=== PATIENT | female | born 1960 | race Caucasian/White ===

== ENCOUNTER 2023-08-30 12:44 | Outpatient (OUT) | payer OTHER, SELFPAY ==
--- NOTE | 2023-08-30 12:52 | VEIN_ITS ---
Patient Name: JONA ALLEN MR#: [id number] : 1960 Exam Date: 08/30/2023 Ordering Doctor: DR HEMANT MCHUGH M.D. RADIOLOGY REPORT PROCEDURE: VC EXT VENOUS REFLUX OSKAR LMTD COMPARISON: None. INDICATIONS: I83.813 Bilateral painful varicose veins TECHNIQUE: Duplex imaging of the lower extremity to assess the deep and superficial venous system for the presence of deep or superficial venous incompetence and to document the location and severity of disease. The study includes evaluation of the great saphenous vein (GSV), anterior accessory saphenous vein (AASV) and small saphenous vein (SSV). Patient scanned in reverse Trendelenburg and standing. FINDINGS: RIGHT LOWER EXTREMITY: Saphenofemoral Junction Reflux: Yes 7.0mm 0.9 sec GSV: Diam (mm) Reflux/ Time (sec) Proximal Thigh 5.5 Yes 1.6 Mid Thigh 4.3 Yes 1.3 Distal Thigh 5.3 Yes 1.2 Prox Calf 7.6 Yes 2.0 Mid Calf 4.2 Yes 0.5 Saphenopopliteal Junction Reflux: 1.3mm No SSV: Proximal Calf 1.5 No Mid Calf 0.8 No AASV: Proximal Thigh 3.7 Yes 1.2 Mid Thigh 2.7 No Distal Thigh Thrombi: No acute or chronic thrombus visualized Compressibility: Normal Flow: Normal Preforator: Dist/med 3.4mm with 0.8s reflux. Mid/med calf 3.1mm with 0.7s reflux. Tech Note: Incompetent GSV. Patent varicose vein mid/med calf 4.6mm with 1.2s reflux. Patent varicose vein prox/med calf 6.9mm with 1.3s reflux. Patent varicose vein medial knee 4.6mm with 1.0s reflux. LEFT LOWER EXTREMITY: Saphenofemoral Junction Reflux: Yes 8.9 mm 2.1 sec GSV: Diam (mm) Reflux/Time (sec) Proximal Thigh 6.3 Yes 2.4 Mid Thigh 4.3 Yes 0.7 Distal Thigh 5.6 Yes 1.7 Prox Calf 3.6 Yes 4.5 Mid Calf 1.7 No Saphenopopliteal Junction Relux: 3.3 mm No SSV: Proximal Calf 2.3 Yes 1.1 Mid Calf No AASV: Proximal Thigh 1.6 Mid Thigh 1.8 Distal Thigh Thrombi: No acute or chronic thrombus visualized Compressibility: Normal Flow: Normal [employer]: Dist/med calf 3.4mm with 1.2s reflux. Dist/med calf 4.6mm with 0.7s reflux. Tech Note: Incompetent GSV. Patent varicose vein mid/med calf 5.6mm with 1.7s reflux. Patent varicose vein dist/med calf 1.1s reflux. CONCLUSION: 1. 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 Dictated by: Osmany Warren M.D. on 08/30/2023 at 14:51 Approved by: Osmany Warren M.D. on 08/30/2023 at 15:44
--- NOTE | 2023-08-30 12:52 | VEIN_ITS ---
Patient Name: JONA ALLEN MR#: [id number] : 1960 Exam Date: 08/30/2023 Ordering Doctor: DR HEMANT MCHUGH M.D. RADIOLOGY REPORT PROCEDURE: VC FACILITY EST COMPREHENSIVE VEIN CENTER - OFFICE VISIT INITIAL COMPARISON: None. PROGRESS NOTES: [age] year old female who presents with a 40 year history of gradual onset dilated bulging veins, discolored veins, leg pain, muscle cramping. The patient's leg symptoms are symmetric bilaterally. There has been a progression of symptoms over time. This increases with prolonged leg dependency. The patient describes an improvement with rest, elevation, exercise, and support stockings. The patient denies any signs and symptoms to suggest arterial ischemia. The patient describes a family history varicose veins on maternal side. The patient has drinking and smoking history of : Occasional alcohol consumption; no tobacco use. Patient has a past medical history significant for hypercoagulopathy. The patient denies a history of deep venous thrombus or pulmonary embolus. See separate history and physical for medication list. No prior treatment for varicose or spider veins. Current use of compression stockings. After review of nurse notes, history and physical exam I discussed at length the pathophysiology of venous hypertension and possible treatments, therapies and strategies available. We discussed at length the importance of elevating the lower extremities above the level of the heart, increased physical activity and compression stocking use. Ultrasound venous reflux study performed today was discussed at length with the patient. The report demonstrates abnormally dilated and incompetent great saphenous veins bilaterally. Multiple dilated incompetent branch saphenous varicosities bilaterally. Segments demonstrating reflux within the right anterior accessory saphenous vein and left small saphenous vein, but vein diameter remains small. PHYSICAL EXAM: The right leg demonstrates multiple varicosities, numerous spider veins, no ulceration, no edema, no skin discoloration. The left leg demonstrates multiple varicosities, numerous spider veins, no ulceration, no edema, no skin discoloration. Both thighs, legs and feet were symmetrically warm to the touch. Good posterior tibial and dorsalis pedis pulses were present bilaterally. VEIN/VC Facility EST Comprehensive IMPRESSION: 1. Bilateral lower extremity venous insufficiency 2. Bilateral lower extremity varicose veins 3. No significant lower extremity subcutaneous edema 4. No flow significant arterial disease 5. CEAP: C2, EC, , CT PLAN: 1. Continued use of compression stockings 2. Elevated legs and increased physical activity symptomatic relief 3. Endovenous laser ablation of right and left great saphenous veins followed by microfoam chemical ablation of incompetent branch saphenous varicosities bilaterally followed by sclerotherapy bilaterally. Nurse notes, history and physical were reviewed and confirmed, see attached forms. The nurse was present throughout the physical exam and consultation Dictated by: Osmany Warren M.D. on 08/30/2023 at 15:44 Approved by: Osmany Warren M.D. on 08/30/2023 at 15:57
== END 2023-08-30 12:45 | disposition home or self-care (01) ==
LOC: VC 12:46
PROVIDERS: PCP Internal Medicine; Visit Provider Radiology Diagnostic Radiology
DX: I83.813 Varicose veins of bilateral lower extremities with pain (principal)
CPT/HCPCS: 93970; G0463

== ENCOUNTER 2023-09-17 07:33 | Outpatient (OUT) | payer OTHER, SELFPAY ==
--- NOTE | 2023-09-17 07:35 | VEIN_ITS ---
[address] [address] Patient Name: JONA ALLEN MRN: [id number] date: 1960 Sex: F Assigned Patient Location: Current Patient Location: Accession/Order Number: [id number] Exam Date: 09/17/2023 08:00 Report Date: 09/17/2023 10:03 At the request of: HEMANT MCHUGH Procedure: VC Endovenous Ablation 1VeinRT EXAMINATION: VC Endovenous Ablation 1Vein right great saphenous vein HISTORY: Pain due to varicose veins of bilateral legs I83.813 COMPARISON: No relevant comparison available. TECHNIQUE: The risks and benefits of the procedure had been previously discussed, and were rediscussed at length. Informed written consent was obtained. Jahaira Monsalve and Donald Corral assisted. Time out procedure was performed. The right lower extremity was prepared and draped in the usual sterile fashion to allow knee flexion in the sterile field. Duplex ultrasound probe was draped in a sterile cover, sterile transmission gel was used. Venous mapping was performed with the areas of dilation and large tributaries marked. The total length was 53.5 cm from the entry 8 cm above the medial malleolus to 3 cm below the saphenofemoral junction. The diameter of the greater saphenous vein ranged from 4-6 mm. A 30 gauge needle and 1% buffered lidocaine was used to anesthetize the entry site. A 4 mm incision was made with a scalpel and the saphenous vein was entered percutaneously under direct ultrasound guidance with a micropuncture set, a single stick was successful in gaining access. A micro-guide wire was inserted and the needle removed. A micro-set including a dilator was inserted over the microwire and the needle and dilator were removed. A 0.018 guide wire was inserted through the micro-set and threaded through the saphenous vein to the saphenofemoral junction. The dilator was removed and an introducer sheath was inserted over the wire until the end of the sheath entered the saphenofemoral junction. The dilator and wire were removed and the 600 micron fiber was introduced and placed and positioned so that it extended beyond the sheath and was 3 cm peripheral to the saphenofemoral femoral junction. Final position of the fiber was determined by ultrasound guidance and duplex imaging. Tumescent anesthetic was delivered by ultrasound guidance. 275 cc of fluid was delivered along the entire course of the saphenous vein. The solution consisted of 1000 cc of normal saline with 40 mL of 1% lidocaine and 20 mL of sodium bicarbonate. A final positioning check was made. The energy source was turned on by means of the foot pedal and the fiber and sheath were withdrawn. The total number of Joules delivered was 2596. The laser was active for 324 seconds under continuous pulse, average laser use of 8 J. Laser start time 8:51 AM 09/17/2023 . Laser stop time 8:57 AM 09/17/2023 . A duplex ultrasound revealed compressibility and flow at the saphenofemoral junction immediately after the procedure. Hemostasis at the access site was achieved. The skin incision of the saphenous vein was closed with a 4 x 4. A compression stocking was applied. Postop instructions were given. A follow up appointment was recommended and scheduled. The patient tolerated the procedure well and was discharged in good condition . VEIN/VC Endovenous Ablation 1VeinRT IMPRESSION: Technically successful endovenous laser ablation of the right great saphenous vein Electronically authenticated by: HEMANT MCHUGH Date: 09/17/2023 10:03
[2023-09-17] MEDS: LIDOCAINE HCL 1% 100 MG/10 ML MDV INJ (08:26)
[2023-09-17] MEDS: 0.9 % SODIUM CHLORIDE 500 ML, LIDOCAINE HCL 20 ML, SODIUM BICARBONATE 10 MEQ INJ (08:27)
== END 2023-09-17 07:34 | disposition home or self-care (01) ==
PROVIDERS: PCP Radiology Diagnostic Radiology; Visit Provider Radiology Diagnostic Radiology
DX: I83.813 Varicose veins of bilateral lower extremities with pain (principal)
CPT/HCPCS: 36478

== ENCOUNTER 2023-09-25 08:06 | Outpatient (OUT) | payer OTHER, SELFPAY ==
--- NOTE | 2023-09-25 08:07 | VEIN_ITS ---
Patient Name: JONA ALLEN MR#: [id number] : 1960 Exam Date: 09/25/2023 Ordering Doctor: DR CORBIN SHEPHERD M.D. RADIOLOGY REPORT PROCEDURE: VC EXT VENOUS RT LMTD COMPARISON: None. INDICATIONS: I80.01 Phlebitis of superficial veins of rt lower extremity TECHNIQUE: Lower extremity lopez scale and Duplex Doppler evaluation of the deep venous system from the inguinal ligament through the calf veins. FINDINGS: REGION: Right lower extremity. THROMBI: Negative for DVT. Heat induced thrombus visualized 0.3 cm from the SFJ. The heat induced thrombus extends from groin to proximal calf. COMPRESSIBILITY: Non-compressible segments corresponding to thrombus FLOW: Areas of no flow corresponding to thrombus CONCLUSION: Post ablation occlusion of the right great saphenous vein heat induced thrombus 3.5 mm from the saphenofemoral junction Dictated by: Corbin Shepherd MD on 09/25/2023 at 08:24 Approved by: Corbin Shepherd MD on 09/25/2023 at 08:25
--- NOTE | 2023-09-25 08:07 | VEIN_ITS ---
Patient Name: JONA ALLEN MR#: [id number] : 1960 Exam Date: 09/25/2023 Ordering Doctor: DR CORBIN SHEPHERD M.D. RADIOLOGY REPORT PROCEDURE: VC FACILITY EST LMTD VEIN CENTER - OFFICE VISIT FOLLOW UP COMPARISON: None. PROGRESS NOTES: The patient reports no significant problems following intravenous laser ablation of the right great saphenous vein. saphenous vein. The patient does report some mild pain along anterior lower leg. The patient has worn her compression stocking. The patient did not require oral analgesics. The patient has exercised as directed. Thrombus right great saphenous vein can be palpated. Area bruising measuring 12 x 3 cm along the anterior medial right lower leg likely related to tumescence injection. No erythema or warmth to suggest cellulitis or thrombophlebitis. No active ulceration Review of the ultrasound performed the same day demonstrates occlusive thrombus extending throughout the treated right great saphenous vein with heat induced thrombus 3.5 mm from the saphenofemoral junction. The epigastric vein is patent. The patient expressed a desire to proceed with treatment of incompetent left great saphenous vein with intravenous laser ablation. VEIN/VC Facility EST LMTD IMPRESSION: 1. Successful ablation of the right great saphenous vein(s). 2. Persistent incompetent left great saphenous vein. PLAN: Intravenous laser ablation left great saphenous vein Nurse notes, history and physical were reviewed and confirmed, see attached forms. The nurse was present throughout the physical exam and consultation Dictated by: Corbin Shepherd MD on 09/25/2023 at 08:34 Approved by: Corbin Shepherd MD on 09/25/2023 at 08:36
== END 2023-09-25 08:07 | disposition home or self-care (01) ==
LOC: VC 08:06
PROVIDERS: PCP Radiology Diagnostic Radiology; Visit Provider Radiology Diagnostic Radiology
DX: I80.01 Phlebitis and thrombophlebitis of superficial vessels of right lower extremity (principal)
CPT/HCPCS: 93971; G0463

== ENCOUNTER 2023-10-03 07:59 | Outpatient (OUT) | payer OTHER, SELFPAY ==
--- NOTE | 2023-10-03 08:00 | VEIN_ITS ---
[address] [address] Patient Name: JONA ALLEN MRN: [id number] date: 1960 Sex: F Assigned Patient Location: Current Patient Location: Accession/Order Number: [id number] Exam Date: 10/03/2023 08:06 Report Date: 10/03/2023 10:13 At the request of: HEMANT MCHUGH Procedure: VC Endovenous Ablation 1VeinLT EXAMINATION: VC Endovenous Ablation 1Vein, left great saphenous vein HISTORY: Pain due to varicose veins of bilateral legs I83.813 COMPARISON: No relevant comparison available. TECHNIQUE: The risks and benefits of the procedure had been previously discussed, and were rediscussed at length. Informed written consent was obtained. Jahaira Monsalve and Donald Corral assisted. Time out procedure was performed. The left lower extremity was prepared and draped in the usual sterile fashion to allow knee flexion in the sterile field. Duplex ultrasound probe was draped in a sterile cover, sterile transmission gel was used. Venous mapping was performed with the areas of dilation and large tributaries marked. The total length was 43 cm from the entry 8 cm below the knee to 3 cm below the saphenofemoral junction. The vein beneath this area was not amenable to ablation due to size and tortuosity. The diameter of the greater saphenous vein ranged from 4-7 mm. A 30 gauge needle and 1% buffered lidocaine was used to anesthetize the entry site. A 4 mm incision was made with a scalpel and the saphenous vein was entered percutaneously under direct ultrasound guidance with a micropuncture set, a single stick was successful in gaining access. A micro-guide wire was inserted and the needle removed. A micro-set including a dilator was inserted over the microwire and the needle and dilator were removed. A 0.018 guide wire was inserted through the micro-set and threaded through the saphenous vein to the saphenofemoral junction. The dilator was removed and an introducer sheath was inserted over the wire until the end of the sheath entered the saphenofemoral junction. The dilator and wire were removed and the 600 micron fiber was introduced and placed and positioned so that it extended beyond the sheath and was 3 cm peripheral to the saphenofemoral femoral junction. Final position of the fiber was determined by ultrasound guidance and duplex imaging. Tumescent anesthetic was delivered by ultrasound guidance. 225 cc of fluid was delivered along the entire course of the saphenous vein. The solution consisted of 1000 cc of normal saline with 40 mL of 1% lidocaine and 20 mL of sodium bicarbonate. A final positioning check was made. The energy source was turned on by means of the foot pedal and the fiber and sheath were withdrawn. The total number of Joules delivered was 2061. The laser was active for 258 seconds under continuous pulse, average laser use of 8 J. Laser start time 8:48 AM 10/03/2023 . Laser stop time 8:53 AM 10/03/2023 . A duplex ultrasound revealed compressibility and flow at the saphenofemoral junction immediately after the procedure. Hemostasis at the access site was achieved. The skin incision of the saphenous vein was closed with a 4 x 4. A compression stocking was applied. Postop instructions were given. A follow up appointment was recommended and scheduled. The patient tolerated the procedure well and was discharged in good condition . VEIN/VC Endovenous Ablation 1VeinLT IMPRESSION: Technically successful endovenous laser ablation of the left great saphenous Electronically authenticated by: HEMANT MCHUGH Date: 10/03/2023 10:13
--- OUTSIDE RECORDS SUMMARY | 2023-10-03 08:18 | XMS_ITS | CCD ---
Author Organization [facility] Care Team Providers Care Account [facility] [employer] Name Role Phone ZEUS LAMAS Unavailable Unavailable ZEUS LAMAS Unavailable Unavailable ZEUS LAMAS Unavailable Unavailable DO Zeus Lamas Primary Care Provider DO Zeus Lamas Attending Provider [phone] DO Zeus Lamas Referring Provider [phone] MD Rosa Romo Attending Provider DO Zeus Lamas Primary Care Provider DO Zeus Lamas Referring Provider MD Rosa Romo Attending Provider DO Zeus Lamas Primary Care Provider DO Mckenzie Perkins Attending Provider DO Zeus Lamas Primary Care Provider DO Zeus Lamas Attending Provider DO Zeus Lamas Referring Provider [phone] MD Rosa Romo Attending Provider DO Zeus Lamas Referring Provider MD Rosa Romo Attending Provider [phone] MCKENZIE PERKINS Attending Unavailable DO Zeus Lamas Primary Care Provider DO Mckenzie Perkins Attending Provider Zeus Lamas Admitting Unavailable Zeus Lamas Primary Care Unavailable Zeus Lamas Attending Unavailable Mckenzie Perkins Admitting Unavailable Mckenzie Perkins Attending Unavailable Zeus Lamas Primary Care Unavailable Rosa Romo Admitting Unavailable Rosa Romo Attending Unavailable Zeus Lamas Primary Care Unavailable Zeus Lamas Referring Unavailable Medications Current Medications Medication Drug Class(es) Dates Sig (Normalized) Sig (Original) acetaminophen 325 mg oral tablet (8 sources) Start: 05-31-2020 take 1 tablet by mouth every week Acetaminophen (Tylenol) 325 mg Tablet Active 325 MG PO Once May 31, 2020 1:00am ONCE A WEEK ascorbic acid 500 mg extended release oral capsule (8 sources) Vitamin C Start: 02-06-2018 take 1 capsule by mouth once daily Ascorbic Acid (Vitamin C) (Vitamin C) 500 mg Capsule, Extended Release Active 500 MG PO Daily February 06, 2018 12:00am aspirin 81 mg delayed release oral tablet (8 sources) Platelet Aggregation Inhibitor, Nonsteroidal Anti-inflammatory Drug Start: 09-13-2020 take 1 tablet by mouth once daily Aspirin (Aspir-81) 81 mg Tablet,Delayed Release (Dr/Ec) Active 81 MG PO Daily September 13, 2020 12:00am cholecalciferol 0.05 mg oral tablet (8 sources) Vitamin D Start: 02-06-2018 take 1 tablet by mouth once daily Cholecalciferol (Vitamin D3) (Vitamin D3) 2,000 unit Tablet Active 1 TAB PO Daily February 06, 2018 12:00am loratadine 10 mg oral tablet (8 sources) Start: 02-06-2018 take 1 tablet by mouth once daily Loratadine (Claritin) 10 mg Tablet Active 10 MG PO Daily February 06, 2018 12:00am Magnesium (8 sources) Start: 02-06-2018 take 250 mg by mouth once daily Magnesium Active 250 MG PO Daily February 06, 2018 12:00am Completed/Discontinued Medications Medication Drug Class(es) Dates Sig (Normalized) Sig (Original) famotidine 20 mg oral tablet (8 sources) Histamine-2 Receptor Antagonist Start: 05-31-2020 End: 05-19-2021 take 1 tablet by mouth once daily at bedtime Famotidine (Pepcid) 20 mg Tablet Discontinued 20 MG PO Daily at bedtime May 31, 2020 1:00am May 19, 2021 4:12pm Problems Active Problems Problem Classification Problem Date Documented Da te Episodic/Chronic Abdominal pain (13 sources) Epigastric pain; Translations: [Epigastric pain] 09-14-2020 Episodic Deficiency and other anemia (8 sources) Iron deficiency anemia; Translations: [Iron deficiency anemia, unspecified] 09-17-2021 Episodic Deficiency and other anemia (5 sources) Iron deficiency anemia, unspecified; Translations: [Iron deficiency anemia, unspecified] 12-23-2021 Episodic Neoplasms of unspecified nature or uncertain behavior (14 sources) Essential thrombocythemia; Translations: [Essential (hemorrhagic) thrombocythemia] Onset: 09-12-2023 09-14-2020 Chronic Neoplasms of unspecified nature or uncertain behavior (13 sources) Thrombocytosis; Translations: [Thrombocythemia] 05-31-2020 Episodic Other screening for suspected conditions (not mental disorders or infectious disease) (9 sources) Patient encounter status; Translations: [Encounter for screening for malignant neoplasm of colon] Onset: 09-11-2023 05-31-2020 Episodic Past or Other Problems Problem Classification Problem Date Documented Da te Episodic/Chronic Other upper respiratory infections (1 source) Acute maxillary sinusitis, unspecified; Translations: [Acute maxillary sinusitis, unspecified] Onset: 03-19-2023 Episodic Results Test Name Value Interpretation Reference Range Facility Complete Blood Count Auto Di ffon 09-12-2023 Basophils (Bld) [#/Vol] 0.1 10*3/uL Normal 0.0-0.2 [facility] Comment on above: Result Comment: PERF ORMED BY: [place] [address] PATHOLOGIST JINGLE WRITER MIUGEL LARSEN M.D. Performed By: #### C BC, CMP #### [address] Basophils/100 WBC (Bld) 1.0 % Normal . [facility] Comment on above: Performed By: #### C BC, CMP #### [place] [address] [place] Eosinophils (Bld) [#/Vol] 0.3 10*3/uL Normal 0.0-0.45 [facility] Comment on above: Performed By: #### C BC, CMP #### [place] [address] [place] Eosinophils/100 WBC (Bld) 4.8 % Normal . [facility] Comment on above: Performed By: #### C BC, CMP #### [address] Erythrocyte distribution width (RBC) [Ratio] 16.0 % High 11.9-15.3 [facility] Comment on above: Performed By: #### C BC, CMP #### [address] Hematocrit (Bld) [Volume fraction] 42.6 % Normal 34.0-46.4 [facility] Comment on above: Performed By: #### C BC, CMP #### [address] Hemoglobin (Bld) [Mass/Vol] 13.8 g/dL Normal 11.8-15.4 [facility] Comment on above: Performed By: #### C BC, CMP #### [address] Lymphocytes (Bld) [#/Vol] 2.3 10*3/uL Normal 1.00-4.8 [facility] Comment on above: Performed By: #### C BC, CMP #### [address] Lymphocytes/100 WBC (Bld) 32.7 % Normal . [facility] Comment on above: Performed By: #### C BC, CMP #### [address] MCH (RBC) [Entitic mass] 28.9 pg Normal 24.7-34.3 [facility] Comment on above: Performed By: #### C BC, CMP #### [address] MCV (RBC) [Entitic vol] 89.0 fL Normal 80-100 [facility] Comment on above: Performed By: #### C BC, CMP #### [address] Mean Corpuscular HGB Conc 32.5 g/dL Normal 32.0-35.0 [facility] Comment on above: Performed By: #### C BC, CMP #### [address] Monocytes (Bld) [#/Vol] 0.5 10*3/uL Normal 0.0-0.8 [facility] Comment on above: Performed By: #### C BC, CMP #### [place] [address] [place] Monocytes/100 WBC (Bld) 7.2 % Normal . [facility] Comment on above: Performed By: #### C BC, CMP #### [address] Neutrophils (Bld) [#/Vol] 3.9 10*3/uL Normal 1.8-7.7 [facility] Comment on above: Performed By: #### C BC, CMP #### [address] Neutrophils/100 WBC (Bld) 54.3 % Normal . [facility] Comment on above: Performed By: #### C BC, CMP #### [address] NRBC% 0.0 /100{WBC} Normal 0-0.5 [facility] Comment on above: Performed By: #### C BC, CMP #### [address] Platelet mean volume (Bld) [Entitic vol] 8.2 fL Normal 6.3-10.7 [facility] Comment on above: Performed By: #### C BC, CMP #### [place] [address] [place] Platelets (Bld) [#/Vol] 599 10*3/uL High 150-450 [facility] Comment on above: Performed By: #### C BC, CMP #### [place] [address] [place] RBC (Bld) [#/Vol] 4.78 10*6/uL Normal 3.60-5.00 [facility] Comment on above: Performed By: #### C BC, CMP #### [address] WBC (Bld) [#/Vol] 7.1 10*3/uL Normal 3.8-11.6 [facility] Comment on above: Performed By: #### C BC, CMP #### [address] Comprehensive Metabolic Pane douglas 09-12-2023 Albumin [Mass/Vol] 4.8 g/dL Normal 3.5-5.7 [facility] Comment on above: Performed By: #### C BC, CMP #### [address] Albumin/Globulin [Mass ratio] 2.2 {ratio} Normal [facility] Comment on above: Performed By: #### C BC, CMP #### [address] ALP [Catalytic activity/Vol] 56 U/L Normal 34-104 [facility] Comment on above: Performed By: #### C BC, CMP #### [address] ALT [Catalytic activity/Vol] 15 U/L Normal 7-52 [facility] Comment on above: Performed By: #### C BC, CMP #### [address] Anion gap [Moles/Vol] 9.3 mmol/L Normal 6.0-15.0 [facility] Comment on above: Performed By: #### C BC, CMP #### [address] AST [Catalytic activity/Vol] 21 U/L Normal 13-39 [facility] Comment on above: Performed By: #### C BC, CMP #### [address] Bilirubin [Mass/Vol] 1.2 mg/dL High 0.3-1.0 [facility] Comment on above: Performed By: #### C BC, CMP #### [address] Calcium [Mass/Vol] 10.3 mg/dL Normal 8.6-10.3 [facility] Comment on above: Performed By: #### C BC, CMP #### [address] Chloride [Moles/Vol] 103 mmol/L Normal 98-107 [facility] Comment on above: Performed By: #### C BC, CMP #### [address] CO2 [Moles/Vol] 32.3 mmol/L High 21.0-31.0 [facility] Comment on above: Performed By: #### C BC, CMP #### [address] Creatinine [Mass/Vol] 0.82 mg/dL Normal 0.60-1.20 [facility] Comment on above: Performed By: #### C BC, CMP #### [address] Creatinine Clr Calc Pharmacy 70.84 Normal [facility] Comment on above: Result Comment: PERF ORMED BY: [place] [address] PATHOLOGIST JINGLE WRITER MIGUEL LARSEN M.D. Performed By: #### C BC, CMP #### [address] GFR/1.73 sq M.predicted MDRD (S/P/Bld) [Vol rate/Area] mL/min/{1.73_m2} Normal [facility] Comment on above: Performed By: #### C BC, CMP #### [address] Globulin (S) [Mass/Vol] 2.2 g/dL Normal [facility] Comment on above: Performed By: #### C BC, CMP #### [address] Glucose [Mass/Vol] 77 mg/dL Normal 70-100 [facility] Comment on above: Result Comment: [facility] [place] Glucose Reference Range is dependent on time and content of last meal. Glucose of more than 200 mg/dL in a nonstressed, ambulatory subject supports the diagnosis of Diabetes Mellitus. ADA recommended reference range Performed By: #### C BC, CMP #### [facility] [address] Potassium [Moles/Vol] 4.6 mmol/L Normal 3.5-5.1 [facility] Comment on above: Performed By: #### C BC, CMP #### [facility] [address] Protein [Mass/Vol] 7.0 g/dL Normal 6.4-8.9 [facility] Comment on above: Performed By: #### C BC, CMP #### [facility] [address] Sodium [Moles/Vol] 140 mmol/L Normal 136-145 [facility] Comment on above: Performed By: #### C BC, CMP #### [facility] [address] [place] [id number] [place] Urea nitrogen [Mass/Vol] 18 mg/dL Normal 7-25 [facility] Comment on above: Performed By: #### C BC, CMP #### [facility] [address] MM screening mammo BI w/CADo n 09-11-2023 MM screening mammo BI w/CAD [facility] [place] [address] [place] [address] Mammography Report Signed Patient: Gloria Allen MR#: [id number] 94 : 1960 Acct:[id number] Age/Sex: 63 / F ADM Date: 09/11/23 Loc: [place] Room: Type: [facility] Attending Dr: Mckenzie Perkins DO Copies to: DO Mckenzie Stafford DO Ordering Provider: Mckenzie Perkins DO Date of Service: 09/11/23 MM/MM screening mammo BI w/CAD: SCREENING CLINICAL DATA: Screening for malignancy. BILATERAL SCREENING MAMMOGRAMS - FULL FIELD DIGITAL WITH TOMOSYNTHESIS AND CAD Tomosynthesis craniocaudal and mediolateral oblique views of both breasts were obtained using low- dose digital technique. Comparison is made to prior studies from June 09, 2020 through September 08, 2022 (left). This examination was reviewed with the aid of CAD. There are scattered fibroglandular densities. Benign and vascular calcifications are present. A right intramammary lymph node is again seen. There are no developing masses, typically malignant calcifications or architectural distortion. There has been no significant interval change. MM/MM screening mammo BI w/CAD IMPRESSION: NO MAMMOGRAPHIC EVIDENCE OF MALIGNANCY. ROUTINE FOLLOW-UP IS RECOMMENDED IN ONE YEAR. RESULT CODE: 2 Benign Findings(s) DENSITY CODE: 2 (approximately 25-50% glandular) FOLLOW UP: 1YR The false-negative rate of mammography is approximately 10-percent. Management of a palpable abnormality must be based on clinical grounds. Patient was entered into a reminder system with a target due date for the next mammogram. Impression dictated by: Diana Matos M.D.09/11/2023 1:30 PM Dictation Location: [facility] Transcribed By: CHRISTOFER 09/11/23 1330 Dictated By: Diana Matos MD 09/11/23 1327 Signed By: 09/11/23 1330 Normal [facility] Alanine aminotransferase [En zymatic activity/volume] in Serum or PlasmaOrdered By: Rosa Romo on 03-19-2023 ALT [Catalytic activity/Vol] 13 U/L 7-52 [facility] Albumin [Mass/volume] in Ser um or Plasma by Bromocresol green (BCG) dye binding methoOrdered By: Rosa Romo on 03-19-2023 Albumin BCG dye [Mass/Vol] 4.5 g/dL 3.5-5.7 [facility] Alkaline phosphatase [Enzyma tic activity/volume] in Serum or PlasmaOrdered By: Rosa Romo on 03-19-2023 ALP [Catalytic activity/Vol] 56 U/L 34-104 [facility] Aspartate aminotransferase [ Enzymatic activity/volume] in Serum or PlasmaOrdered By: Rosa Romo on 03-19-2023 AST [Catalytic activity/Vol] 19 U/L 13-39 [facility] Basophils Auto (Bld) [#/Vol] Ordered By: Rosa Romo on 03-19-2023 Basophils (Bld) [#/Vol] 0.1 10*3/uL 0.0-0.2 [facility] Basophils/100 WBC Auto (Bld) Ordered By: Rosa Romo on 03-19-2023 Basophils/100 WBC (Bld) 0.9 % . [facility] Bilirubin.total [Mass/volume ] in Serum or PlasmaOrdered By: Rosa Romo on 03-19-2023 Bilirubin [Mass/Vol] 1.4 mg/dL 0.3-1.0 [facility] Comment on above: Samples from patient s who have taken Naproxen have shown spurious elevation in Total Bilirubin levels. A metabolite of Naproxen, O-desmethylnaproxen, has been shown to interfere with the Pop-Adeel method for measuring Total Bilirubin. Calcium [Mass/volume] in Ser um or PlasmaOrdered By: Rosa Romo on 03-19-2023 Calcium [Mass/Vol] 9.7 mg/dL 8.6-10.3 [facility] Carbon dioxide, total [Moles /volume] in Serum or PlasmaOrdered By: Rosa Romo on 03-19-2023 CO2 [Moles/Vol] 31.9 mmol/L 21.0-31.0 [facility] Chloride [Moles/volume] in S anne or PlasmaOrdered By: Rosa Romo on 03-19-2023 Chloride [Moles/Vol] 104 mmol/L 98-107 [facility] Cholesterol [Mass/volume] in Serum or PlasmaOrdered By: Zeus Lamas on 03-19-2023 Cholesterol [Mass/Vol] 179 mg/dL 140-200 [facility] Comment on above: Chol less than 200 m g/dl low riskChol 201-239 mg/dl borderline riskChol 240 mg/dl and greater high risk Cholesterol in LDL Calc [Mas s/Vol]Ordered By: Zeus Lamas on 03-19-2023 Cholesterol in LDL [Mass/Vol] 123 mg/dL 0-100 [facility] Comment on above: LDL ATP III CLASSIFI CATIONLDL less than 100 mg/dL OptimalLDL 100-129 mg/dL Near or above optimalLDL 130-159 mg/dL Borderline highLDL 160-189 mg/dL HighLDL greater than 189 mg/dL Very high Cholesterol in VLDL Calc [Ma ss/Vol]Ordered By: Zeus Lamas on 03-19-2023 Cholesterol in VLDL [Mass/Vol] 12 mg/dL [facility] Comprehensive Metabolic Pane douglas 03-19-2023 Albumin [Mass/Vol] 4.5 g/dL Normal 3.5-5.7 [facility] Comment on above: Order Comment: PT FA STED 12 HOURS Performed By: #### S CAN CBC, CMP #### [facility] [address] Albumin/Globulin [Mass ratio] 2.0 {ratio} Normal [facility] Comment on above: Order Comment: PT FA STED 12 HOURS Performed By: #### S CAN CBC, CMP #### [facility] [address] [place] [address] [place] ALP [Catalytic activity/Vol] 56 U/L Normal 34-104 [facility] Comment on above: Order Comment: PT FA STED 12 HOURS Performed By: #### S CAN CBC, CMP #### [place] [address] [place] ALT [Catalytic activity/Vol] 13 U/L Normal 7-52 [facility] Comment on above: Order Comment: PT FA STED 12 HOURS Performed By: #### S CAN CBC, CMP #### [facility] [address] [place] [address] [place] Anion gap [Moles/Vol] 9.3 mmol/L Normal 6.0-15.0 [facility] Comment on above: Order Comment: PT FA STED 12 HOURS Performed By: #### S CAN CBC, CMP #### [facility] [address] [place] [id number] [place] AST [Catalytic activity/Vol] 19 U/L Normal 13-39 [facility] Comment on above: Order Comment: PT FA STED 12 HOURS Performed By: #### S CAN CBC, CMP #### [address] [address] [place] Bilirubin [Mass/Vol] 1.4 mg/dL High 0.3-1.0 [facility] Comment on above: Order Comment: PT FA STED 12 HOURS Result Comment: Samp les from patients who have taken Naproxen have shown spurious elevation in Total Bilirubin levels. A metabolite of Naproxen, O-desmethylnaproxen, has been shown to interfere with the Jendrassik-Grof method for measuring Total Bilirubin. Performed By: #### S CAN CBC, CMP #### [address] Calcium [Mass/Vol] 9.7 mg/dL Normal 8.6-10.3 [facility] Comment on above: Order Comment: PT FA STED 12 HOURS Performed By: #### S CAN CBC, CMP #### [address] Chloride [Moles/Vol] 104 mmol/L Normal 98-107 [facility] Comment on above: Order Comment: PT FA STED 12 HOURS Performed By: #### S CAN CBC, CMP #### [address] CO2 [Moles/Vol] 31.9 mmol/L High 21.0-31.0 [facility] Comment on above: Order Comment: PT FA STED 12 HOURS Performed By: #### S CAN CBC, CMP #### [place] [address] [place] Creatinine [Mass/Vol] 0.77 mg/dL Normal 0.60-1.20 [facility] Comment on above: Order Comment: PT FA STED 12 HOURS Performed By: #### S CAN CBC, CMP #### [place] [address] [place] Creatinine Clr Calc Pharmacy 76.42 Normal [facility] Comment on above: Order Comment: PT FA STED 12 HOURS Result Comment: PERF ORMED BY: [place] [address] PATHOLOGIST JINGLE WRITER MIGUEL LARSEN M.D. Performed By: #### S CAN CBC, CMP #### [facility] [address] [place] [address] [place] GFR/1.73 sq M.predicted MDRD (S/P/Bld) [Vol rate/Area] mL/min/{1.73_m2} Normal [facility] Comment on above: Order Comment: PT FA STED 12 HOURS Performed By: #### S CAN CBC, CMP #### [facility] [address] [place] [address] [place] Globulin (S) [Mass/Vol] 2.2 g/dL Normal [facility] Comment on above: Order Comment: PT FA STED 12 HOURS Performed By: #### S CAN CBC, CMP #### [address] Glucose [Mass/Vol] 79 mg/dL Normal 70-100 [facility] Comment on above: Order Comment: PT FA STED 12 HOURS Result Comment: [place] Glucose Reference Range is dependent on time and content of last meal. Glucose of more than 200 mg/dL in a nonstressed, ambulatory subject supports the diagnosis of Diabetes Mellitus. ADA recommended reference range Performed By: #### S CAN CBC, CMP #### [place] [address] [place] Potassium [Moles/Vol] 4.2 mmol/L Normal 3.5-5.1 [facility] Comment on above: Order Comment: PT FA STED 12 HOURS Performed By: #### S CAN CBC, CMP #### [place] [address] [place] Protein [Mass/Vol] 6.7 g/dL Normal 6.4-8.9 [facility] Comment on above: Order Comment: PT FA STED 12 HOURS Performed By: #### S CAN CBC, CMP #### [place] [address] [place] Sodium [Moles/Vol] 141 mmol/L Normal 136-145 [facility] Comment on above: Order Comment: PT FA STED 12 HOURS Performed By: #### S CAN CBC, CMP #### [place] [address] [place] Urea nitrogen [Mass/Vol] 13 mg/dL Normal 7-25 [facility] Comment on above: Order Comment: PT FA STED 12 HOURS Performed By: #### S CAN CBC, CMP #### [facility] [address] [place] [id number] [facility] Creatinine [Mass/volume] in Serum or PlasmaOrdered By: Rosa Romo on 03-19-2023 Creatinine [Mass/Vol] 0.77 mg/dL 0.60-1.20 [facility] Eosinophils Auto (Bld) [#/Vo l]Ordered By: Rosa Romo on 03-19-2023 Eosinophils (Bld) [#/Vol] 0.3 10*3/uL 0.0-0.45 [facility] Eosinophils/100 WBC Auto (Bl d)Ordered By: Rosa Romo on 03-19-2023 Eosinophils/100 WBC (Bld) 4.9 % . [facility] Erythrocyte distribution wid th Auto (RBC) [Ratio]Ordered By: Rosa Romo on 03-19-2023 Erythrocyte distribution width (RBC) [Ratio] 15.4 % 11.9-15.3 [facility] Globulin Calc (S) [Mass/Vol] Ordered By: Rosa Romo on 03-19-2023 Globulin (S) [Mass/Vol] 2.2 g/dL [facility] Glucose [Mass/volume] in Ser um or PlasmaOrdered By: Rosa Romo on 03-19-2023 Glucose [Mass/Vol] 79 mg/dL 70-100 [facility] Comment on above: ADA recommended refe rence rangeRandom Glucose Reference Range is dependent on time and content of last meal. Glucose of more than 200 mg/dL in a nonstressed, ambulatory subject supports the diagnosis of Diabetes Mellitus. Hematocrit Auto (Bld) [Volum e fraction]Ordered By: Rosa Romo on 03-19-2023 Hematocrit (Bld) [Volume fraction] 41.5 % 34.0-46.4 [facility] Hemoglobin [Mass/volume] in BloodOrdered By: Rosa Romo on 03-19-2023 Hemoglobin (Bld) [Mass/Vol] 13.7 g/dL 11.8-15.4 [facility] Leukocytes [#/volume] correc prema for nucleated erythrocytes in Blood by Automated counOrdered By: Rosa Romo on 03-19-2023 WBC corrected for nucl RBC Auto (Bld) [#/Vol] 6.5 10*3/uL 3.8-11.6 [facility] Lipid Panelon 03-19-2023 Cholesterol [Mass/Vol] 179 mg/dL Normal 140-200 [facility] Comment on above: Order Comment: PT FA STED 12 HOURS Result Comment: Chol less than 200 mg/dl low risk Chol 201-239 mg/dl borderline risk Chol 240 mg/dl and greater high risk Performed By: #### L IPID #### [facility] [address] [place] [address] [place] Cholesterol in HDL [Mass/Vol] 44 mg/dL Normal 23-92 [facility] Comment on above: Order Comment: PT FA STED 12 HOURS Result Comment: HDL CHOL ATP-III CLASSIFICATION Cardiovascular Risk HDL > or equal to 60 mg/dL LOW HDL < 40 mg/dL HIGH Performed By: #### L IPID #### [facility] [address] Cholesterol.total/Chol esterol in HDL [Mass ratio] 4.1 {ratio} Normal <5.0 [facility] Group Comment on above: Order Comment: PT FA STED 12 HOURS Result Comment: PERF ORMED BY: [place] [address] PATHOLOGIST JINGLE WRITER MIGUEL LARSEN M.D. Performed By: #### L IPID #### [facility] [address] LDL Cholesterol,Calculated 123 mg/dL High 0-100 [facility] Comment on above: Order Comment: PT FA STED 12 HOURS Result Comment: LDL ATP III CLASSIFICATION LDL less than 100 mg/dL Optimal LDL 100-129 mg/dL Near or above optimal LDL 130-159 mg/dL Borderline high LDL 160-189 mg/dL High LDL greater than 189 mg/dL Very high Performed By: #### L IPID #### [facility] [address] [place] [id number] [place] Triglyceride w/Reflex 62 mg/dL Normal 0-149 [facility] Comment on above: Order Comment: PT FA STED 12 HOURS Result Comment: TRIG ATP III CLASSIFICATION TRIG less than 150 mg/dL Normal TRIG 150-199 mg/dL Borderline high TRIG 200-500 mg/dL High TRIG greater than 500 mg/dL Very high Standard traceable to the Center for Disease Conrtrol and Prevention (CDC) test method. Performed By: #### L IPID #### [facility] [address] VLDL CHOLESTEROL 12 mg/dL Normal [facility] Comment on above: Order Comment: PT FA STED 12 HOURS Performed By: #### L IPID #### [facility] [address] Lymphocytes Auto (Bld) [#/Vo l]Ordered By: Rosa Romo on 03-19-2023 Lymphocytes (Bld) [#/Vol] 2.1 10*3/uL 1.00-4.8 [facility] Lymphocytes/100 WBC Auto (Bl d)Ordered By: Rosa Romo on 03-19-2023 Lymphocytes/100 WBC (Bld) 32.8 % . [facility] MCH Auto (RBC) [Entitic mass ]Ordered By: Rosa Romo on 03-19-2023 MCH (RBC) [Entitic mass] 28.8 pg 24.7-34.3 [facility] MCHC Auto (RBC) [Mass/Vol]Or dered By: Rosa Romo on 03-19-2023 MCHC (RBC) [Mass/Vol] 33.1 g/dL 32.0-35.0 [facility] MCV Auto (RBC) [Entitic vol] Ordered By: Rosa Romo on 03-19-2023 MCV (RBC) [Entitic vol] 87.1 fL 80-100 [facility] Monocytes Auto (Bld) [#/Vol] Ordered By: Rosa Romo on 03-19-2023 Monocytes (Bld) [#/Vol] 0.5 10*3/uL 0.0-0.8 [facility] Monocytes/100 WBC Auto (Bld) Ordered By: Rosa Romo on 03-19-2023 Monocytes/100 WBC (Bld) 7.3 % . [facility] Neutrophils Auto (Bld) [#/Vo l]Ordered By: Rosa Romo on 03-19-2023 Neutrophils (Bld) [#/Vol] 3.5 10*3/uL 1.8-7.7 [facility] Neutrophils/100 WBC Auto (Bl d)Ordered By: Rosa Romo on 03-19-2023 Neutrophils/100 WBC (Bld) 54.1 % . [facility] No Panel InformationOrdered By: Rosa Romo on 03-19-2023 Estimated GFR (CKD-EPI) > 60.0 mL/Min [facility] Creatinine Clearance (Chem 76.42 [facility] Nucleated erythrocytes [Pres ence] in Blood by Automated countOrdered By: Rosa Romo on 03-19-2023 Nucleated RBC Auto Ql (Bld) 0.0 /100{WBC} 0-0.5 [facility] Platelet adequacy [Presence] in Blood by Light microscopyOrdered By: Rosa Romo on 03-19-2023 Platelets LM Ql (Bld) Increased Normal [facility] Platelet mean volume Auto (B ld) [Entitic vol]Ordered By: Rosa Romo on 03-19-2023 Platelet mean volume (Bld) [Entitic vol] 8.5 fL 6.3-10.7 [facility] Platelet morphology finding [Identifier] in BloodOrdered By: Rosa Romo on 03-19-2023 Platelet morphology finding Nom (Bld) Normal Normal [facility] Platelets Auto (Bld) [#/Vol] Ordered By: Rosa Romo on 03-19-2023 Platelets (Bld) [#/Vol] 537 10*3/uL 150-450 [facility] Potassium [Moles/volume] in Serum or PlasmaOrdered By: Rosa Romo on 03-19-2023 Potassium [Moles/Vol] 4.2 mmol/L 3.5-5.1 [facility] Protein [Mass/volume] in Ser um or PlasmaOrdered By: Rosa Romo on 03-19-2023 Protein [Mass/Vol] 6.7 g/dL 6.4-8.9 [facility] RBC Auto (Bld) [#/Vol]Ordere d By: Rosa Romo on 03-19-2023 RBC (Bld) [#/Vol] 4.76 10*6/uL 3.60-5.00 [facility] RBC morphologyOrdered By: Rosie Romo on 03-19-2023 RBC morphology finding Nom (Bld) Normal Normal [facility] Scan and CBCon 03-19-2023 Basophils (Bld) [#/Vol] 0.1 10*3/uL Normal 0.0-0.2 [facility] Comment on above: Performed By: #### S CAN CBC, CMP #### [facility] [address] Basophils/100 WBC (Bld) 0.9 % Normal . [facility] Comment on above: Performed By: #### S CAN CBC, CMP #### [facility] [address] [place] [address] Eosinophils (Bld) [#/Vol] 0.3 10*3/uL Normal 0.0-0.45 [facility] Comment on above: Performed By: #### S CAN CBC, CMP #### [address] Eosinophils/100 WBC (Bld) 4.9 % Normal . [facility] Comment on above: Performed By: #### S CAN CBC, CMP #### [address] Erythrocyte distribution width (RBC) [Ratio] 15.4 % High 11.9-15.3 [facility] Comment on above: Performed By: #### S CAN CBC, CMP #### [place] [address] [place] Hematocrit (Bld) [Volume fraction] 41.5 % Normal 34.0-46.4 [facility] Comment on above: Performed By: #### S CAN CBC, CMP #### [facility] [address] [place] [address] Hemoglobin (Bld) [Mass/Vol] 13.7 g/dL Normal 11.8-15.4 [facility] Comment on above: Performed By: #### S CAN CBC, CMP #### [address] [place] [address] [place] Lymphocytes (Bld) [#/Vol] 2.1 10*3/uL Normal 1.00-4.8 [facility] Comment on above: Performed By: #### S CAN CBC, CMP #### [address] Lymphocytes/100 WBC (Bld) 32.8 % Normal . [facility] Comment on above: Performed By: #### S CAN CBC, CMP #### [address] MCH (RBC) [Entitic mass] 28.8 pg Normal 24.7-34.3 [facility] Comment on above: Performed By: #### S CAN CBC, CMP #### [address] MCV (RBC) [Entitic vol] 87.1 fL Normal 80-100 [facility] Comment on above: Performed By: #### S CAN CBC, CMP #### [address] Mean Corpuscular HGB Conc 33.1 g/dL Normal 32.0-35.0 [facility] Comment on above: Performed By: #### S CAN CBC, CMP #### [place] [address] [place] Monocytes (Bld) [#/Vol] 0.5 10*3/uL Normal 0.0-0.8 [facility] Comment on above: Performed By: #### S CAN CBC, CMP #### [place] [address] [place] Monocytes/100 WBC (Bld) 7.3 % Normal . [facility] Comment on above: Performed By: #### S CAN CBC, CMP #### [address] Neutrophils (Bld) [#/Vol] 3.5 10*3/uL Normal 1.8-7.7 [facility] Comment on above: Performed By: #### S CAN CBC, CMP #### [address] Neutrophils/100 WBC (Bld) 54.1 % Normal . [facility] Comment on above: Performed By: #### S CAN CBC, CMP #### [address] NRBC% 0.0 /100{WBC} Normal 0-0.5 [facility] Comment on above: Performed By: #### S CAN CBC, CMP #### [address] Platelet Estimate Increased Normal Normal [facility] Comment on above: Performed By: #### S CAN CBC, CMP #### [address] Platelet mean volume (Bld) [Entitic vol] 8.5 fL Normal 6.3-10.7 [facility] Comment on above: Performed By: #### S CAN CBC, CMP #### [address] Platelet Morphology Normal Normal Normal [facility] Comment on above: Result Comment: PERF ORMED BY: [place] [address] PATHOLOGIST JINGLE WRITER MIGUEL LARSEN M.D. Performed By: #### S CAN CBC, CMP #### [address] Platelets (Bld) [#/Vol] 537 10*3/uL High 150-450 [facility] Comment on above: Performed By: #### S CAN CBC, CMP #### [address] RBC (Bld) [#/Vol] 4.76 10*6/uL Normal 3.60-5.00 [facility] Comment on above: Performed By: #### S CAN CBC, CMP #### [address] RBC morphology finding Nom (Bld) Normal Normal Normal [facility] Comment on above: Performed By: #### S CAN CBC, CMP #### [facility] [address] WBC (Bld) [#/Vol] 6.5 10*3/uL Normal 3.8-11.6 [facility] Comment on above: Performed By: #### S CAN CBC, CMP #### [facility] [address] Serum or plasma albumin/glob ulin mass ratioOrdered By: Rosa Romo on 03-19-2023 Albumin/Globulin [Mass ratio] 2.0 {ratio} [facility] Serum or plasma anion gap de terminationOrdered By: Rosa Romo on 03-19-2023 Anion gap [Moles/Vol] 9.3 mmol/L 6.0-15.0 [facility] Serum or plasma high density lipoprotein (HDL) cholesterol measurementOrdered By: Zeus Lamas on 03-19-2023 Cholesterol in HDL [Mass/Vol] 44 mg/dL [facility] Comment on above: HDL CHOL ATP-III CLA SSIFICATION Cardiovascular RiskHDL > or equal to 60 mg/dL LOWHDL < 40 mg/dL HIGH Serum or plasma total choles terol/high density lipoprotein (HDL) cholesterol mass ratOrdered By: Zeus Lamas on 03-19-2023 Cholesterol.total/Chol esterol in HDL [Mass ratio] 4.1 {ratio} <5.0 [facility] Sodium [Moles/volume] in Ser um or PlasmaOrdered By: Rosa Romo on 03-19-2023 Sodium [Moles/Vol] 141 mmol/L 136-145 [facility] Triglyceride [Mass/volume] i n Serum or PlasmaOrdered By: Zeus Lamas on 03-19-2023 Triglyceride [Mass/Vol] 62 mg/dL 0-149 [facility] Comment on above: TRIG ATP III CLASSIF ICATIONTRIG less than 150 mg/dL NormalTRIG 150-199 mg/dL Borderline highTRIG 200-500 mg/dL High TRIG greater than 500 mg/dL Very highStandard traceable to the Center for Disease Conrtrol and Prevention (CDC) test method. Urea nitrogen [Mass/volume] in Serum or PlasmaOrdered By: Rosa Romo on 03-19-2023 Urea nitrogen [Mass/Vol] 13 mg/dL 12-19 [facility] WBC Auto (Bld) [#/Vol]Ordere d By: Rosa Romo on 03-19-2023 WBC (Bld) [#/Vol] 6.5 10*3/uL 3.8-11.6 [facility] Complete Blood Count Auto Di ffon 09-22-2022 Basophils (Bld) [#/Vol] 0.1 10*3/uL Normal 0.0-0.2 [facility] Comment on above: Result Comment: PERF ORMED BY: [place] [address] PATHOLOGIST JINGLE WRITER MIGUEL LARSEN M.D. Performed By: #### C BC #### [address] Basophils/100 WBC (Bld) 0.7 % Normal . [facility] Comment on above: Performed By: #### C BC #### [address] Eosinophils (Bld) [#/Vol] 0.3 10*3/uL Normal 0.0-0.45 [facility] Comment on above: Performed By: #### C BC #### [address] Eosinophils/100 WBC (Bld) 4.4 % Normal . [facility] Comment on above: Performed By: #### C BC #### [address] Erythrocyte distribution width (RBC) [Ratio] 14.7 % Normal 11.9-15.3 [facility] Comment on above: Performed By: #### C BC #### [address] Hematocrit (Bld) [Volume fraction] 42.0 % Normal 34.0-46.4 [facility] Comment on above: Performed By: #### C BC #### [address] Hemoglobin (Bld) [Mass/Vol] 13.7 g/dL Normal 11.8-15.4 [facility] Comment on above: Performed By: #### C BC #### [address] Lymphocytes (Bld) [#/Vol] 1.8 10*3/uL Normal 1.00-4.8 [facility] Comment on above: Performed By: #### C BC #### [address] Lymphocytes/100 WBC (Bld) 22.7 % Normal . [facility] Comment on above: Performed By: #### C BC #### [address] MCH (RBC) [Entitic mass] 28.8 pg Normal 24.7-34.3 [facility] Comment on above: Performed By: #### C BC #### [address] MCV (RBC) [Entitic vol] 88.4 fL Normal 80-100 [facility] Comment on above: Performed By: #### C BC #### [address] Mean Corpuscular HGB Conc 32.6 g/dL Normal 32.0-35.0 [facility] Comment on above: Performed By: #### C BC #### [address] Monocytes (Bld) [#/Vol] 0.5 10*3/uL Normal 0.0-0.8 [facility] Comment on above: Performed By: #### C BC #### [place] [address] [place] Monocytes/100 WBC (Bld) 6.5 % Normal . [facility] Comment on above: Performed By: #### C BC #### [address] Neutrophils (Bld) [#/Vol] 5.1 10*3/uL Normal 1.8-7.7 [facility] Comment on above: Performed By: #### C BC #### [facility] [address] [place] [id number] [facility] Neutrophils/100 WBC (Bld) 65.7 % Normal . [facility] Comment on above: Performed By: #### C BC #### [facility] [address] NRBC% 0.1 /100{WBC} Normal 0-0.5 [facility] Comment on above: Performed By: #### C BC #### [address] Platelet mean volume (Bld) [Entitic vol] 8.5 fL Normal 6.3-10.7 [facility] Comment on above: Performed By: #### C BC #### [address] Platelets (Bld) [#/Vol] 551 10*3/uL High 150-450 [facility] Comment on above: Performed By: #### C BC #### [address] RBC (Bld) [#/Vol] 4.75 10*6/uL Normal 3.60-5.00 [facility] Comment on above: Performed By: #### C BC #### [address] WBC (Bld) [#/Vol] 7.7 10*3/uL Normal 3.8-11.6 [facility] Comment on above: Performed By: #### C BC #### [place] [address] [place] Basophils Auto (Bld) [#/Vol] Ordered By: Rosa Romo on 03-22-2022 Basophils (Bld) [#/Vol] 0.1 10*3/uL 0.0-0.2 [facility] Basophils/100 WBC Auto (Bld) Ordered By: Rosa Romo on 03-22-2022 Basophils/100 WBC (Bld) 0.9 % . [facility] Body fluid albumin measureme nt (mass/volume)Ordered By: Rosa Romo on 03-22-2022 Albumin (Body fld) [Mass/Vol] 4.3 g/dL 3.2-5.5 [facility] Creatinine and Glomerular fi ltration rate.predicted panel (S/P/Bld)Ordered By: Rosa Romo on 03-22-2022 Creatinine [Mass/Vol] 0.79 mg/dL 0.44-1.03 [facility] Eosinophils Auto (Bld) [#/Vo l]Ordered By: Rosa Romo on 03-22-2022 Eosinophils (Bld) [#/Vol] 0.2 10*3/uL 0.0-0.45 [facility] Eosinophils/100 WBC Auto (Bl d)Ordered By: Rosa Romo on 03-22-2022 Eosinophils/100 WBC (Bld) 2.4 % . [facility] Erythrocyte distribution wid th Auto (RBC) [Ratio]Ordered By: Rosa Romo on 03-22-2022 Erythrocyte distribution width (RBC) [Ratio] 14.7 % 11.9-15.3 [facility] Estimated glomerular filtrat ion rate (GFR) non- AmericanOrdered By: Rosa Romo on 03-22-2022 GFR/1.73 sq M.predicted among non-blacks MDRD (S/P/Bld) [Vol rate/Area] > 60 mL/Min [facility] Globulin Calc (S) [Mass/Vol] Ordered By: Rosa Romo on 03-22-2022 Globulin (S) [Mass/Vol] 2.2 g/dL [facility] Hematocrit Auto (Bld) [Volum e fraction]Ordered By: Rosa Romo on 03-22-2022 Hematocrit (Bld) [Volume fraction] 41.9 % 34.0-46.4 [facility] Hemoglobin [Mass/volume] in BloodOrdered By: Rosa Romo on 03-22-2022 Hemoglobin (Bld) [Mass/Vol] 13.6 g/dL 11.8-15.4 [facility] Laboratory - Hematology and Cell countsOrdered By: Rosa Romo on 03-22-2022 Nucleated RBC/100 WBC (Bld) [Ratio] 0.0 % 0-0.5 [facility] Leukocytes [#/volume] in Blo od by Automated countOrdered By: Rosa Romo on 03-22-2022 WBC (Bld) [#/Vol] 8.0 10*3/uL 4.5-11.0 [facility] Lymphocytes Auto (Bld) [#/Vo l]Ordered By: Rosa Romo on 03-22-2022 Lymphocytes (Bld) [#/Vol] 2.0 10*3/uL 1.00-4.8 [facility] Lymphocytes/100 WBC Auto (Bl d)Ordered By: Rosa Romo on 03-22-2022 Lymphocytes/100 WBC (Bld) 24.9 % . [facility] MCH Auto (RBC) [Entitic mass ]Ordered By: Rosa Romo on 03-22-2022 MCH (RBC) [Entitic mass] 29.4 pg 24.7-34.3 [facility] MCHC Auto (RBC) [Mass/Vol]Or dered By: Rosa Romo on 03-22-2022 MCHC (RBC) [Mass/Vol] 32.5 g/dL 32.0-35.0 [facility] MCV Auto (RBC) [Entitic vol] Ordered By: Rosa Romo on 03-22-2022 MCV (RBC) [Entitic vol] 90.4 fL 80-100 [facility] Monocytes Auto (Bld) [#/Vol] Ordered By: Rosa Romo on 03-22-2022 Monocytes (Bld) [#/Vol] 0.4 10*3/uL 0.0-0.8 [facility] Monocytes/100 WBC Auto (Bld) Ordered By: Rosa Romo on 03-22-2022 Monocytes/100 WBC (Bld) 5.2 % . [facility] Neutrophils Auto (Bld) [#/Vo l]Ordered By: Rosa Romo on 03-22-2022 Neutrophils (Bld) [#/Vol] 5.3 10*3/uL 1.8-7.7 [facility] Neutrophils/100 WBC Auto (Bl d)Ordered By: Rosa Romo on 03-22-2022 Neutrophils/100 WBC (Bld) 66.6 % . [facility] No Panel InformationOrdered By: Rosa Romo on 03-22-2022 Estimated GFR () > 60 mL/Min [facility] Comment on above: GFR estimated refere nce range: According to KDOQI guidelines, <60 ml/min/1.73m2 is sufficient to diagnose a patient with chronic kidney disease. Pharmacy Creatinine Clearance (Chem 75.44 [facility] Platelet mean volume Auto (B ld) [Entitic vol]Ordered By: Rosa Romo on 03-22-2022 Platelet mean volume (Bld) [Entitic vol] 8.3 fL 6.3-10.7 [facility] Platelets Auto (Bld) [#/Vol] Ordered By: Rosa Romo on 03-22-2022 Platelets (Bld) [#/Vol] 506 10*3/uL 150-450 [facility] Protein [Mass/volume] in Ser um or PlasmaOrdered By: Rosa Romo on 03-22-2022 Protein [Mass/Vol] 6.5 g/dL 6.1-7.9 [facility] RBC Auto (Bld) [#/Vol]Ordere d By: Rosa Romo on 03-22-2022 RBC (Bld) [#/Vol] 4.63 10*6/uL 3.60-5.00 [facility] Serum or plasma alanine black otransferase measurement without P-5'-P (enzymatic activiOrdered By: Rosa Romo on 03-22-2022 ALT No additional P-5'-P [Catalytic activity/Vol] 17 U/L 10-60 [facility] Serum or plasma albumin/glob ulin mass ratioOrdered By: Rosa Romo on 03-22-2022 Albumin/Globulin [Mass ratio] 2.0 {ratio} [facility] Serum or plasma alkaline laurie sphatase measurement (enzymatic activity/volume)Ordered By: Rosa Romo on 03-22-2022 ALP [Catalytic activity/Vol] 56 U/L 32-92 [facility] Serum or plasma anion gap de terminationOrdered By: Rosa Romo on 03-22-2022 Anion gap [Moles/Vol] 11.6 mmol/L 6.0-15.0 [facility] Serum or plasma aspartate am inotransferase measurement (enzymatic activity/volume)Ordered By: Rosa Romo on 03-22-2022 AST [Catalytic activity/Vol] 22 U/L 10-42 [facility] Serum or plasma calcium los urement (mass/volume)Ordered By: Rosa Romo on 03-22-2022 Calcium [Mass/Vol] 9.7 mg/dL 8.2-10.2 [facility] Serum or plasma chloride theresa surement (moles/volume)Ordered By: Rosa Romo on 03-22-2022 Chloride [Moles/Vol] 100 mmol/L 95-114 [facility] Serum or plasma glucose los urement (mass/volume)Ordered By: Rosa Romo on 03-22-2022 Glucose [Mass/Vol] 123 mg/dL 70-100 [facility] Comment on above: ADA recommended refe rence rangeRandom Glucose Reference Range is dependent on time and content of last meal. Glucose of more than 200 mg/dL in a nonstressed, ambulatory subject supports the diagnosis of Diabetes Mellitus. Serum or plasma potassium me asurement (moles/volume)Ordered By: Rosa Romo on 03-22-2022 Potassium [Moles/Vol] 4.4 mmol/L 3.5-5.1 [facility] Serum or plasma sodium measu rement (moles/volume)Ordered By: Rosa Romo on 03-22-2022 Sodium [Moles/Vol] 137 mmol/L 136-146 [facility] Serum or plasma total biliru bin measurement (mass/volume)Ordered By: Rosa Romo on 03-22-2022 Bilirubin [Mass/Vol] 1.8 mg/dL 0.3-1.2 [facility] Comment on above: Samples from patient s who have taken Naproxen have shown spurious elevation in Total Bilirubin levels. A metabolite of Naproxen, O-desmethylnaproxen, has been shown to interfere with the Sean method for measuring Total Bilirubin. Serum or plasma total carbon dioxide measurement (moles/volume)Ordered By: Rosa Romo on 03-22-2022 CO2 [Moles/Vol] 29.8 mmol/L 22.0-30.0 [facility] Serum or plasma urea nitroge n measurement (mass/volume)Ordered By: Rosa Romo on 03-22-2022 Urea nitrogen [Mass/Vol] 12 mg/dL 9-23 [facility] Basophils Auto (Bld) [#/Vol] Ordered By: Rosa Romo on 12-20-2021 Basophils (Bld) [#/Vol] 0.0 10*3/uL 0.0-0.2 [facility] Basophils/100 WBC Auto (Bld) Ordered By: Rosa Romo on 12-20-2021 Basophils/100 WBC (Bld) 0.7 % . [facility] Blood hemoglobin measurement (mass/volume)Ordered By: Rosa Romo on 12-20-2021 Hemoglobin (Bld) [Mass/Vol] 13.6 g/dL 11.8-15.4 [facility] Blood leukocytes automated c ount (number/volume)Ordered By: Rosa Romo on 12-20-2021 WBC (Bld) [#/Vol] 6.3 10*3/uL 4.5-11.0 [facility] Body fluid albumin measureme nt (mass/volume)Ordered By: Rosa Romo on 12-20-2021 Albumin (Body fld) [Mass/Vol] 4.7 g/dL 3.2-5.5 [facility] [address] biopsyOrdered By: Rosa Galindo se on 12-20-2021 Transferrin [Mass/Vol] 258 mg/dL 180-380 [facility] Cholesterol [Mass/volume] in Serum or PlasmaOrdered By: Zeus Lamas on 12-20-2021 Cholesterol [Mass/Vol] 175 mg/dL 140-200 [facility] Comment on above: Chol less than 200 m g/dl low risk Chol 201-239 mg/dl borderline risk Chol 240 mg/dl and greater high risk Cholesterol in LDL Calc [Mas s/Vol]Ordered By: Zeus Lamas on 12-20-2021 Cholesterol in LDL [Mass/Vol] 119 mg/dL 0-100 [facility] Comment on above: LDL ATP III CLASSIFI CATION LDL less than 100 mg/dL Optimal LDL 100-129 mg/dL Near or above optimal LDL 130-159 mg/dL Borderline high LDL 160-189 mg/dL High LDL greater than 189 mg/dL Very high Cholesterol in VLDL Calc [Ma ss/Vol]Ordered By: Zeus Lamas on 12-20-2021 Cholesterol in VLDL [Mass/Vol] 11 mg/dL [facility] Creatinine and Glomerular fi ltration rate.predicted panel (S/P/Bld)Ordered By: Rosa Romo on 12-20-2021 Creatinine [Mass/Vol] 0.78 mg/dL 0.44-1.03 [facility] Eosinophils Auto (Bld) [#/Vo l]Ordered By: Rosa Romo on 12-20-2021 Eosinophils (Bld) [#/Vol] 0.2 10*3/uL 0.0-0.45 [facility] Eosinophils/100 WBC Auto (Bl d)Ordered By: Rosa Romo on 12-20-2021 Eosinophils/100 WBC (Bld) 2.9 % . [facility] Erythrocyte distribution wid th Auto (RBC) [Ratio]Ordered By: Rosa Romo on 12-20-2021 Erythrocyte distribution width (RBC) [Ratio] 15.6 % 11.9-15.3 [facility] Estimated glomerular filtrat ion rate (GFR) non- AmericanOrdered By: Rosa Romo on 12-20-2021 GFR/1.73 sq M.predicted among non-blacks MDRD (S/P/Bld) [Vol rate/Area] > 60 mL/Min [facility] Ferritin [Mass/volume] in Se rum or PlasmaOrdered By: Rosa Romo on 12-20-2021 Ferritin [Mass/Vol] 278.9 ng/mL 11-306.8 [facility] Globulin Calc (S) [Mass/Vol] Ordered By: Rosa Romo on 12-20-2021 Globulin (S) [Mass/Vol] 2.2 g/dL [facility] Hematocrit Auto (Bld) [Volum e fraction]Ordered By: Rosa Romo on 12-20-2021 Hematocrit (Bld) [Volume fraction] 41.2 % 34.0-46.4 [facility] Iron [Mass/volume] in Serum or PlasmaOrdered By: Rosa Romo on 12-20-2021 Iron [Mass/Vol] 90 ug/dL 40-150 [facility] Iron binding capacity [Mass/ volume] in Serum or PlasmaOrdered By: Rosa Romo on 12-20-2021 Iron binding capacity [Mass/Vol] 361 ug/dL 255-450 [facility] Iron saturation [Mass Fracti on] in Serum or PlasmaOrdered By: Rosa Romo on 12-20-2021 Iron saturation [Mass fraction] 24.0 % 20-50 [facility] Laboratory - Hematology and Cell countsOrdered By: Rosa Romo on 12-20-2021 Nucleated RBC/100 WBC (Bld) [Ratio] 0.0 % 0-0.5 [facility] Lymphocytes Auto (Bld) [#/Vo l]Ordered By: Rosa Romo on 12-20-2021 Lymphocytes (Bld) [#/Vol] 1.7 10*3/uL 1.00-4.8 [facility] Lymphocytes/100 WBC Auto (Bl d)Ordered By: Rosa Romo on 12-20-2021 Lymphocytes/100 WBC (Bld) 26.9 % . [facility] MCH Auto (RBC) [Entitic mass ]Ordered By: Rosa Romo on 12-20-2021 MCH (RBC) [Entitic mass] 29.8 pg 24.7-34.3 [facility] MCHC Auto (RBC) [Mass/Vol]Or dered By: Rosa Romo on 12-20-2021 MCHC (RBC) [Mass/Vol] 33.1 g/dL 32.0-35.0 [facility] MCV Auto (RBC) [Entitic vol] Ordered By: Rosa Romo on 12-20-2021 MCV (RBC) [Entitic vol] 90.0 fL 80-100 [facility] Monocytes Auto (Bld) [#/Vol] Ordered By: Rosa Romo on 12-20-2021 Monocytes (Bld) [#/Vol] 0.4 10*3/uL 0.0-0.8 [facility] Monocytes/100 WBC Auto (Bld) Ordered By: Rosa Romo on 12-20-2021 Monocytes/100 WBC (Bld) 6.3 % . [facility] Neutrophils Auto (Bld) [#/Vo l]Ordered By: Rosa Romo on 12-20-2021 Neutrophils (Bld) [#/Vol] 4.0 10*3/uL 1.8-7.7 [facility] Neutrophils/100 WBC Auto (Bl d)Ordered By: Rosa Romo on 12-20-2021 Neutrophils/100 WBC (Bld) 63.2 % . [facility] No Panel InformationOrdered By: Rosa Romo on 12-20-2021 Estimated GFR () > 60 mL/Min [facility] Comment on above: GFR estimated refere nce range: According to KDOQI guidelines, <60 ml/min/1.73m2 is sufficient to diagnose a patient with chronic kidney disease. Pharmacy Creatinine Clearance (Chem 76.40 [facility] Platelet mean volume Auto (B ld) [Entitic vol]Ordered By: Rosa Romo on 12-20-2021 Platelet mean volume (Bld) [Entitic vol] 8.5 fL 6.3-10.7 [facility] Platelets Auto (Bld) [#/Vol] Ordered By: Rosa Romo on 12-20-2021 Platelets (Bld) [#/Vol] 527 10*3/uL 150-450 [facility] Protein [Mass/volume] in Ser um or PlasmaOrdered By: Rosa Romo on 12-20-2021 Protein [Mass/Vol] 6.9 g/dL 6.1-7.9 [facility] RBC Auto (Bld) [#/Vol]Ordere d By: Rosa Romo on 12-20-2021 RBC (Bld) [#/Vol] 4.58 10*6/uL 3.60-5.00 [facility] Serum or plasma alanine black otransferase measurement without P-5'-P (enzymatic activiOrdered By: Rosa Romo on 12-20-2021 ALT No additional P-5'-P [Catalytic activity/Vol] 22 U/L 10-60 [facility] Serum or plasma albumin/glob ulin mass ratioOrdered By: Rosa Romo on 12-20-2021 Albumin/Globulin [Mass ratio] 2.1 {ratio} [facility] Serum or plasma alkaline laurie sphatase measurement (enzymatic activity/volume)Ordered By: Rosa Romo on 12-20-2021 ALP [Catalytic activity/Vol] 52 U/L 32-92 [facility] Serum or plasma aspartate am inotransferase measurement (enzymatic activity/volume)Ordered By: Rosa Romo on 12-20-2021 AST [Catalytic activity/Vol] 24 U/L 10-42 [facility] Serum or plasma calcium los urement (mass/volume)Ordered By: Rosa Romo on 12-20-2021 Calcium [Mass/Vol] 9.9 mg/dL 8.2-10.2 [facility] Serum or plasma chloride theresa surement (moles/volume)Ordered By: Rosa Romo on 12-20-2021 Chloride [Moles/Vol] 100 mmol/L 95-114 [facility] Serum or plasma glucose los urement (mass/volume)Ordered By: Rosa Romo on 12-20-2021 Glucose [Mass/Vol] 89 mg/dL 70-100 [facility] Comment on above: ADA recommended refe rence range Random Glucose Reference Range is dependent on time and content of last meal. Glucose of more than 200 mg/dL in a nonstressed, ambulatory subject supports the diagnosis of Diabetes Mellitus. Serum or plasma high density lipoprotein (HDL) cholesterol measurementOrdered By: Zeus Lamas on 12-20-2021 Cholesterol in HDL [Mass/Vol] 45 mg/dL 35-85 [facility] Comment on above: HDL CHOL ATP-III CLA SSIFICATION Cardiovascular Risk HDL > or equal to 60 mg/dL LOW HDL < 40 mg/dL HIGH Serum or plasma potassium me asurement (moles/volume)Ordered By: Rosa Romo on 12-20-2021 Potassium [Moles/Vol] 4.0 mmol/L 3.5-5.1 [facility] Serum or plasma sodium measu rement (moles/volume)Ordered By: Rosa Romo on 12-20-2021 Sodium [Moles/Vol] 138 mmol/L 136-146 [facility] Serum or plasma total biliru bin measurement (mass/volume)Ordered By: Rosa Romo on 12-20-2021 Bilirubin [Mass/Vol] 1.4 mg/dL 0.3-1.2 [facility] Comment on above: Samples from patient s who have taken Naproxen have shown spurious elevation in Total Bilirubin levels. A metabolite of Naproxen, O-desmethylnaproxen, has been shown to interfere with the Jendrassik-Grof method for measuring Total Bilirubin. Serum or plasma total carbon dioxide measurement (moles/volume)Ordered By: Rosa Romo on 12-20-2021 CO2 [Moles/Vol] 30.2 mmol/L 22.0-30.0 [facility] Serum or plasma total choles terol/high density lipoprotein (HDL) cholesterol mass ratOrdered By: Zeus Lamas on 12-20-2021 Cholesterol.total/Chol esterol in HDL [Mass ratio] 3.9 {ratio} <5.0 [facility] Serum or plasma urea nitroge n measurement (mass/volume)Ordered By: Rosa Romo on 12-20-2021 Urea nitrogen [Mass/Vol] 9 mg/dL 9-23 [facility] Triglyceride [Mass/volume] i n Serum or PlasmaOrdered By: Zeus Lamas on 12-20-2021 Triglyceride [Mass/Vol] 57 mg/dL 35-149 [facility] Comment on above: TRIG ATP III CLASSIF ICATION TRIG less than 150 mg/dL Normal TRIG 150-199 mg/dL Borderline high TRIG 200-500 mg/dL High TRIG greater than 500 mg/dL Very high Standard traceable to the Center for Disease Conrtrol and Prevention (CDC) test method. Complete Blood Counton 05-16 Erythrocyte distribution width (RBC) [Ratio] 14.4 % Normal 11.0-15.0 [facility] Outbound Sales Advisor Comment on above: Performed By: #### C BC #### [facility] [address] [place], [place] [id number] Hematocrit (Bld) [Volume fraction] 44.4 % Normal 35.0-47.0 [facility] Specialist Comment on above: Performed By: #### C BC #### [facility] [address] [place], [place] [id number] Hemoglobin (Bld) [Mass/Vol] 14.1 g/dL Normal 11.6-15.5 [facility] Outbound Sales Advisor Comment on above: Performed By: #### C BC #### [facility] [address] [place], [place] [id number] MCH (RBC) [Entitic mass] 28.3 pg Normal 27.0-33.0 [facility] Specialist Comment on above: Performed By: #### C BC #### [facility] [address] [place], [place] [id number] MCHC (RBC) [Mass/Vol] 31.8 g/dL Low 32.0-36.0 [facility] Comment on above: Performed By: #### C BC #### [facility] [address] [place], [place] [id number] MCV (RBC) [Entitic vol] 89 fL Normal 80-100 [facility] Comment on above: Performed By: #### C BC #### [facility] [address] [place], [place] [id number] Platelet mean volume (Bld) [Entitic vol] 10.40 fL Normal 7.50-12.50 [facility] Specialist Comment on above: Performed By: #### C BC #### [facility] [address] [place], [place] [id number] Platelets (Bld) [#/Vol] 555 10*3/uL High 140-400 [facility] Comment on above: Performed By: #### C BC #### [facility] [address] [place], [place] [id number] RBC (Bld) [#/Vol] 4.99 10*6/uL Normal 3.90-5.20 [facility] Comment on above: Performed By: #### C BC #### [facility] [address] [place], [place] [id number] RDW-SD 46.8 fL Normal 37.0-50.0 [facility] Comment on above: Performed By: #### C BC #### [facility] [address] [place], [place] [id number] WBC (Bld) [#/Vol] 6.7 10*3/uL Normal 3.8-11.0 [facility] Comment on above: Performed By: #### C BC #### [facility] [address] [place], [place] [id number] CNOVon 03-17-2021 CNOV Office Visit (CARDMN ) GLORIA ALLEN ([id number]) 1960 F Date Time Provider Department 03/17/21 2:45 PM NIKITA REYES During your visit today, we recorded the following information about you: Pulse Blood pressure Weight Height 61/minute 152/84 77.1 kg 1.727 m Nikita Reyes MD 03/17/2021 5:31 PM Signed REFERRING/OTHER PHYSICIANS: Zeus Lamas DO (PCP/IM) CHIEF COMPLAINT: Gloria Allen is a 60 year old female referred for palpitations. HISTORY OF PRESENT ILLNESS: Gloria Allen presents to establish care with cardiology due to complaints of palpitations. She was recently diagnosed with essential thrombocytosis. She states she was told she had a heart murmur 30 years ago when she had noted palpitations, and she was advised to have serial echoes every 5 years. She had 2 echoes several years ago and was told there was no regurgitation. She began noticing increasing palpitations over the past year. She notices them when she falls asleep, and the palpitations wake her up. She feels runs of very rapid beats which last under 10-15 seconds. She bears down or coughs and it always successfully terminates the rhythm. These episodes occur about 3 times a week, without any concurrent symptoms. She does not note any triggers or precipitating factors. She never had any sustained rhythm nor had to seek emergency care. She wore a [employer] event monitor for 12 days in January which showed average HR 66 bpm, low HR 50 bpm, high HR 120 bpm, no AF, <1% PAC burden, <1% PVC burden. Diary entries of palpitations correlated with SR, SB, and first degree block. She has had no chest pain, shortness of breath, orthopnea, PND, edema, syncope, nearsyncope, or lightheadedness. PROBLEM LIST AND PAST HISTORY: Palpitations Palpitations for 30 yrs, increased at night over 2020, notices when falling asleep and wake her up Has runs of very rapid beats which last under 10-15 secs, terminating with bearing down or coughing Occur 3x/week Wore [employer] event monitor for 12 days in 01/2021. Palpitations correlated with SR, SB, 1AVB. Epigastric pain Essential thrombocytosis Asthma (when exposed to animals/allergens) Basal cell cancer s/p excision bilateral arms S/p C sections x 3 S/p exploratory lap in her 40's, removal scar tissue ALLERGIES/SENSITIVITIES: None. FAMILY HISTORY: Father 93 aortic stenosis, CML. Mother living 93 dementia. Sister living 72 Melanoma. Sister living 69 RA. 2 brothers , HLD, A AND W. PGF 50s with a stroke. PGM 102. MGM late 80s edema. MGF 90s. No sudden deaths, atrial fibrillation. 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 , 3 children, 1 grandchild. Lives in [place], [place] Habits: Tobacco: none. Alcohol: 1 drink 4-5 days per week. Caffeine: 2-3 C coffee, occasional tea in the winter, One diet coke monthly. Herbals/Supplements: turmeric, vitamins C and D, magnesium. Exercise: [employer] 3-4 times weekly, walks, floor exercises, light weights. REVIEW OF SYSTEMS: ENDO: No hypertension, diabetes, thyroid disease, hyperlipidemia. SKIN: no rashes. HEENT: no headaches, sinusitis, changes in vision or hearing. RESP: no cough, COPD, or sleep apnea; see HPI. CVS: see HPI. No history of claudication, peripheral vascular disease, deep venous thrombosis, pulmonary embolism, cardiac arrest. GI: no nausea, vomiting, diarrhea, constipation, melena, hematochezia. : no abnormal bleeding, dysuria. MS: No arthritis. NEURO: No CVA, TIA, numbness, weakness, paresthesias. + basal cell cancer arms. General, constitutional: Weight loss or gain- No, Fever or chills-No, Weakness-No, Trouble sleeping-+. Head, Eyes, Ears, Mouth: Headache, head injury-No, Glasses or contact lenses-+, Pain-No, Impaired vision-+, Decreased hearing-No, Ringing in ears-No, Nose bleeds-No, Dental difficulties-No, Bleeding gums-No, Dentures-No. Neck: Swelling-No, Pain-No, Stiffness-No. Respiratory: Cough-No, Spitting up blood-No, Shortness of breath-No, Wheezing or asthma-No. Musculoskeletal: Muscle or joint pain or stiffness-+, Joint swelling-No. Gastrointestinal: Difficulty swallowing-No, Heartburn-+, Change in bowel habits-No, Blood in stool, Dark black stools-No. Neurological/Psychiatric: Weakness, paralysis-No, Numbness-No, Tingling-+, Tremor-No, Nervousness or anxiety-No, Depressed mood-No, Memory loss-No. Skin: Rash-No, Itching-No. Hematological: Easy bruising-No, Easy bleeding-No. Endocrine: Heat or cold intolerance-No, Excessive sweating-No, Frequent urination-No, Frequent thirst-No. MEDICATIONS: Current Outpatient Medications Medication Sig - aspirin, enteric coated (ASPIRIN, ENTERIC COATED) 81 mg EC tablet Take 81 mg by mouth once daily. - cholecalciferol, vitamin D3, (VITAMIN D3 ORAL) Take 1,000 Units by mouth once daily. - ascorbic acid (RHIANNON (more content not included)... [facility] Telephone (CARDMN) GLORIA ALLEN ([id number]) 1960 F Date Time Provider Department 03/17/21 NIKITA REYES During your visit today, we recorded the following information about you: Philly Nair 03/17/2021 4:06 PM Signed Outside medical records scanned into [employer] drive. Disk uploaded to [employer]: Echocardiogram 01/27/2021. Allergies As of Date: 03/17/2021 (Not on File) Date Reviewed: Never Reviewed Reason for Visit: Received Outside Medical Records [[id number]] Problem List As Of Date: 03/17/2021 (None) Encounter Status:Closed by PHILLY NAIR on 03/17/21 [facility] Dorys 12-31-2020 CNCO Letter Text Normal [facility] Neal 12-30-2020 CNPN Telephone (REFPHY) GLORIA ALLEN ([id number]) 1960 F Date Time Provider Department 12/30/20 NO PCP (HISTORICAL) REFPHY During your visit today, we recorded the following information about you: Kyle Crowell 12/30/2020 9:12 AM Signed Patient: Gloria Allen Date of : 1960 Patient phone number: [phone] Referring Provider for the encounter: Zeus Lamas Requesting Provider: Nikita Reyes Reason for requesting visit (RFV/signs and symptoms/diagnosis): palpitations Person calling: via RP fax Return call to: self Medical Records/Insurance Card scanned into [employer]: No Comments: helder Boles 12/31/2020 10:34 AM Signed TI RP - Message left for patient to call back to schedule an appointment in EP? for Palpitations, requesting Dr. Reyes per RP referrals. Allergies As of Date: 12/30/2020 (Not on File) Date Reviewed: Never Reviewed Reason for Visit: External Referrals/resources [909] Problem List As Of Date: 12/30/2020 (None) Encounter Status:Closed by KYLE MUNOZ on 12/30/20 [facility] Neal 12-23-2020 CNPN Telephone (REFPHY) GLORIA ALLEN ([id number]) 1960 F Date Time Provider Department 12/23/20 NO ONE (HISTORICAL) REFPHY During your visit today, we recorded the following information about you: Alexandria Hernandez 12/23/2020 7:19 AM Signed Patient: Gloria Allen Date of : 1960 Patient phone number: [phone] Referring Provider for the encounter: Dr Zeus Lamas Requesting Provider: Dr Wesley Mallory - Cardiology Reason for requesting visit (RFV/signs and symptoms/diagnosis): Tachycardia, palipatations Person calling: caregiver: ASHLEY Return call to: self Medical Records/Insurance Card scanned into [employer]: Yes Comments: Additional records saved to [employer] Cheyenne Boles 12/23/2020 9:31 AM Signed [facility] RP - Message left for patient to call back to schedule an appointment in EP for Tachycardia, palpitations, per Dr. Mallory's office, she does not see patient's for DX. Allergies As of Date: 12/23/2020 (Not on File) Date Reviewed: Never Reviewed Reason for Visit: External Referrals/resources [909] Problem List As Of Date: 12/23/2020 (None) Encounter Status:Closed by ALEXANDRIA TERRY on 12/23/20 Normal [facility] Albumin [Mass/volume] in Ser um or PlasmaOrdered By: Rosa Romo on 12-16-2020 Albumin [Mass/Vol] 3.9 g/dL 2.9-4.4 [facility] Immunoglobulin light chains. kappa.free [Mass/volume] in SerumOrdered By: Rosa Romo on 12-16-2020 Immunoglobulin light chains.kappa.free (S) [Mass/Vol] 12.3 mg/L 3.3-19.4 [facility] Immunoglobulin light chains. kappa.free/Immunoglobulin light chains.lambda.free [MassOrdered By: Rosa Romo on 12-16-2020 Immunoglobulin light chains.kappa.free/Immu noglobulin light chains.lambda.free (S) [Mass ratio] 0.83 0.26-1.65 [facility] Comment on above: Performed at: [address] [id number] Sensitized Paper Tester: Osiel Combs PhD, Phone: [phone] Performed at: [address] [id number] Director: Osiel Combs PhD, Phone: [phone] Immunoglobulin light chains. lambda.free [Mass/volume] in Serum or PlasmaOrdered By: Rosa Romo on 12-16-2020 Immunoglobulin light chains.lambda.free [Mass/Vol] 14.8 mg/L 5.7-26.3 [facility] No Panel InformationOrdered By: Rosa Romo on 12-16-2020 25-Hydroxy Vitamin D Total 51.1 ng/mL 30-100 [facility] Comment on above: VITAMIN D STATUS 25( [place])VITAMIN D RANGE (ng/mL) Deficient <20 Insufficient 20 to <30 Sufficient 30 to 100 Reference: Redd Villa, Maxi HANSEN, et al. Evaluation,treatment, and prevention of vitamin D deficiency; an Endocrine Society clinical practice guideline. JCEM. 2010; 96(7):1911-30. VITAMIN D STATUS 25( [place])VITAMIN D RANGE (ng/mL) Deficient <20 Insufficient 20 to <30Sufficient 30 to 100Reference: Redd Villa, Maxi HANSEN, et al. Evaluation,treatment, and prevention of vitamin D deficiency; an Endocrine Society clinical practice guideline. JCEM. 2010; 96(7):1911-30. Protein Electrophoresis M-Sonny Not observed g/dL Not Observed [facility] Protein Electrophoresis Note See comment . [facility] Comment on above: Protein electrophore sis scan will follow via computer, mail, or director volunteer services delivery. Performed at: [address] [id number] Sensitized Paper Tester: Osiel Combs PhD, Phone: [phone] Protein electrophore sis scan will follow via computer,mail, or director volunteer services delivery.Performed at: [address] [id number] Director: Osiel Combs PhD, Phone: [phone] Protein [Mass/volume] in Ser um or PlasmaOrdered By: Rosa Romo on 12-16-2020 Protein [Mass/Vol] 7.0 g/dL 6.0-8.5 [facility] Serum globulin measurement ( mass/volume)Ordered By: Rosa Romo on 12-16-2020 Globulin (S) [Mass/Vol] 3.1 g/dL 2.2-3.9 [facility] Serum or plasma albumin/glob ulin mass ratioOrdered By: Rosa Romo on 12-16-2020 Albumin/Globulin [Mass ratio] 1.3 {ratio} 0.7-1.7 [facility] Serum or plasma alpha 1 glob ulin measurement by electrophoresis (mass/volume)Ordered By: Rosa Romo on 12-16-2020 Alpha 1 globulin Elph [Mass/Vol] 0.2 g/dL 0.0-0.4 [facility] Serum or plasma alpha 2 glob ulin measurement by electrophoresis (mass/volume)Ordered By: Rosa Romo on 12-16-2020 Alpha 2 globulin Elph [Mass/Vol] 0.7 g/dL 0.4-1.0 [facility] Serum or plasma beta globuli n measurement by electrophoresis (mass/volume)Ordered By: Rosa Romo on 12-16-2020 Beta globulin Elph [Mass/Vol] 1.1 g/dL 0.7-1.3 [facility] Serum or plasma calcitriol m easurement (mass/volume)Ordered By: Rosa Romo on 12-16-2020 1,25-dihydroxyvitamin D3 [Mass/Vol] 60.1 pg/mL 19.9-79.3 [facility] Comment on above: Performed at: [employer] [address] [id number] Sensitized Paper Tester: Mitchell Glynn MD, Phone: [phone] Performed at: [facility] [address] [id number] Director: Mitchell Glynn MD, Phone: [phone] Serum or plasma gamma globul in measurement by electrophoresis (mass/volume)Ordered By: Rosa Romo on 12-16-2020 Gamma globulin Elph [Mass/Vol] 1.0 g/dL 0.4-1.8 [facility] Serum or plasma intact parat hyroid hormone measurement (mass/volume)Ordered By: Rosa Romo on 12-16-2020 Parathyrin.intact [Mass/Vol] 44.6 pg/mL 12-88 [facility] TSH DL <= 0.005 mIU/L QnOrde red By: Rosa Romo on 12-16-2020 TSH Qn 1.61 m[IU]/L 0.45-5.33 [facility] Thyroxine (T4) free [Mass/vo lume] in Serum or PlasmaOrdered By: Rosa Romo on 12-16-2020 Free T4 [Mass/Vol] 0.73 ng/dL 0.61-1.12 [facility] Activated partial thrombopla stin time (aPTT) in platelet poor plasma by coagulation aon 06-15-2020 aPTT Coag (PPP) [Time] 28.4 s 22.9-30.2 [facility] - Coagulationon 0 06-15-2020 PT Coag (PPP) [Time] 11.2 s 9.1-12.0 [facility] No Panel Informationon 06-15 Coagulation Factor VIII Activity 116 % 56-140 [facility] Platelet poor plasma interna tional normalized ratio (INR) by coagulation assay (relaton 06-15-2020 INR Coag (PPP) [Relative time] 1.1 {INR} 0.9-1.2 [facility] Comment on above: INR Therapeutic Rang e A) Pre- and Peroperative OAT started two weeks before surgery. NOT HIP SURGERY: 1.5 - 2.5 HIP SURGERY: 2 - 3 B) Primary and secondary prevention of venous THROMBOSIS: 2 - 3 C) Active venous thrombosis, pulmonary embolism and prevention of recurrent venous thrombosis: 2 - 3 D) Prevention of arterial thromboembolism including patients with mechanical heart valves: 3 - 4.5 Reference interval i s for non-anticoagulated patients. Suggested INR therapeutic range for Vitamin K antagonist therapy: Standard Dose (moderate intensity therapeutic range): 2.0 - 3.0 Higher intensity therapeutic range 2.5 - 3.5 INR Therapeutic Rang e A) Pre- and Peroperative OAT started two weeks before surgery. NOT HIP SURGERY: 1.5 - 2.5 HIP SURGERY: 2 - 3B) Primary and secondary prevention of venous THROMBOSIS: 2 - 3C) Active venous thrombosis, pulmonary embolismand prevention of recurrent venous thrombosis: 2 - 3D) Prevention of arterial thromboembolismincluding patients with mechanical heart valves: 3 - 4.5 Reference interval i s for non-anticoagulated patients.Suggested INR therapeutic range for Vitamin Kantagonist therapy: Standard Dose (moderate intensity therapeutic range): 2.0 - 3.0 Higher intensity therapeutic range 2.5 - 3.5 Von Willebrand factor (vWF) multimers measurement in platelet poor plasma by immunoblon 06-15-2020 vWf multimers IB Nom (PPP) See comment . [facility] Comment on above: VWF multimer analysi s demonstrates a normal pattern and distribution of bands. This is the pattern of multimers that occurs in normal individuals as well as in those with type 1 von Willebrand disease (VWD), type 2M and type 2N VWD. Some acquired von Willebrand syndrome cases may yield a normal pattern as well. No additional results available for further interpretation. This test was developed and its performance characteristics determined by [employer]. It has not been cleared or approved by the Food and Drug Administration. Performed at: [employer] [address] [id number] Sensitized Paper Tester: Sivakumar Mejia MD, Phone: [phone] VWF multimer analysi s demonstrates a normal pattern anddistribution of bands. This is the pattern of multimersthat occurs in normal individuals as well as in those withtype 1 von Willebrand disease (VWD), type 2M and type 2NVWD. Some acquired von Willebrand syndrome cases may yielda normal pattern as well.No additional results available for further interpretation.This test was developed and its performance characteristicsdetermined by [facility]. It has not been cleared or approvedby the Food and Drug Administration.Performed at: [facility] [address] [id number] Director: Sivakumar Mejia MD, Phone: [phone] Von Willebrand factor activi ty measurementon 06-15-2020 vWf ristocetin cofactor act actual/normal Platelet aggregation (PPP) [Relative time] 62 % 50-200 [facility] Comment on above: Performed at: [facility] [id number] Sensitized Paper Tester: Mitchell Glynn MD, Phone: [phone] Performed at: [facility] [address] [id number] Director: Mitchell Glynn MD, Phone: [phone] Von Willebrand factor antige n measurementon 06-15-2020 vWf Ag Qn (PPP) 86 % 50-200 [facility] Comment on above: This test was develo ped and its performance characteristics determined by [facility]. It has not been cleared or approved by the Food and Drug Administration. This test was develo ped and its performance characteristicsdetermined by [facility]. It has not been cleared orapproved by the Food and Drug Administration. No Panel Informationon 06-04 BCR/abl See comment [facility] Comment on above: See report. Scanned copy available in EMR. Calreticulin Mutation See comment [facility] Comment on above: See report. Scanned copy available in EMR.See report. Scanned copy available in EMR. --- 06/11/20799 --- Calr previously reported as: See report. Scanned copy available in EMR. See report. Scanned copy available in EMR.See report. Scanned copy available in EMR. --- 06/11/20799 ---Calr previously reported as: See report. Scanned copy available in EMR. JAK2 V617F See comment [facility] Comment on above: See report. Scanned copy available in EMR.See report. Scanned copy available in EMR. --- 06/11/20799 --- VILLA 2 previously reported as: See report. Scanned copy available in EMR. See report. Scanned copy available in EMR.See report. Scanned copy available in EMR. --- 06/11/20799 ---VILLA 2 previously reported as: See report. Scanned copy available in EMR. MPL Mutation Analysis See comment [facility] Comment on above: See report. Scanned copy available in EMR. C reactive protein [Mass/vol ume] in Serum or Plasmaon 05-31-2020 CRP [Mass/Vol] < 0.5 mg/dL 0.0-1.0 [facility] - Hematology and Cell countson 05-31-2020 WBC (Bld) [#/Vol] 8.9 10*3/uL 4.5-11.0 [facility] Serum homogeneous pattern an tinuclear antibody (STEPHANIE) titeron 05-31-2020 Homogenous nuclear Ab pattern (S) [Titer] N/A [facility] Serum nuclear antibody titer on 05-31-2020 Nuclear Ab (S) [Titer] Negative . [facility] Comment on above: Negative <1:80 Borderline 1:80 Positive >1:80 Performed at: [facility] [address] [place] [id number] Sensitized Paper Tester: Osiel Combs PhD, Phone: [phone] Negative <1:80 Borde rline 1:80 Positive >1:80Performed at: [facility] [address] [id number] Director: Osiel Combs PhD, Phone: [phone] Serum or plasma rheumatoid f actor measurement (units/volume)on 05-31-2020 Rheumatoid factor Qn [IU]/mL 0.0-13.9 [facility] Comment on above: Performed at: [facility] [address] [id number] Sensitized Paper Tester: Osiel Combs PhD, Phone: [phone] Performed at: [facility] [address] [id number] Director: Osiel Combs PhD, Phone: [phone] OVER READ - NCon 12-20-2017 OVER READ - NC DATE OF EXAM: Dec 20 2017 9:31AMCLINICAL HISTORY/ Name: TIFFANYTRENTTUDY:OVER READ - NC; 12/20/2017 9:31 amINDICATION:score.COMPARIS ON:None. G CLINICIAN:ZEUS VIERA:The following is to serve as an over-read for a coronary artery calcium score, to evaluate the extra arterial structures.Contiguous unenhanced CT sections are performed from the level of the main pulmonary artery to the upper abdomen.FINDINGS:The visualized portions of both lungs are clear.There is a too small to characterize round hypodensity at the dome of the right hepatic lobe which measures 8 mm in diameter. The appearance is suspicious for small cysts.There is no sign of pathologic lymph node enlargement. There is no pericardial or pleural effusion.Images through the upper abdomen are unremarkable.The visualized osseous and soft tissue structures of the chest wall are intact.CONCLUSION: IMPRESSION:Nonspecific 8 mm hypodensity at the dome of the right hepatic lobe is suspicious for small cysts.The extra arterial structures are otherwise unremarkable. Normal [facility] Vital Signs Date Time Vital Sign Value Performing Clinician [place] mathew 03-21-2023 11:11-0400 Body temperature 97.8 [degF] DO Zeus Vaschak Work Phone: [facility] 03-21-2023 11:[id number] Body weight 74.38 kg DO Zeus Vaschak Work Phone: [facility] 03-21-2023 11:11-0400 Diastolic blood pressure 77 mm[Hg] DO Zeus Vaschak Work Phone: [facility] 03-21-2023 11:11-0400 Heart rate 64 /min DO Zeus Vaschak Work Phone: [facility] 03-21-2023 11:11-0400 Respiratory rate 16 /min DO Zeus Vaschak Work Phone: [facility] 03-21-2023 11:11-0400 SaO2% (BldA) [Mass fraction] 98 % DO Zeus Vaschak Work Phone: [facility] 03-21-2023 11:11-0400 Systolic blood pressure 132 mm[Hg] DO Zeus Vaschak Work Phone: [facility] 03-24-2022 11:17-0400 Body temperature 97.8 [degF] DO Zeus Vaschak Work Phone: [facility] 03-24-2022 11:170400 Body weight 70.76 kg DO Zeus Vaschak Work Phone: [facility] 03-24-2022 11:17-0400 Diastolic blood pressure 81 mm[Hg] DO Zeus Vaschak Work Phone: [facility] 03-24-2022 11:17-0400 Heart rate 58 /min DO Zeus Vaschak Work Phone: [facility] 03-24-2022 11:17-0400 Respiratory rate 16 /min DO Zeus Vaschak Work Phone: [facility] 03-24-2022 11:17-0400 SaO2% (BldA) [Mass fraction] 100 % DO Zeus Vaschak Work Phone: [facility] 03-24-2022 11:17-0400 Systolic blood pressure 133 mm[Hg] DO Zeus Vaschak Work Phone: [facility] 12-23-2021 14:43-0400 Body temperature 97.8 [degF] DO Zeus Cristinachak Work Phone: [facility] 12-23-2021 14:43-0400 Body weight 69.85 kg DO Zeus Vaschak Work Phone: [facility] 12-23-2021 14:43-0400 Diastolic blood pressure 75 mm[Hg] DO Zeus Vaschak Work Phone: [facility] 12-23-2021 14:43-0400 Heart rate 62 /min DO Zeus Cristinachak Work Phone: [facility] 12-23-2021 14:43-0400 Respiratory rate 16 /min DO Zeus Vaschak Work Phone: [facility] 12-23-2021 14:43-0400 SaO2% (BldA) [Mass fraction] 99 % DO Zeus Vaschak Work Phone: [facility] 12-23-2021 14:43-0400 Systolic blood pressure 126 mm[Hg] DO Zeus Vaschak Work Phone: [facility] 05-31-2020 13:09-0500 Body height 172.72 cm DO Zeus Vaschak Work Phone: [facility] Encounters Encounter Date Encounter Type Care Provider Facility Start: 09-12-2023 ambulatory Rosa Demetrius Facility:[facility] Start: 09-11-2023 End: 09-11-2023 ambulatory Mckenzie Perkins Facility:[facility] Start: 09-11-2023 End: 09-11-2023 ambulatory DO Zeus Lamas Work Phone: [facility] Work Phone: Start: 09-11-2023 End: 09-11-2023 Patient encounter procedure DO Zeus Thornek Work Phone: [facility] Work Phone: Start: 06-05-2023 End: 06-05-2023 ambulatory MCKENZIE PERKINS Not Available Start: 03-21-2023 End: 03-21-2023 ambulatory DO Zeus Lamas Work Phone: [facility] Work Phone: Start: 03-21-2023 End: 03-21-2023 Registered Recurring DO Zeus Matik Work Phone: [facility] Work Phone: Start: 03-19-2023 End: 03-19-2023 ambulatory Zeus Cydney Facility:[facility] Start: 03-19-2023 Encounter for genera l adult medical examination without abnormal findings Zeus Lamas [facility] Start: 03-19-2023 Registered Recurring DO Zeus Matik Work Phone: [facility] Work Phone: Start: 03-19-2023 End: 03-19-2023 ambulatory DO Zeus Matik Work Phone: [facility] Work Phone: Start: 03-19-2023 End: 03-19-2023 Patient encounter procedure DO Zeus Matik Work Phone: [facility] Work Phone: Start: 09-08-2022 End: 09-08-2022 ambulatory DO Zeus Lamas Work Phone: [facility] Work Phone: Start: 09-08-2022 End: 09-08-2022 Patient encounter procedure DO Zeus Lamas Work Phone: [facility] Work Phone: Start: 08-31-2022 End: 08-31-2022 ambulatory DO Zeus Lamas Work Phone: [facility] Work Phone: Start: 08-31-2022 End: 08-31-2022 Patient encounter procedure DO Zeus Lamas Work Phone: [facility] Work Phone: Start: 03-24-2022 End: 03-24-2022 ambulatory DO Zeus Lamas Work Phone: [facility] Work Phone: Start: 03-24-2022 End: 03-24-2022 Registered Recurring DO [facility] Start: 12-23-2021 End: 12-23-2021 Registered Recurring DO Ze[facility] Lam[facility] Start: 12-20-2021 End: 12-20-2021 Patient encounter procedure DO Zeus Lamas Work Phone: [facility] Start: 12-20-2017 Patient encounter ZEUS LAMAS Fac ility:[id number] Procedures Date Procedure Procedure Detail Performing Clinician Start: 09-11-2023 Screening mammograph y of bilateral breasts DO Zeus Lamas Work Phone: Start: 09-08-2022 Mammography of left breast DO Zeus Lamas Work Phone: Start: 08-31-2022 Screening mammograph y of bilateral breasts DO Zeus Lamas Work Phone: Start: 08-18-2021 Computed tomography of abdomen and pelvis with contrast DO Zeus Lamas Work Phone: Plan of Treatment Date Care Activity Detail Author Start: 12-23-2021 Registered Recurring Thrombocytosis [facility] Start: 09-28-2021 [facility] Start: 09-21-2021 [facility] Start: 08-19-2021 [facility] Comprehensive metabo lic 1999 panel - Serum or Plasma [facility] Work Phone: Comprehensive metabo lic 1999 panel - Serum or Plasma [facility] Comprehensive metabo lic 1999 panel - Serum or Plasma [facility] Payers Date Payer Category Payer Self-pay [id number] 2020 Unknown [id number] 2020 Unknown [id number] 1960 Unknown [id number] .16.84 [id number] Unknown TIFFANY TENORIO Unknown [id number] .16.8 [id number] Unknown [id number] .16.8 [id number] Unknown [id number] .16.8 [id number] Social History Date Type Detail Facility Start: 12-23-2021 End: 03-24-2022 Tobacco smoking status NHIS Never smoked tobacco (finding) [facility] Start: 1960 Sex Assigned At Female F [facility] Clinical Notes 05-31-2020 to 03-24-2022 Note Date & Type Note Facility 03-24-2022 Progress note Note Date/Time March 24, 2022 11:23[facility] at [address] [address] Hem/Onc Follow Up Note - OP Signed Patient: Gloria Allen MR#: [id number] : 1960 Acct:[id number] Age/Sex: 61 / F Type: REG RCR Copies to: Zeus Lamas,DO~ Subjective Date/Time of Service: Date of Service: 03/24/2022 Time of Service: : Chief Complaint: Patient is here today for a 3 month followup visit and go over labs. No new concerns HPI: 03/24/2022: Gloria returns for 3-month follow-up, still denying any significantchange in energy level, headaches, dizziness, visual changes, or other concerning symptoms. She does not have any erythromelalgia. She continues to have platelet count near 500,000. She is taking 81 mg of aspirin most days and 160 mg about 2 to 3 days/week. We discussed that age greater than 60 is a risk factor although for polycythemia vera risk is higher at age greater than 67. Inabsence of any other symptoms or prior thromboses with relatively stable platelet count, it is reasonable to continue observation. Since she has not hadany significant change of her platelet count or symptoms over the last year we will defer follow-up CBC, CMP only to 6 months and follow her with symptoms and exam in 1 year. If she has new concerning symptoms we will see her sooner for discussion of cytoreductive therapy. Low complexity visit 20 minutes. 12/23/2021: Here for 3 month followup. She did not notice any change in energy level after iron infusions and platelet count is a little more elevated. We again discussed cytoreduction for elevated platelets > 500,000. She wishes to continue aspirin and we will increase dose from 81 to 160mg daily. We discussedsigns/symptoms of small vessel thrombosis (visual changes, headaches, dizziness,and dyspnea). Will continue followup every 3 months with CBC, CMP, sooner if new symptoms. 09/16/2021: Bone marrow biopsy performed 08/22/2021 due to persistent thrombocytosis with JAK2 mutation. Bone marrow biopsy does show mildly hypocellular marrow for age with megakaryocytic hyperplasia and no significant fibrosis (MF 0-1) most consistent with essential thrombocythemia. She has absent iron stores. Platelets are currently 494,000. Due to absent iron storesand prior intolerance of oral iron due to constipation, I will treat with Injectafer 750mg IV x 2 doses. 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 If platelets < 450,000 at that time, will not treat with cytoreduction and continue to follow every 4 months. 05/19/2021: Gloria is here for 4-month follow-up and had outside labs 05/16/2021 showing persistent elevation of platelet count to 555,000. She denies any constitutional symptoms such as fever, chills, sweats, or recent infections. No history of thrombosis. No erythromelalgia, headaches, visual changes, or dizziness. She had an evaluation for work-up of palpitations with echocardiogram and event monitor in January 2021 which was negative. We discussed NCCN guidelines for diagnosis and therapy recommendations for cytoreduction for essential thrombocytosis. We discussed that she is now considered high risk due to Villa 2 mutation and age over 60. The diagnostic criteria of essential thrombocytosis includes platelet count greater than 450,000, bone marrow biopsy requiring proliferation of megakaryocytic lineage with increased and large mature megakaryocytes and no increase or left shift in neutrophils or erythropoiesis with minor grade 1 increase in reticulin fibers. She also must not meet any diagnostic criteria for CML, PV, PMI, myelodysplasticsyndrome, or other myeloid disorders and have presence of JAK2 mutation (noted on prior peripheral blood studies). Minor criteria is not meeting diagnosis forreactive thrombocytosis with presence of a clonal marker. --Now that her platelet count is 555,000 we did discuss working up essential thrombocytosis with bone marrow biopsy and CT to assess for splenomegaly prior to cytoreductive therapy. She wishes to defer the studies until July 2021 unless new symptoms arise. We will arrange her follow-up at that time and plan for bone marrow biopsy and CT. She may return sooner if new issues arise. 12/27/2020: Gloria has no new symptoms--no thrombosis history. Platelet count stable at 480,000. No erythromelalgia, headaches, visual changes or dizziness. Continues aspirin 81 mg daily. She remains in low risk group--no indications for cytoreduction, still low risk. Followup in 4 months with CBC--will recheck labs and exam at that time. 09/13/2020: Gloria returns for 3 month followup of Essential Thrombocytosis. She has prior JAK2 mutation with mild thrombocytosis--I decided against rechecking JAK2 level as she will continue observation on low dose aspirin as long as platelet count is less that 550-600,000. She denies erythromelalgia, headaches, or dizziness. We will continue every 3 month labs and followup (may extend followup to 6 months if clinically stable over the next 3 visits). 06/14/2020: Noted follow-up labs from 05/31/2020 to evaluate for elevated platelet counts. Platelets returned at 166,000 with normal hemoglobin 14.2 blood cell count 8900. Serum iron profile normal iron saturation 30% and ferritin 45.4. Normal C-reactive protein less than 0.5 and negative STEPHANIE and rheumatoid factor screen. Testing for JAK2 V617F mutation returned +8.57% with other JAK2 exons 12 through 14, CALR, MPL, and translocation (9;22) negative. I reviewed NCCN criteria for myeloproliferative neoplasm diagnosis and follow-up with the patient. She currently does not have any symptoms concerning for active treatment of myeloproliferative neoplasm, no splenomegaly, and she meets 3 majorcriteria 1 minor criteria (absence of reactive causes cytosis) for myeloproliferative neoplasm essential thrombocytosis. At this time there is no indication for bone marrow aspiration biopsy. The only other work-up that she requires is testing for acquired von Willebrand's disease with PT/PTT, von Willebrand factor antigen and activity and factor VIIIa level. She still meets low risk criteria at age 60 with absence of thrombosis, however she may benefit from low-dose aspirin if von Willebrand screen is negative. I will contact her with the results of von Willebrand's testing in about 2 weeks. She will follow-up with me every 3 months for the first 2 visits and if no evidence of progression or requirements for active therapy I will follow her every 4 months thereafter. At her 6-month visit I will recheck her JAK2 V617F mutation percentage to see if this appears to be progressing over time. This is a moderate complexity visit over 30 minutes to discuss complex testing, staging, and criteria for therapy as well as written materials from NCCN regarding symptoms and follow-up. PREVIOUS HISTORY: This is a now 61 year old lady in excellent health who was found on recent labs to have mild thrombocytosis. No prior h/o abnormal blood counts--she does report prior iron deficiency anemia over 20 years ago, but no recent iron deficiency or bright red blood per rectum. She notes recent hot flashes, burning epigastric pain, and mild constipation. No weight loss. No known history of autoimmune disease or chronic infection. She is concerned that her father had CML, one sister with melanoma, and another with undifferentiated cancer. She is concerned that her epigastric pain could represent malignancy. Of note she does report that her grandfather was diagnosed with CMML at age 93 but no other family history of hematologic disorders. She agreed to labs today, still showing mild thrombocytosis. I contacted her following her appointment to notify her of results and we will coordinate workupfor essential thrombocytosis or other myeloproliferative disorders. She will return Sunday for BCR/ABL, JAK2 V617M mutation with reflex to exons 12-14, CALR,and MPL. We will review these results at 2 week followup and determine if further workup is required. She will address epigastric pain with you in followup. - Summary of Therapies Summary of Therapies: Observation only--at 05/19/2021 visit she is now greater than age 60 with platelets 506,000 but requested to defer therapy unless symptomatic Injectafer 750mg IV x 2 weekly doses order 09/16/2021. ROS Details: All systems reviewed & no additional complaints except as documented Subjective/ROS - Narrative: CONSTITUTIONAL: No significant fatigue, negative for fever or night sweats. HEAD AND NECK: Negative for changes in hearing and vision. Negative for mouth ulcers, nasal congestion and nasal drainage. PULMONARY: Negative for chest pain, cough and dyspnea. CARDIOVASCULAR: Negative for claudication and irregular heartbeat/palpitations--completed workup for dysrhythmia with unremarkable echo and event monitor in 01/2021. GASTROINTESTINAL: Denies abdominal pain, constipation, decreased appetite. No diarrhea, nausea or vomiting. GENITOURINARY: Negative for dysuria and hematuria. ENDOCRINE: Negative for cold intolerance and positive for recent heat intolerance. Post menopausal about 10 years. CENTRAL NERVOUS SYSTEM: Negative for gait disturbance and headache. No motor orsensory deficits. PSYCHIATRIC: Negative for anxiety or depression. DERMATOLOGICAL: Negative for pruritus and rash. Negative for suspicious skin lesions. MUSCULOSKELETAL: Negative for back pain and bone/joint symptoms. HEMATOLOGICAL: Negative for bleeding and easy bruising. Negative for history of transfusion or thromboembolic disease (no DVT, no PE, No stroke or TIA). ALLERGY: Negative for environmental allergies and food allergies. PMFSH - History Attestation statement: The following information was validated with the patient. Source: Old Records Reviewed - Medical History Medical History: Medical History (Last Reviewed 03/24/22 @ 16:09 by Rosa Romo MD) delivery delivered - Surgical History Surgical History: Surgical History (Last Reviewed 03/24/22 @ 16:09 by Rosa Romo MD) [place] teeth removed - Family History Family History: Family History (Last Reviewed 03/24/22 @ 16:09 by Rosa Romo MD) Mother Dementia Father Aortic valvar stenosis Father CMML (chronic myelomonocytic leukemia) Sister Melanoma - Social History Smoking Status: Never smoker Substance Use Type: None Home Medications & Allergies Allergies No Known Allergies Allergy (Verified 03/24/22 11:16) Home Medications ascorbic acid (vitamin C) 500 mg capsule,extended release (Vitamin C) 500 mg PO DAILY 02/06/18 [History Confirmed 03/24/22] cholecalciferol (vitamin D3) 50 mcg (2,000 unit) tablet (Vitamin D3) 1 tab PO DAILY 02/06/18 [History Confirmed 03/24/22] loratadine 10 mg tablet (Claritin) 10 mg PO DAILY PRN Allergy Symptoms 02/06/18 [History Confirmed 03/24/22] magnesium 250 mg tablet 250 mg PO DAILY 02/06/18 [History Confirmed 03/24/22] acetaminophen 325 mg tablet (Tylenol) 325 mg PO ONCE 05/31/20 [History Confirmed 03/24/22] aspirin 81 mg tablet,delayed release 81 mg PO DAILY 09/13/20 [History Confirmed 03/24/22] Objective - Height/Weight Height/Weight: Height 5 ft 8 in Weight 70.76 kg - Vital Signs Vital Signs: 03/24/22 11:17 Temperature 97.8 F Pulse Rate [Left Brachial] 58 L Respiratory Rate 16 Blood Pressure [Left Arm] 133/81 02 Sat by Pulse Oximetry 100 Oxygen Delivery Method Room Air Physical Exam Narrative: CONSTITUTIONAL: The patient is in no acute distress. HEAD / FACE: Normocephalic. EYES: Conjunctivae and lids are benign in appearance. Ocular movement intact. EARS: Hearing grossly intact. NOSE / MOUTH / THROAT: Nose, mouth, tongue and oropharynx are benign in appearance. No signs of inflammation. NECK / THYROID: Neck is supple. Thyroid is symmetrical, without thyromegaly, masses or palpable nodules. LYMPHATIC: No palpable cervical, supraclavicular, axillary, or inguinal adenopathy. RESPIRATORY: Normal to inspection. Lungs clear to auscultation and percussion. No wheezing, rales, rhonchi or rubs. Normal effort. CARDIOVASCULAR: Regular rate and rhythm. No murmurs, gallops, or rubs. VASCULAR: Carotid, radial, femoral and pedal pulses present bilaterally. No bruits. ABDOMEN: Bowel sounds normoactive. Soft, nontender and non-distended. No hepatosplenomegaly. No masses. GENITOURINARY: No CVA tenderness. No suprapubic fullness or tenderness. No groinadenopathy. No evidence of hernias. INTEGUMENTARY: The skin is unremarkable. No rashes. No suspicious lesions BACK / SPINE: The back is nontender. MUSCULOSKELETAL: Normal musculature, no joint deformities or abnormalities, normal range of motion for all four extremities. EXTREMITIES: No edema, cyanosis or clubbing. No Mary sign. NEUROLOGICAL: Alert and oriented. Cranial nerves intact. No gross motor or sensory deficits. PSYCHIATRIC: No anxiety or evidence of depression. - ECOG Performance Status ECOG Score: 0 Results - Labs Labs: Diagram of Most Recent CBC and CMP 03/22/22 13:46 03/22/22 13:46 Labs - Last 7 Days 03/22/22 13:46: PHA Creatinine Clear 75.44, Sodium 137, Potassium 4.4, Chloride 100, Carbon Dioxide 29.8, Anion Gap 11.6, BUN 12, Creatinine 0.79, Est GFR ( Amer) > 60, Est GFR (Non-Af Amer) > 60, Glucose 123 H, Calcium 9.7, Total Bilirubin 1.8 H, AST 22, ALT 17, Alkaline Phosphatase 56, Total Protein 6.5, Albumin 4.3, Globulin 2.2, Albumin/Globulin Ratio 2.0 03/22/22 13:46: Corrected WBC 8.0, Uncorrected WBC Count 8.0, RBC 4.63, Hgb 13.6, Hct 41.9, MCV 90.4, MCH 29.4, MCHC 32.5, RDW 14.7, Plt Count 506 H, MPV 8.3, Neut % (Auto) 66.6, Lymph % (Auto) 24.9, Pope % (Auto) 5.2, Eos % (Auto) 2.4, Baso % (Auto) 0.9, Neut # (Auto) 5.3, Lymph # (Auto) 2.0, Pope # (Auto) 0.4, Eos # (Auto) 0.2, Baso # (Auto) 0.1, Nucleated RBC % (auto) 0.0 - Impressions No new imaging for review Assessment and Plan - TNM Staging Staging: Essential thrombocytosis, high risk (age >60, JAK2 mutation) (1) Essential thrombocytosis This is a now 61 year old female referred in May 2020 for mild thrombocytosis with normal hemoglobin and white blood cells. No history of splenectomy, chronic infection, or known chronic inflammation. She hansen normal iron studies and a normal CRP (a sister has RA--STEPHANIE and RF returned negative). We reviewed results of BCR/ABL to r/o CML (-), CALR (-), and MPL (-). However, the patient has 8.57% JAK2 V617F mutation which in addition to her thrombocytosis greater than 460,000 and absence of criteria for polycythemia vera or other secondary causes of thrombosis would potentially meet the diagnostic criteria of essentialthrombocythemia. At that time we agreed that she does not require bone marrow aspiration biopsy for further evaluation nor did she meet any indications for active therapy. Low-dose aspirin for thrombosis prevention 81 mg daily due to age 60. Testing for acquired von Willebrand's disease returned negative. We discussed common features such as weight loss, night sweats, early satiety, abdominal discomfort, and other laboratory anomaly such changes leukocytosis and worseningthrombocytosis that may meet criteria for therapy with hydroxyurea in the future. She expressed understanding and will continue to follow up with me every 3-6 months. No indication for cytoreduction at that time. --At followup 05/19/2021--she is now >60 and has rising platelet count to 555,000. No thromboembolic disease, constitutional symptoms, or vasomotor phenomena such as erythromelalgia. I recommended bone marrow biopsy now that she meets high risk disease due to JAK2 with age > 60. She wishes to defer thisto July 2021 in absence of symptoms. If she meets all major criteria for ET diagnosis hat that time, we may consider cytoreduction (discussed options of hydroxyurea, peg IF ramon-2b, or anagrelide). She is given a copy of NCCN guidelines for diagnostic criteria and goals of cytoreduction. We will set up CT Abdomen/Pelvis in July 2021 as baseline for measurement of liver and spleen size and CBC with bone marrow biopsy at that time. 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 Thrombocytosis is improved from last visit--will treat withInjectafer for absent iron stores (prior intolerance oral iron). Will f/u 4-6 weeks to review iron studies with COMPUTER NETWORKING INSTRUCTOR, 4 month f/u CBC and determine cytoreduction if platelet count still > 450,000. --12/23/2021: Patient had no change of symptoms with Injectafer infusions. Platelets were 527,000 today, we again discussed cytoreductive therapy with hydroxyurea or interferon ramon. We will increase aspirin to 160mg daily. She will followup in 3 months or sooner as needed. -- 03/24/2022: Patient again has no change in symptoms. Platelets 506,000 today. No signs of hyperviscosity and patient still is reluctant to start cytoreductive therapy in absence of symptoms. She is taking aspirin 81 mg dailywith 2 tablets (160 mg) about 3 days/week. Since she has had clinical stabilityover the last year and is not interested in cytoreductive therapy, we will deferlabs with CBC and CMP to 6 months and follow-up with me with labs and exam in 12months. If she has significant thrombocytosis or concerning symptoms that wouldincrease risk of hyperviscosity, we will have her return sooner for discussion of cytoreductive therapy. Also discussed routine age-appropriate screening for malignancy. This is a low complexity visit over 20 minutes to review exam and laboratories, and indications for therapy for essential thrombocythemia, now high risk. (2) Iron deficiency anemia Iron deficiency anemia defined by absent bone marrow stores. Thrombocytosis maybe reactive and she has prior intolerance of oral iron. Normal hemoglobin and normal iron studies after Injectafer 750mg x 2 weekly doses. - Time with Patient Time Spent with Patient (Follow Up Visit): Less than 20 minutes - Low complexityfollowup review labs and continued surveillance per patient request Coordination of Care & Counseling Time: Greater than 50% of time spent with patient was for coordination of care (as documented) and [id number]-[id number] counseling of patient and/or family. Dictated By: Rosa Romo MD DD/ [id number] Signed By: <Electronically signed by MD Rosa Romo> 03/24/22 16[address] [facility] Work Phone: [phone]) 659-412807-30-2022 Progress note Author Rosa Romo [facility] December 24, 2021 4:39pm Note Date/Time December 23, 2021 2:49 pm [facility] at [address] [address] Hem/Onc Follow Up Note - OP Signed Patient: Gloria Allen MR#: [id number] : 1960 Acct:[id number] Age/Sex: 61 / F Type: REG RCR Copies to: Zeus Lamas DO~ Subjective Date/Time of Service: Date of Service: 12/23/2021 Time of Service: 14:48 Chief Complaint: Patient is here today for a follow up visit for essential thrombocytosis and go over labs HPI: 12/23/2021: Here for 3 month followup. She did not notice any change in energy level after iron infusions and platelet count is a little more elevated. We again discussed cytoreduction for elevated platelets > 500,000. She wishes to continue aspirin and we will increase dose from 81 to 160mg daily. We discussedsigns/symptoms of small vessel thrombosis (visual changes, headaches, dizziness,and dyspnea). Will continue followup every 3 months with CBC, CMP, sooner if new symptoms. 09/16/2021: Bone marrow biopsy performed 08/22/2021 due to persistent thrombocytosis with JAK2 mutation. Bone marrow biopsy does show mildly hypocellular marrow for age with megakaryocytic hyperplasia and no significant fibrosis (MF 0-1) most consistent with essential thrombocythemia. She has absent iron stores. Platelets are currently 494,000. Due to absent iron storesand prior intolerance of oral iron due to constipation, I will treat with Injectafer 750mg IV x 2 doses. 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 If platelets < 450,000 at that time, will not treat with cytoreduction and continue to follow every 4 months. 05/19/2021: Gloria is here for 4-month follow-up and had outside labs 05/16/2021 showing persistent elevation of platelet count to 555,000. She denies any constitutional symptoms such as fever, chills, sweats, or recent infections. No history of thrombosis. No erythromelalgia, headaches, visual changes, or dizziness. She had an evaluation for work-up of palpitations with echocardiogram and event monitor in January 2021 which was negative. We discussed NCCN guidelines for diagnosis and therapy recommendations for cytoreduction for essential thrombocytosis. We discussed that she is now considered high risk due to Villa 2 mutation and age over 60. The diagnostic criteria of essential thrombocytosis includes platelet count greater than 450,000, bone marrow biopsy requiring proliferation of megakaryocytic lineage with increased and large mature megakaryocytes and no increase or left shift in neutrophils or erythropoiesis with minor grade 1 increase in reticulin fibers. She also must not meet any diagnostic criteria for CML, PV, PMI, myelodysplasticsyndrome, or other myeloid disorders and have presence of JAK2 mutation (noted on prior peripheral blood studies). Minor criteria is not meeting diagnosis forreactive thrombocytosis with presence of a clonal marker. --Now that her platelet count is 555,000 we did discuss working up essential thrombocytosis with bone marrow biopsy and CT to assess for splenomegaly prior to cytoreductive therapy. She wishes to defer the studies until July 2021 unless new symptoms arise. We will arrange her follow-up at that time and plan for bone marrow biopsy and CT. She may return sooner if new issues arise. 12/27/2020: Gloria has no new symptoms--no thrombosis history. Platelet count stable at 480,000. No erythromelalgia, headaches, visual changes or dizziness. Continues aspirin 81 mg daily. She remains in low risk group--no indications for cytoreduction, still low risk. Followup in 4 months with CBC--will recheck labs and exam at that time. 09/13/2020: Gloria returns for 3 month followup of Essential Thrombocytosis. She has prior JAK2 mutation with mild thrombocytosis--I decided against rechecking JAK2 level as she will continue observation on low dose aspirin as long as platelet count is less that 550-600,000. She denies erythromelalgia, headaches, or dizziness. We will continue every 3 month labs and followup (may extend followup to 6 months if clinically stable over the next 3 visits). 06/14/2020: Noted follow-up labs from 05/31/2020 to evaluate for elevated platelet counts. Platelets returned at 166,000 with normal hemoglobin 14.2 blood cell count 8900. Serum iron profile normal iron saturation 30% and ferritin 45.4. Normal C-reactive protein less than 0.5 and negative STEPHANIE and rheumatoid factor screen. Testing for JAK2 V617F mutation returned +8.57% with other JAK2 exons 12 through 14, CALR, MPL, and translocation (9;22) negative. I reviewed NCCN criteria for myeloproliferative neoplasm diagnosis and follow-up with the patient. She currently does not have any symptoms concerning for active treatment of myeloproliferative neoplasm, no splenomegaly, and she meets 3 majorcriteria 1 minor criteria (absence of reactive causes cytosis) for myeloproliferative neoplasm essential thrombocytosis. At this time there is no indication for bone marrow aspiration biopsy. The only other work-up that she requires is testing for acquired von Willebrand's disease with PT/PTT, von Willebrand factor antigen and activity and factor VIIIa level. She still meets low risk criteria at age 60 with absence of thrombosis, however she may benefit from low-dose aspirin if von Willebrand screen is negative. I will contact her with the results of von Willebrand's testing in about 2 weeks. She will follow-up with me every 3 months for the first 2 visits and if no evidence of progression or requirements for active therapy I will follow her every 4 months thereafter. At her 6-month visit I will recheck her JAK2 V617F mutation percentage to see if this appears to be progressing over time. This is a moderate complexity visit over 30 minutes to discuss complex testing, staging, and criteria for therapy as well as written materials from NCCN regarding symptoms and follow-up. PREVIOUS HISTORY: This is a now 61 year old lady in excellent health who was found on recent labs to have mild thrombocytosis. No prior h/o abnormal blood counts--she does report prior iron deficiency anemia over 20 years ago, but no recent iron deficiency or bright red blood per rectum. She notes recent hot flashes, burning epigastric pain, and mild constipation. No weight loss. No known history of autoimmune disease or chronic infection. She is concerned that her father had CML, one sister with melanoma, and another with undifferentiated cancer. She is concerned that her epigastric pain could represent malignancy. Of note she does report that her grandfather was diagnosed with CMML at age 93 but no other family history of hematologic disorders. She agreed to labs today, still showing mild thrombocytosis. I contacted her following her appointment to notify her of results and we will coordinate workupfor essential thrombocytosis or other myeloproliferative disorders. She will return Sunday for BCR/ABL, JAK2 V617M mutation with reflex to exons 12-14, CALR,and MPL. We will review these results at 2 week followup and determine if further workup is required. She will address epigastric pain with you in followup. - Summary of Therapies Summary of Therapies: Observation only--at 05/19/2021 visit she is now greater than age 60 with platelets 555,000 but requested to defer diagnostic work-up to July. Injectafer 750mg IV x 2 weekly doses order 09/16/2021. ROS Details: All systems reviewed & no additional complaints except as documented Subjective/ROS - Narrative: CONSTITUTIONAL: Mild fatigue, negative for fever or night sweats. HEAD AND NECK: Negative for changes in hearing and vision. Negative for mouth ulcers, nasal congestion and nasal drainage. PULMONARY: Negative for chest pain, cough and dyspnea. CARDIOVASCULAR: Negative for claudication and irregular heartbeat/palpitations--completed workup for dysrhythmia with unremarkable echo and event monitor in 01/2021. GASTROINTESTINAL: Denies abdominal pain, constipation, decreased appetite. No diarrhea, nausea or vomiting. GENITOURINARY: Negative for dysuria and hematuria. ENDOCRINE: Negative for cold intolerance and positive for recent heat intolerance. Post menopausal about 10 years. CENTRAL NERVOUS SYSTEM: Negative for gait disturbance and headache. No motor orsensory deficits. PSYCHIATRIC: Negative for anxiety or depression. DERMATOLOGICAL: Negative for pruritus and rash. Negative for suspicious skin lesions. MUSCULOSKELETAL: Negative for back pain and bone/joint symptoms. HEMATOLOGICAL: Negative for bleeding and easy bruising. Negative for history of transfusion or thromboembolic disease (no DVT, no PE, No stroke or TIA). ALLERGY: Negative for environmental allergies and food allergies. [facility] - History Attestation statement: The following information was validated with the patient. Source: Old Records Reviewed - Medical History Medical History: Medical History (Last Reviewed 12/24/21 @ 16:34 by Rosa Romo MD) delivery delivered - Surgical History Surgical History: Surgical History (Last Reviewed 12/24/21 @ 16:34 by Rosa Romo MD) [place] teeth removed - Family History Family History: Family History (Last Reviewed 12/24/21 @ 16:34 by Rosa Romo MD) Mother Dementia Father Aortic valvar stenosis Father CMML (chronic myelomonocytic leukemia) Sister Melanoma - Social History Smoking Status: Never smoker Substance Use Type: None Home Medications & Allergies Allergies No Known Allergies Allergy (Verified 12/23/21 14:42) Home Medications ascorbic acid (vitamin C) 500 mg capsule,extended release (Vitamin C) 500 mg PO DAILY 02/06/18 [History Confirmed 12/23/21] cholecalciferol (vitamin D3) 50 mcg (2,000 unit) tablet (Vitamin D3) 1 tab PO DAILY 02/06/18 [History Confirmed 12/23/21] loratadine 10 mg tablet (Claritin) 10 mg PO DAILY PRN Allergy Symptoms 02/06/18 [History Confirmed 12/23/21] magnesium 250 mg tablet 250 mg PO DAILY 02/06/18 [History Confirmed 12/23/21] acetaminophen 325 mg tablet (Tylenol) 325 mg PO ONCE 05/31/20 [History Confirmed 12/23/21] aspirin 81 mg tablet,delayed release 81 mg PO DAILY 09/13/20 [History Confirmed 12/23/21] Objective - Height/Weight Height/Weight: Height 5 ft 8 in Weight 69.853 kg - Vital Signs Vital Signs: 12/23/21 14:43 Temperature 97.8 F Pulse Rate [Left Brachial] 62 Respiratory Rate 16 Blood Pressure [Left Arm] 126/75 02 Sat by Pulse Oximetry 99 Oxygen Delivery Method Room Air Physical Exam Narrative: CONSTITUTIONAL: The patient is in no acute distress. HEAD / FACE: Normocephalic. EYES: Conjunctivae and lids are benign in appearance. Ocular movement intact. EARS: Hearing grossly intact. NOSE / MOUTH / THROAT: Nose, mouth, tongue and oropharynx are benign in appearance. No signs of inflammation. NECK / THYROID: Neck is supple. Thyroid is symmetrical, without thyromegaly, masses or palpable nodules. LYMPHATIC: No palpable cervical, supraclavicular, axillary, or inguinal adenopathy. RESPIRATORY: Normal to inspection. Lungs clear to auscultation and percussion. No wheezing, rales, rhonchi or rubs. Normal effort. CARDIOVASCULAR: Regular rate and rhythm. No murmurs, gallops, or rubs. VASCULAR: Carotid, radial, femoral and pedal pulses present bilaterally. No bruits. ABDOMEN: Bowel sounds normoactive. Soft, nontender and non-distended. No hepatosplenomegaly. No masses. GENITOURINARY: No CVA tenderness. No suprapubic fullness or tenderness. No groinadenopathy. No evidence of hernias. INTEGUMENTARY: The skin is unremarkable. No rashes. No suspicious lesions BACK / SPINE: The back is nontender. MUSCULOSKELETAL: Normal musculature, no joint deformities or abnormalities, normal range of motion for all four extremities. EXTREMITIES: No edema, cyanosis or clubbing. No Mary sign. NEUROLOGICAL: Alert and oriented. Cranial nerves intact. No gross motor or sensory deficits. PSYCHIATRIC: No anxiety or evidence of depression. - ECOG Performance Status ECOG Score: 1 Results - Labs Labs: Diagram of Most Recent CBC and CMP 12/20/21 12:48 12/20/21 12:48 Labs - Last 7 Days 12/20/21 12:48: Iron 90, TIBC 361, Iron Saturation 24.0, Transferrin 258, Ferritin 278.9 12/20/21 12:48: PHA Creatinine Clear 76.40, Sodium 138, Potassium 4.0, Chloride 100, Carbon Dioxide 30.2 H, BUN 9, Creatinine 0.78, Est GFR ( Amer) > 60,Est GFR (Non-Af Amer) > 60, Glucose 89, Calcium 9.9, Total Bilirubin 1.4 H, AST 24, ALT 22, Alkaline Phosphatase 52, Total Protein 6.9, Albumin 4.7, Globulin 2.2, Albumin/Globulin Ratio 2.1 12/20/21 12:48: Corrected WBC 6.3, Uncorrected WBC Count 6.3, RBC 4.58, Hgb 13.6, Hct 41.2, MCV 90.0, MCH 29.8, MCHC 33.1, RDW 15.6 H, Plt Count 527 H, MPV 8.5, Neut % (Auto) 63.2, Lymph % (Auto) 26.9, Pope % (Auto) 6.3, Eos % (Auto) 2.9, Baso % (Auto) 0.7, Neut # (Auto) 4.0, Lymph # (Auto) 1.7, Pope # (Auto) 0.4, Eos # (Auto) 0.2, Baso # (Auto) 0.0, Nucleated RBC % (auto) 0.0 - Impressions No imaging for review. Assessment and Plan - TNM Staging Staging: Essential thrombocytosis, high risk (age >60, JAK2 mutation) (1) Essential thrombocytosis This is a now 61 year old female referred in May 2020 for mild thrombocytosis with normal hemoglobin and white blood cells. No history of splenectomy, chronic infection, or known chronic inflammation. She hansen normal iron studies and a normal CRP (a sister has RA--STEPHANIE and RF returned negative). We reviewed results of BCR/ABL to r/o CML (-), CALR (-), and MPL (-). However, the patient has 8.57% JAK2 V617F mutation which in addition to her thrombocytosis greater than 460,000 and absence of criteria for polycythemia vera or other secondary causes of thrombosis would potentially meet the diagnostic criteria of essentialthrombocythemia. At that time we agreed that she does not require bone marrow aspiration biopsy for further evaluation nor did she meet any indications for active therapy. Low-dose aspirin for thrombosis prevention 81 mg daily due to age 60. Testing for acquired von Willebrand's disease returned negative. We discussed common features such as weight loss, night sweats, early satiety, abdominal discomfort, and other laboratory anomaly such changes leukocytosis and worseningthrombocytosis that may meet criteria for therapy with hydroxyurea in the future. She expressed understanding and will continue to follow up with me every 3-6 months. No indication for cytoreduction at that time. --At followup 05/19/2021--she is now >60 and has rising platelet count to 555,000. No thromboembolic disease, constitutional symptoms, or vasomotor phenomena such as erythromelalgia. I recommended bone marrow biopsy now that she meets high risk disease due to JAK2 with age > 60. She wishes to defer thisto July 2021 in absence of symptoms. If she meets all major criteria for ET diagnosis hat that time, we may consider cytoreduction (discussed options of hydroxyurea, peg IF ramon-2b, or anagrelide). She is given a copy of NCCN guidelines for diagnostic criteria and goals of cytoreduction. We will set up CT Abdomen/Pelvis in July 2021 as baseline for measurement of liver and spleen size and CBC with bone marrow biopsy at that time. 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 Thrombocytosis is improved from last visit--will treat withInjectafer for absent iron stores (prior intolerance oral iron). Will f/u 4-6 weeks to review iron studies with COMPUTER NETWORKING INSTRUCTOR, 4 month f/u CBC and determine cytoreduction if platelet count still > 450,000. --12/23/2021: Patient had no change of symptoms with Injectafer infusions. Platelets were 527,000 today, we again discussed cytoreductive therapy with hydroxyurea or interferon ramon. We will increase iron to 160mg daily. She willfollowup in 3 months or sooner as needed. This is a low complexity visit over 25 minutes to review exam and laboratories, response to iron repletion, and indications for therapy for essential thrombocythemia, now high risk. (2) Iron deficiency anemia Iron deficiency anemia defined by absent bone marrow stores. Thrombocytosis maybe reactive and she has prior intolerance of oral iron. Normal hemoglobin and normal iron studies after Injectafer 750mg x 2 weekly doses. - Time with Patient Time Spent with Patient (Follow Up Visit): 25 minutes - Low complexity followup. Coordination of Care & Counseling Time: Greater than 50% of time spent with patient was for coordination of care (as documented) and [id number]-[id number] counseling of patient and/or family. Dictated By: Rosa Romo MD DD/ [id number] Signed By: <Electronically signed by MD Rosa Romo> 12/24/21 7743 [facility] Work Phone: [phone]) 891-948004-23-2022 Progress note Author Rosa Romo [facility] September 17, 2021 6:26pm Note Date/Time September 16, 2021 12: 45pm [facility] [place] at [address] [address] Hem/Onc Follow Up Note - OP Signed Patient: Gloria Allen MR#: [id number] : 1960 Acct:[id number] Age/Sex: 61 / F Type: REG RCR Copies to: Zeus Lamas,DO~ Subjective Date/Time of Service: Date of Service: 09/16/2021 Time of Service: 12:45 Chief Complaint: Patient is here today for a follow up visit to go over bone marrow biopsy HPI: 09/16/2021: Bone marrow biopsy performed 08/22/2021 due to persistent thrombocytosis with JAK2 mutation. Bone marrow biopsy does show mildly hypocellular marrow for age with megakaryocytic hyperplasia and no significant fibrosis (MF 0-1) most consistent with essential thrombocythemia. She has absent iron stores. Platelets are currently 494,000. Due to absent iron storesand prior intolerance of oral iron due to constipation, I will treat with Injectafer 750mg IV x 2 doses. 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 If platelets < 450,000 at that time, will not treat with cytoreduction and continue to follow every 4 months. 05/19/2021: Gloria is here for 4-month follow-up and had outside labs 05/16/2021 showing persistent elevation of platelet count to 555,000. She denies any constitutional symptoms such as fever, chills, sweats, or recent infections. Nohistory of thrombosis. No erythromelalgia, headaches, visual changes, or dizziness. She had an evaluation for work-up of palpitations with echocardiogram and event monitor in January 2021 which was negative. We discussed NCCN guidelines for diagnosis and therapy recommendations for cytoreduction for essential thrombocytosis. We discussed that she is now considered high risk due to Villa 2 mutation and age over 60. The diagnostic criteria of essential thrombocytosis includes platelet count greater than 450,000,bone marrow biopsy requiring proliferation of megakaryocytic lineage with increased and large mature megakaryocytes and no increase or left shift in neutrophils or erythropoiesis with minor grade 1 increase in reticulin fibers. She also must not meet any diagnostic criteria for CML, PV, PMI, myelodysplasticsyndrome, or other myeloid disorders and have presence of JAK2 mutation (noted on prior peripheral blood studies). Minor criteria is not meeting diagnosis forreactive thrombocytosis with presence of a clonal marker. --Now that her platelet count is 555,000 we did discuss working up essential thrombocytosis with bone marrow biopsy and CT to assess for splenomegaly prior to cytoreductive therapy. She wishes to defer the studies until July 2021 unless new symptoms arise. We will arrange her follow-up at that time and plan for bone marrow biopsy and CT. She may return sooner if new issues arise. 12/27/2020: Gloria has no new symptoms--no thrombosis history. Platelet count stable at 480,000. No erythromelalgia, headaches, visual changes or dizziness. Continues aspirin 81 mg daily. She remains in low risk group--no indications for cytoreduction, still low risk. Followup in 4 months with CBC--will recheck labs and exam at that time. 09/13/2020: Gloria returns for 3 month followup of Essential Thrombocytosis. She has prior JAK2 mutation with mild thrombocytosis--I decided against rechecking JAK2 level as she will continue observation on low dose aspirin as long asplatelet count is less that 550-600,000. She denies erythromelalgia, headaches,or dizziness. We will continue every 3 month labs and followup (may extend followup to 6 months if clinically stable over the next 3 visits). 06/14/2020: Noted follow-up labs from 05/31/2020 to evaluate for elevated platelet counts. Platelets returned at 166,000 with normal hemoglobin 14.2 blood cell count 8900. Serum iron profile normal iron saturation 30% and ferritin 45.4. Normal C-reactive protein less than 0.5 and negative STEPHANIE and rheumatoid factor screen. Testing for JAK2 V617F mutation returned +8.57% with other JAK2 exons 12 through 14, CALR, MPL, and translocation (9;22) negative. I reviewed NCCN criteria for myeloproliferative neoplasm diagnosis and follow-up with the patient. She currently does not have any symptoms concerning for active treatment of myeloproliferative neoplasm, no splenomegaly, and she meets 3 majorcriteria 1 minor criteria (absence of reactive causes cytosis) for myeloproliferative neoplasm essential thrombocytosis. At this time there is no indication for bone marrow aspiration biopsy. The only other work-up that she requires is testing for acquired von Willebrand's disease with PT/PTT, von Willebrand factor antigen and activity and factor VIIIa level. She still meets low risk criteria at age 60 with absence of thrombosis, however she may benefit from low-dose aspirin if von Willebrand screen is negative. I will contact her with the results of von Willebrand's testing in about 2 weeks. She will follow-up with me every 3 months for the first 2 visits and if no evidence of progression or requirements for active therapy I will follow her every 4 months thereafter. At her 6-month visit I will recheck her JAK2 V617F mutation percentage to see if this appears to be progressing over time. This is a moderate complexity visit over 30 minutes to discuss complex testing, staging, and criteria for therapy as well as written materials from NCCN regarding symptoms and follow-up. PREVIOUS HISTORY: This is a now 61 year old lady in excellent health who was found on recent labs to have mild thrombocytosis. No prior h/o abnormal blood counts--she does report prior iron deficiency anemia over 20 years ago, but no recent iron deficiency or bright red blood per rectum. She notes recent hot flashes, burning epigastric pain, and mild constipation. No weight loss. No known history of autoimmune disease or chronic infection. She is concerned that her father had CML, one sister with melanoma, and another with undifferentiated cancer. She is concerned that her epigastric pain could represent malignancy. Of note she does report that her grandfather was diagnosed with CMML at age 93 but no other family history of hematologic disorders. She agreed to labs today, still showing mild thrombocytosis. I contacted her following her appointment to notify her of results and we will coordinate workupfor essential thrombocytosis or other myeloproliferative disorders. She will return Sunday for BCR/ABL, JAK2 V617M mutation with reflex to exons 12-14, CALR,and MPL. We will review these results at 2 week followup and determine if further workup is required. She will address epigastric pain with you in followup. - Summary of Therapies Summary of Therapies: Observation only--at 05/19/2021 visit she is now greater than age 60 with platelets 555,000 but requested to defer diagnostic work-up to July. Injectafer 750mg IV x 2 weekly doses order 09/16/2021. ROS Details: All systems reviewed & no additional complaints except as documented Subjective/ROS - Narrative: CONSTITUTIONAL: Mild fatigue, negative for fever or night sweats. HEAD AND NECK: Negative for changes in hearing and vision. Negative for mouth ulcers, nasal congestion and nasal drainage. PULMONARY: Negative for chest pain, cough and dyspnea. CARDIOVASCULAR: Negative for claudication and irregular heartbeat/palpitations--completed workup for dysrhythmia with unremarkable echo and event monitor in 01/2021. GASTROINTESTINAL: Denies abdominal pain, constipation, decreased appetite. No diarrhea, nausea or vomiting. GENITOURINARY: Negative for dysuria and hematuria. ENDOCRINE: Negative for cold intolerance and positive for recent heat intolerance. Post menopausal about 10 years. CENTRAL NERVOUS SYSTEM: Negative for gait disturbance and headache. No motor orsensory deficits. PSYCHIATRIC: Negative for anxiety or depression. DERMATOLOGICAL: Negative for pruritus and rash. Negative for suspicious skin lesions. MUSCULOSKELETAL: Negative for back pain and bone/joint symptoms. HEMATOLOGICAL: Negative for bleeding and easy bruising. Negative for history of transfusion or thromboembolic disease (no DVT, no PE, No stroke or TIA). ALLERGY: Negative for environmental allergies and food allergies. [facility] - History Attestation statement: The following information was validated with the patient. Source: Old Records Reviewed - Medical History Medical History: Medical History (Last Reviewed 09/17/21 @ 18:19 by Rosa Romo MD) delivery delivered - Surgical History Surgical History: Surgical History (Last Reviewed 09/17/21 @ 18:19 by Rosa Romo MD) [place] teeth removed - Family History Family History: Family History (Last Reviewed 09/17/21 @ 18:19 by Rosa Romo MD) Mother Dementia Father Aortic valvar stenosis Father CMML (chronic myelomonocytic leukemia) Sister Melanoma - Social History Smoking Status: Never smoker Substance Use Type: None Home Medications & Allergies Allergies No Known Allergies Allergy (Verified 08/19/21 09:26) Home Medications ascorbic acid (vitamin C) 500 mg capsule,extended release (Vitamin C) 500 mg PO DAILY 02/06/18 [History Confirmed 08/19/21] cholecalciferol (vitamin D3) 50 mcg (2,000 unit) tablet (Vitamin D3) 1 tab PO DAILY 02/06/18 [History Confirmed 08/19/21] loratadine 10 mg tablet (Claritin) 10 mg PO DAILY PRN 02/06/18 [History Confirmed 08/19/21] magnesium 250 mg tablet 250 mg PO DAILY 02/06/18 [History Confirmed 08/19/21] acetaminophen 325 mg tablet (Tylenol) 325 mg PO ONCE 05/31/20 [History Confirmed 08/19/21] aspirin 81 mg tablet,delayed release 81 mg PO DAILY 09/13/20 [History Confirmed 08/19/21] Objective - Resuscitation Status Resuscitation Status: Full Code - Height/Weight Height/Weight: Height 5 ft 8 in Weight 73.028 kg - Vital Signs Vital Signs: 09/16/21 12:38 Temperature 97.0 F L Pulse Rate [Left Brachial] 69 Respiratory Rate 16 Blood Pressure [Left Arm] 125/81 02 Sat by Pulse Oximetry 98 Physical Exam Narrative: CONSTITUTIONAL: The patient is in no acute distress. HEAD / FACE: Normocephalic. EYES: Conjunctivae and lids are benign in appearance. Ocular movement intact. EARS: Hearing grossly intact. NOSE / MOUTH / THROAT: Nose, mouth, tongue and oropharynx are benign in appearance. No signs of inflammation. NECK / THYROID: Neck is supple. Thyroid is symmetrical, without thyromegaly, masses or palpable nodules. LYMPHATIC: No palpable cervical, supraclavicular, axillary, or inguinal adenopathy. RESPIRATORY: Normal to inspection. Lungs clear to auscultation and percussion. No wheezing, rales, rhonchi or rubs. Normal effort. CARDIOVASCULAR: Regular rate and rhythm. No murmurs, gallops, or rubs. VASCULAR: Carotid, radial, femoral and pedal pulses present bilaterally. No bruits. ABDOMEN: Bowel sounds normoactive. Soft, nontender and non-distended. No hepatosplenomegaly. No masses. GENITOURINARY: No CVA tenderness. No suprapubic fullness or tenderness. No groinadenopathy. No evidence of hernias. INTEGUMENTARY: The skin is unremarkable. No rashes. No suspicious lesions BACK / SPINE: The back is nontender. MUSCULOSKELETAL: Normal musculature, no joint deformities or abnormalities, normal range of motion for all four extremities. EXTREMITIES: No edema, cyanosis or clubbing. No Mary sign. NEUROLOGICAL: Alert and oriented. Cranial nerves intact. No gross motor or sensory deficits. PSYCHIATRIC: No anxiety or evidence of depression. - ECOG Performance Status ECOG Score: 1 Results - Labs Labs: Diagram of Most Recent CBC and CMP 08/18/21 10:53 12/16/20 08:50 - Impressions Bilateral Screening Full Field digital mammogram with 3-D imaging. Full field digital CC and MLO imaging performed. CAD utilized. COMPARISON: 06/11/20 HISTORY:Screening FINDINGS: Scattered fibroglandular densities of the breast parenchyma identified. No developing architectural distortion, developing focal breast asymmetry or developing malignant calcifications identified. Scattered benign calcifications identified MM/MM screening mammo BI w/CAD IMPRESSION:No mammographic evidence of malignancy. Routine follow-up recommended in one year. RESULT CODE: 2 Benign Findings(s) DENSITY CODE: 2 (approximately 25-50% glandular) FOLLOW UP: 1YR Assessment and Plan - TNM Staging Staging: Essential thrombocytosis, high risk (age >60, JAK2 mutation) (1) Essential thrombocytosis This is a now 61 year old female referred in May 2020 for mild thrombocytosis with normal hemoglobin and white blood cells. No history of splenectomy, chronic infection, or known chronic inflammation. She hansen normal iron studies and a normal CRP (a sister has RA--STEPHANIE and RF returned negative). We reviewed results of BCR/ABL to r/o CML (-), CALR (-), and MPL (-). However, the patient has 8.57% JAK2 V617F mutation which in addition to her thrombocytosis greater than 460,000 and absence of criteria for polycythemia vera or other secondary causes of thrombosis would potentially meet the diagnostic criteria of essentialthrombocythemia. At that time we agreed that she does not require bone marrow aspiration biopsy for further evaluation nor did she meet any indications for active therapy. Low-dose aspirin for thrombosis prevention 81 mg daily due to age 60. Testing for acquired von Willebrand's disease returned negative. We discussed common features such as weight loss, night sweats, early satiety, abdominal discomfort, and other laboratory anomaly such changes leukocytosis and worseningthrombocytosis that may meet criteria for therapy with hydroxyurea in the future. She expressed understanding and will continue to follow up with me every 3-6 months. No indication for cytoreduction at that time. --At followup 05/19/2021--she is now >60 and has rising platelet count to 555,000. No thromboembolic disease, constitutional symptoms, or vasomotor phenomena such as erythromelalgia. I recommended bone marrow biopsy now that she meets high risk disease due to JAK2 with age > 60. She wishes to defer thisto July 2021 in absence of symptoms. If she meets all major criteria for ET diagnosis hat that time, we may consider cytoreduction (discussed options of hydroxyurea, peg IF ramon-2b, or anagrelide). She is given a copy of NCCN guidelines for diagnostic criteria and goals of cytoreduction. We will set up CT Abdomen/Pelvis in July 2021 as baseline for measurement of liver and spleen size and CBC with bone marrow biopsy at that time. 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 Thrombocytosis is improved from last visit--will treat withInjectafer for absent iron stores (prior intolerance oral iron). Will f/u 4-6 weeks to review iron studies with [employer], 4 month f/u CBC and determine cytoreduction if platelet count still > 450,000. This is a moderate complexity visit over 25 minutes to review exam and laboratories, bone marrow biopsy, coordinate iron repletion, and indications fortherapy for essential thrombocythemia, now high risk. (2) Iron deficiency anemia Iron deficiency anemia defined by absent bone marrow stores. Thrombocytosis maybe reactive and she has prior intolerance of oral iron. Orders for Injectafer 750mg x 2 weekly doses with f/u CBC, iron studies in 4 weeks. - Time with Patient Time Spent with Patient (Follow Up Visit): 25 minutes Coordination of Care & Counseling Time: Greater than 50% of time spent with patient was for coordination of care (as documented) and [id number] counseling of patient and/or family. Dictated By: Rosa Romo MD DD/ [id number] Signed By: <Electronically signed by MD Rosa Romo> 09/17/21 [address] [facility] Work Phone: [phone] Procedure [facility]12-23-2021 Progress note Author Rosa Romo [facility] May 19, 2021 7:48pm Note Date/Time May 19, 2021 3:41pm [facility] at [address] [address] Hem/Onc Follow Up Note - OP Signed Patient: Gloria Allen MR#: [id number] : 1960 Acct:[id number] Age/Sex: 61 / F Type: REG RCR Copies to: Zeus Lamas DO~ Subjective Date/Time of Service: Date of Service: 05/19/2021 Time of Service: 15:10 Chief Complaint: Patient is here today for 4 month follow up visit and go over labs. HPI: 05/19/2021: Gloria is here for 4-month follow-up and had outside labs 05/16/2021 showing persistent elevation of platelet count to 555,000. She denies any constitutional symptoms such as fever, chills, sweats, or recent infections. No history of thrombosis. No erythromelalgia, headaches, visual changes, or dizziness. She had an evaluation for work-up of palpitations with echocardiogram and event monitor in January 2021 which was negative. We discussed NCCN guidelines for diagnosis and therapy recommendations for cytoreduction for essential thrombocytosis. We discussed that she is now considered high risk due to Villa 2 mutation and age over 60. The diagnostic criteria of essential thrombocytosis includes platelet count greater than 450,000, bone marrow biopsy requiring proliferation of megakaryocytic lineage with increased and large mature megakaryocytes and no increase or left shift in neutrophils or erythropoiesis with minor grade 1 increase in reticulin fibers. She also must not meet any diagnostic criteria for CML, PV, PMI, myelodysplastic syndrome, or other myeloid disorders and have presence of JAK2 mutation (noted on prior peripheral blood studies). Minor criteria is not meeting diagnosis for reactivethrombocytosis with presence of a clonal marker. --Now that her platelet count is 555,000 we did discuss working up essential thrombocytosis with bone marrow biopsy and CT to assess for splenomegaly prior to cytoreductive therapy. She wishes to defer the studies until July 2021 unless new symptoms arise. We will arrange her follow-up at that time and plan for bone marrow biopsy and CT. She may return sooner if new issues arise. 12/27/2020: Gloria has no new symptoms--no thrombosis history. Platelet count stable at 480,000. No erythromelalgia, headaches, visual changes or dizziness. Continues aspirin 81 mg daily. She remains in low risk group--no indications for cytoreduction, still low risk. Followup in 4 months with CBC--will recheck labs and exam at that time. 09/13/2020: Gloria returns for 3 month followup of Essential Thrombocytosis. She has prior JAK2 mutation with mild thrombocytosis--I decided against rechecking JAK2 level as she will continue observation on low dose aspirin as long as platelet count is less that 550-600,000. She denies erythromelalgia, headaches, or dizziness. We will continue every 3 month labs and followup (may extend followup to 6 months if clinically stable over the next 3 visits). 06/14/2020: Noted follow-up labs from 05/31/2020 to evaluate for elevated platelet counts. Platelets returned at 166,000 with normal hemoglobin 14.2 blood cell count 8900. Serum iron profile normal iron saturation 30% and ferritin 45.4. Normal C-reactive protein less than 0.5 and negative STEPHANIE and rheumatoid factor screen. Testing for JAK2 V617F mutation returned +8.57% with other JAK2 exons 12 through 14, CALR, MPL, and translocation (9;22) negative. I reviewed NCCN criteria for myeloproliferative neoplasm diagnosis and follow-up with the patient. She currently does not have any symptoms concerning for active treatmentof myeloproliferative neoplasm, no splenomegaly, and she meets 3 major criteria 1 minor criteria (absence of reactive causes cytosis) for myeloproliferative neoplasm essential thrombocytosis. At this time there is no indication for bonemarrow aspiration biopsy. The only other work-up that she requires is testing for acquired von Willebrand's disease with PT/PTT, von Willebrand factor antigenand activity and factor VIIIa level. She still meets low risk criteria at age 60 with absence of thrombosis, however she may benefit from low-dose aspirin if von Willebrand screen is negative. I will contact her with the results of von Willebrand's testing in about 2 weeks. She will follow-up with me every 3 months for the first 2 visits and if no evidence of progression or requirements for active therapy I will follow her every 4 months thereafter. At her 6-month visit I will recheck her JAK2 V617F mutation percentage to see if this appears to be progressing over time. This is a moderate complexity visit over 30 minutes to discuss complex testing, staging, and criteria for therapy as well aswritten materials from NCCN regarding symptoms and follow-up. PREVIOUS HISTORY: This is a now 61 year old lady in excellent health who was found on recent labs to have mild thrombocytosis. No prior h/o abnormal blood counts--she does report prior iron deficiency anemia over 20 years ago, but no recent iron deficiency or bright red blood per rectum. She notes recent hot flashes, burning epigastric pain, and mild constipation. No weight loss. No known history of autoimmune disease or chronic infection. She is concerned that her father had CML, one sister with melanoma, and another with undifferentiated cancer. She isconcerned that her epigastric pain could represent malignancy. Of note she doesreport that her grandfather was diagnosed with CMML at age 93 but no other family history of hematologic disorders. She agreed to labs today, still showing mild thrombocytosis. I contacted her following her appointment to notify her of results and we will coordinate workupfor essential thrombocytosis or other myeloproliferative disorders. She will return Sunday for BCR/ABL, JAK2 V617M mutation with reflex to exons 12-14, CALR,and MPL. We will review these results at 2 week followup and determine if further workup is required. She will address epigastric pain with you in followup. - Summary of Therapies Summary of Therapies: Observation only--at 05/19/2021 visit she is now greater than age 60 with platelets 555,000 but requested to defer diagnostic work-up to July. ROS Details: All systems reviewed & no additional complaints except as documented Subjective/ROS - Narrative: CONSTITUTIONAL: Negative for fatigue, negative for fever or night sweats. HEAD AND NECK: Negative for changes in hearing and vision. Negative for mouth ulcers, nasal congestion and nasal drainage. PULMONARY: Negative for chest pain, cough and dyspnea. CARDIOVASCULAR: Negative for claudication and irregular heartbeat/palpitations--completed workup for dysrhythmia with unremarkable echo and eventmonitor in 01/2021. GASTROINTESTINAL: Denies abdominal pain, constipation, decreased appetite. No diarrhea, nausea or vomiting. GENITOURINARY: Negative for dysuria and hematuria. ENDOCRINE: Negative for cold intolerance and positive for recent heat intolerance. Post menopausal about 10 years. CENTRAL NERVOUS SYSTEM: Negative for gait disturbance and headache. No motor orsensory deficits. PSYCHIATRIC: Negative for anxiety or depression. DERMATOLOGICAL: Negative for pruritus and rash. Negative for suspicious skin lesions. MUSCULOSKELETAL: Negative for back pain and bone/joint symptoms. HEMATOLOGICAL: Negative for bleeding and easy bruising. Negative for history of transfusion or thromboembolic disease (no DVT, no PE, No stroke or TIA). ALLERGY: Negative for environmental allergies and food allergies. [facility] - History Attestation statement: The following information was validated with the patient. Source: Old Records Reviewed - Medical History Medical History: Medical History (Last Reviewed 05/19/21 @ 15:43 by Rosa Romo MD) delivery delivered - Surgical History Surgical History: Surgical History (Last Reviewed 05/19/21 @ 15:43 by Rosa Romo MD) [place] teeth removed - Family History Family History: Family History (Last Reviewed 05/19/21 @ 15:43 by Rosa Romo MD) Mother Dementia Father Aortic valvar stenosis Father CMML (chronic myelomonocytic leukemia) Sister Melanoma - Social History Smoking Status: Never smoker Substance Use Type: None Home Medications & Allergies Allergies No Known Allergies Allergy (Verified 05/19/21 15:12) Home Medications ascorbic acid (vitamin C) 500 mg capsule,extended release (Vitamin C) 500 mg PO DAILY 02/06/18 [History Confirmed 05/19/21] cholecalciferol (vitamin D3) 50 mcg (2,000 unit) tablet (Vitamin D3) 1 tab PO DAILY 02/06/18 [History Confirmed 05/19/21] loratadine 10 mg tablet (Claritin) 10 mg PO DAILY PRN 02/06/18 [History Confirmed 05/19/21] magnesium 250 mg tablet 250 mg PO DAILY 02/06/18 [History Confirmed 05/19/21] acetaminophen 325 mg tablet (Tylenol) 325 mg PO ONCE 05/31/20 [History Confirmed 05/19/21] aspirin 81 mg tablet,delayed release 81 mg PO DAILY 09/13/20 [History Confirmed 05/19/21] Objective - Height/Weight Height/Weight: Height 5 ft 8 in Weight 80.286 kg - Vital Signs Vital Signs: 05/19/21 15:13 Temperature 98.0 F Pulse Rate [Left Brachial] 63 Respiratory Rate 20 Blood Pressure [Left Arm] 137/62 02 Sat by Pulse Oximetry 98 Physical Exam Narrative: CONSTITUTIONAL: The patient is in no acute distress. HEAD / FACE: Normocephalic. EYES: Conjunctivae and lids are benign in appearance. Ocular movement intact. EARS: Hearing grossly intact. NOSE / MOUTH / THROAT: Nose, mouth, tongue and oropharynx are benign in appearance. No signs of inflammation. NECK / THYROID: Neck is supple. Thyroid is symmetrical, without thyromegaly, masses or palpable nodules. LYMPHATIC: No palpable cervical, supraclavicular, axillary, or inguinal adenopathy. RESPIRATORY: Normal to inspection. Lungs clear to auscultation and percussion. No wheezing, rales, rhonchi or rubs. Normal effort. CARDIOVASCULAR: Regular rate and rhythm. No murmurs, gallops, or rubs. VASCULAR: Carotid, radial, femoral and pedal pulses present bilaterally. No bruits. ABDOMEN: Bowel sounds normoactive. Soft, nontender and non-distended. No hepatosplenomegaly. No masses. GENITOURINARY: No CVA tenderness. No suprapubic fullness or tenderness. No groinadenopathy. No evidence of hernias. INTEGUMENTARY: The skin is unremarkable. No rashes. No suspicious lesions BACK / SPINE: The back is nontender. MUSCULOSKELETAL: Normal musculature, no joint deformities or abnormalities, normal range of motion for all four extremities. EXTREMITIES: No edema, cyanosis or clubbing. No Mary sign. NEUROLOGICAL: Alert and oriented. Cranial nerves intact. No gross motor or sensory deficits. PSYCHIATRIC: No anxiety or evidence of depression. - ECOG Performance Status ECOG Score: 0 Results - Labs Labs: Diagram of Most Recent CBC and CMP 12/16/20 08:50 12/16/20 08:50 Outside Labs: Labs at [facility] laboratory: 05/16/2021: White blood cells 6700, hemoglobin 14.1, hematocrit 44.4, platelet count 555,000 04/13/2020: White blood cells 9200, hemoglobin 14.3, hematocrit 44.4, platelet count 513,000 01/07/2020: White blood cells 6100, hemoglobin 13.9, hematocrit 43.8, platelet count 465,000 - Impressions No recent imaging for review. Defer CT to assess baseline spleen size prior to therapy in July 2021. - Other Results Results/Comments: Date of Service: 01/27/21 ECH/ECH echo transthoracic: PALPITATIONS Copies to: Harmony Elaine MD, FACC Zeus Lamas DO~ BSA: 1.9 m2 HR: 72 Reason For Study: PALPITATIONS History: Murmur. Family history: . Interpretation Summary The left ventricular size, thickness and function are normal The left ventricular wall motion is normal. Ejection Fraction = 60-65%. There is no prior echocardiogram noted for this patient. Normal transthoracic echocardiogram. Procedure/Quality: A two-dimensional transthoracic echocardiogram with color flow and Doppler was performed. The study was technically good in quality. There is no prior echocardiogram noted for this patient. Left Ventricle: The left ventricular size, thickness and function are normal. Ejection Fraction = 60-65%. The left ventricular wall motion is normal. Left Atrium: The left atrium appears normal in size. The atrial septum appears normal. Right Atrium: The right atrium appears normal in size. Right Ventricle: The right ventricular size, thickness and function are normal. Aortic Valve: The aortic valve is normal in structure and function. No aortic regurgitation is present. Mitral Valve: The mitral valve is normal in structure and function. There is no mitral regurgitation noted. Tricuspid Valve: The tricuspid valve is normal in structure and function. No tricuspid regurgitation. Pulmonic Valve: The pulmonic valve is normal in structure and function. Arteries: The aortic root is normal size. Pericardium/Pleura: No pericardial effusion seen. There is no pleural effusion. IVC/Hepatic Viens: The inferior vena cava is normal in size, with a normal collapsibility index. Date of Service: 01/27/21 CA/CA cardiac event monitor: palpitations Copies to: Zeus Lamas DO~ HISTORY: A 60-year-old healthy female with longstanding history of intermittentpalpitations and faster heartbeats at night suspicious for SVT. Event monitor was performed, a total of 16 transmissions were noted. No diary was returned. The rhythm was sinus throughout with first degree AV block. No arrhythmias noted. IMPRESSION: Time monitored: 12 days 17 hours 21 minutes. Test terminated prematurely due to intolerance of patches. The prescription was for 30 days of monitoring. No arrhythmias were noted during testing period. No diary was returned. No symptoms noted on monitoring. Transcribed By: ELIZABETH 03/17/21 2844 Dictated By: Zeus Lamas DO 03/16/21 4469 Assessment and Plan - TNM Staging Staging: Essential thrombocytosis, high risk (age >60, JAK2 mutation) (1) Essential thrombocytosis This is a now 61 year old female referred in May 2020 for mild thrombocytosis with normal hemoglobin and white blood cells. No history of splenectomy, chronic infection, or known chronic inflammation. She hansen normal iron studies and a normal CRP (a sister has RA--STEPHANIE and RF returned negative). We reviewed results of BCR/ABL to r/o CML (-), CALR (-), and MPL (-). However, the patient has 8.57% JAK2 V617F mutation which in addition to her thrombocytosis greater than 460,000 and absence of criteria for polycythemia vera or other secondary causes of thrombosis would potentially meet the diagnostic criteria of essentialthrombocythemia. At that time we agreed that she does not require bone marrow aspiration biopsy for further evaluation nor did she meet any indications for active therapy. Low-dose aspirin for thrombosis prevention 81 mg daily due to age 60. Testing for acquired von Willebrand's disease returned negative. We discussed common features such as weight loss, night sweats, early satiety, abdominal discomfort, and other laboratory anomaly such changes leukocytosis and worseningthrombocytosis that may meet criteria for therapy with hydroxyurea in the future. She expressed understanding and will continue to follow up with me every 3-6 months. No indication for cytoreduction at that time. --At followup 05/19/2021--she is now >60 and has rising platelet count to 555,000. No thromboembolic disease, constitutional symptoms, or vasomotor phenomena such as erythromelalgia. I recommended bone marrow biopsy now that she meets high risk disease due to JAK2 with age > 60. She wishes to defer thisto July 2021 in absence of symptoms. If she meets all major criteria for ET diagnosis hat that time, we may consider cytoreduction (discussed options of hydroxyurea, peg IF ramon-2b, or anagrelide). She is given a copy of NCCN guidelines for diagnostic criteria and goals of cytoreduction. We will set up CT Abdomen/Pelvis in July 2021 as baseline for measurement of liver and spleen size and CBC with bone marrow biopsy at that time. This is a moderate complexity visit over 52 minutes to review exam and laboratories and review diagnostic criteria, workup , and indications for therapy for essential thrombocythemia, now high risk. - Time with Patient Time Spent with Patient (Follow Up Visit): Less than 20 minutes Coordination of Care & Counseling Time: Greater than 50% of time spent with patient was for coordination of care (as documented) and [id number] counseling of patient and/or family. Dictated By: Rosa Romo MD DD/ 33 Signed By: <Electronically signed by MD Rosa Romo> 05/19/211947 [facility] Work Phone: 1(723) 249-553010-21-2021 NoteHNO ID: [id number] Author: Nikita Reyes MD Service: ? Author Type: Physician Type: Progress Notes Filed: 03/17/2021 5:31 PM Note Text: REFERRING/OTHER PHYSICIANS: Zeus Lamas DO (PCP/IM) CHIEF COMPLAINT: Gloria Allen is a 60 year old female referred for palpitations. HISTORY OF PRESENT ILLNESS: Gloria Allen presents to establish care with cardiology due to complaints of palpitations. She was recently diagnosed with essential thrombocytosis. She states she was told she had a heart murmur 30 years ago when she had noted palpitations, and she was advised to have serial echoes every 5 years. She had 2 echoes several years ago and was told there was no regurgitation. She began noticing increasing palpitations over the past year. She notices them when she falls asleep, and the palpitations wake her up. She feels runs of very rapid beats which last under 10-15 seconds. She bears down or coughs and it always successfully terminates the rhythm. These episodes occur about 3 times a week, without any concurrent symptoms. She does not note any triggers or precipitating factors. She never had any sustained rhythm nor had to seek emergency care. She wore a [employer] event monitor for 12 days in January which showed average HR 66 bpm, low HR 50 bpm, high HR 120 bpm, no AF, <1% PAC burden, <1% PVC burden. Diary entries of palpitations correlated with SR, SB, and first degree block. She has had no chest pain, shortness of breath, orthopnea, PND, edema, syncope, nearsyncope, or lightheadedness. PROBLEM LIST AND PAST HISTORY: Palpitations Palpitations for 30 yrs, increased at night over 2020, notices when falling asleep and wake her up Has runs of very rapid beats which last under 10-15 secs, terminating with bearing down or coughing Occur 3x/week Wore [employer] event monitor for 12 days in 01/2021. Palpitations correlated with SR, SB, 1AVB. Epigastric pain Essential thrombocytosis Asthma (when exposed to animals/allergens) Basal cell cancer s/p excision bilateral arms S/p C sections x 3 S/p exploratory lap in her 40's, removal scar tissue ALLERGIES/SENSITIVITIES: None. FAMILY HISTORY: Father 93 aortic stenosis, CML. Mother living 93 dementia. Sister living 72 Melanoma. Sister living 69 RA. 2 brothers , HLD, A AND W. PGF 50s with a stroke. PGM 102. MGM late 80s edema. MGF 90s. No sudden deaths, atrial fibrillation. 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 , 3 children, 1 grandchild. Lives in [place], [place] Habits: Tobacco: none. Alcohol: 1 drink 4-5 days per week. Caffeine: 2-3 C coffee, occasional tea in the winter, One diet coke monthly. Herbals/Supplements: turmeric, vitamins C and D, magnesium. Exercise: [employer] 3-4 times weekly, walks, floor exercises, light weights. REVIEW OF SYSTEMS: ENDO: No hypertension, diabetes, thyroid disease, hyperlipidemia. SKIN: no rashes. HEENT: no headaches, sinusitis, changes in vision or hearing. RESP: no cough, COPD, or sleep apnea; see HPI. CVS: see HPI. No history of claudication, peripheral vascular disease, deep venous thrombosis, pulmonary embolism, cardiac arrest. GI: no nausea, vomiting, diarrhea, constipation, melena, hematochezia. : no abnormal bleeding, dysuria. MS: No arthritis. NEURO: No CVA, TIA, numbness, weakness, paresthesias. + basal cell cancer arms. General, constitutional: Weight loss or gain- No, Fever or chills-No, Weakness-No, Trouble sleeping-+. Head, Eyes, Ears, Mouth: Headache, head injury-No, Glasses or contact lenses-+, Pain-No, Impaired vision-+, Decreased hearing-No, Ringing in ears-No, Nose bleeds-No, Dental difficulties-No, Bleeding gums-No, Dentures-No. Neck: Swelling-No, Pain-No, Stiffness-No. Respiratory: Cough-No, Spitting up blood-No, Shortness of breath-No, Wheezing or asthma-No. Musculoskeletal: Muscle or joint pain or stiffness-+, Joint swelling-No. Gastrointestinal: Difficulty swallowing-No, Heartburn-+, Change in bowel habits-No, Blood in stool, Dark black stools-No. Neurological/Psychiatric: Weakness, paralysis-No, Numbness-No, Tingling-+, Tremor-No, Nervousness or anxiety-No, Depressed mood-No, Memory loss-No. Skin: Rash-No, Itching-No. Hematological: Easy bruising-No, Easy bleeding-No. Endocrine: Heat or cold intolerance-No, Excessive sweating-No, Frequent urination-No, Frequent thirst-No. MEDICATIONS: Current Outpatient Medications Medication Sig - aspirin, enteric coated (ASPIRIN, ENTERIC COATED) 81 mg EC tablet Take 81 mg by mouth once daily. - cholecalciferol, vitamin D3, (VITAMIN D3 ORAL) Take 1,000 Units by mouth once daily. - ascorbic acid (VITAMIN C ORAL) Take 500 mg by mouth once daily. - loratadine (CLARITIN) 10 mg tablet Take 10 mg by mouth once daily. - magnesium oxide (MAG-OX) 400 mg (241.3 mg magnesium) tablet Take 400 mg by mouth once daily. - acetaminophen (TYLENOL) 500 mg tablet T (more content not included)... [facility]08-03-2021 Progress note Author Rosa Romo [facility] December 28, 2020 7:12am Note Date/Time December 27, 2020 3:4 6pm [facility] [place] [address] Hem/Onc Follow Up Note - OP Signed Patient: Gloria Allen MR#: [id number] : 1960 Acct:[id number] Age/Sex: 60 / F Type: REG RCR Copies to: Zeus Lamas DO~ Subjective Date/Time of Service: Date of Service: 12/27/2020 Time of Service: 15:46 Chief Complaint: Patient is here today for a 3 month follow up appointment with Essential Thrombocytosis and to go over labs. No new concerns. HPI: 12/27/2020: Gloria has no new symptoms--no thrombosis history. Platelet count stable at 480,000. No erythromelalgia, headaches, visual changes or dizziness. Continues aspirin 81 mg daily. She remains in low risk group--no indications for cytoreduction, still low risk. Followup in 4 months with CBC--will recheck labs and exam at that time. 09/13/2020: Gloria returns for 3 month followup of Essential Thrombocytosis. She has prior JAK2 mutation with mild thrombocytosis--I decided against rechecking JAK2 level as she will continue observation on low dose aspirin as long as platelet count is less that 550-600,000. She denies erythromelalgia, headaches, or dizziness. We will continue every 3 month labs and followup (may extend followup to 6 months if clinically stable over the next 3 visits). 06/14/2020: Noted follow-up labs from 05/31/2020 to evaluate for elevated platelet counts. Platelets returned at 166,000 with normal hemoglobin 14.2 blood cell count 8900. Serum iron profile normal iron saturation 30% and ferritin 45.4. Normal C-reactive protein less than 0.5 and negative STEPHANIE and rheumatoid factor screen. Testing for JAK2 V617F mutation returned +8.57% with other JAK2 exons 12 through 14, CALR, MPL, and translocation (9;22) negative. I reviewed NCCN criteria for myeloproliferative neoplasm diagnosis and follow-up with the patient. She currently does not have any symptoms concerning for active treatment of myeloproliferative neoplasm, no splenomegaly, and she meets 3 majorcriteria 1 minor criteria (absence of reactive causes cytosis) for myeloproliferative neoplasm essential thrombocytosis. At this time there is no indication for bone marrow aspiration biopsy. The only other work-up that she requires is testing for acquired von Willebrand's disease with PT/PTT, von Willebrand factor antigen and activity and factor VIIIa level. She still meets low risk criteria at age 60 with absence of thrombosis, however she may benefit from low-dose aspirin if von Willebrand screen is negative. I will contact her with the results of von Willebrand's testing in about 2 weeks. She will follow-up with me every 3 months for the first 2 visits and if no evidence of progression or requirements for active therapy I will follow her every 4 months thereafter. At her 6-month visit I will recheck her JAK2 V617F mutation percentage to see if this appears to be progressing over time. This is a moderate complexity visit over 30 minutes to discuss complex testing, staging, and criteria for therapy as well as written materials from NCCN regarding symptoms and follow-up. PREVIOUS HISTORY: This is a 60 year old lady in excellent health who was found on recent labs to have mild thrombocytosis. No prior h/o abnormal blood counts--she does report prior iron deficiency anemia over 20 years ago, but no recent iron deficiency orbright red blood per rectum. She notes recent hot flashes, burning epigastric pain, and mild constipation. No weight loss. No known history of autoimmune disease or chronic infection. She is concerned that her father had CML, one sister with melanoma, and another with undifferentiated cancer. She is concerned that her epigastric pain could represent malignancy. She agreed to labs today, still showing mild thrombocytosis. I contacted her following her appointment to notify her of results and we will coordinate workupfor essential thrombocytosis or other myeloproliferative disorders. She will return Sunday for BCR/ABL, JAK2 V617M mutation with reflex to exons 12-14, CALR, and MPL. We will review these results at 2 week followup and determine if further workup is required. She will address epigastric pain with you in followup. - Summary of Therapies Summary of Therapies: Observation only. ROS Details: All systems reviewed & no additional complaints except as documented Subjective/ROS - Narrative: CONSTITUTIONAL: Negative for fatigue, negative for fever or night sweats. HEAD AND NECK: Negative for changes in hearing and vision. Negative for mouth ulcers, nasal congestion and nasal drainage. PULMONARY: Negative for chest pain, cough and dyspnea. CARDIOVASCULAR: Negative for claudication and irregular heartbeat/palpitations--currently followed by cardiology for workup of dysrhythmia. GASTROINTESTINAL: Positive for epigastric abdominal pain as per HPI, + intermittent constipation, decreased appetite. No diarrhea, nausea or vomiting. GENITOURINARY: Negative for dysuria and hematuria. ENDOCRINE: Negative for cold intolerance and positive for recent heat intolerance. Post menopausal about 10 years. CENTRAL NERVOUS SYSTEM: Negative for gait disturbance and headache. No motor orsensory deficits. PSYCHIATRIC: Negative for anxiety or depression. DERMATOLOGICAL: Negative for pruritus and rash. Negative for suspicious skin lesions. MUSCULOSKELETAL: Negative for back pain and bone/joint symptoms. HEMATOLOGICAL: Negative for bleeding and easy bruising. Negative for history of transfusion or thromboembolic disease (no DVT, no PE, No stroke or TIA). ALLERGY: Negative for environmental allergies and food allergies. PMF - History Attestation statement: The following information was validated with the patient. Source: Old Records Reviewed - Medical History Medical History: Medical History (Last Reviewed 12/28/20 @ 07:08 by Rosa Romo MD) delivery delivered - Surgical History Surgical History: Surgical History (Last Reviewed 12/28/20 @ 07:08 by Rosa Romo MD) [place] teeth removed - Family History Family History: Family History (Last Reviewed 12/28/20 @ 07:08 by Rosa Romo MD) Mother Dementia Father Aortic valvar stenosis Father CMML (chronic myelomonocytic leukemia) Sister Melanoma - Social History Smoking Status: Never smoker Substance Use Type: None Home Medications & Allergies Allergies No Known Allergies Allergy (Verified 12/27/20 15:38) Home Medications ascorbic acid (vitamin C) 500 mg capsule,extended release (Vitamin C) 500 mg PO DAILY 02/06/18 [History Confirmed 12/27/20] cholecalciferol (vitamin D3) 50 mcg (2,000 unit) tablet (Vitamin D3) 1 tab PO DAILY 02/06/18 [History Confirmed 12/27/20] loratadine 10 mg tablet (Claritin) 10 mg PO DAILY PRN 02/06/18 [History Confirmed 12/27/20] magnesium 250 mg tablet 250 mg PO DAILY 02/06/18 [History Confirmed 12/27/20] acetaminophen 325 mg tablet (Tylenol) 325 mg PO ONCE 05/31/20 [History Confirmed 12/27/20] famotidine 20 mg tablet (Pepcid) 20 mg PO QHS 05/31/20 [History Confirmed 12/27/20] aspirin 81 mg tablet,delayed release 81 mg PO DAILY 09/13/20 [History Confirmed 12/27/20] Objective - Height/Weight Height/Weight: Height 5 ft 8 in Weight 78.471 kg - Vital Signs Vital Signs: 12/27/20 15:39 Pulse Rate [Left Brachial] 60 Respiratory Rate 20 Blood Pressure [Left Arm] 136/72 02 Sat by Pulse Oximetry 96 - Emotional Needs Assessment Emotional Needs Assessment: Emotional Needs Identified? No Physical Exam Narrative: CONSTITUTIONAL: The patient is in no acute distress. HEAD / FACE: Normocephalic. EYES: Conjunctivae and lids are benign in appearance. Ocular movement intact. EARS: Hearing grossly intact. NOSE / MOUTH / THROAT: Nose, mouth, tongue and oropharynx are benign in appearance. No signs of inflammation. NECK / THYROID: Neck is supple. Thyroid is symmetrical, without thyromegaly, masses or palpable nodules. LYMPHATIC: No palpable cervical, supraclavicular, axillary, or inguinal adenopathy. RESPIRATORY: Normal to inspection. Lungs clear to auscultation and percussion. No wheezing, rales, rhonchi or rubs. Normal effort. CARDIOVASCULAR: Regular rate and rhythm. No murmurs, gallops, or rubs. VASCULAR: Carotid, radial, femoral and pedal pulses present bilaterally. No bruits. ABDOMEN: Bowel sounds normoactive. Soft, nontender and non-distended. No hepatosplenomegaly. No masses. GENITOURINARY: No CVA tenderness. No suprapubic fullness or tenderness. No groinadenopathy. No evidence of hernias. INTEGUMENTARY: The skin is unremarkable. No rashes. No suspicious lesions BACK / SPINE: The back is nontender. MUSCULOSKELETAL: Normal musculature, no joint deformities or abnormalities, normal range of motion for all four extremities. EXTREMITIES: No edema, cyanosis or clubbing. No Mary sign. NEUROLOGICAL: Alert and oriented. Cranial nerves intact. No gross motor or sensory deficits. PSYCHIATRIC: No anxiety or evidence of depression. - ECOG Performance Status ECOG Score: 0 Results - Labs Labs: Diagram of Most Recent CBC and CMP 12/16/20 08:50 12/16/20 08:50 - Impressions No new imaging for review. Assessment and Plan - TNM Staging Staging: Essential thrombocytosis, low risk (1) Essential thrombocytosis This is a 60 year old female referred in May 2020 for mild thrombocytosis with normal hemoglobin and white blood cells. No history of splenectomy, chronic infection, or known chronic inflammation. She has normal iron studies and a normal CRP (a sister has RA--STEPHANIE and RF returned negative). We reviewed resultsof BCR/ABL to r/o CML (-), CALR (-), and MPL (-). As noted in HPI however, the patient has 8.57% JAK2 V617F mutation which in addition to her thrombocytosis greater than 460,000 and absence of criteria for polycythemia vera or other secondary causes of thrombosis would meet the diagnostic criteria of essential thrombocythemia. At this time we agreed that she does not require bone marrow aspiration biopsy for further evaluation nor does she meet any indications for active therapy. Low-dose aspirin for thrombosis prevention 81 mg daily due to age >60. Testing for acquired von Willebrand's disease returned negative. We discussed common features such as weight loss, night sweats, early satiety, abdominal discomfort, and other laboratory anomaly such changes leukocytosis and worseningthrombocytosis that may meet criteria for therapy with hydroxyurea in the future. She expressed understanding and will continue to follow up with me every 3-6 months (next Apr 2021), sooner if new issues arise. No indication forcytoreduction based on current labs or exam. This is a low complexity visit over 15 minutes to review exam and laboratories and review indications for therapy for essential thrombocythemia, low risk. - Time with Patient Time Spent with Patient (Follow Up Visit): Less than 20 minutes Coordination of Care & Counseling Time: Greater than 50% of time spent with patient was for coordination of care (as documented) and [id number] counseling of patient and/or family. Dictated By: Rosa Romo MD DD/ 1545 Signed By: <Electronically signed by MD Rosa Romo> 12/28/20 0712 [facility] Work Phone: 1(345) 595-379204-20-2021 Progress note Author Rosa Romo [facility] September 14, 2020 7:40pm Note Date/Time September 13, 2020 4:0 3pm [facility] [place] [address] Hem/Onc Follow Up Note - OP Signed Patient: Gloria Allen MR#: [id number] : 1960 Acct:[id number] Age/Sex: 60 / F Type: REG RCR Copies to: Zeus LamasDO~ Subjective Date/Time of Service: Date of Service: 09/13/2020 Time of Service: 15:54 Chief Complaint: Patient is here today for 3 month follow up visit for EssentialThrombocytosis. She has labs to review. No new concerns HPI: 09/13/2020: Gloria returns for 3 month followup of Essential Thrombocytosis. She has prior JAK2 mutation with mild thrombocytosis--I decided against rechecking JAK2 level as she will continue observation on low dose aspirin as long as platelet count is less that 550-600,000. She denies erythromelalgia, headaches, or dizziness. We will continue every 3 month labs and followup (may extend followup to 6 months if clinically stable over the next 3 visits). 06/14/2020: Noted follow-up labs from 05/31/2020 to evaluate for elevated platelet counts. Platelets returned at 166,000 with normal hemoglobin 14.2 blood cell count 8900. Serum iron profile normal iron saturation 30% and ferritin 45.4. Normal C-reactive protein less than 0.5 and negative STEPHANIE and rheumatoid factor screen. Testing for JAK2 V617F mutation returned +8.57% with other JAK2 exons 12 through 14, CALR, MPL, and translocation (9;22) negative. I reviewed NCCN criteria for myeloproliferative neoplasm diagnosis and follow-up with the patient. She currently does not have any symptoms concerning for active treatment of myeloproliferative neoplasm, no splenomegaly, and she meets 3 majorcriteria 1 minor criteria (absence of reactive causes cytosis) for myeloproliferative neoplasm essential thrombocytosis. At this time there is no indication for bone marrow aspiration biopsy. The only other work-up that she requires is testing for acquired von Willebrand's disease with PT/PTT, von Willebrand factor antigen and activity and factor VIIIa level. She still meets low risk criteria at age 60 with absence of thrombosis, however she may benefit from low-dose aspirin if von Willebrand screen is negative. I will contact her with the results of von Willebrand's testing in about 2 weeks. She will follow-up with me every 3 months for the first 2 visits and if no evidence of progression or requirements for active therapy I will follow her every 4 months thereafter. At her 6-month visit I will recheck her JAK2 V617F mutation percentage to see if this appears to be progressing over time. This is a moderate complexity visit over 30 minutes to discuss complex testing, staging, and criteria for therapy as well as written materials from [facility] regarding symptoms and follow-up. PREVIOUS HISTORY: This is a 60 year old lady in excellent health who was found on recent labs to have mild thrombocytosis. No prior h/o abnormal blood counts--she does report prior iron deficiency anemia over 20 years ago, but no recent iron deficiency orbright red blood per rectum. She notes recent hot flashes, burning epigastric pain, and mild constipation. No weight loss. No known history of autoimmune disease or chronic infection. She is concerned that her father had CML, one sister with melanoma, and another with undifferentiated cancer. She is concerned that her epigastric pain could represent malignancy. She agreed to labs today, still showing mild thrombocytosis. I contacted her following her appointment to notify her of results and we will coordinate workupfor essential thrombocytosis or other myeloproliferative disorders. She will return Sunday for BCR/ABL, JAK2 V617M mutation with reflex to exons 12-14, CALR,and MPL. We will review these results at 2 week followup and determine if further workup is required. She will address epigastric pain with you in followup. - Summary of Therapies Summary of Therapies: Observation only. ROS Details: All systems reviewed & no additional complaints except as documented Subjective/ROS - Narrative: CONSTITUTIONAL: Negative for fatigue, negative for fever or night sweats. HEAD AND NECK: Negative for changes in hearing and vision. Negative for mouth ulcers, nasal congestion and nasal drainage. PULMONARY: Negative for chest pain, cough and dyspnea. CARDIOVASCULAR: Negative for claudication and irregular heartbeat/palpitations. GASTROINTESTINAL: Positive for epigastric abdominal pain as per HPI, + intermittent constipation, decreased appetite. No diarrhea, nausea or vomiting. GENITOURINARY: Negative for dysuria and hematuria. ENDOCRINE: Negative for cold intolerance and positive for recent heat intolerance. Post menopausal about 10 years. CENTRAL NERVOUS SYSTEM: Negative for gait disturbance and headache. No motor orsensory deficits. PSYCHIATRIC: Negative for anxiety or depression. DERMATOLOGICAL: Negative for pruritus and rash. Negative for suspicious skin lesions. MUSCULOSKELETAL: Negative for back pain and bone/joint symptoms. HEMATOLOGICAL: Negative for bleeding and easy bruising. Negative for history of transfusion or thromboembolic disease (no DVT, no PE, No stroke or TIA). ALLERGY: Negative for environmental allergies and food allergies. [facility] - History Attestation statement: The following information was validated with the patient. Source: Old Records Reviewed - Medical History Medical History: Medical History (Last Reviewed 09/14/20 @ 19:34 by Rosa Romo MD) delivery delivered - Surgical History Surgical History: Surgical History (Last Reviewed 09/14/20 @ 19:34 by Rosa Romo MD) [place] teeth removed - Family History Family History: Family History (Last Reviewed 09/14/20 @ 19:34 by Rosa Romo MD) Mother Dementia Father Aortic valvar stenosis Father CMML (chronic myelomonocytic leukemia) Sister Melanoma - Social History Smoking Status: Never smoker Substance Use Type: None Home Medications & Allergies Allergies No Known Allergies Allergy (Verified 09/13/20 15:41) Home Medications ascorbic acid (vitamin C) [Vitamin C] 500 mg PO DAILY 02/06/18 [History Confirmed 09/13/20] cholecalciferol (vitamin D3) [Vitamin D3] 1 tab PO DAILY 02/06/18 [History Confirmed 09/13/20] loratadine [Claritin] 10 mg PO DAILY PRN 02/06/18 [History Confirmed 09/13/20] magnesium 250 mg PO DAILY 02/06/18 [History Confirmed 09/13/20] acetaminophen [Tylenol] 325 mg PO ONCE 05/31/20 [History Confirmed 09/13/20] famotidine [Pepcid] 20 mg PO QHS 05/31/20 [History Confirmed 09/13/20] aspirin [Aspir-81] 81 mg PO DAILY 09/13/20 [History Confirmed 09/13/20] Objective - Height/Weight Height/Weight: Height 5 ft 8 in Weight 76.657 kg - Vital Signs Vital Signs: 09/13/20 15:41 Temperature 97.8 F Pulse Rate [Left Brachial] 58 L Respiratory Rate 20 Blood Pressure [Left Arm] 136/85 02 Sat by Pulse Oximetry 99 - Emotional Needs Assessment Emotional Needs Assessment: Emotional Needs Identified? No Physical Exam Narrative: CONSTITUTIONAL: The patient is in no acute distress. HEAD / FACE: Normocephalic. EYES: Conjunctivae and lids are benign in appearance. Ocular movement intact. EARS: Hearing grossly intact. NOSE / MOUTH / THROAT: Nose, mouth, tongue and oropharynx are benign in appearance. No signs of inflammation. NECK / THYROID: Neck is supple. Thyroid is symmetrical, without thyromegaly, masses or palpable nodules. LYMPHATIC: No palpable cervical, supraclavicular, axillary, or inguinal adenopathy. RESPIRATORY: Normal to inspection. Lungs clear to auscultation and percussion. No wheezing, rales, rhonchi or rubs. Normal effort. CARDIOVASCULAR: Regular rate and rhythm. No murmurs, gallops, or rubs. VASCULAR: Carotid, radial, femoral and pedal pulses present bilaterally. No bruits. ABDOMEN: Bowel sounds normoactive. Soft, nontender and non-distended. No hepatosplenomegaly. No masses. GENITOURINARY: No CVA tenderness. No suprapubic fullness or tenderness. No groinadenopathy. No evidence of hernias. INTEGUMENTARY: The skin is unremarkable. No rashes. No suspicious lesions BACK / SPINE: The back is nontender. MUSCULOSKELETAL: Normal musculature, no joint deformities or abnormalities, normal range of motion for all four extremities. EXTREMITIES: No edema, cyanosis or clubbing. No Mary sign. NEUROLOGICAL: Alert and oriented. Cranial nerves intact. No gross motor or sensory deficits. PSYCHIATRIC: No anxiety or evidence of depression. - ECOG Performance Status ECOG Score: 0 Results - Labs Labs: Diagram of Most Recent CBC and CMP 09/10/20 13:07 09/10/20 13:07 Labs - Last 7 Days 09/10/20 13:07: PHA Creatinine Clear 70.44, Sodium 140, Potassium 5.3 H, Chloride 102, Carbon Dioxide 30.5 H, BUN 14, Creatinine 0.93, Est GFR ( Amer) > 60, Est GFR (Non-Af Amer) > 60, Glucose 105 H, Calcium 10.4 H, Total Bilirubin 1.6 H, AST 24, ALT 19, Alkaline Phosphatase 55, Total Protein 7.0, Albumin 4.6, Globulin 2.4, Albumin/Globulin Ratio 1.9 09/10/20 13:07: Corrected WBC 8.6, Uncorrected WBC Count 8.6, RBC 4.92, Hgb 14.5, Hct 42.8, MCV 87.0, MCH 29.4, MCHC 33.8, RDW 14.8, Plt Count 462 H, MPV 8.6, Neut % (Auto) 70.2, Lymph % (Auto) 19.6, Pope % (Auto) 7.3, Eos % (Auto) 2.3, Baso % (Auto) 0.6, Neut # (Auto) 6.0, Lymph # (Auto) 1.7, Pope # (Auto) 0.6, Eos # (Auto) 0.2, Baso # (Auto) 0.1, Nucleated RBC % (auto) 0.0 - Impressions No imaging for review. Assessment and Plan - TNM Staging Staging: Essential thrombocytosis, low risk (1) Essential thrombocytosis This is a 60 year old female recently found to have mild thrombocytosis with normal hemoglobin and white blood cells. No history of splenectomy, chronic infection, or known chronic inflammation. She has normal iron studies and a normal CRP (a sister has RA--STEPHANIE and RF returned negative). We reviewed resultsof BCR/ABL to r/o CML (-), CALR (-), and MPL (-). As noted in HPI however, the patient has 8.57% JAK2 V617F mutation which in addition to her thrombocytosis greater than 460,000 and absence of criteria for polycythemia vera or other secondary causes of thrombosis would meet the diagnostic criteria of essential thrombocythemia. At this time we agreed that she does not require bone marrow aspiration biopsy for further evaluation nor does she meet any indications for active therapy. Low-dose aspirin for thrombosis prevention 81 mg daily due to age >60. Testing for acquired von Willebrand's disease returned negative. We discussed common features such as weight loss, night sweats, early satiety, abdominal discomfort, and other laboratory anomaly such changes leukocytosis and worseningthrombocytosis that may meet criteria for therapy with hydroxyurea in the future. She expressed understanding and will continue to follow up with me every 3-6 months, sooner if new issues arise. No indication for cytoreduction based on current labs. This is a low complexity visit over 15 minutes to review exam and laboratories and review indications for therapy for essential thrombocythemia, low risk. (2) Epigastric pain Recent epigastric pain and decreased appetite. She may have EGD and imaging (CTAbdomen/Pelvis) for symptoms with her primary physician if indicated. At this time I have deferred evaluation of spleen with imaging, but may reconsider if ongoing symptoms. - Time with Patient Time Spent with Patient (Follow Up Visit): Less than 20 minutes Coordination of Care & Counseling Time: Greater than 50% of time spent with patient was for coordination of care (as documented) and [id number] counseling of patient and/or family. Dictated By: Rosa Romo MD DD/ [id number] Signed By: <Electronically signed by MD Rosa Romo> 09/14/201939 [facility] Work Phone: 1([phone]) 706-964501-18-2021 Progress note Author Rosa Romo [facility] June 14, 2020 4:10pm Note Date/Time June 14, 2020 3 :26pm [facility] [place] [id number] Hem/Onc Follow Up Note - OP Signed Patient: Gloria Allen MR#: [id number] : 1960 Acct:[id number] Age/Sex: 60 / F Type: REG RCR Copies to: Zeus Lamas,DO~ Subjective Date/Time of Service: Date of Service: 06/14/2020 Time of Service: 15:25 Chief Complaint: Patient is here today for a referral from Dr Lamas for Thrombocytosis. HPI: 06/14/2020: Noted follow-up labs from 05/31/2020 to evaluate for elevated platelet counts. Platelets returned at 166,000 with normal hemoglobin 14.2 blood cell count 8900. Serum iron profile normal iron saturation 30% and ferritin 45.4. Normal C-reactive protein less than 0.5 and negative STEPHANIE and rheumatoid factor screen. Testing for JAK2 V617F mutation returned +8.57% with other JAK2 exons 12 through 14, CALR, MPL, and translocation (9;22) negative. I reviewed [facility] criteria for myeloproliferative neoplasm diagnosis and follow-up with the patient. She currently does not have any symptoms concerning for active treatment of myeloproliferative neoplasm, no splenomegaly, and she meets 3 major criteria 1 minor criteria (absence of reactive causes cytosis) for myeloproliferative neoplasm essential thrombocytosis. At this time there is no indication for bone marrow aspiration biopsy. The only other work-up that she requires is testing for acquired von Willebrand's disease with PT/PTT, von Willebrand factor antigen and activity and factor VIIIa level. She still meets low risk criteria at age 60 with absence of thrombosis, however she may benefit from low-dose aspirin if von Willebrand screen is negative. I will contact her with the results of von Willebrand's testing in about 2 weeks. She will follow-up with me every 3 months for the first 2 visits and if no evidence of progression or requirements for active therapy I will follow her every 4 months thereafter. At her 6-month visit I will recheck her JAK2 V617F mutation percentage to see if this appears to be progressing over time. This is a moderate complexity visit over 30 minutes to discuss complex testing, staging, and criteria for therapy as well as written materials from [facility] regarding symptoms and follow-up. PREVIOUS HISTORY: This is a 60 year old lady in excellent health who was found on recent labs to have mild thrombocytosis. No prior h/o abnormal blood counts--she does report prior iron deficiency anemia over 20 years ago, but no recent iron deficiency orbright red blood per rectum. She notes recent hot flashes, burning epigastric pain, and mild constipation. No weight loss. No known history of autoimmune disease or chronic infection. She is concerned that her father had CML, one sister with melanoma, and another with undifferentiated cancer. She is concerned that her epigastric pain could represent malignancy. She agreed to labs today, still showing mild thrombocytosis. I contacted her following her appointment to notify her of results and we will coordinate workupfor essential thrombocytosis or other myeloproliferative disorders. She will return Sunday for BCR/ABL, JAK2 V617M mutation with reflex to exons 12-14, CALR,and MPL. We will review these results at 2 week followup and determine if further workup is required. She will address epigastric pain with you in followup. ROS Details: All systems reviewed & no additional complaints except as documented Subjective/ROS - Narrative: CONSTITUTIONAL: Negative for fatigue, negative for fever or night sweats. HEAD AND NECK: Negative for changes in hearing and vision. Negative for mouth ulcers, nasal congestion and nasal drainage. PULMONARY: Negative for chest pain, cough and dyspnea. CARDIOVASCULAR: Negative for claudication and irregular heartbeat/palpitations. GASTROINTESTINAL: Positive for epigastric abdominal pain as per HPI, + intermittent constipation, decreased appetite. No diarrhea, nausea or vomiting. GENITOURINARY: Negative for dysuria and hematuria. ENDOCRINE: Negative for cold intolerance and positive for recent heat intolerance. Post menopausal about 10 years. CENTRAL NERVOUS SYSTEM: Negative for gait disturbance and headache. No motor orsensory deficits. PSYCHIATRIC: Negative for anxiety or depression. DERMATOLOGICAL: Negative for pruritus and rash. Negative for suspicious skin lesions. MUSCULOSKELETAL: Negative for back pain and bone/joint symptoms. HEMATOLOGICAL: Negative for bleeding and easy bruising. Negative for history of transfusion or thromboembolic disease (no DVT, no PE, No stroke or TIA). ALLERGY: Negative for environmental allergies and food allergies. PMF - History Attestation statement: The following information was validated with the patient. Source: Old Records Reviewed - Medical History Medical History: Medical History (Last Reviewed 06/14/20 @ 15:59 by Rosa oRmo MD) delivery delivered - Surgical History Surgical History: Surgical History (Last Reviewed 06/14/20 @ 15:59 by Rosa Romo MD) [place] teeth removed - Family History Family History: Family History (Last Reviewed 06/14/20 @ 15:59 by Rosa Romo MD) Mother Dementia Father Aortic valvar stenosis Father CMML (chronic myelomonocytic leukemia) Sister Melanoma - Social History Smoking Status: Never smoker Substance Use Type: None Home Medications & Allergies Allergies No Known Allergies Allergy (Verified 05/31/20 13:09) Home Medications ascorbic acid (vitamin C) [Vitamin C] 500 mg PO DAILY 02/06/18 [History Confirmed 05/31/20] cholecalciferol (vitamin D3) [Vitamin D3] 1 tab PO DAILY 02/06/18 [History Confirmed 05/31/20] loratadine [Claritin] 10 mg PO DAILY PRN 02/06/18 [History Confirmed 05/31/20] magnesium 250 mg PO DAILY 02/06/18 [History Confirmed 05/31/20] acetaminophen [Tylenol] 325 mg PO ONCE 05/31/20 [History Confirmed 05/31/20] famotidine [Pepcid] 20 mg PO QHS 05/31/20 [History Confirmed 05/31/20] Objective - Height/Weight Height/Weight: Height 5 ft 8 in Weight 77.564 kg - Vital Signs Vital Signs: Signs deferred, here for follow-up laboratory testing Physical Exam Narrative: CONSTITUTIONAL: The patient is in no acute distress. HEAD / FACE: Normocephalic. EYES: Conjunctivae and lids are benign in appearance. Ocular movement intact. EARS: Hearing grossly intact. PSYCHIATRIC: No anxiety or evidence of depression. Exam deferred, please see exam below from original consult 05/31/2020. NOSE / MOUTH / THROAT: Nose, mouth, tongue and oropharynx are benign in appearance. No signs of inflammation. NECK / THYROID: Neck is supple. Thyroid is symmetrical, without thyromegaly, masses or palpable nodules. LYMPHATIC: No palpable cervical, supraclavicular, axillary, or inguinal adenopathy. RESPIRATORY: Normal to inspection. Lungs clear to auscultation and percussion. No wheezing, rales, rhonchi or rubs. Normal effort. CARDIOVASCULAR: Regular rate and rhythm. No murmurs, gallops, or rubs. VASCULAR: Carotid, radial, femoral and pedal pulses present bilaterally. No bruits. ABDOMEN: Bowel sounds normoactive. Soft, nontender and non-distended. No hepatosplenomegaly. No masses. GENITOURINARY: No CVA tenderness. No suprapubic fullness or tenderness. No groinadenopathy. No evidence of hernias. INTEGUMENTARY: The skin is unremarkable. No rashes. No suspicious lesions BACK / SPINE: The back is nontender. MUSCULOSKELETAL: Normal musculature, no joint deformities or abnormalities, normal range of motion for all four extremities. EXTREMITIES: No edema, cyanosis or clubbing. No Mary sign. NEUROLOGICAL: Alert and oriented. Cranial nerves intact. No gross motor or sensory deficits. - ECOG Performance Status ECOG Score: 0 Results - Labs Labs: Diagram of Most Recent CBC and CMP 05/31/20 14:12 Labs - Last 7 Days 06/04/20 10:00: JAK2 V617F +8.5%, JAK2 exons 12 through 14 -, Calreticulin Mutation negative, MPL Mutation Analysis negative, BCR/abl negative, antinuclearantibody screen negative, rheumatoid factor negative - Impressions No imaging for review Assessment and Plan - TNM Staging Staging: Essential thrombocytosis, low risk (1) Essential thrombocytosis This is a 60 year old female recently found to have mild thrombocytosis with normal hemoglobin and white blood cells. No history of splenectomy, chronic infection, or known chronic inflammation. She has normal iron studies and a normal CRP (a sister has RA--STEPHANIE and RF returned negative). She returns today to review results of BCR/ABL to r/o CML (-), CALR (-), and MPL (-). As noted inHPI however, the patient has 8.57% JAK2 V617F mutation which in addition to her thrombocytosis greater than 460,000 and absence of criteria for polycythemia vera or other secondary causes of thrombosis would meet the diagnostic criteria of essential thrombocythemia. At this time we agreed that she does not require bone marrow aspiration biopsy for further evaluation nor does she meet any indications for active therapy. Low-dose aspirin for thrombosis prevention (81 to 100 mg daily) could be initiated but we are sending testing for acquired von Willebrand's disease first and will contact her with results. If she does not have evidence of acquired von Willebrand's disease by PT, PTT, von Willebrand's factor antigen and activity, factor VIIIa levels, then I would have her resume aspirin 81 mg daily. We discussed common features such as weight loss, night sweats, early satiety, abdominal discomfort, and other laboratory anomaly such changes leukocytosis and worsening thrombocytosis that may meet criteria for therapy with hydroxyurea in the future. She expressed understanding and will continue to follow up with me every 3 months, sooner if new issues arise. This is a moderate complexity visit over 30 minutes to review complex laboratories and review indications for therapy for new diagnosis of essential thrombocythemia, low risk. (2) Epigastric pain Recent epigastric pain and decreased appetite. She may have EGD and imaging (CTAbdomen/Pelvis) for symptoms with her primary physician if indicated. At this time I have deferred evaluation of spleen with imaging, but may reconsider if ongoing symptoms. - Time with Patient Coordination of Care & Counseling Time: Greater than 50% of time spent with patient was for coordination of care (as documented) and [id number] counseling of patient and/or family. Dictated By: Rosa Romo MD DD/ [id number] Signed By: <Electronically signed by MD Rosa Romo> 06/14/20 1610 [facility] Work Phone: 1(162) 525-103601-04-2021 Consult note Author Rosa Romo [facility] May 31, 2020 8:56pm Note Date/Time May 31, 2020 1: 29pm [facility] [place] [address] Hem/Onc Consult Note - OP Signed Patient: Gloria Allen MR#: [id number] : 1960 Acct:[id number] Age/Sex: 60 / F Type: REG RCR Copies to: Zeus Lamas DO~ HPI Date/Time of Service: Date of Service: 05/31/2020 Time of Service: 13:00 Referring Provider/PCP: Referring Provider: Zeus Lamas DO PCP: Zeus Lamas DO - History of Present Illness Reason for Consultation: Patient referred for asymptomatic thrombocytosis on 2 recent laboratory measurements. Chief Complaint: Patient is here today for a referral from Dr Lamas for Thrombocytosis. HPI: Dear Dr. Lamas, I had the great pleasure of seeing your patient in consultation. Thank you verymuch for your referral. As you know this is a 60 year old lady in excellent health who was found on recent labs to have mild thrombocytosis. No prior h/o abnormal blood counts--she does report prior iron deficiency anemia over 20 years ago, but no recent iron deficiency or bright red blood per rectum. She notes recent hot flashes, burning epigastric pain, and mild constipation. No weight loss. No known history of autoimmune disease or chronic infection. She is concerned that her father had CML, one sister with melanoma, and another withundifferentiated cancer. She is concerned that her epigastric pain could represent malignancy. She agreed to labs today, still showing mild thrombocytosis. I contacted her following her appointment to notify her of results and we will coordinate workupfor essential thrombocytosis or other myeloproliferative disorders. She will return Sunday for BCR/ABL, JAK2 V617M mutation with reflex to exons 12-14, CALR,and MPL. We will review these results at 2 week followup and determine if further workup is required. She will address epigastric pain with you in followup. [facility] - Medical History Medical History: Medical History (Last Reviewed 05/31/20 @ 20:40 by Rosa Romo MD) delivery delivered - Surgical History Surgical History: Surgical History (Last Reviewed 05/31/20 @ 20:40 by Rosa Romo MD) [place] teeth removed - Family History Family History: Family History (Last Reviewed 05/31/20 @ 20:40 by Rosa Romo MD) Mother Dementia Father Aortic valvar stenosis Father CMML (chronic myelomonocytic leukemia) Sister Melanoma - Social History Smoking Status: Never smoker Substance Use Type: None Home Medications & Allergies Allergies No Known Allergies Allergy (Verified 05/31/20 13:09) Home Medications ascorbic acid (vitamin C) [Vitamin C] 500 mg PO DAILY 02/06/18 [History Confirmed 05/31/20] cholecalciferol (vitamin D3) [Vitamin D3] 1 tab PO DAILY 02/06/18 [History Confirmed 05/31/20] loratadine [Claritin] 10 mg PO DAILY PRN 02/06/18 [History Confirmed 05/31/20] magnesium 250 mg PO DAILY 02/06/18 [History Confirmed 05/31/20] acetaminophen [Tylenol] 325 mg PO ONCE 05/31/20 [History Confirmed 05/31/20] famotidine [Pepcid] 20 mg PO QHS 05/31/20 [History Confirmed 05/31/20] Subjective Data - Diagnosis DIAGNOSIS: 1. Mild thrombocytosis 2. Epigastric pain Subjective/ROS - Narrative: CONSTITUTIONAL: Negative for fatigue, negative for fever or night sweats. HEAD AND NECK: Negative for changes in hearing and vision. Negative for mouth ulcers, nasal congestion and nasal drainage. PULMONARY: Negative for chest pain, cough and dyspnea. CARDIOVASCULAR: Negative for claudication and irregular heartbeat/palpitations. GASTROINTESTINAL: Positive for epigastric abdominal pain as per HPI, + intermittent constipation, decreased appetite. No diarrhea, nausea or vomiting. GENITOURINARY: Negative for dysuria and hematuria. ENDOCRINE: Negative for cold intolerance and positive for recent heat intolerance. Post menopausal about 10 years. CENTRAL NERVOUS SYSTEM: Negative for gait disturbance and headache. No motor orsensory deficits. PSYCHIATRIC: Negative for anxiety or depression. DERMATOLOGICAL: Negative for pruritus and rash. Negative for suspicious skin lesions. MUSCULOSKELETAL: Negative for back pain and bone/joint symptoms. HEMATOLOGICAL: Negative for bleeding and easy bruising. Negative for history of transfusion or thromboembolic disease (no DVT, no PE, No stroke or TIA). ALLERGY: Negative for environmental allergies and food allergies. ROS Details: All systems reviewed & no additional complaints except as documented Objective - Height/Weight Height/Weight: Height 5 ft 8 in Weight 77.564 kg - Vital Signs Vital Signs: 05/31/20 13:21 Temperature 97.2 F L Pulse Rate [Left Brachial] 67 Respiratory Rate 20 Blood Pressure [Left Arm] 146/86 H 02 Sat by Pulse Oximetry 99 - Emotional Needs Assessment Emotional Needs Assessment: Emotional Needs Identified? No Distress Screening Total 0 Physical Exam Narrative: CONSTITUTIONAL: The patient is in no acute distress. HEAD / FACE: Normocephalic. EYES: Pupils are equal and reactive to light. Conjunctivae and lids are benign in appearance. Ocular movement intact. EARS: Hearing grossly intact. NOSE / MOUTH / THROAT: Nose, mouth, tongue and oropharynx are benign in appearance. No signs of inflammation. NECK / THYROID: Neck is supple. Thyroid is symmetrical, without thyromegaly, masses or palpable nodules. LYMPHATIC: No palpable cervical, supraclavicular, axillary, or inguinal adenopathy. RESPIRATORY: Normal to inspection. Lungs clear to auscultation and percussion. No wheezing, rales, rhonchi or rubs. Normal effort. CARDIOVASCULAR: Regular rate and rhythm. No murmurs, gallops, or rubs. VASCULAR: Carotid, radial, femoral and pedal pulses present bilaterally. No bruits. ABDOMEN: Bowel sounds normoactive. Soft, nontender and non-distended. No hepatosplenomegaly. No masses. GENITOURINARY: No CVA tenderness. No suprapubic fullness or tenderness. No groinadenopathy. No evidence of hernias. INTEGUMENTARY: The skin is unremarkable. No rashes. No suspicious lesions BACK / SPINE: The back is nontender. MUSCULOSKELETAL: Normal musculature, no joint deformities or abnormalities, normal range of motion for all four extremities. EXTREMITIES: No edema, cyanosis or clubbing. No Mary sign. NEUROLOGICAL: Alert and oriented. Cranial nerves intact. No gross motor or sensory deficits. PSYCHIATRIC: No anxiety or evidence of depression. - ECOG Performance Status ECOG Score: 0 Results - Labs Labs: 05/31/2020: WBC 8,900; Hg 14.2, Hct 42.7; Platelets 466,000 Serum iron 125; Iron Saturation 30%, Ferritin 45.4; C-reactive protein <0.5 STEPHANIE, RF pending Outside Labs: 04/06/2020: WBC 9,200; Hg 14.3, Hct 44.4, Platelets 513,000; BUN 14, Creat 0.9;TB 1.14, AST 22, ALT 15, AP 66, Ca 10.3, Na 142, K 4.5, TP 7, Alb 4.6 12/29/2019: WBC 6,100; Hg 13.9, Hct 43.8, Platelets 465,000 11/27/2017: WBC 5,900, Hg 13.3, Hct 40.6, Platelets 377,000--ANC 3300 10/22/2015: WBC 5,600; Hg 14, Hct 43.1, Platelets 368,000 - Impressions No recent imaging for review. - Other Results Results/Comments: Colonoscopy 01/2018--No polyps, mild sigmoid diverticulosis Assessment and Plan (1) Thrombocytosis This is a 60 year old female recently found to have mild thrombocytosis with normal hemoglobin and white blood cells. No history of splenectomy, chronic infection, or known chronic inflammation. She has normal iron studies and a normal CRP (a sister has RA--STEPHANIE and RF are pending). She was contacted with results and agrees to return for BCR/ABL to r/o CML, JAK2, CALR, and MPL. Followup results in 2 weeks or sooner as needed. This is a low complexity consult over 45 minutes. I would like to thank you very much for the courtesy of this referral. I will keep you up-to-date with this patient's progress. Should you have any questionsregarding the management of this patient, please do not hesitate to contact me. Sincerely, Rosa Romo MD, FACP Medical Oncology (2) Epigastric pain Recent epigastric pain and decreased appetite. She may have EGD and imaging (CTAbdomen/Pelvis) for symptoms with her primary physician. If no evidence of myeloproliferative neoplasm on labs ordered above, I can facilitate imaging and endoscopy if needed. - Time with Patient Total Time Spent with Patient: 45 min Coordination of Care & Counseling Time: Greater than 50% of time spent with patient was for coordination of care (as documented) and [id number] counseling of patient and/or family. Dictated By: Rosa Romo MD DD/ [id number] Signed By: <Electronically signed by MD Rosa Romo> 05/31/202055 [facility] Work Phone: Evaluation note* Diagnosis Onset Date Resolution Status Thrombocytosis acute Epigastric pain chronic Essential thrombocytosis chr onic Iron deficiency anemia chron ic [facility] Work Phone: Evaluation noteNo assessment information available [facility] Work Phone: Evaluation note* Diagnosis Onset Date Resolution Status Thrombocytosis acute Epigastric pain chronic Essential thrombocytosis chr onic Iron deficiency anemia resol chelly [facility] Work Phone: Progress note Author Rosa Romo [facility] December 24, 2021 4:39pm Note Date/Time December 23, 2021 2:49 pm [facility] [place] [id number] Hem/Onc Follow Up Note - OP Signed Patient: Gloria Allen MR#: [id number] : 1960 Acct:[id number] Age/Sex: 61 / F Type: REG RCR Copies to: Zeus Lamas DO~ Subjective Date/Time of Service: Date of Service: 12/23/2021 Time of Service: 14:48 Chief Complaint: Patient is here today for a follow up visit for essential thrombocytosis and go over labs HPI: 12/23/2021: Here for 3 month followup. She did not notice any change in energy level after iron infusions and platelet count is a little more elevated. We again discussed cytoreduction for elevated platelets > 500,000. She wishes to continue aspirin and we will increase dose from 81 to 160mg daily. We discussedsigns/symptoms of small vessel thrombosis (visual changes, headaches, dizziness,and dyspnea). Will continue followup every 3 months with CBC, CMP, sooner if new symptoms. 09/16/2021: Bone marrow biopsy performed 08/22/2021 due to persistent thrombocytosis with JAK2 mutation. Bone marrow biopsy does show mildly hypocellular marrow for age with megakaryocytic hyperplasia and no significant fibrosis (MF 0-1) most consistent with essential thrombocythemia. She has absent iron stores. Platelets are currently 494,000. Due to absent iron storesand prior intolerance of oral iron due to constipation, I will treat with Injectafer 750mg IV x 2 doses. 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 If platelets < 450,000 at that time, will not treat with cytoreduction and continue to follow every 4 months. 05/19/2021: Gloria is here for 4-month follow-up and had outside labs 05/16/2021 showing persistent elevation of platelet count to 555,000. She denies any constitutional symptoms such as fever, chills, sweats, or recent infections. No history of thrombosis. No erythromelalgia, headaches, visual changes, or dizziness. She had an evaluation for work-up of palpitations with echocardiogram and event monitor in January 2021 which was negative. We discussed NCCN guidelines for diagnosis and therapy recommendations for cytoreduction for essential thrombocytosis. We discussed that she is now considered high risk due to Villa 2 mutation and age over 60. The diagnostic criteria of essential thrombocytosis includes platelet count greater than 450,000, bone marrow biopsy requiring proliferation of megakaryocytic lineage with increased and large mature megakaryocytes and no increase or left shift in neutrophils or erythropoiesis with minor grade 1 increase in reticulin fibers. She also must not meet any diagnostic criteria for CML, PV, PMI, myelodysplasticsyndrome, or other myeloid disorders and have presence of JAK2 mutation (noted on prior peripheral blood studies). Minor criteria is not meeting diagnosis forreactive thrombocytosis with presence of a clonal marker. --Now that her platelet count is 555,000 we did discuss working up essential thrombocytosis with bone marrow biopsy and CT to assess for splenomegaly prior to cytoreductive therapy. She wishes to defer the studies until July 2021 unless new symptoms arise. We will arrange her follow-up at that time and plan for bone marrow biopsy and CT. She may return sooner if new issues arise. 12/27/2020: Gloria has no new symptoms--no thrombosis history. Platelet count stable at 480,000. No erythromelalgia, headaches, visual changes or dizziness. Continues aspirin 81 mg daily. She remains in low risk group--no indications for cytoreduction, still low risk. Followup in 4 months with CBC--will recheck labs and exam at that time. 09/13/2020: Gloria returns for 3 month followup of Essential Thrombocytosis. She has prior JAK2 mutation with mild thrombocytosis--I decided against rechecking JAK2 level as she will continue observation on low dose aspirin as long as platelet count is less that 550-600,000. She denies erythromelalgia, headaches, or dizziness. We will continue every 3 month labs and followup (may extend followup to 6 months if clinically stable over the next 3 visits). 06/14/2020: Noted follow-up labs from 05/31/2020 to evaluate for elevated platelet counts. Platelets returned at 166,000 with normal hemoglobin 14.2 blood cell count 8900. Serum iron profile normal iron saturation 30% and ferritin 45.4. Normal C-reactive protein less than 0.5 and negative STEPHANIE and rheumatoid factor screen. Testing for JAK2 V617F mutation returned +8.57% with other JAK2 exons 12 through 14, CALR, MPL, and translocation (9;22) negative. I reviewed NCCN criteria for myeloproliferative neoplasm diagnosis and follow-up with the patient. She currently does not have any symptoms concerning for active treatment of myeloproliferative neoplasm, no splenomegaly, and she meets 3 majorcriteria 1 minor criteria (absence of reactive causes cytosis) for myeloproliferative neoplasm essential thrombocytosis. At this time there is no indication for bone marrow aspiration biopsy. The only other work-up that she requires is testing for acquired von Willebrand's disease with PT/PTT, von Willebrand factor antigen and activity and factor VIIIa level. She still meets low risk criteria at age 60 with absence of thrombosis, however she may benefit from low-dose aspirin if von Willebrand screen is negative. I will contact her with the results of von Willebrand's testing in about 2 weeks. She will follow-up with me every 3 months for the first 2 visits and if no evidence of progression or requirements for active therapy I will follow her every 4 months thereafter. At her 6-month visit I will recheck her JAK2 V617F mutation percentage to see if this appears to be progressing over time. This is a moderate complexity visit over 30 minutes to discuss complex testing, staging, and criteria for therapy as well as written materials from NCCN regarding symptoms and follow-up. PREVIOUS HISTORY: This is a now 61 year old lady in excellent health who was found on recent labs to have mild thrombocytosis. No prior h/o abnormal blood counts--she does report prior iron deficiency anemia over 20 years ago, but no recent iron deficiency or bright red blood per rectum. She notes recent hot flashes, burning epigastric pain, and mild constipation. No weight loss. No known history of autoimmune disease or chronic infection. She is concerned that her father had CML, one sister with melanoma, and another with undifferentiated cancer. She is concerned that her epigastric pain could represent malignancy. Of note she does report that her grandfather was diagnosed with CMML at age 93 but no other family history of hematologic disorders. She agreed to labs today, still showing mild thrombocytosis. I contacted her following her appointment to notify her of results and we will coordinate workupfor essential thrombocytosis or other myeloproliferative disorders. She will return Sunday for BCR/ABL, JAK2 V617M mutation with reflex to exons 12-14, CALR,and MPL. We will review these results at 2 week followup and determine if further workup is required. She will address epigastric pain with you in followup. - Summary of Therapies Summary of Therapies: Observation only--at 05/19/2021 visit she is now greater than age 60 with platelets 555,000 but requested to defer diagnostic work-up to July. Injectafer 750mg IV x 2 weekly doses order 09/16/2021. ROS Details: All systems reviewed & no additional complaints except as documented Subjective/ROS - Narrative: CONSTITUTIONAL: Mild fatigue, negative for fever or night sweats. HEAD AND NECK: Negative for changes in hearing and vision. Negative for mouth ulcers, nasal congestion and nasal drainage. PULMONARY: Negative for chest pain, cough and dyspnea. CARDIOVASCULAR: Negative for claudication and irregular heartbeat/palpitations--completed workup for dysrhythmia with unremarkable echo and event monitor in 01/2021. GASTROINTESTINAL: Denies abdominal pain, constipation, decreased appetite. No diarrhea, nausea or vomiting. GENITOURINARY: Negative for dysuria and hematuria. ENDOCRINE: Negative for cold intolerance and positive for recent heat intolerance. Post menopausal about 10 years. CENTRAL NERVOUS SYSTEM: Negative for gait disturbance and headache. No motor orsensory deficits. PSYCHIATRIC: Negative for anxiety or depression. DERMATOLOGICAL: Negative for pruritus and rash. Negative for suspicious skin lesions. MUSCULOSKELETAL: Negative for back pain and bone/joint symptoms. HEMATOLOGICAL: Negative for bleeding and easy bruising. Negative for history of transfusion or thromboembolic disease (no DVT, no PE, No stroke or TIA). ALLERGY: Negative for environmental allergies and food allergies. [facility] - History Attestation statement: The following information was validated with the patient. Source: Old Records Reviewed - Medical History Medical History: Medical History (Last Reviewed 12/24/21 @ 16:34 by Rosa Romo MD) delivery delivered - Surgical History Surgical History: Surgical History (Last Reviewed 12/24/21 @ 16:34 by Rosa Romo MD) [place] teeth removed - Family History Family History: Family History (Last Reviewed 12/24/21 @ 16:34 by Rosa Romo MD) Mother Dementia Father Aortic valvar stenosis Father CMML (chronic myelomonocytic leukemia) Sister Melanoma - Social History Smoking Status: Never smoker Substance Use Type: None Home Medications & Allergies Allergies No Known Allergies Allergy (Verified 12/23/21 14:42) Home Medications ascorbic acid (vitamin C) 500 mg capsule,extended release (Vitamin C) 500 mg PO DAILY 02/06/18 [History Confirmed 12/23/21] cholecalciferol (vitamin D3) 50 mcg (2,000 unit) tablet (Vitamin D3) 1 tab PO DAILY 02/06/18 [History Confirmed 12/23/21] loratadine 10 mg tablet (Claritin) 10 mg PO DAILY PRN Allergy Symptoms 02/06/18 [History Confirmed 12/23/21] magnesium 250 mg tablet 250 mg PO DAILY 02/06/18 [History Confirmed 12/23/21] acetaminophen 325 mg tablet (Tylenol) 325 mg PO ONCE 05/31/20 [History Confirmed 12/23/21] aspirin 81 mg tablet,delayed release 81 mg PO DAILY 09/13/20 [History Confirmed 12/23/21] Objective - Height/Weight Height/Weight: Height 5 ft 8 in Weight 69.853 kg - Vital Signs Vital Signs: 12/23/21 14:43 Temperature 97.8 F Pulse Rate [Left Brachial] 62 Respiratory Rate 16 Blood Pressure [Left Arm] 126/75 02 Sat by Pulse Oximetry 99 Oxygen Delivery Method Room Air Physical Exam Narrative: CONSTITUTIONAL: The patient is in no acute distress. HEAD / FACE: Normocephalic. EYES: Conjunctivae and lids are benign in appearance. Ocular movement intact. EARS: Hearing grossly intact. NOSE / MOUTH / THROAT: Nose, mouth, tongue and oropharynx are benign in appearance. No signs of inflammation. NECK / THYROID: Neck is supple. Thyroid is symmetrical, without thyromegaly, masses or palpable nodules. LYMPHATIC: No palpable cervical, supraclavicular, axillary, or inguinal adenopathy. RESPIRATORY: Normal to inspection. Lungs clear to auscultation and percussion. No wheezing, rales, rhonchi or rubs. Normal effort. CARDIOVASCULAR: Regular rate and rhythm. No murmurs, gallops, or rubs. VASCULAR: Carotid, radial, femoral and pedal pulses present bilaterally. No bruits. ABDOMEN: Bowel sounds normoactive. Soft, nontender and non-distended. No hepatosplenomegaly. No masses. GENITOURINARY: No CVA tenderness. No suprapubic fullness or tenderness. No groinadenopathy. No evidence of hernias. INTEGUMENTARY: The skin is unremarkable. No rashes. No suspicious lesions BACK / SPINE: The back is nontender. MUSCULOSKELETAL: Normal musculature, no joint deformities or abnormalities, normal range of motion for all four extremities. EXTREMITIES: No edema, cyanosis or clubbing. No Mary sign. NEUROLOGICAL: Alert and oriented. Cranial nerves intact. No gross motor or sensory deficits. PSYCHIATRIC: No anxiety or evidence of depression. - ECOG Performance Status ECOG Score: 1 Results - Labs Labs: Diagram of Most Recent CBC and CMP 12/20/21 12:48 12/20/21 12:48 Labs - Last 7 Days 12/20/21 12:48: Iron 90, TIBC 361, Iron Saturation 24.0, Transferrin 258, Ferritin 278.9 12/20/21 12:48: PHA Creatinine Clear 76.40, Sodium 138, Potassium 4.0, Chloride 100, Carbon Dioxide 30.2 H, BUN 9, Creatinine 0.78, Est GFR ( Amer) > 60,Est GFR (Non-Af Amer) > 60, Glucose 89, Calcium 9.9, Total Bilirubin 1.4 H, AST 24, ALT 22, Alkaline Phosphatase 52, Total Protein 6.9, Albumin 4.7, Globulin 2.2, Albumin/Globulin Ratio 2.1 12/20/21 12:48: Corrected WBC 6.3, Uncorrected WBC Count 6.3, RBC 4.58, Hgb 13.6, Hct 41.2, MCV 90.0, MCH 29.8, MCHC 33.1, RDW 15.6 H, Plt Count 527 H, MPV 8.5, Neut % (Auto) 63.2, Lymph % (Auto) 26.9, Pope % (Auto) 6.3, Eos % (Auto) 2.9, Baso % (Auto) 0.7, Neut # (Auto) 4.0, Lymph # (Auto) 1.7, Pope # (Auto) 0.4, Eos # (Auto) 0.2, Baso # (Auto) 0.0, Nucleated RBC % (auto) 0.0 - Impressions No imaging for review. Assessment and Plan - TNM Staging Staging: Essential thrombocytosis, high risk (age >60, JAK2 mutation) (1) Essential thrombocytosis This is a now 61 year old female referred in May 2020 for mild thrombocytosis with normal hemoglobin and white blood cells. No history of splenectomy, chronic infection, or known chronic inflammation. She hansen normal iron studies and a normal CRP (a sister has RA--STEPHANIE and RF returned negative). We reviewed results of BCR/ABL to r/o CML (-), CALR (-), and MPL (-). However, the patient has 8.57% JAK2 V617F mutation which in addition to her thrombocytosis greater than 460,000 and absence of criteria for polycythemia vera or other secondary causes of thrombosis would potentially meet the diagnostic criteria of essentialthrombocythemia. At that time we agreed that she does not require bone marrow aspiration biopsy for further evaluation nor did she meet any indications for active therapy. Low-dose aspirin for thrombosis prevention 81 mg daily due to age 60. Testing for acquired von Willebrand's disease returned negative. We discussed common features such as weight loss, night sweats, early satiety, abdominal discomfort, and other laboratory anomaly such changes leukocytosis and worseningthrombocytosis that may meet criteria for therapy with hydroxyurea in the future. She expressed understanding and will continue to follow up with me every 3-6 months. No indication for cytoreduction at that time. --At followup 05/19/2021--she is now >60 and has rising platelet count to 555,000. No thromboembolic disease, constitutional symptoms, or vasomotor phenomena such as erythromelalgia. I recommended bone marrow biopsy now that she meets high risk disease due to JAK2 with age > 60. She wishes to defer thisto July 2021 in absence of symptoms. If she meets all major criteria for ET diagnosis hat that time, we may consider cytoreduction (discussed options of hydroxyurea, peg IF ramon-2b, or anagrelide). She is given a copy of NCCN guidelines for diagnostic criteria and goals of cytoreduction. We will set up CT Abdomen/Pelvis in July 2021 as baseline for measurement of liver and spleen size and CBC with bone marrow biopsy at that time. 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 Thrombocytosis is improved from last visit--will treat withInjectafer for absent iron stores (prior intolerance oral iron). Will f/u 4-6 weeks to review iron studies with COMPUTER NETWORKING INSTRUCTOR, 4 month f/u CBC and determine cytoreduction if platelet count still > 450,000. --12/23/2021: Patient had no change of symptoms with Injectafer infusions. Platelets were 527,000 today, we again discussed cytoreductive therapy with hydroxyurea or interferon ramon. We will increase iron to 160mg daily. She willfollowup in 3 months or sooner as needed. This is a low complexity visit over 25 minutes to review exam and laboratories, response to iron repletion, and indications for therapy for essential thrombocythemia, now high risk. (2) Iron deficiency anemia Iron deficiency anemia defined by absent bone marrow stores. Thrombocytosis maybe reactive and she has prior intolerance of oral iron. Normal hemoglobin and normal iron studies after Injectafer 750mg x 2 weekly doses. - Time with Patient Time Spent with Patient (Follow Up Visit): 25 minutes - Low complexity followup. Coordination of Care & Counseling Time: Greater than 50% of time spent with patient was for coordination of care (as documented) and [id number] counseling of patient and/or family. Dictated By: Rosa Romo MD DD/ [id number] Signed By: <Electronically signed by MD Rosa Romo> 12/24/21 1633 [facility] Work Phone: Progress note Author Rosa Romo [facility] March 24, 2022 4:15pm Note Date/Time March 24, 2022 1 1:23am [facility] [place] [address] Hem/Onc Follow Up Note - OP Signed Patient: Gloria Allen MR#: [id number] : 1960 Acct:[id number] Age/Sex: 61 / F Type: REG RCR Copies to: Zeus Lamas DO~ Subjective Date/Time of Service: Date of Service: 03/24/2022 Time of Service: 11:22 Chief Complaint: Patient is here today for a 3 month followup visit and go over labs. No new concerns HPI: 03/24/2022: Gloria returns for 3-month follow-up, still denying any significantchange in energy level, headaches, dizziness, visual changes, or other concerning symptoms. She does not have any erythromelalgia. She continues to have platelet count near 500,000. She is taking 81 mg of aspirin most days and 160 mg about 2 to 3 days/week. We discussed that age greater than 60 is a risk factor although for polycythemia vera risk is higher at age greater than 67. Inabsence of any other symptoms or prior thromboses with relatively stable platelet count, it is reasonable to continue observation. Since she has not hadany significant change of her platelet count or symptoms over the last year we will defer follow-up CBC, CMP only to 6 months and follow her with symptoms and exam in 1 year. If she has new concerning symptoms we will see her sooner for discussion of cytoreductive therapy. Low complexity visit 20 minutes. 12/23/2021: Here for 3 month followup. She did not notice any change in energy level after iron infusions and platelet count is a little more elevated. We again discussed cytoreduction for elevated platelets > 500,000. She wishes to continue aspirin and we will increase dose from 81 to 160mg daily. We discussedsigns/symptoms of small vessel thrombosis (visual changes, headaches, dizziness,and dyspnea). Will continue followup every 3 months with CBC, CMP, sooner if new symptoms. 09/16/2021: Bone marrow biopsy performed 08/22/2021 due to persistent thrombocytosis with JAK2 mutation. Bone marrow biopsy does show mildly hypocellular marrow for age with megakaryocytic hyperplasia and no significant fibrosis (MF 0-1) most consistent with essential thrombocythemia. She has absent iron stores. Platelets are currently 494,000. Due to absent iron storesand prior intolerance of oral iron due to constipation, I will treat with Injectafer 750mg IV x 2 doses. 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 If platelets < 450,000 at that time, will not treat with cytoreduction and continue to follow every 4 months. 05/19/2021: Gloria is here for 4-month follow-up and had outside labs 05/16/2021 showing persistent elevation of platelet count to 555,000. She denies any constitutional symptoms such as fever, chills, sweats, or recent infections. No history of thrombosis. No erythromelalgia, headaches, visual changes, or dizziness. She had an evaluation for work-up of palpitations with echocardiogram and event monitor in January 2021 which was negative. We discussed NCCN guidelines for diagnosis and therapy recommendations for cytoreduction for essential thrombocytosis. We discussed that she is now considered high risk due to Vilal 2 mutation and age over 60. The diagnostic criteria of essential thrombocytosis includes platelet count greater than 450,000, bone marrow biopsy requiring proliferation of megakaryocytic lineage with increased and large mature megakaryocytes and no increase or left shift in neutrophils or erythropoiesis with minor grade 1 increase in reticulin fibers. She also must not meet any diagnostic criteria for CML, PV, PMI, myelodysplasticsyndrome, or other myeloid disorders and have presence of JAK2 mutation (noted on prior peripheral blood studies). Minor criteria is not meeting diagnosis forreactive thrombocytosis with presence of a clonal marker. --Now that her platelet count is 555,000 we did discuss working up essential thrombocytosis with bone marrow biopsy and CT to assess for splenomegaly prior to cytoreductive therapy. She wishes to defer the studies until July 2021 unless new symptoms arise. We will arrange her follow-up at that time and plan for bone marrow biopsy and CT. She may return sooner if new issues arise. 12/27/2020: Gloria has no new symptoms--no thrombosis history. Platelet count stable at 480,000. No erythromelalgia, headaches, visual changes or dizziness. Continues aspirin 81 mg daily. She remains in low risk group--no indications for cytoreduction, still low risk. Followup in 4 months with CBC--will recheck labs and exam at that time. 09/13/2020: Gloria returns for 3 month followup of Essential Thrombocytosis. She has prior JAK2 mutation with mild thrombocytosis--I decided against rechecking JAK2 level as she will continue observation on low dose aspirin as long as platelet count is less that 550-600,000. She denies erythromelalgia, headaches, or dizziness. We will continue every 3 month labs and followup (may extend followup to 6 months if clinically stable over the next 3 visits). 06/14/2020: Noted follow-up labs from 05/31/2020 to evaluate for elevated platelet counts. Platelets returned at 166,000 with normal hemoglobin 14.2 blood cell count 8900. Serum iron profile normal iron saturation 30% and ferritin 45.4. Normal C-reactive protein less than 0.5 and negative STEPHANIE and rheumatoid factor screen. Testing for JAK2 V617F mutation returned +8.57% with other JAK2 exons 12 through 14, CALR, MPL, and translocation (9;22) negative. I reviewed NCCN criteria for myeloproliferative neoplasm diagnosis and follow-up with the patient. She currently does not have any symptoms concerning for active treatment of myeloproliferative neoplasm, no splenomegaly, and she meets 3 majorcriteria 1 minor criteria (absence of reactive causes cytosis) for myeloproliferative neoplasm essential thrombocytosis. At this time there is no indication for bone marrow aspiration biopsy. The only other work-up that she requires is testing for acquired von Willebrand's disease with PT/PTT, von Willebrand factor antigen and activity and factor VIIIa level. She still meets low risk criteria at age 60 with absence of thrombosis, however she may benefit from low-dose aspirin if von Willebrand screen is negative. I will contact her with the results of von Willebrand's testing in about 2 weeks. She will follow-up with me every 3 months for the first 2 visits and if no evidence of progression or requirements for active therapy I will follow her every 4 months thereafter. At her 6-month visit I will recheck her JAK2 V617F mutation percentage to see if this appears to be progressing over time. This is a moderate complexity visit over 30 minutes to discuss complex testing, staging, and criteria for therapy as well as written materials from NCCN regarding symptoms and follow-up. PREVIOUS HISTORY: This is a now 61 year old lady in excellent health who was found on recent labs to have mild thrombocytosis. No prior h/o abnormal blood counts--she does report prior iron deficiency anemia over 20 years ago, but no recent iron deficiency or bright red blood per rectum. She notes recent hot flashes, burning epigastric pain, and mild constipation. No weight loss. No known history of autoimmune disease or chronic infection. She is concerned that her father had CML, one sister with melanoma, and another with undifferentiated cancer. She is concerned that her epigastric pain could represent malignancy. Of note she does report that her grandfather was diagnosed with CMML at age 93 but no other family history of hematologic disorders. She agreed to labs today, still showing mild thrombocytosis. I contacted her following her appointment to notify her of results and we will coordinate workupfor essential thrombocytosis or other myeloproliferative disorders. She will return Sunday for BCR/ABL, JAK2 V617M mutation with reflex to exons 12-14, CALR,and MPL. We will review these results at 2 week followup and determine if further workup is required. She will address epigastric pain with you in followup. - Summary of Therapies Summary of Therapies: Observation only--at 05/19/2021 visit she is now greater than age 60 with platelets 506,000 but requested to defer therapy unless symptomatic Injectafer 750mg IV x 2 weekly doses order 09/16/2021. ROS Details: All systems reviewed & no additional complaints except as documented Subjective/ROS - Narrative: CONSTITUTIONAL: No significant fatigue, negative for fever or night sweats. HEAD AND NECK: Negative for changes in hearing and vision. Negative for mouth ulcers, nasal congestion and nasal drainage. PULMONARY: Negative for chest pain, cough and dyspnea. CARDIOVASCULAR: Negative for claudication and irregular heartbeat/palpitations--completed workup for dysrhythmia with unremarkable echo and event monitor in 01/2021. GASTROINTESTINAL: Denies abdominal pain, constipation, decreased appetite. No diarrhea, nausea or vomiting. GENITOURINARY: Negative for dysuria and hematuria. ENDOCRINE: Negative for cold intolerance and positive for recent heat intolerance. Post menopausal about 10 years. CENTRAL NERVOUS SYSTEM: Negative for gait disturbance and headache. No motor orsensory deficits. PSYCHIATRIC: Negative for anxiety or depression. DERMATOLOGICAL: Negative for pruritus and rash. Negative for suspicious skin lesions. MUSCULOSKELETAL: Negative for back pain and bone/joint symptoms. HEMATOLOGICAL: Negative for bleeding and easy bruising. Negative for history of transfusion or thromboembolic disease (no DVT, no PE, No stroke or TIA). ALLERGY: Negative for environmental allergies and food allergies. [facility] - History Attestation statement: The following information was validated with the patient. Source: Old Records Reviewed - Medical History Medical History: Medical History (Last Reviewed 03/24/22 @ 16:09 by Rosa Romo MD) delivery delivered - Surgical History Surgical History: Surgical History (Last Reviewed 03/24/22 @ 16:09 by Rosa Romo MD) [place] teeth removed - Family History Family History: Family History (Last Reviewed 03/24/22 @ 16:09 by Rosa Romo MD) Mother Dementia Father Aortic valvar stenosis Father CMML (chronic myelomonocytic leukemia) Sister Melanoma - Social History Smoking Status: Never smoker Substance Use Type: None Home Medications & Allergies Allergies No Known Allergies Allergy (Verified 03/24/22 11:16) Home Medications ascorbic acid (vitamin C) 500 mg capsule,extended release (Vitamin C) 500 mg PO DAILY 02/06/18 [History Confirmed 03/24/22] cholecalciferol (vitamin D3) 50 mcg (2,000 unit) tablet (Vitamin D3) 1 tab PO DAILY 02/06/18 [History Confirmed 03/24/22] loratadine 10 mg tablet (Claritin) 10 mg PO DAILY PRN Allergy Symptoms 02/06/18 [History Confirmed 03/24/22] magnesium 250 mg tablet 250 mg PO DAILY 02/06/18 [History Confirmed 03/24/22] acetaminophen 325 mg tablet (Tylenol) 325 mg PO ONCE 05/31/20 [History Confirmed 03/24/22] aspirin 81 mg tablet,delayed release 81 mg PO DAILY 09/13/20 [History Confirmed 03/24/22] Objective - Height/Weight Height/Weight: Height 5 ft 8 in Weight 70.76 kg - Vital Signs Vital Signs: 03/24/22 11:17 Temperature 97.8 F Pulse Rate [Left Brachial] 58 L Respiratory Rate 16 Blood Pressure [Left Arm] 133/81 02 Sat by Pulse Oximetry 100 Oxygen Delivery Method Room Air Physical Exam Narrative: CONSTITUTIONAL: The patient is in no acute distress. HEAD / FACE: Normocephalic. EYES: Conjunctivae and lids are benign in appearance. Ocular movement intact. EARS: Hearing grossly intact. NOSE / MOUTH / THROAT: Nose, mouth, tongue and oropharynx are benign in appearance. No signs of inflammation. NECK / THYROID: Neck is supple. Thyroid is symmetrical, without thyromegaly, masses or palpable nodules. LYMPHATIC: No palpable cervical, supraclavicular, axillary, or inguinal adenopathy. RESPIRATORY: Normal to inspection. Lungs clear to auscultation and percussion. No wheezing, rales, rhonchi or rubs. Normal effort. CARDIOVASCULAR: Regular rate and rhythm. No murmurs, gallops, or rubs. VASCULAR: Carotid, radial, femoral and pedal pulses present bilaterally. No bruits. ABDOMEN: Bowel sounds normoactive. Soft, nontender and non-distended. No hepatosplenomegaly. No masses. GENITOURINARY: No CVA tenderness. No suprapubic fullness or tenderness. No groinadenopathy. No evidence of hernias. INTEGUMENTARY: The skin is unremarkable. No rashes. No suspicious lesions BACK / SPINE: The back is nontender. MUSCULOSKELETAL: Normal musculature, no joint deformities or abnormalities, normal range of motion for all four extremities. EXTREMITIES: No edema, cyanosis or clubbing. No Mary sign. NEUROLOGICAL: Alert and oriented. Cranial nerves intact. No gross motor or sensory deficits. PSYCHIATRIC: No anxiety or evidence of depression. - ECOG Performance Status ECOG Score: 0 Results - Labs Labs: Diagram of Most Recent CBC and CMP 03/22/22 13:46 03/22/22 13:46 Labs - Last 7 Days 03/22/22 13:46: PHA Creatinine Clear 75.44, Sodium 137, Potassium 4.4, Chloride 100, Carbon Dioxide 29.8, Anion Gap 11.6, BUN 12, Creatinine 0.79, Est GFR ( Amer) > 60, Est GFR (Non-Af Amer) > 60, Glucose 123 H, Calcium 9.7, Total Bilirubin 1.8 H, AST 22, ALT 17, Alkaline Phosphatase 56, Total Protein 6.5, Albumin 4.3, Globulin 2.2, Albumin/Globulin Ratio 2.0 03/22/22 13:46: Corrected WBC 8.0, Uncorrected WBC Count 8.0, RBC 4.63, Hgb 13.6, Hct 41.9, MCV 90.4, MCH 29.4, MCHC 32.5, RDW 14.7, Plt Count 506 H, MPV 8.3, Neut % (Auto) 66.6, Lymph % (Auto) 24.9, Pope % (Auto) 5.2, Eos % (Auto) 2.4, Baso % (Auto) 0.9, Neut # (Auto) 5.3, Lymph # (Auto) 2.0, Pope # (Auto) 0.4, Eos # (Auto) 0.2, Baso # (Auto) 0.1, Nucleated RBC % (auto) 0.0 - Impressions No new imaging for review Assessment and Plan - TNM Staging Staging: Essential thrombocytosis, high risk (age >60, JAK2 mutation) (1) Essential thrombocytosis This is a now 61 year old female referred in May 2020 for mild thrombocytosis with normal hemoglobin and white blood cells. No history of splenectomy, chronic infection, or known chronic inflammation. She hansen normal iron studies and a normal CRP (a sister has RA--STEPHANIE and RF returned negative). We reviewed results of BCR/ABL to r/o CML (-), CALR (-), and MPL (-). However, the patient has 8.57% JAK2 V617F mutation which in addition to her thrombocytosis greater than 460,000 and absence of criteria for polycythemia vera or other secondary causes of thrombosis would potentially meet the diagnostic criteria of essentialthrombocythemia. At that time we agreed that she does not require bone marrow aspiration biopsy for further evaluation nor did she meet any indications for active therapy. Low-dose aspirin for thrombosis prevention 81 mg daily due to age 60. Testing for acquired von Willebrand's disease returned negative. We discussed common features such as weight loss, night sweats, early satiety, abdominal discomfort, and other laboratory anomaly such changes leukocytosis and worseningthrombocytosis that may meet criteria for therapy with hydroxyurea in the future. She expressed understanding and will continue to follow up with me every 3-6 months. No indication for cytoreduction at that time. --At followup 05/19/2021--she is now >60 and has rising platelet count to 555,000. No thromboembolic disease, constitutional symptoms, or vasomotor phenomena such as erythromelalgia. I recommended bone marrow biopsy now that she meets high risk disease due to JAK2 with age > 60. She wishes to defer thisto July 2021 in absence of symptoms. If she meets all major criteria for ET diagnosis hat that time, we may consider cytoreduction (discussed options of hydroxyurea, peg IF ramon-2b, or anagrelide). She is given a copy of NCCN guidelines for diagnostic criteria and goals of cytoreduction. We will set up CT Abdomen/Pelvis in July 2021 as baseline for measurement of liver and spleen size and CBC with bone marrow biopsy at that time. 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 Thrombocytosis is improved from last visit--will treat withInjectafer for absent iron stores (prior intolerance oral iron). Will f/u 4-6 weeks to review iron studies with COMPUTER NETWORKING INSTRUCTOR, 4 month f/u CBC and determine cytoreduction if platelet count still > 450,000. --12/23/2021: Patient had no change of symptoms with Injectafer infusions. Platelets were 527,000 today, we again discussed cytoreductive therapy with hydroxyurea or interferon ramno. We will increase aspirin to 160mg daily. She will followup in 3 months or sooner as needed. -- 03/24/2022: Patient again has no change in symptoms. Platelets 506,000 today. No signs of hyperviscosity and patient still is reluctant to start cytoreductive therapy in absence of symptoms. She is taking aspirin 81 mg dailywith 2 tablets (160 mg) about 3 days/week. Since she has had clinical stabilityover the last year and is not interested in cytoreductive therapy, we will deferlabs with CBC and CMP to 6 months and follow-up with me with labs and exam in 12months. If she has significant thrombocytosis or concerning symptoms that wouldincrease risk of hyperviscosity, we will have her return sooner for discussion of cytoreductive therapy. Also discussed routine age-appropriate screening for malignancy. This is a low complexity visit over 20 minutes to review exam and laboratories, and indications for therapy for essential thrombocythemia, now high risk. (2) Iron deficiency anemia Iron deficiency anemia defined by absent bone marrow stores. Thrombocytosis maybe reactive and she has prior intolerance of oral iron. Normal hemoglobin and normal iron studies after Injectafer 750mg x 2 weekly doses. - Time with Patient Time Spent with Patient (Follow Up Visit): Less than 20 minutes - Low complexityfollowup review labs and continued surveillance per patient request Coordination of Care & Counseling Time: Greater than 50% of time spent with patient was for coordination of care (as documented) and [id number] counseling of patient and/or family. Dictated By: Rosa Romo MD DD/ [id number] Signed By: <Electronically signed by MD Rosa Romo> 03/24/22 1619 [facility] Work Phone: Summary Purpose Family History No Family History Records Found Relationship Condition Age at Onset Recorded Date/T kimberly Not Specified Dementia Unknown father Aortic valve stenosis Unknown father Chronic myelomonocytic leukemia Unknown sister Malignant melanoma Unknown Advance Directives No Advanced Directives Records Found Advance Directive Response Recorded Date/ Time Advance Directives No August 29 18 9:57am Chief Complaint and Reason for Visit Chief Complaint R17 D47.3 Z00.00 high platelets Reason for Visit Thrombocytosis Epigastric pain Essential thrombocytosis Iron deficiency anemia Chief Complaint high platelets Reason for Visit Thrombocytosis Epigastric pain Essential thrombocytosis Iron deficiency anemia Chief Complaint Screening Chief Complaint Screening r92.8 Chief Complaint j01.00 z00.00 high platelets Reason for Visit Thrombocytosis Epigastric pain Essential thrombocytosis Iron deficiency anemia Chief Complaint Z12.31 Additional Source Comments INFORMATION SOURCE (unrecogn ized section and content) DATE CREATED AUTHOR 12/21/2017 [facility] DATE CREATED AUTHOR AUTHOR'S ORGANIZ ATION 05/16/2021 [facility] DATE CREATED AUTHOR AUTHOR'S ORGANIZ ATION 06/30/2021 [facility] DATE CREATED AUTHOR AUTHOR'S ORGANIZ ATION 06/06/2023 [facility] DATE CREATED AUTHOR AUTHOR'S ORGANIZ ATION 09/14/2023 [facility] Care Teams (unrecognized sec tion and content) Team Status: Active Member Role Status Dates Zeus Lamas DO Primary Care Provider, Referring Mansi albright Active Rosa Romo MD Attending Provider Active Team Status: Inactive Member Role Status Dates Zeus Lamas DO Primary Care Provider, Attending Mansi albright Active Team Status: Active Member Role Status Dates Zeus Lamas DO Primary Care Provider Active Team Status: Inactive Member Role Status Dates Zeus Lamas DO Primary Care Provider Active Mckenzie Perkins DO Attending Provider Active Team Status: Inactive Member Role Status Dates Zeus Lamas DO Primary Care Provider Active Start: September 11, 2023 End: September 11, 2023 Mckenzie Perkins DO Attending Provider Active Start: September 11, 2023 End: September 11, 2023 Goals (unrecognized section and content) Goals may be documented in a n alternate sectionGoals may be documented in an alternate sectionGoals may be documented in an alternate sectionGoals may be documented in an alternate sectionGoals may be documented in an alternate sectionGoals may be documented in an alternate sectionGoals may be documented in an alternate sectionGoals may be documented in an alternate section FOR RECORDS PERTAINING TO PATIENTS WHO ARE OR HAVE BEEN ENROLLED IN A CHEMICAL DEPENDENCY/SUBSTANCEABUSE PROGRAM, SOME INFORMATION MAY BE OMITTED. This clinical summary was aggregated from multiple sources. Caution should be exercised in using it in the provision of clinical care. This summary normalizes information from multiple sources, and as a consequence, information in this document may materially change the coding, format and clinical context of patient data. In addition, data may be omitted in some cases. CLINICAL DECISIONS SHOULD BE BASED ON THE PRIMARY CLINICAL RECORDS. [facility] [employer] provides no warranty or guarantee of the accuracy or completeness of information in this document.
[2023-10-03] MEDS: LIDOCAINE HCL 1% 100 MG/10 ML MDV INJ (08:32)
[2023-10-03] MEDS: 0.9 % SODIUM CHLORIDE 500 ML, LIDOCAINE HCL 20 ML, SODIUM BICARBONATE 10 MEQ INJ (08:33)
== END 2023-10-03 08:00 | disposition home or self-care (01) ==
LOC: VC 07:59
PROVIDERS: PCP Radiology Diagnostic Radiology; Visit Provider Radiology Diagnostic Radiology
DX: I83.813 Varicose veins of bilateral lower extremities with pain (principal)
CPT/HCPCS: 36478

== ENCOUNTER 2023-10-10 14:32 | Outpatient (OUT) | payer OTHER, SELFPAY ==
--- NOTE | 2023-10-10 14:36 | VEIN_ITS ---
Patient Name: JONA ALLEN MR#: [id number] : 1960 Exam Date: 10/10/2023 Ordering Doctor: DR CORBIN SHEPHERD M.D. RADIOLOGY REPORT PROCEDURE: [facility] EST [facility] - OFFICE VISIT FOLLOW UP COMPARISON: [facility], 09/25/2023. PROGRESS NOTES: The patient reports no significant problems following intravenous laser ablation of the left great saphenous vein. The patient did not require oral analgesics for the patient's exercised and worn her compression stocking as directed. Physical exam demonstrates no bruising, erythema or warmth. No evidence of cellulitis or thrombophlebitis. No active ulceration. The left great saphenous vein can be partially palpated. Review of the ultrasound performed the same day demonstrates occlusive thrombus extending throughout the treated left great saphenous vein with heat induced thrombus 1.7 cm in the saphenofemoral junction. There has been retraction of the clot in the right great saphenous vein now 1.5 cm from the saphenofemoral junction. The patient expressed a desire to proceed with treatment of incompetent varicose veins with micro foam chemical ablation. VEIN/[facility] EST TD IMPRESSION: 1. Successful ablation of the left great saphenous vein 2. Persistent bilateral incompetent varicose veins. PLAN: Micro foam chemical ablation right leg incompetent varicose veins Nurse notes, history and physical were reviewed and confirmed, see attached forms. The nurse was present throughout the physical exam and consultation Dictated by: Corbin Shepherd MD on 10/10/2023 at 15:22 Approved by: Corbin Shepherd MD on 10/10/2023 at 15:26
--- NOTE | 2023-10-10 14:36 | VEIN_ITS ---
Patient Name: JONA ALLEN MR#: [id number] : 1960 Exam Date: 10/10/2023 Ordering Doctor: DR CORBIN SHEPHERD M.D. RADIOLOGY REPORT PROCEDURE: VC EXT VENOUS LT LIMITED COMPARISON: None. INDICATIONS: I80.02 Phlebitis of superficial veins of left lower extremity TECHNIQUE: Lower extremity lopez scale and Duplex Doppler evaluation of the deep venous system from the inguinal ligament through the calf veins. FINDINGS: REGION: Left lower extremity. THROMBI: Negative for DVT. Heat induced thrombus in left GSV 1.7 cm from SFJ and extends to proximal calf. COMPRESSIBILITY: Non-compressible segments corresponding to thrombus FLOW: Areas of no flow corresponding to thrombus Other: Retraction of the thrombus in the right great saphenous vein now measuring 1.5 cm from the saphenofemoral junction CONCLUSION: Post ablation occlusion of the treated left great saphenous vein with heat induced thrombus 1.7 cm from the saphenofemoral junction Dictated by: Corbin Shepherd MD on 10/10/2023 at 14:57 Approved by: Corbin Shepherd MD on 10/10/2023 at 15:00
--- OUTSIDE RECORDS SUMMARY | 2023-10-10 14:51 | XMS_ITS | CCD ---
Author Organization [facility] Care Team Providers Care Job Placement Counselor Name Role Phone ZEUS LAMAS Unavailable Unavailable ZEUS LAMAS Unavailable Unavailable ZEUS LAMAS Unavailable Unavailable DO Zeus Lamas Primary Care Provider DO Zeus Lamas Attending Provider DO Zeus Lamas Referring Provider MD Rosa Romo Attending Provider DO Zeus Lamas Primary Care Provider [phone] DO Zeus Lamas Referring Provider MD Rosa Romo Attending Provider DO Zeus Lamas Primary Care Provider [phone] DO Mckenzie Perkins Attending Provider DO Zeus Lamas Primary Care Provider DO Zeus Lamas Attending Provider DO Zeus Lamas Referring Provider MD Rosa Romo Attending Provider DO Zeus Lamas Referring Provider MD Rosa Romo Attending Provider [phone] MCKENZIE PERKINS Attending Unavailable DO Zeus [...] (Bld) [#/Vol] 0.1 10*3/uL Normal 0.0-0.2 [facility] Comment on above: Result Comment: PERF ORMED BY: [place] [address] PATHOLOGIST [employer] MIGUEL LARSEN M.D. Performed By: #### C BC, CMP #### [address] Basophils/100 WBC (Bld) 1.0 % Normal . [facility] Comment on above: Performed By: #### C BC, CMP #### [place] [address] [place] Eosinophils (Bld) [#/Vol] 0.3 10*3/uL Normal 0.0-0.45 [facility] Comment on above: Performed By: #### C BC, CMP #### [place] [address] [place] Eosinophils/100 WBC (Bld) 4.8 % Normal . [facility] Comment on above: Performed By: #### C BC, CMP #### [address] Erythrocyte distribution width (RBC) [Ratio] 16.0 % High 11.9-15.3 [facility] Comment on above: Performed By: #### C BC, CMP #### [address] Hematocrit (Bld) [Volume fraction] 42.6 % Normal 34.0-46.4 [facility] Comment on above: Performed By: #### C BC, CMP #### [address] Hemoglobin (Bld) [Mass/Vol] 13.8 g/dL Normal 11.8-15.4 [facility] Comment on above: Performed By: #### C BC, CMP #### [address] Lymphocytes (Bld) [#/Vol] 2.3 10*3/uL Normal 1.00-4.8 [facility] Comment on above: Performed By: #### C BC, CMP #### [address] Lymphocytes/100 WBC (Bld) 32.7 % Normal . [facility] Comment on above: Performed By: #### C BC, CMP #### [address] MCH (RBC) [Entitic mass] 28.9 pg Normal 24.7-34.3 [facility] Comment on above: Performed By: #### C BC, CMP #### [address] MCV (RBC) [Entitic vol] 89.0 fL Normal 80-100 [facility] Comment on above: Performed By: #### C BC, CMP #### [address] Mean Corpuscular HGB Conc 32.5 g/dL Normal 32.0-35.0 [facility] Comment on above: Performed By: #### C BC, CMP #### [address] Monocytes (Bld) [#/Vol] 0.5 10*3/uL Normal 0.0-0.8 [facility] Comment on above: Performed By: #### C BC, CMP #### [place] [address] [place] Monocytes/100 WBC (Bld) 7.2 % Normal . [facility] Comment on above: Performed By: #### C BC, CMP #### [address] Neutrophils (Bld) [#/Vol] 3.9 10*3/uL Normal 1.8-7.7 [facility] Comment on above: Performed By: #### C BC, CMP #### [address] Neutrophils/100 WBC (Bld) 54.3 % Normal . [facility] Comment on above: Performed By: #### C BC, CMP #### [address] NRBC% 0.0 /100{WBC} Normal 0-0.5 [facility] Comment on above: Performed By: #### C BC, CMP #### [address] Platelet mean volume (Bld) [Entitic vol] 8.2 fL Normal 6.3-10.7 [facility] Comment on above: Performed By: #### C BC, CMP #### [place] [address] [place] Platelets (Bld) [#/Vol] 599 10*3/uL High 150-450 [facility] Comment on above: Performed By: #### C BC, CMP #### [place] [address] [place] RBC (Bld) [#/Vol] 4.78 10*6/uL Normal 3.60-5.00 [facility] Comment on above: Performed By: #### C BC, CMP #### [address] WBC (Bld) [#/Vol] 7.1 10*3/uL Normal 3.8-11.6 [facility] Comment on above: Performed By: #### C BC, CMP #### [address] Comprehensive Metabolic Pane douglas 09-12-2023 Albumin [Mass/Vol] 4.8 g/dL Normal 3.5-5.7 [facility] Comment on above: Performed By: #### C BC, CMP #### [address] Albumin/Globulin [Mass ratio] 2.2 {ratio} Normal [facility] Comment on above: Performed By: #### C BC, CMP #### [address] ALP [Catalytic activity/Vol] 56 U/L Normal 34-104 [facility] Comment on above: Performed By: #### C BC, CMP #### [address] ALT [Catalytic activity/Vol] 15 U/L Normal 7-52 [facility] Comment on above: Performed By: #### C BC, CMP #### [address] Anion gap [Moles/Vol] 9.3 mmol/L Normal 6.0-15.0 [facility] Comment on above: Performed By: #### C BC, CMP #### [address] AST [Catalytic activity/Vol] 21 U/L Normal 13-39 [facility] Comment on above: Performed By: #### C BC, CMP #### [address] Bilirubin [Mass/Vol] 1.2 mg/dL High 0.3-1.0 [facility] Comment on above: Performed By: #### C BC, CMP #### [address] Calcium [Mass/Vol] 10.3 mg/dL Normal 8.6-10.3 [facility] Comment on above: Performed By: #### C BC, CMP #### [address] Chloride [Moles/Vol] 103 mmol/L Normal 98-107 [facility] Comment on above: Performed By: #### C BC, CMP #### [address] CO2 [Moles/Vol] 32.3 mmol/L High 21.0-31.0 [facility] Comment on above: Performed By: #### C BC, CMP #### [address] Creatinine [Mass/Vol] 0.82 mg/dL Normal 0.60-1.20 [facility] Comment on above: Performed By: #### C BC, CMP #### [address] Creatinine Clr Calc Pharmacy 70.84 Normal [facility] Comment on above: Result Comment: PERF ORMED BY: [place] [address] PATHOLOGIST [employer] MIGUEL LARSEN M.D. Performed By: #### C BC, CMP #### [address] GFR/1.73 sq M.predicted MDRD (S/P/Bld) [Vol rate/Area] mL/min/{1.73_m2} Normal [facility] Comment on above: Performed By: #### C BC, CMP #### [address] Globulin (S) [Mass/Vol] 2.2 g/dL Normal [facility] Comment on above: Performed By: #### C BC, CMP #### [address] Glucose [Mass/Vol] 77 mg/dL Normal 70-100 [facility] Comment on above: Result Comment: [facility] Glucose Reference Range is dependent on time and content of last meal. Glucose of more than 200 mg/dL in a nonstressed, ambulatory subject supports the diagnosis of Diabetes Mellitus. ADA recommended reference range Performed By: #### C BC, CMP #### [facility] [address] Potassium [Moles/Vol] 4.6 mmol/L Normal 3.5-5.1 [facility] Comment on above: Performed By: #### C BC, CMP #### [facility] [address] Protein [Mass/Vol] 7.0 g/dL Normal 6.4-8.9 [facility] Comment on above: Performed By: #### C BC, CMP #### [facility] [address] Sodium [Moles/Vol] 140 mmol/L Normal 136-145 [facility] Comment on above: Performed By: #### C BC, CMP #### [facility] [address] [place] [id number] [place] Urea nitrogen [Mass/Vol] 18 mg/dL Normal 7-25 [facility] Comment on above: Performed By: #### C BC, CMP #### [facility] [address] MM screening mammo BI w/CADo n 09-11-2023 MM screening mammo BI w/CAD [facility] [address] [place] [address] [place] [address] Mammography Report Signed Patient: Gloria Allen MR#: [id number] [birth year] : 1960 Acct:[id number] Age/Sex: 63 / F ADM Date: 09/11/23 Loc: [place] Room: Type: [facility] Attending Dr: Mckenzie Perkins DO Copies to: [...] the next mammogram. Impression dictated by: Diana Maots M.D.09/11/2023 1:30 PM Dictation Location: [facility] Transcribed By: CHRISTOFER 09/11/23 1330 Dictated By: Diana Matos MD 09/11/23 1327 Signed By: 09/11/23 1330 Normal [facility] Alanine aminotransferase [En zymatic activity/volume] in Serum or PlasmaOrdered By: Rosa Romo on 03-19-2023 ALT [Catalytic activity/Vol] 13 U/L 7-52 [facility] Albumin [Mass/volume] in Ser um or Plasma by Bromocresol green (BCG) dye binding methoOrdered By: Rosa Romo on 03-19-2023 Albumin BCG dye [Mass/Vol] 4.5 g/dL 3.5-5.7 [facility] Alkaline phosphatase [Enzyma tic activity/volume] in Serum or PlasmaOrdered By: Rosa Romo on 03-19-2023 ALP [Catalytic activity/Vol] 56 U/L 34-104 [facility] Aspartate aminotransferase [ Enzymatic activity/volume] in Serum or PlasmaOrdered By: Rosa Romo on 03-19-2023 AST [Catalytic activity/Vol] 19 U/L 13-39 [facility] Basophils Auto (Bld) [#/Vol] Ordered By: Rosa Romo on 03-19-2023 Basophils (Bld) [#/Vol] 0.1 10*3/uL 0.0-0.2 [facility] Basophils/100 WBC Auto (Bld) Ordered By: Rosa Romo on 03-19-2023 Basophils/100 WBC (Bld) 0.9 % . [facility] Bilirubin.total [Mass/volume ] in Serum or PlasmaOrdered By: Rosa Romo on 03-19-2023 Bilirubin [Mass/Vol] 1.4 mg/dL 0.3-1.0 [facility] Comment on above: Samples from patient s who have taken Naproxen have shown spurious elevation in Total Bilirubin levels. A metabolite of Naproxen, O-desmethylnaproxen, has been shown to interfere with the Pop-Adeel method for measuring Total Bilirubin. Calcium [Mass/volume] in Ser um or PlasmaOrdered By: Rosa Romo on 03-19-2023 Calcium [Mass/Vol] 9.7 mg/dL 8.6-10.3 [facility] Carbon dioxide, total [Moles /volume] in Serum or PlasmaOrdered By: Rosa Romo on 03-19-2023 CO2 [Moles/Vol] 31.9 mmol/L 21.0-31.0 [facility] Chloride [Moles/volume] in S anne or PlasmaOrdered By: Rosa Romo on 03-19-2023 Chloride [Moles/Vol] 104 mmol/L 98-107 [facility] Cholesterol [Mass/volume] in Serum or PlasmaOrdered By: Zeus Lamas on 03-19-2023 Cholesterol [Mass/Vol] 179 mg/dL 140-200 [facility] Comment on above: Chol less than 200 m g/dl low riskChol 201-239 mg/dl borderline riskChol 240 mg/dl and greater high risk Cholesterol in LDL Calc [Mas s/Vol]Ordered By: Zeus Lamas on 03-19-2023 Cholesterol in LDL [Mass/Vol] 123 mg/dL 0-100 [facility] Comment on above: LDL ATP III CLASSIFI CATIONLDL less than 100 mg/dL OptimalLDL 100-129 mg/dL Near or above optimalLDL 130-159 mg/dL Borderline highLDL 160-189 mg/dL HighLDL greater than 189 mg/dL Very high Cholesterol in VLDL Calc [Ma ss/Vol]Ordered By: Zeus Lamas on 03-19-2023 Cholesterol in VLDL [Mass/Vol] 12 mg/dL [facility] Comprehensive Metabolic Pane douglas 03-19-2023 Albumin [Mass/Vol] 4.5 g/dL Normal 3.5-5.7 [facility] Comment on above: Order Comment: PT FA STED 12 HOURS Performed By: #### S CAN CBC, CMP #### [facility] [address] Albumin/Globulin [Mass ratio] 2.0 {ratio} Normal [facility] Comment on above: Order Comment: PT FA STED 12 HOURS Performed By: #### S CAN CBC, CMP #### [facility] [address] [place] [address] [place] ALP [Catalytic activity/Vol] 56 U/L Normal 34-104 [facility] Comment on above: Order Comment: PT FA STED 12 HOURS Performed By: #### S CAN CBC, CMP #### [place] [address] [place] ALT [Catalytic activity/Vol] 13 U/L Normal 7-52 [facility] Comment on above: Order Comment: PT FA STED 12 HOURS Performed By: #### S CAN CBC, CMP #### [facility] [address] [place] [address] [place] Anion gap [Moles/Vol] 9.3 mmol/L Normal 6.0-15.0 [facility] Comment on above: Order Comment: PT FA STED 12 HOURS Performed By: #### S CAN CBC, CMP #### [facility] [address] [place] [id number] [place] AST [Catalytic activity/Vol] 19 U/L Normal 13-39 [facility] Comment on above: Order Comment: PT FA STED 12 HOURS Performed By: #### S CAN CBC, CMP #### [address] [address] [place] Bilirubin [Mass/Vol] 1.4 mg/dL High 0.3-1.0 [facility] Comment on above: Order Comment: PT FA STED 12 HOURS Result Comment: Samp les from patients who have taken Naproxen have shown spurious elevation in Total Bilirubin levels. A metabolite of Naproxen, O-desmethylnaproxen, has been shown to interfere with the Jendrassik-Grof method for measuring Total Bilirubin. Performed By: #### S CAN CBC, CMP #### [address] Calcium [Mass/Vol] 9.7 mg/dL Normal 8.6-10.3 [facility] Comment on above: Order Comment: PT FA STED 12 HOURS Performed By: #### S CAN CBC, CMP #### [address] Chloride [Moles/Vol] 104 mmol/L Normal 98-107 [facility] Comment on above: Order Comment: PT FA STED 12 HOURS Performed By: #### S CAN CBC, CMP #### [address] CO2 [Moles/Vol] 31.9 mmol/L High 21.0-31.0 [facility] Comment on above: Order Comment: PT FA STED 12 HOURS Performed By: #### S CAN CBC, CMP #### [place] [address] [place] Creatinine [Mass/Vol] 0.77 mg/dL Normal 0.60-1.20 [facility] Comment on above: Order Comment: PT FA STED 12 HOURS Performed By: #### S CAN CBC, CMP #### [place] [address] [place] Creatinine Clr Calc Pharmacy 76.42 Normal [facility] Comment on above: Order Comment: PT FA STED 12 HOURS Result Comment: PERF ORMED BY: [place] [address] PATHOLOGIST [employer] MIGUEL LARSEN M.D. Performed By: #### S CAN CBC, CMP #### [facility] [address] [place] [address] [place] GFR/1.73 sq M.predicted MDRD (S/P/Bld) [Vol rate/Area] mL/min/{1.73_m2} Normal [facility] Comment on above: Order Comment: PT FA STED 12 HOURS Performed By: #### S CAN CBC, CMP #### [facility] [address] [place] [address] [place] Globulin (S) [Mass/Vol] 2.2 g/dL Normal [facility] Comment on above: Order Comment: PT FA STED 12 HOURS Performed By: #### S CAN CBC, CMP #### [address] Glucose [Mass/Vol] 79 mg/dL Normal 70-100 [facility] Comment on above: Order Comment: PT FA STED 12 HOURS Result Comment: [place] Glucose Reference Range is dependent on time and content of last meal. Glucose of more than 200 mg/dL in a nonstressed, ambulatory subject supports the diagnosis of Diabetes Mellitus. ADA recommended reference range Performed By: #### S CAN CBC, CMP #### [place] [address] [place] Potassium [Moles/Vol] 4.2 mmol/L Normal 3.5-5.1 [facility] Comment on above: Order Comment: PT FA STED 12 HOURS Performed By: #### S CAN CBC, CMP #### [place] [address] [place] Protein [Mass/Vol] 6.7 g/dL Normal 6.4-8.9 [facility] Comment on above: Order Comment: PT FA STED 12 HOURS Performed By: #### S CAN CBC, CMP #### [place] [address] [place] Sodium [Moles/Vol] 141 mmol/L Normal 136-145 [facility] Comment on above: Order Comment: PT FA STED 12 HOURS Performed By: #### S CAN CBC, CMP #### [place] [address] [place] Urea nitrogen [Mass/Vol] 13 mg/dL Normal 7-25 [facility] Comment on above: Order Comment: PT FA STED 12 HOURS Performed By: #### S CAN CBC, CMP #### [facility] [address] [place] [id number] [facility] Creatinine [Mass/volume] in Serum or PlasmaOrdered By: Rosa Romo on 03-19-2023 Creatinine [Mass/Vol] 0.77 mg/dL 0.60-1.20 [facility] Eosinophils Auto (Bld) [#/Vo l]Ordered By: Rosa Rmoo on 03-19-2023 Eosinophils (Bld) [#/Vol] 0.3 10*3/uL 0.0-0.45 [facility] Eosinophils/100 WBC Auto (Bl d)Ordered By: Rosa Romo on 03-19-2023 Eosinophils/100 WBC (Bld) 4.9 % . [facility] Erythrocyte distribution wid th Auto (RBC) [Ratio]Ordered By: Rosa Romo on 03-19-2023 Erythrocyte distribution width (RBC) [Ratio] 15.4 % 11.9-15.3 [facility] Globulin Calc (S) [Mass/Vol] Ordered By: Rosa Romo on 03-19-2023 Globulin (S) [Mass/Vol] 2.2 g/dL [facility] Glucose [Mass/volume] in Ser um or PlasmaOrdered By: Rosa Romo on 03-19-2023 Glucose [Mass/Vol] 79 mg/dL 70-100 [facility] Comment on above: ADA recommended refe rence rangeRandom Glucose Reference Range is dependent on time and content of last meal. Glucose of more than 200 mg/dL in a nonstressed, ambulatory subject supports the diagnosis of Diabetes Mellitus. Hematocrit Auto (Bld) [Volum e fraction]Ordered By: Rosa Romo on 03-19-2023 Hematocrit (Bld) [Volume fraction] 41.5 % 34.0-46.4 [facility] Hemoglobin [Mass/volume] in BloodOrdered By: Rosa Romo on 03-19-2023 Hemoglobin (Bld) [Mass/Vol] 13.7 g/dL 11.8-15.4 [facility] Leukocytes [#/volume] correc prema for nucleated erythrocytes in Blood by Automated counOrdered By: Rosa Romo on 03-19-2023 WBC corrected for nucl RBC Auto (Bld) [#/Vol] 6.5 10*3/uL 3.8-11.6 [facility] Lipid Panelon 03-19-2023 Cholesterol [Mass/Vol] 179 mg/dL Normal 140-200 [facility] Comment on above: Order Comment: PT FA STED 12 HOURS Result Comment: Chol less than 200 mg/dl low risk Chol 201-239 mg/dl borderline risk Chol 240 mg/dl and greater high risk Performed By: #### L IPID #### [facility] [address] [place] [address] [place] Cholesterol in HDL [Mass/Vol] 44 mg/dL Normal 23-92 [facility] Comment on above: Order Comment: PT FA STED 12 HOURS Result Comment: HDL CHOL ATP-III CLASSIFICATION Cardiovascular Risk HDL > or equal to 60 mg/dL LOW HDL < 40 mg/dL HIGH Performed By: #### L IPID #### [facility] [address] Cholesterol.total/Chol esterol in HDL [Mass ratio] 4.1 {ratio} Normal <5.0 [facility] Comment on above: Order Comment: PT FA STED 12 HOURS Result Comment: PERF ORMED BY: [place] [address] PATHOLOGIST [employer] MIGUEL LARSEN M.D. Performed By: #### L IPID #### [facility] [address] LDL Cholesterol,Calculated 123 mg/dL High 0-100 [facility] Comment on above: Order Comment: PT FA STED 12 HOURS Result Comment: LDL ATP III CLASSIFICATION LDL less than 100 mg/dL Optimal LDL 100-129 mg/dL Near or above optimal LDL 130-159 mg/dL Borderline high LDL 160-189 mg/dL High LDL greater than 189 mg/dL Very high Performed By: #### L IPID #### [facility] [address] [place] [id number] [place] Triglyceride w/Reflex 62 mg/dL Normal 0-149 [facility] Comment on above: Order Comment: PT FA STED 12 HOURS Result Comment: TRIG ATP III CLASSIFICATION TRIG less than 150 mg/dL Normal TRIG 150-199 mg/dL Borderline high TRIG 200-500 mg/dL High TRIG greater than 500 mg/dL Very high Standard traceable to the Center for Disease Conrtrol and Prevention (CDC) test method. Performed By: #### L IPID #### [facility] [address] VLDL CHOLESTEROL 12 mg/dL Normal [facility] Comment on above: Order Comment: PT FA STED 12 HOURS Performed By: #### L IPID #### [facility] [address] Lymphocytes Auto (Bld) [#/Vo l]Ordered By: Rosa Romo on 03-19-2023 Lymphocytes (Bld) [#/Vol] 2.1 10*3/uL 1.00-4.8 [facility] Lymphocytes/100 WBC Auto (Bl d)Ordered By: Rosa Romo on 03-19-2023 Lymphocytes/100 WBC (Bld) 32.8 % . [facility] MCH Auto (RBC) [Entitic mass ]Ordered By: Rosa Romo on 03-19-2023 MCH (RBC) [Entitic mass] 28.8 pg 24.7-34.3 [facility] MCHC Auto (RBC) [Mass/Vol]Or dered By: Rosa Romo on 03-19-2023 MCHC (RBC) [Mass/Vol] 33.1 g/dL 32.0-35.0 [facility] MCV Auto (RBC) [Entitic vol] Ordered By: Rosa Romo on 03-19-2023 MCV (RBC) [Entitic vol] 87.1 fL 80-100 [facility] Monocytes Auto (Bld) [#/Vol] Ordered By: Rosa Romo on 03-19-2023 Monocytes (Bld) [#/Vol] 0.5 10*3/uL 0.0-0.8 [facility] Monocytes/100 WBC Auto (Bld) Ordered By: Rosa Romo on 03-19-2023 Monocytes/100 WBC (Bld) 7.3 % . [facility] Neutrophils Auto (Bld) [#/Vo l]Ordered By: Rosa Romo on 03-19-2023 Neutrophils (Bld) [#/Vol] 3.5 10*3/uL 1.8-7.7 [facility] Neutrophils/100 WBC Auto (Bl d)Ordered By: Rosa Romo on 03-19-2023 Neutrophils/100 WBC (Bld) 54.1 % . [facility] No Panel InformationOrdered By: Rosa Romo on 03-19-2023 Estimated GFR (CKD-EPI) > 60.0 mL/Min [facility] Creatinine Clearance (Chem 76.42 [facility] Nucleated erythrocytes [Pres ence] in Blood by Automated countOrdered By: Rosa Romo on 03-19-2023 Nucleated RBC Auto Ql (Bld) 0.0 /100{WBC} 0-0.5 [facility] Platelet adequacy [Presence] in Blood by Light microscopyOrdered By: Rosa Romo on 03-19-2023 Platelets LM Ql (Bld) Increased Normal [facility] Platelet mean volume Auto (B ld) [Entitic vol]Ordered By: Rosa Romo on 03-19-2023 Platelet mean volume (Bld) [Entitic vol] 8.5 fL 6.3-10.7 [facility] Platelet morphology finding [Identifier] in BloodOrdered By: Rosa Romo on 03-19-2023 Platelet morphology finding Nom (Bld) Normal Normal [facility] Platelets Auto (Bld) [#/Vol] Ordered By: Rosa Romo on 03-19-2023 Platelets (Bld) [#/Vol] 537 10*3/uL 150-450 [facility] Potassium [Moles/volume] in Serum or PlasmaOrdered By: Rosa Romo on 03-19-2023 Potassium [Moles/Vol] 4.2 mmol/L 3.5-5.1 [facility] Protein [Mass/volume] in Ser um or PlasmaOrdered By: Rosa Romo on 03-19-2023 Protein [Mass/Vol] 6.7 g/dL 6.4-8.9 [facility] RBC Auto (Bld) [#/Vol]Ordere d By: Rosa Romo on 03-19-2023 RBC (Bld) [#/Vol] 4.76 10*6/uL 3.60-5.00 [facility] RBC morphologyOrdered By: Rosie Romo on 03-19-2023 RBC morphology finding Nom (Bld) Normal Normal [facility] Scan and CBCon 03-19-2023 Basophils (Bld) [#/Vol] 0.1 10*3/uL Normal 0.0-0.2 [facility] Comment on above: Performed By: #### S CAN CBC, CMP #### [facility] [address] Basophils/100 WBC (Bld) 0.9 % Normal . [facility] Comment on above: Performed By: #### S CAN CBC, CMP #### [facility] [address] [place] [address] Eosinophils (Bld) [#/Vol] 0.3 10*3/uL Normal 0.0-0.45 [facility] Comment on above: Performed By: #### S CAN CBC, CMP #### [address] Eosinophils/100 WBC (Bld) 4.9 % Normal . [facility] [facility] Comment on above: Performed By: #### S CAN CBC, CMP #### [address] Erythrocyte distribution width (RBC) [Ratio] 15.4 % High 11.9-15.3 [facility] Comment on above: Performed By: #### S CAN CBC, CMP #### [place] [address] [place] Hematocrit (Bld) [Volume fraction] 41.5 % Normal 34.0-46.4 [facility] Comment on above: Performed By: #### S CAN CBC, CMP #### [facility] [address] [place] [address] Hemoglobin (Bld) [Mass/Vol] 13.7 g/dL Normal 11.8-15.4 [facility] Comment on above: Performed By: #### S CAN CBC, CMP #### [address] [place] [address] [place] Lymphocytes (Bld) [#/Vol] 2.1 10*3/uL Normal 1.00-4.8 [facility] Comment on above: Performed By: #### S CAN CBC, CMP #### [address] Lymphocytes/100 WBC (Bld) 32.8 % Normal . [facility] Comment on above: Performed By: #### S CAN CBC, CMP #### [address] MCH (RBC) [Entitic mass] 28.8 pg Normal 24.7-34.3 [facility] Comment on above: Performed By: #### S CAN CBC, CMP #### [address] MCV (RBC) [Entitic vol] 87.1 fL Normal 80-100 [facility] Comment on above: Performed By: #### S CAN CBC, CMP #### [address] Mean Corpuscular HGB Conc 33.1 g/dL Normal 32.0-35.0 [facility] Comment on above: Performed By: #### S CAN CBC, CMP #### [place] [address] [place] Monocytes (Bld) [#/Vol] 0.5 10*3/uL Normal 0.0-0.8 [facility] Comment on above: Performed By: #### S CAN CBC, CMP #### [place] [address] [place] Monocytes/100 WBC (Bld) 7.3 % Normal . [facility] Comment on above: Performed By: #### S CAN CBC, CMP #### [address] Neutrophils (Bld) [#/Vol] 3.5 10*3/uL Normal 1.8-7.7 [facility] Comment on above: Performed By: #### S CAN CBC, CMP #### [address] Neutrophils/100 WBC (Bld) 54.1 % Normal . [facility] Comment on above: Performed By: #### S CAN CBC, CMP #### [address] NRBC% 0.0 /100{WBC} Normal 0-0.5 [facility] Comment on above: Performed By: #### S CAN CBC, CMP #### [address] Platelet Estimate Increased Normal Normal [facility] Comment on above: Performed By: #### S CAN CBC, CMP #### [address] Platelet mean volume (Bld) [Entitic vol] 8.5 fL Normal 6.3-10.7 [facility] Comment on above: Performed By: #### S CAN CBC, CMP #### [address] Platelet Morphology Normal Normal Normal [facility] Comment on above: Result Comment: PERF ORMED BY: [place] [address] PATHOLOGIST [employer] MIGUEL LARSEN M.D. Performed By: #### S CAN CBC, CMP #### [address] Platelets (Bld) [#/Vol] 537 10*3/uL High 150-450 [facility] Comment on above: Performed By: #### S CAN CBC, CMP #### [address] RBC (Bld) [#/Vol] 4.76 10*6/uL Normal 3.60-5.00 [facility] Comment on above: Performed By: #### S CAN CBC, CMP #### [address] RBC morphology finding Nom (Bld) Normal Normal Normal [facility] Comment on above: Performed By: #### S CAN CBC, CMP #### [facility] [address] WBC (Bld) [#/Vol] 6.5 10*3/uL Normal 3.8-11.6 [facility] Comment on above: Performed By: #### S CAN CBC, CMP #### [facility] [address] Serum or plasma albumin/glob ulin mass ratioOrdered By: Rosa Romo on 03-19-2023 Albumin/Globulin [Mass ratio] 2.0 {ratio} [facility] Serum or plasma anion gap de terminationOrdered By: Rosa Romo on 03-19-2023 Anion gap [Moles/Vol] 9.3 mmol/L 6.0-15.0 [facility] Serum or plasma high density lipoprotein (HDL) cholesterol measurementOrdered By: Zeus Lamas on 03-19-2023 Cholesterol in HDL [Mass/Vol] 44 mg/dL [facility] Comment on above: HDL CHOL ATP-III CLA SSIFICATION Cardiovascular RiskHDL > or equal to 60 mg/dL LOWHDL < 40 mg/dL HIGH Serum or plasma total choles terol/high density lipoprotein (HDL) cholesterol mass ratOrdered By: Zeus Lamas on 03-19-2023 Cholesterol.total/Chol esterol in HDL [Mass ratio] 4.1 {ratio} <5.0 [facility] Sodium [Moles/volume] in Ser um or PlasmaOrdered By: Rosa Romo on 03-19-2023 Sodium [Moles/Vol] 141 mmol/L 136-145 [facility] Triglyceride [Mass/volume] i n Serum or PlasmaOrdered By: Zeus Lamas on 03-19-2023 Triglyceride [Mass/Vol] 62 mg/dL 0-149 [facility] Comment on above: TRIG ATP III CLASSIF ICATIONTRIG less than 150 mg/dL NormalTRIG 150-199 mg/dL Borderline highTRIG 200-500 mg/dL High TRIG greater than 500 mg/dL Very highStandard traceable to the Center for Disease Conrtrol and Prevention (CDC) test method. Urea nitrogen [Mass/volume] in Serum or PlasmaOrdered By: Rosa Romo on 03-19-2023 Urea nitrogen [Mass/Vol] 13 mg/dL 12-19 [facility] WBC Auto (Bld) [#/Vol]Ordere d By: Rosa Romo on 03-19-2023 WBC (Bld) [#/Vol] 6.5 10*3/uL 3.8-11.6 [facility] Complete Blood Count Auto Di ffon 09-22-2022 Basophils (Bld) [#/Vol] 0.1 10*3/uL Normal 0.0-0.2 [facility] Comment on above: Result Comment: PERF ORMED BY: [place] [address] PATHOLOGIST [employer] MIGUEL LARSEN M.D. Performed By: #### C BC #### [address] Basophils/100 WBC (Bld) 0.7 % Normal . [facility] Comment on above: Performed By: #### C BC #### [address] Eosinophils (Bld) [#/Vol] 0.3 10*3/uL Normal 0.0-0.45 [facility] Comment on above: Performed By: #### C BC #### [address] Eosinophils/100 WBC (Bld) 4.4 % Normal . [facility] Comment on above: Performed By: #### C BC #### [address] Erythrocyte distribution width (RBC) [Ratio] 14.7 % Normal 11.9-15.3 [facility] Comment on above: Performed By: #### C BC #### [address] Hematocrit (Bld) [Volume fraction] 42.0 % Normal 34.0-46.4 [facility] Comment on above: Performed By: #### C BC #### [address] Hemoglobin (Bld) [Mass/Vol] 13.7 g/dL Normal 11.8-15.4 [facility] Comment on above: Performed By: #### C BC #### [address] Lymphocytes (Bld) [#/Vol] 1.8 10*3/uL Normal 1.00-4.8 [facility] Comment on above: Performed By: #### C BC #### [address] Lymphocytes/100 WBC (Bld) 22.7 % Normal . [facility] Comment on above: Performed By: #### C BC #### [address] MCH (RBC) [Entitic mass] 28.8 pg Normal 24.7-34.3 [facility] Comment on above: Performed By: #### C BC #### [address] MCV (RBC) [Entitic vol] 88.4 fL Normal 80-100 [facility] Comment on above: Performed By: #### C BC #### [address] Mean Corpuscular HGB Conc 32.6 g/dL Normal 32.0-35.0 [facility] Comment on above: Performed By: #### C BC #### [address] Monocytes (Bld) [#/Vol] 0.5 10*3/uL Normal 0.0-0.8 [facility] Comment on above: Performed By: #### C BC #### [place] [address] [place] Monocytes/100 WBC (Bld) 6.5 % Normal . [facility] Comment on above: Performed By: #### C BC #### [address] Neutrophils (Bld) [#/Vol] 5.1 10*3/uL Normal 1.8-7.7 [facility] Comment on above: Performed By: #### C BC #### [facility] [address] [place] [id number] [facility] Neutrophils/100 WBC (Bld) 65.7 % Normal . [facility] Comment on above: Performed By: #### C BC #### [facility] [address] NRBC% 0.1 /100{WBC} Normal 0-0.5 [facility] Comment on above: Performed By: #### C BC #### [address] Platelet mean volume (Bld) [Entitic vol] 8.5 fL Normal 6.3-10.7 [facility] Comment on above: Performed By: #### C BC #### [address] Platelets (Bld) [#/Vol] 551 10*3/uL High 150-450 [facility] Comment on above: Performed By: #### C BC #### [address] RBC (Bld) [#/Vol] 4.75 10*6/uL Normal 3.60-5.00 [facility] Comment on above: Performed By: #### C BC #### [address] WBC (Bld) [#/Vol] 7.7 10*3/uL Normal 3.8-11.6 [facility] Comment on above: Performed By: #### C BC #### [place] [address] [place] Basophils Auto (Bld) [#/Vol] Ordered By: Rosa Romo on 03-22-2022 Basophils (Bld) [#/Vol] 0.1 10*3/uL 0.0-0.2 [facility] Basophils/100 WBC Auto (Bld) Ordered By: Rosa Romo on 03-22-2022 Basophils/100 WBC (Bld) 0.9 % . [facility] Body fluid albumin measureme nt (mass/volume)Ordered By: Rosa Romo on 03-22-2022 Albumin (Body fld) [Mass/Vol] 4.3 g/dL 3.2-5.5 [facility] Creatinine and Glomerular fi ltration rate.predicted panel (S/P/Bld)Ordered By: Rosa Romo on 03-22-2022 Creatinine [Mass/Vol] 0.79 mg/dL 0.44-1.03 [facility] Eosinophils Auto (Bld) [#/Vo l]Ordered By: Rosa Romo on 03-22-2022 Eosinophils (Bld) [#/Vol] 0.2 10*3/uL 0.0-0.45 [facility] Eosinophils/100 WBC Auto (Bl d)Ordered By: Rosa Romo on 03-22-2022 Eosinophils/100 WBC (Bld) 2.4 % . [facility] Erythrocyte distribution wid th Auto (RBC) [Ratio]Ordered By: Rosa Romo on 03-22-2022 Erythrocyte distribution width (RBC) [Ratio] 14.7 % 11.9-15.3 [facility] Estimated glomerular filtrat ion rate (GFR) non- AmericanOrdered By: Rosa Romo on 03-22-2022 GFR/1.73 sq M.predicted among non-blacks MDRD (S/P/Bld) [Vol rate/Area] > 60 mL/Min [facility] Globulin Calc (S) [Mass/Vol] Ordered By: Rosa Romo on 03-22-2022 Globulin (S) [Mass/Vol] 2.2 g/dL [facility] Hematocrit Auto (Bld) [Volum e fraction]Ordered By: Rosa Romo on 03-22-2022 Hematocrit (Bld) [Volume fraction] 41.9 % 34.0-46.4 [facility] Hemoglobin [Mass/volume] in BloodOrdered By: Rosa Romo on 03-22-2022 Hemoglobin (Bld) [Mass/Vol] 13.6 g/dL 11.8-15.4 [facility] Laboratory - Hematology and Cell countsOrdered By: Rosa Romo on 03-22-2022 Nucleated RBC/100 WBC (Bld) [Ratio] 0.0 % 0-0.5 [facility] Leukocytes [#/volume] in Blo od by Automated countOrdered By: Rosa Romo on 03-22-2022 WBC (Bld) [#/Vol] 8.0 10*3/uL 4.5-11.0 [facility] Lymphocytes Auto (Bld) [#/Vo l]Ordered By: Rosa Romo on 03-22-2022 Lymphocytes (Bld) [#/Vol] 2.0 10*3/uL 1.00-4.8 [facility] Lymphocytes/100 WBC Auto (Bl d)Ordered By: Rosa Romo on 03-22-2022 Lymphocytes/100 WBC (Bld) 24.9 % . [facility] MCH Auto (RBC) [Entitic mass ]Ordered By: Rosa Romo on 03-22-2022 MCH (RBC) [Entitic mass] 29.4 pg 24.7-34.3 [facility] MCHC Auto (RBC) [Mass/Vol]Or dered By: Rosa Romo on 03-22-2022 MCHC (RBC) [Mass/Vol] 32.5 g/dL 32.0-35.0 [facility] MCV Auto (RBC) [Entitic vol] Ordered By: Rosa Romo on 03-22-2022 MCV (RBC) [Entitic vol] 90.4 fL 80-100 [facility] Monocytes Auto (Bld) [#/Vol] Ordered By: Rosa Romo on 03-22-2022 Monocytes (Bld) [#/Vol] 0.4 10*3/uL 0.0-0.8 [facility] Monocytes/100 WBC Auto (Bld) Ordered By: Rosa Romo on 03-22-2022 Monocytes/100 WBC (Bld) 5.2 % . [facility] Neutrophils Auto (Bld) [#/Vo l]Ordered By: Rosa Romo on 03-22-2022 Neutrophils (Bld) [#/Vol] 5.3 10*3/uL 1.8-7.7 [facility] Neutrophils/100 WBC Auto (Bl d)Ordered By: Rosa Romo on 03-22-2022 Neutrophils/100 WBC (Bld) 66.6 % . [facility] No Panel InformationOrdered By: Rosa Romo on 03-22-2022 Estimated GFR () > 60 mL/Min [facility] Comment on above: GFR estimated refere nce range: According to KDOQI guidelines, <60 ml/min/1.73m2 is sufficient to diagnose a patient with chronic kidney disease. Pharmacy Creatinine Clearance (Chem 75.44 [facility] Platelet mean volume Auto (B ld) [Entitic vol]Ordered By: Rosa Romo on 03-22-2022 Platelet mean volume (Bld) [Entitic vol] 8.3 fL 6.3-10.7 [facility] Platelets Auto (Bld) [#/Vol] Ordered By: Rosa Romo on 03-22-2022 Platelets (Bld) [#/Vol] 506 10*3/uL 150-450 [facility] Protein [Mass/volume] in Ser um or PlasmaOrdered By: Rosa Romo on 03-22-2022 Protein [Mass/Vol] 6.5 g/dL 6.1-7.9 [facility] RBC Auto (Bld) [#/Vol]Ordere d By: Rosa Romo on 03-22-2022 RBC (Bld) [#/Vol] 4.63 10*6/uL 3.60-5.00 [facility] Serum or plasma alanine black otransferase measurement without P-5'-P (enzymatic activiOrdered By: Rosa Romo on 03-22-2022 ALT No additional P-5'-P [Catalytic activity/Vol] 17 U/L 10-60 [facility] Serum or plasma albumin/glob ulin mass ratioOrdered By: Rosa Romo on 03-22-2022 Albumin/Globulin [Mass ratio] 2.0 {ratio} [facility] Serum or plasma alkaline laurie sphatase measurement (enzymatic activity/volume)Ordered By: Rosa Romo on 03-22-2022 ALP [Catalytic activity/Vol] 56 U/L 32-92 [facility] Serum or plasma anion gap de terminationOrdered By: Rosa Romo on 03-22-2022 Anion gap [Moles/Vol] 11.6 mmol/L 6.0-15.0 [facility] Serum or plasma aspartate am inotransferase measurement (enzymatic activity/volume)Ordered By: Rosa Romo on 03-22-2022 AST [Catalytic activity/Vol] 22 U/L 10-42 [facility] Serum or plasma calcium los urement (mass/volume)Ordered By: Rosa Romo on 03-22-2022 Calcium [Mass/Vol] 9.7 mg/dL 8.2-10.2 [facility] Serum or plasma chloride theresa surement (moles/volume)Ordered By: Rosa Romo on 03-22-2022 Chloride [Moles/Vol] 100 mmol/L 95-114 [facility] Serum or plasma glucose los urement (mass/volume)Ordered By: Rosa Romo on 03-22-2022 Glucose [Mass/Vol] 123 mg/dL 70-100 [facility] Comment on above: ADA recommended refe rence rangeRandom Glucose Reference Range is dependent on time and content of last meal. Glucose of more than 200 mg/dL in a nonstressed, ambulatory subject supports the diagnosis of Diabetes Mellitus. Serum or plasma potassium me asurement (moles/volume)Ordered By: Rosa Romo on 03-22-2022 Potassium [Moles/Vol] 4.4 mmol/L 3.5-5.1 [facility] Serum or plasma sodium measu rement (moles/volume)Ordered By: Rosa Romo on 03-22-2022 Sodium [Moles/Vol] 137 mmol/L 136-146 [facility] Serum or plasma total biliru bin measurement (mass/volume)Ordered By: Rosa Romo on 03-22-2022 Bilirubin [Mass/Vol] 1.8 mg/dL 0.3-1.2 [facility] Comment on above: Samples from patient s who have taken Naproxen have shown spurious elevation in Total Bilirubin levels. A metabolite of Naproxen, O-desmethylnaproxen, has been shown to interfere with the Sean method for measuring Total Bilirubin. Serum or plasma total carbon dioxide measurement (moles/volume)Ordered By: Rsoa Romo on 03-22-2022 CO2 [Moles/Vol] 29.8 mmol/L 22.0-30.0 [facility] Serum or plasma urea nitroge n measurement (mass/volume)Ordered By: Rosa Romo on 03-22-2022 Urea nitrogen [Mass/Vol] 12 mg/dL 9-23 [facility] Basophils Auto (Bld) [#/Vol] Ordered By: Rosa Romo on 12-20-2021 Basophils (Bld) [#/Vol] 0.0 10*3/uL 0.0-0.2 [facility] Basophils/100 WBC Auto (Bld) Ordered By: Rosa Romo on 12-20-2021 Basophils/100 WBC (Bld) 0.7 % . [facility] Blood hemoglobin measurement (mass/volume)Ordered By: Rosa Romo on 12-20-2021 Hemoglobin (Bld) [Mass/Vol] 13.6 g/dL 11.8-15.4 [facility] Blood leukocytes automated c ount (number/volume)Ordered By: Rosa Romo on 12-20-2021 WBC (Bld) [#/Vol] 6.3 10*3/uL 4.5-11.0 [facility] Body fluid albumin measureme nt (mass/volume)Ordered By: Rosa Romo on 12-20-2021 Albumin (Body fld) [Mass/Vol] 4.7 g/dL 3.2-5.5 [facility] CT biopsyOrdered By: Rosa Galindo se on 12-20-2021 Transferrin [Mass/Vol] 258 mg/dL 180-380 [facility] Cholesterol [Mass/volume] in Serum or PlasmaOrdered By: Zeus Lamas on 12-20-2021 Cholesterol [Mass/Vol] 175 mg/dL 140-200 [facility] Comment on above: Chol less than 200 m g/dl low risk Chol 201-239 mg/dl borderline risk Chol 240 mg/dl and greater high risk Cholesterol in LDL Calc [Mas s/Vol]Ordered By: Zeus Lamas on 12-20-2021 Cholesterol in LDL [Mass/Vol] 119 mg/dL 0-100 [facility] Comment on above: LDL ATP III CLASSIFI CATION LDL less than 100 mg/dL Optimal LDL 100-129 mg/dL Near or above optimal LDL 130-159 mg/dL Borderline high LDL 160-189 mg/dL High LDL greater than 189 mg/dL Very high Cholesterol in VLDL Calc [Ma ss/Vol]Ordered By: Zeus Lamas on 12-20-2021 Cholesterol in VLDL [Mass/Vol] 11 mg/dL [facility] Creatinine and Glomerular fi ltration rate.predicted panel (S/P/Bld)Ordered By: Rosa Romo on 12-20-2021 Creatinine [Mass/Vol] 0.78 mg/dL 0.44-1.03 [facility] Eosinophils Auto (Bld) [#/Vo l]Ordered By: Rosa Romo on 12-20-2021 Eosinophils (Bld) [#/Vol] 0.2 10*3/uL 0.0-0.45 [facility] Eosinophils/100 WBC Auto (Bl d)Ordered By: Rosa Romo on 12-20-2021 Eosinophils/100 WBC (Bld) 2.9 % . [facility] Erythrocyte distribution wid th Auto (RBC) [Ratio]Ordered By: Rosa Romo on 12-20-2021 Erythrocyte distribution width (RBC) [Ratio] 15.6 % 11.9-15.3 [facility] Estimated glomerular filtrat ion rate (GFR) non- AmericanOrdered By: Rosa Romo on 12-20-2021 GFR/1.73 sq M.predicted among non-blacks MDRD (S/P/Bld) [Vol rate/Area] > 60 mL/Min [facility] Ferritin [Mass/volume] in Se rum or PlasmaOrdered By: Rosa Romo on 12-20-2021 Ferritin [Mass/Vol] 278.9 ng/mL 11-306.8 [facility] Globulin Calc (S) [Mass/Vol] Ordered By: Rosa Romo on 12-20-2021 Globulin (S) [Mass/Vol] 2.2 g/dL [facility] Hematocrit Auto (Bld) [Volum e fraction]Ordered By: Rosa Romo on 12-20-2021 Hematocrit (Bld) [Volume fraction] 41.2 % 34.0-46.4 [facility] Iron [Mass/volume] in Serum or PlasmaOrdered By: Rosa Romo on 12-20-2021 Iron [Mass/Vol] 90 ug/dL 40-150 [facility] Iron binding capacity [Mass/ volume] in Serum or PlasmaOrdered By: Rosa Romo on 12-20-2021 Iron binding capacity [Mass/Vol] 361 ug/dL 255-450 [facility] Iron saturation [Mass Fracti on] in Serum or PlasmaOrdered By: Rosa Romo on 12-20-2021 Iron saturation [Mass fraction] 24.0 % 20-50 [facility] Laboratory - Hematology and Cell countsOrdered By: Rosa Romo on 12-20-2021 Nucleated RBC/100 WBC (Bld) [Ratio] 0.0 % 0-0.5 [facility] Lymphocytes Auto (Bld) [#/Vo l]Ordered By: Rosa Romo on 12-20-2021 Lymphocytes (Bld) [#/Vol] 1.7 10*3/uL 1.00-4.8 [facility] Lymphocytes/100 WBC Auto (Bl d)Ordered By: Rosa Romo on 12-20-2021 Lymphocytes/100 WBC (Bld) 26.9 % . [facility] MCH Auto (RBC) [Entitic mass ]Ordered By: Rosa Romo on 12-20-2021 MCH (RBC) [Entitic mass] 29.8 pg 24.7-34.3 [facility] MCHC Auto (RBC) [Mass/Vol]Or dered By: Rosa Romo on 12-20-2021 MCHC (RBC) [Mass/Vol] 33.1 g/dL 32.0-35.0 [facility] MCV Auto (RBC) [Entitic vol] Ordered By: Rosa Romo on 12-20-2021 MCV (RBC) [Entitic vol] 90.0 fL 80-100 [facility] Monocytes Auto (Bld) [#/Vol] Ordered By: Rosa Romo on 12-20-2021 Monocytes (Bld) [#/Vol] 0.4 10*3/uL 0.0-0.8 [facility] Monocytes/100 WBC Auto (Bld) Ordered By: Rosa Romo on 12-20-2021 Monocytes/100 WBC (Bld) 6.3 % . [facility] Neutrophils Auto (Bld) [#/Vo l]Ordered By: Rosa Romo on 12-20-2021 Neutrophils (Bld) [#/Vol] 4.0 10*3/uL 1.8-7.7 [facility] Neutrophils/100 WBC Auto (Bl d)Ordered By: Rosa Romo on 12-20-2021 Neutrophils/100 WBC (Bld) 63.2 % . [facility] No Panel InformationOrdered By: Rosa Romo on 12-20-2021 Estimated GFR () > 60 mL/Min [facility] Comment on above: GFR estimated refere nce range: According to KDOQI guidelines, <60 ml/min/1.73m2 is sufficient to diagnose a patient with chronic kidney disease. Pharmacy Creatinine Clearance (Chem 76.40 [facility] Platelet mean volume Auto (B ld) [Entitic vol]Ordered By: Rosa Romo on 12-20-2021 Platelet mean volume (Bld) [Entitic vol] 8.5 fL 6.3-10.7 [facility] Platelets Auto (Bld) [#/Vol] Ordered By: Rosa Romo on 12-20-2021 Platelets (Bld) [#/Vol] 527 10*3/uL 150-450 [facility] Protein [Mass/volume] in Ser um or PlasmaOrdered By: Rosa Romo on 12-20-2021 Protein [Mass/Vol] 6.9 g/dL 6.1-7.9 [facility] RBC Auto (Bld) [#/Vol]Ordere d By: Rosa Romo on 12-20-2021 RBC (Bld) [#/Vol] 4.58 10*6/uL 3.60-5.00 [facility] Serum or plasma alanine black otransferase measurement without P-5'-P (enzymatic activiOrdered By: Rosa Romo on 12-20-2021 ALT No additional P-5'-P [Catalytic activity/Vol] 22 U/L 10-60 [facility] Serum or plasma albumin/glob ulin mass ratioOrdered By: Rosa Romo on 12-20-2021 Albumin/Globulin [Mass ratio] 2.1 {ratio} [facility] Serum or plasma alkaline laurie sphatase measurement (enzymatic activity/volume)Ordered By: Rosa Romo on 12-20-2021 ALP [Catalytic activity/Vol] 52 U/L 32-92 [facility] Serum or plasma aspartate am inotransferase measurement (enzymatic activity/volume)Ordered By: Rosa Romo on 12-20-2021 AST [Catalytic activity/Vol] 24 U/L 10-42 [facility] Serum or plasma calcium los urement (mass/volume)Ordered By: Rosa Romo on 12-20-2021 Calcium [Mass/Vol] 9.9 mg/dL 8.2-10.2 [facility] Serum or plasma chloride theresa surement (moles/volume)Ordered By: Rosa Romo on 12-20-2021 Chloride [Moles/Vol] 100 mmol/L 95-114 [facility] Serum or plasma glucose los urement (mass/volume)Ordered By: Rosa Romo on 12-20-2021 Glucose [Mass/Vol] 89 mg/dL 70-100 [facility] Comment on above: ADA recommended refe rence range Random Glucose Reference Range is dependent on time and content of last meal. Glucose of more than 200 mg/dL in a nonstressed, ambulatory subject supports the diagnosis of Diabetes Mellitus. Serum or plasma high density lipoprotein (HDL) cholesterol measurementOrdered By: Zeus Lamas on 12-20-2021 Cholesterol in HDL [Mass/Vol] 45 mg/dL 35-85 [facility] Comment on above: HDL CHOL ATP-III CLA SSIFICATION Cardiovascular Risk HDL > or equal to 60 mg/dL LOW HDL < 40 mg/dL HIGH Serum or plasma potassium me asurement (moles/volume)Ordered By: Rosa Romo on 12-20-2021 Potassium [Moles/Vol] 4.0 mmol/L 3.5-5.1 [facility] Serum or plasma sodium measu rement (moles/volume)Ordered By: Rosa Romo on 12-20-2021 Sodium [Moles/Vol] 138 mmol/L 136-146 [facility] Serum or plasma total biliru bin measurement (mass/volume)Ordered By: Rosa Romo on 12-20-2021 Bilirubin [Mass/Vol] 1.4 mg/dL 0.3-1.2 [facility] Comment on above: Samples from patient s who have taken Naproxen have shown spurious elevation in Total Bilirubin levels. A metabolite of Naproxen, O-desmethylnaproxen, has been shown to interfere with the Jendrassik-Grof method for measuring Total Bilirubin. Serum or plasma total carbon dioxide measurement (moles/volume)Ordered By: Rosa Romo on 12-20-2021 CO2 [Moles/Vol] 30.2 mmol/L 22.0-30.0 [facility] Serum or plasma total choles terol/high density lipoprotein (HDL) cholesterol mass ratOrdered By: Zesu Lamas on 12-20-2021 Cholesterol.total/Chol esterol in HDL [Mass ratio] 3.9 {ratio} <5.0 [facility] Serum or plasma urea nitroge n measurement (mass/volume)Ordered By: Rosa Romo on 12-20-2021 Urea nitrogen [Mass/Vol] 9 mg/dL 9-23 [facility] Triglyceride [Mass/volume] i n Serum or PlasmaOrdered By: Zeus Lamas on 12-20-2021 Triglyceride [Mass/Vol] 57 mg/dL 35-149 [facility] Comment on above: TRIG ATP III CLASSIF ICATION TRIG less than 150 mg/dL Normal TRIG 150-199 mg/dL Borderline high TRIG 200-500 mg/dL High TRIG greater than 500 mg/dL Very high Standard traceable to the Center for Disease Conrtrol and Prevention (CDC) test method. Complete Blood Counton 05-16 Erythrocyte distribution width (RBC) [Ratio] 14.4 % Normal 11.0-15.0 [facility] Comment on above: Performed By: #### C BC #### [facility] [address] [place], [place] [id number] Hematocrit (Bld) [Volume fraction] 44.4 % Normal 35.0-47.0 [facility] Specialist Comment on above: Performed By: #### C BC #### [facility] [address] [place], [place] [id number] Hemoglobin (Bld) [Mass/Vol] 14.1 g/dL Normal 11.6-15.5 [facility] Comment on above: Performed By: #### C BC #### [facility] [address] [place], [place] [id number] MCH (RBC) [Entitic mass] 28.3 pg Normal 27.0-33.0 [facility] Specialist Comment on above: Performed By: #### C BC #### [facility] [address] [place], [place] [id number] MCHC (RBC) [Mass/Vol] 31.8 g/dL Low 32.0-36.0 [facility] Comment on above: Performed By: #### C BC #### [facility] [address] [place], [place] [id number] MCV (RBC) [Entitic vol] 89 fL Normal 80-100 [facility] Comment on above: Performed By: #### C BC #### [facility] [address] [place], [place] [id number] Platelet mean volume (Bld) [Entitic vol] 10.40 fL Normal 7.50-12.50 [facility] Specialist Comment on above: Performed By: #### C BC #### [facility] [address] [place], [place] [id number] Platelets (Bld) [#/Vol] 555 10*3/uL High 140-400 [facility] Comment on above: Performed By: #### C BC #### [facility] [address] [place], [place] [id number] RBC (Bld) [#/Vol] 4.99 10*6/uL Normal 3.90-5.20 [facility] Comment on above: Performed By: #### C BC #### [facility] [address] [place], [place] [id number] RDW-SD 46.8 fL Normal 37.0-50.0 [facility] Comment on above: Performed By: #### C BC #### [facility] [address] [place], [place] [id number] WBC (Bld) [#/Vol] 6.7 10*3/uL Normal 3.8-11.0 [facility] Comment on above: Performed By: #### C BC #### [facility] [address] [place], [place] [id number] CNOVon 03-17-2021 CNOV Office Visit (CARDMN ) GLORIA ALLEN ([id number]) 1960 F Date Time Provider Department 03/17/21 [...] to seek emergency care. She wore a [facility] event monitor for 12 days in January [...] bearing down or coughing Occur 3x/week Wore [facility] event monitor for 12 days in 01/2021. [...] No sudden deaths, atrial fibrillation. 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 , 3 children, 1 grandchild. Lives in [place], [place] Habits: Tobacco: none. Alcohol: 1 drink [...] acid (RHIANNON (more content not included)... Normal [facility] Telephone (CARDMN) GLORIA ALLEN ([id number]) 1960 F Date Time Provider Department 03/17/21 NIKITA REYES During your visit today, we recorded the following information about you: Philly Nair 03/17/2021 4:06 PM Signed Outside medical records scanned into [email or web address] drive. Disk uploaded to [employer]: Echocardiogram 01/27/2021. Allergies As of Date: 03/17/2021 (Not on File) Date Reviewed: Never Reviewed Reason for Visit: Received Outside Medical Records [[id number]] Problem List As Of Date: 03/17/2021 (None) Encounter Status:Closed by PHILLY NAIR on 03/17/21 [facility] Dorys 12-31-2020 CNCO Letter Text Normal [facility] Neal 12-30-2020 CNPN Telephone (REFPHY) GLORIA ALLEN ([id number]) 1960 F Date Time Provider Department 12/30/20 NO PCP (HISTORICAL) REFPHY During your visit today, we recorded the following information about you: Kyle Crowell 12/30/2020 9:12 AM Signed Patient: Gloria Allen Date of : 1960 Patient phone number: [phone] Referring Provider for the encounter: Zeus Lamas Requesting Provider: Nikita Reyes Reason for requesting visit (RFV/signs and symptoms/diagnosis): palpitations Person calling: via RP fax Return call to: self Medical Records/Insurance Card scanned into [employer]: No Comments: helder Boles 12/31/2020 10:34 AM [...] Encounter Status:Closed by KYLE MUNOZ on 12/30/20 [facility] Neal 12-23-2020 CNPN Telephone (REFPHY) GLORIA ALLEN ([id number]) 1960 F Date Time Provider Department 12/23/20 NO ONE (HISTORICAL) REFPHY During your visit today, we recorded the following information about you: Alexandria Hernandez 12/23/2020 7:19 AM Signed Patient: Gloria Allen Date of : 1960 Patient phone number: [phone] Referring Provider for the encounter: Dr Zeus Lamas Requesting Provider: Dr Wesley Mallory - Cardiology Reason for requesting visit (RFV/signs and symptoms/diagnosis): Tachycardia, palipatations Person calling: caregiver: ASHLEY Return call to: self Medical Records/Insurance Card scanned into [employer]: Yes Comments: Additional records saved to [email or web address] Cheyenne Boles 12/23/2020 9:31 AM Signed HVTI [...] Status:Closed by ALEXANDRIA TERRY on 12/23/20 Normal [facility] Albumin [Mass/volume] in Ser um or PlasmaOrdered By: Rosa Romo on 12-16-2020 Albumin [Mass/Vol] 3.9 g/dL 2.9-4.4 [facility] Immunoglobulin light chains. kappa.free [Mass/volume] in SerumOrdered By: Rosa Romo on 12-16-2020 Immunoglobulin light chains.kappa.free (S) [Mass/Vol] 12.3 mg/L 3.3-19.4 [facility] Immunoglobulin light chains. kappa.free/Immunoglobulin light chains.lambda.free [MassOrdered By: Rosa Romo on 12-16-2020 Immunoglobulin light chains.kappa.free/Immu noglobulin light chains.lambda.free (S) [Mass ratio] 0.83 0.26-1.65 [facility] Comment on above: Performed at: [address] [id number] [employer] Sc[employer] Tech: Osiel Combs PhD, Phone: [phone] Performed at: [address] [id number] Director: Osiel Combs PhD, Phone: [phone] Immunoglobulin light chains. lambda.free [Mass/volume] in Serum or PlasmaOrdered By: Rosa Romo on 12-16-2020 Immunoglobulin light chains.lambda.free [Mass/Vol] 14.8 mg/L 5.7-26.3 [facility] No Panel InformationOrdered By: Rosa Romo on 12-16-2020 25-Hydroxy Vitamin D Total 51.1 ng/mL 30-100 [facility] Comment on above: VITAMIN D STATUS 25( [...] Electrophoresis M-Sonny Not observed g/dL Not Observed [facility] Protein Electrophoresis Note See comment . [facility] Comment on above: Protein electrophore sis scan will follow via computer, mail, or fiscal specialist delivery. Performed at: [address] [id number] [employer] Tech: Osiel Combs PhD, Phone: [phone] Protein electrophore sis scan will follow via computer,mail, or fiscal specialist delivery.Performed at: [address] [id number] Director: Osiel Combs PhD, Phone: [phone] Protein [Mass/volume] in Ser um or PlasmaOrdered By: Rosa Romo on 12-16-2020 Protein [Mass/Vol] 7.0 g/dL 6.0-8.5 [facility] Serum globulin measurement ( mass/volume)Ordered By: Rosa Romo on 12-16-2020 Globulin (S) [Mass/Vol] 3.1 g/dL 2.2-3.9 [facility] Serum or plasma albumin/glob ulin mass ratioOrdered By: Rosa Romo on 12-16-2020 Albumin/Globulin [Mass ratio] 1.3 {ratio} 0.7-1.7 [facility] Serum or plasma alpha 1 glob ulin measurement by electrophoresis (mass/volume)Ordered By: Rosa Romo on 12-16-2020 Alpha 1 globulin Elph [Mass/Vol] 0.2 g/dL 0.0-0.4 [facility] Serum or plasma alpha 2 glob ulin measurement by electrophoresis (mass/volume)Ordered By: Rosa Romo on 12-16-2020 Alpha 2 globulin Elph [Mass/Vol] 0.7 g/dL 0.4-1.0 [facility] Serum or plasma beta globuli n measurement by electrophoresis (mass/volume)Ordered By: Rosa Romo on 12-16-2020 Beta globulin Elph [Mass/Vol] 1.1 g/dL 0.7-1.3 [facility] Serum or plasma calcitriol m easurement (mass/volume)Ordered By: Rosa Romo on 12-16-2020 1,25-dihydroxyvitamin D3 [Mass/Vol] 60.1 pg/mL 19.9-79.3 [facility] Comment on above: Performed at: [facility] [address] [id number] [employer] Tech: Mitchell Glynn MD, Phone: [phone] Performed at: [facility] [address] [id number] Director: Mitchell Glynn MD, Phone: [phone] Serum or plasma gamma globul in measurement by electrophoresis (mass/volume)Ordered By: Rosa Romo on 12-16-2020 Gamma globulin Elph [Mass/Vol] 1.0 g/dL 0.4-1.8 [facility] Serum or plasma intact parat hyroid hormone measurement (mass/volume)Ordered By: Rosa Romo on 12-16-2020 Parathyrin.intact [Mass/Vol] 44.6 pg/mL 12-88 [facility] TSH DL <= 0.005 mIU/L QnOrde red By: Rosa Romo on 12-16-2020 TSH Qn 1.61 m[IU]/L 0.45-5.33 [facility] Thyroxine (T4) free [Mass/vo lume] in Serum or PlasmaOrdered By: Rosa Romo on 12-16-2020 Free T4 [Mass/Vol] 0.73 ng/dL 0.61-1.12 [facility] Activated partial thrombopla stin time (aPTT) in platelet poor plasma by coagulation aon 06-15-2020 aPTT Coag (PPP) [Time] 28.4 s 22.9-30.2 [facility] - Coagulationon 0 06-15-2020 PT Coag (PPP) [Time] 11.2 s 9.1-12.0 [facility] No Panel Informationon 06-15 Coagulation Factor VIII Activity 116 % 56-140 [facility] Platelet poor plasma interna tional normalized ratio (INR) by coagulation assay (relaton 06-15-2020 INR Coag (PPP) [Relative time] 1.1 {INR} 0.9-1.2 [facility] Comment on above: INR Therapeutic Rang e [...] multimers IB Nom (PPP) See comment . [facility] Comment on above: VWF multimer analysi s [...] developed and its performance characteristics determined by [employer]. It has not been cleared or approved by the Food and Drug Administration. Performed at: [employer] [address] [facility] [address] [id number] [employer] Tech: Sivakumar Mejia MD, Phone: [phone] VWF multimer analysi s demonstrates a normal pattern anddistribution of bands. This is the pattern of multimersthat occurs in normal individuals as well as in those withtype 1 von Willebrand disease (VWD), type 2M and type 2NVWD. Some acquired von Willebrand syndrome cases may yielda normal pattern as well.No additional results available for further interpretation.This test was developed and its performance characteristicsdetermined by [employer]. It has not been cleared or approvedby the Food and Drug Administration.Performed at: [employer] [address] [id number] Director: Sivakumar Mejia MD, Phone: [phone] Von Willebrand factor activi ty measurementon 06-15-2020 vWf ristocetin cofactor act actual/normal Platelet aggregation (PPP) [Relative time] 62 % 50-200 [facility] Comment on above: Performed at: [facility] [id number] [employer] Tech: Mitchell Glynn MD, Phone: [phone] Performed at: [facility] [address] [id number] Director: Mitchell Glynn MD, Phone: [phone] Von Willebrand factor antige n measurementon 06-15-2020 vWf Ag Qn (PPP) 86 % 50-200 [facility] Comment on above: This test was develo ped and its performance characteristics determined by [facility]. It has not been cleared or approved by the Food and Drug Administration. This test was develo ped and its performance characteristicsdetermined by [facility]. It has not been cleared orapproved by the Food and Drug Administration. No Panel Informationon 06-04 BCR/abl See comment [facility] Comment on above: See report. Scanned copy available in EMR. Calreticulin Mutation See comment [facility] Comment on above: See report. Scanned copy available in EMR.See report. Scanned copy available in EMR. --- 06/11/20799 --- Calr previously reported as: See report. Scanned copy available in EMR. See report. Scanned copy available in EMR.See report. Scanned copy available in EMR. --- 06/11/20799 ---Calr previously reported as: See report. Scanned copy available in EMR. JAK2 [id number] See comment [facility] Comment on above: See report. Scanned [...] in EMR. MPL Mutation Analysis See comment [facility] Comment on above: See report. Scanned copy available in EMR. C reactive protein [Mass/vol ume] in Serum or Plasmaon 05-31-2020 CRP [Mass/Vol] < 0.5 mg/dL 0.0-1.0 [facility] - Hematology and Cell countson 05-31-2020 WBC (Bld) [#/Vol] 8.9 10*3/uL 4.5-11.0 [facility] Serum homogeneous pattern an tinuclear antibody (STEPHANIE) titeron 05-31-2020 Homogenous nuclear Ab pattern (S) [Titer] N/A [facility] Serum nuclear antibody titer on 05-31-2020 Nuclear Ab (S) [Titer] Negative . [facility] Comment on above: Negative <1:80 Borderline 1:80 Positive >1:80 Performed at: [facility] [address] [place] [id number] [employer] Tech: Osiel Combs PhD, Phone: [phone] Negative <1:80 Borde rline 1:80 Positive >1:80Performed at: [employer] [address] [id number] Director: Osiel Combs PhD, Phone: [phone] Serum or plasma rheumatoid f actor measurement (units/volume)on 05-31-2020 Rheumatoid factor Qn [IU]/mL 0.0-13.9 [facility] Comment on above: Performed at: [employer] [address] [id number] [employer] Tech: Osiel Combs PhD, Phone: [phone] Performed at: [employer] [address] [id number] Director: Osiel Combs PhD, Phone: [phone] OVER READ - NCon 12-20-2017 OVER READ [...] extra arterial structures are otherwise unremarkable. Normal [facility] Vital Signs Date Time Vital Sign Value Performing Clinician Houston mathew 03-21-2023 11:11-0400 Body temperature 97.8 [degF] DO Zeus Vaschak Work Phone: [facility] 03-21-2023 11:110400 Body weight 74.38 kg DO Zeus Vaschak Work Phone: [facility] 03-21-2023 11:11-0400 Diastolic blood pressure 77 mm[Hg] DO Zeus Vaschak Work Phone: [facility] 03-21-2023 11:11-0400 Heart rate 64 /min DO Ezus Vaschak Work Phone: [facility] 03-21-2023 11:11-0400 Respiratory rate 16 /min DO Zeus Vaschak Work Phone: [facility] 03-21-2023 11:11-0400 SaO2% (BldA) [Mass fraction] 98 % DO Zeus Vaschak Work Phone: [facility] 03-21-2023 11:11-0400 Systolic blood pressure 132 mm[Hg] DO Zeus Vaschak Work Phone: [facility] 03-24-2022 11:17-0400 Body temperature 97.8 [degF] DO Zeus Vaschak Work Phone: [facility] 03-24-2022 11:170400 Body weight 70.76 kg DO Zeus Vaschak Work Phone: [facility] 03-24-2022 11:17-0400 Diastolic blood pressure 81 mm[Hg] DO Zeus Vaschak Work Phone: [facility] 03-24-2022 11:17-0400 Heart rate 58 /min DO Zeus Vaschak Work Phone: [facility] 03-24-2022 11:17-0400 Respiratory rate 16 /min DO Zeus Vaschak Work Phone: [facility] 03-24-2022 11:17-0400 SaO2% (BldA) [Mass fraction] 100 % DO Zeus Vaschak Work Phone: [facility] 03-24-2022 11:17-0400 Systolic blood pressure 133 mm[Hg] DO Zeus Vaschak Work Phone: [facility] 12-23-2021 14:43-0400 Body temperature 97.8 [degF] DO Zeus Cristinachak Work Phone: [facility] 12-23-2021 14:43-0400 Body weight 69.85 kg DO Zeus Vaschak Work Phone: [facility] 12-23-2021 14:43-0400 Diastolic blood pressure 75 mm[Hg] DO Zeus Vaschak Work Phone: [facility] 12-23-2021 14:43-0400 Heart rate 62 /min DO Zeus Cristinachak Work Phone: [facility] 12-23-2021 14:43-0400 Respiratory rate 16 /min DO Zeus Vaschak Work Phone: [facility] 12-23-2021 14:43-0400 SaO2% (BldA) [Mass fraction] 99 % DO Zeus Vaschak Work Phone: [facility] 12-23-2021 14:43-0400 Systolic blood pressure 126 mm[Hg] DO Zeus Vaschak Work Phone: [facility] 05-31-2020 13:09-0500 Body height 172.72 cm DO Zeus Vaschak Work Phone: [facility] Encounters Encounter Date Encounter Type Care Provider Facility Start: 09-12-2023 ambulatory Rosa Demetrius Facility:[facility] Start: 09-11-2023 End: 09-11-2023 ambulatory Mckenzie Perkins Facility:[facility] Start: 09-11-2023 End: 09-11-2023 ambulatory DO Zeus Lamas Work Phone: [facility] Work Phone: Start: 09-11-2023 End: 09-11-2023 Patient encounter procedure DO Zeus Thornek Work Phone: [facility] Work Phone: Start: 06-05-2023 End: 06-05-2023 ambulatory MCKENZIE PERKINS Not Available Start: 03-21-2023 End: 03-21-2023 ambulatory DO Zeus Lamas Work Phone: [facility] Work Phone: Start: 03-21-2023 End: 03-21-2023 Registered Recurring DO Zeus Matik Work Phone: [facility] Work Phone: Start: 03-19-2023 End: 03-19-2023 ambulatory Zeus Cydney Facility:[facility] Start: 03-19-2023 Encounter for genera l adult medical examination without abnormal findings Zeus Lamas [facility] Start: 03-19-2023 Registered Recurring DO Zeus Matik Work Phone: [facility] Work Phone: Start: 03-19-2023 End: 03-19-2023 ambulatory DO Zeus Matik Work Phone: [facility] Work Phone: Start: 03-19-2023 End: 03-19-2023 Patient encounter procedure DO Zeus Matik Work Phone: [facility] [place] Work Phone: Start: 09-08-2022 End: 09-08-2022 ambulatory DO Zeus Lamas Work Phone: [facility] Work Phone: Start: 09-08-2022 End: 09-08-2022 Patient encounter procedure DO Zeus Lamas Work Phone: [facility] Work Phone: Start: 08-31-2022 End: 08-31-2022 ambulatory DO Zeus Lamas Work Phone: [facility] Work Phone: Start: 08-31-2022 End: 08-31-2022 Patient encounter procedure DO Zeus Lamas Work Phone: [facility] Work Phone: Start: 03-24-2022 End: 03-24-2022 ambulatory DO Zeus Lamas Work Phone: [facility] Work Phone: Start: 03-24-2022 End: 03-24-2022 Registered Recurring DO [facility] Start: 12-23-2021 End: 12-23-2021 Registered Recurring DO [facility] Lam[facility] Start: 12-20-2021 End: 12-20-2021 Patient encounter procedure DO Zeus Lamas Work Phone: [facility] [place] Start: 12-20-2017 Patient encounter ZEUS LAMAS Fac [...] Detail Author Start: 12-23-2021 Registered Recurring Thrombocytosis [facility] Start: 09-28-2021 [facility] Start: 09-21-2021 [facility] Start: 08-19-2021 [facility] Comprehensive metabo lic 1999 panel - Serum or Plasma [facility] Work Phone: Comprehensive metabo lic 1999 panel - Serum or Plasma [facility] Comprehensive metabo lic 1999 panel - Serum or Plasma [facility] Payers Date Payer Category Payer Self-pay [id number] 2020 Unknown [id number] 2020 Unknown [id number] 1960 Unknown [id number] .16.84 [id number] Unknown TIFFANY TENORIO Unknown [id number] .16.8 [id number] Unknown [id number] .16.8 [id number] Unknown [id number] .16.8 [id number] Social History Date Type Detail Facility Start: 12-23-2021 End: 03-24-2022 Tobacco smoking status NHIS Never smoked tobacco (finding) [facility] Start: 1960 Sex Assigned At Female F [facility] Clinical Notes 05-31-2020 to 03-24-2022 Note Date & Type Note Facility 03-24-2022 Progress note Note Date/Time March 24, 2022 11:23[facility] at [address] [address] Hem/Onc Follow Up Note - OP Signed Patient: Gloria Allen MR#: [id number] : 1960 Acct:[id number] Age/Sex: 61 / F Type: REG RCR [...] iron stores in one month (f/u with [facility]). If platelets < 450,000 at that time, [...] 03/24/22 @ 16:09 by Rosa Romo MD) Pawling teeth removed - Family History Family History: [...] % (Auto) 66.6, Lymph % (Auto) 24.9, [place] % (Auto) 5.2, Eos % (Auto) 2.4, Baso % (Auto) 0.9, Neut # (Auto) 5.3, Lymph # (Auto) 2.0, [place] # (Auto) 0.4, Eos # (Auto) 0.2, [...] 4-6 weeks to review iron studies with [facility], 4 month f/u CBC and determine cytoreduction [...] for coordination of care (as documented) and [id number] counseling of patient and/or family. Dictated By: Rosa Romo MD DD/ 1122 Signed By: <Electronically signed by MD Rosa Romo> 03/24/22 1611 [facility] Work Phone: [phone]) 336-205107-30-2022 Progress note Author Rosa Romo [facility] [facility] December 24, 2021 4:39pm Note Date/Time December 23, 2021 2:49 pm [facility] at [address] [address] Hem/Onc Follow Up Note - OP Signed Patient: Gloria Allen MR#: [id number] : 1960 Acct:[id number] Age/Sex: 61 / F Type: REG RCR [...] iron stores in one month (f/u with [facility]). If platelets < 450,000 at that time, [...] Negative for environmental allergies and food allergies. [facility] - History Attestation statement: The following information was validated with the patient. Source: Old Records Reviewed - Medical History Medical History: Medical History (Last Reviewed 12/24/21 @ 16:34 by Rosa Romo MD) delivery delivered - Surgical History Surgical History: Surgical History (Last Reviewed 12/24/21 @ 16:34 by Rosa Romo MD) Pawling teeth removed - Family History Family History: [...] % (Auto) 63.2, Lymph % (Auto) 26.9, [place] % (Auto) 6.3, Eos % (Auto) 2.9, Baso % (Auto) 0.7, Neut # (Auto) 4.0, Lymph # (Auto) 1.7, [place] # (Auto) 0.4, Eos # (Auto) 0.2, [...] 4-6 weeks to review iron studies with [facility], 4 month f/u CBC and determine cytoreduction [...] for coordination of care (as documented) and kchx-pf-dpdu counseling of patient and/or family. Dictated By: Rosa Romo MD DD/ 1448 Signed By: <Electronically signed by MD Rosa Romo> 12/24/21 5322 [facility] Work Phone: 1(176) 563-895404-23-2022 Progress note Author Rosa Romo [facility] September 17, 2021 6:26pm Note Date/Time September 16, 2021 12: 45pm [facility] [place] at [address] [address] Hem/Onc Follow Up Note - OP Signed Patient: Gloria Allen MR#: [id number] : 1960 Acct:[id number] Age/Sex: 61 / F Type: REG RCR [...] iron stores in one month (f/u with [facility]). If platelets < 450,000 at that time, [...] Negative for environmental allergies and food allergies. [facility] - History Attestation statement: The following information was validated with the patient. Source: Old Records Reviewed - Medical History Medical History: Medical History (Last Reviewed 09/17/21 @ 18:19 by Rosa Romo MD) delivery delivered - Surgical History Surgical History: Surgical History (Last Reviewed 09/17/21 @ 18:19 by Rosa Romo MD) Pawling teeth removed - Family History Family History: [...] 4-6 weeks to review iron studies with [facility], 4 month f/u CBC and determine cytoreduction [...] for coordination of care (as documented) and eypx-mc-vlig counseling of patient and/or family. Dictated By: Rosa Romo MD DD/ 1245 Signed By: <Electronically signed by MD Rosa Romo> 09/17/21 8697 [facility] Work Phone: 1(381) 749-620903-25-2022 Procedure [facility]12-23-2021 Progress note Author Rosa Romo [facility] May 19, 2021 7:48pm Note Date/Time May 19, 2021 3:41pm [facility] at [address] [address] Hem/Onc Follow Up Note - OP Signed Patient: Gloria Allen MR#: [id number] : 1960 Acct:[id number] Age/Sex: 61 / F Type: REG RCR [...] Negative for environmental allergies and food allergies. [facility] - History Attestation statement: The following information was validated with the patient. Source: Old Records Reviewed - Medical History Medical History: Medical History (Last Reviewed 05/19/21 @ 15:43 by Rosa Romo MD) delivery delivered - Surgical History Surgical History: Surgical History (Last Reviewed 05/19/21 @ 15:43 by Rosa Romo MD) Pawling teeth removed - Family History Family History: [...] 08:50 12/16/20 08:50 Outside Labs: Labs at [facility] laboratory: 05/16/2021: White blood cells 6700, [...] noted on monitoring. Transcribed By: ELIZABETH 03/17/21 5944 Dictated By: Zeus Lamas DO 03/16/21 6958 Assessment and Plan - TNM Staging Staging: [...] for coordination of care (as documented) and cmbz-pc-smyi counseling of patient and/or family. Dictated By: Rosa Romo MD DD/ 33 Signed By: <Electronically signed by MD Rosa Romo> 05/19/211947 [facility] Work Phone: 1(866) 537-733610-21-2021 NoteHNO ID: [id number] Author: Nikita Reyes MD Service: ? Author [...] to seek emergency care. She wore a [facility] event monitor for 12 days in January [...] bearing down or coughing Occur 3x/week Wore [facility] event monitor for 12 days in 01/2021. [...] No sudden deaths, atrial fibrillation. 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 , 3 children, 1 grandchild. Lives in [place], [place] Habits: Tobacco: none. Alcohol: 1 drink [...] mg tablet T (more content not included)... [facility]08-03-2021 Progress note Author Rosa Romo [facility] December 28, 2020 7:12am Note Date/Time December 27, 2020 3:4 6pm [facility] [place] [address] Hem/Onc Follow Up Note - OP Signed Patient: Gloria Allen MR#: [id number] : 1960 Acct:[id number] Age/Sex: 60 / F Type: REG RCR [...] 12/28/20 @ 07:08 by Rosa Romo MD) Pawling teeth removed - Family History Family History: [...] for coordination of care (as documented) and scxf-ql-kiej counseling of patient and/or family. Dictated By: Rosa Romo MD DD/ 1545 Signed By: <Electronically signed by MD Rosa Romo> 12/28/20 0712 [facility] Work Phone: 1(681) 293-585204-20-2021 Progress note Author Rosa Romo [facility] September 14, 2020 7:40pm Note Date/Time September 13, 2020 4:0 3pm [facility] [place] [address] Hem/Onc Follow Up Note - OP Signed Patient: Gloria Allen MR#: [id number] : 1960 Acct:[id number] Age/Sex: 60 / F Type: REG RCR [...] Negative for environmental allergies and food allergies. [facility] - History Attestation statement: The following information was validated with the patient. Source: Old Records Reviewed - Medical History Medical History: Medical History (Last Reviewed 09/14/20 @ 19:34 by Rosa Romo MD) delivery delivered - Surgical History Surgical History: Surgical History (Last Reviewed 09/14/20 @ 19:34 by Rosa Romo MD) Pawling teeth removed - Family History Family History: [...] % (Auto) 70.2, Lymph % (Auto) 19.6, [place] % (Auto) 7.3, Eos % (Auto) 2.3, Baso % (Auto) 0.6, Neut # (Auto) 6.0, Lymph # (Auto) 1.7, [place] # (Auto) 0.6, Eos # (Auto) 0.2, [...] for coordination of care (as documented) and ndpb-kt-khez counseling of patient and/or family. Dictated By: Rosa Romo MD DD/ 2625 Signed By: <Electronically signed by MD Rosa Romo> 09/14/201939 [facility] Work Phone: 1(162) 124-156601-18-2021 Progress note Author Rosa Romo [facility] June 14, 2020 4:10pm Note Date/Time June 14, 2020 3 :26pm [facility] [place] [id number] Hem/Onc Follow Up Note - OP Signed Patient: Gloria Allen MR#: [id number] : 1960 Acct:[id number] Age/Sex: 60 / F Type: REG RCR [...] 06/14/20 @ 15:59 by Rosa Romo MD) delivery delivered - Surgical History Surgical History: Surgical History (Last Reviewed 06/14/20 @ 15:59 by Rosa Romo MD) Pawling teeth removed - Family History Family History: [...] for coordination of care (as documented) and eicx-ml-trkf counseling of patient and/or family. Dictated By: Rosa Romo MD DD/ 1525 Signed By: <Electronically signed by MD Rosa Romo> 06/14/20 1610 [facility] Work Phone: 1(210) [phone] Consult note Author Rosa Romo [facility] May 31, 2020 8:56pm Note Date/Time May 31, 2020 1: 29pm [facility] [place] [address] Hem/Onc Consult Note - OP Signed Patient: Gloria Allen MR#: [id number] : 1960 Acct:[id number] Age/Sex: 60 / F Type: REG RCR [...] address epigastric pain with you in followup. [facility] - Medical History Medical History: Medical History (Last Reviewed 05/31/20 @ 20:40 by Rosa Romo MD) delivery delivered - Surgical History Surgical History: Surgical History (Last Reviewed 05/31/20 @ 20:40 by Rosa Romo MD) Pawling teeth removed - Family History Family History: [...] for coordination of care (as documented) and kiyl-yf-pacb counseling of patient and/or family. Dictated By: Rosa Romo MD DD/ 1329 Signed By: <Electronically signed by MD Rosa Romo> 05/31/202055 [facility] Work Phone: Evaluation note* Diagnosis Onset Date Resolution Status Thrombocytosis acute Epigastric pain chronic Essential thrombocytosis chr onic Iron deficiency anemia chron ic [facility] Work Phone: Evaluation noteNo assessment information available [facility] Work Phone: Evaluation note* Diagnosis Onset Date Resolution Status Thrombocytosis acute Epigastric pain chronic Essential thrombocytosis chr onic Iron deficiency anemia resol chelly [facility] Work Phone: Progress note Author Rosa Romo [facility] December 24, 2021 4:39pm Note Date/Time December 23, 2021 2:49 pm [facility] [place] [id number] Hem/Onc Follow Up Note - OP Signed Patient: Gloria Allen MR#: [id number] : 1960 Acct:[id number] Age/Sex: 61 / F Type: REG RCR [...] iron stores in one month (f/u with [facility]). If platelets < 450,000 at that time, [...] Negative for environmental allergies and food allergies. [facility] - History Attestation statement: The following information was validated with the patient. Source: Old Records Reviewed - Medical History Medical History: Medical History (Last Reviewed 12/24/21 @ 16:34 by Rosa Romo MD) delivery delivered - Surgical History Surgical History: Surgical History (Last Reviewed 12/24/21 @ 16:34 by Rosa Romo MD) Pawling teeth removed - Family History Family History: [...] % (Auto) 63.2, Lymph % (Auto) 26.9, [place] % (Auto) 6.3, Eos % (Auto) 2.9, Baso % (Auto) 0.7, Neut # (Auto) 4.0, Lymph # (Auto) 1.7, [place] # (Auto) 0.4, Eos # (Auto) 0.2, [...] 4-6 weeks to review iron studies with [facility], 4 month f/u CBC and determine cytoreduction [...] for coordination of care (as documented) and acgd-zi-yyes counseling of patient and/or family. Dictated By: Rosa Romo MD DD/ 1448 Signed By: <Electronically signed by MD Rosa Romo> 12/24/21 1636 [facility] Work Phone: Progress note Author Rosa Romo [facility] March 24, 2022 4:15pm Note Date/Time March 24, 2022 1 1:23am [facility] [place] [address] Hem/Onc Follow Up Note - OP Signed Patient: Gloria Allen MR#: [id number] : 1960 Acct:[id number] Age/Sex: 61 / F Type: REG RCR Copies to: Zeus Lamas DO~ Subjective Date/Time of Service: Date of Service: 03/24/2022 Time of Service: 11:22 Chief Complaint: Patient is here today for a 3 month followup visit and go over labs. No new concerns HPI: 03/24/2022: Gloira returns for 3-month follow-up, still denying any [...] iron stores in one month (f/u with [facility]). If platelets < 450,000 at that time, [...] Negative for environmental allergies and food allergies. [facility] - History Attestation statement: The following information was validated with the patient. Source: Old Records Reviewed - Medical History Medical History: Medical History (Last Reviewed 03/24/22 @ 16:09 by Rosa Romo MD) delivery delivered - Surgical History Surgical History: Surgical History (Last Reviewed 03/24/22 @ 16:09 by Rosa Romo MD) Pawling teeth removed - Family History Family History: [...] % (Auto) 66.6, Lymph % (Auto) 24.9, [place] % (Auto) 5.2, Eos % (Auto) 2.4, Baso % (Auto) 0.9, Neut # (Auto) 5.3, Lymph # (Auto) 2.0, [place] # (Auto) 0.4, Eos # (Auto) 0.2, [...] 4-6 weeks to review iron studies with [facility], 4 month f/u CBC and determine cytoreduction [...] for coordination of care (as documented) and phoe-cd-lwzn counseling of patient and/or family. Dictated By: Rosa Romo MD DD/ 1122 Signed By: <Electronically signed by MD Rosa Romo> 03/24/22 1618 [facility] Work Phone: Summary Purpose Family History [...] section and content) DATE CREATED AUTHOR 12/21/2017 [facility] DATE CREATED AUTHOR AUTHOR'S ORGANIZ ATION 05/16/2021 [facility] DATE CREATED AUTHOR AUTHOR'S ORGANIZ ATION 06/30/2021 [facility] DATE CREATED AUTHOR AUTHOR'S ORGANIZ ATION 06/06/2023 [facility] dical Specialists [facility] DATE CREATED AUTHOR AUTHOR'S ORGANIZ ATION 09/14/2023 [facility] Care Teams (unrecognized sec tion [...] BE BASED ON THE PRIMARY CLINICAL RECORDS. [facility] [employer] provides no warranty or guarantee of the accuracy or completeness of information in this document.
== END 2023-10-10 14:33 | disposition home or self-care (01) ==
LOC: VC 14:32
PROVIDERS: PCP Radiology Diagnostic Radiology; Visit Provider Radiology Diagnostic Radiology
DX: I80.02 Phlebitis and thrombophlebitis of superficial vessels of left lower extremity (principal)
CPT/HCPCS: 93971; G0463

== ENCOUNTER 2023-10-12 12:31 | Outpatient (OUT) | payer OTHER, SELFPAY ==
--- NOTE | 2023-10-12 12:34 | VEIN_ITS ---
The [address] [address] Patient Name: JONA ALLEN MRN: [id number] date: 1960 Sex: F Assigned Patient Location: Current Patient Location: Accession/Order Number: [id number] Exam Date: 10/12/2023 12:34 Report Date: 10/12/2023 13:47 At the request of: HEMANT MCHUGH Procedure: VC INJ Foam Sclerosant WUS PROTECTIVE CLOTHING ISSUER PROCEDURE: VC INJ Foam Sclerosant WUS PROTECTIVE CLOTHING ISSUER, right leg COMPARISON: None. HISTORY: I83.813 Bilateral leg painful varicose veins Pre-operative Diagnosis: CEAP class C2 venous insufficiency with pain, tenderness, edema and incompetent right great saphenous and varicose vein(s), chronic venous insufficiency right leg secondary to venous incompetence Post-operative Diagnosis: CEAP class C2 venous insufficiency with pain, tenderness, edema and incompetent right great saphenous and varicose vein(s), chronic venous insufficiency right leg secondary to venous incompetence Procedure Performed: 1. Ultrasound-guided microfoam chemical ablation with Varithenaregistered 2. Intraoperative ultrasound guidance Anesthesia: None Indications for Procedure: 63-year-old female who presents with a long history of lower extremity pain with varicose veins. The patient failed conservative medical therapy including medical compression stockings, exercise and analgesics. Prior procedures include a venous laser ablation. Multiple incompetent varicosities of the right leg. Duplex scan showed reflux and enlarged diameters up to 5 mm. The patient underwent informed consent including management options where the complications of infection, bleeding, pain, and skin injury were discussed. Particular attention was spent discussing thrombus extension and deep vein thrombosis as well as the possibility of pulmonary embolus and treatment with oral or injectable blood thinners. Procedure: The patient walked to the procedure room. All applicable staff donned appropriate apparel. A procedure timeout was performed to confirm correct patient, correct extremity, correct procedure, and correct room set-up including presence of all applicable supplies, devices, and drugs. A duplex ultrasound, performed by myself confirmed the location and incompetence of branch saphenous varicosities and their course was marked on the skin together with the dilated tributaries. The extent of treatment of the vein and the associated varicosities was determined through ultrasound mapping. The skin was prepped and then punctured with a butterfly needle and advanced under ultrasound guidance. The Varithenaregistered canister was activated and the canister was primed and purged as required in the instructions for use. Varithenaregistered was drawn into a sterile syringe. The following injections were made: 6 cc injected into the 5 mm incompetent distal right great saphenous vein with flow into multiple saphenous tributaries 5 cc injected into a 4 mm varicose vein anterior proximal lower leg 4 cc injected with 4 mm varicose vein anterior proximal lower leg Varithenaregistered was slowly administered at 0.5-1.0 cc/second with close observation by ultrasound of its course in the vessels. Total volume utilized was: 15cc. Following administration of Varithenaregistered the leg was elevated and the patient was asked to repeatedly dorsiflex the ankle to limit flow of Varithenaregistered into perforating veins. Once appropriate spasm had been confirmed in the treated veins, the vascular catheter was removed from the leg and light pressure was applied over the puncture site for hemostasis. The common femoral and deep superficial veins were then evaluated for flow and compressibility prior to dressing placement. The lower extremity was kept elevated at 45 degrees above the horizontal and cording material was applied over the saphenous segments and tributaries to allow for eccentric compression over the target vessels including the targeted saphenous vein(s). A multilayer dressing was applied consisting of foam pads, coban and thigh-high 20-30 mm Hg compression elastic support hose were placed on the patient. The leg was lowered only after compression had been applied and the patient was immediately ambulatory. The patient ambulated 10 minutes under supervision and was without apparent concerns at time of release. Post-care instructions include advising patient to keep post-treatment bandages in place and dry for 48 hours, avoid extended periods of inactivity, avoid heavy exercise for one week, wear compression stockings on the treated leg continuously for two weeks, to walk daily for 10 minutes over the next month. The patient was instructed to take an anti-inflammatory medicine as needed and to follow up for color duplex scan of the Saphenous veins, the treated branch saphenous varicosities, the adjacent deep veins, and additional treatment within 7 days. PERSONNEL: Donald Corral RN Electronically authenticated by: HEMANT MCHUGH Date: 10/12/2023 13:47
== END 2023-10-12 12:32 | disposition home or self-care (01) ==
LOC: VC 12:31
PROVIDERS: PCP Radiology Diagnostic Radiology; Visit Provider Radiology Diagnostic Radiology
DX: I83.813 Varicose veins of bilateral lower extremities with pain (principal)
CPT/HCPCS: 36466

== ENCOUNTER 2023-10-17 11:05 | Outpatient (OUT) | payer OTHER, SELFPAY ==
--- NOTE | 2023-10-17 11:06 | VEIN_ITS ---
Patient Name: JONA ALLEN MR#: [id number] : 1960 Exam Date: 10/17/2023 Ordering Doctor: DR CORBIN SHEPHERD M.D. RADIOLOGY REPORT PROCEDURE: VC EXT VENOUS RT LMTD COMPARISON: VC EXT VENOUS RT LMTD, 09/25/2023. INDICATIONS: I80.01 Phlebitis of superficial veins of right lower extremity TECHNIQUE: Lower extremity lopez scale and Duplex Doppler evaluation of the deep venous system from the inguinal ligament through the calf veins. FINDINGS: REGION: Right lower extremity. THROMBI: Negative for DVT. Chemically induced thrombus in multiple varicose veins in right leg. COMPRESSIBILITY: Non-compressible segments corresponding to thrombus FLOW: Areas of no flow corresponding to thrombus OTHER: Multiple patent varicose veins remain. Largest is in proximal/posterior calf and measures 4.3 mm. CONCLUSION: Post ablation occlusion of treated varicose veins with residual incompetent varicose veins measuring to 4.3 mm Dictated by: Corbin Shepherd MD on 10/17/2023 at 11:31 Approved by: Corbin Shepherd MD on 10/17/2023 at 11:32
--- NOTE | 2023-10-17 11:06 | VEIN_ITS ---
Patient Name: JONA ALLEN MR#: [id number] : 1960 Exam Date: 10/17/2023 Ordering Doctor: DR CORBIN SHEPHERD M.D. RADIOLOGY REPORT PROCEDURE: FACILITY EST LMTD VEIN CENTER - OFFICE VISIT FOLLOW UP COMPARISON: [facility] EST LMTD, 10/10/2023. [facility] EST LMTD, 09/25/2023. PROGRESS NOTES: The patient reports no significant problems following micro foam chemical ablation of right leg incompetent varicose veins. The patient did wear her compression stocking. The patient did not require oral analgesics. Physical exam demonstrates scattered thrombosed and patent varicose veins. Some minimal hemosiderin staining. Permanent staining with sun exposure was explained to the patient common I recommended either covering up or sun screen to minimize a permanent stain. No erythema or warmth to suggest cellulitis or thrombophlebitis. No active ulceration. Review of the ultrasound performed the same day demonstrates occlusive thrombus extending throughout the treated right leg varicose veins. Residual incompetent varicose veins measuring up to 4.3 mm are observed. The patient expressed a desire to proceed with treatment of incompetent left leg varicose veins. VEIN/[facility] EST LMTD IMPRESSION: 1. Successful ablation of treated right leg varicose veins 2. Persistent bilateral incompetent varicose veins. PLAN: Micro foam chemical ablation left leg incompetent varicose veins Nurse notes, history and physical were reviewed and confirmed, see attached forms. The nurse was present throughout the physical exam and consultation Dictated by: Corbin Shepherd MD on 10/17/2023 at 11:32 Approved by: Corbin Shepherd MD on 10/17/2023 at 12:00
--- OUTSIDE RECORDS SUMMARY | 2023-10-17 11:25 | XMS_ITS | CCD ---
Author Organization [facility] Care Team Providers Care Inspector Watch Assembly Name Role Phone ZEUS LAMAS Unavailable Unavailable ZEUS LAMAS Unavailable Unavailable ZEUS LAMAS Unavailable Unavailable DO Zeus Lamas Primary Care Provider DO Zeus Lamas Attending Provider [phone] DO Zeus Lamas Referring Provider [phone] MD Rosa Romo Attending Provider DO Zeus Lamas Primary Care Provider DO Zeus Lamas Referring Provider [phone] MD Rosa Romo Attending Provider DO Zeus Lamas Primary Care Provider DO Mckenzie Perkins Attending Provider [phone] DO Zeus Lamas Primary Care Provider [phone] DO Zeus Lamas Attending Provider DO Zeus Lamas Referring Provider [phone] MD Rosa Romo Attending Provider [phone] DO Zeus Lamas Referring Provider [phone] MD Rosa Romo Attending Provider [phone] MCKENZIE PERKINS Attending Unavailable DO Zeus [...] (Bld) [#/Vol] 0.1 10*3/uL Normal 0.0-0.2 [facility] Comment on above: Result Comment: PERF ORMED BY: [place] [address] PATHOLOGIST NIGHT CUSTODIAN MIGUEL LARSEN M.D. Performed By: #### C BC, CMP #### [address] Basophils/100 WBC (Bld) 1.0 % Normal . [facility] Comment on above: Performed By: #### C BC, CMP #### [address] Eosinophils (Bld) [#/Vol] 0.3 10*3/uL Normal 0.0-0.45 [facility] Comment on above: Performed By: #### C BC, CMP #### [place] [address] Eosinophils/100 WBC (Bld) 4.8 % Normal . [facility] Comment on above: Performed By: #### C BC, CMP #### [address] Erythrocyte distribution width (RBC) [Ratio] 16.0 % High 11.9-15.3 [facility] Comment on above: Performed By: #### C BC, CMP #### [address] Hematocrit (Bld) [Volume fraction] 42.6 % Normal 34.0-46.4 [facility] Comment on above: Performed By: #### C BC, CMP #### [address] Hemoglobin (Bld) [Mass/Vol] 13.8 g/dL Normal 11.8-15.4 [facility] Comment on above: Performed By: #### C BC, CMP #### [address] Lymphocytes (Bld) [#/Vol] 2.3 10*3/uL Normal 1.00-4.8 [facility] Comment on above: Performed By: #### C BC, CMP #### [address] Lymphocytes/100 WBC (Bld) 32.7 % Normal . [facility] Comment on above: Performed By: #### C BC, CMP #### [address] MCH (RBC) [Entitic mass] 28.9 pg Normal 24.7-34.3 [facility] Comment on above: Performed By: #### C BC, CMP #### [address] MCV (RBC) [Entitic vol] 89.0 fL Normal 80-100 [facility] Comment on above: Performed By: #### C BC, CMP #### [address] Mean Corpuscular HGB Conc 32.5 g/dL Normal 32.0-35.0 [facility] Comment on above: Performed By: #### C BC, CMP #### [address] Monocytes (Bld) [#/Vol] 0.5 10*3/uL Normal 0.0-0.8 [facility] Comment on above: Performed By: #### C BC, CMP #### [address] Monocytes/100 WBC (Bld) 7.2 % Normal . [facility] Comment on above: Performed By: #### C BC, CMP #### [address] Neutrophils (Bld) [#/Vol] 3.9 10*3/uL Normal 1.8-7.7 [facility] Comment on above: Performed By: #### C BC, CMP #### [address] Neutrophils/100 WBC (Bld) 54.3 % Normal . [facility] Comment on above: Performed By: #### C BC, CMP #### [address] NRBC% 0.0 /100{WBC} Normal 0-0.5 [facility] Comment on above: Performed By: #### C BC, CMP #### [address] Platelet mean volume (Bld) [Entitic vol] 8.2 fL Normal 6.3-10.7 [facility] Comment on above: Performed By: #### C BC, CMP #### [address] Platelets (Bld) [#/Vol] 599 10*3/uL High 150-450 [facility] Comment on above: Performed By: #### C BC, CMP #### [address] RBC (Bld) [#/Vol] 4.78 10*6/uL Normal 3.60-5.00 [facility] Comment on above: Performed By: #### C BC, CMP #### [address] WBC (Bld) [#/Vol] 7.1 10*3/uL Normal 3.8-11.6 [facility] Comment on above: Performed By: #### C BC, CMP #### [address] Comprehensive Metabolic Pane [place] 09-12-2023 Albumin [Mass/Vol] 4.8 g/dL Normal 3.5-5.7 [facility] Comment on above: Performed By: #### C BC, CMP #### [address] Albumin/Globulin [Mass ratio] 2.2 {ratio} Normal [facility] Comment on above: Performed By: #### C BC, CMP #### [address] ALP [Catalytic activity/Vol] 56 U/L Normal 34-104 [facility] Comment on above: Performed By: #### C BC, CMP #### [address] ALT [Catalytic activity/Vol] 15 U/L Normal 7-52 [facility] Comment on above: Performed By: #### C BC, CMP #### [address] Anion gap [Moles/Vol] 9.3 mmol/L Normal 6.0-15.0 [facility] Comment on above: Performed By: #### C BC, CMP #### [address] AST [Catalytic activity/Vol] 21 U/L Normal 13-39 [facility] Comment on above: Performed By: #### C BC, CMP #### [address] Bilirubin [Mass/Vol] 1.2 mg/dL High 0.3-1.0 [facility] Comment on above: Performed By: #### C BC, CMP #### [address] Calcium [Mass/Vol] 10.3 mg/dL Normal 8.6-10.3 [facility] Comment on above: Performed By: #### C BC, CMP #### [address] Chloride [Moles/Vol] 103 mmol/L Normal 98-107 [facility] Comment on above: Performed By: #### C BC, CMP #### [address] CO2 [Moles/Vol] 32.3 mmol/L High 21.0-31.0 [facility] Comment on above: Performed By: #### C BC, CMP #### [address] Creatinine [Mass/Vol] 0.82 mg/dL Normal 0.60-1.20 [facility] Comment on above: Performed By: #### C BC, CMP #### [address] Creatinine Clr Calc Pharmacy 70.84 Normal [facility] Comment on above: Result Comment: PERF ORMED BY: [place] [address] PATHOLOGIST NIGHT CUSTODIAN MIGUEL LARSEN M.D. Performed By: #### C BC, CMP #### [address] GFR/1.73 sq M.predicted MDRD (S/P/Bld) [Vol rate/Area] mL/min/{1.73_m2} Normal [facility] Comment on above: Performed By: #### C BC, CMP #### [address] Globulin (S) [Mass/Vol] 2.2 g/dL Normal [facility] Comment on above: Performed By: #### C BC, CMP #### [address] [place] [address] [place] Glucose [Mass/Vol] 77 mg/dL Normal 70-100 [facility] Comment on above: Result Comment: [facility] Glucose Reference Range is dependent on time and content of last meal. Glucose of more than 200 mg/dL in a nonstressed, ambulatory subject supports the diagnosis of Diabetes Mellitus. ADA recommended reference range Performed By: #### C BC, CMP #### [facility] [address] Potassium [Moles/Vol] 4.6 mmol/L Normal 3.5-5.1 [facility] Comment on above: Performed By: #### C BC, CMP #### [facility] [address] Protein [Mass/Vol] 7.0 g/dL Normal 6.4-8.9 [facility] Comment on above: Performed By: #### C BC, CMP #### [address] Sodium [Moles/Vol] 140 mmol/L Normal 136-145 [facility] Comment on above: Performed By: #### C BC, CMP #### [address] Urea nitrogen [Mass/Vol] 18 mg/dL Normal 7-25 [facility] Comment on above: Performed By: #### C BC, CMP #### [address] MM screening mammo BI w/CADo n 09-11-2023 MM screening mammo BI w/CAD [facility] [place] [address] [place] [address] Mammography Report Signed Patient: Gloria Allen MR#: [id number] : 1960 Acct:[id number] Age/Sex: 63 / F ADM Date: 09/11/23 Loc: [place] Room: Type: [facility] Attending Dr: Mckenzie Perkins DO Copies to: Zeus Lamas,DO Mckenzie Perkins DO Ordering Provider: Mckenzie Perkins DO Date [...] Diana Matos M.D.09/11/2023 1:30 PM Dictation Location: [facility] Transcribed By: CHRISTOFER 09/11/23 1330 Dictated By: Diana Matos MD 09/11/23 1327 Signed By: 09/11/23 1330 Normal [facility] Alanine aminotransferase [En zymatic activity/volume] in Serum or PlasmaOrdered By: Rosa Romo on 03-19-2023 ALT [Catalytic activity/Vol] 13 U/L 7-52 [facility] Albumin [Mass/volume] in Ser um or Plasma by Bromocresol green (BCG) dye binding methoOrdered By: Rosa Romo on 03-19-2023 Albumin BCG dye [Mass/Vol] 4.5 g/dL 3.5-5.7 [facility] Alkaline phosphatase [Enzyma tic activity/volume] in Serum or PlasmaOrdered By: Rosa Romo on 03-19-2023 ALP [Catalytic activity/Vol] 56 U/L 34-104 [facility] Aspartate aminotransferase [ Enzymatic activity/volume] in Serum or PlasmaOrdered By: Rosa Romo on 03-19-2023 AST [Catalytic activity/Vol] 19 U/L 13-39 [facility] Basophils Auto (Bld) [#/Vol] Ordered By: Rosa Romo on 03-19-2023 Basophils (Bld) [#/Vol] 0.1 10*3/uL 0.0-0.2 [facility] Basophils/100 WBC Auto (Bld) Ordered By: Rosa Romo on 03-19-2023 Basophils/100 WBC (Bld) 0.9 % . [facility] Bilirubin.total [Mass/volume ] in Serum or PlasmaOrdered By: Rosa Romo on 03-19-2023 Bilirubin [Mass/Vol] 1.4 mg/dL 0.3-1.0 [facility] Comment on above: Samples from patient s who have taken Naproxen have shown spurious elevation in Total Bilirubin levels. A metabolite of Naproxen, O-desmethylnaproxen, has been shown to interfere with the Pop-Adeel method for measuring Total Bilirubin. Calcium [Mass/volume] in Ser um or PlasmaOrdered By: Rosa Romo on 03-19-2023 Calcium [Mass/Vol] 9.7 mg/dL 8.6-10.3 [facility] Carbon dioxide, total [Moles /volume] in Serum or PlasmaOrdered By: Rosa Romo on 03-19-2023 CO2 [Moles/Vol] 31.9 mmol/L 21.0-31.0 [facility] Chloride [Moles/volume] in S anne or PlasmaOrdered By: Rosa Romo on 03-19-2023 Chloride [Moles/Vol] 104 mmol/L 98-107 [facility] Cholesterol [Mass/volume] in Serum or PlasmaOrdered By: Zeus Lamas on 03-19-2023 Cholesterol [Mass/Vol] 179 mg/dL 140-200 [facility] Comment on above: Chol less than 200 m g/dl low riskChol 201-239 mg/dl borderline riskChol 240 mg/dl and greater high risk Cholesterol in LDL Calc [Mas s/Vol]Ordered By: Zeus Lamas on 03-19-2023 Cholesterol in LDL [Mass/Vol] 123 mg/dL 0-100 [facility] Comment on above: LDL ATP III CLASSIFI CATIONLDL less than 100 mg/dL OptimalLDL 100-129 mg/dL Near or above optimalLDL 130-159 mg/dL Borderline highLDL 160-189 mg/dL HighLDL greater than 189 mg/dL Very high Cholesterol in VLDL Calc [Ma ss/Vol]Ordered By: Zeus Lamas on 03-19-2023 Cholesterol in VLDL [Mass/Vol] 12 mg/dL [facility] Comprehensive Metabolic Pane douglas 03-19-2023 Albumin [Mass/Vol] 4.5 g/dL Normal 3.5-5.7 [facility] Comment on above: Order Comment: PT FA STED 12 HOURS Performed By: #### S CAN CBC, CMP #### [facility] [address] Albumin/Globulin [Mass ratio] 2.0 {ratio} Normal [facility] Comment on above: Order Comment: PT FA STED 12 HOURS Performed By: #### S CAN CBC, CMP #### [address] ALP [Catalytic activity/Vol] 56 U/L Normal 34-104 [facility] Comment on above: Order Comment: PT FA STED 12 HOURS Performed By: #### S CAN CBC, CMP #### [address] ALT [Catalytic activity/Vol] 13 U/L Normal 7-52 [facility] Comment on above: Order Comment: PT FA STED 12 HOURS Performed By: #### S CAN CBC, CMP #### [facility] [address] [place] [address] Anion gap [Moles/Vol] 9.3 mmol/L Normal 6.0-15.0 [facility] Comment on above: Order Comment: PT FA STED 12 HOURS Performed By: #### S CAN CBC, CMP #### [address] AST [Catalytic activity/Vol] 19 U/L Normal 13-39 [facility] Comment on above: Order Comment: PT FA STED 12 HOURS Performed By: #### S CAN CBC, CMP #### [address] Bilirubin [Mass/Vol] 1.4 mg/dL High 0.3-1.0 [facility] Comment on above: Order Comment: PT FA STED 12 HOURS Result Comment: Samp les from patients who have taken Naproxen have shown spurious elevation in Total Bilirubin levels. A metabolite of Naproxen, O-desmethylnaproxen, has been shown to interfere with the Jendrassik-Grof method for measuring Total Bilirubin. Performed By: #### S CAN CBC, CMP #### [address] Calcium [Mass/Vol] 9.7 mg/dL Normal 8.6-10.3 [facility] Comment on above: Order Comment: PT FA STED 12 HOURS Performed By: #### S CAN CBC, CMP #### [address] Chloride [Moles/Vol] 104 mmol/L Normal 98-107 [facility] Comment on above: Order Comment: PT FA STED 12 HOURS Performed By: #### S CAN CBC, CMP #### [place] [address] [place] CO2 [Moles/Vol] 31.9 mmol/L High 21.0-31.0 [facility] Comment on above: Order Comment: PT FA STED 12 HOURS Performed By: #### S CAN CBC, CMP #### [place] [address] [place] Creatinine [Mass/Vol] 0.77 mg/dL Normal 0.60-1.20 [facility] Comment on above: Order Comment: PT FA STED 12 HOURS Performed By: #### S CAN CBC, CMP #### [place] [address] [place] Creatinine Clr Calc Pharmacy 76.42 Normal [facility] Comment on above: Order Comment: PT FA STED 12 HOURS Result Comment: PERF ORMED BY: [place] [address] PATHOLOGIST NIGHT CUSTODIAN MIGUEL LARSEN M.D. Performed By: #### S CAN CBC, CMP #### [facility] [address] [place] [address] [place] GFR/1.73 sq M.predicted MDRD (S/P/Bld) [Vol rate/Area] mL/min/{1.73_m2} Normal [facility] Comment on above: Order Comment: PT FA STED 12 HOURS Performed By: #### S CAN CBC, CMP #### [facility] [address] [place] [address] [place] Globulin (S) [Mass/Vol] 2.2 g/dL Normal [facility] Comment on above: Order Comment: PT FA STED 12 HOURS Performed By: #### S CAN CBC, CMP #### [address] Glucose [Mass/Vol] 79 mg/dL Normal 70-100 [facility] Comment on above: Order Comment: PT FA STED 12 HOURS Result Comment: [place] Glucose Reference Range is dependent on time and content of last meal. Glucose of more than 200 mg/dL in a nonstressed, ambulatory subject supports the diagnosis of Diabetes Mellitus. ADA recommended reference range Performed By: #### S CAN CBC, CMP #### [place] [address] [place] Potassium [Moles/Vol] 4.2 mmol/L Normal 3.5-5.1 [facility] Comment on above: Order Comment: PT FA STED 12 HOURS Performed By: #### S CAN CBC, CMP #### [place] [address] [place] Protein [Mass/Vol] 6.7 g/dL Normal 6.4-8.9 [facility] Comment on above: Order Comment: PT FA STED 12 HOURS Performed By: #### S CAN CBC, CMP #### [place] [address] [place] Sodium [Moles/Vol] 141 mmol/L Normal 136-145 [facility] Comment on above: Order Comment: PT FA STED 12 HOURS Performed By: #### S CAN CBC, CMP #### [place] [address] [place] Urea nitrogen [Mass/Vol] 13 mg/dL Normal 7-25 [facility] Comment on above: Order Comment: PT FA STED 12 HOURS Performed By: #### S CAN CBC, CMP #### [facility] [address] Creatinine [Mass/volume] in Serum or PlasmaOrdered By: Rosa Romo on 03-19-2023 Creatinine [Mass/Vol] 0.77 mg/dL 0.60-1.20 [facility] Eosinophils Auto (Bld) [#/Vo l]Ordered By: Rosa Romo on 03-19-2023 Eosinophils (Bld) [#/Vol] 0.3 10*3/uL 0.0-0.45 [facility] Eosinophils/100 WBC Auto (Bl d)Ordered By: Rosa Romo on 03-19-2023 Eosinophils/100 WBC (Bld) 4.9 % . [facility] Erythrocyte distribution wid th Auto (RBC) [Ratio]Ordered By: Rosa Romo on 03-19-2023 Erythrocyte distribution width (RBC) [Ratio] 15.4 % 11.9-15.3 [facility] Globulin Calc (S) [Mass/Vol] Ordered By: Rosa Romo on 03-19-2023 Globulin (S) [Mass/Vol] 2.2 g/dL [facility] Glucose [Mass/volume] in Ser um or PlasmaOrdered By: Rosa Romo on 03-19-2023 Glucose [Mass/Vol] 79 mg/dL 70-100 [facility] Comment on above: ADA recommended refe rence rangeRandom Glucose Reference Range is dependent on time and content of last meal. Glucose of more than 200 mg/dL in a nonstressed, ambulatory subject supports the diagnosis of Diabetes Mellitus. Hematocrit Auto (Bld) [Volum e fraction]Ordered By: Rosa Romo on 03-19-2023 Hematocrit (Bld) [Volume fraction] 41.5 % 34.0-46.4 [facility] Hemoglobin [Mass/volume] in BloodOrdered By: Rosa Romo on 03-19-2023 Hemoglobin (Bld) [Mass/Vol] 13.7 g/dL 11.8-15.4 [facility] Leukocytes [#/volume] correc prema for nucleated erythrocytes in Blood by Automated counOrdered By: Rosa Romo on 03-19-2023 WBC corrected for nucl RBC Auto (Bld) [#/Vol] 6.5 10*3/uL 3.8-11.6 [facility] Lipid Panelon 03-19-2023 Cholesterol [Mass/Vol] 179 mg/dL Normal 140-200 [facility] Comment on above: Order Comment: PT FA STED 12 HOURS Result Comment: Chol less than 200 mg/dl low risk Chol 201-239 mg/dl borderline risk Chol 240 mg/dl and greater high risk Performed By: #### L IPID #### [facility] [address] [place] [id number] [place] Cholesterol in HDL [Mass/Vol] 44 mg/dL Normal 23-92 [facility] Comment on above: Order Comment: PT FA STED 12 HOURS Result Comment: HDL CHOL ATP-III CLASSIFICATION Cardiovascular Risk HDL > or equal to 60 mg/dL LOW HDL < 40 mg/dL HIGH Performed By: #### L IPID #### [facility] [address] [place] [address] [place] Cholesterol.total/Chol esterol in HDL [Mass ratio] 4.1 {ratio} Normal <5.0 [facility] Comment on above: Order Comment: PT FA STED 12 HOURS Result Comment: PERF ORMED BY: [place] [address] PATHOLOGIST NIGHT CUSTODIAN MIGUEL LARSEN M.D. Performed By: #### L IPID #### [facility] [address] [place] [id number] [place] LDL Cholesterol,Calculated 123 mg/dL High 0-100 [facility] Comment on above: Order Comment: PT FA STED 12 HOURS Result Comment: LDL ATP III CLASSIFICATION LDL less than 100 mg/dL Optimal LDL 100-129 mg/dL Near or above optimal LDL 130-159 mg/dL Borderline high LDL 160-189 mg/dL High LDL greater than 189 mg/dL Very high Performed By: #### L IPID #### [facility] [address] [place] [address] [place] Triglyceride w/Reflex 62 mg/dL Normal 0-149 [facility] Comment on above: Order Comment: PT FA STED 12 HOURS Result Comment: TRIG ATP III CLASSIFICATION TRIG less than 150 mg/dL Normal TRIG 150-199 mg/dL Borderline high TRIG 200-500 mg/dL High TRIG greater than 500 mg/dL Very high Standard traceable to the Center for Disease Conrtrol and Prevention (CDC) test method. Performed By: #### L IPID #### [facility] [address] VLDL CHOLESTEROL 12 mg/dL Normal [facility] Comment on above: Order Comment: PT FA STED 12 HOURS Performed By: #### L IPID #### [facility] [address] Lymphocytes Auto (Bld) [#/Vo l]Ordered By: Rosa Romo on 03-19-2023 Lymphocytes (Bld) [#/Vol] 2.1 10*3/uL 1.00-4.8 [facility] Lymphocytes/100 WBC Auto (Bl d)Ordered By: Rosa Romo on 03-19-2023 Lymphocytes/100 WBC (Bld) 32.8 % . [facility] MCH Auto (RBC) [Entitic mass ]Ordered By: Rosa Romo on 03-19-2023 MCH (RBC) [Entitic mass] 28.8 pg 24.7-34.3 [facility] MCHC Auto (RBC) [Mass/Vol]Or dered By: Rosa Romo on 03-19-2023 MCHC (RBC) [Mass/Vol] 33.1 g/dL 32.0-35.0 [facility] MCV Auto (RBC) [Entitic vol] Ordered By: Rosa Romo on 03-19-2023 MCV (RBC) [Entitic vol] 87.1 fL 80-100 [facility] Monocytes Auto (Bld) [#/Vol] Ordered By: Rosa Romo on 03-19-2023 Monocytes (Bld) [#/Vol] 0.5 10*3/uL 0.0-0.8 [facility] Monocytes/100 WBC Auto (Bld) Ordered By: Rosa Romo on 03-19-2023 Monocytes/100 WBC (Bld) 7.3 % . [facility] Neutrophils Auto (Bld) [#/Vo l]Ordered By: Rosa Romo on 03-19-2023 Neutrophils (Bld) [#/Vol] 3.5 10*3/uL 1.8-7.7 [facility] Neutrophils/100 WBC Auto (Bl d)Ordered By: Rosa Romo on 03-19-2023 Neutrophils/100 WBC (Bld) 54.1 % . [facility] No Panel InformationOrdered By: Rosa Romo on 03-19-2023 Estimated GFR (CKD-EPI) > 60.0 mL/Min [facility] Creatinine Clearance (Chem 76.42 [facility] Nucleated erythrocytes [Pres ence] in Blood by Automated countOrdered By: Rosa Romo on 03-19-2023 Nucleated RBC Auto Ql (Bld) 0.0 /100{WBC} 0-0.5 [facility] Platelet adequacy [Presence] in Blood by Light microscopyOrdered By: Rosa Romo on 03-19-2023 Platelets LM Ql (Bld) Increased Normal [facility] Platelet mean volume Auto (B ld) [Entitic vol]Ordered By: Rosa Romo on 03-19-2023 Platelet mean volume (Bld) [Entitic vol] 8.5 fL 6.3-10.7 [facility] Platelet morphology finding [Identifier] in BloodOrdered By: Rosa Romo on 03-19-2023 Platelet morphology finding Nom (Bld) Normal Normal [facility] Platelets Auto (Bld) [#/Vol] Ordered By: Rosa Romo on 03-19-2023 Platelets (Bld) [#/Vol] 537 10*3/uL 150-450 [facility] Potassium [Moles/volume] in Serum or PlasmaOrdered By: Rosa Romo on 03-19-2023 Potassium [Moles/Vol] 4.2 mmol/L 3.5-5.1 [facility] Protein [Mass/volume] in Ser um or PlasmaOrdered By: Rosa Romo on 03-19-2023 Protein [Mass/Vol] 6.7 g/dL 6.4-8.9 [facility] RBC Auto (Bld) [#/Vol]Ordere d By: Rosa Romo on 03-19-2023 RBC (Bld) [#/Vol] 4.76 10*6/uL 3.60-5.00 [facility] RBC morphologyOrdered By: Rosie Romo on 03-19-2023 RBC morphology finding Nom (Bld) Normal Normal [facility] Scan and CBCon 03-19-2023 Basophils (Bld) [#/Vol] 0.1 10*3/uL Normal 0.0-0.2 [facility] Comment on above: Performed By: #### S CAN CBC, CMP #### [facility] [address] [place] [address] [place] Basophils/100 WBC (Bld) 0.9 % Normal . [facility] Comment on above: Performed By: #### S CAN CBC, CMP #### [facility] [address] [place] [address] [place] Eosinophils (Bld) [#/Vol] 0.3 10*3/uL Normal 0.0-0.45 [facility] Comment on above: Performed By: #### S CAN CBC, CMP #### [facility] [address] [place] [id number] [place] Eosinophils/100 WBC (Bld) 4.9 % Normal . [facility] Comment on above: Performed By: #### S CAN CBC, CMP #### [facility] [address] Erythrocyte distribution width (RBC) [Ratio] 15.4 % High 11.9-15.3 [facility] Comment on above: Performed By: #### S CAN CBC, CMP #### [facility] [address] [id number] [place] Hematocrit (Bld) [Volume fraction] 41.5 % Normal 34.0-46.4 [facility] Comment on above: Performed By: #### S CAN CBC, CMP #### [facility] [address] [place] [address] [place] Hemoglobin (Bld) [Mass/Vol] 13.7 g/dL Normal 11.8-15.4 [facility] Comment on above: Performed By: #### S CAN CBC, CMP #### [facility] [address] Lymphocytes (Bld) [#/Vol] 2.1 10*3/uL Normal 1.00-4.8 [facility] Comment on above: Performed By: #### S CAN CBC, CMP #### [address] Lymphocytes/100 WBC (Bld) 32.8 % Normal . [facility] Comment on above: Performed By: #### S CAN CBC, CMP #### [address] MCH (RBC) [Entitic mass] 28.8 pg Normal 24.7-34.3 [facility] Comment on above: Performed By: #### S CAN CBC, CMP #### [address] MCV (RBC) [Entitic vol] 87.1 fL Normal 80-100 [facility] Comment on above: Performed By: #### S CAN CBC, CMP #### [address] Mean Corpuscular HGB Conc 33.1 g/dL Normal 32.0-35.0 [facility] Comment on above: Performed By: #### S CAN CBC, CMP #### [address] Monocytes (Bld) [#/Vol] 0.5 10*3/uL Normal 0.0-0.8 [facility] Comment on above: Performed By: #### S CAN CBC, CMP #### [place] [address] [place] Monocytes/100 WBC (Bld) 7.3 % Normal . [facility] Comment on above: Performed By: #### S CAN CBC, CMP #### [address] Neutrophils (Bld) [#/Vol] 3.5 10*3/uL Normal 1.8-7.7 [facility] Comment on above: Performed By: #### S CAN CBC, CMP #### [address] Neutrophils/100 WBC (Bld) 54.1 % Normal . [facility] Comment on above: Performed By: #### S CAN CBC, CMP #### [address] NRBC% 0.0 /100{WBC} Normal 0-0.5 [facility] Comment on above: Performed By: #### S CAN CBC, CMP #### [address] Platelet Estimate Increased Normal Normal [facility] Comment on above: Performed By: #### S CAN CBC, CMP #### [address] Platelet mean volume (Bld) [Entitic vol] 8.5 fL Normal 6.3-10.7 [facility] Comment on above: Performed By: #### S CAN CBC, CMP #### [address] Platelet Morphology Normal Normal Normal [facility] Comment on above: Result Comment: PERF ORMED BY: [place] [address] PATHOLOGIST NIGHT CUSTODIAN MIGUEL LARSEN M.D. Performed By: #### S CAN CBC, CMP #### [address] Platelets (Bld) [#/Vol] 537 10*3/uL High 150-450 [facility] Comment on above: Performed By: #### S CAN CBC, CMP #### [address] RBC (Bld) [#/Vol] 4.76 10*6/uL Normal 3.60-5.00 [facility] Comment on above: Performed By: #### S CAN CBC, CMP #### [address] RBC morphology finding Nom (Bld) Normal Normal Normal [facility] Comment on above: Performed By: #### S CAN CBC, CMP #### [facility] [address] WBC (Bld) [#/Vol] 6.5 10*3/uL Normal 3.8-11.6 [facility] Comment on above: Performed By: #### S CAN CBC, CMP #### [facility] [address] Serum or plasma albumin/glob ulin mass ratioOrdered By: Rosa Romo on 03-19-2023 Albumin/Globulin [Mass ratio] 2.0 {ratio} [facility] Serum or plasma anion gap de terminationOrdered By: Rosa Romo on 03-19-2023 Anion gap [Moles/Vol] 9.3 mmol/L 6.0-15.0 [facility] Serum or plasma high density lipoprotein (HDL) cholesterol measurementOrdered By: Zeus Lamas on 03-19-2023 Cholesterol in HDL [Mass/Vol] 44 mg/dL [facility] Comment on above: HDL CHOL ATP-III CLA SSIFICATION Cardiovascular RiskHDL > or equal to 60 mg/dL LOWHDL < 40 mg/dL HIGH Serum or plasma total choles terol/high density lipoprotein (HDL) cholesterol mass ratOrdered By: Zeus Lamas on 03-19-2023 Cholesterol.total/Chol esterol in HDL [Mass ratio] 4.1 {ratio} <5.0 [facility] Sodium [Moles/volume] in Ser um or PlasmaOrdered By: Rosa Romo on 03-19-2023 Sodium [Moles/Vol] 141 mmol/L 136-145 [facility] Triglyceride [Mass/volume] i n Serum or PlasmaOrdered By: Zeus Lamas on 03-19-2023 Triglyceride [Mass/Vol] 62 mg/dL 0-149 [facility] Comment on above: TRIG ATP III CLASSIF ICATIONTRIG less than 150 mg/dL NormalTRIG 150-199 mg/dL Borderline highTRIG 200-500 mg/dL High TRIG greater than 500 mg/dL Very highStandard traceable to the Center for Disease Conrtrol and Prevention (CDC) test method. Urea nitrogen [Mass/volume] in Serum or PlasmaOrdered By: Rosa Romo on 03-19-2023 Urea nitrogen [Mass/Vol] 13 mg/dL 7 [facility] WBC Auto (Bld) [#/Vol]Ordere d By: Rosa Romo on 03-19-2023 WBC (Bld) [#/Vol] 6.5 10*3/uL 3.8-11.6 [facility] Complete Blood Count Auto Di ffon 09-22-2022 Basophils (Bld) [#/Vol] 0.1 10*3/uL Normal 0.0-0.2 [facility] Comment on above: Result Comment: PERF ORMED BY: [place] [address] PATHOLOGIST NIGHT CUSTODIAN MIGUEL LARSEN M.D. Performed By: #### C BC #### [address] Basophils/100 WBC (Bld) 0.7 % Normal . [facility] Comment on above: Performed By: #### C BC #### [address] Eosinophils (Bld) [#/Vol] 0.3 10*3/uL Normal 0.0-0.45 [facility] Comment on above: Performed By: #### C BC #### [address] Eosinophils/100 WBC (Bld) 4.4 % Normal . [facility] Comment on above: Performed By: #### C BC #### [address] Erythrocyte distribution width (RBC) [Ratio] 14.7 % Normal 11.9-15.3 [facility] Comment on above: Performed By: #### C BC #### [address] Hematocrit (Bld) [Volume fraction] 42.0 % Normal 34.0-46.4 [facility] Comment on above: Performed By: #### C BC #### [address] Hemoglobin (Bld) [Mass/Vol] 13.7 g/dL Normal 11.8-15.4 [facility] Comment on above: Performed By: #### C BC #### [address] Lymphocytes (Bld) [#/Vol] 1.8 10*3/uL Normal 1.00-4.8 [facility] Comment on above: Performed By: #### C BC #### [address] Lymphocytes/100 WBC (Bld) 22.7 % Normal . [facility] Comment on above: Performed By: #### C BC #### [address] MCH (RBC) [Entitic mass] 28.8 pg Normal 24.7-34.3 [facility] Comment on above: Performed By: #### C BC #### [address] MCV (RBC) [Entitic vol] 88.4 fL Normal 80-100 [facility] Comment on above: Performed By: #### C BC #### [address] Mean Corpuscular HGB Conc 32.6 g/dL Normal 32.0-35.0 [facility] Comment on above: Performed By: #### C BC #### [address] Monocytes (Bld) [#/Vol] 0.5 10*3/uL Normal 0.0-0.8 [facility] Comment on above: Performed By: #### C BC #### [address] Monocytes/100 WBC (Bld) 6.5 % Normal . [facility] Comment on above: Performed By: #### C BC #### [address] Neutrophils (Bld) [#/Vol] 5.1 10*3/uL Normal 1.8-7.7 [facility] Comment on above: Performed By: #### C BC #### [facility] [address] Neutrophils/100 WBC (Bld) 65.7 % Normal . [facility] Comment on above: Performed By: #### C BC #### [facility] [address] NRBC% 0.1 /100{WBC} Normal 0-0.5 [facility] Comment on above: Performed By: #### C BC #### [address] Platelet mean volume (Bld) [Entitic vol] 8.5 fL Normal 6.3-10.7 [facility] Comment on above: Performed By: #### C BC #### [address] Platelets (Bld) [#/Vol] 551 10*3/uL High 150-450 [facility] Comment on above: Performed By: #### C BC #### [address] RBC (Bld) [#/Vol] 4.75 10*6/uL Normal 3.60-5.00 [facility] Comment on above: Performed By: #### C BC #### [address] WBC (Bld) [#/Vol] 7.7 10*3/uL Normal 3.8-11.6 [facility] Comment on above: Performed By: #### C BC #### [place] [address] [place] Basophils Auto (Bld) [#/Vol] Ordered By: Rosa Romo on 03-22-2022 Basophils (Bld) [#/Vol] 0.1 10*3/uL 0.0-0.2 [facility] Basophils/100 WBC Auto (Bld) Ordered By: Rosa Romo on 03-22-2022 Basophils/100 WBC (Bld) 0.9 % . [facility] Body fluid albumin measureme nt (mass/volume)Ordered By: Rosa Romo on 03-22-2022 Albumin (Body fld) [Mass/Vol] 4.3 g/dL 3.2-5.5 [facility] Creatinine and Glomerular fi ltration rate.predicted panel (S/P/Bld)Ordered By: Rosa Romo on 03-22-2022 Creatinine [Mass/Vol] 0.79 mg/dL 0.44-1.03 [facility] Eosinophils Auto (Bld) [#/Vo l]Ordered By: Rosa Romo on 03-22-2022 Eosinophils (Bld) [#/Vol] 0.2 10*3/uL 0.0-0.45 [facility] Eosinophils/100 WBC Auto (Bl d)Ordered By: Rosa Romo on 03-22-2022 Eosinophils/100 WBC (Bld) 2.4 % . [facility] Erythrocyte distribution wid th Auto (RBC) [Ratio]Ordered By: Rosa Romo on 03-22-2022 Erythrocyte distribution width (RBC) [Ratio] 14.7 % 11.9-15.3 [facility] Estimated glomerular filtrat ion rate (GFR) non- AmericanOrdered By: Rosa Romo on 03-22-2022 GFR/1.73 sq M.predicted among non-blacks MDRD (S/P/Bld) [Vol rate/Area] > 60 mL/Min [facility] Globulin Calc (S) [Mass/Vol] Ordered By: Rosa Romo on 03-22-2022 Globulin (S) [Mass/Vol] 2.2 g/dL [facility] Hematocrit Auto (Bld) [Volum e fraction]Ordered By: Rosa Romo on 03-22-2022 Hematocrit (Bld) [Volume fraction] 41.9 % 34.0-46.4 [facility] Hemoglobin [Mass/volume] in BloodOrdered By: Rosa Romo on 03-22-2022 Hemoglobin (Bld) [Mass/Vol] 13.6 g/dL 11.8-15.4 [facility] - Hematology and Cell countsOrdered By: Rosa Romo on 03-22-2022 Nucleated RBC/100 WBC (Bld) [Ratio] 0.0 % 0-0.5 [facility] Leukocytes [#/volume] in Blo od by Automated countOrdered By: Rosa Romo on 03-22-2022 WBC (Bld) [#/Vol] 8.0 10*3/uL 4.5-11.0 [facility] Lymphocytes Auto (Bld) [#/Vo l]Ordered By: Rosa Romo on 03-22-2022 Lymphocytes (Bld) [#/Vol] 2.0 10*3/uL 1.00-4.8 [facility] Lymphocytes/100 WBC Auto (Bl d)Ordered By: Rosa Romo on 03-22-2022 Lymphocytes/100 WBC (Bld) 24.9 % . [facility] MCH Auto (RBC) [Entitic mass ]Ordered By: Rosa Romo on 03-22-2022 MCH (RBC) [Entitic mass] 29.4 pg 24.7-34.3 [facility] MCHC Auto (RBC) [Mass/Vol]Or dered By: Rosa Romo on 03-22-2022 MCHC (RBC) [Mass/Vol] 32.5 g/dL 32.0-35.0 [facility] MCV Auto (RBC) [Entitic vol] Ordered By: Rosa Romo on 03-22-2022 MCV (RBC) [Entitic vol] 90.4 fL 80-100 [facility] Monocytes Auto (Bld) [#/Vol] Ordered By: Rosa Romo on 03-22-2022 Monocytes (Bld) [#/Vol] 0.4 10*3/uL 0.0-0.8 [facility] Monocytes/100 WBC Auto (Bld) Ordered By: Rosa Romo on 03-22-2022 Monocytes/100 WBC (Bld) 5.2 % . [facility] Neutrophils Auto (Bld) [#/Vo l]Ordered By: Rosa Romo on 03-22-2022 Neutrophils (Bld) [#/Vol] 5.3 10*3/uL 1.8-7.7 [facility] Neutrophils/100 WBC Auto (Bl d)Ordered By: Rosa Romo on 03-22-2022 Neutrophils/100 WBC (Bld) 66.6 % . [facility] No Panel InformationOrdered By: Rosa Romo on 03-22-2022 Estimated GFR () > 60 mL/Min [facility] Comment on above: GFR estimated refere nce range: According to KDOQI guidelines, <60 ml/min/1.73m2 is sufficient to diagnose a patient with chronic kidney disease. Pharmacy Creatinine Clearance (Chem 75.44 [facility] Platelet mean volume Auto (B ld) [Entitic vol]Ordered By: Rosa Romo on 03-22-2022 Platelet mean volume (Bld) [Entitic vol] 8.3 fL 6.3-10.7 [facility] Platelets Auto (Bld) [#/Vol] Ordered By: Rosa Romo on 03-22-2022 Platelets (Bld) [#/Vol] 506 10*3/uL 150-450 [facility] Protein [Mass/volume] in Ser um or PlasmaOrdered By: Rosa Romo on 03-22-2022 Protein [Mass/Vol] 6.5 g/dL 6.1-7.9 [facility] RBC Auto (Bld) [#/Vol]Ordere d By: Rosa Romo on 03-22-2022 RBC (Bld) [#/Vol] 4.63 10*6/uL 3.60-5.00 [facility] Serum or plasma alanine black otransferase measurement without P-5'-P (enzymatic activiOrdered By: Rosa Romo on 03-22-2022 ALT No additional P-5'-P [Catalytic activity/Vol] 17 U/L 10-60 [facility] Serum or plasma albumin/glob ulin mass ratioOrdered By: Rosa Romo on 03-22-2022 Albumin/Globulin [Mass ratio] 2.0 {ratio} [facility] Serum or plasma alkaline laurie sphatase measurement (enzymatic activity/volume)Ordered By: Rosa Romo on 03-22-2022 ALP [Catalytic activity/Vol] 56 U/L 32-92 [facility] Serum or plasma anion gap de terminationOrdered By: Rosa Romo on 03-22-2022 Anion gap [Moles/Vol] 11.6 mmol/L 6.0-15.0 [facility] Serum or plasma aspartate am inotransferase measurement (enzymatic activity/volume)Ordered By: Rosa Romo on 03-22-2022 AST [Catalytic activity/Vol] 22 U/L 10-42 [facility] Serum or plasma calcium los urement (mass/volume)Ordered By: Rosa Romo on 03-22-2022 Calcium [Mass/Vol] 9.7 mg/dL 8.2-10.2 [facility] Serum or plasma chloride theresa surement (moles/volume)Ordered By: Rosa Romo on 03-22-2022 Chloride [Moles/Vol] 100 mmol/L 95-114 [facility] Serum or plasma glucose los urement (mass/volume)Ordered By: Rosa Romo on 03-22-2022 Glucose [Mass/Vol] 123 mg/dL 70-100 [facility] Comment on above: ADA recommended refe rence rangeRandom Glucose Reference Range is dependent on time and content of last meal. Glucose of more than 200 mg/dL in a nonstressed, ambulatory subject supports the diagnosis of Diabetes Mellitus. Serum or plasma potassium me asurement (moles/volume)Ordered By: Rosa Romo on 03-22-2022 Potassium [Moles/Vol] 4.4 mmol/L 3.5-5.1 [facility] Serum or plasma sodium measu rement (moles/volume)Ordered By: Rosa Romo on 03-22-2022 Sodium [Moles/Vol] 137 mmol/L 136-146 [facility] Serum or plasma total biliru bin measurement (mass/volume)Ordered By: Rosa Romo on 03-22-2022 Bilirubin [Mass/Vol] 1.8 mg/dL 0.3-1.2 [facility] Comment on above: Samples from patient s who have taken Naproxen have shown spurious elevation in Total Bilirubin levels. A metabolite of Naproxen, O-desmethylnaproxen, has been shown to interfere with the Pop-Adeel method for measuring Total Bilirubin. Serum or plasma total carbon dioxide measurement (moles/volume)Ordered By: Rosa Romo on 03-22-2022 CO2 [Moles/Vol] 29.8 mmol/L 22.0-30.0 [facility] Serum or plasma urea nitroge n measurement (mass/volume)Ordered By: Rosa Romo on 03-22-2022 Urea nitrogen [Mass/Vol] 12 mg/dL 9- [facility] Basophils Auto (Bld) [#/Vol] Ordered By: Rosa Romo on 12-20-2021 Basophils (Bld) [#/Vol] 0.0 10*3/uL 0.0-0.2 [facility] Basophils/100 WBC Auto (Bld) Ordered By: Rosa Romo on 12-20-2021 Basophils/100 WBC (Bld) 0.7 % . [facility] Blood hemoglobin measurement (mass/volume)Ordered By: Rosa Romo on 12-20-2021 Hemoglobin (Bld) [Mass/Vol] 13.6 g/dL 11.8-15.4 [facility] Blood leukocytes automated c ount (number/volume)Ordered By: Rosa Romo on 12-20-2021 WBC (Bld) [#/Vol] 6.3 10*3/uL 4.5-11.0 [facility] Body fluid albumin measureme nt (mass/volume)Ordered By: Rosa Romo on 12-20-2021 Albumin (Body fld) [Mass/Vol] 4.7 g/dL 3.2-5.[address] [facility] [address] biopsyOrdered By: Rosa Galindo se on 12-20-2021 Transferrin [Mass/Vol] 258 mg/dL 180-380 [facility] Cholesterol [Mass/volume] in Serum or PlasmaOrdered By: Zeus Lamas on 12-20-2021 Cholesterol [Mass/Vol] 175 mg/dL 140-200 [facility] Comment on above: Chol less than 200 m g/dl low risk Chol 201-239 mg/dl borderline risk Chol 240 mg/dl and greater high risk Cholesterol in LDL Calc [Mas s/Vol]Ordered By: Zeus Lamas on 12-20-2021 Cholesterol in LDL [Mass/Vol] 119 mg/dL 0-100 [facility] Comment on above: LDL ATP III CLASSIFI CATION LDL less than 100 mg/dL Optimal LDL 100-129 mg/dL Near or above optimal LDL 130-159 mg/dL Borderline high LDL 160-189 mg/dL High LDL greater than 189 mg/dL Very high Cholesterol in VLDL Calc [Ma ss/Vol]Ordered By: Zeus Lamas on 12-20-2021 Cholesterol in VLDL [Mass/Vol] 11 mg/dL [facility] Creatinine and Glomerular fi ltration rate.predicted panel (S/P/Bld)Ordered By: Rosa Romo on 12-20-2021 Creatinine [Mass/Vol] 0.78 mg/dL 0.44-1.03 [facility] Eosinophils Auto (Bld) [#/Vo l]Ordered By: Rosa Romo on 12-20-2021 Eosinophils (Bld) [#/Vol] 0.2 10*3/uL 0.0-0.45 [facility] Eosinophils/100 WBC Auto (Bl d)Ordered By: Rosa Romo on 12-20-2021 Eosinophils/100 WBC (Bld) 2.9 % . [facility] Erythrocyte distribution wid th Auto (RBC) [Ratio]Ordered By: Rosa Romo on 12-20-2021 Erythrocyte distribution width (RBC) [Ratio] 15.6 % 11.9-15.3 [facility] Estimated glomerular filtrat ion rate (GFR) non- AmericanOrdered By: Rosa Romo on 12-20-2021 GFR/1.73 sq M.predicted among non-blacks MDRD (S/P/Bld) [Vol rate/Area] > 60 mL/Min [facility] Ferritin [Mass/volume] in Se rum or PlasmaOrdered By: Rosa Romo on 12-20-2021 Ferritin [Mass/Vol] 278.9 ng/mL 11-306.8 [facility] Globulin Calc (S) [Mass/Vol] Ordered By: Rosa Romo on 12-20-2021 Globulin (S) [Mass/Vol] 2.2 g/dL [facility] Hematocrit Auto (Bld) [Volum e fraction]Ordered By: Rosa Romo on 12-20-2021 Hematocrit (Bld) [Volume fraction] 41.2 % 34.0-46.4 [facility] Iron [Mass/volume] in Serum or PlasmaOrdered By: Rosa Romo on 12-20-2021 Iron [Mass/Vol] 90 ug/dL 40-150 [facility] Iron binding capacity [Mass/ volume] in Serum or PlasmaOrdered By: Rosa Romo on 12-20-2021 Iron binding capacity [Mass/Vol] 361 ug/dL 255-450 [facility] Iron saturation [Mass Fracti on] in Serum or PlasmaOrdered By: Rosa Romo on 12-20-2021 Iron saturation [Mass fraction] 24.0 % 20-50 [facility] - Hematology and Cell countsOrdered By: Rosa Romo on 12-20-2021 Nucleated RBC/100 WBC (Bld) [Ratio] 0.0 % 0-0.5 [facility] Lymphocytes Auto (Bld) [#/Vo l]Ordered By: Rosa Romo on 12-20-2021 Lymphocytes (Bld) [#/Vol] 1.7 10*3/uL 1.00-4.8 [facility] Lymphocytes/100 WBC Auto (Bl d)Ordered By: Rosa Romo on 12-20-2021 Lymphocytes/100 WBC (Bld) 26.9 % . [facility] MCH Auto (RBC) [Entitic mass ]Ordered By: Rosa Romo on 12-20-2021 MCH (RBC) [Entitic mass] 29.8 pg 24.7-34.3 [facility] MCHC Auto (RBC) [Mass/Vol]Or dered By: Rosa Romo on 12-20-2021 MCHC (RBC) [Mass/Vol] 33.1 g/dL 32.0-35.0 [facility] MCV Auto (RBC) [Entitic vol] Ordered By: Rosa Romo on 12-20-2021 MCV (RBC) [Entitic vol] 90.0 fL 80-100 [facility] Monocytes Auto (Bld) [#/Vol] Ordered By: Rosa Romo on 12-20-2021 Monocytes (Bld) [#/Vol] 0.4 10*3/uL 0.0-0.8 [facility] Monocytes/100 WBC Auto (Bld) Ordered By: Rosa Romo on 12-20-2021 Monocytes/100 WBC (Bld) 6.3 % . [facility] Neutrophils Auto (Bld) [#/Vo l]Ordered By: Roas Romo on 12-20-2021 Neutrophils (Bld) [#/Vol] 4.0 10*3/uL 1.8-7.7 [facility] Neutrophils/100 WBC Auto (Bl d)Ordered By: Rosa Romo on 12-20-2021 Neutrophils/100 WBC (Bld) 63.2 % . [facility] No Panel InformationOrdered By: Rosa Romo on 12-20-2021 Estimated GFR () > 60 mL/Min [facility] Comment on above: GFR estimated refere nce range: According to KDOQI guidelines, <60 ml/min/1.73m2 is sufficient to diagnose a patient with chronic kidney disease. Pharmacy Creatinine Clearance (Chem 76.40 [facility] Platelet mean volume Auto (B ld) [Entitic vol]Ordered By: Rosa Romo on 12-20-2021 Platelet mean volume (Bld) [Entitic vol] 8.5 fL 6.3-10.7 [facility] Platelets Auto (Bld) [#/Vol] Ordered By: Rosa Romo on 12-20-2021 Platelets (Bld) [#/Vol] 527 10*3/uL 150-450 [facility] Protein [Mass/volume] in Ser um or PlasmaOrdered By: Rosa Romo on 12-20-2021 Protein [Mass/Vol] 6.9 g/dL 6.1-7.9 [facility] RBC Auto (Bld) [#/Vol]Ordere d By: Rosa Romo on 12-20-2021 RBC (Bld) [#/Vol] 4.58 10*6/uL 3.60-5.00 [facility] Serum or plasma alanine black otransferase measurement without P-5'-P (enzymatic activiOrdered By: Rosa Romo on 12-20-2021 ALT No additional P-5'-P [Catalytic activity/Vol] 22 U/L 10-60 [facility] Serum or plasma albumin/glob ulin mass ratioOrdered By: oRsa Romo on 12-20-2021 Albumin/Globulin [Mass ratio] 2.1 {ratio} [facility] Serum or plasma alkaline laurie sphatase measurement (enzymatic activity/volume)Ordered By: Rosa Romo on 12-20-2021 ALP [Catalytic activity/Vol] 52 U/L 32-92 [facility] Serum or plasma aspartate am inotransferase measurement (enzymatic activity/volume)Ordered By: Rosa Romo on 12-20-2021 AST [Catalytic activity/Vol] 24 U/L 10-42 [facility] Serum or plasma calcium los urement (mass/volume)Ordered By: Rosa Romo on 12-20-2021 Calcium [Mass/Vol] 9.9 mg/dL 8.2-10.2 [facility] Serum or plasma chloride theresa surement (moles/volume)Ordered By: Rosa Romo on 12-20-2021 Chloride [Moles/Vol] 100 mmol/L 95-114 [facility] Serum or plasma glucose los urement (mass/volume)Ordered By: Rosa Romo on 12-20-2021 Glucose [Mass/Vol] 89 mg/dL 70-100 [facility] Comment on above: ADA recommended refe rence range Random Glucose Reference Range is dependent on time and content of last meal. Glucose of more than 200 mg/dL in a nonstressed, ambulatory subject supports the diagnosis of Diabetes Mellitus. Serum or plasma high density lipoprotein (HDL) cholesterol measurementOrdered By: Zeus Lamas on 12-20-2021 Cholesterol in HDL [Mass/Vol] 45 mg/dL 35-85 [facility] Comment on above: HDL CHOL ATP-III CLA SSIFICATION Cardiovascular Risk HDL > or equal to 60 mg/dL LOW HDL < 40 mg/dL HIGH Serum or plasma potassium me asurement (moles/volume)Ordered By: Rosa Romo on 12-20-2021 Potassium [Moles/Vol] 4.0 mmol/L 3.5-5.1 [facility] Serum or plasma sodium measu rement (moles/volume)Ordered By: Rosa Romo on 12-20-2021 Sodium [Moles/Vol] 138 mmol/L 136-146 [facility] Serum or plasma total biliru bin measurement (mass/volume)Ordered By: Rosa Romo on 12-20-2021 Bilirubin [Mass/Vol] 1.4 mg/dL 0.3-1.2 [facility] Comment on above: Samples from patient s who have taken Naproxen have shown spurious elevation in Total Bilirubin levels. A metabolite of Naproxen, O-desmethylnaproxen, has been shown to interfere with the Jenjesenia-Adeel method for measuring Total Bilirubin. Serum or plasma total carbon dioxide measurement (moles/volume)Ordered By: Rosa Romo on 12-20-2021 CO2 [Moles/Vol] 30.2 mmol/L 22.0-30.0 [facility] Serum or plasma total choles terol/high density lipoprotein (HDL) cholesterol mass ratOrdered By: Zeus Lamas on 12-20-2021 Cholesterol.total/Chol esterol in HDL [Mass ratio] 3.9 {ratio} <5.0 [facility] Serum or plasma urea nitroge n measurement (mass/volume)Ordered By: Rosa Romo on 12-20-2021 Urea nitrogen [Mass/Vol] 9 mg/dL 9-23 [facility] Triglyceride [Mass/volume] i n Serum or PlasmaOrdered By: Zeus Lamas on 12-20-2021 Triglyceride [Mass/Vol] 57 mg/dL 35-149 [facility] Comment on above: TRIG ATP III CLASSIF ICATION TRIG less than 150 mg/dL Normal TRIG 150-199 mg/dL Borderline high TRIG 200-500 mg/dL High TRIG greater than 500 mg/dL Very high Standard traceable to the Center for Disease Conrtrol and Prevention (CDC) test method. Complete Blood Counton 05-16 Erythrocyte distribution width (RBC) [Ratio] 14.4 % Normal 11.0-15.0 [facility] Assistant Activities Director Comment on above: Performed By: #### C BC #### [facility] [address] [place], [place] [id number] Hematocrit (Bld) [Volume fraction] 44.4 % Normal 35.0-47.0 [facility] Assistant Activities Director Comment on above: Performed By: #### C BC #### [facility] [address] [place], [place] [id number] Hemoglobin (Bld) [Mass/Vol] 14.1 g/dL Normal 11.6-15.5 [facility] Assistant Activities Director Comment on above: Performed By: #### C BC #### [facility] [address] [place], [place] [id number] MCH (RBC) [Entitic mass] 28.3 pg Normal 27.0-33.0 [facility] Comment on above: Performed By: #### C BC #### [facility] [address] [place], [place] [id number] MCHC (RBC) [Mass/Vol] 31.8 g/dL Low 32.0-36.0 [facility] Comment on above: Performed By: #### C BC #### [facility] [address] [place], [place] [id number] MCV (RBC) [Entitic vol] 89 fL Normal 80-100 [facility] Comment on above: Performed By: #### C BC #### [facility] [address] [place], [place] [id number] Platelet mean volume (Bld) [Entitic vol] 10.40 fL Normal 7.50-12.50 [facility] Comment on above: Performed By: #### C BC #### [facility] [address] [place], [place] [id number] Platelets (Bld) [#/Vol] 555 10*3/uL High 140-400 [facility] Comment on above: Performed By: #### C BC #### [facility] [address] [place], [place] [id number] RBC (Bld) [#/Vol] 4.99 10*6/uL Normal 3.90-5.20 [facility] Comment on above: Performed By: #### C BC #### [facility] [address] [place], [place] [id number] RDW-SD 46.8 fL Normal 37.0-50.0 [facility] Comment on above: Performed By: #### C BC #### [facility] [address] [place], [place] [id number] WBC (Bld) [#/Vol] 6.7 10*3/uL Normal 3.8-11.[address] [facility] Comment on above: Performed By: #### C BC #### [facility] [address] [place], [place] [id number] CNOVon 03-17-2021 CNOV Office Visit (CARDMN ) GLORIA ALLEN ([id number]) 1960 F Date Time Provider Department 03/17/21 [...] to seek emergency care. She wore a [employer] event monitor for 12 days in January [...] bearing down or coughing Occur 3x/week Wore [employer] event monitor for 12 days in 01/2021. [...] No sudden deaths, atrial fibrillation. 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 , 3 children, 1 grandchild. Lives in [place], [place] Habits: Tobacco: none. Alcohol: 1 drink [...] acid (RHIANNON (more content not included)... Normal [facility] 03-17-2021 CNPN Telephone (CARDMN) GLORIA ALLEN ([id number]) 1960 F Date Time Provider Department 03/17/21 NIKITA REYES During your visit today, we recorded the following information about you: Philly Nair 03/17/2021 4:06 PM Signed Outside medical records scanned into [employer] drive. Disk uploaded to [employer]: Echocardiogram 01/27/2021. Allergies As of Date: 03/17/2021 (Not on File) Date Reviewed: Never Reviewed Reason for Visit: Received Outside Medical Records [4421] Problem List As Of Date: 03/17/2021 (None) Encounter Status:Closed by PHILLY NAIR on 03/17/21 [facility] 12-31-2020 CNCO Letter Text [facility] CNPNon 12-30-2020 CNPN Telephone (REFPHY) GLORIA ALLEN ([id number]) 1960 F Date Time Provider Department 12/30/20 NO PCP (HISTORICAL) REFPHY During your visit today, we recorded the following information about you: Kyle Crowell 12/30/2020 9:12 AM Signed Patient: Gloria Allen Date of : 1960 Patient phone number: [phone] Referring Provider for the encounter: Zeus Lamas Requesting Provider: Nikita Reyes Reason for requesting visit (RFV/signs and symptoms/diagnosis): palpitations Person calling: via RP fax Return call to: self Medical Records/Insurance Card scanned into [employer]: No Comments: helder Boles 12/31/2020 10:34 AM Signed [facility] RP - Message left for patient to call back to schedule an appointment in EP? for Palpitations, requesting Dr. Reyes per RP referrals. Allergies As of Date: 12/30/2020 (Not on File) Date Reviewed: Never Reviewed Reason for Visit: External Referrals/resources [909] Problem List As Of Date: 12/30/2020 (None) Encounter Status:Closed by KYLE MUNOZ on 12/30/20 [facility] CNPNon 12-23-2020 CNPN Telephone (REFPHY) GLORIA ALLEN ([id number]) 1960 F Date Time Provider Department 12/23/20 NO ONE (HISTORICAL) REFPHY During your visit today, we recorded the following information about you: Alexandria Hernandez 12/23/2020 7:19 AM Signed Patient: Gloria Allen Date of : 1960 Patient phone number: [phone] Referring Provider for the encounter: Dr Zeus Lamas Requesting Provider: Dr Wesley Mallory - Cardiology Reason for requesting visit (RFV/signs and symptoms/diagnosis): Tachycardia, palipatations Person calling: caregiver: ASHLEY Return call to: self Medical Records/Insurance Card scanned into [employer]: Yes Comments: Additional records saved to [employer] [place] Boles 12/23/2020 9:31 AM Signed HVTI [...] Status:Closed by ALEXANDRIA TERRY on 12/23/20 Normal [facility] Albumin [Mass/volume] in Ser um or PlasmaOrdered By: Rosa Romo on 12-16-2020 Albumin [Mass/Vol] 3.9 g/dL 2.9-4.4 [facility] Immunoglobulin light chains. kappa.free [Mass/volume] in SerumOrdered By: Rosa Romo on 12-16-2020 Immunoglobulin light chains.kappa.free (S) [Mass/Vol] 12.3 mg/L 3.3-19.4 [facility] Immunoglobulin light chains. kappa.free/Immunoglobulin light chains.lambda.free [MassOrdered By: Rosa Romo on 12-16-2020 Immunoglobulin light chains.kappa.free/Immu noglobulin light chains.lambda.free (S) [Mass ratio] 0.83 0.26-1.65 [facility] Comment on above: Performed at: [address] [id number] Transmitter Engineer In Charge: Osiel Combs PhD, Phone: [phone] Performed at: [address] [id number] Director: Osiel Combs PhD, Phone: [phone] Immunoglobulin light chains. lambda.free [Mass/volume] in Serum or PlasmaOrdered By: Rosa Romo on 12-16-2020 Immunoglobulin light chains.lambda.free [Mass/Vol] 14.8 mg/L 5.7-26.3 [facility] No Panel InformationOrdered By: Rosa Romo on 12-16-2020 25-Hydroxy Vitamin D Total 51.1 ng/mL 30-100 [facility] Comment on above: VITAMIN D STATUS [...] Electrophoresis M-Sonny Not observed g/dL Not Observed [facility] Protein Electrophoresis Note See comment . [facility] Comment on above: Protein electrophore sis scan will follow via computer, mail, or calenderer delivery. Performed at: [facility] [address] [id number] Transmitter Engineer In Charge: Osiel Combs PhD, Phone: [phone] Protein electrophore sis scan will follow via computer,mail, or calenderer delivery.Performed at: [facility] [employer] [id number] Director: Osiel Combs PhD, Phone: [phone] Protein [Mass/volume] in Ser um or PlasmaOrdered By: Rosa Romo on 12-16-2020 Protein [Mass/Vol] 7.0 g/dL 6.0-8.5 [facility] Serum globulin measurement ( mass/volume)Ordered By: Rosa Romo on 12-16-2020 Globulin (S) [Mass/Vol] 3.1 g/dL 2.2-3.9 [facility] Serum or plasma albumin/glob ulin mass ratioOrdered By: Rosa Romo on 12-16-2020 Albumin/Globulin [Mass ratio] 1.3 {ratio} 0.7-1.7 [facility] Serum or plasma alpha 1 glob ulin measurement by electrophoresis (mass/volume)Ordered By: Rosa Romo on 12-16-2020 Alpha 1 globulin Elph [Mass/Vol] 0.2 g/dL 0.0-0.4 [facility] Serum or plasma alpha 2 glob ulin measurement by electrophoresis (mass/volume)Ordered By: Rosa Romo on 12-16-2020 Alpha 2 globulin Elph [Mass/Vol] 0.7 g/dL 0.4-1.0 [facility] Serum or plasma beta globuli n measurement by electrophoresis (mass/volume)Ordered By: Rosa Romo on 12-16-2020 Beta globulin Elph [Mass/Vol] 1.1 g/dL 0.7-1.3 [facility] Serum or plasma calcitriol m easurement (mass/volume)Ordered By: Rosa Romo on 12-16-2020 1,25-dihydroxyvitamin D3 [Mass/Vol] 60.1 pg/mL 19.9-79.3 [facility] Comment on above: Performed at: [employer] [address] [id number] Transmitter Engineer In Charge: Mitchell Glynn MD, Phone: [phone] Performed at: [employer] [address] [id number] Director: Mitchell Glynn MD, Phone: [phone] Serum or plasma gamma globul in measurement by electrophoresis (mass/volume)Ordered By: Rosa Romo on 12-16-2020 Gamma globulin Elph [Mass/Vol] 1.0 g/dL 0.4-1.8 [facility] Serum or plasma intact parat hyroid hormone measurement (mass/volume)Ordered By: Rosa Romo on 12-16-2020 Parathyrin.intact [Mass/Vol] 44.6 pg/mL 12- [facility] TSH DL <= 0.005 mIU/L QnOrde red By: Rosa Romo on 12-16-2020 TSH Qn 1.61 m[IU]/L 0.45-5.33 [facility] Thyroxine (T4) free [Mass/vo lume] in Serum or PlasmaOrdered By: Rosa Romo on 12-16-2020 Free T4 [Mass/Vol] 0.73 ng/dL 0.61-1.12 [facility] Activated partial thrombopla stin time (aPTT) in platelet poor plasma by coagulation aon 06-15-2020 aPTT Coag (PPP) [Time] 28.4 s 22.9-30.2 [facility] - Coagulationon 0 06-15-2020 PT Coag (PPP) [Time] 11.2 s 9.1-12.0 [facility] No Panel Informationon 06-15 Coagulation Factor VIII Activity 116 % 56-140 [facility] Platelet poor plasma interna tional normalized ratio (INR) by coagulation assay (relaton 06-15-2020 INR Coag (PPP) [Relative time] 1.1 {INR} 0.9-1.2 [facility] Comment on above: INR Therapeutic Rang [...] multimers IB Nom (PPP) See comment . [facility] Comment on above: VWF multimer analysi [...] developed and its performance characteristics determined by [facility]. It has not been cleared or approved by the Food and Drug Administration. Performed at: [employer] [address] [id number] Transmitter Engineer In Charge: Sivakumar Mejia MD, Phone: [phone] VWF multimer analysi s demonstrates a normal pattern anddistribution of bands. This is the pattern of multimersthat occurs in normal individuals as well as in those withtype 1 von Willebrand disease (VWD), type 2M and type 2NVWD. Some acquired von Willebrand syndrome cases may yielda normal pattern as well.No additional results available for further interpretation.This test was developed and its performance characteristicsdetermined by [facility]. It has not been cleared or approvedby the Food and Drug Administration.Performed at: [employer] [address] [id number] Director: Sivakumar Mejia MD, Phone: [phone] Von Willebrand factor activi ty measurementon 06-15-2020 vWf ristocetin cofactor act actual/normal Platelet aggregation (PPP) [Relative time] 62 % 50-200 [facility] Comment on above: Performed at: [facility] [employer] [id number] Transmitter Engineer In Charge: Mitchell Glynn MD, Phone: [phone] Performed at: [facility] [address] [id number] Director: Mitchell Glynn MD, Phone: [phone] Von Willebrand factor antige n measurementon 06-15-2020 vWf Ag Qn (PPP) 86 % 50-200 [facility] Comment on above: This test was develo ped and its performance characteristics determined by [facility]. It has not been cleared or approved by the Food and Drug Administration. This test was develo ped and its performance characteristicsdetermined by [facility]. It has not been cleared orapproved by the Food and Drug Administration. No Panel Informationon 06-04 BCR/abl See comment [facility] Comment on above: See report. Scanned copy available in EMR. Calreticulin Mutation See comment [facility] Comment on above: See report. Scanned copy available in EMR.See report. Scanned copy available in EMR. --- 06/11/20799 --- Calr previously reported as: See report. Scanned copy available in EMR. See report. Scanned copy available in EMR.See report. Scanned copy available in EMR. --- 06/11/20799 ---Calr previously reported as: See report. Scanned copy available in EMR. JAK2 [id number] See comment [facility] Comment on above: See report. Scanned [...] in EMR. MPL Mutation Analysis See comment [facility] Comment on above: See report. Scanned copy available in EMR. C reactive protein [Mass/vol ume] in Serum or Plasmaon 05-31-2020 CRP [Mass/Vol] < 0.5 mg/dL 0.0-1.0 [facility] - Hematology and Cell countson 05-31-2020 WBC (Bld) [#/Vol] 8.9 10*3/uL 4.5-11.0 [facility] Serum homogeneous pattern an tinuclear antibody (STEPHANIE) titeron 05-31-2020 Homogenous nuclear Ab pattern (S) [Titer] N/A [facility] Serum nuclear antibody titer on 05-31-2020 Nuclear Ab (S) [Titer] Negative . [facility] Comment on above: Negative <1:80 Borderline 1:80 Positive >1:80 Performed at: [employer] [address] [place], [place] [id number] Transmitter Engineer In Charge: Osiel Combs PhD, Phone: [phone] Negative <1:80 Borde rline 1:80 Positive >1:80Performed at: [employer] [address] [id number] Director: Osiel Combs PhD, Phone: [phone] Serum or plasma rheumatoid f actor measurement (units/volume)on 05-31-2020 Rheumatoid factor Qn [IU]/mL 0.0-13.9 [facility] Comment on above: Performed at: [employer] [place] [id number] Transmitter Engineer In Charge: Osiel Combs PhD, Phone: [phone] Performed at: [employer] [address] [id number] Director: Osiel Combs PhD, Phone: [phone] OVER READ - NCon 12-20-2017 OVER READ - NC DATE OF EXAM: Dec 20 2017 9:31AMCLINICAL HISTORY/ Name: TIFFANY TRENTTUDY:OVER READ - NC; 12/20/2017 9:31 amINDICATION:score.COMPARIS ON:None. [...] extra arterial structures are otherwise unremarkable. Normal [facility] Healthcare Vital Signs Date Time Vital Sign Value Performing Clinician Faci lity 03-21-2023 11:110400 Body temperature 97.8 [degF] DO Zeus Matik Work Phone: [facility] 03-21-2023 11:11040 Body weight 74.38 kg DO Zeus Matik Work Phone: [facility] 03-21-2023 11:11-0400 Diastolic blood pressure 77 mm[Hg] DO Zeus Cristinachak Work Phone: [facility] 03-21-2023 11:11-0400 Heart rate 64 /min DO Zeus Cristinachak Work Phone: [facility] 03-21-2023 11:11-0400 Respiratory rate 16 /min DO Zeus Cristinachak Work Phone: [facility] 03-21-2023 11:11-0400 SaO2% (BldA) [Mass fraction] 98 % DO Zeus Cristinachak Work Phone: [facility] 03-21-2023 11:11-0400 Systolic blood pressure 132 mm[Hg] DO Zeus Vaschak Work Phone: [facility] 03-24-2022 11:17-0400 Body temperature 97.8 [degF] DO Zeus Cristinachak Work Phone: [facility] 03-24-2022 11:17-0400 Body weight 70.76 kg DO Zeus Cristinachak Work Phone: [facility] 03-24-2022 11:17-0400 Diastolic blood pressure 81 mm[Hg] DO Zeus Vaschak Work Phone: [facility] 03-24-2022 11:17-0400 Heart rate 58 /min DO Zeus Vaschak Work Phone: [facility] 03-24-2022 11:17-0400 Respiratory rate 16 /min DO Zeus Vaschak Work Phone: [facility] 03-24-2022 11:17-0400 SaO2% (BldA) [Mass fraction] 100 % DO Zeus Vaschak Work Phone: [facility] 03-24-2022 11:17-0400 Systolic blood pressure 133 mm[Hg] DO Zeus Vaschak Work Phone: [facility] 12-23-2021 14:43-0400 Body temperature 97.8 [degF] DO Zeus Vaschak Work Phone: [facility] 12-23-2021 14:43-0400 Body weight 69.85 kg DO Zeus Vaschak Work Phone: [facility] 12-23-2021 14:43-0400 Diastolic blood pressure 75 mm[Hg] DO Zeus Vaschak Work Phone: [facility] 12-23-2021 14:43-0400 Heart rate 62 /min DO Zeus Vaschak Work Phone: [facility] 12-23-2021 14:43-0400 Respiratory rate 16 /min DO Zeus Vaschak Work Phone: [facility] 12-23-2021 14:43-0400 SaO2% (BldA) [Mass fraction] 99 % DO Zeus Vaschak Work Phone: [facility] 12-23-2021 14:43-0400 Systolic blood pressure 126 mm[Hg] DO Zeus Vaschak Work Phone: [facility] 05-31-2020 13:09-0500 Body height 172.72 cm DO Zeus Lamas Work Phone: [facility] Encounters Encounter Date Encounter Type Care Provider Facility Start: 09-12-2023 ambulatory Rosa Demetrius Facility:[facility] Start: 09-11-2023 End: 09-11-2023 ambulatory Mckenzie Perkins Facility:[facility] Start: 09-11-2023 End: 09-11-2023 ambulatory DO Zeus Lamas Work Phone: [facility] Work Phone: Start: 09-11-2023 End: 09-11-2023 Patient encounter procedure DO Zeus Thornek Work Phone: [facility] Work Phone: Start: 06-05-2023 End: 06-05-2023 ambulatory MCKENZIE PERKINS Not Available Start: 03-21-2023 End: 03-21-2023 ambulatory DO Zeus Lamas Work Phone: [facility] Work Phone: Start: 03-21-2023 End: 03-21-2023 Registered Recurring DO Zeus Lamas Work Phone: [facility] Work Phone: Start: 03-19-2023 End: 03-19-2023 ambulatory Zeus Lamas Facility:[facility] Start: 03-19-2023 Encounter for genera l adult medical examination without abnormal findings Zeus Lamas [facility] Start: 03-19-2023 Registered Recurring DO Zeus Matik Work Phone: [facility] Work Phone: Start: 03-19-2023 End: 03-19-2023 ambulatory DO Zeus Matik Work Phone: [facility] Work Phone: Start: 03-19-2023 End: 03-19-2023 Patient encounter procedure DO Zeus Vaschak Work Phone: [facility] [place] Work Phone: Start: 09-08-2022 End: 09-08-2022 ambulatory DO Zeus Lamas Work Phone: [facility] Work Phone: Start: 09-08-2022 End: 09-08-2022 Patient encounter procedure DO Zeus Lamas Work Phone: [facility] Work Phone: Start: 08-31-2022 End: 08-31-2022 ambulatory DO Zeus Lamas Work Phone: [facility] Work Phone: Start: 08-31-2022 End: 08-31-2022 Patient encounter procedure DO Zeus Lamas Work Phone: [facility] Work Phone: Start: 03-24-2022 End: 03-24-2022 ambulatory DO Zeus Lamas Work Phone: [facility] Work Phone: Start: 03-24-2022 End: 03-24-2022 Registered Recurring DO Zeus Lamas Work Phone: [facility] Start: 12-23-2021 End: 12-23-2021 Registered Recurring DO Zeus Lamas Work Phone: [facility] Start: 12-20-2021 End: 12-20-2021 Patient encounter procedure DO Zeus Lamas Work Phone: [facility] [place] Start: 12-20-2017 Patient encounter ZEUS LAMAS Fac [...] Detail Author Start: 12-23-2021 Registered Recurring Thrombocytosis [facility] Start: 09-28-2021 [facility] Start: 09-21-2021 [facility] Start: 08-19-2021 [facility] Comprehensive metabo lic 1999 panel - Serum or Plasma [facility] Work Phone: Comprehensive metabo lic 1999 panel - Serum or Plasma [facility] Comprehensive metabo lic 1999 panel - Serum or Plasma [facility] Payers Date Payer Category Payer Self-pay [id number] 2020 Unknown [id number] 2020 Unknown [id number] 1960 Unknown [id number] Unknown TIFFANY TENORIO Unknown [id number] [id number] [id number] Unknown [id number] [id number] [id number] Unknown [id number] [id number] [id number] Social History Date Type Detail Facility Start: 12-23-2021 End: 03-24-2022 Tobacco smoking status NHIS Never smoked tobacco (finding) [facility] Start: 1960 Sex Assigned At Female F [facility] Clinical Notes 05-31-2020 to 03-24-2022 Note Date & Type Note Facility 03-24-2022 Progress note Note Date/Time March 24, 2022 11:23[facility] at [address] [address] Hem/Onc Follow Up Note - OP Signed Patient: Gloria Allen MR#: [id number] : 1960 Acct:[id number] Age/Sex: 61 / F Type: REG RCR Copies to: Zeus Lamas,DO~ Subjective Date/Time of Service: Date of Service: 03/24/2022 Time of Service: Chief Complaint: Patient is here today for [...] iron stores in one month (f/u with ELECTRICAL DESIGNER DRAFTER). If platelets < 450,000 at that time, [...] 03/24/22 @ 16:09 by Rosa Romo MD) Richardson teeth removed - Family History Family History: [...] % (Auto) 66.6, Lymph % (Auto) 24.9, Assumption % (Auto) 5.2, Eos % (Auto) 2.4, Baso % (Auto) 0.9, Neut # (Auto) 5.3, Lymph # (Auto) 2.0, Assumption # (Auto) 0.4, Eos # (Auto) 0.2, [...] 4-6 weeks to review iron studies with ELECTRICAL DESIGNER DRAFTER, 4 month f/u CBC and determine cytoreduction [...] for coordination of care (as documented) and [id number] counseling of patient and/or family. Dictated By: Rosa Romo MD DD/ 21 Signed By: <Electronically signed by MD Rosa Romo> 03/24/22 1615 [facility] Work Phone: 1(313) 836-659607-30-2022 Progress note Author Rosa Romo [facility] December 24, 2021 4:39pm Note Date/Time December 23, 2021 2:49 pm [facility] [place] [address] Hem/Onc Follow Up Note - OP Signed Patient: Gloria Allen MR#: [id number] : 1960 Acct:[id number] Age/Sex: 61 / F Type: REG RCR [...] iron stores in one month (f/u with ELECTRICAL DESIGNER DRAFTER). If platelets < 450,000 at that time, [...] environmental allergies and food allergies. [facility] - History Attestation statement: The following information was validated with the patient. Source: Old Records Reviewed - Medical History Medical History: Medical History (Last Reviewed 12/24/21 @ 16:34 by Rosa Romo MD) delivery delivered - Surgical History Surgical History: Surgical History (Last Reviewed 12/24/21 @ 16:34 by Rosa Romo MD) Richardson teeth removed - Family History Family History: [...] % (Auto) 63.2, Lymph % (Auto) 26.9, Assumption % (Auto) 6.3, Eos % (Auto) 2.9, Baso % (Auto) 0.7, Neut # (Auto) 4.0, Lymph # (Auto) 1.7, [place] # (Auto) 0.4, Eos # (Auto) 0.2, [...] 4-6 weeks to review iron studies with ELECTRICAL DESIGNER DRAFTER, 4 month f/u CBC and determine cytoreduction [...] for coordination of care (as documented) and [id number] counseling of patient and/or family. Dictated By: Rosa Romo MD DD/ 1448 Signed By: <Electronically signed by MD Rosa Romo> 12/24/21 8312 [facility] Work Phone: 1(554) 946-760504-23-2022 Progress note Author Rosa Romo [facility] September 17, 2021 6:26pm Note Date/Time September 16, 2021 12: 45pm [facility] [place] at [address] [address] Hem/Onc Follow Up Note - OP Signed Patient: Gloria Allen MR#: [id number] : 1960 Acct:[id number] Age/Sex: 61 / F Type: REG RCR [...] iron stores in one month (f/u with ELECTRICAL DESIGNER DRAFTER). If platelets < 450,000 at that time, [...] environmental allergies and food allergies. [facility] - History Attestation statement: The following information was validated with the patient. Source: Old Records Reviewed - Medical History Medical History: Medical History (Last Reviewed 09/17/21 @ 18:19 by Rosa Romo MD) delivery delivered - Surgical History Surgical History: Surgical History (Last Reviewed 09/17/21 @ 18:19 by Rosa Romo MD) Richardson teeth removed - Family History Family History: [...] 4-6 weeks to review iron studies with ELECTRICAL DESIGNER DRAFTER, 4 month f/u CBC and determine cytoreduction [...] for coordination of care (as documented) and [id number] counseling of patient and/or family. Dictated By: Rosa Romo MD DD/ 1245 Signed By: <Electronically signed by MD Rosa Romo> 09/17/21 0667 [facility] Work Phone: 1(563) 479-118703-25-2022 Procedure [facility]03[facility]25[facility]12-23-2021 Progress note Author Rosa Romo [facility] May 19, 2021 7:48pm Note Date/Time May 19, 2021 3:41pm [facility] at [address] [address] Hem/Onc Follow Up Note - OP Signed Patient: Gloria Allen MR#: [id number] : 1960 Acct:[id number] Age/Sex: 61 / F Type: REG RCR Copies to: Zeus Lamas~ Subjective Date/Time of Service: Date of Service: [...] environmental allergies and food allergies. [facility] - History Attestation statement: The following information was validated with the patient. Source: Old Records Reviewed - Medical History Medical History: Medical History (Last Reviewed 05/19/21 @ 15:43 by Rosa Romo MD) delivery delivered - Surgical History Surgical History: Surgical History (Last Reviewed 05/19/21 @ 15:43 by Rosa Romo MD) Richardson teeth removed - Family History Family History: [...] 08:50 12/16/20 08:50 Outside Labs: Labs at [facility] laboratory: 05/16/2021: White blood cells 6700, [...] noted on monitoring. Transcribed By: ELIZABETH 03/17/21 0644 Dictated By: Zeus Lamas DO 03/16/21 2872 Assessment and Plan - TNM Staging Staging: [...] for coordination of care (as documented) and pdvm-zo-ktzo counseling of patient and/or family. Dictated By: Rosa Romo MD DD/ 1534 Signed By: <Electronically signed by MD Rosa Romo> 05/19/211947 [facility] Work Phone: 1(877) 789-702910-21-2021 NoteHNO ID: [id number] Author: Nikita Reyes MD Service: ? Author [...] to seek emergency care. She wore a [employer] event monitor for 12 days in January [...] bearing down or coughing Occur 3x/week Wore [employer] event monitor for 12 days in 01/2021. [...] No sudden deaths, atrial fibrillation. 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 , 3 children, 1 grandchild. Lives in [place], [place] Habits: Tobacco: none. Alcohol: 1 drink [...] mg tablet T (more content not included)... [facility]08-03-2021 Progress note Author Rosa Romo [facility] December 28, 2020 7:12am Note Date/Time December 27, 2020 3:4 6pm [facility] [place] [address] Hem/Onc Follow Up Note - OP Signed Patient: Gloria Allen MR#: [id number] : 1960 Acct:[id number] Age/Sex: 60 / F Type: REG RCR [...] 12/28/20 @ 07:08 by Rosa Romo MD) Richardson teeth removed - Family History Family History: [...] for coordination of care (as documented) and gzjn-ny-fdjg counseling of patient and/or family. Dictated By: Rosa Romo MD DD/ 1545 Signed By: <Electronically signed by MD Rosa Romo> 12/28/20 0712 [facility] Work Phone: 1(844) 817-885704-20-2021 Progress note Author Rosa Romo [facility] September 14, 2020 7:40pm Note Date/Time September 13, 2020 4:0 3pm [facility] [place] [address] Hem/Onc Follow Up Note - OP Signed Patient: Gloria Allen MR#: [id number] : 1960 Acct:[id number] Age/Sex: 60 / F Type: REG RCR [...] environmental allergies and food allergies. [facility] - History Attestation statement: The following information was validated with the patient. Source: Old Records Reviewed - Medical History Medical History: Medical History (Last Reviewed 09/14/20 @ 19:34 by Rosa Romo MD) delivery delivered - Surgical History Surgical History: Surgical History (Last Reviewed 09/14/20 @ 19:34 by Rosa Romo MD) Richardson teeth removed - Family History Family History: [...] % (Auto) 70.2, Lymph % (Auto) 19.6, [place] % (Auto) 7.3, Eos % (Auto) 2.3, Baso % (Auto) 0.6, Neut # (Auto) 6.0, Lymph # (Auto) 1.7, [place] # (Auto) 0.6, Eos # (Auto) 0.2, [...] for coordination of care (as documented) and fnsm-lu-xgfp counseling of patient and/or family. Dictated By: Rosa Romo MD DD/ 7314 Signed By: <Electronically signed by MD Rosa Romo> 09/14/201939 [facility] Work Phone: 1(489) 816-365801-18-2021 Progress note Author Rosa Romo [facility] June 14, 2020 4:10pm Note Date/Time June 14, 2020 3 :26pm [facility] at [place] [id number] Hem/Onc Follow Up Note - OP Signed Patient: Gloria Allen MR#: [id number] : 1960 Acct:[id number] Age/Sex: 60 / F Type: REG RCR [...] 06/14/20 @ 15:59 by Rosa Romo MD) Richardson teeth removed - Family History Family History: [...] for coordination of care (as documented) and iwrx-ym-jucs counseling of patient and/or family. Dictated By: Rosa Romo MD DD/ 1525 Signed By: <Electronically signed by MD Rosa Romo> 06/14/20 1610 [facility] Work Phone: 1([phone]) 383-427501-04-2021 Consult note Author Rosa Romo [facility] May 31, 2020 8:56pm Note Date/Time May 31, 2020 1: 29pm [facility] at [place] [id number] Hem/Onc Consult Note - OP Signed Patient: Gloria Allen MR#: [id number] : 1960 Acct:[id number] Age/Sex: 60 / F Type: REG RCR [...] pain with you in followup. [facility] - Medical History Medical History: Medical History (Last Reviewed 05/31/20 @ 20:40 by Rosa Romo MD) delivery delivered - Surgical History Surgical History: Surgical History (Last Reviewed 05/31/20 @ 20:40 by Rosa Romo MD) Richardson teeth removed - Family History Family History: [...] for coordination of care (as documented) and bkhi-ru-dtju counseling of patient and/or family. Dictated By: Rosa Romo MD DD/ 1329 Signed By: <Electronically signed by MD Rosa Romo> 05/31/202055 [facility] Work Phone: Evaluation note* Diagnosis Onset Date Resolution Status Thrombocytosis acute Epigastric pain chronic Essential thrombocytosis chr onic Iron deficiency anemia chron ic [facility] Work Phone: Evaluation noteNo assessment information available [facility] Work Phone: Evaluation note* Diagnosis Onset Date Resolution Status Thrombocytosis acute Epigastric pain chronic Essential thrombocytosis chr onic Iron deficiency anemia resol chelly [facility] Work Phone: Progress note Author Rosa Romo [facility] December 24, 2021 4:39pm Note Date/Time December 23, 2021 2:49 pm [facility] [place] at [address] [address] Hem/Onc Follow Up Note - OP Signed Patient: Gloria Allen MR#: [id number] : 1960 Acct:[id number] Age/Sex: 61 / F Type: REG RCR [...] iron stores in one month (f/u with [employer]). If platelets < 450,000 at that time, [...] environmental allergies and food allergies. [facility] - History Attestation statement: The following information was validated with the patient. Source: Old Records Reviewed - Medical History Medical History: Medical History (Last Reviewed 12/24/21 @ 16:34 by Rosa Romo MD) delivery delivered - Surgical History Surgical History: Surgical History (Last Reviewed 12/24/21 @ 16:34 by Rosa Romo MD) Richardson teeth removed - Family History Family History: [...] % (Auto) 63.2, Lymph % (Auto) 26.9, Assumption % (Auto) 6.3, Eos % (Auto) 2.9, Baso % (Auto) 0.7, Neut # (Auto) 4.0, Lymph # (Auto) 1.7, [place] # (Auto) 0.4, Eos # (Auto) 0.2, [...] 4-6 weeks to review iron studies with [employer], 4 month f/u CBC and determine cytoreduction [...] for coordination of care (as documented) and jlvp-lm-uvdr counseling of patient and/or family. Dictated By: Rosa Romo MD DD/ 1448 Signed By: <Electronically signed by MD Rosa Romo> 12/24/21 8672 [facility] Work Phone: Progress note Author Rosa Romo [facility] March 24, 2022 4:15pm Note Date/Time March 24, 2022 1 1:23am [facility] [place] [address] Hem/Onc Follow Up Note - OP Signed Patient: Gloria Allen MR#: [id number] : 1960 Acct:[id number] Age/Sex: 61 / F Type: REG RCR [...] iron stores in one month (f/u with [employer]). If platelets < 450,000 at that time, [...] environmental allergies and food allergies. [facility] - History Attestation statement: The following information was validated with the patient. Source: Old Records Reviewed - Medical History Medical History: Medical History (Last Reviewed 03/24/22 @ 16:09 by Rosa Romo MD) delivery delivered - Surgical History Surgical History: Surgical History (Last Reviewed 03/24/22 @ 16:09 by Rosa Romo MD) Richardson teeth removed - Family History Family History: [...] % (Auto) 66.6, Lymph % (Auto) 24.9, Assumption % (Auto) 5.2, Eos % (Auto) 2.4, Baso % (Auto) 0.9, Neut # (Auto) 5.3, Lymph # (Auto) 2.0, [place] # (Auto) 0.4, Eos # (Auto) 0.2, [...] 4-6 weeks to review iron studies with [employer], 4 month f/u CBC and determine cytoreduction [...] for coordination of care (as documented) and doex-kw-uzjj counseling of patient and/or family. Dictated By: Rosa Romo MD DD/ 1122 Signed By: <Electronically signed by MD Rosa Romo> 03/24/22 1618 [facility] Work Phone: Summary Purpose Family History No [...] section and content) DATE CREATED AUTHOR 12/21/2017 [facility] DATE CREATED AUTHOR AUTHOR'S ORGANIZ ATION 05/16/2021 [facility] dical Specialist DATE CREATED AUTHOR AUTHOR'S ORGANIZ ATION 06/30/2021 [facility] DATE CREATED AUTHOR AUTHOR'S ORGANIZ ATION 06/06/2023 [facility] dical Specialists [facility] DATE CREATED AUTHOR AUTHOR'S ORGANIZ ATION 09/14/2023 [facility] Care Teams (unrecognized sec [...] BE BASED ON THE PRIMARY CLINICAL RECORDS. [facility] [employer] [facility]. provides no warranty or guarantee of the accuracy or completeness of information in this document.
== END 2023-10-17 11:06 | disposition home or self-care (01) ==
LOC: VC 11:05
PROVIDERS: PCP Radiology Diagnostic Radiology; Visit Provider Radiology Diagnostic Radiology
DX: I80.01 Phlebitis and thrombophlebitis of superficial vessels of right lower extremity (principal)
CPT/HCPCS: 93971; G0463

== ENCOUNTER 2023-11-07 09:04 | Outpatient (OUT) | payer OTHER, SELFPAY ==
--- NOTE | 2023-11-07 09:07 | VEIN_ITS ---
The [address] [address] Patient Name: JONA ALLEN MRN: [id number] date: 1960 Sex: F Assigned Patient Location: Current Patient Location: Accession/Order Number: [id number] Exam Date: 11/07/2023 09:07 Report Date: 11/07/2023 11:28 At the request of: HEMANT MCHUGH Procedure: VC INJ Foam Sclerosant WUS SERVICE PLUMBER PROCEDURE: VC INJ Foam Sclerosant WUS SERVICE PLUMBER, left leg COMPARISON: None. HISTORY: Pain due to varicose veins of bilateral legs I83.813 Pre-operative Diagnosis: CEAP class C2 venous insufficiency with pain, tenderness, edema and incompetent left saphenous and varicose vein(s), chronic venous insufficiency left leg secondary to venous incompetence Post-operative Diagnosis: CEAP class C2 venous insufficiency with pain, tenderness, edema and incompetent left saphenous and varicose vein(s), chronic venous insufficiency left leg secondary to venous incompetence Procedure Performed: 1. Ultrasound-guided microfoam chemical ablation with Varithenaregistered 2. Intraoperative ultrasound guidance Anesthesia: None Indications for Procedure: 63-year-old female who presents with a long history of lower extremity varicose veins with pain. The patient failed conservative medical therapy including medical compression stockings, exercise and analgesics. Prior procedures include endovenous laser ablation. Multiple incompetent varicosities of the left leg. Duplex scan showed reflux and enlarged diameters up to 5 mm. The patient underwent informed consent including management options where the complications of infection, bleeding, pain, and skin injury were discussed. Particular attention was spent discussing thrombus extension and deep vein thrombosis as well as the possibility of pulmonary embolus and treatment with oral or injectable blood thinners. Procedure: The patient walked to the procedure room. All applicable staff donned appropriate apparel. A procedure timeout was performed to confirm correct patient, correct extremity, correct procedure, and correct room set-up including presence of all applicable supplies, devices, and drugs. A duplex ultrasound, performed by myself confirmed the location and incompetence of branch saphenous varicosities and their course was marked on the skin together with the dilated tributaries. The extent of treatment of the vein and the associated varicosities was determined through ultrasound mapping. The skin was prepped and then punctured with a butterfly needle and advanced under ultrasound guidance. The Varithenaregistered canister was activated and the canister was primed and purged as required in the instructions for use. Varithenaregistered was drawn into a sterile syringe. The following injections were made: 7 cc injected into a 5 mm incompetent varicose vein medial distal lower leg 2 cc injected into a 3 mm varicose vein medial left ankle 5 cc injected into a 4 mm varicose vein medial proximal left lower leg Varithenaregistered was slowly administered at 0.5-1.0 cc/second with close observation by ultrasound of its course in the vessels. Total volume utilized was: 14 cc. Following administration of Varithenaregistered the leg was elevated and the patient was asked to repeatedly dorsiflex the ankle to limit flow of Varithenaregistered into perforating veins. Once appropriate spasm had been confirmed in the treated veins, the vascular catheter was removed from the leg and light pressure was applied over the puncture site for hemostasis. The common femoral and deep superficial veins were then evaluated for flow and compressibility prior to dressing placement. The lower extremity was kept elevated at 45 degrees above the horizontal and cording material was applied over the saphenous segments and tributaries to allow for eccentric compression over the target vessels including the targeted saphenous vein(s). A multilayer dressing was applied consisting of foam pads, coban and thigh-high 20-30 mm Hg compression elastic support hose were placed on the patient. The leg was lowered only after compression had been applied and the patient was immediately ambulatory. The patient ambulated 10 minutes under supervision and was without apparent concerns at time of release. Post-care instructions include advising patient to keep post-treatment bandages in place and dry for 48 hours, avoid extended periods of inactivity, avoid heavy exercise for one week, wear compression stockings on the treated leg continuously for two weeks, to walk daily for 10 minutes over the next month. The patient was instructed to take an anti-inflammatory medicine as needed and to follow up for color duplex scan of the Saphenous veins, the treated branch saphenous varicosities, the adjacent deep veins, and additional treatment within 7 days. PERSONNEL: Lisa Cintron Electronically authenticated by: HEMANT MCHUGH Date: 11/07/2023 11:28
--- OUTSIDE RECORDS SUMMARY | 2023-11-07 09:09 | XMS_ITS | CCD ---
Author Organization [facility] Care Team Providers Care Vp Name Role Phone ZEUS LAMAS Unavailable Unavailable ZEUS LAMAS Unavailable Unavailable ZEUS LAMAS Unavailable Unavailable DO Zeus Lamas Primary Care Provider DO Zeus Lamas Attending Provider [phone] DO Zeus Lamas Referring Provider [phone] MD Rosa Romo Attending Provider DO Zeus Lamas Primary Care Provider DO Zeus Lamas Referring Provider MD Rosa Romo Attending Provider [phone] DO Zeus Lamas Primary Care Provider [phone] DO Mckenzie Perkins Attending Provider [phone] DO Zeus Lamas Primary Care Provider DO Zeus Lamas Attending Provider DO Zeus Lamas Referring Provider MD Rosa Romo Attending Provider [phone] DO Zeus Lamas Referring Provider [phone] MD Rosa Romo Attending Provider [phone] MCKENZIE PERKINS Attending Unavailable DO Zeus [...] (Bld) [#/Vol] 0.1 10*3/uL Normal 0.0-0.2 [facility] Comment on above: Result Comment: PERF ORMED BY: [place] [address] PATHOLOGIST IMPREGNATOR HELPER MIGUEL LARSEN M.D. Performed By: #### C BC, CMP #### [address] Basophils/100 WBC (Bld) 1.0 % Normal . [facility] Comment on above: Performed By: #### C BC, CMP #### [address] Eosinophils (Bld) [#/Vol] 0.3 10*3/uL Normal 0.0-0.45 [facility] Comment on above: Performed By: #### C BC, CMP #### [place] [address] Eosinophils/100 WBC (Bld) 4.8 % Normal . [facility] Comment on above: Performed By: #### C BC, CMP #### [address] Erythrocyte distribution width (RBC) [Ratio] 16.0 % High 11.9-15.3 [facility] Comment on above: Performed By: #### C BC, CMP #### [address] Hematocrit (Bld) [Volume fraction] 42.6 % Normal 34.0-46.4 [facility] Comment on above: Performed By: #### C BC, CMP #### [address] Hemoglobin (Bld) [Mass/Vol] 13.8 g/dL Normal 11.8-15.4 [facility] Comment on above: Performed By: #### C BC, CMP #### [address] Lymphocytes (Bld) [#/Vol] 2.3 10*3/uL Normal 1.00-4.8 [facility] Comment on above: Performed By: #### C BC, CMP #### [address] Lymphocytes/100 WBC (Bld) 32.7 % Normal . [facility] Comment on above: Performed By: #### C BC, CMP #### [address] MCH (RBC) [Entitic mass] 28.9 pg Normal 24.7-34.3 [facility] Comment on above: Performed By: #### C BC, CMP #### [address] MCV (RBC) [Entitic vol] 89.0 fL Normal 80-100 [facility] Comment on above: Performed By: #### C BC, CMP #### [address] Mean Corpuscular HGB Conc 32.5 g/dL Normal 32.0-35.0 [facility] Comment on above: Performed By: #### C BC, CMP #### [address] Monocytes (Bld) [#/Vol] 0.5 10*3/uL Normal 0.0-0.8 [facility] Comment on above: Performed By: #### C BC, CMP #### [address] Monocytes/100 WBC (Bld) 7.2 % Normal . [facility] Comment on above: Performed By: #### C BC, CMP #### [address] Neutrophils (Bld) [#/Vol] 3.9 10*3/uL Normal 1.8-7.7 [facility] Comment on above: Performed By: #### C BC, CMP #### [address] Neutrophils/100 WBC (Bld) 54.3 % Normal . [facility] Comment on above: Performed By: #### C BC, CMP #### [address] NRBC% 0.0 /100{WBC} Normal 0-0.5 [facility] Comment on above: Performed By: #### C BC, CMP #### [address] Platelet mean volume (Bld) [Entitic vol] 8.2 fL Normal 6.3-10.7 [facility] Comment on above: Performed By: #### C BC, CMP #### [address] Platelets (Bld) [#/Vol] 599 10*3/uL High 150-450 [facility] Comment on above: Performed By: #### C BC, CMP #### [address] RBC (Bld) [#/Vol] 4.78 10*6/uL Normal 3.60-5.00 [facility] Comment on above: Performed By: #### C BC, CMP #### [address] WBC (Bld) [#/Vol] 7.1 10*3/uL Normal 3.8-11.6 [facility] Comment on above: Performed By: #### C BC, CMP #### [address] Comprehensive Metabolic Pane douglas 09-12-2023 Albumin [Mass/Vol] 4.8 g/dL Normal 3.5-5.7 [facility] Comment on above: Performed By: #### C BC, CMP #### [address] Albumin/Globulin [Mass ratio] 2.2 {ratio} Normal [facility] Comment on above: Performed By: #### C BC, CMP #### [address] ALP [Catalytic activity/Vol] 56 U/L Normal 34-104 [facility] Comment on above: Performed By: #### C BC, CMP #### [address] ALT [Catalytic activity/Vol] 15 U/L Normal 7-52 [facility] Comment on above: Performed By: #### C BC, CMP #### [address] Anion gap [Moles/Vol] 9.3 mmol/L Normal 6.0-15.0 [facility] Comment on above: Performed By: #### C BC, CMP #### [address] AST [Catalytic activity/Vol] 21 U/L Normal 13-39 [facility] Comment on above: Performed By: #### C BC, CMP #### [address] Bilirubin [Mass/Vol] 1.2 mg/dL High 0.3-1.0 [facility] Comment on above: Performed By: #### C BC, CMP #### [address] Calcium [Mass/Vol] 10.3 mg/dL Normal 8.6-10.3 [facility] Comment on above: Performed By: #### C BC, CMP #### [address] Chloride [Moles/Vol] 103 mmol/L Normal 98-107 [facility] Comment on above: Performed By: #### C BC, CMP #### [address] CO2 [Moles/Vol] 32.3 mmol/L High 21.0-31.0 [facility] Comment on above: Performed By: #### C BC, CMP #### [address] Creatinine [Mass/Vol] 0.82 mg/dL Normal 0.60-1.20 [facility] Comment on above: Performed By: #### C BC, CMP #### [address] Creatinine Clr Calc Pharmacy 70.84 Normal [facility] Comment on above: Result Comment: PERF ORMED BY: [place] [address] PATHOLOGIST IMPREGNATOR HELPER MIGUEL LARSEN M.D. Performed By: #### C BC, CMP #### [address] GFR/1.73 sq M.predicted MDRD (S/P/Bld) [Vol rate/Area] mL/min/{1.73_m2} Normal [facility] Comment on above: Performed By: #### C BC, CMP #### [address] Globulin (S) [Mass/Vol] 2.2 g/dL Normal [facility] Comment on above: Performed By: #### C BC, CMP #### [address] [place] [address] [place] Glucose [Mass/Vol] 77 mg/dL Normal 70-100 [facility] Comment on above: Result Comment: [facility] Glucose Reference Range is dependent on time and content of last meal. Glucose of more than 200 mg/dL in a nonstressed, ambulatory subject supports the diagnosis of Diabetes Mellitus. ADA recommended reference range Performed By: #### C BC, CMP #### [facility] [address] Potassium [Moles/Vol] 4.6 mmol/L Normal 3.5-5.1 [facility] Comment on above: Performed By: #### C BC, CMP #### [facility] [address] Protein [Mass/Vol] 7.0 g/dL Normal 6.4-8.9 [facility] Comment on above: Performed By: #### C BC, CMP #### [address] Sodium [Moles/Vol] 140 mmol/L Normal 136-145 [facility] Comment on above: Performed By: #### C BC, CMP #### [address] Urea nitrogen [Mass/Vol] 18 mg/dL Normal 7-25 [facility] Comment on above: Performed By: #### C BC, CMP #### [address] MM screening mammo BI w/CADo n 09-11-2023 MM screening mammo BI w/CAD [facility] [place] [address] [place] [address] Mammography Report Signed Patient: Gloria Allen MR#: [id number] [birth year] : 1960 Acct:[id number] Age/Sex: 63 / F ADM Date: 09/11/23 Loc: [place] Room: Type: [facility] Attending Dr: Mckenzie Perkins DO Copies [...] Diana Matos M.D.09/11/2023 1:30 PM Dictation Location: [facility] Transcribed By: CHRISTOFER 09/11/23 1330 Dictated By: Diana Matos MD 09/11/23 1327 Signed By: 09/11/23 1330 Normal [facility] Alanine aminotransferase [En zymatic activity/volume] in Serum or PlasmaOrdered By: Rosa Romo on 03-19-2023 ALT [Catalytic activity/Vol] 13 U/L 7-52 [facility] Albumin [Mass/volume] in Ser um or Plasma by Bromocresol green (BCG) dye binding methoOrdered By: Rosa Romo on 03-19-2023 Albumin BCG dye [Mass/Vol] 4.5 g/dL 3.5-5.7 [facility] Alkaline phosphatase [Enzyma tic activity/volume] in Serum or PlasmaOrdered By: Rosa Romo on 03-19-2023 ALP [Catalytic activity/Vol] 56 U/L 34-104 [facility] Aspartate aminotransferase [ Enzymatic activity/volume] in Serum or PlasmaOrdered By: Rosa Romo on 03-19-2023 AST [Catalytic activity/Vol] 19 U/L 13-39 [facility] Basophils Auto (Bld) [#/Vol] Ordered By: Rosa Romo on 03-19-2023 Basophils (Bld) [#/Vol] 0.1 10*3/uL 0.0-0.2 [facility] Basophils/100 WBC Auto (Bld) Ordered By: Rosa Romo on 03-19-2023 Basophils/100 WBC (Bld) 0.9 % . [facility] Bilirubin.total [Mass/volume ] in Serum or PlasmaOrdered By: Rosa Romo on 03-19-2023 Bilirubin [Mass/Vol] 1.4 mg/dL 0.3-1.0 [facility] Comment on above: Samples from patient s who have taken Naproxen have shown spurious elevation in Total Bilirubin levels. A metabolite of Naproxen, O-desmethylnaproxen, has been shown to interfere with the Pop-Adeel method for measuring Total Bilirubin. Calcium [Mass/volume] in Ser um or PlasmaOrdered By: Rosa Romo on 03-19-2023 Calcium [Mass/Vol] 9.7 mg/dL 8.6-10.3 [facility] Carbon dioxide, total [Moles /volume] in Serum or PlasmaOrdered By: Rosa Romo on 03-19-2023 CO2 [Moles/Vol] 31.9 mmol/L 21.0-31.0 [facility] Chloride [Moles/volume] in S anne or PlasmaOrdered By: Rosa Romo on 03-19-2023 Chloride [Moles/Vol] 104 mmol/L 98-107 [facility] Cholesterol [Mass/volume] in Serum or PlasmaOrdered By: Zeus Lamas on 03-19-2023 Cholesterol [Mass/Vol] 179 mg/dL 140-200 [facility] Comment on above: Chol less than 200 m g/dl low riskChol 201-239 mg/dl borderline riskChol 240 mg/dl and greater high risk Cholesterol in LDL Calc [Mas s/Vol]Ordered By: Zeus Lamas on 03-19-2023 Cholesterol in LDL [Mass/Vol] 123 mg/dL 0-100 [facility] Comment on above: LDL ATP III CLASSIFI CATIONLDL less than 100 mg/dL OptimalLDL 100-129 mg/dL Near or above optimalLDL 130-159 mg/dL Borderline highLDL 160-189 mg/dL HighLDL greater than 189 mg/dL Very high Cholesterol in VLDL Calc [Ma ss/Vol]Ordered By: Zeus Lamas on 03-19-2023 Cholesterol in VLDL [Mass/Vol] 12 mg/dL [facility] Comprehensive Metabolic Pane douglas 03-19-2023 Albumin [Mass/Vol] 4.5 g/dL Normal 3.5-5.7 [facility] Comment on above: Order Comment: PT FA STED 12 HOURS Performed By: #### S CAN CBC, CMP #### [facility] [address] Albumin/Globulin [Mass ratio] 2.0 {ratio} Normal [facility] Comment on above: Order Comment: PT FA STED 12 HOURS Performed By: #### S CAN CBC, CMP #### [address] ALP [Catalytic activity/Vol] 56 U/L Normal 34-104 [facility] Comment on above: Order Comment: PT FA STED 12 HOURS Performed By: #### S CAN CBC, CMP #### [address] ALT [Catalytic activity/Vol] 13 U/L Normal 7-52 [facility] Comment on above: Order Comment: PT FA STED 12 HOURS Performed By: #### S CAN CBC, CMP #### [facility] [address] [place] [address] Anion gap [Moles/Vol] 9.3 mmol/L Normal 6.0-15.0 [facility] Comment on above: Order Comment: PT FA STED 12 HOURS Performed By: #### S CAN CBC, CMP #### [address] AST [Catalytic activity/Vol] 19 U/L Normal 13-39 [facility] Comment on above: Order Comment: PT FA STED 12 HOURS Performed By: #### S CAN CBC, CMP #### [address] Bilirubin [Mass/Vol] 1.4 mg/dL High 0.3-1.0 [facility] Comment on above: Order Comment: PT FA STED 12 HOURS Result Comment: Samp les from patients who have taken Naproxen have shown spurious elevation in Total Bilirubin levels. A metabolite of Naproxen, O-desmethylnaproxen, has been shown to interfere with the Jendrassik-Grof method for measuring Total Bilirubin. Performed By: #### S CAN CBC, CMP #### [address] Calcium [Mass/Vol] 9.7 mg/dL Normal 8.6-10.3 [facility] Comment on above: Order Comment: PT FA STED 12 HOURS Performed By: #### S CAN CBC, CMP #### [address] Chloride [Moles/Vol] 104 mmol/L Normal 98-107 [facility] Comment on above: Order Comment: PT FA STED 12 HOURS Performed By: #### S CAN CBC, CMP #### [place] [address] [place] CO2 [Moles/Vol] 31.9 mmol/L High 21.0-31.0 [facility] Comment on above: Order Comment: PT FA STED 12 HOURS Performed By: #### S CAN CBC, CMP #### [place] [address] [place] Creatinine [Mass/Vol] 0.77 mg/dL Normal 0.60-1.20 [facility] Comment on above: Order Comment: PT FA STED 12 HOURS Performed By: #### S CAN CBC, CMP #### [place] [address] [place] Creatinine Clr Calc Pharmacy 76.42 Normal [facility] Comment on above: Order Comment: PT FA STED 12 HOURS Result Comment: PERF ORMED BY: [place] [address] PATHOLOGIST IMPREGNATOR HELPER MIGUEL LARSEN M.D. Performed By: #### S CAN CBC, CMP #### [facility] [address] [place] [address] [place] GFR/1.73 sq M.predicted MDRD (S/P/Bld) [Vol rate/Area] mL/min/{1.73_m2} Normal [facility] Comment on above: Order Comment: PT FA STED 12 HOURS Performed By: #### S CAN CBC, CMP #### [facility] [address] [place] [address] [place] Globulin (S) [Mass/Vol] 2.2 g/dL Normal [facility] Comment on above: Order Comment: PT FA STED 12 HOURS Performed By: #### S CAN CBC, CMP #### [address] Glucose [Mass/Vol] 79 mg/dL Normal 70-100 [facility] Comment on above: Order Comment: PT FA STED 12 HOURS Result Comment: [place] Glucose Reference Range is dependent on time and content of last meal. Glucose of more than 200 mg/dL in a nonstressed, ambulatory subject supports the diagnosis of Diabetes Mellitus. ADA recommended reference range Performed By: #### S CAN CBC, CMP #### [place] [address] [place] Potassium [Moles/Vol] 4.2 mmol/L Normal 3.5-5.1 [facility] Comment on above: Order Comment: PT FA STED 12 HOURS Performed By: #### S CAN CBC, CMP #### [place] [address] [place] Protein [Mass/Vol] 6.7 g/dL Normal 6.4-8.9 [facility] Comment on above: Order Comment: PT FA STED 12 HOURS Performed By: #### S CAN CBC, CMP #### [place] [address] [place] Sodium [Moles/Vol] 141 mmol/L Normal 136-145 [facility] Comment on above: Order Comment: PT FA STED 12 HOURS Performed By: #### S CAN CBC, CMP #### [place] [address] [place] Urea nitrogen [Mass/Vol] 13 mg/dL Normal 7-25 [facility] Comment on above: Order Comment: PT FA STED 12 HOURS Performed By: #### S CAN CBC, CMP #### [facility] [address] Creatinine [Mass/volume] in Serum or PlasmaOrdered By: Rosa Romo on 03-19-2023 Creatinine [Mass/Vol] 0.77 mg/dL 0.60-1.20 [facility] Eosinophils Auto (Bld) [#/Vo l]Ordered By: Rosa Romo on 03-19-2023 Eosinophils (Bld) [#/Vol] 0.3 10*3/uL 0.0-0.45 [facility] Eosinophils/100 WBC Auto (Bl d)Ordered By: Rosa Romo on 03-19-2023 Eosinophils/100 WBC (Bld) 4.9 % . [facility] Erythrocyte distribution wid th Auto (RBC) [Ratio]Ordered By: Rosa Romo on 03-19-2023 Erythrocyte distribution width (RBC) [Ratio] 15.4 % 11.9-15.3 [facility] Globulin Calc (S) [Mass/Vol] Ordered By: Rosa Romo on 03-19-2023 Globulin (S) [Mass/Vol] 2.2 g/dL [facility] Glucose [Mass/volume] in Ser um or PlasmaOrdered By: Rosa Romo on 03-19-2023 Glucose [Mass/Vol] 79 mg/dL 70-100 [facility] Comment on above: ADA recommended refe rence rangeRandom Glucose Reference Range is dependent on time and content of last meal. Glucose of more than 200 mg/dL in a nonstressed, ambulatory subject supports the diagnosis of Diabetes Mellitus. Hematocrit Auto (Bld) [Volum e fraction]Ordered By: Rosa Romo on 03-19-2023 Hematocrit (Bld) [Volume fraction] 41.5 % 34.0-46.4 [facility] Hemoglobin [Mass/volume] in BloodOrdered By: Rosa Room on 03-19-2023 Hemoglobin (Bld) [Mass/Vol] 13.7 g/dL 11.8-15.4 [facility] Leukocytes [#/volume] correc prema for nucleated erythrocytes in Blood by Automated counOrdered By: Rosa Romo on 03-19-2023 WBC corrected for nucl RBC Auto (Bld) [#/Vol] 6.5 10*3/uL 3.8-11.6 [facility] Lipid Panelon 03-19-2023 Cholesterol [Mass/Vol] 179 mg/dL Normal 140-200 [facility] Comment on above: Order Comment: PT FA STED 12 HOURS Result Comment: Chol less than 200 mg/dl low risk Chol 201-239 mg/dl borderline risk Chol 240 mg/dl and greater high risk Performed By: #### L IPID #### [facility] [address] [place] [id number] [place] Cholesterol in HDL [Mass/Vol] 44 mg/dL Normal 23-92 [facility] Comment on above: Order Comment: PT FA STED 12 HOURS Result Comment: HDL CHOL ATP-III CLASSIFICATION Cardiovascular Risk HDL > or equal to 60 mg/dL LOW HDL < 40 mg/dL HIGH Performed By: #### L IPID #### [facility] [address] [place] [address] [place] Cholesterol.total/Chol esterol in HDL [Mass ratio] 4.1 {ratio} Normal <5.0 [facility] Comment on above: Order Comment: PT FA STED 12 HOURS Result Comment: PERF ORMED BY: [place] [address] PATHOLOGIST IMPREGNATOR HELPER MIGUEL LARSEN M.D. Performed By: #### L IPID #### [facility] [address] [place] [id number] [place] LDL Cholesterol,Calculated 123 mg/dL High 0-100 [facility] Comment on above: Order Comment: PT FA STED 12 HOURS Result Comment: LDL ATP III CLASSIFICATION LDL less than 100 mg/dL Optimal LDL 100-129 mg/dL Near or above optimal LDL 130-159 mg/dL Borderline high LDL 160-189 mg/dL High LDL greater than 189 mg/dL Very high Performed By: #### L IPID #### [facility] [address] [place] [address] [place] Triglyceride w/Reflex 62 mg/dL Normal 0-149 [facility] Comment on above: Order Comment: PT FA STED 12 HOURS Result Comment: TRIG ATP III CLASSIFICATION TRIG less than 150 mg/dL Normal TRIG 150-199 mg/dL Borderline high TRIG 200-500 mg/dL High TRIG greater than 500 mg/dL Very high Standard traceable to the Center for Disease Conrtrol and Prevention (CDC) test method. Performed By: #### L IPID #### [facility] [address] VLDL CHOLESTEROL 12 mg/dL Normal [facility] Comment on above: Order Comment: PT FA STED 12 HOURS Performed By: #### L IPID #### [facility] [address] Lymphocytes Auto (Bld) [#/Vo l]Ordered By: Rosa Romo on 03-19-2023 Lymphocytes (Bld) [#/Vol] 2.1 10*3/uL 1.00-4.8 [facility] Lymphocytes/100 WBC Auto (Bl d)Ordered By: Rosa Romo on 03-19-2023 Lymphocytes/100 WBC (Bld) 32.8 % . [facility] MCH Auto (RBC) [Entitic mass ]Ordered By: Rosa Romo on 03-19-2023 MCH (RBC) [Entitic mass] 28.8 pg 24.7-34.3 [facility] MCHC Auto (RBC) [Mass/Vol]Or dered By: Rosa Romo on 03-19-2023 MCHC (RBC) [Mass/Vol] 33.1 g/dL 32.0-35.0 [facility] MCV Auto (RBC) [Entitic vol] Ordered By: Rosa Romo on 03-19-2023 MCV (RBC) [Entitic vol] 87.1 fL 80-100 [facility] Monocytes Auto (Bld) [#/Vol] Ordered By: Rosa Romo on 03-19-2023 Monocytes (Bld) [#/Vol] 0.5 10*3/uL 0.0-0.8 [facility] Monocytes/100 WBC Auto (Bld) Ordered By: Rosa Romo on 03-19-2023 Monocytes/100 WBC (Bld) 7.3 % . [facility] Neutrophils Auto (Bld) [#/Vo l]Ordered By: Rosa Romo on 03-19-2023 Neutrophils (Bld) [#/Vol] 3.5 10*3/uL 1.8-7.7 [facility] Neutrophils/100 WBC Auto (Bl d)Ordered By: Rosa Romo on 03-19-2023 Neutrophils/100 WBC (Bld) 54.1 % . [facility] No Panel InformationOrdered By: Rosa Romo on 03-19-2023 Estimated GFR (CKD-EPI) > 60.0 mL/Min [facility] Creatinine Clearance (Chem 76.42 [facility] Nucleated erythrocytes [Pres ence] in Blood by Automated countOrdered By: Rosa Romo on 03-19-2023 Nucleated RBC Auto Ql (Bld) 0.0 /100{WBC} 0-0.5 [facility] Platelet adequacy [Presence] in Blood by Light microscopyOrdered By: Rosa Romo on 03-19-2023 Platelets LM Ql (Bld) Increased Normal [facility] Platelet mean volume Auto (B ld) [Entitic vol]Ordered By: Rosa Romo on 03-19-2023 Platelet mean volume (Bld) [Entitic vol] 8.5 fL 6.3-10.7 [facility] Platelet morphology finding [Identifier] in BloodOrdered By: Rosa Romo on 03-19-2023 Platelet morphology finding Nom (Bld) Normal Normal [facility] Platelets Auto (Bld) [#/Vol] Ordered By: Rosa Romo on 03-19-2023 Platelets (Bld) [#/Vol] 537 10*3/uL 150-450 [facility] Potassium [Moles/volume] in Serum or PlasmaOrdered By: Rosa Romo on 03-19-2023 Potassium [Moles/Vol] 4.2 mmol/L 3.5-5.1 [facility] Protein [Mass/volume] in Ser um or PlasmaOrdered By: Rosa Romo on 03-19-2023 Protein [Mass/Vol] 6.7 g/dL 6.4-8.9 [facility] RBC Auto (Bld) [#/Vol]Ordere d By: Rosa Romo on 03-19-2023 RBC (Bld) [#/Vol] 4.76 10*6/uL 3.60-5.00 [facility] RBC morphologyOrdered By: Rosie Romo on 03-19-2023 RBC morphology finding Nom (Bld) Normal Normal [facility] Scan and CBCon 03-19-2023 Basophils (Bld) [#/Vol] 0.1 10*3/uL Normal 0.0-0.2 [facility] Comment on above: Performed By: #### S CAN CBC, CMP #### [facility] [address] [place] [address] [place] Basophils/100 WBC (Bld) 0.9 % Normal . [facility] Comment on above: Performed By: #### S CAN CBC, CMP #### [facility] [address] [place] [address] [place] Eosinophils (Bld) [#/Vol] 0.3 10*3/uL Normal 0.0-0.45 [facility] Comment on above: Performed By: #### S CAN CBC, CMP #### [facility] [address] [place] [id number] [place] Eosinophils/100 WBC (Bld) 4.9 % Normal . [facility] Comment on above: Performed By: #### S CAN CBC, CMP #### [facility] [address] Erythrocyte distribution width (RBC) [Ratio] 15.4 % High 11.9-15.3 [facility] Comment on above: Performed By: #### S CAN CBC, CMP #### [facility] [address] [place] [id number] [place] Hematocrit (Bld) [Volume fraction] 41.5 % Normal 34.0-46.4 [facility] Comment on above: Performed By: #### S CAN CBC, CMP #### [facility] [address] [place] [address] [place] Hemoglobin (Bld) [Mass/Vol] 13.7 g/dL Normal 11.8-15.4 [facility] Comment on above: Performed By: #### S CAN CBC, CMP #### [facility] [address] Lymphocytes (Bld) [#/Vol] 2.1 10*3/uL Normal 1.00-4.8 [facility] Comment on above: Performed By: #### S CAN CBC, CMP #### [address] Lymphocytes/100 WBC (Bld) 32.8 % Normal . [facility] Comment on above: Performed By: #### S CAN CBC, CMP #### [address] MCH (RBC) [Entitic mass] 28.8 pg Normal 24.7-34.3 [facility] Comment on above: Performed By: #### S CAN CBC, CMP #### [address] MCV (RBC) [Entitic vol] 87.1 fL Normal 80-100 [facility] Comment on above: Performed By: #### S CAN CBC, CMP #### [address] Mean Corpuscular HGB Conc 33.1 g/dL Normal 32.0-35.0 [facility] Comment on above: Performed By: #### S CAN CBC, CMP #### [address] Monocytes (Bld) [#/Vol] 0.5 10*3/uL Normal 0.0-0.8 [facility] Comment on above: Performed By: #### S CAN CBC, CMP #### [place] [address] [place] Monocytes/100 WBC (Bld) 7.3 % Normal . [facility] Comment on above: Performed By: #### S CAN CBC, CMP #### [address] Neutrophils (Bld) [#/Vol] 3.5 10*3/uL Normal 1.8-7.7 [facility] Comment on above: Performed By: #### S CAN CBC, CMP #### [address] Neutrophils/100 WBC (Bld) 54.1 % Normal . [facility] Comment on above: Performed By: #### S CAN CBC, CMP #### [address] NRBC% 0.0 /100{WBC} Normal 0-0.5 [facility] Comment on above: Performed By: #### S CAN CBC, CMP #### [address] Platelet Estimate Increased Normal Normal [facility] Comment on above: Performed By: #### S CAN CBC, CMP #### [address] Platelet mean volume (Bld) [Entitic vol] 8.5 fL Normal 6.3-10.7 [facility] Comment on above: Performed By: #### S CAN CBC, CMP #### [address] Platelet Morphology Normal Normal Normal [facility] Comment on above: Result Comment: PERF ORMED BY: [place] [address] PATHOLOGIST IMPREG[employer]ATOR [employer]PER MIGUEL LARSEN M.D. Performed By: #### S CAN CBC, CMP #### [address] Platelets (Bld) [#/Vol] 537 10*3/uL High 150-450 [facility] Comment on above: Performed By: #### S CAN CBC, CMP #### [address] RBC (Bld) [#/Vol] 4.76 10*6/uL Normal 3.60-5.00 [facility] Comment on above: Performed By: #### S CAN CBC, CMP #### [address] RBC morphology finding Nom (Bld) Normal Normal Normal [facility] Comment on above: Performed By: #### S CAN CBC, CMP #### [facility] [address] WBC (Bld) [#/Vol] 6.5 10*3/uL Normal 3.8-11.6 [facility] Comment on above: Performed By: #### S CAN CBC, CMP #### [facility] [address] Serum or plasma albumin/glob ulin mass ratioOrdered By: Rosa Romo on 03-19-2023 Albumin/Globulin [Mass ratio] 2.0 {ratio} [facility] Serum or plasma anion gap de terminationOrdered By: Rosa Romo on 03-19-2023 Anion gap [Moles/Vol] 9.3 mmol/L 6.0-15.0 [facility] Serum or plasma high density lipoprotein (HDL) cholesterol measurementOrdered By: Zeus Lamas on 03-19-2023 Cholesterol in HDL [Mass/Vol] 44 mg/dL [facility] Comment on above: HDL CHOL ATP-III CLA SSIFICATION Cardiovascular RiskHDL > or equal to 60 mg/dL LOWHDL < 40 mg/dL HIGH Serum or plasma total choles terol/high density lipoprotein (HDL) cholesterol mass ratOrdered By: Zeus Lamas on 03-19-2023 Cholesterol.total/Chol esterol in HDL [Mass ratio] 4.1 {ratio} <5.0 [facility] Sodium [Moles/volume] in Ser um or PlasmaOrdered By: Rosa Romo on 03-19-2023 Sodium [Moles/Vol] 141 mmol/L 136-145 [facility] Triglyceride [Mass/volume] i n Serum or PlasmaOrdered By: Zeus Lamas on 03-19-2023 Triglyceride [Mass/Vol] 62 mg/dL 0-149 [facility] Comment on above: TRIG ATP III CLASSIF ICATIONTRIG less than 150 mg/dL NormalTRIG 150-199 mg/dL Borderline highTRIG 200-500 mg/dL High TRIG greater than 500 mg/dL Very highStandard traceable to the Center for Disease Conrtrol and Prevention (CDC) test method. Urea nitrogen [Mass/volume] in Serum or PlasmaOrdered By: Rosa Romo on 03-19-2023 Urea nitrogen [Mass/Vol] 13 mg/dL 7 [facility] WBC Auto (Bld) [#/Vol]Ordere d By: Rosa Romo on 03-19-2023 WBC (Bld) [#/Vol] 6.5 10*3/uL 3.8-11.6 [facility] Complete Blood Count Auto Di ffon 09-22-2022 Basophils (Bld) [#/Vol] 0.1 10*3/uL Normal 0.0-0.2 [facility] Comment on above: Result Comment: PERF ORMED BY: [place] [address] PATHOLOGIST IMPREGNATOR HELPER MIGUEL LARSEN M.D. Performed By: #### C BC #### [address] Basophils/100 WBC (Bld) 0.7 % Normal . [facility] Comment on above: Performed By: #### C BC #### [address] Eosinophils (Bld) [#/Vol] 0.3 10*3/uL Normal 0.0-0.45 [facility] Comment on above: Performed By: #### C BC #### [address] Eosinophils/100 WBC (Bld) 4.4 % Normal . [facility] Comment on above: Performed By: #### C BC #### [address] Erythrocyte distribution width (RBC) [Ratio] 14.7 % Normal 11.9-15.3 [facility] Comment on above: Performed By: #### C BC #### [address] Hematocrit (Bld) [Volume fraction] 42.0 % Normal 34.0-46.4 [facility] Comment on above: Performed By: #### C BC #### [address] Hemoglobin (Bld) [Mass/Vol] 13.7 g/dL Normal 11.8-15.4 [facility] Comment on above: Performed By: #### C BC #### [address] Lymphocytes (Bld) [#/Vol] 1.8 10*3/uL Normal 1.00-4.8 [facility] Comment on above: Performed By: #### C BC #### [address] Lymphocytes/100 WBC (Bld) 22.7 % Normal . [facility] Comment on above: Performed By: #### C BC #### [address] MCH (RBC) [Entitic mass] 28.8 pg Normal 24.7-34.3 [facility] Comment on above: Performed By: #### C BC #### [address] MCV (RBC) [Entitic vol] 88.4 fL Normal 80-100 [facility] Comment on above: Performed By: #### C BC #### [address] Mean Corpuscular HGB Conc 32.6 g/dL Normal 32.0-35.0 [facility] Comment on above: Performed By: #### C BC #### [address] Monocytes (Bld) [#/Vol] 0.5 10*3/uL Normal 0.0-0.8 [facility] Comment on above: Performed By: #### C BC #### [address] Monocytes/100 WBC (Bld) 6.5 % Normal . [facility] Comment on above: Performed By: #### C BC #### [address] Neutrophils (Bld) [#/Vol] 5.1 10*3/uL Normal 1.8-7.7 [facility] Comment on above: Performed By: #### C BC #### [facility] [address] Neutrophils/100 WBC (Bld) 65.7 % Normal . [facility] Comment on above: Performed By: #### C BC #### [facility] [address] NRBC% 0.1 /100{WBC} Normal 0-0.5 [facility] Comment on above: Performed By: #### C BC #### [address] Platelet mean volume (Bld) [Entitic vol] 8.5 fL Normal 6.3-10.7 [facility] Comment on above: Performed By: #### C BC #### [address] Platelets (Bld) [#/Vol] 551 10*3/uL High 150-450 [facility] Comment on above: Performed By: #### C BC #### [address] RBC (Bld) [#/Vol] 4.75 10*6/uL Normal 3.60-5.00 [facility] Comment on above: Performed By: #### C BC #### [address] WBC (Bld) [#/Vol] 7.7 10*3/uL Normal 3.8-11.6 [facility] Comment on above: Performed By: #### C BC #### [place] [address] [place] Basophils Auto (Bld) [#/Vol] Ordered By: Rosa Romo on 03-22-2022 Basophils (Bld) [#/Vol] 0.1 10*3/uL 0.0-0.2 [facility] Basophils/100 WBC Auto (Bld) Ordered By: Rosa Romo on 03-22-2022 Basophils/100 WBC (Bld) 0.9 % . [facility] Body fluid albumin measureme nt (mass/volume)Ordered By: Rosa Room on 03-22-2022 Albumin (Body fld) [Mass/Vol] 4.3 g/dL 3.2-5.5 [facility] Creatinine and Glomerular fi ltration rate.predicted panel (S/P/Bld)Ordered By: Rosa Romo on 03-22-2022 Creatinine [Mass/Vol] 0.79 mg/dL 0.44-1.03 [facility] Eosinophils Auto (Bld) [#/Vo l]Ordered By: Rosa Romo on 03-22-2022 Eosinophils (Bld) [#/Vol] 0.2 10*3/uL 0.0-0.45 [facility] Eosinophils/100 WBC Auto (Bl d)Ordered By: Rosa Romo on 03-22-2022 Eosinophils/100 WBC (Bld) 2.4 % . [facility] Erythrocyte distribution wid th Auto (RBC) [Ratio]Ordered By: Rosa Romo on 03-22-2022 Erythrocyte distribution width (RBC) [Ratio] 14.7 % 11.9-15.3 [facility] Estimated glomerular filtrat ion rate (GFR) non- AmericanOrdered By: Rosa Romo on 03-22-2022 GFR/1.73 sq M.predicted among non-blacks MDRD (S/P/Bld) [Vol rate/Area] > 60 mL/Min [facility] Globulin Calc (S) [Mass/Vol] Ordered By: Rosa Romo on 03-22-2022 Globulin (S) [Mass/Vol] 2.2 g/dL [facility] Hematocrit Auto (Bld) [Volum e fraction]Ordered By: Rosa Romo on 03-22-2022 Hematocrit (Bld) [Volume fraction] 41.9 % 34.0-46.4 [facility] Hemoglobin [Mass/volume] in BloodOrdered By: Rosa Romo on 03-22-2022 Hemoglobin (Bld) [Mass/Vol] 13.6 g/dL 11.8-15.4 [facility] Laboratory - Hematology and Cell countsOrdered By: Rosa Romo on 03-22-2022 Nucleated RBC/100 WBC (Bld) [Ratio] 0.0 % 0-0.5 [facility] Leukocytes [#/volume] in Blo od by Automated countOrdered By: Rosa Romo on 03-22-2022 WBC (Bld) [#/Vol] 8.0 10*3/uL 4.5-11.0 [facility] Lymphocytes Auto (Bld) [#/Vo l]Ordered By: Rosa Romo on 03-22-2022 Lymphocytes (Bld) [#/Vol] 2.0 10*3/uL 1.00-4.8 [facility] Lymphocytes/100 WBC Auto (Bl d)Ordered By: Rosa Romo on 03-22-2022 Lymphocytes/100 WBC (Bld) 24.9 % . [facility] MCH Auto (RBC) [Entitic mass ]Ordered By: Rosa Romo on 03-22-2022 MCH (RBC) [Entitic mass] 29.4 pg 24.7-34.3 [facility] MCHC Auto (RBC) [Mass/Vol]Or dered By: Rosa Romo on 03-22-2022 MCHC (RBC) [Mass/Vol] 32.5 g/dL 32.0-35.0 [facility] MCV Auto (RBC) [Entitic vol] Ordered By: Rosa Romo on 03-22-2022 MCV (RBC) [Entitic vol] 90.4 fL 80-100 [facility] Monocytes Auto (Bld) [#/Vol] Ordered By: Rosa Room on 03-22-2022 Monocytes (Bld) [#/Vol] 0.4 10*3/uL 0.0-0.8 [facility] Monocytes/100 WBC Auto (Bld) Ordered By: Rsoa Romo on 03-22-2022 Monocytes/100 WBC (Bld) 5.2 % . [facility] Neutrophils Auto (Bld) [#/Vo l]Ordered By: Rosa Romo on 03-22-2022 Neutrophils (Bld) [#/Vol] 5.3 10*3/uL 1.8-7.7 [facility] Neutrophils/100 WBC Auto (Bl d)Ordered By: Rosa Romo on 03-22-2022 Neutrophils/100 WBC (Bld) 66.6 % . [facility] No Panel InformationOrdered By: Rosa Romo on 03-22-2022 Estimated GFR () > 60 mL/Min [facility] Comment on above: GFR estimated refere nce range: According to KDOQI guidelines, <60 ml/min/1.73m2 is sufficient to diagnose a patient with chronic kidney disease. Pharmacy Creatinine Clearance (Chem 75.44 [facility] Platelet mean volume Auto (B ld) [Entitic vol]Ordered By: Rosa Romo on 03-22-2022 Platelet mean volume (Bld) [Entitic vol] 8.3 fL 6.3-10.7 [facility] Platelets Auto (Bld) [#/Vol] Ordered By: Rosa Romo on 03-22-2022 Platelets (Bld) [#/Vol] 506 10*3/uL 150-450 [facility] Protein [Mass/volume] in Ser um or PlasmaOrdered By: Rosa Romo on 03-22-2022 Protein [Mass/Vol] 6.5 g/dL 6.1-7.9 [facility] RBC Auto (Bld) [#/Vol]Ordere d By: Rosa Romo on 03-22-2022 RBC (Bld) [#/Vol] 4.63 10*6/uL 3.60-5.00 [facility] Serum or plasma alanine black otransferase measurement without P-5'-P (enzymatic activiOrdered By: Rosa Romo on 03-22-2022 ALT No additional P-5'-P [Catalytic activity/Vol] 17 U/L 10-60 [facility] Serum or plasma albumin/glob ulin mass ratioOrdered By: Rosa Romo on 03-22-2022 Albumin/Globulin [Mass ratio] 2.0 {ratio} [facility] Serum or plasma alkaline laurie sphatase measurement (enzymatic activity/volume)Ordered By: Rosa Romo on 03-22-2022 ALP [Catalytic activity/Vol] 56 U/L 32-92 [facility] Serum or plasma anion gap de terminationOrdered By: Rosa Romo on 03-22-2022 Anion gap [Moles/Vol] 11.6 mmol/L 6.0-15.0 [facility] Serum or plasma aspartate am inotransferase measurement (enzymatic activity/volume)Ordered By: Rosa Romo on 03-22-2022 AST [Catalytic activity/Vol] 22 U/L 10-42 [facility] Serum or plasma calcium los urement (mass/volume)Ordered By: Rosa Romo on 03-22-2022 Calcium [Mass/Vol] 9.7 mg/dL 8.2-10.2 [facility] Serum or plasma chloride theresa surement (moles/volume)Ordered By: Rosa Romo on 03-22-2022 Chloride [Moles/Vol] 100 mmol/L 95-114 [facility] Serum or plasma glucose los urement (mass/volume)Ordered By: Rosa Romo on 03-22-2022 Glucose [Mass/Vol] 123 mg/dL 70-100 [facility] Comment on above: ADA recommended refe rence rangeRandom Glucose Reference Range is dependent on time and content of last meal. Glucose of more than 200 mg/dL in a nonstressed, ambulatory subject supports the diagnosis of Diabetes Mellitus. Serum or plasma potassium me asurement (moles/volume)Ordered By: Rosa Romo on 03-22-2022 Potassium [Moles/Vol] 4.4 mmol/L 3.5-5.1 [facility] Serum or plasma sodium measu rement (moles/volume)Ordered By: Rosa Romo on 03-22-2022 Sodium [Moles/Vol] 137 mmol/L 136-146 [facility] Serum or plasma total biliru bin measurement (mass/volume)Ordered By: Rosa Romo on 03-22-2022 Bilirubin [Mass/Vol] 1.8 mg/dL 0.3-1.2 [facility] Comment on above: Samples from patient s who have taken Naproxen have shown spurious elevation in Total Bilirubin levels. A metabolite of Naproxen, O-desmethylnaproxen, has been shown to interfere with the Pop-Adeel method for measuring Total Bilirubin. Serum or plasma total carbon dioxide measurement (moles/volume)Ordered By: Rosa Romo on 03-22-2022 CO2 [Moles/Vol] 29.8 mmol/L 22.0-30.0 [facility] Serum or plasma urea nitroge n measurement (mass/volume)Ordered By: Rosa Romo on 03-22-2022 Urea nitrogen [Mass/Vol] 12 mg/dL 9- [facility] Basophils Auto (Bld) [#/Vol] Ordered By: Rosa Romo on 12-20-2021 Basophils (Bld) [#/Vol] 0.0 10*3/uL 0.0-0.2 [facility] Basophils/100 WBC Auto (Bld) Ordered By: Rosa Romo on 12-20-2021 Basophils/100 WBC (Bld) 0.7 % . [facility] Blood hemoglobin measurement (mass/volume)Ordered By: Rosa Romo on 12-20-2021 Hemoglobin (Bld) [Mass/Vol] 13.6 g/dL 11.8-15.4 [facility] Blood leukocytes automated c ount (number/volume)Ordered By: Rosa Romo on 12-20-2021 WBC (Bld) [#/Vol] 6.3 10*3/uL 4.5-11.0 [facility] Body fluid albumin measureme nt (mass/volume)Ordered By: Rosa Romo on 12-20-2021 Albumin (Body fld) [Mass/Vol] 4.7 g/dL 3.2-5.[address] [facility] [address] biopsyOrdered By: Rosa Galindo se on 12-20-2021 Transferrin [Mass/Vol] 258 mg/dL 180-380 [facility] Cholesterol [Mass/volume] in Serum or PlasmaOrdered By: Zeus Lamas on 12-20-2021 Cholesterol [Mass/Vol] 175 mg/dL 140-200 [facility] Comment on above: Chol less than 200 m g/dl low risk Chol 201-239 mg/dl borderline risk Chol 240 mg/dl and greater high risk Cholesterol in LDL Calc [Mas s/Vol]Ordered By: Zeus Lamas on 12-20-2021 Cholesterol in LDL [Mass/Vol] 119 mg/dL 0-100 [facility] Comment on above: LDL ATP III CLASSIFI CATION LDL less than 100 mg/dL Optimal LDL 100-129 mg/dL Near or above optimal LDL 130-159 mg/dL Borderline high LDL 160-189 mg/dL High LDL greater than 189 mg/dL Very high Cholesterol in VLDL Calc [Ma ss/Vol]Ordered By: Zeus aLmas on 12-20-2021 Cholesterol in VLDL [Mass/Vol] 11 mg/dL [facility] Creatinine and Glomerular fi ltration rate.predicted panel (S/P/Bld)Ordered By: Rosa Romo on 12-20-2021 Creatinine [Mass/Vol] 0.78 mg/dL 0.44-1.03 [facility] Eosinophils Auto (Bld) [#/Vo l]Ordered By: Rosa Romo on 12-20-2021 Eosinophils (Bld) [#/Vol] 0.2 10*3/uL 0.0-0.45 [facility] Eosinophils/100 WBC Auto (Bl d)Ordered By: Rosa Romo on 12-20-2021 Eosinophils/100 WBC (Bld) 2.9 % . [facility] Erythrocyte distribution wid th Auto (RBC) [Ratio]Ordered By: Rosa Romo on 12-20-2021 Erythrocyte distribution width (RBC) [Ratio] 15.6 % 11.9-15.3 [facility] Estimated glomerular filtrat ion rate (GFR) non- AmericanOrdered By: Rosa Romo on 12-20-2021 GFR/1.73 sq M.predicted among non-blacks MDRD (S/P/Bld) [Vol rate/Area] > 60 mL/Min [facility] Ferritin [Mass/volume] in Se rum or PlasmaOrdered By: Rosa Romo on 12-20-2021 Ferritin [Mass/Vol] 278.9 ng/mL 11-306.8 [facility] Globulin Calc (S) [Mass/Vol] Ordered By: Rosa Romo on 12-20-2021 Globulin (S) [Mass/Vol] 2.2 g/dL [facility] Hematocrit Auto (Bld) [Volum e fraction]Ordered By: Rosa Romo on 12-20-2021 Hematocrit (Bld) [Volume fraction] 41.2 % 34.0-46.4 [facility] Iron [Mass/volume] in Serum or PlasmaOrdered By: Rosa Romo on 12-20-2021 Iron [Mass/Vol] 90 ug/dL 40-150 [facility] Iron binding capacity [Mass/ volume] in Serum or PlasmaOrdered By: Rosa Romo on 12-20-2021 Iron binding capacity [Mass/Vol] 361 ug/dL 255-450 [facility] Iron saturation [Mass Fracti on] in Serum or PlasmaOrdered By: Rosa Romo on 12-20-2021 Iron saturation [Mass fraction] 24.0 % 20-50 [facility] Laboratory - Hematology and Cell countsOrdered By: Rosa Romo on 12-20-2021 Nucleated RBC/100 WBC (Bld) [Ratio] 0.0 % 0-0.5 [facility] Lymphocytes Auto (Bld) [#/Vo l]Ordered By: Rosa Romo on 12-20-2021 Lymphocytes (Bld) [#/Vol] 1.7 10*3/uL 1.00-4.8 [facility] Lymphocytes/100 WBC Auto (Bl d)Ordered By: Rosa Romo on 12-20-2021 Lymphocytes/100 WBC (Bld) 26.9 % . [facility] MCH Auto (RBC) [Entitic mass ]Ordered By: Rosa Romo on 12-20-2021 MCH (RBC) [Entitic mass] 29.8 pg 24.7-34.3 [facility] MCHC Auto (RBC) [Mass/Vol]Or dered By: Rosa Romo on 12-20-2021 MCHC (RBC) [Mass/Vol] 33.1 g/dL 32.0-35.0 [facility] MCV Auto (RBC) [Entitic vol] Ordered By: Rosa Romo on 12-20-2021 MCV (RBC) [Entitic vol] 90.0 fL 80-100 [facility] Monocytes Auto (Bld) [#/Vol] Ordered By: Rosa Romo on 12-20-2021 Monocytes (Bld) [#/Vol] 0.4 10*3/uL 0.0-0.8 [facility] Monocytes/100 WBC Auto (Bld) Ordered By: Rosa Romo on 12-20-2021 Monocytes/100 WBC (Bld) 6.3 % . [facility] Neutrophils Auto (Bld) [#/Vo l]Ordered By: Rosa Romo on 12-20-2021 Neutrophils (Bld) [#/Vol] 4.0 10*3/uL 1.8-7.7 [facility] Neutrophils/100 WBC Auto (Bl d)Ordered By: Rosa Romo on 12-20-2021 Neutrophils/100 WBC (Bld) 63.2 % . [facility] No Panel InformationOrdered By: Rosa Romo on 12-20-2021 Estimated GFR () > 60 mL/Min [facility] Comment on above: GFR estimated refere nce range: According to KDOQI guidelines, <60 ml/min/1.73m2 is sufficient to diagnose a patient with chronic kidney disease. Pharmacy Creatinine Clearance (Chem 76.40 [facility] Platelet mean volume Auto (B ld) [Entitic vol]Ordered By: Rosa Romo on 12-20-2021 Platelet mean volume (Bld) [Entitic vol] 8.5 fL 6.3-10.7 [facility] Platelets Auto (Bld) [#/Vol] Ordered By: Rosa Romo on 12-20-2021 Platelets (Bld) [#/Vol] 527 10*3/uL 150-450 [facility] Protein [Mass/volume] in Ser um or PlasmaOrdered By: Rosa Romo on 12-20-2021 Protein [Mass/Vol] 6.9 g/dL 6.1-7.9 [facility] RBC Auto (Bld) [#/Vol]Ordere d By: Rosa Romo on 12-20-2021 RBC (Bld) [#/Vol] 4.58 10*6/uL 3.60-5.00 [facility] Serum or plasma alanine black otransferase measurement without P-5'-P (enzymatic activiOrdered By: Rosa Romo on 12-20-2021 ALT No additional P-5'-P [Catalytic activity/Vol] 22 U/L 10-60 [facility] Serum or plasma albumin/glob ulin mass ratioOrdered By: Rosa Romo on 12-20-2021 Albumin/Globulin [Mass ratio] 2.1 {ratio} [facility] Serum or plasma alkaline laurie sphatase measurement (enzymatic activity/volume)Ordered By: Rosa Romo on 12-20-2021 ALP [Catalytic activity/Vol] 52 U/L 32-92 [facility] Serum or plasma aspartate am inotransferase measurement (enzymatic activity/volume)Ordered By: Rosa Romo on 12-20-2021 AST [Catalytic activity/Vol] 24 U/L 10-42 [facility] Serum or plasma calcium los urement (mass/volume)Ordered By: Rosa Romo on 12-20-2021 Calcium [Mass/Vol] 9.9 mg/dL 8.2-10.2 [facility] Serum or plasma chloride theresa surement (moles/volume)Ordered By: Rosa Romo on 12-20-2021 Chloride [Moles/Vol] 100 mmol/L 95-114 [facility] Serum or plasma glucose los urement (mass/volume)Ordered By: Rosa Romo on 12-20-2021 Glucose [Mass/Vol] 89 mg/dL 70-100 [facility] Comment on above: ADA recommended refe rence range Random Glucose Reference Range is dependent on time and content of last meal. Glucose of more than 200 mg/dL in a nonstressed, ambulatory subject supports the diagnosis of Diabetes Mellitus. Serum or plasma high density lipoprotein (HDL) cholesterol measurementOrdered By: Zeus Lamas on 12-20-2021 Cholesterol in HDL [Mass/Vol] 45 mg/dL 35-85 [facility] Comment on above: HDL CHOL ATP-III CLA SSIFICATION Cardiovascular Risk HDL > or equal to 60 mg/dL LOW HDL < 40 mg/dL HIGH Serum or plasma potassium me asurement (moles/volume)Ordered By: Rosa Romo on 12-20-2021 Potassium [Moles/Vol] 4.0 mmol/L 3.5-5.1 [facility] Serum or plasma sodium measu rement (moles/volume)Ordered By: Rosa Romo on 12-20-2021 Sodium [Moles/Vol] 138 mmol/L 136-146 [facility] Serum or plasma total biliru bin measurement (mass/volume)Ordered By: Rosa Romo on 12-20-2021 Bilirubin [Mass/Vol] 1.4 mg/dL 0.3-1.2 [facility] Comment on above: Samples from patient s who have taken Naproxen have shown spurious elevation in Total Bilirubin levels. A metabolite of Naproxen, O-desmethylnaproxen, has been shown to interfere with the Jenjesenia-Adeel method for measuring Total Bilirubin. Serum or plasma total carbon dioxide measurement (moles/volume)Ordered By: Rosa Romo on 12-20-2021 CO2 [Moles/Vol] 30.2 mmol/L 22.0-30.0 [facility] Serum or plasma total choles terol/high density lipoprotein (HDL) cholesterol mass ratOrdered By: Zeus Lamas on 12-20-2021 Cholesterol.total/Chol esterol in HDL [Mass ratio] 3.9 {ratio} <5.0 [facility] Serum or plasma urea nitroge n measurement (mass/volume)Ordered By: Rosa Romo on 12-20-2021 Urea nitrogen [Mass/Vol] 9 mg/dL 9-23 [facility] Triglyceride [Mass/volume] i n Serum or PlasmaOrdered By: Zeus Lamas on 12-20-2021 Triglyceride [Mass/Vol] 57 mg/dL 35-149 [facility] Comment on above: TRIG ATP III CLASSIF ICATION TRIG less than 150 mg/dL Normal TRIG 150-199 mg/dL Borderline high TRIG 200-500 mg/dL High TRIG greater than 500 mg/dL Very high Standard traceable to the Center for Disease Conrtrol and Prevention (CDC) test method. Complete Blood Counton 05-16 Erythrocyte distribution width (RBC) [Ratio] 14.4 % Normal 11.0-15.0 [facility] [employer] Comment on above: Performed By: #### C BC #### [facility] [address] [place], [place] [id number] Hematocrit (Bld) [Volume fraction] 44.4 % Normal 35.0-47.0 [facility] [employer] Comment on above: Performed By: #### C BC #### [facility] [address] [place], [place] [id number] Hemoglobin (Bld) [Mass/Vol] 14.1 g/dL Normal 11.6-15.5 [facility] [employer] Comment on above: Performed By: #### C BC #### [facility] [address] [place], [place] [id number] MCH (RBC) [Entitic mass] 28.3 pg Normal 27.0-33.0 [facility] Comment on above: Performed By: #### C BC #### [facility] [address] [place], [place] [id number] MCHC (RBC) [Mass/Vol] 31.8 g/dL Low 32.0-36.0 [facility] Comment on above: Performed By: #### C BC #### [facility] [address] [place], [place] [id number] MCV (RBC) [Entitic vol] 89 fL Normal 80-100 [facility] Comment on above: Performed By: #### C BC #### [facility] [address] [place], [place] [id number] Platelet mean volume (Bld) [Entitic vol] 10.40 fL Normal 7.50-12.50 [facility] Comment on above: Performed By: #### C BC #### [facility] [address] [place], [place] [id number] Platelets (Bld) [#/Vol] 555 10*3/uL High 140-400 [facility] Comment on above: Performed By: #### C BC #### [facility] [address] [place], [place] [id number] RBC (Bld) [#/Vol] 4.99 10*6/uL Normal 3.90-5.20 [facility] Comment on above: Performed By: #### C BC #### [facility] [address] [place], [place] [id number] RDW-SD 46.8 fL Normal 37.0-50.0 [facility] Comment on above: Performed By: #### C BC #### [facility] [address] [place], [place] [id number] WBC (Bld) [#/Vol] 6.7 10*3/uL Normal 3.8-11.0 [facility] Comment on above: Performed By: #### C BC #### [facility] [address] [place], [place] [id number] CNOVon 03-17-2021 CNOV Office Visit (CARDMN ) GLORIA ALLEN ([id number]) 1960 F Date Time Provider Department 03/17/21 [...] to seek emergency care. She wore a Graffiti event monitor for 12 days in January [...] bearing down or coughing Occur 3x/week Wore Graffiti event monitor for 12 days in 01/2021. [...] No sudden deaths, atrial fibrillation. 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 , 3 children, 1 grandchild. Lives in [place], [place] Habits: Tobacco: none. Alcohol: 1 drink [...] acid (RHIANNON (more content not included)... Normal [facility] 03-17-2021 CNPN Telephone (CARDMN) GLORIA ALLEN ([id number]) 1960 F Date Time Provider Department 03/17/21 NIKITA REYES During your visit today, we recorded the following information about you: Philly Nair 03/17/2021 4:06 PM Signed Outside medical records scanned into [employer] drive. Disk uploaded to [employer]: Echocardiogram 01/27/2021. Allergies As of Date: 03/17/2021 (Not on File) Date Reviewed: Never Reviewed Reason for Visit: Received Outside Medical Records [1224] Problem List As Of Date: 03/17/2021 (None) Encounter Status:Closed by PHILLY NAIR on 03/17/21 [facility] 12-31-2020 CNCO Letter Text [facility] CNPNon 12-30-2020 CNPN Telephone (REFPHY) GLORIA ALLEN ([id number]) 1960 F Date Time Provider Department 12/30/20 NO PCP (HISTORICAL) REFPHY During your visit today, we recorded the following information about you: Kyle Crowell 12/30/2020 9:12 AM Signed Patient: Gloria Allen Date of : 1960 Patient phone number: [phone] Referring Provider for the encounter: Zeus Lamas Requesting Provider: Nikita Reyes Reason for requesting visit (RFV/signs and symptoms/diagnosis): palpitations Person calling: via RP fax Return call to: self Medical Records/Insurance Card scanned into [employer]: No Comments: helder Boles 12/31/2020 10:34 AM Signed [employer]TI RP - Message left for patient to call back to schedule an appointment in EP? for Palpitations, requesting Dr. Reyes per RP referrals. Allergies As of Date: 12/30/2020 (Not on File) Date Reviewed: Never Reviewed Reason for Visit: External Referrals/resources [909] Problem List As Of Date: 12/30/2020 (None) Encounter Status:Closed by KYLE MUNOZ on 12/30/20 [facility] CNPNon 12-23-2020 CNPN Telephone (REFPHY) GLORIA ALLEN ([id number]) 1960 F Date Time Provider Department 12/23/20 NO ONE (HISTORICAL) REFPHY During your visit today, we recorded the following information about you: Alexandria Hernandez 12/23/2020 7:19 AM Signed Patient: Gloria Allen Date of : 1960 Patient phone number: [phone] Referring Provider for the encounter: Dr Zeus Lamas Requesting Provider: Dr Wesley Mallory - Cardiology Reason for requesting visit (RFV/signs and symptoms/diagnosis): Tachycardia, palipatations Person calling: caregiver: ASHLEY Return call to: self Medical Records/Insurance Card scanned into [employer]: Yes Comments: Additional records saved to [employer] Cheyenne Boles 12/23/2020 9:31 AM Signed [facility]TI [...] Status:Closed by ALEXANDRIA TERRY on 12/23/20 Normal [facility] Albumin [Mass/volume] in Ser um or PlasmaOrdered By: Rosa Romo on 12-16-2020 Albumin [Mass/Vol] 3.9 g/dL 2.9-4.4 [facility] Immunoglobulin light chains. kappa.free [Mass/volume] in SerumOrdered By: Rosa Romo on 12-16-2020 Immunoglobulin light chains.kappa.free (S) [Mass/Vol] 12.3 mg/L 3.3-19.4 [facility] Immunoglobulin light chains. kappa.free/Immunoglobulin light chains.lambda.free [MassOrdered By: Rosa Romo on 12-16-2020 Immunoglobulin light chains.kappa.free/Immu noglobulin light chains.lambda.free (S) [Mass ratio] 0.83 0.26-1.65 [facility] Comment on above: Performed at: [address] [id number] Lathe Hand: Osiel Combs PhD, Phone: [phone] Performed at: [address] [id number] Director: Osiel Combs PhD, Phone: [phone] Immunoglobulin light chains. lambda.free [Mass/volume] in Serum or PlasmaOrdered By: Rosa Romo on 12-16-2020 Immunoglobulin light chains.lambda.free [Mass/Vol] 14.8 mg/L 5.7-26.3 [facility] No Panel InformationOrdered By: Rosa Romo on 12-16-2020 25-Hydroxy Vitamin D Total 51.1 ng/mL 30-100 [facility] Comment on above: VITAMIN D STATUS [...] Electrophoresis M-Sonny Not observed g/dL Not Observed [facility] Protein Electrophoresis Note See comment . [facility] Comment on above: Protein electrophore sis scan will follow via computer, mail, or nurse plastics delivery. Performed at: [facility] [address] [id number] Lathe Hand: Osiel Combs PhD, Phone: [phone] Protein electrophore sis scan will follow via computer,mail, or nurse plastics delivery.Performed at: [facility] [address] [id number] Director: Osiel Combs PhD, Phone: [phone] Protein [Mass/volume] in Ser um or PlasmaOrdered By: Rosa Romo on 12-16-2020 Protein [Mass/Vol] 7.0 g/dL 6.0-8.5 [facility] Serum globulin measurement ( mass/volume)Ordered By: Rosa Romo on 12-16-2020 Globulin (S) [Mass/Vol] 3.1 g/dL 2.2-3.9 [facility] Serum or plasma albumin/glob ulin mass ratioOrdered By: Rosa Romo on 12-16-2020 Albumin/Globulin [Mass ratio] 1.3 {ratio} 0.7-1.7 [facility] Serum or plasma alpha 1 glob ulin measurement by electrophoresis (mass/volume)Ordered By: Rosa Romo on 12-16-2020 Alpha 1 globulin Elph [Mass/Vol] 0.2 g/dL 0.0-0.4 [facility] Serum or plasma alpha 2 glob ulin measurement by electrophoresis (mass/volume)Ordered By: Rosa Romo on 12-16-2020 Alpha 2 globulin Elph [Mass/Vol] 0.7 g/dL 0.4-1.0 [facility] Serum or plasma beta globuli n measurement by electrophoresis (mass/volume)Ordered By: Rosa Romo on 12-16-2020 Beta globulin Elph [Mass/Vol] 1.1 g/dL 0.7-1.3 [facility] Serum or plasma calcitriol m easurement (mass/volume)Ordered By: Rosa Romo on 12-16-2020 1,25-dihydroxyvitamin D3 [Mass/Vol] 60.1 pg/mL 19.9-79.3 [facility] Comment on above: Performed at: [facility] [address] [id number] Lathe Hand: Mitchell Glynn MD, Phone: [phone] Performed at: [facility] [address] [id number] Director: Mitchell Glynn MD, Phone: [phone] Serum or plasma gamma globul in measurement by electrophoresis (mass/volume)Ordered By: Rosa Romo on 12-16-2020 Gamma globulin Elph [Mass/Vol] 1.0 g/dL 0.4-1.8 [facility] Serum or plasma intact parat hyroid hormone measurement (mass/volume)Ordered By: Rosa Romo on 12-16-2020 Parathyrin.intact [Mass/Vol] 44.6 pg/mL 12- [facility] TSH DL <= 0.005 mIU/L QnOrde red By: Rosa Romo on 12-16-2020 TSH Qn 1.61 m[IU]/L 0.45-5.33 [facility] Thyroxine (T4) free [Mass/vo lume] in Serum or PlasmaOrdered By: Rosa Romo on 12-16-2020 Free T4 [Mass/Vol] 0.73 ng/dL 0.61-1.12 [facility] Activated partial thrombopla stin time (aPTT) in platelet poor plasma by coagulation aon 06-15-2020 aPTT Coag (PPP) [Time] 28.4 s 22.9-30.2 [facility] Laboratory - Coagulationon 0 06-15-2020 PT Coag (PPP) [Time] 11.2 s 9.1-12.0 [facility] No Panel Informationon 06-15 Coagulation Factor VIII Activity 116 % 56-140 [facility] Platelet poor plasma interna tional normalized ratio (INR) by coagulation assay (relaton 06-15-2020 INR Coag (PPP) [Relative time] 1.1 {INR} 0.9-1.2 [facility] Comment on above: INR Therapeutic Rang [...] multimers IB Nom (PPP) See comment . [facility] Comment on above: VWF multimer analysi [...] developed and its performance characteristics determined by [employer]. It has not been cleared or approved by the Food and Drug Administration. Performed at: [facility] [address] [id number] Lathe Hand: Sivakumar Mejia MD, Phone: [phone] VWF multimer analysi s demonstrates a normal pattern anddistribution of bands. This is the pattern of multimersthat occurs in normal individuals as well as in those withtype 1 von Willebrand disease (VWD), type 2M and type 2NVWD. Some acquired von Willebrand syndrome cases may yielda normal pattern as well.No additional results available for further interpretation.This test was developed and its performance characteristicsdetermined by [employer]. It has not been cleared or approvedby the Food and Drug Administration.Performed at: [facility] [address] [id number] Director: Sivakumar Mejia MD, Phone: [phone] Von Willebrand factor activi ty measurementon 06-15-2020 vWf ristocetin cofactor act actual/normal Platelet aggregation (PPP) [Relative time] 62 % 50-200 [facility] Comment on above: Performed at: [facility] [address] [address] [id number] Lathe Hand: Mitchell Glynn MD, Phone: [phone] Performed at: [facility] [address] [id number] Director: Mitchell Glynn MD, Phone: [phone] Von Willebrand factor antige n measurementon 06-15-2020 vWf Ag Qn (PPP) 86 % 50-200 [facility] Comment on above: This test was develo ped and its performance characteristics determined by [facility]. It has not been cleared or approved by the Food and Drug Administration. This test was develo ped and its performance characteristicsdetermined by [facility]. It has not been cleared orapproved by the Food and Drug Administration. No Panel Informationon 06-04 BCR/abl See comment [facility] Comment on above: See report. Scanned copy available in EMR. Calreticulin Mutation See comment [facility] Comment on above: See report. Scanned copy available in EMR.See report. Scanned copy available in EMR. --- 06/11/20799 --- Calr previously reported as: See report. Scanned copy available in EMR. See report. Scanned copy available in EMR.See report. Scanned copy available in EMR. --- 06/11/20799 ---Calr previously reported as: See report. Scanned copy available in EMR. JAK2 [id number] See comment [facility] Comment on above: See report. Scanned [...] in EMR. MPL Mutation Analysis See comment [facility] Comment on above: See report. Scanned copy available in EMR. C reactive protein [Mass/vol ume] in Serum or Plasmaon 05-31-2020 CRP [Mass/Vol] < 0.5 mg/dL 0.0-1.0 [facility] Laboratory - Hematology and Cell countson 05-31-2020 WBC (Bld) [#/Vol] 8.9 10*3/uL 4.5-11.0 [facility] Serum homogeneous pattern an tinuclear antibody (STEPHANIE) titeron 05-31-2020 Homogenous nuclear Ab pattern (S) [Titer] N/A [facility] Serum nuclear antibody titer on 05-31-2020 Nuclear Ab (S) [Titer] Negative . [facility] Comment on above: Negative <1:80 Borderline 1:80 Positive >1:80 Performed at: [employer] [address] [place], [place] [id number] Lathe Hand: Osiel Combs PhD, Phone: [phone] Negative <1:80 Borde rline 1:80 Positive >1:80Performed at: [employer] [address] [id number] Director: Osiel Combs PhD, Phone: [phone] Serum or plasma rheumatoid f actor measurement (units/volume)on 05-31-2020 Rheumatoid factor Qn [IU]/mL 0.0-13.9 [facility] Comment on above: Performed at: [facility] [place] [id number] Lathe Hand: Osiel Combs PhD, Phone: [phone] Performed at: [facility] [address] [id number] Director: Osiel Combs PhD, Phone: [phone] OVER READ - NCon 12-20-2017 OVER READ [...] extra arterial structures are otherwise unremarkable. Normal [facility] Vital Signs Date Time Vital Sign Value Performing Clinician Faci lity 03-21-2023 11:110400 Body temperature 97.8 [degF] DO Zeus Matik Work Phone: [facility] 03-21-2023 11:11040 Body weight 74.38 kg DO Zeus Matik Work Phone: [facility] 03-21-2023 11:11-0400 Diastolic blood pressure 77 mm[Hg] DO Zeus Cristinachak Work Phone: [facility] 03-21-2023 11:11-0400 Heart rate 64 /min DO Zeus Cristinachak Work Phone: [facility] 03-21-2023 11:11-0400 Respiratory rate 16 /min DO Zeus Cristinachak Work Phone: [facility] 03-21-2023 11:11-0400 SaO2% (BldA) [Mass fraction] 98 % DO Zeus Cristinachak Work Phone: [facility] 03-21-2023 11:11-0400 Systolic blood pressure 132 mm[Hg] DO Zeus Vaschak Work Phone: [facility] 03-24-2022 11:17-0400 Body temperature 97.8 [degF] DO Zeus Cristinachak Work Phone: [facility] 03-24-2022 11:17-0400 Body weight 70.76 kg DO Zeus Cristinachak Work Phone: [facility] 03-24-2022 11:17-0400 Diastolic blood pressure 81 mm[Hg] DO Zeus Vaschak Work Phone: [facility] 03-24-2022 11:17-0400 Heart rate 58 /min DO Zeus Vaschak Work Phone: [facility] 03-24-2022 11:17-0400 Respiratory rate 16 /min DO Zeus Vaschak Work Phone: [facility] 03-24-2022 11:17-0400 SaO2% (BldA) [Mass fraction] 100 % DO Zeus Vaschak Work Phone: [facility] 03-24-2022 11:17-0400 Systolic blood pressure 133 mm[Hg] DO Zeus Vaschak Work Phone: [facility] 12-23-2021 14:43-0400 Body temperature 97.8 [degF] DO Zeus Vaschak Work Phone: [facility] 12-23-2021 14:43-0400 Body weight 69.85 kg DO Zeus Vaschak Work Phone: [facility] 12-23-2021 14:43-0400 Diastolic blood pressure 75 mm[Hg] DO Zeus Vaschak Work Phone: [facility] 12-23-2021 14:43-0400 Heart rate 62 /min DO Zeus Vaschak Work Phone: [facility] 12-23-2021 14:43-0400 Respiratory rate 16 /min DO Zeus Vaschak Work Phone: [facility] 12-23-2021 14:43-0400 SaO2% (BldA) [Mass fraction] 99 % DO Zeus Vaschak Work Phone: [facility] 12-23-2021 14:43-0400 Systolic blood pressure 126 mm[Hg] DO Zeus Vaschak Work Phone: [facility] 05-31-2020 13:09-0500 Body height 172.72 cm DO Zeus Lamas Work Phone: [facility] Encounters Encounter Date Encounter Type Care Provider Facility Start: 09-12-2023 ambulatory Rosa Demetrius Facility:[facility] Start: 09-11-2023 End: 09-11-2023 ambulatory Mckenzie Perkins Facility:[facility] Start: 09-11-2023 End: 09-11-2023 ambulatory DO Zeus Lamas Work Phone: [facility] Work Phone: Start: 09-11-2023 End: 09-11-2023 Patient encounter procedure DO Zeus Thornek Work Phone: [facility] Work Phone: Start: 06-05-2023 End: 06-05-2023 ambulatory MCKENZIE PERKINS Not Available Start: 03-21-2023 End: 03-21-2023 ambulatory DO Zeus Lamas Work Phone: [facility] Work Phone: Start: 03-21-2023 End: 03-21-2023 Registered Recurring DO Zeus Lamas Work Phone: [facility] Work Phone: Start: 03-19-2023 End: 03-19-2023 ambulatory Zeus Lamas Facility:[facility] Start: 03-19-2023 Encounter for genera l adult medical examination without abnormal findings Zeus Lamas [facility] Start: 03-19-2023 Registered Recurring DO Zeus Matik Work Phone: [facility] Work Phone: Start: 03-19-2023 End: 03-19-2023 ambulatory DO Zeus Matik Work Phone: [facility] Work Phone: Start: 03-19-2023 End: 03-19-2023 Patient encounter procedure DO Zeus Vaschak Work Phone: [facility] [place] Work Phone: Start: 09-08-2022 End: 09-08-2022 ambulatory DO Zeus Lamas Work Phone: [facility] Work Phone: Start: 09-08-2022 End: 09-08-2022 Patient encounter procedure DO Zeus Lamas Work Phone: [facility] Work Phone: Start: 08-31-2022 End: 08-31-2022 ambulatory DO Zeus Lamas Work Phone: [facility] Work Phone: Start: 08-31-2022 End: 08-31-2022 Patient encounter procedure DO Zeus Lamas Work Phone: [facility] Work Phone: Start: 03-24-2022 End: 03-24-2022 ambulatory DO Zeus Lamas Work Phone: [facility] Work Phone: Start: 03-24-2022 End: 03-24-2022 Registered Recurring DO Zeus Lamas Work Phone: [facility] Start: 12-23-2021 End: 12-23-2021 Registered Recurring DO Zeus Lamas Work Phone: [facility] Start: 12-20-2021 End: 12-20-2021 Patient encounter procedure DO Zeus Lamas Work Phone: [facility] [place] Start: 12-20-2017 Patient encounter ZEUS LAMAS Fac [...] Detail Author Start: 12-23-2021 Registered Recurring Thrombocytosis [facility] Start: 09-28-2021 [facility] Start: 09-21-2021 [facility] Start: 08-19-2021 [facility] Comprehensive metabo lic 1999 panel - Serum or Plasma [facility] Work Phone: Comprehensive metabo lic 1999 panel - Serum or Plasma [facility] Comprehensive metabo lic 1999 panel - Serum or Plasma [facility] Payers Date Payer Category Payer Self-pay [id number] 2020 Unknown [id number] 2020 Unknown [id number] 1960 Unknown [id number] [id number] [id number] Unknown TIFFANY TENORIO Unknown [id number] 2.16.8 [id number] Unknown [id number] 2.16.8 [id number] Unknown [id number] 2.16.8 [id number] Social History Date Type Detail Facility Start: 12-23-2021 End: 03-24-2022 Tobacco smoking status NHIS Never smoked tobacco (finding) [facility] Start: 1960 Sex Assigned At Female F [facility] Clinical Notes 05-31-2020 to 03-24-2022 Note Date & Type Note Facility 03-24-2022 Progress note Note Date/Time March 24, 2022 11:23[facility] at [address] [address] Hem/Onc Follow Up Note - OP Signed Patient: Gloria Allen MR#: [id number] : 1960 Acct:[id number] Age/Sex: 61 / F Type: REG RCR [...] iron stores in one month (f/u with FORMING PROCESS LINE WORKER). If platelets < 450,000 at that time, [...] 03/24/22 @ 16:09 by Rosa Romo MD) Martin teeth removed - Family History Family History: [...] % (Auto) 66.6, Lymph % (Auto) 24.9, [place] % (Auto) 5.2, Eos % (Auto) 2.4, Baso % (Auto) 0.9, Neut # (Auto) 5.3, Lymph # (Auto) 2.0, [place] # (Auto) 0.4, Eos # (Auto) 0.2, [...] 4-6 weeks to review iron studies with FORMING PROCESS LINE WORKER, 4 month f/u CBC and determine cytoreduction [...] for coordination of care (as documented) and [id number] counseling of patient and/or family. Dictated By: Rosa Romo MD DD/ 21 Signed By: <Electronically signed by MD Rosa Romo> 03/24/22 1615 [facility] Work Phone: 1(582) 734-418107-30-2022 Progress note Author Rosa Romo [facility] December 24, 2021 4:39pm Note Date/Time December 23, 2021 2:49 pm [facility] [place] [address] Hem/Onc Follow Up Note - OP Signed Patient: Gloria Allen MR#: [id number] : 1960 Acct:[id number] Age/Sex: 61 / F Type: REG RCR [...] iron stores in one month (f/u with FORMING PROCESS LINE WORKER). If platelets < 450,000 at that time, [...] Negative for environmental allergies and food allergies. [facility] - History Attestation statement: The following information was validated with the patient. Source: Old Records Reviewed - Medical History Medical History: Medical History (Last Reviewed 12/24/21 @ 16:34 by Rosa Romo MD) delivery delivered - Surgical History Surgical History: Surgical History (Last Reviewed 12/24/21 @ 16:34 by Rosa Romo MD) Martin teeth removed - Family History Family History: [...] % (Auto) 63.2, Lymph % (Auto) 26.9, [place] % (Auto) 6.3, Eos % (Auto) 2.9, Baso % (Auto) 0.7, Neut # (Auto) 4.0, Lymph # (Auto) 1.7, [place] # (Auto) 0.4, Eos # (Auto) 0.2, [...] 4-6 weeks to review iron studies with FORMING PROCESS LINE WORKER, 4 month f/u CBC and determine cytoreduction [...] for coordination of care (as documented) and [id number] counseling of patient and/or family. Dictated By: Rosa Romo MD DD/ 1448 Signed By: <Electronically signed by MD Rosa Romo> 12/24/21 6348 [facility] Work Phone: 1(599) 829-994204-23-2022 Progress note Author Rosa Romo [facility] September 17, 2021 6:26pm Note Date/Time September 16, 2021 12: 45pm [facility] [place] at [address] [address] Hem/Onc Follow Up Note - OP Signed Patient: Gloria Allen MR#: [id number] : 1960 Acct:[id number] Age/Sex: 61 / F Type: REG RCR [...] iron stores in one month (f/u with FORMING PROCESS LINE WORKER). If platelets < 450,000 at that time, [...] Negative for environmental allergies and food allergies. [facility] - History Attestation statement: The following information was validated with the patient. Source: Old Records Reviewed - Medical History Medical History: Medical History (Last Reviewed 09/17/21 @ 18:19 by Rosa Romo MD) delivery delivered - Surgical History Surgical History: Surgical History (Last Reviewed 09/17/21 @ 18:19 by Rosa Romo MD) Martin teeth removed - Family History Family History: [...] 4-6 weeks to review iron studies with FORMING PROCESS LINE WORKER, 4 month f/u CBC and determine cytoreduction [...] for coordination of care (as documented) and [id number] counseling of patient and/or family. Dictated By: Rosa Romo MD DD/ 1245 Signed By: <Electronically signed by MD Rosa Romo> 09/17/21 6357 [facility] Work Phone: 1(561) 815-497603-25-2022 Procedure [facility]03-25[facility]12-23-2021 Progress note Author Rosa Romo [facility] May 19, 2021 7:48pm Note Date/Time May 19, 2021 3:41pm [facility] at [address] [address] Hem/Onc Follow Up Note - OP Signed Patient: Gloria Allen MR#: [id number] : 1960 Acct:[id number] Age/Sex: 61 / F Type: REG RCR [...] Negative for environmental allergies and food allergies. [facility] - History Attestation statement: The following information was validated with the patient. Source: Old Records Reviewed - Medical History Medical History: Medical History (Last Reviewed 05/19/21 @ 15:43 by Rosa Romo MD) delivery delivered - Surgical History Surgical History: Surgical History (Last Reviewed 05/19/21 @ 15:43 by Rosa Romo MD) Martin teeth removed - Family History Family History: [...] 08:50 12/16/20 08:50 Outside Labs: Labs at [facility] laboratory: 05/16/2021: White blood cells [...] noted on monitoring. Transcribed By: ELIZABETH 03/17/21 2444 Dictated By: Zeus Lamas DO 03/16/21 1959 Assessment and Plan - TNM Staging Staging: [...] for coordination of care (as documented) and irxf-rw-zutb counseling of patient and/or family. Dictated By: Rosa Romo MD DD/ 1534 Signed By: <Electronically signed by MD Rosa Romo> 05/19/211947 [facility] Work Phone: 1(930) 165-986810-21-2021 NoteHNO ID: [id number] Author: Nikita Reyes MD Service: ? Author [...] to seek emergency care. She wore a Graffiti event monitor for 12 days in January [...] bearing down or coughing Occur 3x/week Wore Graffiti event monitor for 12 days in 01/2021. [...] No sudden deaths, atrial fibrillation. 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 , 3 children, 1 grandchild. Lives in [place], [place] Habits: Tobacco: none. Alcohol: 1 drink [...] mg tablet T (more content not included)... [facility]08-03-2021 Progress note Author Rosa Romo [facility] December 28, 2020 7:12am Note Date/Time December 27, 2020 3:4 6pm [facility] [place] [address] Hem/Onc Follow Up Note - OP Signed Patient: Gloria Allen MR#: [id number] : 1960 Acct:[id number] Age/Sex: 60 / F Type: REG RCR [...] 12/28/20 @ 07:08 by Rosa Romo MD) Martin teeth removed - Family History Family History: [...] for coordination of care (as documented) and fgfg-yr-qvjt counseling of patient and/or family. Dictated By: Rosa Romo MD DD/ 1545 Signed By: <Electronically signed by MD Rosa Romo> 12/28/20 0712 [facility] Work Phone: 1(436) 322-323704-20-2021 Progress note Author Rosa Romo [facility] September 14, 2020 7:40pm Note Date/Time September 13, 2020 4:0 3pm [facility] [place] [address] Hem/Onc Follow Up Note - OP Signed Patient: Gloria Allen MR#: [id number] : 1960 Acct:[id number] Age/Sex: 60 / F Type: REG RCR [...] Negative for environmental allergies and food allergies. [facility] - History Attestation statement: The following information was validated with the patient. Source: Old Records Reviewed - Medical History Medical History: Medical History (Last Reviewed 09/14/20 @ 19:34 by Rosa Romo MD) delivery delivered - Surgical History Surgical History: Surgical History (Last Reviewed 09/14/20 @ 19:34 by Rosa Romo MD) Martin teeth removed - Family History Family History: [...] % (Auto) 70.2, Lymph % (Auto) 19.6, [place] % (Auto) 7.3, Eos % (Auto) 2.3, Baso % (Auto) 0.6, Neut # (Auto) 6.0, Lymph # (Auto) 1.7, [place] # (Auto) 0.6, Eos # (Auto) 0.2, [...] for coordination of care (as documented) and plbf-pv-miiw counseling of patient and/or family. Dictated By: Rosa Romo MD DD/ 1956 Signed By: <Electronically signed by MD Rosa Romo> 09/14/201939 [facility] Work Phone: 1(981) 514-240901-18-2021 Progress note Author Rosa Romo [facility] June 14, 2020 4:10pm Note Date/Time June 14, 2020 3 :26pm [facility] at [place] [id number] Hem/Onc Follow Up Note - OP Signed Patient: Gloria Allen MR#: [id number] : 1960 Acct:[id number] Age/Sex: 60 / F Type: REG RCR [...] 06/14/20 @ 15:59 by Rosa Romo MD) Martin teeth removed - Family History Family History: [...] for coordination of care (as documented) and uubv-fp-wnzr counseling of patient and/or family. Dictated By: Rosa Romo MD DD/ 1525 Signed By: <Electronically signed by MD Rosa Romo> 06/14/20 1610 [facility] Work Phone: 1([phone] 498-697801-04-2021 Consult note Author Rosa Romo [facility] May 31, 2020 8:56pm Note Date/Time May 31, 2020 1: 29pm [facility] at [place] [id number] Hem/Onc Consult Note - OP Signed Patient: Gloria Allen MR#: [id number] : 1960 Acct:[id number] Age/Sex: 60 / F Type: REG RCR [...] address epigastric pain with you in followup. [facility] - Medical History Medical History: Medical History (Last Reviewed 05/31/20 @ 20:40 by Rosa Romo MD) delivery delivered - Surgical History Surgical History: Surgical History (Last Reviewed 05/31/20 @ 20:40 by Rosa Romo MD) Martin teeth removed - Family History Family History: [...] for coordination of care (as documented) and tsfr-xz-lmwg counseling of patient and/or family. Dictated By: Rosa Romo MD DD/ 1329 Signed By: <Electronically signed by MD Rosa Romo> 05/31/202055 [facility] Work Phone: Evaluation note* Diagnosis Onset Date Resolution Status Thrombocytosis acute Epigastric pain chronic Essential thrombocytosis chr onic Iron deficiency anemia chron ic [facility] Work Phone: Evaluation noteNo assessment information available [facility] Work Phone: Evaluation note* Diagnosis Onset Date Resolution Status Thrombocytosis acute Epigastric pain chronic Essential thrombocytosis chr onic Iron deficiency anemia resol chelly [facility] Work Phone: Progress note Author Rosa Romo [facility] December 24, 2021 4:39pm Note Date/Time December 23, 2021 2:49 pm [facility] [place] at [address] [address] Hem/Onc Follow Up Note - OP Signed Patient: Gloria Allen MR#: [id number] : 1960 Acct:[id number] Age/Sex: 61 / F Type: REG RCR [...] iron stores in one month (f/u with [employer] WORK[employer]). If platelets < 450,000 at that time, [...] Negative for environmental allergies and food allergies. [facility] - History Attestation statement: The following information was validated with the patient. Source: Old Records Reviewed - Medical History Medical History: Medical History (Last Reviewed 12/24/21 @ 16:34 by Rosa Romo MD) delivery delivered - Surgical History Surgical History: Surgical History (Last Reviewed 12/24/21 @ 16:34 by Rosa Romo MD) Martin teeth removed - Family History Family History: [...] % (Auto) 63.2, Lymph % (Auto) 26.9, [place] % (Auto) 6.3, Eos % (Auto) 2.9, Baso % (Auto) 0.7, Neut # (Auto) 4.0, Lymph # (Auto) 1.7, [place] # (Auto) 0.4, Eos # (Auto) 0.2, [...] 4-6 weeks to review iron studies with [employer]MING [employer] WORKER, 4 month f/u CBC and determine cytoreduction [...] for coordination of care (as documented) and gqbd-qr-mwwv counseling of patient and/or family. Dictated By: Rosa Romo MD DD/ 1448 Signed By: <Electronically signed by MD Rosa Romo> 12/24/21 0891 [facility] Work Phone: Progress note Author Rosa Romo [facility] March 24, 2022 4:15pm Note Date/Time March 24, 2022 1 1:23am [facility] [place] [address] Hem/Onc Follow Up Note - OP Signed Patient: Gloria Allen MR#: [id number] : 1960 Acct:[id number] Age/Sex: 61 / F Type: REG RCR [...] iron stores in one month (f/u with [employer] WORKER). If platelets < 450,000 at that time, [...] Negative for environmental allergies and food allergies. [facility] - History Attestation statement: The following information was validated with the patient. Source: Old Records Reviewed - Medical History Medical History: Medical History (Last Reviewed 03/24/22 @ 16:09 by Rosa Romo MD) delivery delivered - Surgical History Surgical History: Surgical History (Last Reviewed 03/24/22 @ 16:09 by Rosa Romo MD) Martin teeth removed - Family History Family History: [...] % (Auto) 66.6, Lymph % (Auto) 24.9, [place] % (Auto) 5.2, Eos % (Auto) 2.4, Baso % (Auto) 0.9, Neut # (Auto) 5.3, Lymph # (Auto) 2.0, [place] # (Auto) 0.4, Eos # (Auto) 0.2, [...] 4-6 weeks to review iron studies with FORMING [employer] LINE WORKER, 4 month f/u CBC and determine cytoreduction [...] for coordination of care (as documented) and axef-xr-ouew counseling of patient and/or family. Dictated By: Rosa Romo MD DD/ 1122 Signed By: <Electronically signed by MD Rosa Romo> 03/24/22 1611 [facility] Work Phone: Summary Purpose Family History [...] section and content) DATE CREATED AUTHOR 12/21/2017 [facility] DATE CREATED AUTHOR AUTHOR'S ORGANIZ ATION 05/16/2021 [facility] DATE CREATED AUTHOR AUTHOR'S ORGANIZ ATION 06/30/2021 [facility] DATE CREATED AUTHOR AUTHOR'S ORGANIZ ATION 06/06/2023 [facility] DATE CREATED AUTHOR AUTHOR'S ORGANIZ ATION 09/14/2023 [facility] Care Teams (unrecognized sec tion [...] Team Status: Inactive Member Role Status Dates Zesu Lamas DO Primary Care Provider Active Mckenzie [...] BE BASED ON THE PRIMARY CLINICAL RECORDS. [facility] [employer] [facility]. provides no warranty or guarantee of the accuracy or completeness of information in this document.
== END 2023-11-07 09:05 | disposition home or self-care (01) ==
LOC: VC 09:04
PROVIDERS: PCP Radiology Diagnostic Radiology; Visit Provider Radiology Diagnostic Radiology
DX: I83.813 Varicose veins of bilateral lower extremities with pain (principal)
CPT/HCPCS: 36466

== ENCOUNTER 2023-11-13 13:16 | Outpatient (OUT) | payer OTHER, SELFPAY ==
--- NOTE | 2023-11-13 13:39 | VEIN_ITS ---
Patient Name: JONA ALLEN MR#: [id number] : 1960 Exam Date: 11/13/2023 Ordering Doctor: DR HEMANT MCHUGH M.D. RADIOLOGY REPORT PROCEDURE: [facility] - OFFICE VISIT FOLLOW UP [facility]PAR[facility]. PROGRESS NOTES: The patient reports improvement in leg symptoms. There has been interval reduction in varicosities. The patient has followed our recommendations to walk 20-30 minutes once or twice per day since the procedure. Physical exam demonstrates decrease in varicosities of the leg. Persistent varicosities are identified along the left leg. Review of the ultrasound performed the same day demonstrates occlusive thrombus extending throughout the treated vein(s), see separate report, consistent with a successful ablation. No thrombus extending into or beyond the saphenofemoral junction. The patient expressed a desire to proceed with treatment of remaining incompetent varicosities. The patient was informed that treatment was a process and would require 1-2 procedures/sessions. [facility]: 1. Successful ablation of the left leg incompetent branch saphenous vein(s). 2. Persistent right leg varicose veins and lower extremity symptoms. PLAN: 1. Microfoam chemical ablation of right leg incompetent branch saphenous varicosities. Nurse notes, history and physical were reviewed and confirmed, see attached forms. The nurse was present throughout the physical exam and consultation Dictated by: Osmany Warren M.D. on 11/13/2023 at 14:57 Approved by: Osmany Warren M.D. on 11/13/2023 at 14:59
--- NOTE | 2023-11-13 13:39 | VEIN_ITS ---
Patient Name: JONA ALLEN MR#: [id number] : 1960 Exam Date: 11/13/2023 Ordering Doctor: DR HEMANT MCHUGH M.D. RADIOLOGY REPORT PROCEDURE: VC EXT VENOUS LT LIMITED COMPARISON: VC EXT VENOUS LT LIMITED, 10/10/2023. INDICATIONS: I80.02 Phlebitis of superficial veins of lt lower extremity TECHNIQUE: Lower extremity lopez scale and Duplex Doppler evaluation of the deep venous system from the inguinal ligament through the calf veins. FINDINGS: REGION: Left lower extremity. THROMBI: Negative for DVT. Varithena induced thrombus visualized at mid/med calf, medial ankle, and dist/med calf. COMPRESSIBILITY: Non-compressible segments corresponding to thrombus FLOW: Areas of no flow corresponding to thrombus OTHER: No patent varicose veins. CONCLUSION: 1. Successful post ablation occlusion of left leg treated branch saphenous varicosities. Dictated by: Osmany Warren M.D. on 11/13/2023 at 14:55 Approved by: Osmany Warren M.D. on 11/13/2023 at 14:57
--- OUTSIDE RECORDS SUMMARY | 2023-11-13 13:56 | XMS_ITS | CCD ---
Author Organization [facility] Care Team Providers Care System Engineer Name Role Phone ZEUS LAMAS Unavailable Unavailable ZEUS LAMAS Unavailable Unavailable ZEUS LAMAS Unavailable Unavailable DO Zeus Lamas Primary Care Provider DO Zeus Lamas Attending Provider [phone] DO Zeus Lamas Referring Provider [phone] MD Rosa Romo Attending Provider DO Zeus Lamas Primary Care Provider DO Zeus Lamas Referring Provider [phone] MD Rosa Romo Attending Provider DO Zeus Lamas Primary Care Provider DO Mckenzie Perkins Attending Provider DO Zeus Lamas Primary Care Provider DO Zeus Lamas Attending Provider DO Zeus Lamas Referring Provider MD Rosa Romo Attending Provider [phone] DO Zeus Lamas Referring Provider [phone] MD Rosa Romo Attending Provider [phone] MCKENZIE PERKINS Attending Unavailable DO Zeus [...] (Bld) [#/Vol] 0.1 10*3/uL Normal 0.0-0.2 [facility] Comment on above: Result Comment: PERF ORMED BY: [place] [address] PATHOLOGIST SHOE COVERER MIGUEL LARSEN M.D. Performed By: #### C BC, CMP #### [address] Basophils/100 WBC (Bld) 1.0 % Normal . [facility] Comment on above: Performed By: #### C BC, CMP #### [address] Eosinophils (Bld) [#/Vol] 0.3 10*3/uL Normal 0.0-0.45 [facility] Comment on above: Performed By: #### C BC, CMP #### [place] [address] Eosinophils/100 WBC (Bld) 4.8 % Normal . [facility] Comment on above: Performed By: #### C BC, CMP #### [address] Erythrocyte distribution width (RBC) [Ratio] 16.0 % High 11.9-15.3 [facility] Comment on above: Performed By: #### C BC, CMP #### [address] Hematocrit (Bld) [Volume fraction] 42.6 % Normal 34.0-46.4 [facility] Comment on above: Performed By: #### C BC, CMP #### [address] Hemoglobin (Bld) [Mass/Vol] 13.8 g/dL Normal 11.8-15.4 [facility] Comment on above: Performed By: #### C BC, CMP #### [address] Lymphocytes (Bld) [#/Vol] 2.3 10*3/uL Normal 1.00-4.8 [facility] Comment on above: Performed By: #### C BC, CMP #### [address] Lymphocytes/100 WBC (Bld) 32.7 % Normal . [facility] Comment on above: Performed By: #### C BC, CMP #### [address] MCH (RBC) [Entitic mass] 28.9 pg Normal 24.7-34.3 [facility] Comment on above: Performed By: #### C BC, CMP #### [address] MCV (RBC) [Entitic vol] 89.0 fL Normal 80-100 [facility] Comment on above: Performed By: #### C BC, CMP #### [address] Mean Corpuscular HGB Conc 32.5 g/dL Normal 32.0-35.0 [facility] Comment on above: Performed By: #### C BC, CMP #### [address] Monocytes (Bld) [#/Vol] 0.5 10*3/uL Normal 0.0-0.8 [facility] Comment on above: Performed By: #### C BC, CMP #### [address] Monocytes/100 WBC (Bld) 7.2 % Normal . [facility] Comment on above: Performed By: #### C BC, CMP #### [address] Neutrophils (Bld) [#/Vol] 3.9 10*3/uL Normal 1.8-7.7 [facility] Comment on above: Performed By: #### C BC, CMP #### [address] Neutrophils/100 WBC (Bld) 54.3 % Normal . [facility] Comment on above: Performed By: #### C BC, CMP #### [address] NRBC% 0.0 /100{WBC} Normal 0-0.5 [facility] Comment on above: Performed By: #### C BC, CMP #### [address] Platelet mean volume (Bld) [Entitic vol] 8.2 fL Normal 6.3-10.7 [facility] Comment on above: Performed By: #### C BC, CMP #### [address] Platelets (Bld) [#/Vol] 599 10*3/uL High 150-450 [facility] Comment on above: Performed By: #### C BC, CMP #### [address] RBC (Bld) [#/Vol] 4.78 10*6/uL Normal 3.60-5.00 [facility] Comment on above: Performed By: #### C BC, CMP #### [address] WBC (Bld) [#/Vol] 7.1 10*3/uL Normal 3.8-11.6 [facility] Comment on above: Performed By: #### C BC, CMP #### [address] Comprehensive Metabolic Pane douglas 09-12-2023 Albumin [Mass/Vol] 4.8 g/dL Normal 3.5-5.7 [facility] Comment on above: Performed By: #### C BC, CMP #### [address] Albumin/Globulin [Mass ratio] 2.2 {ratio} Normal [facility] Comment on above: Performed By: #### C BC, CMP #### [address] ALP [Catalytic activity/Vol] 56 U/L Normal 34-104 [facility] Comment on above: Performed By: #### C BC, CMP #### [address] ALT [Catalytic activity/Vol] 15 U/L Normal 7-52 [facility] Comment on above: Performed By: #### C BC, CMP #### [address] Anion gap [Moles/Vol] 9.3 mmol/L Normal 6.0-15.0 [facility] Comment on above: Performed By: #### C BC, CMP #### [address] AST [Catalytic activity/Vol] 21 U/L Normal 13-39 [facility] Comment on above: Performed By: #### C BC, CMP #### [address] Bilirubin [Mass/Vol] 1.2 mg/dL High 0.3-1.0 [facility] Comment on above: Performed By: #### C BC, CMP #### [address] Calcium [Mass/Vol] 10.3 mg/dL Normal 8.6-10.3 [facility] Comment on above: Performed By: #### C BC, CMP #### [address] Chloride [Moles/Vol] 103 mmol/L Normal 98-107 [facility] Comment on above: Performed By: #### C BC, CMP #### [address] CO2 [Moles/Vol] 32.3 mmol/L High 21.0-31.0 [facility] Comment on above: Performed By: #### C BC, CMP #### [address] Creatinine [Mass/Vol] 0.82 mg/dL Normal 0.60-1.20 [facility] Comment on above: Performed By: #### C BC, CMP #### [address] Creatinine Clr Calc Pharmacy 70.84 Normal [facility] Comment on above: Result Comment: PERF ORMED BY: [place] [address] PATHOLOGIST SHOE COVERER MIGUEL LARSEN M.D. Performed By: #### C BC, CMP #### [address] GFR/1.73 sq M.predicted MDRD (S/P/Bld) [Vol rate/Area] mL/min/{1.73_m2} Normal [facility] Comment on above: Performed By: #### C BC, CMP #### [address] Globulin (S) [Mass/Vol] 2.2 g/dL Normal [facility] Comment on above: Performed By: #### C BC, CMP #### [address] [place] [address] [place] Glucose [Mass/Vol] 77 mg/dL Normal 70-100 [facility] Comment on above: Result Comment: [facility] Glucose Reference Range is dependent on time and content of last meal. Glucose of more than 200 mg/dL in a nonstressed, ambulatory subject supports the diagnosis of Diabetes Mellitus. ADA recommended reference range Performed By: #### C BC, CMP #### [facility] [address] Potassium [Moles/Vol] 4.6 mmol/L Normal 3.5-5.1 [facility] Comment on above: Performed By: #### C BC, CMP #### [facility] [address] Protein [Mass/Vol] 7.0 g/dL Normal 6.4-8.9 [facility] Comment on above: Performed By: #### C BC, CMP #### [address] Sodium [Moles/Vol] 140 mmol/L Normal 136-145 [facility] Comment on above: Performed By: #### C BC, CMP #### [address] Urea nitrogen [Mass/Vol] 18 mg/dL Normal 7-25 [facility] Comment on above: Performed By: #### C BC, CMP #### [address] MM screening mammo BI w/CADo n 09-11-2023 MM screening mammo BI w/CAD [facility] [place] [address] [place] [address] Mammography Report Signed Patient: Gloria Allen MR#: [id number] [birth year] : 1960 Acct:[id number] Age/Sex: 63 / F ADM Date: 09/11/23 Loc: [place] Room: Type: [facility] Attending Dr: Mckenzie Perkins DO Copies to: [...] Diana Matos M.D.09/11/2023 1:30 PM Dictation Location: [facility] Transcribed By: CHRISTOFER 09/11/23 1330 Dictated By: Diana Matos MD 09/11/23 1327 Signed By: 09/11/23 1330 Normal [facility] Alanine aminotransferase [En zymatic activity/volume] in Serum or PlasmaOrdered By: Rosa Romo on 03-19-2023 ALT [Catalytic activity/Vol] 13 U/L 7-[address] [facility] Albumin [Mass/volume] in Ser um or Plasma by Bromocresol green (BCG) dye binding methoOrdered By: Rosa Romo on 03-19-2023 Albumin BCG dye [Mass/Vol] 4.5 g/dL 3.5-5.[address] [facility] Alkaline phosphatase [Enzyma tic activity/volume] in Serum or PlasmaOrdered By: Rosa Romo on 03-19-2023 ALP [Catalytic activity/Vol] 56 U/L 34-[address] [facility] Aspartate aminotransferase [ Enzymatic activity/volume] in Serum or PlasmaOrdered By: Rosa Romo on 03-19-2023 AST [Catalytic activity/Vol] 19 U/L 13-[address] [facility] Basophils Auto (Bld) [#/Vol] Ordered By: Rosa Romo on 03-19-2023 Basophils (Bld) [#/Vol] 0.1 10*3/uL 0.0-0.[address] [facility] Basophils/100 WBC Auto (Bld) Ordered By: Rosa Romo on 03-19-2023 Basophils/100 WBC (Bld) 0.9 % . [facility] Bilirubin.total [Mass/volume ] in Serum or PlasmaOrdered By: Rosa Romo on 03-19-2023 Bilirubin [Mass/Vol] 1.4 mg/dL 0.3-1.0 [facility] Comment on above: Samples from patient s who have taken Naproxen have shown spurious elevation in Total Bilirubin levels. A metabolite of Naproxen, O-desmethylnaproxen, has been shown to interfere with the Pop-Adeel method for measuring Total Bilirubin. Calcium [Mass/volume] in Ser um or PlasmaOrdered By: Rosa Romo on 03-19-2023 Calcium [Mass/Vol] 9.7 mg/dL 8.6-10.3 [facility] Carbon dioxide, total [Moles /volume] in Serum or PlasmaOrdered By: Rosa Romo on 03-19-2023 CO2 [Moles/Vol] 31.9 mmol/L 21.0-31.0 [facility] Chloride [Moles/volume] in S anne or PlasmaOrdered By: Rosa Romo on 03-19-2023 Chloride [Moles/Vol] 104 mmol/L 98-107 [facility] Cholesterol [Mass/volume] in Serum or PlasmaOrdered By: Zeus Lamas on 03-19-2023 Cholesterol [Mass/Vol] 179 mg/dL 140-200 [facility] Comment on above: Chol less than 200 m g/dl low riskChol 201-239 mg/dl borderline riskChol 240 mg/dl and greater high risk Cholesterol in LDL Calc [Mas s/Vol]Ordered By: Zeus Lamas on 03-19-2023 Cholesterol in LDL [Mass/Vol] 123 mg/dL 0-[address] [facility] Comment on above: LDL ATP III CLASSIFI CATIONLDL less than 100 mg/dL OptimalLDL 100-129 mg/dL Near or above optimalLDL 130-159 mg/dL Borderline highLDL 160-189 mg/dL HighLDL greater than 189 mg/dL Very high Cholesterol in VLDL Calc [Ma ss/Vol]Ordered By: Zeus Lamas on 03-19-2023 Cholesterol in VLDL [Mass/Vol] 12 mg/dL [facility] Comprehensive Metabolic Pane douglas 03-19-2023 Albumin [Mass/Vol] 4.5 g/dL Normal 3.5-5.7 [facility] Comment on above: Order Comment: PT FA STED 12 HOURS Performed By: #### S CAN CBC, CMP #### [facility] [address] Albumin/Globulin [Mass ratio] 2.0 {ratio} Normal [facility] Comment on above: Order Comment: PT FA STED 12 HOURS Performed By: #### S CAN CBC, CMP #### [address] ALP [Catalytic activity/Vol] 56 U/L Normal 34-104 [facility] Comment on above: Order Comment: PT FA STED 12 HOURS Performed By: #### S CAN CBC, CMP #### [address] ALT [Catalytic activity/Vol] 13 U/L Normal 7-52 [facility] Comment on above: Order Comment: PT FA STED 12 HOURS Performed By: #### S CAN CBC, CMP #### [facility] [address] [place] [address] Anion gap [Moles/Vol] 9.3 mmol/L Normal 6.0-15.0 [facility] Comment on above: Order Comment: PT FA STED 12 HOURS Performed By: #### S CAN CBC, CMP #### [address] AST [Catalytic activity/Vol] 19 U/L Normal 13-39 [facility] Comment on above: Order Comment: PT FA STED 12 HOURS Performed By: #### S CAN CBC, CMP #### [address] Bilirubin [Mass/Vol] 1.4 mg/dL High 0.3-1.0 [facility] Comment on above: Order Comment: PT FA STED 12 HOURS Result Comment: Samp les from patients who have taken Naproxen have shown spurious elevation in Total Bilirubin levels. A metabolite of Naproxen, O-desmethylnaproxen, has been shown to interfere with the Jendrassik-Grof method for measuring Total Bilirubin. Performed By: #### S CAN CBC, CMP #### [address] Calcium [Mass/Vol] 9.7 mg/dL Normal 8.6-10.3 [facility] Comment on above: Order Comment: PT FA STED 12 HOURS Performed By: #### S CAN CBC, CMP #### [address] Chloride [Moles/Vol] 104 mmol/L Normal 98-107 [facility] Comment on above: Order Comment: PT FA STED 12 HOURS Performed By: #### S CAN CBC, CMP #### [place] [address] [place] CO2 [Moles/Vol] 31.9 mmol/L High 21.0-31.0 [facility] Comment on above: Order Comment: PT FA STED 12 HOURS Performed By: #### S CAN CBC, CMP #### [place] [address] [place] Creatinine [Mass/Vol] 0.77 mg/dL Normal 0.60-1.20 [facility] Comment on above: Order Comment: PT FA STED 12 HOURS Performed By: #### S CAN CBC, CMP #### [place] [address] [place] Creatinine Clr Calc Pharmacy 76.42 Normal [facility] Comment on above: Order Comment: PT FA STED 12 HOURS Result Comment: PERF ORMED BY: [place] [address] PATHOLOGIST SHOE COVERER MIGUEL LARSEN M.D. Performed By: #### S CAN CBC, CMP #### [facility] [address] [place] [address] [place] GFR/1.73 sq M.predicted MDRD (S/P/Bld) [Vol rate/Area] mL/min/{1.73_m2} Normal [facility] Comment on above: Order Comment: PT FA STED 12 HOURS Performed By: #### S CAN CBC, CMP #### [facility] [address] [place] [address] [place] Globulin (S) [Mass/Vol] 2.2 g/dL Normal [facility] Comment on above: Order Comment: PT FA STED 12 HOURS Performed By: #### S CAN CBC, CMP #### [address] Glucose [Mass/Vol] 79 mg/dL Normal 70-100 [facility] Comment on above: Order Comment: PT FA STED 12 HOURS Result Comment: [place] Glucose Reference Range is dependent on time and content of last meal. Glucose of more than 200 mg/dL in a nonstressed, ambulatory subject supports the diagnosis of Diabetes Mellitus. ADA recommended reference range Performed By: #### S CAN CBC, CMP #### [place] [address] [place] Potassium [Moles/Vol] 4.2 mmol/L Normal 3.5-5.1 [facility] Comment on above: Order Comment: PT FA STED 12 HOURS Performed By: #### S CAN CBC, CMP #### [place] [address] [place] Protein [Mass/Vol] 6.7 g/dL Normal 6.4-8.9 [facility] Comment on above: Order Comment: PT FA STED 12 HOURS Performed By: #### S CAN CBC, CMP #### [place] [address] [place] Sodium [Moles/Vol] 141 mmol/L Normal 136-145 [facility] Comment on above: Order Comment: PT FA STED 12 HOURS Performed By: #### S CAN CBC, CMP #### [place] [address] [place] Urea nitrogen [Mass/Vol] 13 mg/dL Normal 7-25 [facility] Comment on above: Order Comment: PT FA STED 12 HOURS Performed By: #### S CAN CBC, CMP #### [facility] [address] Creatinine [Mass/volume] in Serum or PlasmaOrdered By: Rosa Romo on 03-19-2023 Creatinine [Mass/Vol] 0.77 mg/dL 0.60-1.20 [facility] Eosinophils Auto (Bld) [#/Vo l]Ordered By: Rosa Romo on 03-19-2023 Eosinophils (Bld) [#/Vol] 0.3 10*3/uL 0.0-0.[address] [facility] Eosinophils/100 WBC Auto (Bl d)Ordered By: Rosa Romo on 03-19-2023 Eosinophils/100 WBC (Bld) 4.9 % . [facility] Erythrocyte distribution wid th Auto (RBC) [Ratio]Ordered By: Rosa Romo on 03-19-2023 Erythrocyte distribution width (RBC) [Ratio] 15.4 % 11.9-15.[address] [facility] Globulin Calc (S) [Mass/Vol] Ordered By: Rosa Romo on 03-19-2023 Globulin (S) [Mass/Vol] 2.2 g/dL [facility] Glucose [Mass/volume] in Ser um or PlasmaOrdered By: Rosa Romo on 03-19-2023 Glucose [Mass/Vol] 79 mg/dL 70-100 [facility] Comment on above: ADA recommended refe rence rangeRandom Glucose Reference Range is dependent on time and content of last meal. Glucose of more than 200 mg/dL in a nonstressed, ambulatory subject supports the diagnosis of Diabetes Mellitus. Hematocrit Auto (Bld) [Volum e fraction]Ordered By: Rosa Romo on 03-19-2023 Hematocrit (Bld) [Volume fraction] 41.5 % 34.0-46.[address] [facility] Hemoglobin [Mass/volume] in BloodOrdered By: Rosa Romo on 03-19-2023 Hemoglobin (Bld) [Mass/Vol] 13.7 g/dL 11.8-15.[address] [facility] Leukocytes [#/volume] correc prema for nucleated erythrocytes in Blood by Automated counOrdered By: Rosa Romo on 03-19-2023 WBC corrected for nucl RBC Auto (Bld) [#/Vol] 6.5 10*3/uL 3.8-11.[address] [facility] Lipid Panelon 03-19-2023 Cholesterol [Mass/Vol] 179 mg/dL Normal 140-200 [facility] Comment on above: Order Comment: PT FA STED 12 HOURS Result Comment: Chol less than 200 mg/dl low risk Chol 201-239 mg/dl borderline risk Chol 240 mg/dl and greater high risk Performed By: #### L IPID #### [facility] [address] [place] [id number] [place] Cholesterol in HDL [Mass/Vol] 44 mg/dL Normal 23-92 [facility] Comment on above: Order Comment: PT FA STED 12 HOURS Result Comment: HDL CHOL ATP-III CLASSIFICATION Cardiovascular Risk HDL > or equal to 60 mg/dL LOW HDL < 40 mg/dL HIGH Performed By: #### L IPID #### [facility] [address] [place] [address] [place] Cholesterol.total/Chol esterol in HDL [Mass ratio] 4.1 {ratio} Normal <5.0 [facility] Comment on above: Order Comment: PT FA STED 12 HOURS Result Comment: PERF ORMED BY: [place] [address] PATHOLOGIST SHOE COVERER MIGUEL LARSEN M.D. Performed By: #### L IPID #### [facility] [address] [place] [id number] [place] LDL Cholesterol,Calculated 123 mg/dL High 0-100 [facility] Comment on above: Order Comment: PT FA STED 12 HOURS Result Comment: LDL ATP III CLASSIFICATION LDL less than 100 mg/dL Optimal LDL 100-129 mg/dL Near or above optimal LDL 130-159 mg/dL Borderline high LDL 160-189 mg/dL High LDL greater than 189 mg/dL Very high Performed By: #### L IPID #### [facility] [address] [place] [address] [place] Triglyceride w/Reflex 62 mg/dL Normal 0-149 [facility] Comment on above: Order Comment: PT FA STED 12 HOURS Result Comment: TRIG ATP III CLASSIFICATION TRIG less than 150 mg/dL Normal TRIG 150-199 mg/dL Borderline high TRIG 200-500 mg/dL High TRIG greater than 500 mg/dL Very high Standard traceable to the Center for Disease Conrtrol and Prevention (CDC) test method. Performed By: #### L IPID #### [facility] [address] VLDL CHOLESTEROL 12 mg/dL Normal [facility] Comment on above: Order Comment: PT FA STED 12 HOURS Performed By: #### L IPID #### [facility] [address] Lymphocytes Auto (Bld) [#/Vo l]Ordered By: Rosa Romo on 03-19-2023 Lymphocytes (Bld) [#/Vol] 2.1 10*3/uL 1.00-4.[address] [facility] Lymphocytes/100 WBC Auto (Bl d)Ordered By: Rosa Romo on 03-19-2023 Lymphocytes/100 WBC (Bld) 32.8 % . [facility] MCH Auto (RBC) [Entitic mass ]Ordered By: Rosa Romo on 03-19-2023 MCH (RBC) [Entitic mass] 28.8 pg 24.7-34.[address] [facility] MCHC Auto (RBC) [Mass/Vol]Or dered By: Rosa Romo on 03-19-2023 MCHC (RBC) [Mass/Vol] 33.1 g/dL 32.0-35.0 [facility] MCV Auto (RBC) [Entitic vol] Ordered By: Rosa Romo on 03-19-2023 MCV (RBC) [Entitic vol] 87.1 fL 80-[address] [facility] Monocytes Auto (Bld) [#/Vol] Ordered By: Rosa Romo on 03-19-2023 Monocytes (Bld) [#/Vol] 0.5 10*3/uL 0.0-0.[address] [facility] Monocytes/100 WBC Auto (Bld) Ordered By: Rosa Romo on 03-19-2023 Monocytes/100 WBC (Bld) 7.3 % . [facility] Neutrophils Auto (Bld) [#/Vo l]Ordered By: Rosa Romo on 03-19-2023 Neutrophils (Bld) [#/Vol] 3.5 10*3/uL 1.8-7.[address] [facility] Neutrophils/100 WBC Auto (Bl d)Ordered By: Rosa Romo on 03-19-2023 Neutrophils/100 WBC (Bld) 54.1 % . [facility] No Panel InformationOrdered By: Rosa Romo on 03-19-2023 Estimated GFR (CKD-EPI) > 60.0 mL/Min [facility] Creatinine Clearance (Chem 76.[address] [facility] Nucleated erythrocytes [Pres ence] in Blood by Automated countOrdered By: Rosa Romo on 03-19-2023 Nucleated RBC Auto Ql (Bld) 0.0 /100{WBC} 0-0.[address] [facility] Platelet adequacy [Presence] in Blood by Light microscopyOrdered By: Rosa Romo on 03-19-2023 Platelets LM Ql (Bld) Increased Normal [facility] Platelet mean volume Auto (B ld) [Entitic vol]Ordered By: Rosa Romo on 03-19-2023 Platelet mean volume (Bld) [Entitic vol] 8.5 fL 6.3-10.[address] [facility] Platelet morphology finding [Identifier] in BloodOrdered By: Rosa Romo on 03-19-2023 Platelet morphology finding Nom (Bld) Normal Normal [facility] Platelets Auto (Bld) [#/Vol] Ordered By: Rosa Romo on 03-19-2023 Platelets (Bld) [#/Vol] 537 10*3/uL 150-[address] [facility] Potassium [Moles/volume] in Serum or PlasmaOrdered By: Rosa Romo on 03-19-2023 Potassium [Moles/Vol] 4.2 mmol/L 3.5-5.1 [facility] Protein [Mass/volume] in Ser um or PlasmaOrdered By: Rosa Romo on 03-19-2023 Protein [Mass/Vol] 6.7 g/dL 6.4-8.9 [facility] RBC Auto (Bld) [#/Vol]Ordere d By: Rosa Romo on 03-19-2023 RBC (Bld) [#/Vol] 4.76 10*6/uL 3.60-5.00 [facility] RBC morphologyOrdered By: Rosie Romo on 03-19-2023 RBC morphology finding Nom (Bld) Normal Normal [facility] Scan and CBCon 03-19-2023 Basophils (Bld) [#/Vol] 0.1 10*3/uL Normal 0.0-0.2 [facility] Comment on above: Performed By: #### S CAN CBC, CMP #### [facility] [address] [place] [address] [place] Basophils/100 WBC (Bld) 0.9 % Normal . [facility] Comment on above: Performed By: #### S CAN CBC, CMP #### [facility] [address] [place] [address] [place] Eosinophils (Bld) [#/Vol] 0.3 10*3/uL Normal 0.0-0.45 [facility] Comment on above: Performed By: #### S CAN CBC, CMP #### [facility] [address] [place] [id number] [place] Eosinophils/100 WBC (Bld) 4.9 % Normal . [facility] Comment on above: Performed By: #### S CAN CBC, CMP #### [facility] [address] Erythrocyte distribution width (RBC) [Ratio] 15.4 % High 11.9-15.3 [facility] Comment on above: Performed By: #### S CAN CBC, CMP #### [facility] [address] [place] [id number] [place] Hematocrit (Bld) [Volume fraction] 41.5 % Normal 34.0-46.4 [facility] Comment on above: Performed By: #### S CAN CBC, CMP #### [facility] [address] [place] [address] [place] Hemoglobin (Bld) [Mass/Vol] 13.7 g/dL Normal 11.8-15.4 [facility] Comment on above: Performed By: #### S CAN CBC, CMP #### [facility] [address] Lymphocytes (Bld) [#/Vol] 2.1 10*3/uL Normal 1.00-4.8 [facility] Comment on above: Performed By: #### S CAN CBC, CMP #### [address] Lymphocytes/100 WBC (Bld) 32.8 % Normal . [facility] Comment on above: Performed By: #### S CAN CBC, CMP #### [address] MCH (RBC) [Entitic mass] 28.8 pg Normal 24.7-34.3 [facility] Comment on above: Performed By: #### S CAN CBC, CMP #### [address] MCV (RBC) [Entitic vol] 87.1 fL Normal 80-100 [facility] Comment on above: Performed By: #### S CAN CBC, CMP #### [address] Mean Corpuscular HGB Conc 33.1 g/dL Normal 32.0-35.0 [facility] Comment on above: Performed By: #### S CAN CBC, CMP #### [address] Monocytes (Bld) [#/Vol] 0.5 10*3/uL Normal 0.0-0.8 [facility] Comment on above: Performed By: #### S CAN CBC, CMP #### [place] [address] [place] Monocytes/100 WBC (Bld) 7.3 % Normal . [facility] Comment on above: Performed By: #### S CAN CBC, CMP #### [address] Neutrophils (Bld) [#/Vol] 3.5 10*3/uL Normal 1.8-7.7 [facility] Comment on above: Performed By: #### S CAN CBC, CMP #### [address] Neutrophils/100 WBC (Bld) 54.1 % Normal . [facility] Comment on above: Performed By: #### S CAN CBC, CMP #### [address] NRBC% 0.0 /100{WBC} Normal 0-0.5 [facility] Comment on above: Performed By: #### S CAN CBC, CMP #### [address] Platelet Estimate Increased Normal Normal [facility] Comment on above: Performed By: #### S CAN CBC, CMP #### [address] Platelet mean volume (Bld) [Entitic vol] 8.5 fL Normal 6.3-10.7 [facility] Comment on above: Performed By: #### S CAN CBC, CMP #### [address] Platelet Morphology Normal Normal Normal [facility] Comment on above: Result Comment: PERF ORMED BY: [place] [address] PATHOLOGIST SHOE COVERER MIGUEL LARSEN M.D. Performed By: #### S CAN CBC, CMP #### [address] Platelets (Bld) [#/Vol] 537 10*3/uL High 150-450 [facility] Comment on above: Performed By: #### S CAN CBC, CMP #### [address] RBC (Bld) [#/Vol] 4.76 10*6/uL Normal 3.60-5.00 [facility] Comment on above: Performed By: #### S CAN CBC, CMP #### [address] RBC morphology finding Nom (Bld) Normal Normal Normal [facility] Comment on above: Performed By: #### S CAN CBC, CMP #### [facility] [address] WBC (Bld) [#/Vol] 6.5 10*3/uL Normal 3.8-11.6 [facility] Comment on above: Performed By: #### S CAN CBC, CMP #### [facility] [address] Serum or plasma albumin/glob ulin mass ratioOrdered By: Rosa Romo on 03-19-2023 Albumin/Globulin [Mass ratio] 2.0 {ratio} [facility] Serum or plasma anion gap de terminationOrdered By: Rosa Romo on 03-19-2023 Anion gap [Moles/Vol] 9.3 mmol/L 6.0-15.0 [facility] Serum or plasma high density lipoprotein (HDL) cholesterol measurementOrdered By: Zeus Lamas on 03-19-2023 Cholesterol in HDL [Mass/Vol] 44 mg/dL [facility] Comment on above: HDL CHOL ATP-III CLA SSIFICATION Cardiovascular RiskHDL > or equal to 60 mg/dL LOWHDL < 40 mg/dL HIGH Serum or plasma total choles terol/high density lipoprotein (HDL) cholesterol mass ratOrdered By: Zeus Lamas on 03-19-2023 Cholesterol.total/Chol esterol in HDL [Mass ratio] 4.1 {ratio} <5.[address] [facility] Sodium [Moles/volume] in Ser um or PlasmaOrdered By: Rosa Romo on 03-19-2023 Sodium [Moles/Vol] 141 mmol/L 136-145 [facility] Triglyceride [Mass/volume] i n Serum or PlasmaOrdered By: Zeus Lamas on 03-19-2023 Triglyceride [Mass/Vol] 62 mg/dL 0-[address] [facility] Comment on above: TRIG ATP III CLASSIF ICATIONTRIG less than 150 mg/dL NormalTRIG 150-199 mg/dL Borderline highTRIG 200-500 mg/dL High TRIG greater than 500 mg/dL Very highStandard traceable to the Center for Disease Conrtrol and Prevention (CDC) test method. Urea nitrogen [Mass/volume] in Serum or PlasmaOrdered By: Rosa Romo on 03-19-2023 Urea nitrogen [Mass/Vol] 13 mg/dL [address] [facility] WBC Auto (Bld) [#/Vol]Ordere d By: Rosa Romo on 03-19-2023 WBC (Bld) [#/Vol] 6.5 10*3/uL 3.8-11.6 [facility] Complete Blood Count Auto Di ffon 09-22-2022 Basophils (Bld) [#/Vol] 0.1 10*3/uL Normal 0.0-0.2 [facility] Comment on above: Result Comment: PERF ORMED BY: [place] [address] PATHOLOGIST SHOE COVERER MIGUEL LARSEN M.D. Performed By: #### C BC #### [address] Basophils/100 WBC (Bld) 0.7 % Normal . [facility] Comment on above: Performed By: #### C BC #### [address] Eosinophils (Bld) [#/Vol] 0.3 10*3/uL Normal 0.0-0.45 [facility] Comment on above: Performed By: #### C BC #### [address] Eosinophils/100 WBC (Bld) 4.4 % Normal . [facility] Comment on above: Performed By: #### C BC #### [address] Erythrocyte distribution width (RBC) [Ratio] 14.7 % Normal 11.9-15.3 [facility] Comment on above: Performed By: #### C BC #### [address] Hematocrit (Bld) [Volume fraction] 42.0 % Normal 34.0-46.4 [facility] Comment on above: Performed By: #### C BC #### [address] Hemoglobin (Bld) [Mass/Vol] 13.7 g/dL Normal 11.8-15.4 [facility] Comment on above: Performed By: #### C BC #### [address] Lymphocytes (Bld) [#/Vol] 1.8 10*3/uL Normal 1.00-4.8 [facility] Comment on above: Performed By: #### C BC #### [address] Lymphocytes/100 WBC (Bld) 22.7 % Normal . [facility] Comment on above: Performed By: #### C BC #### [address] MCH (RBC) [Entitic mass] 28.8 pg Normal 24.7-34.3 [facility] Comment on above: Performed By: #### C BC #### [address] MCV (RBC) [Entitic vol] 88.4 fL Normal 80-100 [facility] Comment on above: Performed By: #### C BC #### [address] Mean Corpuscular HGB Conc 32.6 g/dL Normal 32.0-35.0 [facility] Comment on above: Performed By: #### C BC #### [address] Monocytes (Bld) [#/Vol] 0.5 10*3/uL Normal 0.0-0.8 [facility] Comment on above: Performed By: #### C BC #### [address] Monocytes/100 WBC (Bld) 6.5 % Normal . [facility] Comment on above: Performed By: #### C BC #### [address] Neutrophils (Bld) [#/Vol] 5.1 10*3/uL Normal 1.8-7.7 [facility] Comment on above: Performed By: #### C BC #### [facility] [address] Neutrophils/100 WBC (Bld) 65.7 % Normal . [facility] Comment on above: Performed By: #### C BC #### [facility] [address] NRBC% 0.1 /100{WBC} Normal 0-0.5 [facility] Comment on above: Performed By: #### C BC #### [address] Platelet mean volume (Bld) [Entitic vol] 8.5 fL Normal 6.3-10.7 [facility] Comment on above: Performed By: #### C BC #### [address] Platelets (Bld) [#/Vol] 551 10*3/uL High 150-450 [facility] Comment on above: Performed By: #### C BC #### [address] RBC (Bld) [#/Vol] 4.75 10*6/uL Normal 3.60-5.00 [facility] Comment on above: Performed By: #### C BC #### [address] WBC (Bld) [#/Vol] 7.7 10*3/uL Normal 3.8-11.6 [facility] Comment on above: Performed By: #### C BC #### [place] [address] [place] Basophils Auto (Bld) [#/Vol] Ordered By: Rosa Romo on 03-22-2022 Basophils (Bld) [#/Vol] 0.1 10*3/uL 0.0-0.[address] [facility] Basophils/100 WBC Auto (Bld) Ordered By: Rosa Romo on 03-22-2022 Basophils/100 WBC (Bld) 0.9 % . [facility] Body fluid albumin measureme nt (mass/volume)Ordered By: Rosa Romo on 03-22-2022 Albumin (Body fld) [Mass/Vol] 4.3 g/dL 3.2-5.[address] [facility] Creatinine and Glomerular fi ltration rate.predicted panel (S/P/Bld)Ordered By: Rosa Romo on 03-22-2022 Creatinine [Mass/Vol] 0.79 mg/dL 0.44-1.03 [facility] Eosinophils Auto (Bld) [#/Vo l]Ordered By: Rosa Romo on 03-22-2022 Eosinophils (Bld) [#/Vol] 0.2 10*3/uL 0.0-0.[address] [facility] Eosinophils/100 WBC Auto (Bl d)Ordered By: Rosa Romo on 03-22-2022 Eosinophils/100 WBC (Bld) 2.4 % . [facility] Erythrocyte distribution wid th Auto (RBC) [Ratio]Ordered By: Rosa Romo on 03-22-2022 Erythrocyte distribution width (RBC) [Ratio] 14.7 % 11.9-15.[address] [facility] Estimated glomerular filtrat ion rate (GFR) non- AmericanOrdered By: Rosa Romo on 03-22-2022 GFR/1.73 sq M.predicted among non-blacks MDRD (S/P/Bld) [Vol rate/Area] > 60 mL/Min [facility] Globulin Calc (S) [Mass/Vol] Ordered By: Rosa Romo on 03-22-2022 Globulin (S) [Mass/Vol] 2.2 g/dL [facility] Hematocrit Auto (Bld) [Volum e fraction]Ordered By: Rosa Romo on 03-22-2022 Hematocrit (Bld) [Volume fraction] 41.9 % 34.0-46.[address] [facility] Hemoglobin [Mass/volume] in BloodOrdered By: Rosa Romo on 03-22-2022 Hemoglobin (Bld) [Mass/Vol] 13.6 g/dL 11.8-15.[address] [facility] Laboratory - Hematology and Cell countsOrdered By: Rosa Romo on 03-22-2022 Nucleated RBC/100 WBC (Bld) [Ratio] 0.0 % 0-0.[address] [facility] Leukocytes [#/volume] in Blo od by Automated countOrdered By: Rosa Romo on 03-22-2022 WBC (Bld) [#/Vol] 8.0 10*3/uL 4.5-11.0 [facility] Lymphocytes Auto (Bld) [#/Vo l]Ordered By: Rosa Romo on 03-22-2022 Lymphocytes (Bld) [#/Vol] 2.0 10*3/uL 1.00-4.[address] [facility] Lymphocytes/100 WBC Auto (Bl d)Ordered By: Rosa Romo on 03-22-2022 Lymphocytes/100 WBC (Bld) 24.9 % . [facility] MCH Auto (RBC) [Entitic mass ]Ordered By: Rosa Romo on 03-22-2022 MCH (RBC) [Entitic mass] 29.4 pg 24.7-34.[address] [facility] MCHC Auto (RBC) [Mass/Vol]Or dered By: Rosa Romo on 03-22-2022 MCHC (RBC) [Mass/Vol] 32.5 g/dL 32.0-35.0 [facility] MCV Auto (RBC) [Entitic vol] Ordered By: Rosa Romo on 03-22-2022 MCV (RBC) [Entitic vol] 90.4 fL 80-[address] [facility] Monocytes Auto (Bld) [#/Vol] Ordered By: Rosa Romo on 03-22-2022 Monocytes (Bld) [#/Vol] 0.4 10*3/uL 0.0-0.[address] [facility] Monocytes/100 WBC Auto (Bld) Ordered By: Rosa Romo on 03-22-2022 Monocytes/100 WBC (Bld) 5.2 % . [facility] Neutrophils Auto (Bld) [#/Vo l]Ordered By: Rosa Romo on 03-22-2022 Neutrophils (Bld) [#/Vol] 5.3 10*3/uL 1.8-7.[address] [facility] Neutrophils/100 WBC Auto (Bl d)Ordered By: Rosa Romo on 03-22-2022 Neutrophils/100 WBC (Bld) 66.6 % . [facility] No Panel InformationOrdered By: Rosa Romo on 03-22-2022 Estimated GFR () > 60 mL/Min [facility] Comment on above: GFR estimated refere nce range: According to KDOQI guidelines, <60 ml/min/1.73m2 is sufficient to diagnose a patient with chronic kidney disease. Pharmacy Creatinine Clearance (Chem 75.[address] [facility] Platelet mean volume Auto (B ld) [Entitic vol]Ordered By: Rosa Romo on 03-22-2022 Platelet mean volume (Bld) [Entitic vol] 8.3 fL 6.3-10.[address] [facility] Platelets Auto (Bld) [#/Vol] Ordered By: Rosa Romo on 03-22-2022 Platelets (Bld) [#/Vol] 506 10*3/uL 150-[address] [facility] Protein [Mass/volume] in Ser um or PlasmaOrdered By: Rosa Romo on 03-22-2022 Protein [Mass/Vol] 6.5 g/dL 6.1-7.9 [facility] RBC Auto (Bld) [#/Vol]Ordere d By: Rosa Romo on 03-22-2022 RBC (Bld) [#/Vol] 4.63 10*6/uL 3.60-5.00 [facility] Serum or plasma alanine black otransferase measurement without P-5'-P (enzymatic activiOrdered By: Rosa Romo on 03-22-2022 ALT No additional P-5'-P [Catalytic activity/Vol] 17 U/L 10-[address] [facility] Serum or plasma albumin/glob ulin mass ratioOrdered By: Rosa Romo on 03-22-2022 Albumin/Globulin [Mass ratio] 2.0 {ratio} [facility] Serum or plasma alkaline laurie sphatase measurement (enzymatic activity/volume)Ordered By: Rosa Romo on 03-22-2022 ALP [Catalytic activity/Vol] 56 U/L 32-[address] [facility] Serum or plasma anion gap de terminationOrdered By: Rosa Romo on 03-22-2022 Anion gap [Moles/Vol] 11.6 mmol/L 6.0-15.0 [facility] Serum or plasma aspartate am inotransferase measurement (enzymatic activity/volume)Ordered By: Rosa Romo on 03-22-2022 AST [Catalytic activity/Vol] 22 U/L 10-[address] [facility] Serum or plasma calcium los urement (mass/volume)Ordered By: Rosa Romo on 03-22-2022 Calcium [Mass/Vol] 9.7 mg/dL 8.2-10.2 [facility] Serum or plasma chloride theresa surement (moles/volume)Ordered By: Rosa Romo on 03-22-2022 Chloride [Moles/Vol] 100 mmol/L 95-114 [facility] Serum or plasma glucose los urement (mass/volume)Ordered By: Rosa Romo on 03-22-2022 Glucose [Mass/Vol] 123 mg/dL 70-100 [facility] Comment on above: ADA recommended refe rence rangeRandom Glucose Reference Range is dependent on time and content of last meal. Glucose of more than 200 mg/dL in a nonstressed, ambulatory subject supports the diagnosis of Diabetes Mellitus. Serum or plasma potassium me asurement (moles/volume)Ordered By: Rosa Romo on 03-22-2022 Potassium [Moles/Vol] 4.4 mmol/L 3.5-5.1 [facility] Serum or plasma sodium measu rement (moles/volume)Ordered By: Rosa Romo on 03-22-2022 Sodium [Moles/Vol] 137 mmol/L 136-146 [facility] Serum or plasma total biliru bin measurement (mass/volume)Ordered By: Rosa Romo on 03-22-2022 Bilirubin [Mass/Vol] 1.8 mg/dL 0.3-1.2 [facility] Comment on above: Samples from patient s who have taken Naproxen have shown spurious elevation in Total Bilirubin levels. A metabolite of Naproxen, O-desmethylnaproxen, has been shown to interfere with the Pop-Adeel method for measuring Total Bilirubin. Serum or plasma total carbon dioxide measurement (moles/volume)Ordered By: Rosa Romo on 03-22-2022 CO2 [Moles/Vol] 29.8 mmol/L 22.0-30.0 [facility] Serum or plasma urea nitroge n measurement (mass/volume)Ordered By: Rosa Romo on 03-22-2022 Urea nitrogen [Mass/Vol] 12 mg/dL 9- [facility] Basophils Auto (Bld) [#/Vol] Ordered By: Rosa Romo on 12-20-2021 Basophils (Bld) [#/Vol] 0.0 10*3/uL 0.0-0.[address] [facility] Basophils/100 WBC Auto (Bld) Ordered By: Rosa Romo on 12-20-2021 Basophils/100 WBC (Bld) 0.7 % . [facility] Blood hemoglobin measurement (mass/volume)Ordered By: Rosa Romo on 12-20-2021 Hemoglobin (Bld) [Mass/Vol] 13.6 g/dL 11.8-15.[address] [facility] Blood leukocytes automated c ount (number/volume)Ordered By: Rosa Romo on 12-20-2021 WBC (Bld) [#/Vol] 6.3 10*3/uL 4.5-11.0 [facility] Body fluid albumin measureme nt (mass/volume)Ordered By: Rosa Romo on 12-20-2021 Albumin (Body fld) [Mass/Vol] 4.7 g/dL 3.2-5.[address] [facility] CT biopsyOrdered By: Rosa Galindo se on 12-20-2021 Transferrin [Mass/Vol] 258 mg/dL 180-380 [facility] Cholesterol [Mass/volume] in Serum or PlasmaOrdered By: Zeus Lamas on 12-20-2021 Cholesterol [Mass/Vol] 175 mg/dL 140-200 [facility] Comment on above: Chol less than 200 m g/dl low risk Chol 201-239 mg/dl borderline risk Chol 240 mg/dl and greater high risk Cholesterol in LDL Calc [Mas s/Vol]Ordered By: Zeus Lamas on 12-20-2021 Cholesterol in LDL [Mass/Vol] 119 mg/dL 0-[address] [facility] Comment on above: LDL ATP III CLASSIFI CATION LDL less than 100 mg/dL Optimal LDL 100-129 mg/dL Near or above optimal LDL 130-159 mg/dL Borderline high LDL 160-189 mg/dL High LDL greater than 189 mg/dL Very high Cholesterol in VLDL Calc [Ma ss/Vol]Ordered By: Zeus Lamas on 12-20-2021 Cholesterol in VLDL [Mass/Vol] 11 mg/dL [facility] Creatinine and Glomerular fi ltration rate.predicted panel (S/P/Bld)Ordered By: Rosa Romo on 12-20-2021 Creatinine [Mass/Vol] 0.78 mg/dL 0.44-1.03 [facility] Eosinophils Auto (Bld) [#/Vo l]Ordered By: Rosa Romo on 12-20-2021 Eosinophils (Bld) [#/Vol] 0.2 10*3/uL 0.0-0.[address] [facility] Eosinophils/100 WBC Auto (Bl d)Ordered By: Rosa Romo on 12-20-2021 Eosinophils/100 WBC (Bld) 2.9 % . [facility] Erythrocyte distribution wid th Auto (RBC) [Ratio]Ordered By: Rosa Romo on 12-20-2021 Erythrocyte distribution width (RBC) [Ratio] 15.6 % 11.9-15.[address] [facility] Estimated glomerular filtrat ion rate (GFR) non- AmericanOrdered By: Rosa Romo on 12-20-2021 GFR/1.73 sq M.predicted among non-blacks MDRD (S/P/Bld) [Vol rate/Area] > 60 mL/Min [facility] Ferritin [Mass/volume] in Se rum or PlasmaOrdered By: Rosa Romo on 12-20-2021 Ferritin [Mass/Vol] 278.9 ng/mL 11-306.8 [facility] Globulin Calc (S) [Mass/Vol] Ordered By: Rosa Romo on 12-20-2021 Globulin (S) [Mass/Vol] 2.2 g/dL [facility] Hematocrit Auto (Bld) [Volum e fraction]Ordered By: Rosa Romo on 12-20-2021 Hematocrit (Bld) [Volume fraction] 41.2 % 34.0-46.[address] [facility] Iron [Mass/volume] in Serum or PlasmaOrdered By: Rosa Romo on 12-20-2021 Iron [Mass/Vol] 90 ug/dL 40-[address] [facility] Iron binding capacity [Mass/ volume] in Serum or PlasmaOrdered By: Rosa Romo on 12-20-2021 Iron binding capacity [Mass/Vol] 361 ug/dL 255-[address] [facility] Iron saturation [Mass Fracti on] in Serum or PlasmaOrdered By: Rosa Romo on 12-20-2021 Iron saturation [Mass fraction] 24.0 % 20-[address] [facility] Laboratory - Hematology and Cell countsOrdered By: Rosa Romo on 12-20-2021 Nucleated RBC/100 WBC (Bld) [Ratio] 0.0 % 0-0.[address] [facility] Lymphocytes Auto (Bld) [#/Vo l]Ordered By: Rosa Romo on 12-20-2021 Lymphocytes (Bld) [#/Vol] 1.7 10*3/uL 1.00-4.[address] [facility] Lymphocytes/100 WBC Auto (Bl d)Ordered By: Rosa Romo on 12-20-2021 Lymphocytes/100 WBC (Bld) 26.9 % . [facility] MCH Auto (RBC) [Entitic mass ]Ordered By: Rosa Romo on 12-20-2021 MCH (RBC) [Entitic mass] 29.8 pg 24.7-34.[address] [facility] MCHC Auto (RBC) [Mass/Vol]Or dered By: Rosa Romo on 12-20-2021 MCHC (RBC) [Mass/Vol] 33.1 g/dL 32.0-35.0 [facility] MCV Auto (RBC) [Entitic vol] Ordered By: Rosa Romo on 12-20-2021 MCV (RBC) [Entitic vol] 90.0 fL 80-[address] [facility] Monocytes Auto (Bld) [#/Vol] Ordered By: Rosa Romo on 12-20-2021 Monocytes (Bld) [#/Vol] 0.4 10*3/uL 0.0-0.[address] [facility] Monocytes/100 WBC Auto (Bld) Ordered By: Rosa Romo on 12-20-2021 Monocytes/100 WBC (Bld) 6.3 % . [facility] Neutrophils Auto (Bld) [#/Vo l]Ordered By: Rosa Romo on 12-20-2021 Neutrophils (Bld) [#/Vol] 4.0 10*3/uL 1.8-7.[address] [facility] Neutrophils/100 WBC Auto (Bl d)Ordered By: Rosa Romo on 12-20-2021 Neutrophils/100 WBC (Bld) 63.2 % . [facility] No Panel InformationOrdered By: Rsoa Romo on 12-20-2021 Estimated GFR () > 60 mL/Min [facility] Comment on above: GFR estimated refere nce range: According to KDOQI guidelines, <60 ml/min/1.73m2 is sufficient to diagnose a patient with chronic kidney disease. Pharmacy Creatinine Clearance (Chem 76.[address] [facility] Platelet mean volume Auto (B ld) [Entitic vol]Ordered By: Rosa Romo on 12-20-2021 Platelet mean volume (Bld) [Entitic vol] 8.5 fL 6.3-10.[address] [facility] Platelets Auto (Bld) [#/Vol] Ordered By: Rosa Romo on 12-20-2021 Platelets (Bld) [#/Vol] 527 10*3/uL 150-[address] [facility] Protein [Mass/volume] in Ser um or PlasmaOrdered By: Rosa Romo on 12-20-2021 Protein [Mass/Vol] 6.9 g/dL 6.1-7.9 [facility] RBC Auto (Bld) [#/Vol]Ordere d By: Rosa Romo on 12-20-2021 RBC (Bld) [#/Vol] 4.58 10*6/uL 3.60-5.00 [facility] Serum or plasma alanine black otransferase measurement without P-5'-P (enzymatic activiOrdered By: Rosa Romo on 12-20-2021 ALT No additional P-5'-P [Catalytic activity/Vol] 22 U/L 10-[address] [facility] Serum or plasma albumin/glob ulin mass ratioOrdered By: Rosa Romo on 12-20-2021 Albumin/Globulin [Mass ratio] 2.1 {ratio} [facility] Serum or plasma alkaline laurie sphatase measurement (enzymatic activity/volume)Ordered By: Rosa Romo on 12-20-2021 ALP [Catalytic activity/Vol] 52 U/L 32-[address] [facility] Serum or plasma aspartate am inotransferase measurement (enzymatic activity/volume)Ordered By: Rosa Romo on 12-20-2021 AST [Catalytic activity/Vol] 24 U/L 10-[address] [facility] Serum or plasma calcium los urement (mass/volume)Ordered By: Rosa Romo on 12-20-2021 Calcium [Mass/Vol] 9.9 mg/dL 8.2-10.2 [facility] Serum or plasma chloride theresa surement (moles/volume)Ordered By: Rosa Romo on 12-20-2021 Chloride [Moles/Vol] 100 mmol/L 95-114 [facility] Serum or plasma glucose los urement (mass/volume)Ordered By: Rosa Romo on 12-20-2021 Glucose [Mass/Vol] 89 mg/dL 70-100 [facility] Comment on above: ADA recommended refe rence range Random Glucose Reference Range is dependent on time and content of last meal. Glucose of more than 200 mg/dL in a nonstressed, ambulatory subject supports the diagnosis of Diabetes Mellitus. Serum or plasma high density lipoprotein (HDL) cholesterol measurementOrdered By: Zeus Lamas on 12-20-2021 Cholesterol in HDL [Mass/Vol] 45 mg/dL 35-[address] [facility] Comment on above: HDL CHOL ATP-III CLA SSIFICATION Cardiovascular Risk HDL > or equal to 60 mg/dL LOW HDL < 40 mg/dL HIGH Serum or plasma potassium me asurement (moles/volume)Ordered By: Rosa Romo on 12-20-2021 Potassium [Moles/Vol] 4.0 mmol/L 3.5-5.1 [facility] Serum or plasma sodium measu rement (moles/volume)Ordered By: Rosa Romo on 12-20-2021 Sodium [Moles/Vol] 138 mmol/L 136-146 [facility] Serum or plasma total biliru bin measurement (mass/volume)Ordered By: Rosa Romo on 12-20-2021 Bilirubin [Mass/Vol] 1.4 mg/dL 0.3-1.2 [facility] Comment on above: Samples from patient s who have taken Naproxen have shown spurious elevation in Total Bilirubin levels. A metabolite of Naproxen, O-desmethylnaproxen, has been shown to interfere with the Jenjesenia-Adeel method for measuring Total Bilirubin. Serum or plasma total carbon dioxide measurement (moles/volume)Ordered By: Rosa Romo on 12-20-2021 CO2 [Moles/Vol] 30.2 mmol/L 22.0-30.0 [facility] Serum or plasma total choles terol/high density lipoprotein (HDL) cholesterol mass ratOrdered By: Zeus Lamas on 12-20-2021 Cholesterol.total/Chol esterol in HDL [Mass ratio] 3.9 {ratio} <5.[address] [facility] Serum or plasma urea nitroge n measurement (mass/volume)Ordered By: Rosa Romo on 12-20-2021 Urea nitrogen [Mass/Vol] 9 mg/dL 9-[address] [facility] Triglyceride [Mass/volume] i n Serum or PlasmaOrdered By: Zeus Lamas on 12-20-2021 Triglyceride [Mass/Vol] 57 mg/dL 35-[address] [facility] Comment on above: TRIG ATP III CLASSIF ICATION TRIG less than 150 mg/dL Normal TRIG 150-199 mg/dL Borderline high TRIG 200-500 mg/dL High TRIG greater than 500 mg/dL Very high Standard traceable to the Center for Disease Conrtrol and Prevention (CDC) test method. Complete Blood Counton 05-16 Erythrocyte distribution width (RBC) [Ratio] 14.4 % Normal 11.0-15.0 [facility] Comment on above: Performed By: #### C BC #### [facility] [address], [place] [id number] Hematocrit (Bld) [Volume fraction] 44.4 % Normal 35.0-47.0 [facility] Comment on above: Performed By: #### C BC #### [facility] [address], [place] [id number] Hemoglobin (Bld) [Mass/Vol] 14.1 g/dL Normal 11.6-15.5 [facility] Comment on above: Performed By: #### C BC #### [facility] [address], [place] [id number] MCH (RBC) [Entitic mass] 28.3 pg Normal 27.0-33.0 [facility] Comment on above: Performed By: #### C BC #### [facility] [address], [place] [id number] MCHC (RBC) [Mass/Vol] 31.8 g/dL Low 32.0-36.0 [facility] Comment on above: Performed By: #### C BC #### [facility] [address], [place] [id number] MCV (RBC) [Entitic vol] 89 fL Normal 80-100 [facility] Comment on above: Performed By: #### C BC #### [facility] [address], [place] [id number] Platelet mean volume (Bld) [Entitic vol] 10.40 fL Normal 7.50-12.50 [facility] Comment on above: Performed By: #### C BC #### [facility] [address], [place] [id number] Platelets (Bld) [#/Vol] 555 10*3/uL High 140-400 [facility] Comment on above: Performed By: #### C BC #### [facility] [address], [place] [id number] RBC (Bld) [#/Vol] 4.99 10*6/uL Normal 3.90-5.20 [facility] Comment on above: Performed By: #### C BC #### [facility] [address], [place] [id number] RDW-SD 46.8 fL Normal 37.0-50.0 [facility] Comment on above: Performed By: #### C BC #### [facility] [address], [place] [id number] WBC (Bld) [#/Vol] 6.7 10*3/uL Normal 3.8-11.0 [facility] Comment on above: Performed By: #### C BC #### [facility] [address], [place] [id number] CNOVon 03-17-2021 CNOV Office Visit (CARDMN ) GLORIA ALLEN ([id number]) 1960 F Date Time Provider Department 03/17/21 [...] to seek emergency care. She wore a [employer] event monitor for 12 days in January [...] bearing down or coughing Occur 3x/week Wore [employer] event monitor for 12 days in 01/2021. [...] No sudden deaths, atrial fibrillation. 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 , 3 children, 1 grandchild. Lives in [place], [place] Habits: Tobacco: none. Alcohol: 1 drink [...] acid (RHIANNON (more content not included)... Normal [facility] 03-17-2021 CNPN Telephone (CARDMN) GLORIA ALLEN ([id number]) 1960 F Date Time Provider Department 03/17/21 NIKITA REYES During your visit today, we recorded the following information about you: Philly Nair 03/17/2021 4:06 PM Signed Outside medical records scanned into Zixi drive. Disk uploaded to [employer]: Echocardiogram 01/27/2021. Allergies As of Date: 03/17/2021 (Not on File) Date Reviewed: Never Reviewed Reason for Visit: Received Outside Medical Records [[id number]] Problem List As Of Date: 03/17/2021 (None) Encounter Status:Closed by PHILLY NAIR on 03/17/21 [facility] 12-31-2020 CNCO Letter Text [facility] CNPNon 12-30-2020 CNPN Telephone (REFPHY) GLORIA ALLEN ([id number]) 1960 F Date Time Provider Department 12/30/20 NO PCP (HISTORICAL) REFPHY During your visit today, we recorded the following information about you: Kyle Crowell 12/30/2020 9:12 AM Signed Patient: Gloria Allen Date of : 1960 Patient phone number: [phone] Referring Provider for the encounter: Zeus Lamas Requesting Provider: Nikita Reyes Reason for requesting visit (RFV/signs and symptoms/diagnosis): palpitations Person calling: via RP fax Return call to: self Medical Records/Insurance Card scanned into [employer]: No Comments: helder Boles 12/31/2020 10:34 AM Signed [facility] RP - Message left for patient to call back to schedule an appointment in EP? for Palpitations, requesting Dr. Reyes per RP referrals. Allergies As of Date: 12/30/2020 (Not on File) Date Reviewed: Never Reviewed Reason for Visit: External Referrals/resources [909] Problem List As Of Date: 12/30/2020 (None) Encounter Status:Closed by KYLE MUNOZ on 12/30/20 [facility] CNPNon 12-23-2020 CNPN Telephone (REFPHY) GLORIA ALLEN ([id number]) 1960 F Date Time Provider Department 12/23/20 NO ONE (HISTORICAL) REFPHY During your visit today, we recorded the following information about you: Alexandria Hernandez 12/23/2020 7:19 AM Signed Patient: Gloria Allen Date of : 1960 Patient phone number: [phone] Referring Provider for the encounter: Dr Zeus Lamas Requesting Provider: Dr Wesley Mallory - Cardiology Reason for requesting visit (RFV/signs and symptoms/diagnosis): Tachycardia, palipatations Person calling: caregiver: ASHLEY Return call to: self Medical Records/Insurance Card scanned into [employer]: Yes Comments: Additional records saved to [facility] Boles 12/23/2020 9:31 AM Signed HVTI [...] Status:Closed by ALEXANDRIA TERRY on 12/23/20 Normal [facility] Albumin [Mass/volume] in Ser um or PlasmaOrdered By: Rosa Romo on 12-16-2020 Albumin [Mass/Vol] 3.9 g/dL 2.9-4.4 [facility] Immunoglobulin light chains. kappa.free [Mass/volume] in SerumOrdered By: Rosa Romo on 12-16-2020 Immunoglobulin light chains.kappa.free (S) [Mass/Vol] 12.3 mg/L 3.3-19.[address] [facility] Immunoglobulin light chains. kappa.free/Immunoglobulin light chains.lambda.free [MassOrdered By: Rosa Romo on 12-16-2020 Immunoglobulin light chains.kappa.free/Immu noglobulin light chains.lambda.free (S) [Mass ratio] 0.83 0.26-1.[address] [facility] Comment on above: Performed at: [address] [id number] Consultant Nurse: Osiel Combs PhD, Phone: [phone] Performed at: [address] [id number] Director: Osiel Combs PhD, Phone: [phone] Immunoglobulin light chains. lambda.free [Mass/volume] in Serum or PlasmaOrdered By: Rosa Romo on 12-16-2020 Immunoglobulin light chains.lambda.free [Mass/Vol] 14.8 mg/L 5.7-26.[address] [facility] No Panel InformationOrdered By: Rosa Romo on 12-16-2020 25-Hydroxy Vitamin D Total 51.1 ng/mL 30-[address] [facility] Comment on above: VITAMIN D STATUS 25( [...] Electrophoresis M-Sonny Not observed g/dL Not Observed [facility] Protein Electrophoresis Note See comment . [facility] Comment on above: Protein electrophore sis scan will follow via computer, mail, or rail layer delivery. Performed at: [facility] [employer] [id number] Consultant Nurse: Osiel Combs PhD, Phone: [phone] Protein electrophore sis scan will follow via computer,mail, or rail layer delivery.Performed at: [facility] [employer] [id number] Director: Osiel Combs PhD, Phone: [phone] Protein [Mass/volume] in Ser um or PlasmaOrdered By: Rosa Romo on 12-16-2020 Protein [Mass/Vol] 7.0 g/dL 6.0-8.5 [facility] Serum globulin measurement ( mass/volume)Ordered By: Rosa Romo on 12-16-2020 Globulin (S) [Mass/Vol] 3.1 g/dL 2.2-3.[address] [facility] Serum or plasma albumin/glob ulin mass ratioOrdered By: Rosa Romo on 12-16-2020 Albumin/Globulin [Mass ratio] 1.3 {ratio} 0.7-1.[address] [facility] Serum or plasma alpha 1 glob ulin measurement by electrophoresis (mass/volume)Ordered By: Rosa Romo on 12-16-2020 Alpha 1 globulin Elph [Mass/Vol] 0.2 g/dL 0.0-0.[address] [facility] Serum or plasma alpha 2 glob ulin measurement by electrophoresis (mass/volume)Ordered By: Rosa Romo on 12-16-2020 Alpha 2 globulin Elph [Mass/Vol] 0.7 g/dL 0.4-1.[address] [facility] Serum or plasma beta globuli n measurement by electrophoresis (mass/volume)Ordered By: Rosa Romo on 12-16-2020 Beta globulin Elph [Mass/Vol] 1.1 g/dL 0.7-1.[address] [facility] Serum or plasma calcitriol m easurement (mass/volume)Ordered By: Rosa Romo on 12-16-2020 1,25-dihydroxyvitamin D3 [Mass/Vol] 60.1 pg/mL 19.9-79.[address] [facility] Comment on above: Performed at: [employer] [address] [id number] Consultant Nurse: Mitchell Glynn MD, Phone: [phone] Performed at: [employer] [address] [id number] Director: Mitchell Glynn MD, Phone: [phone] Serum or plasma gamma globul in measurement by electrophoresis (mass/volume)Ordered By: Rosa Romo on 12-16-2020 Gamma globulin Elph [Mass/Vol] 1.0 g/dL 0.4-1.[address] [facility] Serum or plasma intact parat hyroid hormone measurement (mass/volume)Ordered By: Rosa Romo on 12-16-2020 Parathyrin.intact [Mass/Vol] 44.6 pg/mL 12- [facility] TSH DL <= 0.005 mIU/L QnOrde red By: Rosa Romo on 12-16-2020 TSH Qn 1.61 m[IU]/L 0.45-5.[address] [facility] Thyroxine (T4) free [Mass/vo lume] in Serum or PlasmaOrdered By: Rosa Romo on 12-16-2020 Free T4 [Mass/Vol] 0.73 ng/dL 0.61-1.12 [facility] Activated partial thrombopla stin time (aPTT) in platelet poor plasma by coagulation aon 06-15-2020 aPTT Coag (PPP) [Time] 28.4 s 22.9-30.2 [facility] - Coagulationon 0 06-15-2020 PT Coag (PPP) [Time] 11.2 s 9.1-12.0 [facility] No Panel Informationon 06-15 Coagulation Factor VIII Activity 116 % 56-[address] [facility] Platelet poor plasma interna tional normalized ratio (INR) by coagulation assay (relaton 06-15-2020 INR Coag (PPP) [Relative time] 1.1 {INR} 0.9-1.[address] [facility] Comment on above: INR Therapeutic Rang e [...] multimers IB Nom (PPP) See comment . [facility] Comment on above: VWF multimer analysi s [...] developed and its performance characteristics determined by [employer]. It has not been cleared or approved by the Food and Drug Administration. Performed at: [facility] [address] [id number] Consultant Nurse: Sivakumar Mejia MD, Phone: [phone] VWF multimer analysi s demonstrates a normal pattern anddistribution of bands. This is the pattern of multimersthat occurs in normal individuals as well as in those withtype 1 von Willebrand disease (VWD), type 2M and type 2NVWD. Some acquired von Willebrand syndrome cases may yielda normal pattern as well.No additional results available for further interpretation.This test was developed and its performance characteristicsdetermined by [employer]. It has not been cleared or approvedby the Food and Drug Administration.Performed at: [facility] [address] [id number] Director: Sivakumar Mejia MD, Phone: [phone] Von Willebrand factor activi ty measurementon 06-15-2020 vWf ristocetin cofactor act actual/normal Platelet aggregation (PPP) [Relative time] 62 % 50-[address] [facility] Comment on above: Performed at: [facility] [id number] Consultant Nurse: Mitchell Glynn MD, Phone: [phone] Performed at: [facility] [address] [id number] Director: Mitchell Glynn MD, Phone: [phone] Von Willebrand factor antige n measurementon 06-15-2020 vWf Ag Qn (PPP) 86 % 50-[address] [facility] Comment on above: This test was develo ped and its performance characteristics determined by [facility]. It has not been cleared or approved by the Food and Drug Administration. This test was develo ped and its performance characteristicsdetermined by [facility]. It has not been cleared orapproved by the Food and Drug Administration. No Panel Informationon 06-04 BCR/abl See comment [facility] Comment on above: See report. Scanned copy available in EMR. Calreticulin Mutation See comment [facility] Comment on above: See report. Scanned copy available in EMR.See report. Scanned copy available in EMR. --- 06/11/20799 --- Calr previously reported as: See report. Scanned copy available in EMR. See report. Scanned copy available in EMR.See report. Scanned copy available in EMR. --- 06/11/20799 ---Calr previously reported as: See report. Scanned copy available in EMR. JAK2 [id number] See comment [facility] Comment on above: See report. Scanned copy available in EMR.See report. Scanned copy available in EMR. --- 06/11/20799 --- VILLA 2 previously reported as: See report. Scanned copy available in EMR. See report. Scanned copy available in EMR.See report. Scanned copy available in EMR. --- 06/11/20799 ---VILLA 2 previously reported as: See report. Scanned copy available in EMR. MPL Mutation Analysis See comment [facility] Comment on above: See report. Scanned copy available in EMR. C reactive protein [Mass/vol ume] in Serum or Plasmaon 05-31-2020 CRP [Mass/Vol] < 0.5 mg/dL 0.0-1.[address] [facility] Laboratory - Hematology and Cell countson 05-31-2020 WBC (Bld) [#/Vol] 8.9 10*3/uL 4.5-11.0 [facility] Serum homogeneous pattern an tinuclear antibody (STEPHANIE) titeron 05-31-2020 Homogenous nuclear Ab pattern (S) [Titer] N/A [facility] Serum nuclear antibody titer on 05-31-2020 Nuclear Ab (S) [Titer] Negative . [facility] Comment on above: Negative <1:80 Borderline 1:80 Positive >1:80 Performed at: [facility] [address] [place], [place] [id number] Consultant Nurse: Osiel Combs PhD, Phone: [phone] Negative <1:80 Borde rline 1:80 Positive >1:80Performed at: [address] [id number] Director: Osiel Combs PhD, Phone: [phone] Serum or plasma rheumatoid f actor measurement (units/volume)on 05-31-2020 Rheumatoid factor Qn [IU]/mL 0.0-13.9 [facility] Comment on above: Performed at: [facility] [place] [id number] Consultant Nurse: Osiel Combs PhD, Phone: [phone] Performed at: [facility] [address] [id number] Director: Osiel Combs PhD, Phone: [phone] OVER READ - NCon 12-20-2017 OVER READ [...] extra arterial structures are otherwise unremarkable. Normal [facility] Vital Signs Date Time Vital Sign Value Performing Clinician Faci lity 03-21-2023 11:110400 Body temperature 97.8 [degF] DO Zeus Matik Work Phone: [facility] 03-21-2023 11:11040 Body weight 74.38 kg DO Zeus Matik Work Phone: [facility] 03-21-2023 11:11-0400 Diastolic blood pressure 77 mm[Hg] DO Zeus Cristinachak Work Phone: [facility] 03-21-2023 11:11-0400 Heart rate 64 /min DO Zeus Cristinachak Work Phone: [facility] 03-21-2023 11:11-0400 Respiratory rate 16 /min DO Zeus Cristinachak Work Phone: [facility] 03-21-2023 11:11-0400 SaO2% (BldA) [Mass fraction] 98 % DO Zeus Cristinachak Work Phone: [facility] 03-21-2023 11:11-0400 Systolic blood pressure 132 mm[Hg] DO Zeus Vaschak Work Phone: [facility] 03-24-2022 11:17-0400 Body temperature 97.8 [degF] DO Zeus Cristinachak Work Phone: [facility] 03-24-2022 11:17-0400 Body weight 70.76 kg DO Zeus Cristinachak Work Phone: [facility] 03-24-2022 11:17-0400 Diastolic blood pressure 81 mm[Hg] DO Zeus Vaschak Work Phone: [facility] 03-24-2022 11:17-0400 Heart rate 58 /min DO Zeus Vaschak Work Phone: [facility] 03-24-2022 11:17-0400 Respiratory rate 16 /min DO Zeus Vaschak Work Phone: [facility] 03-24-2022 11:17-0400 SaO2% (BldA) [Mass fraction] 100 % DO Zeus Vaschak Work Phone: [facility] 03-24-2022 11:17-0400 Systolic blood pressure 133 mm[Hg] DO Zeus Vaschak Work Phone: [facility] 12-23-2021 14:43-0400 Body temperature 97.8 [degF] DO Zeus Vaschak Work Phone: [facility] 12-23-2021 14:43-0400 Body weight 69.85 kg DO Zeus Vaschak Work Phone: [facility] 12-23-2021 14:43-0400 Diastolic blood pressure 75 mm[Hg] DO Zeus Vaschak Work Phone: [facility] 12-23-2021 14:43-0400 Heart rate 62 /min DO Zeus Vaschak Work Phone: [facility] 12-23-2021 14:43-0400 Respiratory rate 16 /min DO Zeus Vaschak Work Phone: [facility] 12-23-2021 14:43-0400 SaO2% (BldA) [Mass fraction] 99 % DO Zeus Vaschak Work Phone: [facility] 12-23-2021 14:43-0400 Systolic blood pressure 126 mm[Hg] DO Zues Vaschak Work Phone: [facility] 05-31-2020 13:09-0500 Body height 172.72 cm DO Zeus Lamas Work Phone: [facility] Encounters Encounter Date Encounter Type Care Provider Facility Start: 09-12-2023 ambulatory Rosa Demetrius Facility:[facility] Start: 09-11-2023 End: 09-11-2023 ambulatory Mckenzie Perkins Facility:[facility] Start: 09-11-2023 End: 09-11-2023 ambulatory DO Zeus Lamas Work Phone: [facility] Work Phone: Start: 09-11-2023 End: 09-11-2023 Patient encounter procedure DO Zeus Thornek Work Phone: [facility] Work Phone: Start: 06-05-2023 End: 06-05-2023 ambulatory MCKENZIE PERKINS Not Available Start: 03-21-2023 End: 03-21-2023 ambulatory DO Zeus Lamas Work Phone: [facility] Work Phone: Start: 03-21-2023 End: 03-21-2023 Registered Recurring DO Zeus Lamas Work Phone: [facility] Work Phone: Start: 03-19-2023 End: 03-19-2023 ambulatory Zeus Lamas Facility:[facility] Start: 03-19-2023 Encounter for genera l adult medical examination without abnormal findings Zeus Lamas [facility] Start: 03-19-2023 Registered Recurring DO Zeus Matik Work Phone: [facility] Work Phone: Start: 03-19-2023 End: 03-19-2023 ambulatory DO Zeus Matik Work Phone: [facility] Work Phone: Start: 03-19-2023 End: 03-19-2023 Patient encounter procedure DO Zeus Vaschak Work Phone: [facility] Work Phone: Start: 09-08-2022 End: 09-08-2022 ambulatory DO Zeus Lamas Work Phone: [facility] Work Phone: Start: 09-08-2022 End: 09-08-2022 Patient encounter procedure DO Zeus Lamas Work Phone: [facility] Work Phone: Start: 08-31-2022 End: 08-31-2022 ambulatory DO Zeus Lamas Work Phone: [facility] Work Phone: Start: 08-31-2022 End: 08-31-2022 Patient encounter procedure DO Zeus Lamas Work Phone: [facility] Work Phone: Start: 03-24-2022 End: 03-24-2022 ambulatory DO Zeus Lamas Work Phone: [facility] Work Phone: Start: 03-24-2022 End: 03-24-2022 Registered Recurring DO Zeus Lamas Work Phone: [facility] Start: 12-23-2021 End: 12-23-2021 Registered Recurring DO Zeus Lamas Work Phone: [facility] Start: 12-20-2021 End: 12-20-2021 Patient encounter procedure DO Zeus Lamas Work Phone: [facility] Start: 12-20-2017 Patient encounter ZEUS LAMAS Fac [...] Detail Author Start: 12-23-2021 Registered Recurring Thrombocytosis [facility] Start: 09-28-[address] [facility] Start: 09-21-[address] [facility] Start: 08-19-[address] [facility] Comprehensive metabo lic 1999 panel - Serum or Plasma [facility] Work Phone: Comprehensive metabo lic 1999 panel - Serum or Plasma [facility] Comprehensive metabo lic 1999 panel - Serum or Plasma [facility] Payers Date Payer Category Payer Self-pay [id number] 2020 Unknown [id number] 21 [id number] 2020 Unknown [id number] 1960 Unknown [id number] [id number] [id number] Unknown TIFFANY TENORIO Unknown [id number] 2.16.8 [id number] Unknown [id number] 2.16.8 [id number] Unknown [id number] 2.16.8 [id number] Social History Date Type Detail Facility Start: 12-23-2021 End: 03-24-2022 Tobacco smoking status NHIS Never smoked tobacco (finding) [facility] Start: 1960 Sex Assigned At Female F [facility] Clinical Notes 05-31-2020 to 03-24-2022 Note Date & Type Note Facility 03-24-2022 Progress note Note Date/Time March 24, 2022 11:23[facility] at [address] [address] Hem/Onc Follow Up Note - OP Signed Patient: Gloria Allen MR#: [id number] : 1960 Acct:[id number] Age/Sex: 61 / F Type: REG RCR [...] iron stores in one month (f/u with PERSONAL BANKING OFFICER). If platelets < 450,000 at that time, [...] 03/24/22 @ 16:09 by Rosa Romo MD) [place] teeth removed - Family History Family History: [...] % (Auto) 66.6, Lymph % (Auto) 24.9, Logan % (Auto) 5.2, Eos % (Auto) 2.4, Baso % (Auto) 0.9, Neut # (Auto) 5.3, Lymph # (Auto) 2.0, Logan # (Auto) 0.4, Eos # (Auto) 0.2, [...] 4-6 weeks to review iron studies with PERSONAL BANKING OFFICER, 4 month f/u CBC and determine cytoreduction [...] for coordination of care (as documented) and [id number] counseling of patient and/or family. Dictated By: Rosa Romo MD DD/ 21 Signed By: <Electronically signed by MD Rosa Romo> 03/24/22 1615 [facility] Work Phone: [phone]) 537-129307-30-2022 Progress note Author Rosa Romo [facility] December 24, 2021 4:39pm Note Date/Time December 23, 2021 2:[address] [facility] [place] [address] Hem/Onc Follow Up Note - OP Signed Patient: Gloria Allen MR#: [id number] : 1960 Acct:[id number] Age/Sex: 61 / F Type: REG RCR [...] iron stores in one month (f/u with PERSONAL BANKING OFFICER). If platelets < 450,000 at that time, [...] Negative for environmental allergies and food allergies. [facility] - History Attestation statement: The following information was validated with the patient. Source: Old Records Reviewed - Medical History Medical History: Medical History (Last Reviewed 12/24/21 @ 16:34 by Rosa Romo MD) delivery delivered - Surgical History Surgical History: Surgical History (Last Reviewed 12/24/21 @ 16:34 by Rosa Romo MD) [place] teeth removed - Family History Family History: [...] % (Auto) 63.2, Lymph % (Auto) 26.9, Logan % (Auto) 6.3, Eos % (Auto) 2.9, Baso % (Auto) 0.7, Neut # (Auto) 4.0, Lymph # (Auto) 1.7, Logan # (Auto) 0.4, Eos # (Auto) 0.2, [...] 4-6 weeks to review iron studies with PERSONAL BANKING OFFICER, 4 month f/u CBC and determine cytoreduction [...] for coordination of care (as documented) and btbg-ef-lnkf counseling of patient and/or family. Dictated By: Rosa Romo MD DD/ 1448 Signed By: <Electronically signed by MD Rosa Romo> 12/24/21 2350 [facility] Work Phone: 1(935) 828-932204-23-2022 Progress note Author Rosa Romo [facility] September 17, 2021 6:26pm Note Date/Time September 16, 2021 12: 45pm [facility] [place] at [address] [address] Hem/Onc Follow Up Note - OP Signed Patient: Gloria Allen MR#: [id number] : 1960 Acct:[id number] Age/Sex: 61 / F Type: REG RCR [...] iron stores in one month (f/u with PERSONAL BANKING OFFICER). If platelets < 450,000 at that time, [...] Negative for environmental allergies and food allergies. [facility] - History Attestation statement: The following information was validated with the patient. Source: Old Records Reviewed - Medical History Medical History: Medical History (Last Reviewed 09/17/21 @ 18:19 by Rosa Romo MD) delivery delivered - Surgical History Surgical History: Surgical History (Last Reviewed 09/17/21 @ 18:19 by Rosa Romo MD) [place] teeth removed - Family History Family History: [...] 4-6 weeks to review iron studies with PERSONAL BANKING OFFICER, 4 month f/u CBC and determine cytoreduction [...] for coordination of care (as documented) and gnth-wa-dbos counseling of patient and/or family. Dictated By: Rosa Romo MD DD/ 1245 Signed By: <Electronically signed by MD Rosa Romo> 09/17/21 6090 [facility] Work Phone: [phone] 762-451203-25-2022 Procedure [facility] [facility]12-23-2021 Progress note Author Rosa Room [facility] May 19, 2021 7:48pm Note Date/Time May 19, 2021 3:41pm [facility] [address] [address] Hem/Onc Follow Up Note - OP Signed Patient: Gloria Allen MR#: [id number] : 1960 Acct:[id number] Age/Sex: 61 / F Type: REG RCR [...] Negative for environmental allergies and food allergies. [facility] - History Attestation statement: The following information was validated with the patient. Source: Old Records Reviewed - Medical History Medical History: Medical History (Last Reviewed 05/19/21 @ 15:43 by Rosa Romo MD) delivery delivered - Surgical History Surgical History: Surgical History (Last Reviewed 05/19/21 @ 15:43 by Rosa Romo MD) [place] teeth removed - Family History Family History: [...] 08:50 12/16/20 08:50 Outside Labs: Labs at [facility] laboratory: 05/16/2021: White blood cells 6700, hemoglobin [...] noted on monitoring. Transcribed By: ELIZABETH 03/17/21 9844 Dictated By: Zeus Lamas DO 03/16/21 5973 Assessment and Plan - TNM Staging Staging: [...] for coordination of care (as documented) and aypp-vm-dqzq counseling of patient and/or family. Dictated By: Rosa Romo MD DD/ 1534 Signed By: <Electronically signed by MD Rosa Romo> 05/19/211947 [facility] Work Phone: 1([phone]) 831-743510-21-2021 NoteHNO ID: [id number] Author: Nikita Reyes MD Service: ? Author [...] to seek emergency care. She wore a [employer] event monitor for 12 days in January [...] bearing down or coughing Occur 3x/week Wore [employer] event monitor for 12 days in 01/2021. [...] No sudden deaths, atrial fibrillation. 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 , 3 children, 1 grandchild. Lives in [place], [place] Habits: Tobacco: none. Alcohol: 1 drink [...] mg tablet T (more content not included)... [facility]08-03-2021 Progress note Author Rosa Romo [facility] December 28, 2020 7:12am Note Date/Time December 27, 2020 3:[address] [facility] [place] [address] Hem/Onc Follow Up Note - OP Signed Patient: Gloria Allen MR#: [id number] : 1960 Acct:[id number] Age/Sex: 60 / F Type: REG RCR Copies to: Zeus Lamas DO~ Subjective Date/Time of Service: Date of Service: 12/27/2020 Time of Service: 15:46 Chief Complaint: Patient is here today for a 3 month follow up appointment with Essential Thrombocytosis and to go over labs. No new concerns. HPI: 12/27/2020: Gloira has no new symptoms--no thrombosis history. Platelet [...] 12/28/20 @ 07:08 by Rosa Romo MD) [place] teeth removed - Family History Family History: [...] for coordination of care (as documented) and tkut-yg-uemq counseling of patient and/or family. Dictated By: Rosa Romo MD DD/ 1545 Signed By: <Electronically signed by MD Rosa Romo> 12/28/20 0712 [facility] Work Phone: 1(809) 255-578804-20-2021 Progress note Author Rosa Romo [facility] September 14, 2020 7:40pm Note Date/Time September 13, 2020 4:[address] [facility] [place] [address] Hem/Onc Follow Up Note - OP Signed Patient: Gloria Allen MR#: [id number] : 1960 Acct:[id number] Age/Sex: 60 / F Type: REG RCR [...] Negative for environmental allergies and food allergies. [facility] - History Attestation statement: The following information was validated with the patient. Source: Old Records Reviewed - Medical History Medical History: Medical History (Last Reviewed 09/14/20 @ 19:34 by Rosa Romo MD) delivery delivered - Surgical History Surgical History: Surgical History (Last Reviewed 09/14/20 @ 19:34 by Rosa Romo MD) [place] teeth removed - Family History Family History: [...] % (Auto) 70.2, Lymph % (Auto) 19.6, Logan % (Auto) 7.3, Eos % (Auto) 2.3, Baso % (Auto) 0.6, Neut # (Auto) 6.0, Lymph # (Auto) 1.7, Logan # (Auto) 0.6, Eos # (Auto) 0.2, [...] for coordination of care (as documented) and cbib-qv-crdf counseling of patient and/or family. Dictated By: Rosa Romo MD DD/ 2253 Signed By: <Electronically signed by MD Rosa Romo> 09/14/201939 [facility] Work Phone: 1(274) 311-523701-18-2021 Progress note Author Rosa Romo [facility] June 14, 2020 4:10pm Note Date/Time June 14, 2020 3 :26pm [facility] [place] [id number] Hem/Onc Follow Up Note - OP Signed Patient: Gloria Allen MR#: [id number] : 1960 Acct:[id number] Age/Sex: 60 / F Type: REG RCR [...] 06/14/20 @ 15:59 by Rosa Romo MD) [place] teeth removed - Family History Family History: [...] for coordination of care (as documented) and mcym-sr-zmum counseling of patient and/or family. Dictated By: Rosa Romo MD DD/ 1525 Signed By: <Electronically signed by MD Rosa Romo> 06/14/20 1610 [facility] Work Phone: 1([phone]) 159-999101-04-2021 Consult note Author Rosa Romo [facility] May 31, 2020 8:56pm Note Date/Time May 31, 2020 1: 29pm [facility] [place] [id number] Hem/Onc Consult Note - OP Signed Patient: Gloria Allen MR#: [id number] : 1960 Acct:[id number] Age/Sex: 60 / F Type: REG RCR [...] address epigastric pain with you in followup. [facility] - Medical History Medical History: Medical History (Last Reviewed 05/31/20 @ 20:40 by Rosa Romo MD) delivery delivered - Surgical History Surgical History: Surgical History (Last Reviewed 05/31/20 @ 20:40 by Rosa Romo MD) [place] teeth removed - Family History Family History: [...] for coordination of care (as documented) and czjx-zp-taab counseling of patient and/or family. Dictated By: Rosa Romo MD DD/ 1329 Signed By: <Electronically signed by MD Rosa Romo> 05/31/202055 [facility] Work Phone: Evaluation note* Diagnosis Onset Date Resolution Status Thrombocytosis acute Epigastric pain chronic Essential thrombocytosis chr onic Iron deficiency anemia chron ic [facility] Work Phone: Evaluation noteNo assessment information available [facility] Work Phone: Evaluation note* Diagnosis Onset Date Resolution Status Thrombocytosis acute Epigastric pain chronic Essential thrombocytosis chr onic Iron deficiency anemia resol chelly [facility] Work Phone: Progress note Author Rosa Romo [facility] December 24, 2021 4:39pm Note Date/Time December 23, 2021 2:[address] [facility] [place] at [address] [address] Hem/Onc Follow Up Note - OP Signed Patient: Gloria Allen MR#: [id number] : 1960 Acct:[id number] Age/Sex: 61 / F Type: REG RCR [...] iron stores in one month (f/u with PERSONAL BANKING OFFICER). If platelets < 450,000 at that time, [...] Negative for environmental allergies and food allergies. [facility] - History Attestation statement: The following information was validated with the patient. Source: Old Records Reviewed - Medical History Medical History: Medical History (Last Reviewed 12/24/21 @ 16:34 by Rosa Romo MD) delivery delivered - Surgical History Surgical History: Surgical History (Last Reviewed 12/24/21 @ 16:34 by Rosa Romo MD) [place] teeth removed - Family History Family History: [...] % (Auto) 63.2, Lymph % (Auto) 26.9, Logan % (Auto) 6.3, Eos % (Auto) 2.9, Baso % (Auto) 0.7, Neut # (Auto) 4.0, Lymph # (Auto) 1.7, Logan # (Auto) 0.4, Eos # (Auto) 0.2, [...] 4-6 weeks to review iron studies with PERSONAL BANKING OFFICER, 4 month f/u CBC and determine cytoreduction [...] for coordination of care (as documented) and iaqm-tx-aclx counseling of patient and/or family. Dictated By: Rosa Romo MD DD/ 1448 Signed By: <Electronically signed by MD Rosa Romo> 12/24/21 2161 [facility] Work Phone: Progress note Author Rosa Romo [facility] March 24, 2022 4:15pm Note Date/Time March 24, 2022 1 1:23am [facility] [place] [address] Hem/Onc Follow Up Note - OP Signed Patient: Gloria Allen MR#: [id number] : 1960 Acct:[id number] Age/Sex: 61 / F Type: REG RCR [...] iron stores in one month (f/u with PERSONAL BANKING OFFICER). If platelets < 450,000 at that time, [...] Negative for environmental allergies and food allergies. [facility] - History Attestation statement: The following information was validated with the patient. Source: Old Records Reviewed - Medical History Medical History: Medical History (Last Reviewed 03/24/22 @ 16:09 by Rosa Romo MD) delivery delivered - Surgical History Surgical History: Surgical History (Last Reviewed 03/24/22 @ 16:09 by Rosa Romo MD) [place] teeth removed - Family History Family History: [...] % (Auto) 66.6, Lymph % (Auto) 24.9, Logan % (Auto) 5.2, Eos % (Auto) 2.4, Baso % (Auto) 0.9, Neut # (Auto) 5.3, Lymph # (Auto) 2.0, Logan # (Auto) 0.4, Eos # (Auto) 0.2, [...] 4-6 weeks to review iron studies with PERSONAL BANKING OFFICER, 4 month f/u CBC and determine cytoreduction [...] for coordination of care (as documented) and obby-zn-jgpe counseling of patient and/or family. Dictated By: Rosa Romo MD DD/ 1122 Signed By: <Electronically signed by MD Rosa Romo> 03/24/22 1613 [facility] Work Phone: Summary Purpose Family History [...] content) DATE CREATED AUTHOR 12/21/2017 [facility] DATE CREATED AUTHOR AUTHOR'S ORGANIZ ATION 05/16/2021 [facility] DATE CREATED AUTHOR AUTHOR'S ORGANIZ ATION 06/30/2021 [facility] DATE CREATED AUTHOR AUTHOR'S ORGANIZ ATION 06/06/2023 [facility] DATE CREATED AUTHOR AUTHOR'S ORGANIZ ATION 09/14/2023 [facility] Care Teams (unrecognized sec [...] BE BASED ON THE PRIMARY CLINICAL RECORDS. [facility]. provides no warranty or guarantee of the accuracy or completeness of information in this document.
== END 2023-11-13 13:17 | disposition home or self-care (01) ==
LOC: VC 13:39
PROVIDERS: PCP Radiology Diagnostic Radiology; Visit Provider Radiology Diagnostic Radiology
DX: I80.02 Phlebitis and thrombophlebitis of superficial vessels of left lower extremity (principal)
CPT/HCPCS: 93971; G0463

== ENCOUNTER 2023-12-04 10:57 | Outpatient (OUT) | payer OTHER, SELFPAY ==
--- NOTE | 2023-12-04 08:07 | V.VEINS.HP ---
Vital Signs 12/04/23 08:10 Height 5 ft 8 in Weight 71.214 kg BMI 23.9 BP 116/78 BP Location Right Brachial BP Position Sitting BP Cuff Size Adult BP Source Manual Cuff Respiration 16 Pulse 63 Pulse Oximetry (%) 99 Oxygen Delivery Method Room Air Varicose Veins Corbin Morejon MD personally performed the services described in this documentation, as scribed by Evie Hollis RN in my presence and it is both accurate and complete. IEvie RN, am scribing for, and in the presence of, Dr. Corbin Shepherd and in the presence of the patient. thigh: bilateral, knee: bilateral, calf: bilateral, ankle: bilateral and cameron: bilateral aching and cramping 3 2 years Worsened in recent months: Yes standing and sitting bed rest, elevating extremities and compression stockings History of lower extremity trauma: No Superficial thrombophlebitis: No Family history of varicose veins: yes Has patient had previous lower extremity venous surgery: No Patient has previously received the following treatment(s) for lower extremity varicose veins: Reports none Does patient have a history of : yes Does patient intend to have future pregnancies: no Has patient had lower extremity venous scan with relux testing: Yes Support hose used: Yes Problems walking or doing physical activity: Yes How does it affect you: Symptoms have worsened in the past 2 years Do you walk much: Yes Do you stand much: Yes Medication compliance: good Large amounts of Vitamin K: No Review of Systems ROS Narrative Corbin Morejon MD personally performed the services described in this documentation, as scribed by Evie Hollis RN in my presence and it is both accurate and complete. Evie Morejon RN, am scribing for, and in the presence of, Dr. Corbin Shepherd and in the presence of the patient. Status of ROS 10 or more systems reviewed and unremarkable except as noted in history and below Cardiovascular Reports: edema and swelling of feet/ankles Musculoskeletal Reports: extremity pain, extremity swelling and muscle cramps [facility] Medical History (Updated 12/04/23 @ 08:17 by Evie Hollis RN) Hypercoagulable state ?D68.59 - Other primary thrombophilia (ICD-10) Varicose veins of bilateral lower extremities with pain ?I83.813 - Varicose veins of bilateral lower extremities with pain (ICD-10) Surgical History (Updated 12/04/23 @ 08:17 by Evie Hollis RN) H/O dilation and curettage ?Z98.890 - Other specified postprocedural states (ICD-10) Previous section ?Z98.891 - History of uterine scar from previous surgery (ICD-10) Family History (Updated 12/04/23 @ 08:18 by Evie Hollis RN) Aunt Varicose veins of bilateral lower extremities with pain Social History (Updated 12/04/23 @ 08:19 by Evie Hollis RN) Within the past year, how often did you have a drink containing alcohol: monthly or less Smoking status: Never smoker Non-prescribed substance use: denies use Meds Home Medications and Allergies Home Medications ?Medication ?Instructions ?Recorded ?Confirmed ?Type aspirin 81 mg tablet,delayed 81 mg PO DAILY 12/04/23 12/04/23 History release (Adult Aspirin Regimen) cholecalciferol (vitamin D3) 25 25 mcg PO DAILY 12/04/23 12/04/23 History mcg (1,000 unit) capsule Allergies Allergy/AdvReac Type Severity Reaction Status Date / Time No Known Drug Allergies Allergy Verified 09/14/23 15:20 Exam Narrative Exam Narrative: ICorbin MD personally performed the services described in this documentation, as scribed by Evie Hollis RN in my presence and it is both accurate and complete. IEvie RN, am scribing for, and in the presence of, Dr. Corbin Shepherd and in the presence of the patient. Constitutional Documenting provider has reviewed patient's vital signs: yes Common normals: oriented x3 Nutritional appearance: overweight Lymph Lymphatic: no lymphedema noted Cardio Peripheral pulses: posterior tibial pulses present and dorsalis pedis pulses present Extremity General: calf tenderness, edema and other findings Right lower extremity: lower leg Right lower leg: inspection and palpation Left lower extremity: lower leg Left lower leg: inspection and palpation Neuro Common normals: oriented x3 Assessment and Plan Assessment and Plan (1) Varicose veins of bilateral lower extremities with pain: Plan leg microfoam chemical ablation/Varithena: Risks and benefits of the procedure were discussed at length and informed written consent was obtained.? Time-out procedure was performed and the correct patient and procedure were confirmed.? Staff present during time-out: Evie Hollis RN and Corbin Shepherd MD.? Patient prepped and procedure performed in usual sterile fashion.? Patient was placed in Trendelenburg prior to Polidocanol/Varithena injections. Sclerosing Agent:?? 4cc 1% Polidocanol/Varithena Site Injected: right leg Number of Injections:? 6cc into 7mm distal right GSV lower leg 4cc into 4mm right distal medial thigh 2cc into right lateral knee 3mm varicose vein 2cc into right lateral knee varicose vein 2cc into 3mm vein right posterior mid calf varicose vein The patient tolerated the procedure well without complication.? Hemostasis was obtained and thigh-high compression stocking was applied with foam pads.? Instructed patient to wear stocking for at least 96 hours and sleep with it and only remove for showering.? The patient was instructed to? wear stocking for 2 weeks.? Patient verbalizes understanding and states they will comply.? Patient was given post-procedure instructions. Patient was discharged in good condition.? Scheduled to undergo limited venous ultrasound and? exam on 12/11/23. ICorbin MD personally performed the services described in this documentation, as scribed by Evie Hollis RN in my presence and it is both accurate and complete. Evie Morejon RN, am scribing for, and in the presence of, Dr. Corbin Shepherd and in the presence of the patient. Procedures Procedure Note Procedure: Varithena/microfoam chemical ablation right leg 12/04/23 Surgeon: Corbin Shepherd
[2023-12-04 08:10] VITALS: BP 116/78; PULSE 63; O2SAT 99; BMI 23.9
--- NOTE | 2023-12-04 08:23 | W.VEIN ---
Discharge Plan Discharge Disposition: Home, Self-Care Outpatient Diagnostics: [facility] Facility EST LMTD (Routine) Timeframe: 2 Weeks Facility: [facility] - Location: [facility] Ordered By: Corbin Shepherd VC EXT Venous RT LMTD (Routine) Timeframe: 2 Weeks Facility: [facility] - Location: Vein Center Ordered By: Corbin Shepherd Follow Up Appointments: 12/11/23 Print Language: Slovenian Discharge Date/Time: 12/04/23 11:55
--- NOTE | 2023-12-04 11:07 | VEIN_ITS ---
The [address] [address] Patient Name: JONA ALLEN MRN: [id number] date: 1960 Sex: F Assigned Patient Location: Current Patient Location: Accession/Order Number: [id number] Exam Date: 12/04/2023 11:13 Report Date: 12/04/2023 12:18 At the request of: HEMANT MCHUGH Procedure: VC INJ Foam Sclerosant WUS SHOP ESTIMATOR PROCEDURE: VC INJ Foam Sclerosant WUS SHOP ESTIMATOR, right leg COMPARISON: None. HISTORY: Pain due to varicose veins of bilateral legs I83.813 Pre-operative Diagnosis: CEAP class C2 venous insufficiency with pain, tenderness, edema and incompetent right saphenous and varicose vein(s), chronic venous insufficiency right leg secondary to venous incompetence Post-operative Diagnosis: CEAP class C2 venous insufficiency with pain, tenderness, edema and incompetent right saphenous and varicose vein(s), chronic venous insufficiency right leg secondary to venous incompetence Procedure Performed: 1. Ultrasound-guided microfoam chemical ablation with Varithenaregistered 2. Intraoperative ultrasound guidance Indications for Procedure: 63 year old female. Symptoms including pain for many years despite conservative medical therapy including medical compression stockings, exercise and analgesics. Prior procedures include endovenous laser ablation. Multiple incompetent varicosities of the right leg. Duplex scan showed reflux and enlarged diameters up to 7 mm. The patient underwent informed consent including management options where the complications of infection, bleeding, pain, and skin injury were discussed. Particular attention was spent discussing thrombus extension and deep vein thrombosis as well as the possibility of pulmonary embolus and treatment with oral or injectable blood thinners. Procedure: The patient walked to the procedure room. All applicable staff donned appropriate apparel. A procedure timeout was performed to confirm correct patient, correct extremity, correct procedure, and correct room set-up including presence of all applicable supplies, devices, and drugs. A duplex ultrasound, performed by myself confirmed the location and incompetence of branch saphenous varicosities and their course was marked on the skin together with the dilated tributaries. The extent of treatment of the vein and the associated varicosities was determined through ultrasound mapping. The skin was prepped and then punctured with a butterfly needle and advanced under ultrasound guidance. The Varithenaregistered canister was activated and the canister was primed and purged as required in the instructions for use. Varithenaregistered was drawn into a sterile syringe. The following injections were made: 6 cc injected into a 7 mm distal right great saphenous vein, right distal medial lower leg 4 cc injected into a 4 mm varicose vein right distal medial thigh 2 cc injected the right lateral knee 3 mm varicose vein 2 cc injected into a right lateral knee to 3 mm varicose vein 2 cc injected into a 3 mm vein right posterior mid calf varicose vein Varithenaregistered was slowly administered at 0.5-1.0 cc/second with close observation by ultrasound of its course in the vessels. Total volume utilized was: 16cc. Following administration of Varithenaregistered the leg was elevated and the patient was asked to repeatedly dorsiflex the ankle to limit flow of Varithenaregistered into perforating veins. Once appropriate spasm had been confirmed in the treated veins, the vascular catheter was removed from the leg and light pressure was applied over the puncture site for hemostasis. The common femoral and deep superficial veins were then evaluated for flow and compressibility prior to dressing placement. The lower extremity was kept elevated at 45 degrees above the horizontal and cording material was applied over the saphenous segments and tributaries to allow for eccentric compression over the target vessels including the targeted saphenous vein(s). A multilayer dressing was applied consisting of foam pads, coban and thigh-high 20-30 mm Hg compression elastic support hose were placed on the patient. The leg was lowered only after compression had been applied and the patient was immediately ambulatory. The patient ambulated 10 minutes under supervision and was without apparent concerns at time of release. Post-care instructions include advising patient to keep post-treatment bandages in place and dry for 48 hours, avoid extended periods of inactivity, avoid heavy exercise for one week, wear compression stockings on the treated leg continuously for two weeks, to walk daily for 10 minutes over the next month. The patient was instructed to take an anti-inflammatory medicine as needed and to follow up for color duplex scan of the Saphenous veins, the treated branch saphenous varicosities, the adjacent deep veins, and additional treatment within 7 days. PERSONNEL: Evie Mohr RN Electronically authenticated by: HEMANT MCHUGH Date: 12/04/2023 12:18
== END 2023-12-04 11:55 | disposition home or self-care (01) ==
LOC: VC 11:05
PROVIDERS: PCP Radiology Diagnostic Radiology; Visit Provider Radiology Diagnostic Radiology
DX: I83.813 Varicose veins of bilateral lower extremities with pain (principal)
CPT/HCPCS: 36466

== ENCOUNTER 2023-12-11 08:01 | Outpatient (OUT) | payer OTHER, SELFPAY ==
[2023-12-11 08:01] VITALS: BP 118/74; PULSE 62; O2SAT 99; BMI 23.8
--- NOTE | 2023-12-11 08:01 | VEINCLINIC_ITS ---
Vital Signs 12/11/23 08:01 Height 5 ft 8 in Weight 71 kg BMI 23.8 BP 118/74 BP Location Right Brachial BP Position Sitting BP Cuff Size Adult BP Source Manual Cuff Respiration 16 Pulse 62 Pulse Oximetry (%) 99 Varicose Veins Corbin Morejon MD personally performed the services described in this documentation, as scribed by Evie Castillo RVT, RDMS in my presence and it is both accurate and complete. I, Evie Castillo RVT, RDMS, am scribing for, and in the presence of, Dr. Corbin Shepherd and in the presence of the patient. thigh: bilateral, knee: bilateral, calf: bilateral, ankle: bilateral and cameron: bilateral aching and cramping 3 2 years Worsened in recent months: Yes standing and sitting bed rest, elevating extremities and compression stockings History of lower extremity trauma: No Superficial thrombophlebitis: No Family history of varicose veins: yes Has patient had previous lower extremity venous surgery: No Patient has previously received the following treatment(s) for lower extremity varicose veins: Reports none Does patient have a history of : yes Does patient intend to have future pregnancies: no Has patient had lower extremity venous scan with relux testing: Yes Support hose used: Yes Problems walking or doing physical activity: Yes How does it affect you: Symptoms have worsened in the past 2 years Do you walk much: Yes Do you stand much: Yes Medication compliance: good Large amounts of Vitamin K: No Review of Systems ROS Narrative Corbin Morejon MD personally performed the services described in this documentation, as scribed by Evie Castillo RVT, RDMS in my presence and it is both accurate and complete. IEvie RVT, RDMS, am scribing for, and in the presence of, Dr. Corbin Shepherd and in the presence of the patient. Status of ROS 10 or more systems reviewed and unremark able except as noted in history and below [facility] Medical History (Updated 12/11/23 @ 08:04 by Evie Castillo) Phlebitis and thrombophlebitis of superficial vessels of right lower extremity ?I80.01 - Phlebitis and thrombophlebitis of superficial vessels of right lower extremity (ICD-10) Hypercoagulable state ?D68.59 - Other primary thrombophilia (ICD-10) Varicose veins of bilateral lower extremities with pain ?I83.813 - Varicose veins of bilateral lower extremities with pain (ICD-10) Surgical History (Updated 12/04/23 @ 08:17 by Evie Hollis RN) H/O dilation and curettage ?Z98.890 - Other specified postprocedural states (ICD-10) Previous section ?Z98.891 - History of uterine scar from previous surgery (ICD-10) Family History (Updated 12/04/23 @ 08:18 by Evie Hollis RN) Aunt Varicose veins of bilateral lower extremities with pain Social History (Updated 12/04/23 @ 08:19 by Evie Hollis RN) Within the past year, how often did you have a drink containing alcohol: monthly or less Smoking status: Never smoker Non-prescribed substance use: denies use Meds Home Medications and Allergies Home Medications ?Medication ?Instructions ?Recorded ?Confirmed ?Type aspirin 81 mg tablet,delayed 81 mg PO DAILY 12/04/23 12/04/23 History release (Adult Aspirin Regimen) cholecalciferol (vitamin D3) 25 25 mcg PO DAILY 12/04/23 12/04/23 History mcg (1,000 unit) capsule Allergies Allergy/AdvReac Type Severity Reaction Status Date / Time No Known Drug Allergies Allergy Verified 09/14/23 15:20 Exam Narrative Exam Narrative: ICorbin MD personally performed the services described in this documentation, as scribed by Evie Castillo RVT, RDMS in my presence and it is both accurate and complete. IEvie RVT, RDMS, am scribing for, and in the presence of, Dr. Corbin Shepherd and in the presence of the patient. Constitutional Documenting provider has reviewed patient's vital signs: yes Common normals: oriented x3 Lymph Lymphatic: no lymphedema noted Cardio Common normals: regular rate Rate: regular rate Peripheral pulses: posterior tibial pulses present and dorsalis pedis pulses present Extremity Common normals: normal capillary refill Neuro Common normals: oriented x3 Results Imaging Venous US: Radiologist's impression: The ultrasound demonstrates Varithena induced thrombus visualized at distal GSV, dist/med thigh, prox/med calf, and lateral knee. Assessment and Plan Assessment and Plan (1) Varicose veins of bilateral lower extremities with pain: (2) Phlebitis and thrombophlebitis of superficial vessels of right lower extremity: Plan Patient in today for follow up ultrasound of right lower extremity following treatment of Varithena/microfoam completed on 12/04/23. The plan is for the patient to return for sclerotherapy. ICorbin MD personally performed the services described in this documentation, as scribed by Evie Castillo RVT, RDMS in my presence and it is both accurate and complete. Evie Morejon RVT, RDMS, am scribing for, and in the presence of, Dr. Corbin Shepherd and in the presence of the patient.
--- NOTE | 2023-12-11 08:03 | VEIN_ITS ---
Patient Name: JONA ALLEN MR#: [id number] : 1960 Exam Date: 12/11/2023 Ordering Doctor: DR CORBIN SHEPHERD M.D. RADIOLOGY REPORT PROCEDURE: VC EXT VENOUS RT LMTD COMPARISON: VC EXT VENOUS RT LMTD, 10/17/2023. VC EXT VENOUS RT LMTD, 09/25/2023. INDICATIONS: I80.01 - Phlebitis and thrombophlebitis of superficial ve... TECHNIQUE: Lower extremity lopez scale and Duplex Doppler evaluation of the deep venous system from the inguinal ligament through the calf veins. FINDINGS: REGION: Right lower extremity. THROMBI: Negative for DVT. Varithena induced thrombus visualized at distal GSV, prox/med calf, dist/med thigh, and lateral knee. COMPRESSIBILITY: Non-compressible segments corresponding to thrombus FLOW: Areas of no flow corresponding to thrombus CONCLUSION: Post ablation occlusion of treated right leg varicose veins. No deep vein thrombus Dictated by: Corbin Shepherd MD on 12/11/2023 at 11:06 Approved by: Corbin Shepherd MD on 12/11/2023 at 11:13
--- NOTE | 2023-12-11 08:03 | VEIN_ITS ---
Patient Name: JONA ALLEN MR#: [id number] : 1960 Exam Date: 12/11/2023 Ordering Doctor: DR CORBIN SHEPHERD M.D. RADIOLOGY REPORT PROCEDURE: [facility] EST LMTD VEIN CENTER - OFFICE VISIT FOLLOW UP COMPARISON: [facility] EST LMTD, 11/13/2023. [facility] EST LMTD, 10/17/2023. PROGRESS NOTES: The patient reports mild bilateral tenderness following micro foam chemical ablation of right leg incompetent varicose veins. The patient complains of pain left greater than right related to thrombosed varicose veins. The patient has worn her compression stockings. The patient did not require oral analgesics. Physical exam demonstrates multiple thrombosed varicose veins with mild hemosiderin staining, left greater than right. The patient did have some tenderness on palpation. No erythema or warmth to suggest cellulitis or thrombophlebitis. No active ulceration. Review of the ultrasound performed the same day demonstrates occlusive thrombus extending throughout the treated right leg varicose veins. No residual varicose veins are observed. No deep vein thrombus. The patient expressed a desire to proceed with treatment of bilateral reticular and spider veins with injection sclerotherapy. VEIN/[facility] EST LMTD IMPRESSION: 1. Successful ablation of treated incompetent right leg varicose veins 2. Persistent bilateral reticular and spider veins. PLAN: Injection sclerotherapy of reticular and spider veins Nurse notes, history and physical were reviewed and confirmed, see attached forms. The nurse was present throughout the physical exam and consultation Dictated by: Corbin Shepherd MD on 12/11/2023 at 09:56 Approved by: Corbin Shepherd MD on 12/11/2023 at 09:58
--- OUTSIDE RECORDS SUMMARY | 2023-12-11 08:19 | XMS_ITS | CCD ---
Author Organization [facility] Care Team Providers Care Civilian Technician Name Role Phone ZEUS LAMAS Unavailable Unavailable ZEUS LAMAS Unavailable Unavailable ZEUS LAMAS Unavailable Unavailable DO Zeus Lamas Primary Care Provider DO Zeus Lamas Attending Provider [phone] DO Zeus Lamas Referring Provider [phone] MD Rosa Romo Attending Provider DO Zeus Lamas Primary Care Provider DO Zeus Lamas Referring Provider [phone] MD Rosa Romo Attending Provider DO Zeus Lamas Primary Care Provider DO Mckenzie Perkins Attending Provider DO Zeus Lamas Primary Care Provider DO Zeus Lamas Attending Provider DO Zeus Lamas Referring Provider MD Rosa Romo Attending Provider [phone] DO Zeus Lamas Referring Provider [phone] MD Rosa Romo Attending Provider [phone] MKCENZIE PERKINS Attending Unavailable DO Zeus Lamas Primary Care Provider [phone] DO Mckenzie Perkins Attending Provider [phone] Zeus Lamas Admitting Unavailable Zeus Lamas Primary [...] (Bld) [#/Vol] 0.1 10*3/uL Normal 0.0-0.2 [facility] Comment on above: Result Comment: PERF ORMED BY: [place] [address] PATHOLOGIST FARM LOAN INSPECTOR MIGUEL LARSEN M.D. Performed By: #### C BC, CMP #### [address] Basophils/100 WBC (Bld) 1.0 % Normal . [facility] Comment on above: Performed By: #### C BC, CMP #### [address] Eosinophils (Bld) [#/Vol] 0.3 10*3/uL Normal 0.0-0.45 [facility] Comment on above: Performed By: #### C BC, CMP #### [place] [address] Eosinophils/100 WBC (Bld) 4.8 % Normal . [facility] Comment on above: Performed By: #### C BC, CMP #### [address] Erythrocyte distribution width (RBC) [Ratio] 16.0 % High 11.9-15.3 [facility] Comment on above: Performed By: #### C BC, CMP #### [address] Hematocrit (Bld) [Volume fraction] 42.6 % Normal 34.0-46.4 [facility] Comment on above: Performed By: #### C BC, CMP #### [address] Hemoglobin (Bld) [Mass/Vol] 13.8 g/dL Normal 11.8-15.4 [facility] Comment on above: Performed By: #### C BC, CMP #### [address] Lymphocytes (Bld) [#/Vol] 2.3 10*3/uL Normal 1.00-4.8 [facility] Comment on above: Performed By: #### C BC, CMP #### [address] Lymphocytes/100 WBC (Bld) 32.7 % Normal . [facility] Comment on above: Performed By: #### C BC, CMP #### [address] MCH (RBC) [Entitic mass] 28.9 pg Normal 24.7-34.3 [facility] Comment on above: Performed By: #### C BC, CMP #### [address] MCV (RBC) [Entitic vol] 89.0 fL Normal 80-100 [facility] Comment on above: Performed By: #### C BC, CMP #### [address] Mean Corpuscular HGB Conc 32.5 g/dL Normal 32.0-35.0 [facility] Comment on above: Performed By: #### C BC, CMP #### [address] Monocytes (Bld) [#/Vol] 0.5 10*3/uL Normal 0.0-0.8 [facility] Comment on above: Performed By: #### C BC, CMP #### [address] Monocytes/100 WBC (Bld) 7.2 % Normal . [facility] Comment on above: Performed By: #### C BC, CMP #### [address] Neutrophils (Bld) [#/Vol] 3.9 10*3/uL Normal 1.8-7.7 [facility] Comment on above: Performed By: #### C BC, CMP #### [address] Neutrophils/100 WBC (Bld) 54.3 % Normal . [facility] Comment on above: Performed By: #### C BC, CMP #### [address] NRBC% 0.0 /100{WBC} Normal 0-0.5 [facility] Comment on above: Performed By: #### C BC, CMP #### [address] Platelet mean volume (Bld) [Entitic vol] 8.2 fL Normal 6.3-10.7 [facility] Comment on above: Performed By: #### C BC, CMP #### [address] Platelets (Bld) [#/Vol] 599 10*3/uL High 150-450 [facility] Comment on above: Performed By: #### C BC, CMP #### [address] RBC (Bld) [#/Vol] 4.78 10*6/uL Normal 3.60-5.00 [facility] Comment on above: Performed By: #### C BC, CMP #### [address] WBC (Bld) [#/Vol] 7.1 10*3/uL Normal 3.8-11.6 [facility] Comment on above: Performed By: #### C BC, CMP #### [address] Comprehensive Metabolic Pane douglas 09-12-2023 Albumin [Mass/Vol] 4.8 g/dL Normal 3.5-5.7 [facility] Comment on above: Performed By: #### C BC, CMP #### [address] Albumin/Globulin [Mass ratio] 2.2 {ratio} Normal [facility] Comment on above: Performed By: #### C BC, CMP #### [address] ALP [Catalytic activity/Vol] 56 U/L Normal 34-104 [facility] Comment on above: Performed By: #### C BC, CMP #### [address] ALT [Catalytic activity/Vol] 15 U/L Normal 7-52 [facility] Comment on above: Performed By: #### C BC, CMP #### [address] Anion gap [Moles/Vol] 9.3 mmol/L Normal 6.0-15.0 [facility] Comment on above: Performed By: #### C BC, CMP #### [address] AST [Catalytic activity/Vol] 21 U/L Normal 13-39 [facility] Comment on above: Performed By: #### C BC, CMP #### [address] Bilirubin [Mass/Vol] 1.2 mg/dL High 0.3-1.0 [facility] Comment on above: Performed By: #### C BC, CMP #### [address] Calcium [Mass/Vol] 10.3 mg/dL Normal 8.6-10.3 [facility] Comment on above: Performed By: #### C BC, CMP #### [address] Chloride [Moles/Vol] 103 mmol/L Normal 98-107 [facility] Comment on above: Performed By: #### C BC, CMP #### [address] CO2 [Moles/Vol] 32.3 mmol/L High 21.0-31.0 [facility] Comment on above: Performed By: #### C BC, CMP #### [address] Creatinine [Mass/Vol] 0.82 mg/dL Normal 0.60-1.20 [facility] Comment on above: Performed By: #### C BC, CMP #### [address] Creatinine Clr Calc Pharmacy 70.84 Normal [facility] Comment on above: Result Comment: PERF ORMED BY: [place] [address] PATHOLOGIST FARM LOAN INSPECTOR MIGUEL LARSEN M.D. Performed By: #### C BC, CMP #### [address] GFR/1.73 sq M.predicted MDRD (S/P/Bld) [Vol rate/Area] mL/min/{1.73_m2} Normal [facility] Comment on above: Performed By: #### C BC, CMP #### [address] Globulin (S) [Mass/Vol] 2.2 g/dL Normal [facility] Comment on above: Performed By: #### C BC, CMP #### [address] [place] [address] [place] Glucose [Mass/Vol] 77 mg/dL Normal 70-100 [facility] Comment on above: Result Comment: [facility] Glucose Reference Range is dependent on time and content of last meal. Glucose of more than 200 mg/dL in a nonstressed, ambulatory subject supports the diagnosis of Diabetes Mellitus. ADA recommended reference range Performed By: #### C BC, CMP #### [facility] [address] Potassium [Moles/Vol] 4.6 mmol/L Normal 3.5-5.1 [facility] Comment on above: Performed By: #### C BC, CMP #### [facility] [address] Protein [Mass/Vol] 7.0 g/dL Normal 6.4-8.9 [facility] Comment on above: Performed By: #### C BC, CMP #### [address] Sodium [Moles/Vol] 140 mmol/L Normal 136-145 [facility] Comment on above: Performed By: #### C BC, CMP #### [address] Urea nitrogen [Mass/Vol] 18 mg/dL Normal 7-25 [facility] Comment on above: Performed By: #### C BC, CMP #### [address] MM screening mammo BI w/CADo n 09-11-2023 MM screening mammo BI w/CAD [facility] [place] [address] [place] [address] Mammography Report Signed Patient: Gloria Allen MR#: [id number] [birth year] : 1960 Acct:[id number] Age/Sex: 63 / F ADM Date: 09/11/23 Loc: [place] Room: Type: [facility] Attending Dr: Mckenzie Perkins DO Copies [...] Diana Maots M.D.09/11/2023 1:30 PM Dictation Location: [facility] Transcribed By: CHRISTOFER 09/11/23 1330 Dictated By: Diana Matos MD 09/11/23 1327 Signed By: 09/11/23 1330 Normal [facility] Alanine aminotransferase [En zymatic activity/volume] in Serum or PlasmaOrdered By: Rosa Romo on 03-19-2023 ALT [Catalytic activity/Vol] 13 U/L 7-52 [facility] Albumin [Mass/volume] in Ser um or Plasma by Bromocresol green (BCG) dye binding methoOrdered By: Rosa Romo on 03-19-2023 Albumin BCG dye [Mass/Vol] 4.5 g/dL 3.5-5.7 [facility] Alkaline phosphatase [Enzyma tic activity/volume] in Serum or PlasmaOrdered By: Rosa Romo on 03-19-2023 ALP [Catalytic activity/Vol] 56 U/L 34-104 [facility] Aspartate aminotransferase [ Enzymatic activity/volume] in Serum or PlasmaOrdered By: Rosa Romo on 03-19-2023 AST [Catalytic activity/Vol] 19 U/L 13-39 [facility] Basophils Auto (Bld) [#/Vol] Ordered By: Rosa Romo on 03-19-2023 Basophils (Bld) [#/Vol] 0.1 10*3/uL 0.0-0.2 [facility] Basophils/100 WBC Auto (Bld) Ordered By: Rosa Romo on 03-19-2023 Basophils/100 WBC (Bld) 0.9 % . [facility] Bilirubin.total [Mass/volume ] in Serum or PlasmaOrdered By: Rosa Romo on 03-19-2023 Bilirubin [Mass/Vol] 1.4 mg/dL 0.3-1.0 [facility] Comment on above: Samples from patient s who have taken Naproxen have shown spurious elevation in Total Bilirubin levels. A metabolite of Naproxen, O-desmethylnaproxen, has been shown to interfere with the Pop-Adeel method for measuring Total Bilirubin. Calcium [Mass/volume] in Ser um or PlasmaOrdered By: Rosa Romo on 03-19-2023 Calcium [Mass/Vol] 9.7 mg/dL 8.6-10.3 [facility] Carbon dioxide, total [Moles /volume] in Serum or PlasmaOrdered By: Rosa Romo on 03-19-2023 CO2 [Moles/Vol] 31.9 mmol/L 21.0-31.0 [facility] Chloride [Moles/volume] in S anne or PlasmaOrdered By: Rosa Romo on 03-19-2023 Chloride [Moles/Vol] 104 mmol/L 98-107 [facility] Cholesterol [Mass/volume] in Serum or PlasmaOrdered By: Zeus Lamas on 03-19-2023 Cholesterol [Mass/Vol] 179 mg/dL 140-200 [facility] Comment on above: Chol less than 200 m g/dl low riskChol 201-239 mg/dl borderline riskChol 240 mg/dl and greater high risk Cholesterol in LDL Calc [Mas s/Vol]Ordered By: Zeus Lamas on 03-19-2023 Cholesterol in LDL [Mass/Vol] 123 mg/dL 0-100 [facility] Comment on above: LDL ATP III CLASSIFI CATIONLDL less than 100 mg/dL OptimalLDL 100-129 mg/dL Near or above optimalLDL 130-159 mg/dL Borderline highLDL 160-189 mg/dL HighLDL greater than 189 mg/dL Very high Cholesterol in VLDL Calc [Ma ss/Vol]Ordered By: Zeus Lamas on 03-19-2023 Cholesterol in VLDL [Mass/Vol] 12 mg/dL [facility] Comprehensive Metabolic Pane douglas 03-19-2023 Albumin [Mass/Vol] 4.5 g/dL Normal 3.5-5.7 [facility] Comment on above: Order Comment: PT FA STED 12 HOURS Performed By: #### S CAN CBC, CMP #### [facility] [address] Albumin/Globulin [Mass ratio] 2.0 {ratio} Normal [facility] Comment on above: Order Comment: PT FA STED 12 HOURS Performed By: #### S CAN CBC, CMP #### [address] ALP [Catalytic activity/Vol] 56 U/L Normal 34-104 [facility] Comment on above: Order Comment: PT FA STED 12 HOURS Performed By: #### S CAN CBC, CMP #### [address] ALT [Catalytic activity/Vol] 13 U/L Normal 7-52 [facility] Comment on above: Order Comment: PT FA STED 12 HOURS Performed By: #### S CAN CBC, CMP #### [facility] [address] [place] [address] Anion gap [Moles/Vol] 9.3 mmol/L Normal 6.0-15.0 [facility] Comment on above: Order Comment: PT FA STED 12 HOURS Performed By: #### S CAN CBC, CMP #### [address] AST [Catalytic activity/Vol] 19 U/L Normal 13-39 [facility] Comment on above: Order Comment: PT FA STED 12 HOURS Performed By: #### S CAN CBC, CMP #### [address] Bilirubin [Mass/Vol] 1.4 mg/dL High 0.3-1.0 [facility] Comment on above: Order Comment: PT FA STED 12 HOURS Result Comment: Samp les from patients who have taken Naproxen have shown spurious elevation in Total Bilirubin levels. A metabolite of Naproxen, O-desmethylnaproxen, has been shown to interfere with the Jendrassik-Grof method for measuring Total Bilirubin. Performed By: #### S CAN CBC, CMP #### [address] Calcium [Mass/Vol] 9.7 mg/dL Normal 8.6-10.3 [facility] Comment on above: Order Comment: PT FA STED 12 HOURS Performed By: #### S CAN CBC, CMP #### [address] Chloride [Moles/Vol] 104 mmol/L Normal 98-107 [facility] Comment on above: Order Comment: PT FA STED 12 HOURS Performed By: #### S CAN CBC, CMP #### [place] [address] [place] CO2 [Moles/Vol] 31.9 mmol/L High 21.0-31.0 [facility] Comment on above: Order Comment: PT FA STED 12 HOURS Performed By: #### S CAN CBC, CMP #### [place] [address] [place] Creatinine [Mass/Vol] 0.77 mg/dL Normal 0.60-1.20 [facility] Comment on above: Order Comment: PT FA STED 12 HOURS Performed By: #### S CAN CBC, CMP #### [place] [address] [place] Creatinine Clr Calc Pharmacy 76.42 Normal [facility] Comment on above: Order Comment: PT FA STED 12 HOURS Result Comment: PERF ORMED BY: [place] [address] PATHOLOGIST FARM LOAN INSPECTOR MIGUEL LARSEN M.D. Performed By: #### S CAN CBC, CMP #### [facility] [address] [place] [address] [place] GFR/1.73 sq M.predicted MDRD (S/P/Bld) [Vol rate/Area] mL/min/{1.73_m2} Normal [facility] Comment on above: Order Comment: PT FA STED 12 HOURS Performed By: #### S CAN CBC, CMP #### [facility] [address] [place] [address] [place] Globulin (S) [Mass/Vol] 2.2 g/dL Normal [facility] Comment on above: Order Comment: PT FA STED 12 HOURS Performed By: #### S CAN CBC, CMP #### [address] Glucose [Mass/Vol] 79 mg/dL Normal 70-100 [facility] Comment on above: Order Comment: PT FA STED 12 HOURS Result Comment: [facility] Glucose Reference Range is dependent on time and content of last meal. Glucose of more than 200 mg/dL in a nonstressed, ambulatory subject supports the diagnosis of Diabetes Mellitus. ADA recommended reference range Performed By: #### S CAN CBC, CMP #### [place] [address] [place] Potassium [Moles/Vol] 4.2 mmol/L Normal 3.5-5.1 [facility] Comment on above: Order Comment: PT FA STED 12 HOURS Performed By: #### S CAN CBC, CMP #### [place] [address] [place] Protein [Mass/Vol] 6.7 g/dL Normal 6.4-8.9 [facility] Comment on above: Order Comment: PT FA STED 12 HOURS Performed By: #### S CAN CBC, CMP #### [place] [address] [place] Sodium [Moles/Vol] 141 mmol/L Normal 136-145 [facility] Comment on above: Order Comment: PT FA STED 12 HOURS Performed By: #### S CAN CBC, CMP #### [place] [address] [place] Urea nitrogen [Mass/Vol] 13 mg/dL Normal 7-25 [facility] Comment on above: Order Comment: PT FA STED 12 HOURS Performed By: #### S CAN CBC, CMP #### [facility] [address] Creatinine [Mass/volume] in Serum or PlasmaOrdered By: Rosa Romo on 03-19-2023 Creatinine [Mass/Vol] 0.77 mg/dL 0.60-1.[address] [facility] Eosinophils Auto (Bld) [#/Vo l]Ordered By: Rosa Romo on 03-19-2023 Eosinophils (Bld) [#/Vol] 0.3 10*3/uL 0.0-0.45 [facility] Eosinophils/100 WBC Auto (Bl d)Ordered By: Rosa Romo on 03-19-2023 Eosinophils/100 WBC (Bld) 4.9 % . [facility] Erythrocyte distribution wid th Auto (RBC) [Ratio]Ordered By: Rosa Romo on 03-19-2023 Erythrocyte distribution width (RBC) [Ratio] 15.4 % 11.9-15.3 [facility] Globulin Calc (S) [Mass/Vol] Ordered By: Rosa Romo on 03-19-2023 Globulin (S) [Mass/Vol] 2.2 g/dL [facility] Glucose [Mass/volume] in Ser um or PlasmaOrdered By: Rosa Romo on 03-19-2023 Glucose [Mass/Vol] 79 mg/dL 70-100 [facility] Comment on above: ADA recommended refe rence rangeRandom Glucose Reference Range is dependent on time and content of last meal. Glucose of more than 200 mg/dL in a nonstressed, ambulatory subject supports the diagnosis of Diabetes Mellitus. Hematocrit Auto (Bld) [Volum e fraction]Ordered By: Rosa Romo on 03-19-2023 Hematocrit (Bld) [Volume fraction] 41.5 % 34.0-46.4 [facility] Hemoglobin [Mass/volume] in BloodOrdered By: Rosa Romo on 03-19-2023 Hemoglobin (Bld) [Mass/Vol] 13.7 g/dL 11.8-15.4 [facility] Leukocytes [#/volume] correc prema for nucleated erythrocytes in Blood by Automated counOrdered By: Rosa Romo on 03-19-2023 WBC corrected for nucl RBC Auto (Bld) [#/Vol] 6.5 10*3/uL 3.8-11.6 [facility] Lipid Panelon 03-19-2023 Cholesterol [Mass/Vol] 179 mg/dL Normal 140-200 [facility] Comment on above: Order Comment: PT FA STED 12 HOURS Result Comment: Chol less than 200 mg/dl low risk Chol 201-239 mg/dl borderline risk Chol 240 mg/dl and greater high risk Performed By: #### L IPID #### [facility] [address] [place] [id number] [place] Cholesterol in HDL [Mass/Vol] 44 mg/dL Normal 23-92 [facility] Comment on above: Order Comment: PT FA STED 12 HOURS Result Comment: HDL CHOL ATP-III CLASSIFICATION Cardiovascular Risk HDL > or equal to 60 mg/dL LOW HDL < 40 mg/dL HIGH Performed By: #### L IPID #### [facility] [address] [place] [address] [place] Cholesterol.total/Chol esterol in HDL [Mass ratio] 4.1 {ratio} Normal <5.0 [facility] Comment on above: Order Comment: PT FA STED 12 HOURS Result Comment: PERF ORMED BY: [place] [address] PATHOLOGIST FARM [employer] INSPECTOR MIGUEL LARSEN M.D. Performed By: #### L IPID #### [facility] [address] [place] [id number] [place] LDL Cholesterol,Calculated 123 mg/dL High 0-100 [facility] Comment on above: Order Comment: PT FA STED 12 HOURS Result Comment: LDL ATP III CLASSIFICATION LDL less than 100 mg/dL Optimal LDL 100-129 mg/dL Near or above optimal LDL 130-159 mg/dL Borderline high LDL 160-189 mg/dL High LDL greater than 189 mg/dL Very high Performed By: #### L IPID #### [facility] [address] [place] [address] [place] Triglyceride w/Reflex 62 mg/dL Normal 0-149 [facility] Comment on above: Order Comment: PT FA STED 12 HOURS Result Comment: TRIG ATP III CLASSIFICATION TRIG less than 150 mg/dL Normal TRIG 150-199 mg/dL Borderline high TRIG 200-500 mg/dL High TRIG greater than 500 mg/dL Very high Standard traceable to the Center for Disease Conrtrol and Prevention (CDC) test method. Performed By: #### L IPID #### [facility] [address] VLDL CHOLESTEROL 12 mg/dL Normal [facility] Comment on above: Order Comment: PT FA STED 12 HOURS Performed By: #### L IPID #### [facility] [address] Lymphocytes Auto (Bld) [#/Vo l]Ordered By: Rosa Romo on 03-19-2023 Lymphocytes (Bld) [#/Vol] 2.1 10*3/uL 1.00-4.8 [facility] Lymphocytes/100 WBC Auto (Bl d)Ordered By: Rosa Romo on 03-19-2023 Lymphocytes/100 WBC (Bld) 32.8 % . [facility] MCH Auto (RBC) [Entitic mass ]Ordered By: Rosa Romo on 03-19-2023 MCH (RBC) [Entitic mass] 28.8 pg 24.7-34.3 [facility] MCHC Auto (RBC) [Mass/Vol]Or dered By: Rosa Romo on 03-19-2023 MCHC (RBC) [Mass/Vol] 33.1 g/dL 32.0-35.[address] [facility] MCV Auto (RBC) [Entitic vol] Ordered By: Rosa Romo on 03-19-2023 MCV (RBC) [Entitic vol] 87.1 fL 80-100 [facility] Monocytes Auto (Bld) [#/Vol] Ordered By: Rosa Romo on 03-19-2023 Monocytes (Bld) [#/Vol] 0.5 10*3/uL 0.0-0.8 [facility] Monocytes/100 WBC Auto (Bld) Ordered By: Rosa Romo on 03-19-2023 Monocytes/100 WBC (Bld) 7.3 % . [facility] Neutrophils Auto (Bld) [#/Vo l]Ordered By: Rosa Romo on 03-19-2023 Neutrophils (Bld) [#/Vol] 3.5 10*3/uL 1.8-7.7 [facility] Neutrophils/100 WBC Auto (Bl d)Ordered By: Rosa Romo on 03-19-2023 Neutrophils/100 WBC (Bld) 54.1 % . [facility] No Panel InformationOrdered By: Rosa Romo on 03-19-2023 Estimated GFR (CKD-EPI) > 60.0 mL/Min [facility] Creatinine Clearance (Chem 76.42 [facility] Nucleated erythrocytes [Pres ence] in Blood by Automated countOrdered By: Rosa Romo on 03-19-2023 Nucleated RBC Auto Ql (Bld) 0.0 /100{WBC} 0-0.5 [facility] Platelet adequacy [Presence] in Blood by Light microscopyOrdered By: Rosa Romo on 03-19-2023 Platelets LM Ql (Bld) Increased Normal [facility] Platelet mean volume Auto (B ld) [Entitic vol]Ordered By: Rosa Romo on 03-19-2023 Platelet mean volume (Bld) [Entitic vol] 8.5 fL 6.3-10.7 [facility] Platelet morphology finding [Identifier] in BloodOrdered By: Rosa Romo on 03-19-2023 Platelet morphology finding Nom (Bld) Normal Normal [facility] Platelets Auto (Bld) [#/Vol] Ordered By: Rosa Romo on 03-19-2023 Platelets (Bld) [#/Vol] 537 10*3/uL 150-450 [facility] Potassium [Moles/volume] in Serum or PlasmaOrdered By: Rosa Romo on 03-19-2023 Potassium [Moles/Vol] 4.2 mmol/L 3.5-5.[address] [facility] Protein [Mass/volume] in Ser um or PlasmaOrdered By: Rosa Romo on 03-19-2023 Protein [Mass/Vol] 6.7 g/dL 6.4-8.9 [facility] RBC Auto (Bld) [#/Vol]Ordere d By: Rosa Romo on 03-19-2023 RBC (Bld) [#/Vol] 4.76 10*6/uL 3.60-5.00 [facility] RBC morphologyOrdered By: Rosie Romo on 03-19-2023 RBC morphology finding Nom (Bld) Normal Normal [facility] Scan and CBCon 03-19-2023 Basophils (Bld) [#/Vol] 0.1 10*3/uL Normal 0.0-0.2 [facility] Comment on above: Performed By: #### S CAN CBC, CMP #### [facility] [address] [place] [address] [place] Basophils/100 WBC (Bld) 0.9 % Normal . [facility] Comment on above: Performed By: #### S CAN CBC, CMP #### [facility] [address] [place] [address] [place] Eosinophils (Bld) [#/Vol] 0.3 10*3/uL Normal 0.0-0.45 [facility] Comment on above: Performed By: #### S CAN CBC, CMP #### [facility] [address] [place] [id number] [place] Eosinophils/100 WBC (Bld) 4.9 % Normal . [facility] Comment on above: Performed By: #### S CAN CBC, CMP #### [facility] [address] Erythrocyte distribution width (RBC) [Ratio] 15.4 % High 11.9-15.3 [facility] Comment on above: Performed By: #### S CAN CBC, CMP #### [facility] [address] [place] [id number] [place] Hematocrit (Bld) [Volume fraction] 41.5 % Normal 34.0-46.4 [facility] Comment on above: Performed By: #### S CAN CBC, CMP #### [facility] [address] [place] [address] [place] Hemoglobin (Bld) [Mass/Vol] 13.7 g/dL Normal 11.8-15.4 [facility] Comment on above: Performed By: #### S CAN CBC, CMP #### [facility] [address] Lymphocytes (Bld) [#/Vol] 2.1 10*3/uL Normal 1.00-4.8 [facility] Comment on above: Performed By: #### S CAN CBC, CMP #### [address] Lymphocytes/100 WBC (Bld) 32.8 % Normal . [facility] Comment on above: Performed By: #### S CAN CBC, CMP #### [address] MCH (RBC) [Entitic mass] 28.8 pg Normal 24.7-34.3 [facility] Comment on above: Performed By: #### S CAN CBC, CMP #### [address] MCV (RBC) [Entitic vol] 87.1 fL Normal 80-100 [facility] Comment on above: Performed By: #### S CAN CBC, CMP #### [address] Mean Corpuscular HGB Conc 33.1 g/dL Normal 32.0-35.0 [facility] Comment on above: Performed By: #### S CAN CBC, CMP #### [address] Monocytes (Bld) [#/Vol] 0.5 10*3/uL Normal 0.0-0.8 [facility] Comment on above: Performed By: #### S CAN CBC, CMP #### [place] [address] [place] Monocytes/100 WBC (Bld) 7.3 % Normal . [facility] Comment on above: Performed By: #### S CAN CBC, CMP #### [address] Neutrophils (Bld) [#/Vol] 3.5 10*3/uL Normal 1.8-7.7 [facility] Comment on above: Performed By: #### S CAN CBC, CMP #### [address] Neutrophils/100 WBC (Bld) 54.1 % Normal . [facility] Comment on above: Performed By: #### S CAN CBC, CMP #### [address] NRBC% 0.0 /100{WBC} Normal 0-0.5 [facility] Comment on above: Performed By: #### S CAN CBC, CMP #### [address] Platelet Estimate Increased Normal Normal [facility] Comment on above: Performed By: #### S CAN CBC, CMP #### [address] Platelet mean volume (Bld) [Entitic vol] 8.5 fL Normal 6.3-10.7 [facility] Comment on above: Performed By: #### S CAN CBC, CMP #### [address] Platelet Morphology Normal Normal Normal [facility] Comment on above: Result Comment: PERF ORMED BY: [place] [address] PATHOLOGIST [employer] MIGUEL LARSEN M.D. Performed By: #### S CAN CBC, CMP #### [address] Platelets (Bld) [#/Vol] 537 10*3/uL High 150-450 [facility] Comment on above: Performed By: #### S CAN CBC, CMP #### [address] RBC (Bld) [#/Vol] 4.76 10*6/uL Normal 3.60-5.00 [facility] Comment on above: Performed By: #### S CAN CBC, CMP #### [address] RBC morphology finding Nom (Bld) Normal Normal Normal [facility] Comment on above: Performed By: #### S CAN CBC, CMP #### [facility] [address] WBC (Bld) [#/Vol] 6.5 10*3/uL Normal 3.8-11.6 [facility] Comment on above: Performed By: #### S CAN CBC, CMP #### [facility] [address] Serum or plasma albumin/glob ulin mass ratioOrdered By: Rosa Romo on 03-19-2023 Albumin/Globulin [Mass ratio] 2.0 {ratio} [facility] Serum or plasma anion gap de terminationOrdered By: Rosa Romo on 03-19-2023 Anion gap [Moles/Vol] 9.3 mmol/L 6.0-15.[address] [facility] Serum or plasma high density lipoprotein (HDL) cholesterol measurementOrdered By: Zeus Lamas on 03-19-2023 Cholesterol in HDL [Mass/Vol] 44 mg/dL [facility] Comment on above: HDL CHOL ATP-III CLA SSIFICATION Cardiovascular RiskHDL > or equal to 60 mg/dL LOWHDL < 40 mg/dL HIGH Serum or plasma total choles terol/high density lipoprotein (HDL) cholesterol mass ratOrdered By: Zeus Lamas on 03-19-2023 Cholesterol.total/Chol esterol in HDL [Mass ratio] 4.1 {ratio} <5.0 [facility] Sodium [Moles/volume] in Ser um or PlasmaOrdered By: Rosa Romo on 03-19-2023 Sodium [Moles/Vol] 141 mmol/L 136-145 [facility] Triglyceride [Mass/volume] i n Serum or PlasmaOrdered By: Zeus Lamas on 03-19-2023 Triglyceride [Mass/Vol] 62 mg/dL 0-149 [facility] Comment on above: TRIG ATP III CLASSIF ICATIONTRIG less than 150 mg/dL NormalTRIG 150-199 mg/dL Borderline highTRIG 200-500 mg/dL High TRIG greater than 500 mg/dL Very highStandard traceable to the Center for Disease Conrtrol and Prevention (CDC) test method. Urea nitrogen [Mass/volume] in Serum or PlasmaOrdered By: Rosa Romo on 03-19-2023 Urea nitrogen [Mass/Vol] 13 mg/dL 7 [facility] WBC Auto (Bld) [#/Vol]Ordere d By: Rosa Romo on 03-19-2023 WBC (Bld) [#/Vol] 6.5 10*3/uL 3.8-11.6 [facility] Complete Blood Count Auto Di ffon 09-22-2022 Basophils (Bld) [#/Vol] 0.1 10*3/uL Normal 0.0-0.2 [facility] Comment on above: Result Comment: PERF ORMED BY: [place] [address] PATHOLOGIST [employer] MIGUEL LARSEN M.D. Performed By: #### C BC #### [address] Basophils/100 WBC (Bld) 0.7 % Normal . [facility] Comment on above: Performed By: #### C BC #### [address] Eosinophils (Bld) [#/Vol] 0.3 10*3/uL Normal 0.0-0.45 [facility] Comment on above: Performed By: #### C BC #### [address] Eosinophils/100 WBC (Bld) 4.4 % Normal . [facility] Comment on above: Performed By: #### C BC #### [address] Erythrocyte distribution width (RBC) [Ratio] 14.7 % Normal 11.9-15.3 [facility] Comment on above: Performed By: #### C BC #### [address] Hematocrit (Bld) [Volume fraction] 42.0 % Normal 34.0-46.4 [facility] Comment on above: Performed By: #### C BC #### [address] Hemoglobin (Bld) [Mass/Vol] 13.7 g/dL Normal 11.8-15.4 [facility] Comment on above: Performed By: #### C BC #### [address] Lymphocytes (Bld) [#/Vol] 1.8 10*3/uL Normal 1.00-4.8 [facility] Comment on above: Performed By: #### C BC #### [address] Lymphocytes/100 WBC (Bld) 22.7 % Normal . [facility] Comment on above: Performed By: #### C BC #### [address] MCH (RBC) [Entitic mass] 28.8 pg Normal 24.7-34.3 [facility] Comment on above: Performed By: #### C BC #### [address] MCV (RBC) [Entitic vol] 88.4 fL Normal 80-100 [facility] Comment on above: Performed By: #### C BC #### [address] Mean Corpuscular HGB Conc 32.6 g/dL Normal 32.0-35.0 [facility] Comment on above: Performed By: #### C BC #### [address] Monocytes (Bld) [#/Vol] 0.5 10*3/uL Normal 0.0-0.8 [facility] Comment on above: Performed By: #### C BC #### [address] Monocytes/100 WBC (Bld) 6.5 % Normal . [facility] Comment on above: Performed By: #### C BC #### [address] Neutrophils (Bld) [#/Vol] 5.1 10*3/uL Normal 1.8-7.7 [facility] Comment on above: Performed By: #### C BC #### [facility] [address] Neutrophils/100 WBC (Bld) 65.7 % Normal . [facility] Comment on above: Performed By: #### C BC #### [facility] [address] NRBC% 0.1 /100{WBC} Normal 0-0.5 [facility] Comment on above: Performed By: #### C BC #### [address] Platelet mean volume (Bld) [Entitic vol] 8.5 fL Normal 6.3-10.7 [facility] Comment on above: Performed By: #### C BC #### [address] Platelets (Bld) [#/Vol] 551 10*3/uL High 150-450 [facility] Comment on above: Performed By: #### C BC #### [address] RBC (Bld) [#/Vol] 4.75 10*6/uL Normal 3.60-5.00 [facility] Comment on above: Performed By: #### C BC #### [address] WBC (Bld) [#/Vol] 7.7 10*3/uL Normal 3.8-11.6 [facility] Comment on above: Performed By: #### C BC #### [place] [address] [place] Basophils Auto (Bld) [#/Vol] Ordered By: Rosa Romo on 03-22-2022 Basophils (Bld) [#/Vol] 0.1 10*3/uL 0.0-0.2 [facility] Basophils/100 WBC Auto (Bld) Ordered By: Rosa Romo on 03-22-2022 Basophils/100 WBC (Bld) 0.9 % . [facility] Body fluid albumin measureme nt (mass/volume)Ordered By: Rosa Romo on 03-22-2022 Albumin (Body fld) [Mass/Vol] 4.3 g/dL 3.2-5.5 [facility] Creatinine and Glomerular fi ltration rate.predicted panel (S/P/Bld)Ordered By: Rosa Romo on 03-22-2022 Creatinine [Mass/Vol] 0.79 mg/dL 0.44-1.[address] [facility] Eosinophils Auto (Bld) [#/Vo l]Ordered By: Rosa Romo on 03-22-2022 Eosinophils (Bld) [#/Vol] 0.2 10*3/uL 0.0-0.45 [facility] Eosinophils/100 WBC Auto (Bl d)Ordered By: Rosa Romo on 03-22-2022 Eosinophils/100 WBC (Bld) 2.4 % . [facility] Erythrocyte distribution wid th Auto (RBC) [Ratio]Ordered By: Rosa Romo on 03-22-2022 Erythrocyte distribution width (RBC) [Ratio] 14.7 % 11.9-15.3 [facility] Estimated glomerular filtrat ion rate (GFR) non- AmericanOrdered By: Rosa Romo on 03-22-2022 GFR/1.73 sq M.predicted among non-blacks MDRD (S/P/Bld) [Vol rate/Area] > 60 mL/Min [facility] Globulin Calc (S) [Mass/Vol] Ordered By: Rosa Romo on 03-22-2022 Globulin (S) [Mass/Vol] 2.2 g/dL [facility] Hematocrit Auto (Bld) [Volum e fraction]Ordered By: Rosa Romo on 03-22-2022 Hematocrit (Bld) [Volume fraction] 41.9 % 34.0-46.4 [facility] Hemoglobin [Mass/volume] in BloodOrdered By: Rosa Romo on 03-22-2022 Hemoglobin (Bld) [Mass/Vol] 13.6 g/dL 11.8-15.4 [facility] Laboratory - Hematology and Cell countsOrdered By: Rosa Romo on 03-22-2022 Nucleated RBC/100 WBC (Bld) [Ratio] 0.0 % 0-0.5 [facility] Leukocytes [#/volume] in Blo od by Automated countOrdered By: Rosa Romo on 03-22-2022 WBC (Bld) [#/Vol] 8.0 10*3/uL 4.5-11.0 [facility] Lymphocytes Auto (Bld) [#/Vo l]Ordered By: Rosa Romo on 03-22-2022 Lymphocytes (Bld) [#/Vol] 2.0 10*3/uL 1.00-4.8 [facility] Lymphocytes/100 WBC Auto (Bl d)Ordered By: Rosa Romo on 03-22-2022 Lymphocytes/100 WBC (Bld) 24.9 % . [facility] MCH Auto (RBC) [Entitic mass ]Ordered By: Rosa Romo on 03-22-2022 MCH (RBC) [Entitic mass] 29.4 pg 24.7-34.3 [facility] MCHC Auto (RBC) [Mass/Vol]Or dered By: Rosa Romo on 03-22-2022 MCHC (RBC) [Mass/Vol] 32.5 g/dL 32.0-35.[address] [facility] MCV Auto (RBC) [Entitic vol] Ordered By: Rosa Romo on 03-22-2022 MCV (RBC) [Entitic vol] 90.4 fL 80-100 [facility] Monocytes Auto (Bld) [#/Vol] Ordered By: Rosa Romo on 03-22-2022 Monocytes (Bld) [#/Vol] 0.4 10*3/uL 0.0-0.8 [facility] Monocytes/100 WBC Auto (Bld) Ordered By: Rosa Romo on 03-22-2022 Monocytes/100 WBC (Bld) 5.2 % . [facility] Neutrophils Auto (Bld) [#/Vo l]Ordered By: Rosa Romo on 03-22-2022 Neutrophils (Bld) [#/Vol] 5.3 10*3/uL 1.8-7.7 [facility] Neutrophils/100 WBC Auto (Bl d)Ordered By: Rosa Romo on 03-22-2022 Neutrophils/100 WBC (Bld) 66.6 % . [facility] No Panel InformationOrdered By: Rosa Romo on 03-22-2022 Estimated GFR () > 60 mL/Min [facility] Comment on above: GFR estimated refere nce range: According to KDOQI guidelines, <60 ml/min/1.73m2 is sufficient to diagnose a patient with chronic kidney disease. Pharmacy Creatinine Clearance (Chem 75.44 [facility] Platelet mean volume Auto (B ld) [Entitic vol]Ordered By: Rosa Romo on 03-22-2022 Platelet mean volume (Bld) [Entitic vol] 8.3 fL 6.3-10.7 [facility] Platelets Auto (Bld) [#/Vol] Ordered By: Rosa Romo on 03-22-2022 Platelets (Bld) [#/Vol] 506 10*3/uL 150-450 [facility] Protein [Mass/volume] in Ser um or PlasmaOrdered By: Rosa Romo on 03-22-2022 Protein [Mass/Vol] 6.5 g/dL 6.1-7.9 [facility] RBC Auto (Bld) [#/Vol]Ordere d By: Rosa Romo on 03-22-2022 RBC (Bld) [#/Vol] 4.63 10*6/uL 3.60-5.00 [facility] Serum or plasma alanine black otransferase measurement without P-5'-P (enzymatic activiOrdered By: Rosa Romo on 03-22-2022 ALT No additional P-5'-P [Catalytic activity/Vol] 17 U/L 10-60 [facility] Serum or plasma albumin/glob ulin mass ratioOrdered By: Rosa Romo on 03-22-2022 Albumin/Globulin [Mass ratio] 2.0 {ratio} [facility] Serum or plasma alkaline laurie sphatase measurement (enzymatic activity/volume)Ordered By: Rosa Romo on 03-22-2022 ALP [Catalytic activity/Vol] 56 U/L 32-92 [facility] Serum or plasma anion gap de terminationOrdered By: Rosa Romo on 03-22-2022 Anion gap [Moles/Vol] 11.6 mmol/L 6.0-15.0 [facility] Serum or plasma aspartate am inotransferase measurement (enzymatic activity/volume)Ordered By: Rosa Romo on 03-22-2022 AST [Catalytic activity/Vol] 22 U/L 10-42 [facility] Serum or plasma calcium los urement (mass/volume)Ordered By: Rosa Romo on 03-22-2022 Calcium [Mass/Vol] 9.7 mg/dL 8.2-10.2 [facility] Serum or plasma chloride theresa surement (moles/volume)Ordered By: Rosa Romo on 03-22-2022 Chloride [Moles/Vol] 100 mmol/L 95-114 [facility] Serum or plasma glucose los urement (mass/volume)Ordered By: Rosa Romo on 03-22-2022 Glucose [Mass/Vol] 123 mg/dL 70-100 [facility] Comment on above: ADA recommended refe rence rangeRandom Glucose Reference Range is dependent on time and content of last meal. Glucose of more than 200 mg/dL in a nonstressed, ambulatory subject supports the diagnosis of Diabetes Mellitus. Serum or plasma potassium me asurement (moles/volume)Ordered By: Rosa Romo on 03-22-2022 Potassium [Moles/Vol] 4.4 mmol/L 3.5-5.[address] [facility] Serum or plasma sodium measu rement (moles/volume)Ordered By: Rosa Romo on 03-22-2022 Sodium [Moles/Vol] 137 mmol/L 136-146 [facility] Serum or plasma total biliru bin measurement (mass/volume)Ordered By: Rosa Romo on 03-22-2022 Bilirubin [Mass/Vol] 1.8 mg/dL 0.3-1.2 [facility] Comment on above: Samples from patient s who have taken Naproxen have shown spurious elevation in Total Bilirubin levels. A metabolite of Naproxen, O-desmethylnaproxen, has been shown to interfere with the Pop-Adeel method for measuring Total Bilirubin. Serum or plasma total carbon dioxide measurement (moles/volume)Ordered By: Rosa Romo on 03-22-2022 CO2 [Moles/Vol] 29.8 mmol/L 22.0-30.0 [facility] Serum or plasma urea nitroge n measurement (mass/volume)Ordered By: Rosa Romo on 03-22-2022 Urea nitrogen [Mass/Vol] 12 mg/dL 9- [facility] Basophils Auto (Bld) [#/Vol] Ordered By: Rosa Romo on 12-20-2021 Basophils (Bld) [#/Vol] 0.0 10*3/uL 0.0-0.2 [facility] Basophils/100 WBC Auto (Bld) Ordered By: Rosa Romo on 12-20-2021 Basophils/100 WBC (Bld) 0.7 % . [facility] Blood hemoglobin measurement (mass/volume)Ordered By: Rosa Romo on 12-20-2021 Hemoglobin (Bld) [Mass/Vol] 13.6 g/dL 11.8-15.4 [facility] Blood leukocytes automated c ount (number/volume)Ordered By: Rosa Romo on 12-20-2021 WBC (Bld) [#/Vol] 6.3 10*3/uL 4.5-11.0 [facility] Body fluid albumin measureme nt (mass/volume)Ordered By: Rosa Romo on 12-20-2021 Albumin (Body fld) [Mass/Vol] 4.7 g/dL 3.2-5.5 [facility] CT biopsyOrdered By: Rosa Galindo se on 12-20-2021 Transferrin [Mass/Vol] 258 mg/dL 180-380 [facility] Cholesterol [Mass/volume] in Serum or PlasmaOrdered By: Zeus Lamas on 12-20-2021 Cholesterol [Mass/Vol] 175 mg/dL 140-200 [facility] Comment on above: Chol less than 200 m g/dl low risk Chol 201-239 mg/dl borderline risk Chol 240 mg/dl and greater high risk Cholesterol in LDL Calc [Mas s/Vol]Ordered By: Zeus Lamas on 12-20-2021 Cholesterol in LDL [Mass/Vol] 119 mg/dL 0-100 [facility] Comment on above: LDL ATP III CLASSIFI CATION LDL less than 100 mg/dL Optimal LDL 100-129 mg/dL Near or above optimal LDL 130-159 mg/dL Borderline high LDL 160-189 mg/dL High LDL greater than 189 mg/dL Very high Cholesterol in VLDL Calc [Ma ss/Vol]Ordered By: Zeus Lamas on 12-20-2021 Cholesterol in VLDL [Mass/Vol] 11 mg/dL [facility] Creatinine and Glomerular fi ltration rate.predicted panel (S/P/Bld)Ordered By: Rosa Romo on 12-20-2021 Creatinine [Mass/Vol] 0.78 mg/dL 0.44-1.[address] [facility] Eosinophils Auto (Bld) [#/Vo l]Ordered By: Rosa Romo on 12-20-2021 Eosinophils (Bld) [#/Vol] 0.2 10*3/uL 0.0-0.45 [facility] Eosinophils/100 WBC Auto (Bl d)Ordered By: Rosa Romo on 12-20-2021 Eosinophils/100 WBC (Bld) 2.9 % . [facility] Erythrocyte distribution wid th Auto (RBC) [Ratio]Ordered By: Rosa Romo on 12-20-2021 Erythrocyte distribution width (RBC) [Ratio] 15.6 % 11.9-15.3 [facility] Estimated glomerular filtrat ion rate (GFR) non- AmericanOrdered By: Rosa Romo on 12-20-2021 GFR/1.73 sq M.predicted among non-blacks MDRD (S/P/Bld) [Vol rate/Area] > 60 mL/Min [facility] Ferritin [Mass/volume] in Se rum or PlasmaOrdered By: Rosa Romo on 12-20-2021 Ferritin [Mass/Vol] 278.9 ng/mL 11-306.8 [facility] Globulin Calc (S) [Mass/Vol] Ordered By: Rosa Romo on 12-20-2021 Globulin (S) [Mass/Vol] 2.2 g/dL [facility] Hematocrit Auto (Bld) [Volum e fraction]Ordered By: Rosa Romo on 12-20-2021 Hematocrit (Bld) [Volume fraction] 41.2 % 34.0-46.4 [facility] Iron [Mass/volume] in Serum or PlasmaOrdered By: Rosa Romo on 12-20-2021 Iron [Mass/Vol] 90 ug/dL 40-150 [facility] Iron binding capacity [Mass/ volume] in Serum or PlasmaOrdered By: Rosa Romo on 12-20-2021 Iron binding capacity [Mass/Vol] 361 ug/dL 255-450 [facility] Iron saturation [Mass Fracti on] in Serum or PlasmaOrdered By: Rosa Romo on 12-20-2021 Iron saturation [Mass fraction] 24.0 % 20-50 [facility] Laboratory - Hematology and Cell countsOrdered By: Rosa Romo on 12-20-2021 Nucleated RBC/100 WBC (Bld) [Ratio] 0.0 % 0-0.5 [facility] Lymphocytes Auto (Bld) [#/Vo l]Ordered By: Rosa Romo on 12-20-2021 Lymphocytes (Bld) [#/Vol] 1.7 10*3/uL 1.00-4.8 [facility] Lymphocytes/100 WBC Auto (Bl d)Ordered By: Rosa Romo on 12-20-2021 Lymphocytes/100 WBC (Bld) 26.9 % . [facility] MCH Auto (RBC) [Entitic mass ]Ordered By: Rosa Romo on 12-20-2021 MCH (RBC) [Entitic mass] 29.8 pg 24.7-34.3 [facility] MCHC Auto (RBC) [Mass/Vol]Or dered By: Rosa Romo on 12-20-2021 MCHC (RBC) [Mass/Vol] 33.1 g/dL 32.0-35.[address] [facility] MCV Auto (RBC) [Entitic vol] Ordered By: Rosa Romo on 12-20-2021 MCV (RBC) [Entitic vol] 90.0 fL 80-100 [facility] Monocytes Auto (Bld) [#/Vol] Ordered By: Rosa Romo on 12-20-2021 Monocytes (Bld) [#/Vol] 0.4 10*3/uL 0.0-0.8 [facility] Monocytes/100 WBC Auto (Bld) Ordered By: Rosa Rmoo on 12-20-2021 Monocytes/100 WBC (Bld) 6.3 % . [facility] Neutrophils Auto (Bld) [#/Vo l]Ordered By: Rosa Romo on 12-20-2021 Neutrophils (Bld) [#/Vol] 4.0 10*3/uL 1.8-7.7 [facility] Neutrophils/100 WBC Auto (Bl d)Ordered By: Rosa Romo on 12-20-2021 Neutrophils/100 WBC (Bld) 63.2 % . [facility] No Panel InformationOrdered By: Rosa Romo on 12-20-2021 Estimated GFR () > 60 mL/Min [facility] Comment on above: GFR estimated refere nce range: According to KDOQI guidelines, <60 ml/min/1.73m2 is sufficient to diagnose a patient with chronic kidney disease. Pharmacy Creatinine Clearance (Chem 76.40 [facility] Platelet mean volume Auto (B ld) [Entitic vol]Ordered By: Rosa Romo on 12-20-2021 Platelet mean volume (Bld) [Entitic vol] 8.5 fL 6.3-10.7 [facility] Platelets Auto (Bld) [#/Vol] Ordered By: Rosa Romo on 12-20-2021 Platelets (Bld) [#/Vol] 527 10*3/uL 150-450 [facility] Protein [Mass/volume] in Ser um or PlasmaOrdered By: Rosa Romo on 12-20-2021 Protein [Mass/Vol] 6.9 g/dL 6.1-7.9 [facility] RBC Auto (Bld) [#/Vol]Ordere d By: Rosa Romo on 12-20-2021 RBC (Bld) [#/Vol] 4.58 10*6/uL 3.60-5.00 [facility] Serum or plasma alanine black otransferase measurement without P-5'-P (enzymatic activiOrdered By: Rosa Romo on 12-20-2021 ALT No additional P-5'-P [Catalytic activity/Vol] 22 U/L 10-60 [facility] Serum or plasma albumin/glob ulin mass ratioOrdered By: Rosa Romo on 12-20-2021 Albumin/Globulin [Mass ratio] 2.1 {ratio} [facility] Serum or plasma alkaline laurie sphatase measurement (enzymatic activity/volume)Ordered By: Rosa Romo on 12-20-2021 ALP [Catalytic activity/Vol] 52 U/L 32-92 [facility] Serum or plasma aspartate am inotransferase measurement (enzymatic activity/volume)Ordered By: oRsa Romo on 12-20-2021 AST [Catalytic activity/Vol] 24 U/L 10-42 [facility] Serum or plasma calcium los urement (mass/volume)Ordered By: Rosa Romo on 12-20-2021 Calcium [Mass/Vol] 9.9 mg/dL 8.2-10.2 [facility] Serum or plasma chloride theresa surement (moles/volume)Ordered By: Rosa Romo on 12-20-2021 Chloride [Moles/Vol] 100 mmol/L 95-114 [facility] Serum or plasma glucose los urement (mass/volume)Ordered By: Rosa Romo on 12-20-2021 Glucose [Mass/Vol] 89 mg/dL 70-100 [facility] Comment on above: ADA recommended refe rence range Random Glucose Reference Range is dependent on time and content of last meal. Glucose of more than 200 mg/dL in a nonstressed, ambulatory subject supports the diagnosis of Diabetes Mellitus. Serum or plasma high density lipoprotein (HDL) cholesterol measurementOrdered By: Zeus Lamas on 12-20-2021 Cholesterol in HDL [Mass/Vol] 45 mg/dL 35-85 [facility] Comment on above: HDL CHOL ATP-III CLA SSIFICATION Cardiovascular Risk HDL > or equal to 60 mg/dL LOW HDL < 40 mg/dL HIGH Serum or plasma potassium me asurement (moles/volume)Ordered By: Rosa Romo on 12-20-2021 Potassium [Moles/Vol] 4.0 mmol/L 3.5-5.[address] [facility] Serum or plasma sodium measu rement (moles/volume)Ordered By: Rosa Romo on 12-20-2021 Sodium [Moles/Vol] 138 mmol/L 136-146 [facility] Serum or plasma total biliru bin measurement (mass/volume)Ordered By: Rosa Romo on 12-20-2021 Bilirubin [Mass/Vol] 1.4 mg/dL 0.3-1.2 [facility] Comment on above: Samples from patient s who have taken Naproxen have shown spurious elevation in Total Bilirubin levels. A metabolite of Naproxen, O-desmethylnaproxen, has been shown to interfere with the Jenjesenia-Adeel method for measuring Total Bilirubin. Serum or plasma total carbon dioxide measurement (moles/volume)Ordered By: Rosa Romo on 12-20-2021 CO2 [Moles/Vol] 30.2 mmol/L 22.0-30.0 [facility] Serum or plasma total choles terol/high density lipoprotein (HDL) cholesterol mass ratOrdered By: Zeus Lamas on 12-20-2021 Cholesterol.total/Chol esterol in HDL [Mass ratio] 3.9 {ratio} <5.0 [facility] Serum or plasma urea nitroge n measurement (mass/volume)Ordered By: Rosa Romo on 12-20-2021 Urea nitrogen [Mass/Vol] 9 mg/dL 9-23 [facility] Triglyceride [Mass/volume] i n Serum or PlasmaOrdered By: Zeus Lamas on 12-20-2021 Triglyceride [Mass/Vol] 57 mg/dL 35-149 [facility] Comment on above: TRIG ATP III CLASSIF ICATION TRIG less than 150 mg/dL Normal TRIG 150-199 mg/dL Borderline high TRIG 200-500 mg/dL High TRIG greater than 500 mg/dL Very high Standard traceable to the Center for Disease Conrtrol and Prevention (CDC) test method. Complete Blood Counton 05-16 Erythrocyte distribution width (RBC) [Ratio] 14.4 % Normal 11.0-15.0 [facility] [employer] Comment on above: Performed By: #### C BC #### [facility] [address], [place] [id number] Hematocrit (Bld) [Volume fraction] 44.4 % Normal 35.0-47.0 [facility] Comment on above: Performed By: #### C BC #### [facility] [address], [place] [id number] Hemoglobin (Bld) [Mass/Vol] 14.1 g/dL Normal 11.6-15.5 [facility] Comment on above: Performed By: #### C BC #### [facility] [address], [place] [id number] MCH (RBC) [Entitic mass] 28.3 pg Normal 27.0-33.0 [facility] Comment on above: Performed By: #### C BC #### [facility] [address], [place] [id number] MCHC (RBC) [Mass/Vol] 31.8 g/dL Low 32.0-36.0 [facility] Comment on above: Performed By: #### C BC #### [facility] [address], [place] [id number] MCV (RBC) [Entitic vol] 89 fL Normal 80-100 [facility] Comment on above: Performed By: #### C BC #### [facility] [address], [place] [id number] Platelet mean volume (Bld) [Entitic vol] 10.40 fL Normal 7.50-12.50 [facility] Comment on above: Performed By: #### C BC #### [facility] [address], [place] [id number] Platelets (Bld) [#/Vol] 555 10*3/uL High 140-400 [facility] Comment on above: Performed By: #### C BC #### [facility] [address], [place] [id number] RBC (Bld) [#/Vol] 4.99 10*6/uL Normal 3.90-5.20 [facility] Comment on above: Performed By: #### C BC #### [facility] [address], [place] [id number] RDW-SD 46.8 fL Normal 37.0-50.0 [facility] Comment on above: Performed By: #### C BC #### [facility] [address], [place] [id number] WBC (Bld) [#/Vol] 6.7 10*3/uL Normal 3.8-11.0 [facility] Comment on above: Performed By: #### C BC #### [facility] [address], [place] [id number] CNOVon 03-17-2021 CNOV Office Visit (CARDMN ) GLORIA ALLEN ([id number]) 1960 F Date Time Provider Department 03/17/21 [...] to seek emergency care. She wore a Trivie event monitor for 12 days in January [...] bearing down or coughing Occur 3x/week Wore Trivie event monitor for 12 days in 01/2021. [...] No sudden deaths, atrial fibrillation. 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 , 3 children, 1 grandchild. Lives in [place], [place] Habits: Tobacco: none. Alcohol: 1 drink [...] acid (RHIANNON (more content not included)... Normal [facility] 03-17-2021 CNPN Telephone (CARDMN) GLORIA ALLEN ([id number]) 1960 F Date Time Provider Department 03/17/21 NIKITA REYES During your visit today, we recorded the following information about you: Philly Nair 03/17/2021 4:06 PM Signed Outside medical records scanned into Remoov drive. Disk uploaded to [employer]: Echocardiogram 01/27/2021. Allergies As of Date: 03/17/2021 (Not on File) Date Reviewed: Never Reviewed Reason for Visit: Received Outside Medical Records [[id number]] Problem List As Of Date: 03/17/2021 (None) Encounter Status:Closed by PHILLY NAIR on 03/17/21 [facility] 12-31-2020 CNCO Letter Text [facility] CNPNon 12-30-2020 CNPN Telephone (REFPHY) GLORIA ALLEN ([id number]) 1960 F Date Time Provider Department 12/30/20 NO PCP (HISTORICAL) REFPHY During your visit today, we recorded the following information about you: Kyle Crowell 12/30/2020 9:12 AM Signed Patient: Gloria Allen Date of : 1960 Patient phone number: [phone] Referring Provider for the encounter: Zeus Lamas Requesting Provider: Nikita Reyes Reason for requesting visit (RFV/signs and symptoms/diagnosis): palpitations Person calling: via RP fax Return call to: self Medical Records/Insurance Card scanned into [employer]: No Comments: helder Boles 12/31/2020 10:34 AM Signed [employer] RP - Message left for patient to call back to schedule an appointment in EP? for Palpitations, requesting Dr. Reyes per RP referrals. Allergies As of Date: 12/30/2020 (Not on File) Date Reviewed: Never Reviewed Reason for Visit: External Referrals/resources [909] Problem List As Of Date: 12/30/2020 (None) Encounter Status:Closed by KYLE MUNOZ on 12/30/20 [facility] CNPNon 12-23-2020 CNPN Telephone (REFPHY) GLORIA ALLEN ([id number]) 1960 F Date Time Provider Department 12/23/20 NO ONE (HISTORICAL) REFPHY During your visit today, we recorded the following information about you: Alexandria Hernandez 12/23/2020 7:19 AM Signed Patient: Gloria Allen Date of : 1960 Patient phone number: [phone] Referring Provider for the encounter: Dr Zeus Lamas Requesting Provider: Dr Wesley Mallory - Cardiology Reason for requesting visit (RFV/signs and symptoms/diagnosis): Tachycardia, palipatations Person calling: caregiver: ASHLEY Return call to: self Medical Records/Insurance Card scanned into [employer]: Yes Comments: Additional records saved to [employer] Cheyenne Boles 12/23/2020 9:31 AM Signed [facility]TI [...] Status:Closed by ALEXANDRIA TERRY on 12/23/20 Normal [facility] Albumin [Mass/volume] in Ser um or PlasmaOrdered By: Rosa Romo on 12-16-2020 Albumin [Mass/Vol] 3.9 g/dL 2.9-4.4 [facility] Immunoglobulin light chains. kappa.free [Mass/volume] in SerumOrdered By: Rosa Romo on 12-16-2020 Immunoglobulin light chains.kappa.free (S) [Mass/Vol] 12.3 mg/L 3.3-19.4 [facility] Immunoglobulin light chains. kappa.free/Immunoglobulin light chains.lambda.free [MassOrdered By: Rosa Romo on 12-16-2020 Immunoglobulin light chains.kappa.free/Immu noglobulin light chains.lambda.free (S) [Mass ratio] 0.83 0.26-1.65 [facility] Comment on above: Performed at: [address] [id number] Casino Dealer: Osiel Combs PhD, Phone: [phone] Performed at: [address] [id number] Director: Osiel Combs PhD, Phone: [phone] Immunoglobulin light chains. lambda.free [Mass/volume] in Serum or PlasmaOrdered By: Rosa Romo on 12-16-2020 Immunoglobulin light chains.lambda.free [Mass/Vol] 14.8 mg/L 5.7-26.3 [facility] No Panel InformationOrdered By: Rosa Romo on 12-16-2020 25-Hydroxy Vitamin D Total 51.1 ng/mL 30-100 [facility] Comment on above: VITAMIN D STATUS [...] Electrophoresis M-Sonny Not observed g/dL Not Observed [facility] Protein Electrophoresis Note See comment . [facility] Comment on above: Protein electrophore sis scan will follow via computer, mail, or puppet developer delivery. Performed at: [facility] [address] [id number] Casino Dealer: Osiel Combs PhD, Phone: [phone] Protein electrophore sis scan will follow via computer,mail, or puppet developer delivery.Performed at: [facility] [address] [id number] Director: Osiel Combs PhD, Phone: [phone] Protein [Mass/volume] in Ser um or PlasmaOrdered By: Rosa Romo on 12-16-2020 Protein [Mass/Vol] 7.0 g/dL 6.0-8.5 [facility] Serum globulin measurement ( mass/volume)Ordered By: Rosa Romo on 12-16-2020 Globulin (S) [Mass/Vol] 3.1 g/dL 2.2-3.9 [facility] Serum or plasma albumin/glob ulin mass ratioOrdered By: Rosa Romo on 12-16-2020 Albumin/Globulin [Mass ratio] 1.3 {ratio} 0.7-1.7 [facility] Serum or plasma alpha 1 glob ulin measurement by electrophoresis (mass/volume)Ordered By: Rosa Romo on 12-16-2020 Alpha 1 globulin Elph [Mass/Vol] 0.2 g/dL 0.0-0.4 [facility] Serum or plasma alpha 2 glob ulin measurement by electrophoresis (mass/volume)Ordered By: Rosa Romo on 12-16-2020 Alpha 2 globulin Elph [Mass/Vol] 0.7 g/dL 0.4-1.0 [facility] Serum or plasma beta globuli n measurement by electrophoresis (mass/volume)Ordered By: Rosa Romo on 12-16-2020 Beta globulin Elph [Mass/Vol] 1.1 g/dL 0.7-1.3 [facility] Serum or plasma calcitriol m easurement (mass/volume)Ordered By: Rosa Romo on 12-16-2020 1,25-dihydroxyvitamin D3 [Mass/Vol] 60.1 pg/mL 19.9-79.3 [facility] Comment on above: Performed at: [facility] [address] [id number] Casino Dealer: Mitchell Glynn MD, Phone: [phone] Performed at: [facility] [address] [id number] Director: Mitchell Glynn MD, Phone: [phone] Serum or plasma gamma globul in measurement by electrophoresis (mass/volume)Ordered By: Rosa Romo on 12-16-2020 Gamma globulin Elph [Mass/Vol] 1.0 g/dL 0.4-1.8 [facility] Serum or plasma intact parat hyroid hormone measurement (mass/volume)Ordered By: Rosa Romo on 12-16-2020 Parathyrin.intact [Mass/Vol] 44.6 pg/mL 12- [facility] TSH DL <= 0.005 mIU/L QnOrde red By: Rosa Romo on 12-16-2020 TSH Qn 1.61 m[IU]/L 0.45-5.33 [facility] Thyroxine (T4) free [Mass/vo lume] in Serum or PlasmaOrdered By: Rosa Romo on 12-16-2020 Free T4 [Mass/Vol] 0.73 ng/dL 0.61-1.12 [facility] Activated partial thrombopla stin time (aPTT) in platelet poor plasma by coagulation aon 06-15-2020 aPTT Coag (PPP) [Time] 28.4 s 22.9-30.2 [facility] - Coagulationon 0 06-15-2020 PT Coag (PPP) [Time] 11.2 s 9.1-12.0 [facility] No Panel Informationon 06-15 Coagulation Factor VIII Activity 116 % 56-140 [facility] Platelet poor plasma interna tional normalized ratio (INR) by coagulation assay (relaton 06-15-2020 INR Coag (PPP) [Relative time] 1.1 {INR} 0.9-1.2 [facility] Comment on above: INR Therapeutic Rang [...] multimers IB Nom (PPP) See comment . [facility] Comment on above: VWF multimer analysi [...] developed and its performance characteristics determined by [employer]. It has not been cleared or approved by the Food and Drug Administration. Performed at: [facility] [address] [id number] Casino Dealer: Sivakumar Mejia MD, Phone: [phone] VWF multimer analysi s demonstrates a normal pattern anddistribution of bands. This is the pattern of multimersthat occurs in normal individuals as well as in those withtype 1 von Willebrand disease (VWD), type 2M and type 2NVWD. Some acquired von Willebrand syndrome cases may yielda normal pattern as well.No additional results available for further interpretation.This test was developed and its performance characteristicsdetermined by [employer]. It has not been cleared or approvedby the Food and Drug Administration.Performed at: [facility] [address] [id number] Director: Sivakumar Mejia MD, Phone: [phone] Von Willebrand factor activi ty measurementon 06-15-2020 vWf ristocetin cofactor act actual/normal Platelet aggregation (PPP) [Relative time] 62 % 50-200 [facility] Comment on above: Performed at: [facility] [address] [address] [id number] Casino Dealer: Mitchell Glynn MD, Phone: [phone] Performed at: [facility] [address] [id number] Director: Mitchell Glynn MD, Phone: [phone] Von Willebrand factor antige n measurementon 06-15-2020 vWf Ag Qn (PPP) 86 % 50-200 [facility] Comment on above: This test was develo ped and its performance characteristics determined by [facility]. It has not been cleared or approved by the Food and Drug Administration. This test was develo ped and its performance characteristicsdetermined by [facility]. It has not been cleared orapproved by the Food and Drug Administration. No Panel Informationon 06-04 BCR/abl See comment [facility] Comment on above: See report. Scanned copy available in EMR. Calreticulin Mutation See comment [facility] Comment on above: See report. Scanned copy available in EMR.See report. Scanned copy available in EMR. --- 06/11/20799 --- Calr previously reported as: See report. Scanned copy available in EMR. See report. Scanned copy available in EMR.See report. Scanned copy available in EMR. --- 06/11/20799 ---Calr previously reported as: See report. Scanned copy available in EMR. JAK2 [id number] See comment [facility] Comment on above: See report. Scanned [...] in EMR. MPL Mutation Analysis See comment [facility] Comment on above: See report. Scanned copy available in EMR. C reactive protein [Mass/vol ume] in Serum or Plasmaon 05-31-2020 CRP [Mass/Vol] < 0.5 mg/dL 0.0-1.0 [facility] - Hematology and Cell countson 05-31-2020 WBC (Bld) [#/Vol] 8.9 10*3/uL 4.5-11.0 [facility] Serum homogeneous pattern an tinuclear antibody (STEPHANIE) titeron 05-31-2020 Homogenous nuclear Ab pattern (S) [Titer] N/A [facility] Serum nuclear antibody titer on 05-31-2020 Nuclear Ab (S) [Titer] Negative . [facility] Comment on above: Negative <1:80 Borderline 1:80 Positive >1:80 Performed at: [employer] [address] [place], [place] [id number] Casino Dealer: Osiel Combs PhD, Phone: [phone] Negative <1:80 Borde rline 1:80 Positive >1:80Performed at: [facility] [address] [id number] Director: Osiel Combs PhD, Phone: [phone] Serum or plasma rheumatoid f actor measurement (units/volume)on 05-31-2020 Rheumatoid factor Qn [IU]/mL 0.0-13.9 [facility] Comment on above: Performed at: [employer] [place] [id number] Casino Dealer: Osiel Combs PhD, Phone: [phone] Performed at: [employer] [address] [id number] Director: Osiel Combs PhD, Phone: [phone] OVER READ - NCon 12-20-2017 OVER READ [...] extra arterial structures are otherwise unremarkable. Normal [facility] Healthcare Vital Signs Date Time Vital Sign Value Performing Clinician Faci lity 03-21-2023 11:110400 Body temperature 97.8 [degF] DO Zeus Matik Work Phone: [facility] 03-21-2023 11:11040 Body weight 74.38 kg DO Zeus Matik Work Phone: [facility] 03-21-2023 11:11-0400 Diastolic blood pressure 77 mm[Hg] DO Zeus Cristinachak Work Phone: [facility] 03-21-2023 11:11-0400 Heart rate 64 /min DO Zeus Cristinachak Work Phone: [facility] 03-21-2023 11:11-0400 Respiratory rate 16 /min DO Zeus Cristinachak Work Phone: [facility] 03-21-2023 11:11-0400 SaO2% (BldA) [Mass fraction] 98 % DO Zeus Cristinachak Work Phone: [facility] 03-21-2023 11:11-0400 Systolic blood pressure 132 mm[Hg] DO Zeus Vaschak Work Phone: [facility] 03-24-2022 11:17-0400 Body temperature 97.8 [degF] DO Zeus Cristinachak Work Phone: [facility] 03-24-2022 11:17-0400 Body weight 70.76 kg DO Zeus Cristinachak Work Phone: [facility] 03-24-2022 11:17-0400 Diastolic blood pressure 81 mm[Hg] DO Zeus Vaschak Work Phone: [facility] 03-24-2022 11:17-0400 Heart rate 58 /min DO Zeus Vaschak Work Phone: [facility] 03-24-2022 11:17-0400 Respiratory rate 16 /min DO Zeus Vaschak Work Phone: [facility] 03-24-2022 11:17-0400 SaO2% (BldA) [Mass fraction] 100 % DO Zeus Vaschak Work Phone: [facility] 03-24-2022 11:17-0400 Systolic blood pressure 133 mm[Hg] DO Zeus Vaschak Work Phone: [facility] 12-23-2021 14:43-0400 Body temperature 97.8 [degF] DO Zeus Vaschak Work Phone: [facility] 12-23-2021 14:43-0400 Body weight 69.85 kg DO Zeus Vaschak Work Phone: [facility] 12-23-2021 14:43-0400 Diastolic blood pressure 75 mm[Hg] DO Zeus Vaschak Work Phone: [facility] 12-23-2021 14:43-0400 Heart rate 62 /min DO Zeus Vaschak Work Phone: [facility] 12-23-2021 14:43-0400 Respiratory rate 16 /min DO Zeus Vaschak Work Phone: [facility] 12-23-2021 14:43-0400 SaO2% (BldA) [Mass fraction] 99 % DO Zeus Vaschak Work Phone: [facility] 12-23-2021 14:43-0400 Systolic blood pressure 126 mm[Hg] DO Zeus Vaschak Work Phone: [facility] 05-31-2020 13:09-0500 Body height 172.72 cm DO Zeus Lamas Work Phone: [facility] Encounters Encounter Date Encounter Type Care Provider Facility Start: 09-12-2023 ambulatory Rosa Demetrius Facility:[facility] Start: 09-11-2023 End: 09-11-2023 ambulatory Mckenzie Perkins Facility:[facility] Start: 09-11-2023 End: 09-11-2023 ambulatory DO Zeus Lamas Work Phone: [facility] Work Phone: Start: 09-11-2023 End: 09-11-2023 Patient encounter procedure DO Zeus Thornek Work Phone: [facility] Work Phone: Start: 06-05-2023 End: 06-05-2023 ambulatory MCKENZIE PERKINS Not Available Start: 03-21-2023 End: 03-21-2023 ambulatory DO Zeus Lamas Work Phone: [facility] Work Phone: Start: 03-21-2023 End: 03-21-2023 Registered Recurring DO Zeus Lamas Work Phone: [facility] Work Phone: Start: 03-19-2023 End: 03-19-2023 ambulatory Zeus Lamas Facility:[facility] Start: 03-19-2023 Encounter for genera l adult medical examination without abnormal findings Zeus Lamas [facility] Start: 03-19-2023 Registered Recurring DO Zeus Matik Work Phone: [facility] Work Phone: Start: 03-19-2023 End: 03-19-2023 ambulatory DO Zeus Matik Work Phone: [facility] Work Phone: Start: 03-19-2023 End: 03-19-2023 Patient encounter procedure DO Zeus Vaschak Work Phone: [facility] Work Phone: Start: 09-08-2022 End: 09-08-2022 ambulatory DO Zeus Lamas Work Phone: [facility] Work Phone: Start: 09-08-2022 End: 09-08-2022 Patient encounter procedure DO Zeus Lamas Work Phone: [facility] Work Phone: Start: 08-31-2022 End: 08-31-2022 ambulatory DO Zeus Lamas Work Phone: [facility] Work Phone: Start: 08-31-2022 End: 08-31-2022 Patient encounter procedure DO Zeus Lamas Work Phone: [facility] Work Phone: Start: 03-24-2022 End: 03-24-2022 ambulatory DO Zeus Lamas Work Phone: [facility] Work Phone: Start: 03-24-2022 End: 03-24-2022 Registered Recurring DO Zeus Lamas Work Phone: [facility] Start: 12-23-2021 End: 12-23-2021 Registered Recurring DO Zeus Lamas Work Phone: [facility] Start: 12-20-2021 End: 12-20-2021 Patient encounter procedure DO Zeus Lamas Work Phone: [facility] [place] Start: 12-20-2017 Patient encounter ZEUS LAMAS Fac [...] Detail Author Start: 12-23-2021 Registered Recurring Thrombocytosis [facility] Start: 09-28-2021 [facility] [facility] Start: 09-21-2021 [facility] Start: 08-19-2021 [facility] Comprehensive metabo lic 1999 panel - Serum or Plasma [facility] Work Phone: Comprehensive metabo lic 1999 panel - Serum or Plasma [facility] Comprehensive metabo lic 1999 panel - Serum or Plasma [facility] Payers Date Payer Category Payer Self-pay [id number] 2020 Unknown [id number] 2020 Unknown [id number] 1960 Unknown [id number] [id number] [id number] Unknown TIFFANY TENORIO Unknown [id number] 2.16.8 [id number] Unknown [id number] 2.16.8 [id number] Unknown [id number] 2.16.8 [id number] Social History Date Type Detail Facility Start: 12-23-2021 End: 03-24-2022 Tobacco smoking status NHIS Never smoked tobacco (finding) [facility] Start: 1960 Sex Assigned At Female F [facility] Clinical Notes 05-31-2020 to 03-24-2022 Note Date & Type Note Facility 03-24-2022 Progress note Note Date/Time March 24, 2022 11:23[facility] at [address] [address] Hem/Onc Follow Up Note - OP Signed Patient: Gloria Allen MR#: [id number] : 1960 Acct:[id number] Age/Sex: 61 / F Type: REG RCR [...] iron stores in one month (f/u with STOCK CHECKERER). If platelets < 450,000 at that time, [...] 03/24/22 @ 16:09 by Rosa Romo MD) [place] teeth removed - Family History Family History: [...] % (Auto) 66.6, Lymph % (Auto) 24.9, [place] % (Auto) 5.2, Eos % (Auto) 2.4, Baso % (Auto) 0.9, Neut # (Auto) 5.3, Lymph # (Auto) 2.0, [place] # (Auto) 0.4, Eos # (Auto) 0.2, [...] 4-6 weeks to review iron studies with STOCK CHECKERER, 4 month f/u CBC and determine cytoreduction [...] for coordination of care (as documented) and oqcb-sq-xvbw counseling of patient and/or family. Dictated By: Rosa Romo MD DD/ 21 Signed By: <Electronically signed by MD Rosa Romo> 03/24/22 1615 [facility] Work Phone: 1(365) 509-396907-30-2022 Progress note Author Rosa Romo [facility] December 24, 2021 4:39pm Note Date/Time December 23, 2021 2:49 pm [facility] [place] [address] Hem/Onc Follow Up Note - OP Signed Patient: Gloria Allen MR#: [id number] : 1960 Acct:[id number] Age/Sex: 61 / F Type: REG RCR [...] iron stores in one month (f/u with STOCK CHECKERER). If platelets < 450,000 at that time, [...] Negative for environmental allergies and food allergies. [facility] - History Attestation statement: The following information was validated with the patient. Source: Old Records Reviewed - Medical History Medical History: Medical History (Last Reviewed 12/24/21 @ 16:34 by Rosa Romo MD) delivery delivered - Surgical History Surgical History: Surgical History (Last Reviewed 12/24/21 @ 16:34 by Rosa Romo MD) [place] teeth removed - Family History Family History: [...] % (Auto) 63.2, Lymph % (Auto) 26.9, [place] % (Auto) 6.3, Eos % (Auto) 2.9, Baso % (Auto) 0.7, Neut # (Auto) 4.0, Lymph # (Auto) 1.7, [place] # (Auto) 0.4, Eos # (Auto) 0.2, [...] 4-6 weeks to review iron studies with STOCK CHECKERER, 4 month f/u CBC and determine cytoreduction [...] for coordination of care (as documented) and hxtu-bj-tgrw counseling of patient and/or family. Dictated By: Rosa Romo MD DD/ 1448 Signed By: <Electronically signed by MD Rosa Romo> 12/24/21 0787 [facility] Work Phone: 1(798) 217-245804-23-2022 Progress note Author Rosa Romo [facility] September 17, 2021 6:26pm Note Date/Time September 16, 2021 12: 45pm [facility] [place] at [address] [address] Hem/Onc Follow Up Note - OP Signed Patient: Gloria Allen MR#: [id number] : 1960 Acct:[id number] Age/Sex: 61 / F Type: REG RCR [...] iron stores in one month (f/u with STOCK CHECKERER). If platelets < 450,000 at that time, [...] Negative for environmental allergies and food allergies. [facility] - History Attestation statement: The following information was validated with the patient. Source: Old Records Reviewed - Medical History Medical History: Medical History (Last Reviewed 09/17/21 @ 18:19 by Rosa Romo MD) delivery delivered - Surgical History Surgical History: Surgical History (Last Reviewed 09/17/21 @ 18:19 by Rosa Romo MD) [place] teeth removed - Family History Family History: [...] 4-6 weeks to review iron studies with STOCK CHECKERER, 4 month f/u CBC and determine cytoreduction [...] for coordination of care (as documented) and dofm-lu-omfm counseling of patient and/or family. Dictated By: Rosa Romo MD DD/ 1245 Signed By: <Electronically signed by MD Rosa Romo> 09/17/21 1016 [facility] Work Phone: [phone] 342-592903-25-2022 Procedure [facility]03[facility]12-23-2021 Progress note Author Rosa Romo [facility] May 19, 2021 7:48pm Note Date/Time May 19, 2021 3:41pm [facility] at [address] [address] Hem/Onc Follow Up Note - OP Signed Patient: Gloria Allen MR#: [id number] : 1960 Acct:[id number] Age/Sex: 61 / F Type: REG RCR [...] Negative for environmental allergies and food allergies. [facility] - History Attestation statement: The following information was validated with the patient. Source: Old Records Reviewed - Medical History Medical History: Medical History (Last Reviewed 05/19/21 @ 15:43 by Rosa Romo MD) delivery delivered - Surgical History Surgical History: Surgical History (Last Reviewed 05/19/21 @ 15:43 by Rosa Romo MD) [place] teeth removed - Family History Family History: [...] 08:50 12/16/20 08:50 Outside Labs: Labs at [facility] laboratory: 05/16/2021: White blood cells 6700, [...] 2844 Dictated By: Zeus Lamas DO 03/16/21 6680 Assessment and Plan - TNM Staging Staging: [...] for coordination of care (as documented) and owct-ve-xuql counseling of patient and/or family. Dictated By: Rosa Romo MD DD/ 1534 Signed By: <Electronically signed by MD Rosa Romo> 05/19/211947 [facility] Work Phone: 1([phone]) 408-810510-21-2021 NoteHNO ID: [id number] Author: Nikita Reyes MD Service: ? Author [...] to seek emergency care. She wore a Trivie event monitor for 12 days in January [...] bearing down or coughing Occur 3x/week Wore Trivie event monitor for 12 days in 01/2021. [...] No sudden deaths, atrial fibrillation. 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 , 3 children, 1 grandchild. Lives in [place], [place] Habits: Tobacco: none. Alcohol: 1 drink [...] mg tablet T (more content not included)... [facility]08-03-2021 Progress note Author Rosa Romo [facility] December 28, 2020 7:12am Note Date/Time December 27, 2020 3:4 6pm [facility] [place] [address] Hem/Onc Follow Up Note - OP Signed Patient: Gloria Allen MR#: [id number] : 1960 Acct:[id number] Age/Sex: 60 / F Type: REG RCR [...] History (Last Reviewed 12/28/20 @ 07:08 by Roas Romo MD) [place] teeth removed - Family History Family History: [...] for coordination of care (as documented) and gttq-yp-jfyz counseling of patient and/or family. Dictated By: Rosa Romo MD DD/ 1545 Signed By: <Electronically signed by MD Rosa Romo> 12/28/20 0712 [facility] Work Phone: 1(898) 290-151104-20-2021 Progress note Author Rosa Romo [facility] September 14, 2020 7:40pm Note Date/Time September 13, 2020 4:0 3pm [facility] [place] [address] Hem/Onc Follow Up Note - OP Signed Patient: Gloria Allen MR#: [id number] : 1960 Acct:[id number] Age/Sex: 60 / F Type: REG RCR [...] Negative for environmental allergies and food allergies. [facility] - History Attestation statement: The following information was validated with the patient. Source: Old Records Reviewed - Medical History Medical History: Medical History (Last Reviewed 09/14/20 @ 19:34 by Rosa Romo MD) delivery delivered - Surgical History Surgical History: Surgical History (Last Reviewed 09/14/20 @ 19:34 by Rosa Romo MD) [place] teeth removed - Family History Family History: [...] % (Auto) 70.2, Lymph % (Auto) 19.6, [place] % (Auto) 7.3, Eos % (Auto) 2.3, Baso % (Auto) 0.6, Neut # (Auto) 6.0, Lymph # (Auto) 1.7, [place] # (Auto) 0.6, Eos # (Auto) 0.2, [...] for coordination of care (as documented) and zyzf-gl-dixx counseling of patient and/or family. Dictated By: Rosa Romo MD DD/ 4666 Signed By: <Electronically signed by MD Rosa Romo> 09/14/201939 [facility] Work Phone: 1(642) 377-678601-18-2021 Progress note Author Rosa Romo [facility] June 14, 2020 4:10pm Note Date/Time June 14, 2020 3 :26pm [facility] [place] [id number] Hem/Onc Follow Up Note - OP Signed Patient: Gloria Allen MR#: [id number] : 1960 Acct:[id number] Age/Sex: 60 / F Type: REG RCR [...] 06/14/20 @ 15:59 by Rosa Romo MD) [place] teeth removed - Family History Family History: [...] for coordination of care (as documented) and hsoa-ek-ksqn counseling of patient and/or family. Dictated By: Rosa Romo MD DD/ 1525 Signed By: <Electronically signed by MD Rosa Romo> 06/14/20 1610 [facility] Work Phone: 1(516) 617-949701-04-2021 Consult note Author Rosa Romo [facility] May 31, 2020 8:56pm Note Date/Time May 31, 2020 1: 29pm [facility] [place] [id number] Hem/Onc Consult Note - OP Signed Patient: Gloria Allen MR#: [id number] : 1960 Acct:[id number] Age/Sex: 60 / F Type: REG RCR [...] address epigastric pain with you in followup. [facility] - Medical History Medical History: Medical History (Last Reviewed 05/31/20 @ 20:40 by Rosa Romo MD) delivery delivered - Surgical History Surgical History: Surgical History (Last Reviewed 05/31/20 @ 20:40 by Rosa Romo MD) [place] teeth removed - Family History Family History: [...] for coordination of care (as documented) and dmok-eb-ssxa counseling of patient and/or family. Dictated By: Rosa Romo MD DD/ 1329 Signed By: <Electronically signed by MD Rosa Romo> 05/31/202055 [facility] Work Phone: Evaluation note* Diagnosis Onset Date Resolution Status Thrombocytosis acute Epigastric pain chronic Essential thrombocytosis chr onic Iron deficiency anemia chron ic [facility] Work Phone: Evaluation noteNo assessment information available [facility] Work Phone: Evaluation note* Diagnosis Onset Date Resolution Status Thrombocytosis acute Epigastric pain chronic Essential thrombocytosis chr onic Iron deficiency anemia resol chelly [facility] Work Phone: Progress note Author Rosa Romo [facility] December 24, 2021 4:39pm Note Date/Time December 23, 2021 2:49 pm [facility] at [address] [address] Hem/Onc Follow Up Note - OP Signed Patient: Gloria Allen MR#: [id number] : 1960 Acct:[id number] Age/Sex: 61 / F Type: REG RCR Copies to: Zeus aLmas DO~ Subjective Date/Time of Service: Date of [...] iron stores in one month (f/u with STOCK CHECKERER). If platelets < 450,000 at that time, [...] Negative for environmental allergies and food allergies. [facility] - History Attestation statement: The following information was validated with the patient. Source: Old Records Reviewed - Medical History Medical History: Medical History (Last Reviewed 12/24/21 @ 16:34 by Rosa Romo MD) delivery delivered - Surgical History Surgical History: Surgical History (Last Reviewed 12/24/21 @ 16:34 by Rosa Romo MD) [place] teeth removed - Family History Family History: [...] % (Auto) 63.2, Lymph % (Auto) 26.9, [place] % (Auto) 6.3, Eos % (Auto) 2.9, Baso % (Auto) 0.7, Neut # (Auto) 4.0, Lymph # (Auto) 1.7, [place] # (Auto) 0.4, Eos # (Auto) 0.2, [...] 4-6 weeks to review iron studies with STOCK CHECKERER, 4 month f/u CBC and determine cytoreduction [...] for coordination of care (as documented) and tkab-wt-lukd counseling of patient and/or family. Dictated By: Rosa Romo MD DD/ 1448 Signed By: <Electronically signed by MD Rosa Romo> 12/24/21 8407 [facility] Work Phone: Progress note Author Rsoa Romo [facility] March 24, 2022 4:15pm Note Date/Time March 24, 2022 1 1:23am [facility] [place] [address] Hem/Onc Follow Up Note - OP Signed Patient: Gloria Allen MR#: [id number] : 1960 Acct:[id number] Age/Sex: 61 / F Type: REG RCR [...] iron stores in one month (f/u with STOCK CHECKERER). If platelets < 450,000 at that time, [...] Negative for environmental allergies and food allergies. [facility] - History Attestation statement: The following information was validated with the patient. Source: Old Records Reviewed - Medical History Medical History: Medical History (Last Reviewed 03/24/22 @ 16:09 by Rosa Romo MD) delivery delivered - Surgical History Surgical History: Surgical History (Last Reviewed 03/24/22 @ 16:09 by Rosa Romo MD) [place] teeth removed - Family History Family History: [...] % (Auto) 66.6, Lymph % (Auto) 24.9, [place] % (Auto) 5.2, Eos % (Auto) 2.4, Baso % (Auto) 0.9, Neut # (Auto) 5.3, Lymph # (Auto) 2.0, [place] # (Auto) 0.4, Eos # (Auto) 0.2, [...] 4-6 weeks to review iron studies with STOCK CHECKERER, 4 month f/u CBC and determine cytoreduction [...] for coordination of care (as documented) and hzsd-jg-qpul counseling of patient and/or family. Dictated By: Rosa Romo MD DD/ 1122 Signed By: <Electronically signed by MD Rosa Romo> 03/24/22 161 [facility] Work Phone: Summary Purpose Family History [...] section and content) DATE CREATED AUTHOR 12/21/2017 [facility] DATE CREATED AUTHOR AUTHOR'S ORGANIZ ATION 05/16/2021 [facility] Special[facility] DATE CREATED AUTHOR AUTHOR'S ORGANIZ ATION 06/30/2021 [facility] DATE CREATED AUTHOR AUTHOR'S ORGANIZ ATION 06/06/2023 [facility] Specialists [facility] DATE CREATED AUTHOR AUTHOR'S ORGANIZ ATION 09/14/2023 [facility] Care Teams (unrecognized sec [...] ON THE PRIMARY CLINICAL RECORDS. [facility]. provides no warranty or guarantee of the accuracy or completeness of information in this document.
--- NOTE | 2023-12-11 09:37 | P.DS_ITS ---
Discharge Plan Discharge Disposition: Home, Self-Care Outpatient Diagnostics: VC INJ Sclerosing SOLMULT Vein (Routine) Timeframe: 2 Weeks Facility: [facility] - Location: Vein Center Ordered By: Corbin Shepherd Follow Up Appointments: 12/19/23 Plan of Treatment: Sclerotherapy Print Language: Icelandic Discharge Date/Time: 12/11/23 09:38
== END 2023-12-11 09:38 | disposition home or self-care (01) ==
PROVIDERS: PCP Radiology Diagnostic Radiology; Visit Provider Radiology Diagnostic Radiology
DX: I80.01 Phlebitis and thrombophlebitis of superficial vessels of right lower extremity (principal)
CPT/HCPCS: 93971; G0463

== ENCOUNTER 2023-12-19 11:00 | Outpatient (OUT) | payer OTHER, SELFPAY ==
--- NOTE | 2023-12-19 08:27 | VEINCLINIC_ITS ---
Vital Signs 12/19/23 08:33 12/19/23 11:05 Height 5 ft 8 in Weight 72.575 kg BP 104/58 BP Location Left Brachial BP Position Sitting BP Cuff Size Large Adult BP Source Manual Cuff Respiration 16 Pulse 98 H Pulse Source Monitor Pulse Oximetry (%) 99 Oxygen Delivery Method Room Air Varicose Veins Patient in this day for sclerotherapy Corbin Morejon MD personally performed the services described in this documentation, as scribed by Donald Corral RN in my presence and it is both accurate and complete. IDonald RN, am scribing for, and in the presence of, Dr. Corbin Shepherd and in the presence of the patient. thigh: bilateral, knee: bilateral, calf: bilateral, ankle: bilateral and cameron: bilateral aching and cramping 3 2 years Worsened in recent months: Yes standing and sitting bed rest, elevating extremities and compression stockings History of lower extremity trauma: No Superficial thrombophlebitis: No Family history of varicose veins: yes Has patient had previous lower extremity venous surgery: No Patient has previously received the following treatment(s) for lower extremity varicose veins: Reports none Does patient have a history of : yes Does patient intend to have future pregnancies: no Has patient had lower extremity venous scan with relux testing: Yes Support hose used: Yes Problems walking or doing physical activity: Yes How does it affect you: Symptoms have worsened in the past 2 years Do you walk much: Yes Do you stand much: Yes Medication compliance: good Large amounts of Vitamin K: No Review of Systems ROS Narrative Corbin Morejon MD personally performed the services described in this documentation, as scribed by Donald Corral RN in my presence and it is both accurate and complete. Donald Morejon RN, am scribing for, and in the presence of, Dr. Corbin Shepherd and in the presence of the patient. Status of ROS 10 or more systems reviewed and unremark able except as noted in history and below [facility] Medical History (Updated 12/11/23 @ 08:04 by Evie Castillo) Phlebitis and thrombophlebitis of superficial vessels of right lower extremity ?I80.01 - Phlebitis and thrombophlebitis of superficial vessels of right lower extremity (ICD-10) Hypercoagulable state ?D68.59 - Other primary thrombophilia (ICD-10) Varicose veins of bilateral lower extremities with pain ?I83.813 - Varicose veins of bilateral lower extremities with pain (ICD-10) Surgical History (Updated 12/04/23 @ 08:17 by Evie Hollis RN) H/O dilation and curettage ?Z98.890 - Other specified postprocedural states (ICD-10) Previous section ?Z98.891 - History of uterine scar from previous surgery (ICD-10) Family History (Updated 12/04/23 @ 08:18 by Evie Hollis RN) Aunt Varicose veins of bilateral lower extremities with pain Social History (Updated 12/04/23 @ 08:19 by Evie Hollis, RN) Within the past year, how often did you have a drink containing alcohol: monthly or less Smoking status: Never smoker Non-prescribed substance use: denies use Meds Home Medications and Allergies Home Medications ?Medication ?Instructions ?Recorded ?Confirmed ?Type aspirin 81 mg tablet,delayed 81 mg PO DAILY 12/04/23 12/04/23 History release (Adult Aspirin Regimen) cholecalciferol (vitamin D3) 25 25 mcg PO DAILY 12/04/23 12/04/23 History mcg (1,000 unit) capsule Allergies Allergy/AdvReac Type Severity Reaction Status Date / Time No Known Drug Allergies Allergy Verified 09/14/23 15:20 Exam Narrative Exam Narrative: Corbin Morejon MD personally performed the services described in this documentation, as scribed by Donald Corral RN in my presence and it is both accurate and complete. Donald Morejon RN, am scribing for, and in the presence of, Dr. Corbin Shepherd and in the presence of the patient.. Constitutional Documenting provider has reviewed patient's vital signs: yes Common normals: oriented x3 Lymph Lymphatic: no lymphedema noted Cardio Common normals: regular rate Rate: regular rate Peripheral pulses: posterior tibial pulses present and dorsalis pedis pulses present Extremity Common normals: normal capillary refill Neuro Common normals: oriented x3 Assessment and Plan Assessment and Plan (1) Varicose veins of bilateral lower extremities with pain: Plan F/U for more sclerotherapy 12/25/2023 Corbin Morejon MD personally performed the services described in this documentation, as scribed by Donald Corral RN in my presence and it is both accurate and complete. Donald Morejon RN, am scribing for, and in the presence of, Dr. Corbin Shepherd and in the presence of the patient. Procedures Procedure Instructions Procedures sclerotherapy: Risks and benefits of the procedure were discussed at length and informed written consent was obtained.? Time-out procedure was performed and the correct patient and procedure were confirmed.? Staff present during time-out: Donald Corral RN and Corbin Shepherd MD.? Patient prepped and procedure performed in usual sterile fashion. Injections performed by and Donald Corral RN Sclerosing Agent:?? 4cc 0.5% Polidocanol Site Injected: right leg Number of Injections: 29 Anesthesia: Supercooled air The patient tolerated the procedure well without complication.? Hemostasis was obtained and thigh-high compression stocking was applied by patient.? Instructed patient to wear stocking for at least 96 hours and sleep with it and only remove for showering.? Will wear stocking for 2 weeks.? The patient verbalizes understanding and states they will comply.? Patient was given post-procedure instructions. Patient was discharged in good condition.? Scheduled to undergo additional injection sclerotherapy on 12/25/2023 Corbin Morejon MD personally performed the services described in this documentation, as scribed by Donald Corral RN in my presence and it is both accurate and complete. Donald Morejon RN, am scribing for, and in the presence of, Dr. Corbin Shepherd and in the presence of the patient.
--- NOTE | 2023-12-19 08:30 | W.VEIN ---
Discharge Plan Discharge Disposition: Home, Self-Care Outpatient Diagnostics: VC INJ Sclerosing SOLMULT Vein (Routine) Timeframe: 2 Weeks Facility: [facility] - Location: Vein Center Ordered By: Corbin Shepherd Follow Up Appointments: 12/25/2023 Plan of Treatment: Sclerotherapy Patient Instructions: Polidocanol (By injection) (Chaitanya Lockett) Print Language: Arabic Discharge Date/Time: 12/19/23 12:00
--- NOTE | 2023-12-19 11:04 | VEIN_ITS ---
[address] [address] Patient Name: JONA ALLEN MRN: [id number] date: 1960 Sex: F Assigned Patient Location: [facility] Current Patient Location: Accession/Order Number: [id number] Exam Date: 12/19/2023 11:04 Report Date: 12/19/2023 13:24 At the request of: HEMANT MCHUGH Procedure: VC INJ Sclerosing SOLMULT Vein EXAMINATION: VC INJ Sclerosing SOLMULT Vein HISTORY: I83.813 -Varicose veins of bilat lower extremities with pain COMPARISON: No relevant comparison available. TECHNIQUE: The risks and benefits of the procedure were explained at length to the patient and informed written consent was obtained. Donald Corral was present and assisted. The procedure was performed under sterile technique. The patient's leg was wrapped with Coban and postprocedural verbal and written instructions provided. SCLEROSANT: 4 cc, 0.5% polidocanol VEIN(S) INJECTED: 29 veins in the right leg VISUALIZATION: Ultrasound was not used to visualize the sclerosant ANESTHESIA: Supercooled air COMPLICATIONS: None VEIN/VC INJ Sclerosing SOLMULT Vein IMPRESSION: Technically successful sclerotherapy as described Electronically authenticated by: HEMANT MCHUGH Date: 12/19/2023 13:24
[2023-12-19 11:05] VITALS: BP 104/58; PULSE 98; O2SAT 99
== END 2023-12-19 12:00 | disposition home or self-care (01) ==
LOC: VC 11:01
PROVIDERS: PCP Radiology Diagnostic Radiology; Visit Provider Radiology Diagnostic Radiology
DX: I83.813 Varicose veins of bilateral lower extremities with pain (principal)
CPT/HCPCS: 36471

== ENCOUNTER 2023-12-25 11:04 | Outpatient (OUT) | payer OTHER, SELFPAY ==
--- NOTE | 2023-12-25 07:28 | V.VEINS.HP ---
Varicose Veins Patient in this day for sclerotherapy Corbin Morejon MD personally performed the services described in this documentation, as scribed by Donald Corral RN in my presence and it is both accurate and complete. IDonald RN, am scribing for, and in the presence of, Dr. Corbin Shepherd and in the presence of the patient. thigh: bilateral, knee: bilateral, calf: bilateral, ankle: bilateral and cameron: bilateral aching and cramping 3 2 years Worsened in recent months: Yes standing and sitting bed rest, elevating extremities and compression stockings History of lower extremity trauma: No Superficial thrombophlebitis: No Family history of varicose veins: yes Has patient had previous lower extremity venous surgery: No Patient has previously received the following treatment(s) for lower extremity varicose veins: Reports none Does patient have a history of : yes Does patient intend to have future pregnancies: no Has patient had lower extremity venous scan with relux testing: Yes Support hose used: Yes Problems walking or doing physical activity: Yes How does it affect you: Symptoms have worsened in the past 2 years Do you walk much: Yes Do you stand much: Yes Medication compliance: good Large amounts of Vitamin K: No Review of Systems ROS Narrative Darleen, Corbin Shepherd MD personally performed the services described in this documentation, as scribed by Donald Corral RN in my presence and it is both accurate and complete. I, Donald Corral RN, am scribing for, and in the presence of, Dr. Corbin Shepherd and in the presence of the patient. Status of ROS 10 or more systems reviewed and unremarkable except as noted in history and below [facility] Medical History (Updated 12/11/23 @ 08:04 by Evie Castillo) Phlebitis and thrombophlebitis of superficial vessels of right lower extremity ?I80.01 - Phlebitis and thrombophlebitis of superficial vessels of right lower extremity (ICD-10) Hypercoagulable state ?D68.59 - Other primary thrombophilia (ICD-10) Varicose veins of bilateral lower extremities with pain ?I83.813 - Varicose veins of bilateral lower extremities with pain (ICD-10) Surgical History (Updated 12/04/23 @ 08:17 by Evie Hollis RN) H/O dilation and curettage ?Z98.890 - Other specified postprocedural states (ICD-10) Previous section ?Z98.891 - History of uterine scar from previous surgery (ICD-10) Family History (Updated 12/04/23 @ 08:18 by Evie Hollis RN) Aunt Varicose veins of bilateral lower extremities with pain Social History (Updated 12/04/23 @ 08:19 by Evie Hollis RN) Within the past year, how often did you have a drink containing alcohol: monthly or less Smoking status: Never smoker Non-prescribed substance use: denies use Meds Home Medications and Allergies Home Medications ?Medication ?Instructions ?Recorded ?Confirmed ?Type aspirin 81 mg tablet,delayed 81 mg PO DAILY 12/04/23 12/04/23 History release (Adult Aspirin Regimen) cholecalciferol (vitamin D3) 25 25 mcg PO DAILY 12/04/23 12/04/23 History mcg (1,000 unit) capsule Allergies Allergy/AdvReac Type Severity Reaction Status Date / Time No Known Drug Allergies Allergy Verified 09/14/23 15:20 Exam Narrative Exam Narrative: Corbin Morejon MD personally performed the services described in this documentation, as scribed by Donald Corral RN in my presence and it is both accurate and complete. IDonald RN, am scribing for, and in the presence of, Dr. Crobin Shepherd and in the presence of the patient.. Constitutional Documenting provider has reviewed patient's vital signs: yes Common normals: oriented x3 Lymph Lymphatic: no lymphedema noted Cardio Common normals: regular rate Rate: regular rate Peripheral pulses: posterior tibial pulses present and dorsalis pedis pulses present Extremity Common normals: normal capillary refill Neuro Common normals: oriented x3 Assessment and Plan Assessment and Plan Plan Patient to return for sclerotherapy 12/31/2023 Corbin Morejon MD personally performed the services described in this documentation, as scribed by Donald Corral RN in my presence and it is both accurate and complete. Donald Morejon RN, am scribing for, and in the presence of, Dr. Corbin Shepherd and in the presence of the patient. Procedures Procedure Instructions Procedures sclerotherapy: Risks and benefits of the procedure were discussed at length and informed written consent was obtained.? Time-out procedure was performed and the correct patient and procedure were confirmed.? Staff present during time-out: Donald Corral RN and Corbin Shepherd MD.? Patient prepped and procedure performed in usual sterile fashion. Injections performed by and Donald Corral RN Sclerosing Agent:?? 4cc 0.5% Polidocanol Site Injected: left leg Number of Injections: 24 Anesthesia: Supercooled air The patient tolerated the procedure well without complication.? Hemostasis was obtained and thigh-high compression stocking was applied by patient.? Instructed patient to wear stocking for at least 96 hours and sleep with it and only remove for showering.? Will wear stocking for 2 weeks.? The patient verbalizes understanding and states they will comply.? Patient was given post-procedure instructions. Patient was discharged in good condition.? Scheduled to undergo additional injection sclerotherapy on12/31/2023 ICorbin MD personally performed the services described in this documentation, as scribed by Donald Corral RN in my presence and it is both accurate and complete. Donald Morejon RN, am scribing for, and in the presence of, Dr. Corbin Shepherd and in the presence of the patient.
--- NOTE | 2023-12-25 07:30 | P.DS_ITS ---
Discharge Plan Discharge Disposition: Home, Self-Care Follow Up Appointments: 12/31/2023@1100 Plan of Treatment: Sclerotherapy Print Language: Icelandic Discharge Date/Time: 12/25/23 11:50
--- NOTE | 2023-12-25 11:04 | VEIN_ITS ---
[address] [address] Patient Name: JONA ALLEN MRN: [id number] date: 1960 Sex: F Assigned Patient Location: [facility] Current Patient Location: Accession/Order Number: [id number] Exam Date: 12/25/2023 11:05 Report Date: 12/25/2023 12:59 At the request of: HEMANT MCHUGH Procedure: VC INJ Sclerosing SOLMULT Vein EXAMINATION: VC INJ Sclerosing SOLMULT Vein HISTORY: I83.813 - Varicose veins of bilateral lower extremities w... COMPARISON: No relevant comparison available. TECHNIQUE: The risks and benefits of the procedure were explained at length to the patient and informed written consent was obtained. Donald Corral was present and assisted. The procedure was performed under sterile technique. The patient's leg was wrapped with Coban and postprocedural verbal and written instructions provided. SCLEROSANT: 4 cc, 0.5% polidocanol VEIN(S) INJECTED: 24 veins in the left leg VISUALIZATION: Ultrasound was not used to visualize the sclerosant ANESTHESIA: Supercooled air COMPLICATIONS: None VEIN/VC INJ Sclerosing SOLMULT Vein IMPRESSION: Technically successful sclerotherapy as described Electronically authenticated by: HEMANT MCHUGH Date: 12/25/2023 12:59
--- OUTSIDE RECORDS SUMMARY | 2023-12-25 11:17 | XMS_ITS | CCD ---
Author Organization [facility] Care Team Providers Care Employee Services Manager Name Role Phone ZEUS LAMAS Unavailable Unavailable ZEUS LAMAS Unavailable Unavailable ZEUS LAMAS Unavailable Unavailable DO Zeus Lamas Primary Care Provider DO Zeus Lamas Attending Provider [phone] DO Zeus Lamas Referring Provider [phone] MD Rosa Romo Attending Provider DO Zeus Lamas Primary Care Provider [phone] DO Zeus Lamas Referring Provider [phone] MD Rosa Romo Attending Provider DO Zeus Lamas Primary Care Provider [phone] DO Mckenzie Perkins Attending Provider DO Zeus Lamas Primary Care Provider DO Zeus Lamas Attending Provider [phone] DO Zeus Lamas Referring Provider MD Rosa Romo Attending Provider [phone] DO Zeus Lamas Referring Provider [phone] MD Rosa Romo Attending Provider [phone] MCKENZIE PERKINS Attending Unavailable DO Zeus [...] (Bld) [#/Vol] 0.1 10*3/uL Normal 0.0-0.2 [facility] Comment on above: Result Comment: PERF ORMED BY: [place] [id number] PATHOLOGIST BUS TRANSPORTATION MANAGER MIGUEL LARSEN M.D. Performed By: #### C BC, CMP #### [address] Basophils/100 WBC (Bld) 1.0 % Normal . [facility] Comment on above: Performed By: #### C BC, CMP #### [address] Eosinophils (Bld) [#/Vol] 0.3 10*3/uL Normal 0.0-0.45 [facility] Comment on above: Performed By: #### C BC, CMP #### [place] [address] Eosinophils/100 WBC (Bld) 4.8 % Normal . [facility] Comment on above: Performed By: #### C BC, CMP #### [address] Erythrocyte distribution width (RBC) [Ratio] 16.0 % High 11.9-15.3 [facility] Comment on above: Performed By: #### C BC, CMP #### [address] Hematocrit (Bld) [Volume fraction] 42.6 % Normal 34.0-46.4 [facility] Comment on above: Performed By: #### C BC, CMP #### [address] Hemoglobin (Bld) [Mass/Vol] 13.8 g/dL Normal 11.8-15.4 [facility] Comment on above: Performed By: #### C BC, CMP #### [address] Lymphocytes (Bld) [#/Vol] 2.3 10*3/uL Normal 1.00-4.8 [facility] Comment on above: Performed By: #### C BC, CMP #### [address] Lymphocytes/100 WBC (Bld) 32.7 % Normal . [facility] Comment on above: Performed By: #### C BC, CMP #### [address] MCH (RBC) [Entitic mass] 28.9 pg Normal 24.7-34.3 [facility] Comment on above: Performed By: #### C BC, CMP #### [address] MCV (RBC) [Entitic vol] 89.0 fL Normal 80-100 [facility] Comment on above: Performed By: #### C BC, CMP #### [address] Mean Corpuscular HGB Conc 32.5 g/dL Normal 32.0-35.0 [facility] Comment on above: Performed By: #### C BC, CMP #### [address] Monocytes (Bld) [#/Vol] 0.5 10*3/uL Normal 0.0-0.8 [facility] Comment on above: Performed By: #### C BC, CMP #### [address] Monocytes/100 WBC (Bld) 7.2 % Normal . [facility] Comment on above: Performed By: #### C BC, CMP #### [address] Neutrophils (Bld) [#/Vol] 3.9 10*3/uL Normal 1.8-7.7 [facility] Comment on above: Performed By: #### C BC, CMP #### [address] Neutrophils/100 WBC (Bld) 54.3 % Normal . [facility] Comment on above: Performed By: #### C BC, CMP #### [address] NRBC% 0.0 /100{WBC} Normal 0-0.5 [facility] Comment on above: Performed By: #### C BC, CMP #### [address] Platelet mean volume (Bld) [Entitic vol] 8.2 fL Normal 6.3-10.7 [facility] Comment on above: Performed By: #### C BC, CMP #### [address] Platelets (Bld) [#/Vol] 599 10*3/uL High 150-450 [facility] Comment on above: Performed By: #### C BC, CMP #### [address] RBC (Bld) [#/Vol] 4.78 10*6/uL Normal 3.60-5.00 [facility] Comment on above: Performed By: #### C BC, CMP #### [address] WBC (Bld) [#/Vol] 7.1 10*3/uL Normal 3.8-11.6 [facility] Comment on above: Performed By: #### C BC, CMP #### [address] Comprehensive Metabolic Pane douglas 09-12-2023 Albumin [Mass/Vol] 4.8 g/dL Normal 3.5-5.7 [facility] Comment on above: Performed By: #### C BC, CMP #### [address] Albumin/Globulin [Mass ratio] 2.2 {ratio} Normal [facility] Comment on above: Performed By: #### C BC, CMP #### [address] ALP [Catalytic activity/Vol] 56 U/L Normal 34-104 [facility] Comment on above: Performed By: #### C BC, CMP #### [address] ALT [Catalytic activity/Vol] 15 U/L Normal 7-52 [facility] Comment on above: Performed By: #### C BC, CMP #### [address] Anion gap [Moles/Vol] 9.3 mmol/L Normal 6.0-15.0 [facility] Comment on above: Performed By: #### C BC, CMP #### [address] AST [Catalytic activity/Vol] 21 U/L Normal 13-39 [facility] Comment on above: Performed By: #### C BC, CMP #### [address] Bilirubin [Mass/Vol] 1.2 mg/dL High 0.3-1.0 [facility] Comment on above: Performed By: #### C BC, CMP #### [address] Calcium [Mass/Vol] 10.3 mg/dL Normal 8.6-10.3 [facility] Comment on above: Performed By: #### C BC, CMP #### [address] Chloride [Moles/Vol] 103 mmol/L Normal 98-107 [facility] Comment on above: Performed By: #### C BC, CMP #### [address] CO2 [Moles/Vol] 32.3 mmol/L High 21.0-31.0 [facility] Comment on above: Performed By: #### C BC, CMP #### [address] Creatinine [Mass/Vol] 0.82 mg/dL Normal 0.60-1.20 [facility] Comment on above: Performed By: #### C BC, CMP #### [address] Creatinine Clr Calc Pharmacy 70.84 Normal [facility] Comment on above: Result Comment: PERF ORMED BY: [place] [address] PATHOLOGIST BUS TRANSPORTATION MANAGER MIGUEL LARSEN M.D. Performed By: #### C BC, CMP #### [address] GFR/1.73 sq M.predicted MDRD (S/P/Bld) [Vol rate/Area] mL/min/{1.73_m2} Normal [facility] Comment on above: Performed By: #### C BC, CMP #### [address] Globulin (S) [Mass/Vol] 2.2 g/dL Normal [facility] Comment on above: Performed By: #### C BC, CMP #### [address] [place] [address] [place] Glucose [Mass/Vol] 77 mg/dL Normal 70-100 [facility] Comment on above: Result Comment: [facility] Glucose Reference Range is dependent on time and content of last meal. Glucose of more than 200 mg/dL in a nonstressed, ambulatory subject supports the diagnosis of Diabetes Mellitus. ADA recommended reference range Performed By: #### C BC, CMP #### [facility] [address] Potassium [Moles/Vol] 4.6 mmol/L Normal 3.5-5.1 [facility] Comment on above: Performed By: #### C BC, CMP #### [facility] [address] Protein [Mass/Vol] 7.0 g/dL Normal 6.4-8.9 [facility] Comment on above: Performed By: #### C BC, CMP #### [address] Sodium [Moles/Vol] 140 mmol/L Normal 136-145 [facility] Comment on above: Performed By: #### C BC, CMP #### [address] Urea nitrogen [Mass/Vol] 18 mg/dL Normal 7-25 [facility] Comment on above: Performed By: #### C BC, CMP #### [address] MM screening mammo BI w/CADo n 09-11-2023 MM screening mammo BI w/CAD [facility] [place] [address] [place] [address] Mammography Report Signed Patient: Gloria Allen MR#: [id number] [birth year] : 1960 Acct:[id number] Age/Sex: 63 / F ADM Date: 09/11/23 Loc: [place] Room: Type: [facility] Attending Dr: Mckenzie Perkins DO Copies to: [...] Diana Matos M.D.09/11/2023 1:30 PM Dictation Location: [facility] Transcribed By: CHRISTOFER 09/11/23 1330 Dictated By: Diana Matos MD 09/11/23 1327 Signed By: 09/11/23 1330 Normal [facility] Alanine aminotransferase [En zymatic activity/volume] in Serum or PlasmaOrdered By: Rosa Romo on 03-19-2023 ALT [Catalytic activity/Vol] 13 U/L 7-52 [facility] Albumin [Mass/volume] in Ser um or Plasma by Bromocresol green (BCG) dye binding methoOrdered By: Rosa Romo on 03-19-2023 Albumin BCG dye [Mass/Vol] 4.5 g/dL 3.5-5.7 [facility] Alkaline phosphatase [Enzyma tic activity/volume] in Serum or PlasmaOrdered By: Rosa Romo on 03-19-2023 ALP [Catalytic activity/Vol] 56 U/L 34-104 [facility] Aspartate aminotransferase [ Enzymatic activity/volume] in Serum or PlasmaOrdered By: Rosa Romo on 03-19-2023 AST [Catalytic activity/Vol] 19 U/L 13-39 [facility] Basophils Auto (Bld) [#/Vol] Ordered By: Rosa Romo on 03-19-2023 Basophils (Bld) [#/Vol] 0.1 10*3/uL 0.0-0.2 [facility] Basophils/100 WBC Auto (Bld) Ordered By: Rosa Romo on 03-19-2023 Basophils/100 WBC (Bld) 0.9 % . [facility] Bilirubin.total [Mass/volume ] in Serum or PlasmaOrdered By: Rosa Romo on 03-19-2023 Bilirubin [Mass/Vol] 1.4 mg/dL 0.3-1.0 [facility] Comment on above: Samples from patient s who have taken Naproxen have shown spurious elevation in Total Bilirubin levels. A metabolite of Naproxen, O-desmethylnaproxen, has been shown to interfere with the Pop-Adeel method for measuring Total Bilirubin. Calcium [Mass/volume] in Ser um or PlasmaOrdered By: Rosa Romo on 03-19-2023 Calcium [Mass/Vol] 9.7 mg/dL 8.6-10.3 [facility] Carbon dioxide, total [Moles /volume] in Serum or PlasmaOrdered By: Rosa Romo on 03-19-2023 CO2 [Moles/Vol] 31.9 mmol/L 21.0-31.0 [facility] Chloride [Moles/volume] in S anne or PlasmaOrdered By: Rosa Romo on 03-19-2023 Chloride [Moles/Vol] 104 mmol/L 98-107 [facility] Cholesterol [Mass/volume] in Serum or PlasmaOrdered By: Zeus Lamas on 03-19-2023 Cholesterol [Mass/Vol] 179 mg/dL 140-200 [facility] Comment on above: Chol less than 200 m g/dl low riskChol 201-239 mg/dl borderline riskChol 240 mg/dl and greater high risk Cholesterol in LDL Calc [Mas s/Vol]Ordered By: Zeus Lamas on 03-19-2023 Cholesterol in LDL [Mass/Vol] 123 mg/dL 0-100 [facility] Comment on above: LDL ATP III CLASSIFI CATIONLDL less than 100 mg/dL OptimalLDL 100-129 mg/dL Near or above optimalLDL 130-159 mg/dL Borderline highLDL 160-189 mg/dL HighLDL greater than 189 mg/dL Very high Cholesterol in VLDL Calc [Ma ss/Vol]Ordered By: Zeus Lamas on 03-19-2023 Cholesterol in VLDL [Mass/Vol] 12 mg/dL [facility] Comprehensive Metabolic Pane douglas 03-19-2023 Albumin [Mass/Vol] 4.5 g/dL Normal 3.5-5.7 [facility] Comment on above: Order Comment: PT FA STED 12 HOURS Performed By: #### S CAN CBC, CMP #### [facility] [address] Albumin/Globulin [Mass ratio] 2.0 {ratio} Normal [facility] Comment on above: Order Comment: PT FA STED 12 HOURS Performed By: #### S CAN CBC, CMP #### [address] ALP [Catalytic activity/Vol] 56 U/L Normal 34-104 [facility] Comment on above: Order Comment: PT FA STED 12 HOURS Performed By: #### S CAN CBC, CMP #### [address] ALT [Catalytic activity/Vol] 13 U/L Normal 7-52 [facility] Comment on above: Order Comment: PT FA STED 12 HOURS Performed By: #### S CAN CBC, CMP #### [facility] [address] [place] [address] Anion gap [Moles/Vol] 9.3 mmol/L Normal 6.0-15.0 [facility] Comment on above: Order Comment: PT FA STED 12 HOURS Performed By: #### S CAN CBC, CMP #### [address] AST [Catalytic activity/Vol] 19 U/L Normal 13-39 [facility] Comment on above: Order Comment: PT FA STED 12 HOURS Performed By: #### S CAN CBC, CMP #### [address] Bilirubin [Mass/Vol] 1.4 mg/dL High 0.3-1.0 [facility] Comment on above: Order Comment: PT FA STED 12 HOURS Result Comment: Samp les from patients who have taken Naproxen have shown spurious elevation in Total Bilirubin levels. A metabolite of Naproxen, O-desmethylnaproxen, has been shown to interfere with the Jendrassik-Grof method for measuring Total Bilirubin. Performed By: #### S CAN CBC, CMP #### [address] Calcium [Mass/Vol] 9.7 mg/dL Normal 8.6-10.3 [facility] Comment on above: Order Comment: PT FA STED 12 HOURS Performed By: #### S CAN CBC, CMP #### [address] Chloride [Moles/Vol] 104 mmol/L Normal 98-107 [facility] Comment on above: Order Comment: PT FA STED 12 HOURS Performed By: #### S CAN CBC, CMP #### [place] [address] [place] CO2 [Moles/Vol] 31.9 mmol/L High 21.0-31.0 [facility] Comment on above: Order Comment: PT FA STED 12 HOURS Performed By: #### S CAN CBC, CMP #### [place] [address] [place] Creatinine [Mass/Vol] 0.77 mg/dL Normal 0.60-1.20 [facility] Comment on above: Order Comment: PT FA STED 12 HOURS Performed By: #### S CAN CBC, CMP #### [place] [address] [place] Creatinine Clr Calc Pharmacy 76.42 Normal [facility] Comment on above: Order Comment: PT FA STED 12 HOURS Result Comment: PERF ORMED BY: [place] [address] PATHOLOGIST BUS TRANSPORTATION MANAGER MIGUEL LARSEN M.D. Performed By: #### S CAN CBC, CMP #### [facility] [address] [place] [address] [place] GFR/1.73 sq M.predicted MDRD (S/P/Bld) [Vol rate/Area] mL/min/{1.73_m2} Normal [facility] Comment on above: Order Comment: PT FA STED 12 HOURS Performed By: #### S CAN CBC, CMP #### [facility] [address] [place] [address] [place] Globulin (S) [Mass/Vol] 2.2 g/dL Normal [facility] Comment on above: Order Comment: PT FA STED 12 HOURS Performed By: #### S CAN CBC, CMP #### [address] Glucose [Mass/Vol] 79 mg/dL Normal 70-100 [facility] Comment on above: Order Comment: PT FA STED 12 HOURS Result Comment: [place] Glucose Reference Range is dependent on time and content of last meal. Glucose of more than 200 mg/dL in a nonstressed, ambulatory subject supports the diagnosis of Diabetes Mellitus. ADA recommended reference range Performed By: #### S CAN CBC, CMP #### [place] [address] [place] Potassium [Moles/Vol] 4.2 mmol/L Normal 3.5-5.1 [facility] Comment on above: Order Comment: PT FA STED 12 HOURS Performed By: #### S CAN CBC, CMP #### [place] [address] [place] Protein [Mass/Vol] 6.7 g/dL Normal 6.4-8.9 [facility] Comment on above: Order Comment: PT FA STED 12 HOURS Performed By: #### S CAN CBC, CMP #### [place] [address] [place] Sodium [Moles/Vol] 141 mmol/L Normal 136-145 [facility] Comment on above: Order Comment: PT FA STED 12 HOURS Performed By: #### S CAN CBC, CMP #### [place] [address] [place] Urea nitrogen [Mass/Vol] 13 mg/dL Normal 7-25 [facility] Comment on above: Order Comment: PT FA STED 12 HOURS Performed By: #### S CAN CBC, CMP #### [facility] [address] Creatinine [Mass/volume] in Serum or PlasmaOrdered By: Rosa Romo on 03-19-2023 Creatinine [Mass/Vol] 0.77 mg/dL 0.60-1.20 [facility] Eosinophils Auto (Bld) [#/Vo l]Ordered By: Rosa Romo on 03-19-2023 Eosinophils (Bld) [#/Vol] 0.3 10*3/uL 0.0-0.45 [facility] Eosinophils/100 WBC Auto (Bl d)Ordered By: Rosa Romo on 03-19-2023 Eosinophils/100 WBC (Bld) 4.9 % . [facility] Erythrocyte distribution wid th Auto (RBC) [Ratio]Ordered By: Rosa Romo on 03-19-2023 Erythrocyte distribution width (RBC) [Ratio] 15.4 % 11.9-15.3 [facility] Globulin Calc (S) [Mass/Vol] Ordered By: Rosa Romo on 03-19-2023 Globulin (S) [Mass/Vol] 2.2 g/dL [facility] Glucose [Mass/volume] in Ser um or PlasmaOrdered By: Rosa Romo on 03-19-2023 Glucose [Mass/Vol] 79 mg/dL 70-100 [facility] Comment on above: ADA recommended refe rence rangeRandom Glucose Reference Range is dependent on time and content of last meal. Glucose of more than 200 mg/dL in a nonstressed, ambulatory subject supports the diagnosis of Diabetes Mellitus. Hematocrit Auto (Bld) [Volum e fraction]Ordered By: Rosa Romo on 03-19-2023 Hematocrit (Bld) [Volume fraction] 41.5 % 34.0-46.4 [facility] Hemoglobin [Mass/volume] in BloodOrdered By: Rosa Romo on 03-19-2023 Hemoglobin (Bld) [Mass/Vol] 13.7 g/dL 11.8-15.4 [facility] Leukocytes [#/volume] correc prema for nucleated erythrocytes in Blood by Automated counOrdered By: Rosa Romo on 03-19-2023 WBC corrected for nucl RBC Auto (Bld) [#/Vol] 6.5 10*3/uL 3.8-11.6 [facility] Lipid Panelon 03-19-2023 Cholesterol [Mass/Vol] 179 mg/dL Normal 140-200 [facility] Comment on above: Order Comment: PT FA STED 12 HOURS Result Comment: Chol less than 200 mg/dl low risk Chol 201-239 mg/dl borderline risk Chol 240 mg/dl and greater high risk Performed By: #### L IPID #### [facility] [address] [place] [id number] [place] Cholesterol in HDL [Mass/Vol] 44 mg/dL Normal 23-92 [facility] Comment on above: Order Comment: PT FA STED 12 HOURS Result Comment: HDL CHOL ATP-III CLASSIFICATION Cardiovascular Risk HDL > or equal to 60 mg/dL LOW HDL < 40 mg/dL HIGH Performed By: #### L IPID #### [facility] [address] [place] [address] [place] Cholesterol.total/Chol esterol in HDL [Mass ratio] 4.1 {ratio} Normal <5.0 [facility] Comment on above: Order Comment: PT FA STED 12 HOURS Result Comment: PERF ORMED BY: [place] [address] PATHOLOGIST BUS TRANSPORTATION MANAGER MIGUEL LARSEN M.D. Performed By: #### L IPID #### [facility] [address] [place] [id number] [place] LDL Cholesterol,Calculated 123 mg/dL High 0-100 [facility] Comment on above: Order Comment: PT FA STED 12 HOURS Result Comment: LDL ATP III CLASSIFICATION LDL less than 100 mg/dL Optimal LDL 100-129 mg/dL Near or above optimal LDL 130-159 mg/dL Borderline high LDL 160-189 mg/dL High LDL greater than 189 mg/dL Very high Performed By: #### L IPID #### [facility] [address] [place] [address] [place] Triglyceride w/Reflex 62 mg/dL Normal 0-149 [facility] Comment on above: Order Comment: PT FA STED 12 HOURS Result Comment: TRIG ATP III CLASSIFICATION TRIG less than 150 mg/dL Normal TRIG 150-199 mg/dL Borderline high TRIG 200-500 mg/dL High TRIG greater than 500 mg/dL Very high Standard traceable to the Center for Disease Conrtrol and Prevention (CDC) test method. Performed By: #### L IPID #### [facility] [address] VLDL CHOLESTEROL 12 mg/dL Normal [facility] Comment on above: Order Comment: PT FA STED 12 HOURS Performed By: #### L IPID #### [facility] [address] Lymphocytes Auto (Bld) [#/Vo l]Ordered By: Rosa Romo on 03-19-2023 Lymphocytes (Bld) [#/Vol] 2.1 10*3/uL 1.00-4.8 [facility] Lymphocytes/100 WBC Auto (Bl d)Ordered By: Rosa Romo on 03-19-2023 Lymphocytes/100 WBC (Bld) 32.8 % . [facility] MCH Auto (RBC) [Entitic mass ]Ordered By: Rosa Romo on 03-19-2023 MCH (RBC) [Entitic mass] 28.8 pg 24.7-34.3 [facility] MCHC Auto (RBC) [Mass/Vol]Or dered By: Rosa Romo on 03-19-2023 MCHC (RBC) [Mass/Vol] 33.1 g/dL 32.0-35.0 [facility] MCV Auto (RBC) [Entitic vol] Ordered By: Rosa Romo on 03-19-2023 MCV (RBC) [Entitic vol] 87.1 fL 80-100 [facility] Monocytes Auto (Bld) [#/Vol] Ordered By: Rosa Romo on 03-19-2023 Monocytes (Bld) [#/Vol] 0.5 10*3/uL 0.0-0.8 [facility] Monocytes/100 WBC Auto (Bld) Ordered By: Rosa Romo on 03-19-2023 Monocytes/100 WBC (Bld) 7.3 % . [facility] Neutrophils Auto (Bld) [#/Vo l]Ordered By: Rosa Romo on 03-19-2023 Neutrophils (Bld) [#/Vol] 3.5 10*3/uL 1.8-7.7 [facility] Neutrophils/100 WBC Auto (Bl d)Ordered By: Rosa Romo on 03-19-2023 Neutrophils/100 WBC (Bld) 54.1 % . [facility] No Panel InformationOrdered By: Rosa Romo on 03-19-2023 Estimated GFR (CKD-EPI) > 60.0 mL/Min [facility] Creatinine Clearance (Chem 76.42 [facility] Nucleated erythrocytes [Pres ence] in Blood by Automated countOrdered By: Rosa Romo on 03-19-2023 Nucleated RBC Auto Ql (Bld) 0.0 /100{WBC} 0-0.5 [facility] Platelet adequacy [Presence] in Blood by Light microscopyOrdered By: Rosa Romo on 03-19-2023 Platelets LM Ql (Bld) Increased Normal [facility] Platelet mean volume Auto (B ld) [Entitic vol]Ordered By: Rosa Romo on 03-19-2023 Platelet mean volume (Bld) [Entitic vol] 8.5 fL 6.3-10.7 [facility] Platelet morphology finding [Identifier] in BloodOrdered By: Rosa Romo on 03-19-2023 Platelet morphology finding Nom (Bld) Normal Normal [facility] Platelets Auto (Bld) [#/Vol] Ordered By: Rosa Romo on 03-19-2023 Platelets (Bld) [#/Vol] 537 10*3/uL 150-450 [facility] Potassium [Moles/volume] in Serum or PlasmaOrdered By: Rosa Romo on 03-19-2023 Potassium [Moles/Vol] 4.2 mmol/L 3.5-5.1 [facility] Protein [Mass/volume] in Ser um or PlasmaOrdered By: Rosa Romo on 03-19-2023 Protein [Mass/Vol] 6.7 g/dL 6.4-8.9 [facility] RBC Auto (Bld) [#/Vol]Ordere d By: Rosa Romo on 03-19-2023 RBC (Bld) [#/Vol] 4.76 10*6/uL 3.60-5.00 [facility] RBC morphologyOrdered By: Rosie Romo on 03-19-2023 RBC morphology finding Nom (Bld) Normal Normal [facility] Scan and CBCon 03-19-2023 Basophils (Bld) [#/Vol] 0.1 10*3/uL Normal 0.0-0.2 [facility] Comment on above: Performed By: #### S CAN CBC, CMP #### [facility] [address] [place] [address] [place] Basophils/100 WBC (Bld) 0.9 % Normal . [facility] Comment on above: Performed By: #### S CAN CBC, CMP #### [facility] [address] [place] [address] [place] Eosinophils (Bld) [#/Vol] 0.3 10*3/uL Normal 0.0-0.45 [facility] Comment on above: Performed By: #### S CAN CBC, CMP #### [facility] [address] [place] [id number] [place] Eosinophils/100 WBC (Bld) 4.9 % Normal . [facility] Comment on above: Performed By: #### S CAN CBC, CMP #### [facility] [address] Erythrocyte distribution width (RBC) [Ratio] 15.4 % High 11.9-15.3 [facility] Comment on above: Performed By: #### S CAN CBC, CMP #### [facility] [address] [place] [id number] [place] Hematocrit (Bld) [Volume fraction] 41.5 % Normal 34.0-46.4 [facility] Comment on above: Performed By: #### S CAN CBC, CMP #### [facility] [address] [place] [address] [place] Hemoglobin (Bld) [Mass/Vol] 13.7 g/dL Normal 11.8-15.4 [facility] [facility] Comment on above: Performed By: #### S CAN CBC, CMP #### [facility] [address] Lymphocytes (Bld) [#/Vol] 2.1 10*3/uL Normal 1.00-4.8 [facility] Comment on above: Performed By: #### S CAN CBC, CMP #### [address] Lymphocytes/100 WBC (Bld) 32.8 % Normal . [facility] Comment on above: Performed By: #### S CAN CBC, CMP #### [address] MCH (RBC) [Entitic mass] 28.8 pg Normal 24.7-34.3 [facility] Comment on above: Performed By: #### S CAN CBC, CMP #### [address] MCV (RBC) [Entitic vol] 87.1 fL Normal 80-100 [facility] Comment on above: Performed By: #### S CAN CBC, CMP #### [address] Mean Corpuscular HGB Conc 33.1 g/dL Normal 32.0-35.0 [facility] Comment on above: Performed By: #### S CAN CBC, CMP #### [address] Monocytes (Bld) [#/Vol] 0.5 10*3/uL Normal 0.0-0.8 [facility] Comment on above: Performed By: #### S CAN CBC, CMP #### [place] [address] [place] Monocytes/100 WBC (Bld) 7.3 % Normal . [facility] Comment on above: Performed By: #### S CAN CBC, CMP #### [address] Neutrophils (Bld) [#/Vol] 3.5 10*3/uL Normal 1.8-7.7 [facility] Comment on above: Performed By: #### S CAN CBC, CMP #### [address] Neutrophils/100 WBC (Bld) 54.1 % Normal . [facility] Comment on above: Performed By: #### S CAN CBC, CMP #### [address] NRBC% 0.0 /100{WBC} Normal 0-0.5 [facility] Comment on above: Performed By: #### S CAN CBC, CMP #### [address] Platelet Estimate Increased Normal Normal [facility] Comment on above: Performed By: #### S CAN CBC, CMP #### [address] Platelet mean volume (Bld) [Entitic vol] 8.5 fL Normal 6.3-10.7 [facility] Comment on above: Performed By: #### S CAN CBC, CMP #### [address] Platelet Morphology Normal Normal Normal [facility] Comment on above: Result Comment: PERF ORMED BY: [place] [id number] PATHOLOGIST [employer] TRANSPORTATION MANAGER MIGUEL LARSEN M.D. Performed By: #### S CAN CBC, CMP #### [address] Platelets (Bld) [#/Vol] 537 10*3/uL High 150-450 [facility] Comment on above: Performed By: #### S CAN CBC, CMP #### [address] RBC (Bld) [#/Vol] 4.76 10*6/uL Normal 3.60-5.00 [facility] Comment on above: Performed By: #### S CAN CBC, CMP #### [address] RBC morphology finding Nom (Bld) Normal Normal Normal [facility] Comment on above: Performed By: #### S CAN CBC, CMP #### [facility] [address] WBC (Bld) [#/Vol] 6.5 10*3/uL Normal 3.8-11.6 [facility] Comment on above: Performed By: #### S CAN CBC, CMP #### [facility] [address] Serum or plasma albumin/glob ulin mass ratioOrdered By: Rosa Romo on 03-19-2023 Albumin/Globulin [Mass ratio] 2.0 {ratio} [facility] Serum or plasma anion gap de terminationOrdered By: Rosa Romo on 03-19-2023 Anion gap [Moles/Vol] 9.3 mmol/L 6.0-15.0 [facility] Serum or plasma high density lipoprotein (HDL) cholesterol measurementOrdered By: Zeus Lamas on 03-19-2023 Cholesterol in HDL [Mass/Vol] 44 mg/dL [facility] Comment on above: HDL CHOL ATP-III CLA SSIFICATION Cardiovascular RiskHDL > or equal to 60 mg/dL LOWHDL < 40 mg/dL HIGH Serum or plasma total choles terol/high density lipoprotein (HDL) cholesterol mass ratOrdered By: Zeus Lamas on 03-19-2023 Cholesterol.total/Chol esterol in HDL [Mass ratio] 4.1 {ratio} <5.0 [facility] Sodium [Moles/volume] in Ser um or PlasmaOrdered By: Rosa Romo on 03-19-2023 Sodium [Moles/Vol] 141 mmol/L 136-145 [facility] Triglyceride [Mass/volume] i n Serum or PlasmaOrdered By: Zeus Lamas on 03-19-2023 Triglyceride [Mass/Vol] 62 mg/dL 0-149 [facility] Comment on above: TRIG ATP III CLASSIF ICATIONTRIG less than 150 mg/dL NormalTRIG 150-199 mg/dL Borderline highTRIG 200-500 mg/dL High TRIG greater than 500 mg/dL Very highStandard traceable to the Center for Disease Conrtrol and Prevention (CDC) test method. Urea nitrogen [Mass/volume] in Serum or PlasmaOrdered By: Rosa Romo on 03-19-2023 Urea nitrogen [Mass/Vol] 13 mg/dL 7 [facility] WBC Auto (Bld) [#/Vol]Ordere d By: Rosa Romo on 03-19-2023 WBC (Bld) [#/Vol] 6.5 10*3/uL 3.8-11.6 [facility] Complete Blood Count Auto Di ffon 09-22-2022 Basophils (Bld) [#/Vol] 0.1 10*3/uL Normal 0.0-0.2 [facility] Comment on above: Result Comment: PERF ORMED BY: [place] [address] PATHOLOGIST [employer] TRANSPORTATION MANAGER MIGUEL LARSEN M.D. Performed By: #### C BC #### [address] Basophils/100 WBC (Bld) 0.7 % Normal . [facility] Comment on above: Performed By: #### C BC #### [address] Eosinophils (Bld) [#/Vol] 0.3 10*3/uL Normal 0.0-0.45 [facility] Comment on above: Performed By: #### C BC #### [address] Eosinophils/100 WBC (Bld) 4.4 % Normal . [facility] Comment on above: Performed By: #### C BC #### [address] Erythrocyte distribution width (RBC) [Ratio] 14.7 % Normal 11.9-15.3 [facility] Comment on above: Performed By: #### C BC #### [address] Hematocrit (Bld) [Volume fraction] 42.0 % Normal 34.0-46.4 [facility] Comment on above: Performed By: #### C BC #### [address] Hemoglobin (Bld) [Mass/Vol] 13.7 g/dL Normal 11.8-15.4 [facility] Comment on above: Performed By: #### C BC #### [address] Lymphocytes (Bld) [#/Vol] 1.8 10*3/uL Normal 1.00-4.8 [facility] Comment on above: Performed By: #### C BC #### [address] Lymphocytes/100 WBC (Bld) 22.7 % Normal . [facility] Comment on above: Performed By: #### C BC #### [address] MCH (RBC) [Entitic mass] 28.8 pg Normal 24.7-34.3 [facility] Comment on above: Performed By: #### C BC #### [address] MCV (RBC) [Entitic vol] 88.4 fL Normal 80-100 [facility] Comment on above: Performed By: #### C BC #### [address] Mean Corpuscular HGB Conc 32.6 g/dL Normal 32.0-35.0 [facility] Comment on above: Performed By: #### C BC #### [address] Monocytes (Bld) [#/Vol] 0.5 10*3/uL Normal 0.0-0.8 [facility] Comment on above: Performed By: #### C BC #### [address] Monocytes/100 WBC (Bld) 6.5 % Normal . [facility] Comment on above: Performed By: #### C BC #### [address] Neutrophils (Bld) [#/Vol] 5.1 10*3/uL Normal 1.8-7.7 [facility] Comment on above: Performed By: #### C BC #### [facility] [address] Neutrophils/100 WBC (Bld) 65.7 % Normal . [facility] Comment on above: Performed By: #### C BC #### [facility] [address] NRBC% 0.1 /100{WBC} Normal 0-0.5 [facility] Comment on above: Performed By: #### C BC #### [address] Platelet mean volume (Bld) [Entitic vol] 8.5 fL Normal 6.3-10.7 [facility] Comment on above: Performed By: #### C BC #### [address] Platelets (Bld) [#/Vol] 551 10*3/uL High 150-450 [facility] Comment on above: Performed By: #### C BC #### [address] RBC (Bld) [#/Vol] 4.75 10*6/uL Normal 3.60-5.00 [facility] Comment on above: Performed By: #### C BC #### [address] WBC (Bld) [#/Vol] 7.7 10*3/uL Normal 3.8-11.6 [facility] Comment on above: Performed By: #### C BC #### [place] [address] [place] Basophils Auto (Bld) [#/Vol] Ordered By: Rosa Romo on 03-22-2022 Basophils (Bld) [#/Vol] 0.1 10*3/uL 0.0-0.2 [facility] Basophils/100 WBC Auto (Bld) Ordered By: Rosa Romo on 03-22-2022 Basophils/100 WBC (Bld) 0.9 % . [facility] Body fluid albumin measureme nt (mass/volume)Ordered By: Rosa Romo on 03-22-2022 Albumin (Body fld) [Mass/Vol] 4.3 g/dL 3.2-5.5 [facility] Creatinine and Glomerular fi ltration rate.predicted panel (S/P/Bld)Ordered By: Rosa Romo on 03-22-2022 Creatinine [Mass/Vol] 0.79 mg/dL 0.44-1.03 [facility] Eosinophils Auto (Bld) [#/Vo l]Ordered By: Rosa Romo on 03-22-2022 Eosinophils (Bld) [#/Vol] 0.2 10*3/uL 0.0-0.45 [facility] Eosinophils/100 WBC Auto (Bl d)Ordered By: Rosa Romo on 03-22-2022 Eosinophils/100 WBC (Bld) 2.4 % . [facility] Erythrocyte distribution wid th Auto (RBC) [Ratio]Ordered By: Rosa Romo on 03-22-2022 Erythrocyte distribution width (RBC) [Ratio] 14.7 % 11.9-15.3 [facility] Estimated glomerular filtrat ion rate (GFR) non- AmericanOrdered By: Rosa Romo on 03-22-2022 GFR/1.73 sq M.predicted among non-blacks MDRD (S/P/Bld) [Vol rate/Area] > 60 mL/Min [facility] Globulin Calc (S) [Mass/Vol] Ordered By: Rosa Romo on 03-22-2022 Globulin (S) [Mass/Vol] 2.2 g/dL [facility] Hematocrit Auto (Bld) [Volum e fraction]Ordered By: Rosa Romo on 03-22-2022 Hematocrit (Bld) [Volume fraction] 41.9 % 34.0-46.4 [facility] Hemoglobin [Mass/volume] in BloodOrdered By: Rosa Romo on 03-22-2022 Hemoglobin (Bld) [Mass/Vol] 13.6 g/dL 11.8-15.4 [facility] Laboratory - Hematology and Cell countsOrdered By: Rosa Romo on 03-22-2022 Nucleated RBC/100 WBC (Bld) [Ratio] 0.0 % 0-0.5 [facility] Leukocytes [#/volume] in Blo od by Automated countOrdered By: Rosa Romo on 03-22-2022 WBC (Bld) [#/Vol] 8.0 10*3/uL 4.5-11.0 [facility] Lymphocytes Auto (Bld) [#/Vo l]Ordered By: Rosa Romo on 03-22-2022 Lymphocytes (Bld) [#/Vol] 2.0 10*3/uL 1.00-4.8 [facility] Lymphocytes/100 WBC Auto (Bl d)Ordered By: Rosa Romo on 03-22-2022 Lymphocytes/100 WBC (Bld) 24.9 % . [facility] MCH Auto (RBC) [Entitic mass ]Ordered By: Rosa Romo on 03-22-2022 MCH (RBC) [Entitic mass] 29.4 pg 24.7-34.3 [facility] MCHC Auto (RBC) [Mass/Vol]Or dered By: Rosa Romo on 03-22-2022 MCHC (RBC) [Mass/Vol] 32.5 g/dL 32.0-35.0 [facility] MCV Auto (RBC) [Entitic vol] Ordered By: Rosa Romo on 03-22-2022 MCV (RBC) [Entitic vol] 90.4 fL 80-100 [facility] Monocytes Auto (Bld) [#/Vol] Ordered By: Rosa Romo on 03-22-2022 Monocytes (Bld) [#/Vol] 0.4 10*3/uL 0.0-0.8 [facility] Monocytes/100 WBC Auto (Bld) Ordered By: Rosa Romo on 03-22-2022 Monocytes/100 WBC (Bld) 5.2 % . [facility] Neutrophils Auto (Bld) [#/Vo l]Ordered By: Rosa Romo on 03-22-2022 Neutrophils (Bld) [#/Vol] 5.3 10*3/uL 1.8-7.7 [facility] Neutrophils/100 WBC Auto (Bl d)Ordered By: Rosa Romo on 03-22-2022 Neutrophils/100 WBC (Bld) 66.6 % . [facility] No Panel InformationOrdered By: Rosa Romo on 03-22-2022 Estimated GFR () > 60 mL/Min [facility] Comment on above: GFR estimated refere nce range: According to KDOQI guidelines, <60 ml/min/1.73m2 is sufficient to diagnose a patient with chronic kidney disease. Pharmacy Creatinine Clearance (Chem 75.44 [facility] Platelet mean volume Auto (B ld) [Entitic vol]Ordered By: Rosa Romo on 03-22-2022 Platelet mean volume (Bld) [Entitic vol] 8.3 fL 6.3-10.7 [facility] Platelets Auto (Bld) [#/Vol] Ordered By: Rosa Romo on 03-22-2022 Platelets (Bld) [#/Vol] 506 10*3/uL 150-450 [facility] Protein [Mass/volume] in Ser um or PlasmaOrdered By: Rosa Romo on 03-22-2022 Protein [Mass/Vol] 6.5 g/dL 6.1-7.9 [facility] RBC Auto (Bld) [#/Vol]Ordere d By: Rosa Romo on 03-22-2022 RBC (Bld) [#/Vol] 4.63 10*6/uL 3.60-5.00 [facility] Serum or plasma alanine black otransferase measurement without P-5'-P (enzymatic activiOrdered By: Rosa Romo on 03-22-2022 ALT No additional P-5'-P [Catalytic activity/Vol] 17 U/L 10-60 [facility] Serum or plasma albumin/glob ulin mass ratioOrdered By: Rosa Romo on 03-22-2022 Albumin/Globulin [Mass ratio] 2.0 {ratio} [facility] Serum or plasma alkaline laurie sphatase measurement (enzymatic activity/volume)Ordered By: Rosa Romo on 03-22-2022 ALP [Catalytic activity/Vol] 56 U/L 32-92 [facility] Serum or plasma anion gap de terminationOrdered By: Rosa Romo on 03-22-2022 Anion gap [Moles/Vol] 11.6 mmol/L 6.0-15.0 [facility] Serum or plasma aspartate am inotransferase measurement (enzymatic activity/volume)Ordered By: Rosa Romo on 03-22-2022 AST [Catalytic activity/Vol] 22 U/L 10-42 [facility] Serum or plasma calcium los urement (mass/volume)Ordered By: Rosa Romo on 03-22-2022 Calcium [Mass/Vol] 9.7 mg/dL 8.2-10.2 [facility] Serum or plasma chloride theresa surement (moles/volume)Ordered By: Rosa Romo on 03-22-2022 Chloride [Moles/Vol] 100 mmol/L 95-114 [facility] Serum or plasma glucose los urement (mass/volume)Ordered By: Rosa Romo on 03-22-2022 Glucose [Mass/Vol] 123 mg/dL 70-100 [facility] Comment on above: ADA recommended refe rence rangeRandom Glucose Reference Range is dependent on time and content of last meal. Glucose of more than 200 mg/dL in a nonstressed, ambulatory subject supports the diagnosis of Diabetes Mellitus. Serum or plasma potassium me asurement (moles/volume)Ordered By: Rosa Romo on 03-22-2022 Potassium [Moles/Vol] 4.4 mmol/L 3.5-5.1 [facility] Serum or plasma sodium measu rement (moles/volume)Ordered By: Rosa Romo on 03-22-2022 Sodium [Moles/Vol] 137 mmol/L 136-146 [facility] Serum or plasma total biliru bin measurement (mass/volume)Ordered By: Rosa Romo on 03-22-2022 Bilirubin [Mass/Vol] 1.8 mg/dL 0.3-1.2 [facility] Comment on above: Samples from patient s who have taken Naproxen have shown spurious elevation in Total Bilirubin levels. A metabolite of Naproxen, O-desmethylnaproxen, has been shown to interfere with the Pop-Adeel method for measuring Total Bilirubin. Serum or plasma total carbon dioxide measurement (moles/volume)Ordered By: Rosa Romo on 03-22-2022 CO2 [Moles/Vol] 29.8 mmol/L 22.0-30.0 [facility] Serum or plasma urea nitroge n measurement (mass/volume)Ordered By: Rosa Romo on 03-22-2022 Urea nitrogen [Mass/Vol] 12 mg/dL 9- [facility] Basophils Auto (Bld) [#/Vol] Ordered By: Rosa Romo on 12-20-2021 Basophils (Bld) [#/Vol] 0.0 10*3/uL 0.0-0.2 [facility] Basophils/100 WBC Auto (Bld) Ordered By: Rosa Romo on 12-20-2021 Basophils/100 WBC (Bld) 0.7 % . [facility] Blood hemoglobin measurement (mass/volume)Ordered By: Rosa Romo on 12-20-2021 Hemoglobin (Bld) [Mass/Vol] 13.6 g/dL 11.8-15.4 [facility] Blood leukocytes automated c ount (number/volume)Ordered By: Rosa Romo on 12-20-2021 WBC (Bld) [#/Vol] 6.3 10*3/uL 4.5-11.0 [facility] Body fluid albumin measureme nt (mass/volume)Ordered By: Rosa Romo on 12-20-2021 Albumin (Body fld) [Mass/Vol] 4.7 g/dL 3.2-5.[address] [facility] [address] biopsyOrdered By: Rosa Galindo se on 12-20-2021 Transferrin [Mass/Vol] 258 mg/dL 180-380 [facility] Cholesterol [Mass/volume] in Serum or PlasmaOrdered By: Zeus Lamas on 12-20-2021 Cholesterol [Mass/Vol] 175 mg/dL 140-200 [facility] Comment on above: Chol less than 200 m g/dl low risk Chol 201-239 mg/dl borderline risk Chol 240 mg/dl and greater high risk Cholesterol in LDL Calc [Mas s/Vol]Ordered By: Zeus Lamas on 12-20-2021 Cholesterol in LDL [Mass/Vol] 119 mg/dL 0-100 [facility] Comment on above: LDL ATP III CLASSIFI CATION LDL less than 100 mg/dL Optimal LDL 100-129 mg/dL Near or above optimal LDL 130-159 mg/dL Borderline high LDL 160-189 mg/dL High LDL greater than 189 mg/dL Very high Cholesterol in VLDL Calc [Ma ss/Vol]Ordered By: Zeus Lamas on 12-20-2021 Cholesterol in VLDL [Mass/Vol] 11 mg/dL [facility] Creatinine and Glomerular fi ltration rate.predicted panel (S/P/Bld)Ordered By: Rosa Romo on 12-20-2021 Creatinine [Mass/Vol] 0.78 mg/dL 0.44-1.03 [facility] Eosinophils Auto (Bld) [#/Vo l]Ordered By: Rosa Romo on 12-20-2021 Eosinophils (Bld) [#/Vol] 0.2 10*3/uL 0.0-0.45 [facility] Eosinophils/100 WBC Auto (Bl d)Ordered By: Rosa Romo on 12-20-2021 Eosinophils/100 WBC (Bld) 2.9 % . [facility] Erythrocyte distribution wid th Auto (RBC) [Ratio]Ordered By: Rosa Romo on 12-20-2021 Erythrocyte distribution width (RBC) [Ratio] 15.6 % 11.9-15.3 [facility] Estimated glomerular filtrat ion rate (GFR) non- AmericanOrdered By: Rosa Romo on 12-20-2021 GFR/1.73 sq M.predicted among non-blacks MDRD (S/P/Bld) [Vol rate/Area] > 60 mL/Min [facility] Ferritin [Mass/volume] in Se rum or PlasmaOrdered By: Rosa Romo on 12-20-2021 Ferritin [Mass/Vol] 278.9 ng/mL 11-306.8 [facility] Globulin Calc (S) [Mass/Vol] Ordered By: Rosa Romo on 12-20-2021 Globulin (S) [Mass/Vol] 2.2 g/dL [facility] Hematocrit Auto (Bld) [Volum e fraction]Ordered By: Rosa Romo on 12-20-2021 Hematocrit (Bld) [Volume fraction] 41.2 % 34.0-46.4 [facility] Iron [Mass/volume] in Serum or PlasmaOrdered By: Rosa Romo on 12-20-2021 Iron [Mass/Vol] 90 ug/dL 40-150 [facility] Iron binding capacity [Mass/ volume] in Serum or PlasmaOrdered By: Rosa Romo on 12-20-2021 Iron binding capacity [Mass/Vol] 361 ug/dL 255-450 [facility] Iron saturation [Mass Fracti on] in Serum or PlasmaOrdered By: Rosa Romo on 12-20-2021 Iron saturation [Mass fraction] 24.0 % 20-50 [facility] Laboratory - Hematology and Cell countsOrdered By: Rosa Romo on 12-20-2021 Nucleated RBC/100 WBC (Bld) [Ratio] 0.0 % 0-0.5 [facility] Lymphocytes Auto (Bld) [#/Vo l]Ordered By: Rosa Romo on 12-20-2021 Lymphocytes (Bld) [#/Vol] 1.7 10*3/uL 1.00-4.8 [facility] Lymphocytes/100 WBC Auto (Bl d)Ordered By: Rosa Romo on 12-20-2021 Lymphocytes/100 WBC (Bld) 26.9 % . [facility] MCH Auto (RBC) [Entitic mass ]Ordered By: Rosa Romo on 12-20-2021 MCH (RBC) [Entitic mass] 29.8 pg 24.7-34.3 [facility] MCHC Auto (RBC) [Mass/Vol]Or dered By: Rosa Romo on 12-20-2021 MCHC (RBC) [Mass/Vol] 33.1 g/dL 32.0-35.0 [facility] MCV Auto (RBC) [Entitic vol] Ordered By: Rosa Romo on 12-20-2021 MCV (RBC) [Entitic vol] 90.0 fL 80-100 [facility] Monocytes Auto (Bld) [#/Vol] Ordered By: Rosa Romo on 12-20-2021 Monocytes (Bld) [#/Vol] 0.4 10*3/uL 0.0-0.8 [facility] Monocytes/100 WBC Auto (Bld) Ordered By: Rosa Romo on 12-20-2021 Monocytes/100 WBC (Bld) 6.3 % . [facility] Neutrophils Auto (Bld) [#/Vo l]Ordered By: Rosa Romo on 12-20-2021 Neutrophils (Bld) [#/Vol] 4.0 10*3/uL 1.8-7.7 [facility] Neutrophils/100 WBC Auto (Bl d)Ordered By: Rosa Romo on 12-20-2021 Neutrophils/100 WBC (Bld) 63.2 % . [facility] No Panel InformationOrdered By: Rosa Romo on 12-20-2021 Estimated GFR () > 60 mL/Min [facility] Comment on above: GFR estimated refere nce range: According to KDOQI guidelines, <60 ml/min/1.73m2 is sufficient to diagnose a patient with chronic kidney disease. Pharmacy Creatinine Clearance (Chem 76.40 [facility] Platelet mean volume Auto (B ld) [Entitic vol]Ordered By: Rosa Romo on 12-20-2021 Platelet mean volume (Bld) [Entitic vol] 8.5 fL 6.3-10.7 [facility] Platelets Auto (Bld) [#/Vol] Ordered By: Rosa Romo on 12-20-2021 Platelets (Bld) [#/Vol] 527 10*3/uL 150-450 [facility] Protein [Mass/volume] in Ser um or PlasmaOrdered By: Rosa Romo on 12-20-2021 Protein [Mass/Vol] 6.9 g/dL 6.1-7.9 [facility] RBC Auto (Bld) [#/Vol]Ordere d By: Rosa Romo on 12-20-2021 RBC (Bld) [#/Vol] 4.58 10*6/uL 3.60-5.00 [facility] Serum or plasma alanine black otransferase measurement without P-5'-P (enzymatic activiOrdered By: Rosa Romo on 12-20-2021 ALT No additional P-5'-P [Catalytic activity/Vol] 22 U/L 10-60 [facility] Serum or plasma albumin/glob ulin mass ratioOrdered By: Rosa Romo on 12-20-2021 Albumin/Globulin [Mass ratio] 2.1 {ratio} [facility] Serum or plasma alkaline laurie sphatase measurement (enzymatic activity/volume)Ordered By: Rosa Romo on 12-20-2021 ALP [Catalytic activity/Vol] 52 U/L 32-92 [facility] Serum or plasma aspartate am inotransferase measurement (enzymatic activity/volume)Ordered By: Rosa Romo on 12-20-2021 AST [Catalytic activity/Vol] 24 U/L 10-42 [facility] Serum or plasma calcium los urement (mass/volume)Ordered By: Rosa Romo on 12-20-2021 Calcium [Mass/Vol] 9.9 mg/dL 8.2-10.2 [facility] Serum or plasma chloride theresa surement (moles/volume)Ordered By: Rosa Romo on 12-20-2021 Chloride [Moles/Vol] 100 mmol/L 95-114 [facility] Serum or plasma glucose los urement (mass/volume)Ordered By: Rosa Romo on 12-20-2021 Glucose [Mass/Vol] 89 mg/dL 70-100 [facility] Comment on above: ADA recommended refe rence range Random Glucose Reference Range is dependent on time and content of last meal. Glucose of more than 200 mg/dL in a nonstressed, ambulatory subject supports the diagnosis of Diabetes Mellitus. Serum or plasma high density lipoprotein (HDL) cholesterol measurementOrdered By: Zeus Lamas on 12-20-2021 Cholesterol in HDL [Mass/Vol] 45 mg/dL 35-85 [facility] Comment on above: HDL CHOL ATP-III CLA SSIFICATION Cardiovascular Risk HDL > or equal to 60 mg/dL LOW HDL < 40 mg/dL HIGH Serum or plasma potassium me asurement (moles/volume)Ordered By: Rosa Romo on 12-20-2021 Potassium [Moles/Vol] 4.0 mmol/L 3.5-5.1 [facility] Serum or plasma sodium measu rement (moles/volume)Ordered By: Rosa Romo on 12-20-2021 Sodium [Moles/Vol] 138 mmol/L 136-146 [facility] Serum or plasma total biliru bin measurement (mass/volume)Ordered By: Rosa Romo on 12-20-2021 Bilirubin [Mass/Vol] 1.4 mg/dL 0.3-1.2 [facility] Comment on above: Samples from patient s who have taken Naproxen have shown spurious elevation in Total Bilirubin levels. A metabolite of Naproxen, O-desmethylnaproxen, has been shown to interfere with the Jenjesenia-Adeel method for measuring Total Bilirubin. Serum or plasma total carbon dioxide measurement (moles/volume)Ordered By: Rosa Romo on 12-20-2021 CO2 [Moles/Vol] 30.2 mmol/L 22.0-30.0 [facility] Serum or plasma total choles terol/high density lipoprotein (HDL) cholesterol mass ratOrdered By: Zeus Lamas on 12-20-2021 Cholesterol.total/Chol esterol in HDL [Mass ratio] 3.9 {ratio} <5.0 [facility] Serum or plasma urea nitroge n measurement (mass/volume)Ordered By: Rosa Romo on 12-20-2021 Urea nitrogen [Mass/Vol] 9 mg/dL 9-23 [facility] Triglyceride [Mass/volume] i n Serum or PlasmaOrdered By: Zeus Lamas on 12-20-2021 Triglyceride [Mass/Vol] 57 mg/dL 35-149 [facility] Comment on above: TRIG ATP III CLASSIF ICATION TRIG less than 150 mg/dL Normal TRIG 150-199 mg/dL Borderline high TRIG 200-500 mg/dL High TRIG greater than 500 mg/dL Very high Standard traceable to the Center for Disease Conrtrol and Prevention (CDC) test method. Complete Blood Counton 05-16 Erythrocyte distribution width (RBC) [Ratio] 14.4 % Normal 11.0-15.0 [facility] Comment on above: Performed By: #### C BC #### [facility] [address], [place] [id number] Hematocrit (Bld) [Volume fraction] 44.4 % Normal 35.0-47.0 [facility] Comment on above: Performed By: #### C BC #### [facility] [address], [place] [id number] Hemoglobin (Bld) [Mass/Vol] 14.1 g/dL Normal 11.6-15.5 [facility] Comment on above: Performed By: #### C BC #### [facility] [address], [place] [id number] MCH (RBC) [Entitic mass] 28.3 pg Normal 27.0-33.0 [facility] Comment on above: Performed By: #### C BC #### [facility] [address], [place] [id number] MCHC (RBC) [Mass/Vol] 31.8 g/dL Low 32.0-36.0 [facility] Comment on above: Performed By: #### C BC #### [facility] [address], [place] [id number] MCV (RBC) [Entitic vol] 89 fL Normal 80-100 [facility] Comment on above: Performed By: #### C BC #### [facility] [address], [place] [id number] Platelet mean volume (Bld) [Entitic vol] 10.40 fL Normal 7.50-12.50 [facility] Comment on above: Performed By: #### C BC #### [facility] [address], [place] [id number] Platelets (Bld) [#/Vol] 555 10*3/uL High 140-400 [facility] Comment on above: Performed By: #### C BC #### [facility] [address], [place] [id number] RBC (Bld) [#/Vol] 4.99 10*6/uL Normal 3.90-5.20 [facility] Comment on above: Performed By: #### C BC #### [facility] [address], [place] [id number] RDW-SD 46.8 fL Normal 37.0-50.0 [facility] Comment on above: Performed By: #### C BC #### [facility] [address], [place] [id number] WBC (Bld) [#/Vol] 6.7 10*3/uL Normal 3.8-11.[address] [facility] Comment on above: Performed By: #### C BC #### [facility] [address], [place] [id number] CNOVon 03-17-2021 CNOV Office Visit (CARDMN ) GLORIA ALLEN ([id number]) 1960 F Date Time Provider Department 03/17/21 [...] to seek emergency care. She wore a [employer] event monitor for 12 days in January [...] bearing down or coughing Occur 3x/week Wore [employer] event monitor for 12 days in 01/2021. [...] No sudden deaths, atrial fibrillation. 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 , 3 children, 1 grandchild. Lives in [place], [place] Habits: Tobacco: none. Alcohol: 1 drink [...] acid (RHIANNON (more content not included)... Normal [facility] 03-17-2021 CNPN Telephone (CARDMN) GLORIA ALLEN ([id number]) 1960 F Date Time Provider Department 03/17/21 NIKITA REYES During your visit today, we recorded the following information about you: Philly Nair 03/17/2021 4:06 PM Signed Outside medical records scanned into News360 drive. Disk uploaded to [employer]: Echocardiogram 01/27/2021. Allergies As of Date: 03/17/2021 (Not on File) Date Reviewed: Never Reviewed Reason for Visit: Received Outside Medical Records [3213] Problem List As Of Date: 03/17/2021 (None) Encounter Status:Closed by PHILLY NAIR on 03/17/21 [facility] 12-31-2020 CNCO Letter Text [facility] CNPNon 12-30-2020 CNPN Telephone (REFPHY) GLORIA ALLEN ([id number]) 1960 F Date Time Provider Department 12/30/20 NO PCP (HISTORICAL) REFPHY During your visit today, we recorded the following information about you: Kyle Crowell 12/30/2020 9:12 AM Signed Patient: Gloria Allen Date of : 1960 Patient phone number: [phone] Referring Provider for the encounter: Zeus Lamas Requesting Provider: Nikita Reyes Reason for requesting visit (RFV/signs and symptoms/diagnosis): palpitations Person calling: via RP fax Return call to: self Medical Records/Insurance Card scanned into [employer]: No Comments: helder Boles 12/31/2020 10:34 AM Signed [employer] RP - Message left for patient to call back to schedule an appointment in EP? for Palpitations, requesting Dr. Reyes per RP referrals. Allergies As of Date: 12/30/2020 (Not on File) Date Reviewed: Never Reviewed Reason for Visit: External Referrals/resources [909] Problem List As Of Date: 12/30/2020 (None) Encounter Status:Closed by KYLE MUNOZ on 12/30/20 [facility] CNPNon 12-23-2020 CNPN Telephone (REFPHY) GLORIA ALLEN ([id number]) 1960 F Date Time Provider Department 12/23/20 NO ONE (HISTORICAL) REFPHY During your visit today, we recorded the following information about you: Alexandria Hernandez 12/23/2020 7:19 AM Signed Patient: Gloria Allen Date of : 1960 Patient phone number: [phone] Referring Provider for the encounter: Dr Zeus Lamas Requesting Provider: Dr Wesley Mallory - Cardiology Reason for requesting visit (RFV/signs and symptoms/diagnosis): Tachycardia, palipatations Person calling: caregiver: ASHLEY Return call to: self Medical Records/Insurance Card scanned into [employer]: Yes Comments: Additional records saved to [employer] Cheyenne Boles 12/23/2020 9:31 AM Signed HVTI [...] Status:Closed by ALEXANDRIA TERRY on 12/23/20 Normal [facility] Albumin [Mass/volume] in Ser um or PlasmaOrdered By: Rosa Romo on 12-16-2020 Albumin [Mass/Vol] 3.9 g/dL 2.9-4.4 [facility] Immunoglobulin light chains. kappa.free [Mass/volume] in SerumOrdered By: Rosa Romo on 12-16-2020 Immunoglobulin light chains.kappa.free (S) [Mass/Vol] 12.3 mg/L 3.3-19.4 [facility] Immunoglobulin light chains. kappa.free/Immunoglobulin light chains.lambda.free [MassOrdered By: Rosa Romo on 12-16-2020 Immunoglobulin light chains.kappa.free/Immu noglobulin light chains.lambda.free (S) [Mass ratio] 0.83 0.26-1.65 [facility] Comment on above: Performed at: [address] [id number] Convict Guard: Osiel Combs PhD, Phone: [phone] Performed at: [address] [id number] Director: Osiel Combs PhD, Phone: [phone] Immunoglobulin light chains. lambda.free [Mass/volume] in Serum or PlasmaOrdered By: Rsoa Romo on 12-16-2020 Immunoglobulin light chains.lambda.free [Mass/Vol] 14.8 mg/L 5.7-26.3 [facility] No Panel InformationOrdered By: Rosa Romo on 12-16-2020 25-Hydroxy Vitamin D Total 51.1 ng/mL 30-100 [facility] Comment on above: VITAMIN D STATUS [...] Electrophoresis M-Sonny Not observed g/dL Not Observed [facility] Protein Electrophoresis Note See comment . [facility] Comment on above: Protein electrophore sis scan will follow via computer, mail, or rider ticket worker delivery. Performed at: [facility] [employer] [id number] Convict Guard: Osiel Combs PhD, Phone: [phone] Protein electrophore sis scan will follow via computer,mail, or rider ticket worker delivery.Performed at: [facility] [employer] [id number] Director: Osiel Combs PhD, Phone: [phone] Protein [Mass/volume] in Ser um or PlasmaOrdered By: Rosa Romo on 12-16-2020 Protein [Mass/Vol] 7.0 g/dL 6.0-8.5 [facility] Serum globulin measurement ( mass/volume)Ordered By: Rosa Romo on 12-16-2020 Globulin (S) [Mass/Vol] 3.1 g/dL 2.2-3.9 [facility] Serum or plasma albumin/glob ulin mass ratioOrdered By: Rosa Romo on 12-16-2020 Albumin/Globulin [Mass ratio] 1.3 {ratio} 0.7-1.7 [facility] Serum or plasma alpha 1 glob ulin measurement by electrophoresis (mass/volume)Ordered By: Rosa Romo on 12-16-2020 Alpha 1 globulin Elph [Mass/Vol] 0.2 g/dL 0.0-0.4 [facility] Serum or plasma alpha 2 glob ulin measurement by electrophoresis (mass/volume)Ordered By: Rosa Romo on 12-16-2020 Alpha 2 globulin Elph [Mass/Vol] 0.7 g/dL 0.4-1.0 [facility] Serum or plasma beta globuli n measurement by electrophoresis (mass/volume)Ordered By: Rosa Romo on 12-16-2020 Beta globulin Elph [Mass/Vol] 1.1 g/dL 0.7-1.3 [facility] Serum or plasma calcitriol m easurement (mass/volume)Ordered By: Rosa Romo on 12-16-2020 1,25-dihydroxyvitamin D3 [Mass/Vol] 60.1 pg/mL 19.9-79.3 [facility] Comment on above: Performed at: [facility] [address] [id number] Convict Guard: Mitchell Glynn MD, Phone: [phone] Performed at: [facility] [address] [id number] Director: Mitchell Glynn MD, Phone: [phone] Serum or plasma gamma globul in measurement by electrophoresis (mass/volume)Ordered By: Rosa Romo on 12-16-2020 Gamma globulin Elph [Mass/Vol] 1.0 g/dL 0.4-1.8 [facility] Serum or plasma intact parat hyroid hormone measurement (mass/volume)Ordered By: Rosa Romo on 12-16-2020 Parathyrin.intact [Mass/Vol] 44.6 pg/mL 12- [facility] TSH DL <= 0.005 mIU/L QnOrde red By: Rosa Romo on 12-16-2020 TSH Qn 1.61 m[IU]/L 0.45-5.33 [facility] Thyroxine (T4) free [Mass/vo lume] in Serum or PlasmaOrdered By: Rosa Romo on 12-16-2020 Free T4 [Mass/Vol] 0.73 ng/dL 0.61-1.12 [facility] Activated partial thrombopla stin time (aPTT) in platelet poor plasma by coagulation aon 06-15-2020 aPTT Coag (PPP) [Time] 28.4 s 22.9-30.2 [facility] - Coagulationon 0 06-15-2020 PT Coag (PPP) [Time] 11.2 s 9.1-12.0 [facility] No Panel Informationon 06-15 Coagulation Factor VIII Activity 116 % 56-140 [facility] Platelet poor plasma interna tional normalized ratio (INR) by coagulation assay (relaton 06-15-2020 INR Coag (PPP) [Relative time] 1.1 {INR} 0.9-1.2 [facility] Comment on above: INR Therapeutic Rang [...] multimers IB Nom (PPP) See comment . [facility] Comment on above: VWF multimer analysi [...] developed and its performance characteristics determined by [employer]. It has not been cleared or approved by the Food and Drug Administration. Performed at: [facility] [address] [employer] [address] [id number] Convict Guard: Sivakumar Mejia MD, Phone: [phone] VWF multimer analysi s demonstrates a normal pattern anddistribution of bands. This is the pattern of multimersthat occurs in normal individuals as well as in those withtype 1 von Willebrand disease (VWD), type 2M and type 2NVWD. Some acquired von Willebrand syndrome cases may yielda normal pattern as well.No additional results available for further interpretation.This test was developed and its performance characteristicsdetermined by [employer]. It has not been cleared or approvedby the Food and Drug Administration.Performed at: [facility] [address] [id number] Director: Sivakumar Mejia MD, Phone: [phone] Von Willebrand factor activi ty measurementon 06-15-2020 vWf ristocetin cofactor act actual/normal Platelet aggregation (PPP) [Relative time] 62 % 50-200 [facility] Comment on above: Performed at: [facility] [address] [id number] Convict Guard: Mitchell Glynn MD, Phone: [phone] Performed at: [facility] [address] [id number] Director: Mitchell Glynn MD, Phone: [phone] Von Willebrand factor antige n measurementon 06-15-2020 vWf Ag Qn (PPP) 86 % 50-200 [facility] Comment on above: This test was develo ped and its performance characteristics determined by [facility]. It has not been cleared or approved by the Food and Drug Administration. This test was develo ped and its performance characteristicsdetermined by [facility]. It has not been cleared orapproved by the Food and Drug Administration. No Panel Informationon 06-04 BCR/abl See comment [facility] Comment on above: See report. Scanned copy available in EMR. Calreticulin Mutation See comment [facility] Comment on above: See report. Scanned copy available in EMR.See report. Scanned copy available in EMR. --- 06/11/20799 --- Calr previously reported as: See report. Scanned copy available in EMR. See report. Scanned copy available in EMR.See report. Scanned copy available in EMR. --- 06/11/20799 ---Calr previously reported as: See report. Scanned copy available in EMR. JAK2 V617F See comment [facility] Comment on above: See report. Scanned [...] in EMR. MPL Mutation Analysis See comment [facility] Comment on above: See report. Scanned copy available in EMR. C reactive protein [Mass/vol ume] in Serum or Plasmaon 05-31-2020 CRP [Mass/Vol] < 0.5 mg/dL 0.0-1.0 [facility] - Hematology and Cell countson 05-31-2020 WBC (Bld) [#/Vol] 8.9 10*3/uL 4.5-11.0 [facility] Serum homogeneous pattern an tinuclear antibody (STEPHANIE) titeron 05-31-2020 Homogenous nuclear Ab pattern (S) [Titer] N/A [facility] Serum nuclear antibody titer on 05-31-2020 Nuclear Ab (S) [Titer] Negative . [facility] Comment on above: Negative <1:80 Borderline 1:80 Positive >1:80 Performed at: [employer] [address] [place], [place] [id number] Convict Guard: Osiel Combs PhD, Phone: [phone] Negative <1:80 Borde rline 1:80 Positive >1:80Performed at: [employer] [address] [id number] Director: Osiel Combs PhD, Phone: [phone] Serum or plasma rheumatoid f actor measurement (units/volume)on 05-31-2020 Rheumatoid factor Qn [IU]/mL 0.0-13.9 [facility] Comment on above: Performed at: [facility] [place] [id number] Convict Guard: Osiel Combs PhD, Phone: [phone] Performed at: [employer] [address] [id number] Director: Osiel Combs PhD, Phone: [phone] OVER READ - NCon 12-20-2017 OVER READ [...] extra arterial structures are otherwise unremarkable. Normal [facility] Healthcare Vital Signs Date Time Vital Sign Value Performing Clinician Faci lity 03-21-2023 11:110400 Body temperature 97.8 [degF] DO Zeus Matik Work Phone: [facility] 03-21-2023 11:11040 Body weight 74.38 kg DO Zeus Matik Work Phone: [facility] 03-21-2023 11:11-0400 Diastolic blood pressure 77 mm[Hg] DO Zeus Cristinachak Work Phone: [facility] 03-21-2023 11:11-0400 Heart rate 64 /min DO Zeus Cristinachak Work Phone: [facility] 03-21-2023 11:11-0400 Respiratory rate 16 /min DO Zeus Cristinachak Work Phone: [facility] 03-21-2023 11:11-0400 SaO2% (BldA) [Mass fraction] 98 % DO Zeus Cristinachak Work Phone: [facility] 03-21-2023 11:11-0400 Systolic blood pressure 132 mm[Hg] DO Zeus Vaschak Work Phone: [facility] 03-24-2022 11:17-0400 Body temperature 97.8 [degF] DO Zeus Cristinachak Work Phone: [facility] 03-24-2022 11:17-0400 Body weight 70.76 kg DO Zeus Cristinachak Work Phone: [facility] 03-24-2022 11:17-0400 Diastolic blood pressure 81 mm[Hg] DO Zeus Vaschak Work Phone: [facility] 03-24-2022 11:17-0400 Heart rate 58 /min DO Zeus Vaschak Work Phone: [facility] 03-24-2022 11:17-0400 Respiratory rate 16 /min DO Zeus Vaschak Work Phone: [facility] 03-24-2022 11:17-0400 SaO2% (BldA) [Mass fraction] 100 % DO Zeus Vaschak Work Phone: [facility] 03-24-2022 11:17-0400 Systolic blood pressure 133 mm[Hg] DO Zeus Vaschak Work Phone: [facility] 12-23-2021 14:43-0400 Body temperature 97.8 [degF] DO Zeus Vaschak Work Phone: [facility] 12-23-2021 14:43-0400 Body weight 69.85 kg DO Zeus Vaschak Work Phone: [facility] 12-23-2021 14:43-0400 Diastolic blood pressure 75 mm[Hg] DO Zeus Vaschak Work Phone: [facility] 12-23-2021 14:43-0400 Heart rate 62 /min DO Zeus Vaschak Work Phone: [facility] 12-23-2021 14:43-0400 Respiratory rate 16 /min DO Zeus Vaschak Work Phone: [facility] 12-23-2021 14:43-0400 SaO2% (BldA) [Mass fraction] 99 % DO Zeus Vaschak Work Phone: [facility] 12-23-2021 14:43-0400 Systolic blood pressure 126 mm[Hg] DO Zeus Vaschak Work Phone: [facility] 05-31-2020 13:09-0500 Body height 172.72 cm DO Zeus Lamas Work Phone: [facility] Encounters Encounter Date Encounter Type Care Provider Facility Start: 09-12-2023 ambulatory Rosa Demetrius Facility:[facility] Start: 09-11-2023 End: 09-11-2023 ambulatory Mckenzie Perkins Facility:[facility] Start: 09-11-2023 End: 09-11-2023 ambulatory DO Zeus Lamas Work Phone: [facility] Work Phone: Start: 09-11-2023 End: 09-11-2023 Patient encounter procedure DO Zeus Thornek Work Phone: [facility] Work Phone: Start: 06-05-2023 End: 06-05-2023 ambulatory MCKENZIE PERKINS Not Available Start: 03-21-2023 End: 03-21-2023 ambulatory DO Zeus Lamas Work Phone: [facility] Work Phone: Start: 03-21-2023 End: 03-21-2023 Registered Recurring DO Zeus Lamas Work Phone: [facility] Work Phone: Start: 03-19-2023 End: 03-19-2023 ambulatory Zeus Lamas Facility:[facility] Start: 03-19-2023 Encounter for genera l adult medical examination without abnormal findings Zeus Lamas [facility] Start: 03-19-2023 Registered Recurring DO Zeus Matik Work Phone: [facility] Work Phone: Start: 03-19-2023 End: 03-19-2023 ambulatory DO Zeus Matik Work Phone: [facility] Work Phone: Start: 03-19-2023 End: 03-19-2023 Patient encounter procedure DO Zeus Vaschak Work Phone: [facility] [place] Work Phone: Start: 09-08-2022 End: 09-08-2022 ambulatory DO Zeus Lamas Work Phone: [facility] Work Phone: Start: 09-08-2022 End: 09-08-2022 Patient encounter procedure DO Zues Lamas Work Phone: [facility] Work Phone: Start: 08-31-2022 End: 08-31-2022 ambulatory DO Zeus Lamas Work Phone: [facility] Work Phone: Start: 08-31-2022 End: 08-31-2022 Patient encounter procedure DO Zeus Lamas Work Phone: [facility] Work Phone: Start: 03-24-2022 End: 03-24-2022 ambulatory DO Zeus Lamas Work Phone: [facility] Work Phone: Start: 03-24-2022 End: 03-24-2022 Registered Recurring DO Zeus Lamas Work Phone: [facility] Start: 12-23-2021 End: 12-23-2021 Registered Recurring DO Zeus Lamas Work Phone: [facility] Start: 12-20-2021 End: 12-20-2021 Patient encounter procedure DO Zeus Lamas Work Phone: [facility] [place] Start: 12-20-2017 Patient encounter ZEUS LAMAS Fac [...] Detail Author Start: 12-23-2021 Registered Recurring Thrombocytosis [facility] Start: 09-28-2021 [facility] Start: 09-21-2021 [facility] Start: 08-19-2021 [facility] Comprehensive metabo lic 1999 panel - Serum or Plasma [facility] Work Phone: Comprehensive metabo lic 1999 panel - Serum or Plasma [facility] Comprehensive metabo lic 1999 panel - Serum or Plasma [facility] Payers Date Payer Category Payer Self-pay [id number] 2020 Unknown [id number] 2020 Unknown [id number] 1960 Unknown [id number] [id number] [id number] Unknown TIFFANY TENORIO Unknown [id number] 2.16.8 [id number] Unknown [id number] 2.16.8 [id number] Unknown [id number] 2.16.8 [id number] Social History Date Type Detail Facility Start: 12-23-2021 End: 03-24-2022 Tobacco smoking status NHIS Never smoked tobacco (finding) [facility] Start: 1960 Sex Assigned At Female F [facility] Clinical Notes 05-31-2020 to 03-24-2022 Note Date & Type Note Facility 03-24-2022 Progress note Note Date/Time March 24, 2022 11:23[facility] at [address] [address] Hem/Onc Follow Up Note - OP Signed Patient: Gloria Allen MR#: [id number] : 1960 Acct:[id number] Age/Sex: 61 / F Type: REG RCR [...] iron stores in one month (f/u with LEAN FACILITATOR). If platelets < 450,000 at that time, [...] 03/24/22 @ 16:09 by Rosa Romo MD) [place] teeth removed - Family History Family History: [...] EXTREMITIES: No edema, cyanosis or clubbing. No Mray sign. NEUROLOGICAL: Alert and oriented. Cranial nerves [...] % (Auto) 66.6, Lymph % (Auto) 24.9, Charles % (Auto) 5.2, Eos % (Auto) 2.4, Baso % (Auto) 0.9, Neut # (Auto) 5.3, Lymph # (Auto) 2.0, Charles # (Auto) 0.4, Eos # (Auto) 0.2, [...] 4-6 weeks to review iron studies with LEAN FACILITATOR, 4 month f/u CBC and determine cytoreduction [...] for coordination of care (as documented) and [id number] counseling of patient and/or family. Dictated By: Rosa Romo MD DD/ 21 Signed By: <Electronically signed by MD Rosa Romo> 03/24/22 1615 [facility] Work Phone: 1(627) 233-210207-30-2022 Progress note Author Rosa Romo [facility] December 24, 2021 4:39pm Note Date/Time December 23, 2021 2:49 pm [facility] [place] [address] Hem/Onc Follow Up Note - OP Signed Patient: Gloria Allen MR#: [id number] : 1960 Acct:[id number] Age/Sex: 61 / F Type: REG RCR [...] iron stores in one month (f/u with LEAN FACILITATOR). If platelets < 450,000 at that time, [...] Negative for environmental allergies and food allergies. [facility] - History Attestation statement: The following information was validated with the patient. Source: Old Records Reviewed - Medical History Medical History: Medical History (Last Reviewed 12/24/21 @ 16:34 by Rosa Romo MD) delivery delivered - Surgical History Surgical History: Surgical History (Last Reviewed 12/24/21 @ 16:34 by Rosa Romo MD) [place] teeth removed - Family History Family History: [...] % (Auto) 63.2, Lymph % (Auto) 26.9, Charles % (Auto) 6.3, Eos % (Auto) 2.9, Baso % (Auto) 0.7, Neut # (Auto) 4.0, Lymph # (Auto) 1.7, Charles # (Auto) 0.4, Eos # (Auto) 0.2, [...] 4-6 weeks to review iron studies with LEAN FACILITATOR, 4 month f/u CBC and determine cytoreduction [...] for coordination of care (as documented) and [id number]-[id number] counseling of patient and/or family. Dictated By: Rosa Romo MD DD/ 1448 Signed By: <Electronically signed by MD Rosa Romo> 12/24/21 5329 [facility] Work Phone: 1(646) 989-494404-23-2022 Progress note Author Rosa Romo [facility] September 17, 2021 6:26pm Note Date/Time September 16, 2021 12: 45pm [facility] [place] at [address] [address] Hem/Onc Follow Up Note - OP Signed Patient: Gloria Allen MR#: [id number] : 1960 Acct:[id number] Age/Sex: 61 / F Type: REG RCR [...] iron stores in one month (f/u with LEAN FACILITATOR). If platelets < 450,000 at that time, [...] C-reactive protein less than 0.5 and negative STEHPANIE and rheumatoid factor screen. Testing for JAK2 [...] Negative for environmental allergies and food allergies. [facility] - History Attestation statement: The following information was validated with the patient. Source: Old Records Reviewed - Medical History Medical History: Medical History (Last Reviewed 09/17/21 @ 18:19 by Rosa Romo MD) delivery delivered - Surgical History Surgical History: Surgical History (Last Reviewed 09/17/21 @ 18:19 by Rosa Romo MD) [place] teeth removed - Family History Family History: [...] 4-6 weeks to review iron studies with LEAN FACILITATOR, 4 month f/u CBC and determine cytoreduction [...] for coordination of care (as documented) and slml-fa-[id number] counseling of patient and/or family. Dictated By: Rosa Romo MD DD/ 1245 Signed By: <Electronically signed by MD Rosa Romo> 09/17/21 6254 [facility] Work Phone: 1(924) 673-707703-25-2022 Procedure [facility]03[facility]25[facility] Procedure [facility]12-23-2021 Progress note Author Rosa Romo [facility] May 19, 2021 7:48pm Note Date/Time May 19, 2021 3:41pm [facility] at [address] [address] Hem/Onc Follow Up Note - OP Signed Patient: Gloria Allen MR#: [id number] : 1960 Acct:[id number] Age/Sex: 61 / F Type: REG RCR [...] Negative for environmental allergies and food allergies. [facility] - History Attestation statement: The following information was validated with the patient. Source: Old Records Reviewed - Medical History Medical History: Medical History (Last Reviewed 05/19/21 @ 15:43 by Rosa Romo MD) delivery delivered - Surgical History Surgical History: Surgical History (Last Reviewed 05/19/21 @ 15:43 by Rosa Romo MD) [place] teeth removed - Family History Family History: [...] noted on monitoring. Transcribed By: ELIZABETH 03/17/21 7144 Dictated By: Zeus Lamas DO 03/16/21 8258 Assessment and Plan - TNM Staging Staging: [...] for coordination of care (as documented) and yqjm-wb-dukm counseling of patient and/or family. Dictated By: Rosa Romo MD DD/ 1534 Signed By: <Electronically signed by MD Rosa Romo> 05/19/211947 [facility] Work Phone: 1(616) 276-619710-21-2021 NoteHNO ID: [id number] Author: Nikita Reyes MD Service: ? Author [...] to seek emergency care. She wore a [email or web address] event monitor for 12 days in January [...] bearing down or coughing Occur 3x/week Wore [email or web address] event monitor for 12 days in 01/2021. [...] No sudden deaths, atrial fibrillation. 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 , 3 children, 1 grandchild. Lives in [place], [place] Habits: Tobacco: none. Alcohol: 1 drink [...] mg tablet T (more content not included)... [facility]08-03-2021 Progress note Author Rosa Romo [facility] December 28, 2020 7:12am Note Date/Time December 27, 2020 3:4 6pm [facility] [place] [address] Hem/Onc Follow Up Note - OP Signed Patient: Gloria Allen MR#: [id number] : 1960 Acct:[id number] Age/Sex: 60 / F Type: REG RCR [...] 12/28/20 @ 07:08 by Rosa Romo MD) [place] teeth removed - Family History Family History: [...] for coordination of care (as documented) and qgyv-id-ezxb counseling of patient and/or family. Dictated By: Rosa Romo MD DD/ 1545 Signed By: <Electronically signed by MD Rosa Romo> 12/28/20 0712 [facility] Work Phone: 1(203) 535-582904-20-2021 Progress note Author Rosa Romo [facility] September 14, 2020 7:40pm Note Date/Time September 13, 2020 4:0 3pm [facility] [place] [address] Hem/Onc Follow Up Note - OP Signed Patient: Gloria Allen MR#: [id number] : 1960 Acct:[id number] Age/Sex: 60 / F Type: REG RCR [...] Negative for environmental allergies and food allergies. [facility] - History Attestation statement: The following information was validated with the patient. Source: Old Records Reviewed - Medical History Medical History: Medical History (Last Reviewed 09/14/20 @ 19:34 by Rosa Romo MD) delivery delivered - Surgical History Surgical History: Surgical History (Last Reviewed 09/14/20 @ 19:34 by Rosa Romo MD) [place] teeth removed - Family History Family History: [...] % (Auto) 70.2, Lymph % (Auto) 19.6, Charles % (Auto) 7.3, Eos % (Auto) 2.3, Baso % (Auto) 0.6, Neut # (Auto) 6.0, Lymph # (Auto) 1.7, Charles # (Auto) 0.6, Eos # (Auto) 0.2, [...] for coordination of care (as documented) and vswc-kl-liwx counseling of patient and/or family. Dictated By: Rosa Romo MD DD/ 8209 Signed By: <Electronically signed by MD Rosa Romo> 09/14/201939 [facility] Work Phone: 1(155) 961-693701-18-2021 Progress note Author Rosa Romo [facility] June 14, 2020 4:10pm Note Date/Time June 14, 2020 3 :26pm [facility] at [place] [id number] Hem/Onc Follow Up Note - OP Signed Patient: Gloria Allen MR#: [id number] : 1960 Acct:[id number] Age/Sex: 60 / F Type: REG RCR [...] 06/14/20 @ 15:59 by Rosa Romo MD) [place] teeth removed - Family History Family History: [...] for coordination of care (as documented) and ipir-zp-vkmn counseling of patient and/or family. Dictated By: Rosa Romo MD DD/ 1525 Signed By: <Electronically signed by MD Rosa Romo> 06/14/20 1610 [facility] Work Phone: 1(530) 153-881101-04-2021 Consult note Author Rosa Romo [facility] May 31, 2020 8:56pm Note Date/Time May 31, 2020 1: 29pm [facility] at [place] [id number] Hem/Onc Consult Note - OP Signed Patient: Gloria Allen MR#: [id number] : 1960 Acct:[id number] Age/Sex: 60 / F Type: REG RCR [...] address epigastric pain with you in followup. [facility] - Medical History Medical History: Medical History (Last Reviewed 05/31/20 @ 20:40 by Rosa Romo MD) delivery delivered - Surgical History Surgical History: Surgical History (Last Reviewed 05/31/20 @ 20:40 by Rosa Romo MD) [place] teeth removed - Family History Family History: [...] for coordination of care (as documented) and dviv-co-kjwv counseling of patient and/or family. Dictated By: Rosa Romo MD DD/ 1329 Signed By: <Electronically signed by MD Rosa Romo> 05/31/202055 [facility] Work Phone: Evaluation note* Diagnosis Onset Date Resolution Status Thrombocytosis acute Epigastric pain chronic Essential thrombocytosis chr onic Iron deficiency anemia chron ic [facility] Work Phone: Evaluation noteNo assessment information available [facility] Work Phone: Evaluation note* Diagnosis Onset Date Resolution Status Thrombocytosis acute Epigastric pain chronic Essential thrombocytosis chr onic Iron deficiency anemia resol chelly [facility] Work Phone: Progress note Author Rosa Romo [facility] December 24, 2021 4:39pm Note Date/Time December 23, 2021 2:49 pm [facility] [place] at [address] [address] Hem/Onc Follow Up Note - OP Signed Patient: Gloria Allen MR#: [id number] : 1960 Acct:[id number] Age/Sex: 61 / F Type: REG RCR [...] iron stores in one month (f/u with LEAN FACILITATOR). If platelets < 450,000 at that time, [...] Negative for environmental allergies and food allergies. [facility] - History Attestation statement: The following information was validated with the patient. Source: Old Records Reviewed - Medical History Medical History: Medical History (Last Reviewed 12/24/21 @ 16:34 by Rosa Romo MD) delivery delivered - Surgical History Surgical History: Surgical History (Last Reviewed 12/24/21 @ 16:34 by Rosa Romo MD) [place] teeth removed - Family History Family History: [...] EXTREMITIES: No edema, cyanosis or clubbing. No Mray sign. NEUROLOGICAL: Alert and oriented. Cranial nerves [...] % (Auto) 63.2, Lymph % (Auto) 26.9, Charles % (Auto) 6.3, Eos % (Auto) 2.9, Baso % (Auto) 0.7, Neut # (Auto) 4.0, Lymph # (Auto) 1.7, Charles # (Auto) 0.4, Eos # (Auto) 0.2, [...] 4-6 weeks to review iron studies with LEAN FACILITATOR, 4 month f/u CBC and determine cytoreduction [...] for coordination of care (as documented) and cdrj-os-avgk counseling of patient and/or family. Dictated By: Rosa Romo MD DD/ 1448 Signed By: <Electronically signed by MD Rosa Romo> 12/24/21 3266 [facility] Work Phone: Progress note Author Rosa Romo [facility] March 24, 2022 4:15pm Note Date/Time March 24, 2022 1 1:23am [facility] [place] [address] Hem/Onc Follow Up Note - OP Signed Patient: Gloria Allen MR#: [id number] : 1960 Acct:[id number] Age/Sex: 61 / F Type: REG RCR [...] iron stores in one month (f/u with LEAN FACILITATOR). If platelets < 450,000 at that time, [...] Negative for environmental allergies and food allergies. [facility] - History Attestation statement: The following information was validated with the patient. Source: Old Records Reviewed - Medical History Medical History: Medical History (Last Reviewed 03/24/22 @ 16:09 by Rosa Romo MD) delivery delivered - Surgical History Surgical History: Surgical History (Last Reviewed 03/24/22 @ 16:09 by Rosa Romo MD) [place] teeth removed - Family History Family History: [...] % (Auto) 66.6, Lymph % (Auto) 24.9, Charles % (Auto) 5.2, Eos % (Auto) 2.4, Baso % (Auto) 0.9, Neut # (Auto) 5.3, Lymph # (Auto) 2.0, Charles # (Auto) 0.4, Eos # (Auto) 0.2, [...] 4-6 weeks to review iron studies with LEAN FACILITATOR, 4 month f/u CBC and determine cytoreduction [...] for coordination of care (as documented) and omjf-tc-rtmw counseling of patient and/or family. Dictated By: Rosa Romo MD DD/ 1122 Signed By: <Electronically signed by MD Rosa Romo> 03/24/22 1613 [facility] Work Phone: Summary Purpose Family [...] content) DATE CREATED AUTHOR 12/21/2017 [facility] DATE CREATED AUTHOR AUTHOR'S ORGANIZ ATION 05/16/2021 [facility] DATE CREATED AUTHOR AUTHOR'S ORGANIZ ATION 06/30/2021 [facility] DATE CREATED AUTHOR AUTHOR'S ORGANIZ ATION 06/06/2023 [facility] DATE CREATED AUTHOR AUTHOR'S ORGANIZ ATION 09/14/2023 [facility] Care Teams (unrecognized sec [...] BE BASED ON THE PRIMARY CLINICAL RECORDS. [facility] [employer] [facility]. provides no warranty or guarantee of the accuracy or completeness of information in this document.
--- NOTE | 2023-12-25 11:49 | P.DS_ITS ---
Discharge Plan Discharge Disposition: Home, Self-Care Follow Up Appointments: 12/31/2023@1100 Plan of Treatment: Sclerotherapy Print Language: Swedish Discharge Date/Time: 12/25/23 11:50
== END 2023-12-25 11:50 | disposition home or self-care (01) ==
LOC: VC 11:04
PROVIDERS: PCP Radiology Diagnostic Radiology; Visit Provider Radiology Diagnostic Radiology
DX: I83.813 Varicose veins of bilateral lower extremities with pain (principal)
CPT/HCPCS: 36471

== ENCOUNTER 2023-12-31 11:05 | Outpatient (OUT) | payer OTHER, SELFPAY ==
--- NOTE | 2023-12-31 08:53 | V.VEINS.HP ---
Vital Signs 12/31/23 11:10 Height 5 ft 7 in Weight 162 kg BMI 55.9 BP 120/64 BP Location Left Brachial BP Position Sitting BP Cuff Size Adult BP Source Manual Cuff Respiration 16 Pulse 69 Pulse Source Monitor Pulse Oximetry (%) 100 Oxygen Delivery Method Room Air Comment The patient's blood pressure is elevated. Varicose Veins Patient in this day for sclerotherapy Osmany Morejon MD personally performed the services described in this documentation, as scribed by Donald Corral RN in my presence and it is both accurate and complete. Donald Morejon RN, am scribing for, and in the presence of, Dr. Osmany Warren and in the presence of the patient. thigh: bilateral, knee: bilateral, calf: bilateral, ankle: bilateral and cameron: bilateral aching and cramping 3 2 years Worsened in recent months: Yes standing and sitting bed rest, elevating extremities and compression stockings History of lower extremity trauma: No Superficial thrombophlebitis: No Family history of varicose veins: yes Has patient had previous lower extremity venous surgery: No Patient has previously received the following treatment(s) for lower extremity varicose veins: Reports none Does patient have a history of : yes Does patient intend to have future pregnancies: no Has patient had lower extremity venous scan with relux testing: Yes Support hose used: Yes Problems walking or doing physical activity: Yes How does it affect you: Symptoms have worsened in the past 2 years Do you walk much: Yes Do you stand much: Yes Medication compliance: good Large amounts of Vitamin K: No Review of Systems ROS Narrative Osmany Morejon MD personally performed the services described in this documentation, as scribed by Donald Corral RN in my presence and it is both accurate and complete. Donald Morejon RN, am scribing for, and in the presence of, Dr. Osmany Warren and in the presence of the patient. Status of ROS 10 or more systems reviewed and unremarkable except as noted in history and below [facility] Medical History (Updated 12/11/23 @ 08:04 by Evie Castillo) Phlebitis and thrombophlebitis of superficial vessels of right lower extremity ?I80.01 - Phlebitis and thrombophlebitis of superficial vessels of right lower extremity (ICD-10) Hypercoagulable state ?D68.59 - Other primary thrombophilia (ICD-10) Varicose veins of bilateral lower extremities with pain ?I83.813 - Varicose veins of bilateral lower extremities with pain (ICD-10) Surgical History (Updated 12/04/23 @ 08:17 by Evie Hollis RN) H/O dilation and curettage ?Z98.890 - Other specified postprocedural states (ICD-10) Previous section ?Z98.891 - History of uterine scar from previous surgery (ICD-10) Family History (Updated 12/04/23 @ 08:18 by Evie Hollis, RN) Aunt Varicose veins of bilateral lower extremities with pain Social History (Updated 12/04/23 @ 08:19 by Evie Hollis, RN) Within the past year, how often did you have a drink containing alcohol: monthly or less Smoking status: Never smoker Non-prescribed substance use: denies use Meds Home Medications and Allergies Home Medications ?Medication ?Instructions ?Recorded ?Confirmed ?Type aspirin 81 mg tablet,delayed 81 mg PO DAILY 12/04/23 12/31/23 History release (Adult Aspirin Regimen) cholecalciferol (vitamin D3) 25 25 mcg PO DAILY 12/04/23 12/31/23 History mcg (1,000 unit) capsule Allergies Allergy/AdvReac Type Severity Reaction Status Date / Time No Known Drug Allergies Allergy Verified 09/14/23 15:20 Exam Narrative Exam Narrative: Osmany Morejon MD personally performed the services described in this documentation, as scribed by Donald Corral RN in my presence and it is both accurate and complete. Donald Morejon RN, am scribing for, and in the presence of, Dr. Osmany Warren and in the presence of the patient. Constitutional Documenting provider has reviewed patient's vital signs: yes Common normals: oriented x3 Lymph Lymphatic: no lymphedema noted Cardio Common normals: regular rate Rate: regular rate Peripheral pulses: posterior tibial pulses present and dorsalis pedis pulses present Extremity Common normals: normal capillary refill Neuro Common normals: oriented x3 Assessment and Plan Assessment and Plan (1) Varicose veins of bilateral lower extremities with pain: Plan Patient to return for sclerotherapy 01/03/2024 Osmany Morejon MD personally performed the services described in this documentation, as scribed by Donald Corral RN in my presence and it is both accurate and complete. IDonald RN, am scribing for, and in the presence of, Dr. Osmany Warren and in the presence of the patient. Procedures Procedure Instructions Procedures sclerotherapy: Risks and benefits of the procedure were discussed at length and informed written consent was obtained.? Time-out procedure was performed and the correct patient and procedure were confirmed.? Staff present during time-out: Donald Corral RN and Osmany Warren MD.? Patient prepped and procedure performed in usual sterile fashion. Injections performed by Dr. Warren and Donald Corral RN Sclerosing Agent:?? 4cc 0.5% Polidocanol Site Injected: right leg Number of Injections: 29 Anesthesia: Supercooled air The patient tolerated the procedure well without complication.? Hemostasis was obtained and thigh-high compression stocking was applied by patient.? Instructed patient to wear stocking for at least 96 hours and sleep with it and only remove for showering.? Will wear stocking for 2 weeks.? The patient verbalizes understanding and states they will comply.? Patient was given post-procedure instructions. Patient was discharged in good condition.? Scheduled to undergo additional injection sclerotherapy on01/03/2024 IOsmany MD personally performed the services described in this documentation, as scribed by Donald Corral RN in my presence and it is both accurate and complete. Donald Morejon RN, am scribing for, and in the presence of, Dr. Osmany Warren and in the presence of the patient.
--- NOTE | 2023-12-31 09:03 | W.VEIN ---
Discharge Plan Discharge Disposition: Home, Self-Care Outpatient Diagnostics: VC INJ Sclerosing SOLMULT Vein (Routine) Timeframe: 2 Weeks Facility: [facility] - Location: [facility] Center Ordered By: Osmany Warren Follow Up Appointments: 01/03/2024 Plan of Treatment: sclerotherapy Patient Instructions: Polidocanol (By injection) (Nallely Lockettthehelder) Print Language: Kazakh Discharge Date/Time: 12/31/23 12:17
--- NOTE | 2023-12-31 11:06 | VEIN_ITS ---
The [address] [address] Patient Name: JONA ALLEN MRN: [id number] date: 1960 Sex: F Assigned Patient Location: Current Patient Location: Accession/Order Number: [id number] Exam Date: 12/31/2023 11:07 Report Date: 12/31/2023 13:07 At the request of: HEMANT MCHUGH Procedure: VC INJ Sclerosing SOLMULT Vein EXAMINATION: VC INJ Sclerosing SOLMULT Vein HISTORY: I83.813 Bilateral leg painful varicose veins The risks and benefits of the procedure were explained at length to the patient and informed written consent was obtained. The procedure was performed under sterile technique. The patient's leg was wrapped with Coban and postprocedural verbal and written instructions provided. Donald Corral RN was present and assisted. SCLEROSANT: 2mL 0.5% Polidocanol. VEIN(S) INJECTED: 29 veins in the right leg. VISUALIZATION: Ultrasound was not used to visualize the sclerosant. ANESTHESIA: Supercooled air. COMPLICATIONS: None. Electronically authenticated by: CASANDRA HAWTHORNE Date: 12/31/2023 13:07
[2023-12-31 11:10] VITALS: BP 120/64; PULSE 69; O2SAT 100; BMI 55.9
--- OUTSIDE RECORDS SUMMARY | 2023-12-31 11:22 | XMS_ITS | CCD ---
Author Organization [facility] Care Team Providers Care Occupational Therapy Co Director Name Role Phone ZEUS LAMAS Unavailable Unavailable ZEUS LAMAS Unavailable Unavailable ZEUS LAMAS Unavailable Unavailable DO Zeus Lamas Primary Care Provider DO Zeus Lamas Attending Provider [phone] DO Zeus Lamas Referring Provider [phone] MD Rosa Romo Attending Provider DO Zeus Lamas Primary Care Provider DO Zeus Lamas Referring Provider [phone] MD Rosa Romo Attending Provider DO Zeus Lamas Primary Care Provider DO Mckenzie Perkins Attending Provider [phone] DO Zeus Lamas Primary Care Provider DO Zeus Lamas Attending Provider [phone] DO Zeus Lamas Referring Provider MD Rosa Romo Attending Provider [phone] DO Zeus Lamas Referring Provider [phone] MD Rosa Romo Attending Provider [phone] MCKENZIE PERKINS Attending Unavailable DO Zeus [...] (Bld) [#/Vol] 0.1 10*3/uL Normal 0.0-0.2 [facility] Comment on above: Result Comment: PERF ORMED BY: [place] [address] PATHOLOGIST LIBRARY CLERK MIGUEL LARSEN M.D. Performed By: #### C BC, CMP #### [address] Basophils/100 WBC (Bld) 1.0 % Normal . [facility] Comment on above: Performed By: #### C BC, CMP #### [address] Eosinophils (Bld) [#/Vol] 0.3 10*3/uL Normal 0.0-0.45 [facility] Comment on above: Performed By: #### C BC, CMP #### [place] [address] Eosinophils/100 WBC (Bld) 4.8 % Normal . [facility] Comment on above: Performed By: #### C BC, CMP #### [address] Erythrocyte distribution width (RBC) [Ratio] 16.0 % High 11.9-15.3 [facility] Comment on above: Performed By: #### C BC, CMP #### [address] Hematocrit (Bld) [Volume fraction] 42.6 % Normal 34.0-46.4 [facility] Comment on above: Performed By: #### C BC, CMP #### [address] Hemoglobin (Bld) [Mass/Vol] 13.8 g/dL Normal 11.8-15.4 [facility] Comment on above: Performed By: #### C BC, CMP #### [address] Lymphocytes (Bld) [#/Vol] 2.3 10*3/uL Normal 1.00-4.8 [facility] Comment on above: Performed By: #### C BC, CMP #### [address] Lymphocytes/100 WBC (Bld) 32.7 % Normal . [facility] Comment on above: Performed By: #### C BC, CMP #### [address] MCH (RBC) [Entitic mass] 28.9 pg Normal 24.7-34.3 [facility] Comment on above: Performed By: #### C BC, CMP #### [address] MCV (RBC) [Entitic vol] 89.0 fL Normal 80-100 [facility] Comment on above: Performed By: #### C BC, CMP #### [address] Mean Corpuscular HGB Conc 32.5 g/dL Normal 32.0-35.0 [facility] Comment on above: Performed By: #### C BC, CMP #### [address] Monocytes (Bld) [#/Vol] 0.5 10*3/uL Normal 0.0-0.8 [facility] Comment on above: Performed By: #### C BC, CMP #### [address] Monocytes/100 WBC (Bld) 7.2 % Normal . [facility] Comment on above: Performed By: #### C BC, CMP #### [address] Neutrophils (Bld) [#/Vol] 3.9 10*3/uL Normal 1.8-7.7 [facility] Comment on above: Performed By: #### C BC, CMP #### [address] Neutrophils/100 WBC (Bld) 54.3 % Normal . [facility] Comment on above: Performed By: #### C BC, CMP #### [address] NRBC% 0.0 /100{WBC} Normal 0-0.5 [facility] Comment on above: Performed By: #### C BC, CMP #### [address] Platelet mean volume (Bld) [Entitic vol] 8.2 fL Normal 6.3-10.7 [facility] Comment on above: Performed By: #### C BC, CMP #### [address] Platelets (Bld) [#/Vol] 599 10*3/uL High 150-450 [facility] Comment on above: Performed By: #### C BC, CMP #### [address] RBC (Bld) [#/Vol] 4.78 10*6/uL Normal 3.60-5.00 [facility] Comment on above: Performed By: #### C BC, CMP #### [address] WBC (Bld) [#/Vol] 7.1 10*3/uL Normal 3.8-11.6 [facility] Comment on above: Performed By: #### C BC, CMP #### [address] Comprehensive Metabolic Pane [place]ouglas 09-12-2023 Albumin [Mass/Vol] 4.8 g/dL Normal 3.5-5.7 [facility] Comment on above: Performed By: #### C BC, CMP #### [address] Albumin/Globulin [Mass ratio] 2.2 {ratio} Normal [facility] Comment on above: Performed By: #### C BC, CMP #### [address] ALP [Catalytic activity/Vol] 56 U/L Normal 34-104 [facility] Comment on above: Performed By: #### C BC, CMP #### [address] ALT [Catalytic activity/Vol] 15 U/L Normal 7-52 [facility] Comment on above: Performed By: #### C BC, CMP #### [address] Anion gap [Moles/Vol] 9.3 mmol/L Normal 6.0-15.0 [facility] Comment on above: Performed By: #### C BC, CMP #### [address] AST [Catalytic activity/Vol] 21 U/L Normal 13-39 [facility] Comment on above: Performed By: #### C BC, CMP #### [address] Bilirubin [Mass/Vol] 1.2 mg/dL High 0.3-1.0 [facility] Comment on above: Performed By: #### C BC, CMP #### [address] Calcium [Mass/Vol] 10.3 mg/dL Normal 8.6-10.3 [facility] Comment on above: Performed By: #### C BC, CMP #### [address] Chloride [Moles/Vol] 103 mmol/L Normal 98-107 [facility] Comment on above: Performed By: #### C BC, CMP #### [address] CO2 [Moles/Vol] 32.3 mmol/L High 21.0-31.0 [facility] Comment on above: Performed By: #### C BC, CMP #### [address] Creatinine [Mass/Vol] 0.82 mg/dL Normal 0.60-1.20 [facility] Comment on above: Performed By: #### C BC, CMP #### [address] Creatinine Clr Calc Pharmacy 70.84 Normal [facility] Comment on above: Result Comment: PERF ORMED BY: [place] [address] PATHOLOGIST LIBRARY CLERK MIGUEL LARSEN M.D. Performed By: #### C BC, CMP #### [address] GFR/1.73 sq M.predicted MDRD (S/P/Bld) [Vol rate/Area] mL/min/{1.73_m2} Normal [facility] Comment on above: Performed By: #### C BC, CMP #### [address] Globulin (S) [Mass/Vol] 2.2 g/dL Normal [facility] Comment on above: Performed By: #### C BC, CMP #### [address] [place] [address] [place] Glucose [Mass/Vol] 77 mg/dL Normal 70-100 [facility] Comment on above: Result Comment: [facility] Glucose Reference Range is dependent on time and content of last meal. Glucose of more than 200 mg/dL in a nonstressed, ambulatory subject supports the diagnosis of Diabetes Mellitus. ADA recommended reference range Performed By: #### C BC, CMP #### [facility] [address] Potassium [Moles/Vol] 4.6 mmol/L Normal 3.5-5.1 [facility] Comment on above: Performed By: #### C BC, CMP #### [facility] [address] Protein [Mass/Vol] 7.0 g/dL Normal 6.4-8.9 [facility] Comment on above: Performed By: #### C BC, CMP #### [address] Sodium [Moles/Vol] 140 mmol/L Normal 136-145 [facility] Comment on above: Performed By: #### C BC, CMP #### [address] Urea nitrogen [Mass/Vol] 18 mg/dL Normal 7-25 [facility] Comment on above: Performed By: #### C BC, CMP #### [address] MM screening mammo BI w/CADo n 09-11-2023 MM screening mammo BI w/CAD [facility] Main [place] [address] [place] [address] Mammography Report Signed Patient: Gloria Allen MR#: [id number] [birth year] : 1960 Acct:[id number] Age/Sex: 63 / F ADM Date: 09/11/23 Loc: [place] Room: Type: [facility] Attending Dr: Mckenzie Perkins DO Copies to: [...] [id number] Signed By: 09/11/23 1330 Normal [facility] Alanine aminotransferase [En zymatic activity/volume] in Serum or PlasmaOrdered By: Rosa Romo on 03-19-2023 ALT [Catalytic activity/Vol] 13 U/L 7-52 [facility] Albumin [Mass/volume] in Ser um or Plasma by Bromocresol green (BCG) dye binding methoOrdered By: Rosa Romo on 03-19-2023 Albumin BCG dye [Mass/Vol] 4.5 g/dL 3.5-5.7 [facility] Alkaline phosphatase [Enzyma tic activity/volume] in Serum or PlasmaOrdered By: Rosa Romo on 03-19-2023 ALP [Catalytic activity/Vol] 56 U/L 34-104 [facility] Aspartate aminotransferase [ Enzymatic activity/volume] in Serum or PlasmaOrdered By: Rosa Romo on 03-19-2023 AST [Catalytic activity/Vol] 19 U/L 13-39 [facility] Basophils Auto (Bld) [#/Vol] Ordered By: Rosa Romo on 03-19-2023 Basophils (Bld) [#/Vol] 0.1 10*3/uL 0.0-0.2 [facility] Basophils/100 WBC Auto (Bld) Ordered By: Rosa Romo on 03-19-2023 Basophils/100 WBC (Bld) 0.9 % . [facility] Bilirubin.total [Mass/volume ] in Serum or PlasmaOrdered By: Rosa Romo on 03-19-2023 Bilirubin [Mass/Vol] 1.4 mg/dL 0.3-1.[address] [facility] Comment on above: Samples from patient s who have taken Naproxen have shown spurious elevation in Total Bilirubin levels. A metabolite of Naproxen, O-desmethylnaproxen, has been shown to interfere with the Pop-Adeel method for measuring Total Bilirubin. Calcium [Mass/volume] in Ser um or PlasmaOrdered By: Rosa Romo on 03-19-2023 Calcium [Mass/Vol] 9.7 mg/dL 8.6-10.3 [facility] Carbon dioxide, total [Moles /volume] in Serum or PlasmaOrdered By: Rosa Romo on 03-19-2023 CO2 [Moles/Vol] 31.9 mmol/L 21.0-31.0 [facility] Chloride [Moles/volume] in S anne or PlasmaOrdered By: Rosa Romo on 03-19-2023 Chloride [Moles/Vol] 104 mmol/L 98-[address] [facility] Cholesterol [Mass/volume] in Serum or PlasmaOrdered By: Zeus Lamas on 03-19-2023 Cholesterol [Mass/Vol] 179 mg/dL 140-200 [facility] Comment on above: Chol less than 200 m g/dl low riskChol 201-239 mg/dl borderline riskChol 240 mg/dl and greater high risk Cholesterol in LDL Calc [Mas s/Vol]Ordered By: Zeus Lamas on 03-19-2023 Cholesterol in LDL [Mass/Vol] 123 mg/dL 0-100 [facility] Comment on above: LDL ATP III CLASSIFI CATIONLDL less than 100 mg/dL OptimalLDL 100-129 mg/dL Near or above optimalLDL 130-159 mg/dL Borderline highLDL 160-189 mg/dL HighLDL greater than 189 mg/dL Very high Cholesterol in VLDL Calc [Ma ss/Vol]Ordered By: Zeus Lamas on 03-19-2023 Cholesterol in VLDL [Mass/Vol] 12 mg/dL [facility] Comprehensive Metabolic Pane douglas 03-19-2023 Albumin [Mass/Vol] 4.5 g/dL Normal 3.5-5.7 [facility] Comment on above: Order Comment: PT FA STED 12 HOURS Performed By: #### S CAN CBC, CMP #### [facility] [address] Albumin/Globulin [Mass ratio] 2.0 {ratio} Normal [facility] Comment on above: Order Comment: PT FA STED 12 HOURS Performed By: #### S CAN CBC, CMP #### [address] ALP [Catalytic activity/Vol] 56 U/L Normal 34-104 [facility] Comment on above: Order Comment: PT FA STED 12 HOURS Performed By: #### S CAN CBC, CMP #### [address] ALT [Catalytic activity/Vol] 13 U/L Normal 7-52 [facility] Comment on above: Order Comment: PT FA STED 12 HOURS Performed By: #### S CAN CBC, CMP #### [facility] [address] [place] [address] Anion gap [Moles/Vol] 9.3 mmol/L Normal 6.0-15.0 [facility] Comment on above: Order Comment: PT FA STED 12 HOURS Performed By: #### S CAN CBC, CMP #### [address] AST [Catalytic activity/Vol] 19 U/L Normal 13-39 [facility] Comment on above: Order Comment: PT FA STED 12 HOURS Performed By: #### S CAN CBC, CMP #### [address] Bilirubin [Mass/Vol] 1.4 mg/dL High 0.3-1.0 [facility] Comment on above: Order Comment: PT FA STED 12 HOURS Result Comment: Samp les from patients who have taken Naproxen have shown spurious elevation in Total Bilirubin levels. A metabolite of Naproxen, O-desmethylnaproxen, has been shown to interfere with the Jendrassik-Grof method for measuring Total Bilirubin. Performed By: #### S CAN CBC, CMP #### [address] Calcium [Mass/Vol] 9.7 mg/dL Normal 8.6-10.3 [facility] Comment on above: Order Comment: PT FA STED 12 HOURS Performed By: #### S CAN CBC, CMP #### [address] Chloride [Moles/Vol] 104 mmol/L Normal 98-107 [facility] Comment on above: Order Comment: PT FA STED 12 HOURS Performed By: #### S CAN CBC, CMP #### [place] [address] [place] CO2 [Moles/Vol] 31.9 mmol/L High 21.0-31.0 [facility] Comment on above: Order Comment: PT FA STED 12 HOURS Performed By: #### S CAN CBC, CMP #### [place] [address] [place] Creatinine [Mass/Vol] 0.77 mg/dL Normal 0.60-1.20 [facility] Comment on above: Order Comment: PT FA STED 12 HOURS Performed By: #### S CAN CBC, CMP #### [place] [address] [place] Creatinine Clr Calc Pharmacy 76.42 Normal [facility] Comment on above: Order Comment: PT FA STED 12 HOURS Result Comment: PERF ORMED BY: [place] [address] PATHOLOGIST LIBRARY CLERK MIGUEL LARSEN M.D. Performed By: #### S CAN CBC, CMP #### [facility] [address] [place] [address] [place] GFR/1.73 sq M.predicted MDRD (S/P/Bld) [Vol rate/Area] mL/min/{1.73_m2} Normal [facility] Comment on above: Order Comment: PT FA STED 12 HOURS Performed By: #### S CAN CBC, CMP #### [facility] [address] [place] [address] [place] Globulin (S) [Mass/Vol] 2.2 g/dL Normal [facility] Comment on above: Order Comment: PT FA STED 12 HOURS Performed By: #### S CAN CBC, CMP #### [address] Glucose [Mass/Vol] 79 mg/dL Normal 70-100 [facility] Comment on above: Order Comment: PT FA STED 12 HOURS Result Comment: [place] Glucose Reference Range is dependent on time and content of last meal. Glucose of more than 200 mg/dL in a nonstressed, ambulatory subject supports the diagnosis of Diabetes Mellitus. ADA recommended reference range Performed By: #### S CAN CBC, CMP #### [place] [address] [place] Potassium [Moles/Vol] 4.2 mmol/L Normal 3.5-5.1 [facility] Comment on above: Order Comment: PT FA STED 12 HOURS Performed By: #### S CAN CBC, CMP #### [place] [address] [place] Protein [Mass/Vol] 6.7 g/dL Normal 6.4-8.9 [facility] Comment on above: Order Comment: PT FA STED 12 HOURS Performed By: #### S CAN CBC, CMP #### [place] [address] [place] Sodium [Moles/Vol] 141 mmol/L Normal 136-145 [facility] Comment on above: Order Comment: PT FA STED 12 HOURS Performed By: #### S CAN CBC, CMP #### [place] [address] [place] Urea nitrogen [Mass/Vol] 13 mg/dL Normal 7-25 [facility] Comment on above: Order Comment: PT FA STED 12 HOURS Performed By: #### S CAN CBC, CMP #### [facility] [address] Creatinine [Mass/volume] in Serum or PlasmaOrdered By: Rosa Romo on 03-19-2023 Creatinine [Mass/Vol] 0.77 mg/dL 0.60-1.20 [facility] Eosinophils Auto (Bld) [#/Vo l]Ordered By: Rosa Romo on 03-19-2023 Eosinophils (Bld) [#/Vol] 0.3 10*3/uL 0.0-0.45 [facility] Eosinophils/100 WBC Auto (Bl d)Ordered By: Rosa Romo on 03-19-2023 Eosinophils/100 WBC (Bld) 4.9 % . [facility] Erythrocyte distribution wid th Auto (RBC) [Ratio]Ordered By: Rosa Romo on 03-19-2023 Erythrocyte distribution width (RBC) [Ratio] 15.4 % 11.9-15.3 [facility] Globulin Calc (S) [Mass/Vol] Ordered By: Rosa Romo on 03-19-2023 Globulin (S) [Mass/Vol] 2.2 g/dL [facility] Glucose [Mass/volume] in Ser um or PlasmaOrdered By: Rosa Romo on 03-19-2023 Glucose [Mass/Vol] 79 mg/dL 70-100 [facility] Comment on above: ADA recommended refe rence rangeRandom Glucose Reference Range is dependent on time and content of last meal. Glucose of more than 200 mg/dL in a nonstressed, ambulatory subject supports the diagnosis of Diabetes Mellitus. Hematocrit Auto (Bld) [Volum e fraction]Ordered By: Rosa Romo on 03-19-2023 Hematocrit (Bld) [Volume fraction] 41.5 % 34.0-46.4 [facility] Hemoglobin [Mass/volume] in BloodOrdered By: Rosa Romo on 03-19-2023 Hemoglobin (Bld) [Mass/Vol] 13.7 g/dL 11.8-15.4 [facility] Leukocytes [#/volume] correc prema for nucleated erythrocytes in Blood by Automated counOrdered By: Rosa Romo on 03-19-2023 WBC corrected for nucl RBC Auto (Bld) [#/Vol] 6.5 10*3/uL 3.8-11.6 [facility] Lipid Panelon 03-19-2023 Cholesterol [Mass/Vol] 179 mg/dL Normal 140-200 [facility] Comment on above: Order Comment: PT FA STED 12 HOURS Result Comment: Chol less than 200 mg/dl low risk Chol 201-239 mg/dl borderline risk Chol 240 mg/dl and greater high risk Performed By: #### L IPID #### [facility] [address] [place] [id number] [place] Cholesterol in HDL [Mass/Vol] 44 mg/dL Normal 23-92 [facility] Comment on above: Order Comment: PT FA STED 12 HOURS Result Comment: HDL CHOL ATP-III CLASSIFICATION Cardiovascular Risk HDL > or equal to 60 mg/dL LOW HDL < 40 mg/dL HIGH Performed By: #### L IPID #### [facility] [address] [place] [address] [place] Cholesterol.total/Chol esterol in HDL [Mass ratio] 4.1 {ratio} Normal <5.0 [facility] Comment on above: Order Comment: PT FA STED 12 HOURS Result Comment: PERF ORMED BY: [place] [address] PATHOLOGIST LIBRARY CLERK MIGUEL LARSEN M.D. Performed By: #### L IPID #### [facility] [address] [place] [id number] [place] LDL Cholesterol,Calculated 123 mg/dL High 0-100 [facility] Comment on above: Order Comment: PT FA STED 12 HOURS Result Comment: LDL ATP III CLASSIFICATION LDL less than 100 mg/dL Optimal LDL 100-129 mg/dL Near or above optimal LDL 130-159 mg/dL Borderline high LDL 160-189 mg/dL High LDL greater than 189 mg/dL Very high Performed By: #### L IPID #### [facility] [address] [place] [address] [place] Triglyceride w/Reflex 62 mg/dL Normal 0-149 [facility] Comment on above: Order Comment: PT FA STED 12 HOURS Result Comment: TRIG ATP III CLASSIFICATION TRIG less than 150 mg/dL Normal TRIG 150-199 mg/dL Borderline high TRIG 200-500 mg/dL High TRIG greater than 500 mg/dL Very high Standard traceable to the Center for Disease Conrtrol and Prevention (CDC) test method. Performed By: #### L IPID #### [facility] [address] VLDL CHOLESTEROL 12 mg/dL Normal [facility] Comment on above: Order Comment: PT FA STED 12 HOURS Performed By: #### L IPID #### [facility] [address] Lymphocytes Auto (Bld) [#/Vo l]Ordered By: Rosa Romo on 03-19-2023 Lymphocytes (Bld) [#/Vol] 2.1 10*3/uL 1.00-4.8 [facility] Lymphocytes/100 WBC Auto (Bl d)Ordered By: Rosa Romo on 03-19-2023 Lymphocytes/100 WBC (Bld) 32.8 % . [facility] MCH Auto (RBC) [Entitic mass ]Ordered By: Rosa Romo on 03-19-2023 MCH (RBC) [Entitic mass] 28.8 pg 24.7-34.3 [facility] MCHC Auto (RBC) [Mass/Vol]Or dered By: Rosa Romo on 03-19-2023 MCHC (RBC) [Mass/Vol] 33.1 g/dL 32.0-35.0 [facility] MCV Auto (RBC) [Entitic vol] Ordered By: Rosa Romo on 03-19-2023 MCV (RBC) [Entitic vol] 87.1 fL 80-100 [facility] Monocytes Auto (Bld) [#/Vol] Ordered By: Rosa Romo on 03-19-2023 Monocytes (Bld) [#/Vol] 0.5 10*3/uL 0.0-0.8 [facility] Monocytes/100 WBC Auto (Bld) Ordered By: Rosa Romo on 03-19-2023 Monocytes/100 WBC (Bld) 7.3 % . [facility] Neutrophils Auto (Bld) [#/Vo l]Ordered By: Rosa Romo on 03-19-2023 Neutrophils (Bld) [#/Vol] 3.5 10*3/uL 1.8-7.7 [facility] Neutrophils/100 WBC Auto (Bl d)Ordered By: Rosa Romo on 03-19-2023 Neutrophils/100 WBC (Bld) 54.1 % . [facility] No Panel InformationOrdered By: Rosa Romo on 03-19-2023 Estimated GFR (CKD-EPI) > 60.0 mL/Min [facility] Creatinine Clearance (Chem 76.42 [facility] Nucleated erythrocytes [Pres ence] in Blood by Automated countOrdered By: Rosa Romo on 03-19-2023 Nucleated RBC Auto Ql (Bld) 0.0 /100{WBC} 0-0.5 [facility] Platelet adequacy [Presence] in Blood by Light microscopyOrdered By: Rosa Romo on 03-19-2023 Platelets LM Ql (Bld) Increased Normal [facility] Platelet mean volume Auto (B ld) [Entitic vol]Ordered By: Rosa Romo on 03-19-2023 Platelet mean volume (Bld) [Entitic vol] 8.5 fL 6.3-10.7 [facility] Platelet morphology finding [Identifier] in BloodOrdered By: Rosa Romo on 03-19-2023 Platelet morphology finding Nom (Bld) Normal Normal [facility] Platelets Auto (Bld) [#/Vol] Ordered By: Rosa Romo on 03-19-2023 Platelets (Bld) [#/Vol] 537 10*3/uL 150-450 [facility] Potassium [Moles/volume] in Serum or PlasmaOrdered By: Rosa Romo on 03-19-2023 Potassium [Moles/Vol] 4.2 mmol/L 3.5-5.1 [facility] Protein [Mass/volume] in Ser um or PlasmaOrdered By: Rosa Romo on 03-19-2023 Protein [Mass/Vol] 6.7 g/dL 6.4-8.9 [facility] RBC Auto (Bld) [#/Vol]Ordere d By: Rosa Romo on 03-19-2023 RBC (Bld) [#/Vol] 4.76 10*6/uL 3.60-5.00 [facility] RBC morphologyOrdered By: Rosie Romo on 03-19-2023 RBC morphology finding Nom (Bld) Normal Normal [facility] Scan and CBCon 03-19-2023 Basophils (Bld) [#/Vol] 0.1 10*3/uL Normal 0.0-0.2 [facility] Comment on above: Performed By: #### S CAN CBC, CMP #### [facility] [address] [place] [address] [place] Basophils/100 WBC (Bld) 0.9 % Normal . [facility] Comment on above: Performed By: #### S CAN CBC, CMP #### [facility] [address] [place] [address] [place] Eosinophils (Bld) [#/Vol] 0.3 10*3/uL Normal 0.0-0.45 [facility] Group Comment on above: Performed By: #### S CAN CBC, CMP #### [facility] [address] [id number] [place] Eosinophils/100 WBC (Bld) 4.9 % Normal . [facility] Comment on above: Performed By: #### S CAN CBC, CMP #### [facility] [address] Erythrocyte distribution width (RBC) [Ratio] 15.4 % High 11.9-15.3 [facility] Comment on above: Performed By: #### S CAN CBC, CMP #### [facility] [address] [id number] [place] Hematocrit (Bld) [Volume fraction] 41.5 % Normal 34.0-46.4 [facility] Comment on above: Performed By: #### S CAN CBC, CMP #### [facility] [address] [place] [address] [place] Hemoglobin (Bld) [Mass/Vol] 13.7 g/dL Normal 11.8-15.4 [facility] Comment on above: Performed By: #### S CAN CBC, CMP #### [facility] [address] Lymphocytes (Bld) [#/Vol] 2.1 10*3/uL Normal 1.00-4.8 [facility] Comment on above: Performed By: #### S CAN CBC, CMP #### [address] Lymphocytes/100 WBC (Bld) 32.8 % Normal . [facility] Comment on above: Performed By: #### S CAN CBC, CMP #### [address] MCH (RBC) [Entitic mass] 28.8 pg Normal 24.7-34.3 [facility] Comment on above: Performed By: #### S CAN CBC, CMP #### [address] MCV (RBC) [Entitic vol] 87.1 fL Normal 80-100 [facility] Comment on above: Performed By: #### S CAN CBC, CMP #### [address] Mean Corpuscular HGB Conc 33.1 g/dL Normal 32.0-35.0 [facility] Comment on above: Performed By: #### S CAN CBC, CMP #### [address] Monocytes (Bld) [#/Vol] 0.5 10*3/uL Normal 0.0-0.8 [facility] Comment on above: Performed By: #### S CAN CBC, CMP #### [place] [address] [place] Monocytes/100 WBC (Bld) 7.3 % Normal . [facility] Comment on above: Performed By: #### S CAN CBC, CMP #### [address] Neutrophils (Bld) [#/Vol] 3.5 10*3/uL Normal 1.8-7.7 [facility] Comment on above: Performed By: #### S CAN CBC, CMP #### [address] Neutrophils/100 WBC (Bld) 54.1 % Normal . [facility] Comment on above: Performed By: #### S CAN CBC, CMP #### [address] NRBC% 0.0 /100{WBC} Normal 0-0.5 [facility] Comment on above: Performed By: #### S CAN CBC, CMP #### [address] Platelet Estimate Increased Normal Normal [facility] Comment on above: Performed By: #### S CAN CBC, CMP #### [address] Platelet mean volume (Bld) [Entitic vol] 8.5 fL Normal 6.3-10.7 [facility] Comment on above: Performed By: #### S CAN CBC, CMP #### [address] Platelet Morphology Normal Normal Normal [facility] Comment on above: Result Comment: PERF ORMED BY: [place] [address] PATHOLOGIST LIBRARY CLERK MIGUEL LARSEN M.D. Performed By: #### S CAN CBC, CMP #### [address] Platelets (Bld) [#/Vol] 537 10*3/uL High 150-450 [facility] Comment on above: Performed By: #### S CAN CBC, CMP #### [address] RBC (Bld) [#/Vol] 4.76 10*6/uL Normal 3.60-5.00 [facility] Comment on above: Performed By: #### S CAN CBC, CMP #### [address] RBC morphology finding Nom (Bld) Normal Normal Normal [facility] Comment on above: Performed By: #### S CAN CBC, CMP #### [facility] [address] WBC (Bld) [#/Vol] 6.5 10*3/uL Normal 3.8-11.6 [facility] Comment on above: Performed By: #### S CAN CBC, CMP #### [facility] [address] Serum or plasma albumin/glob ulin mass ratioOrdered By: Rosa Romo on 03-19-2023 Albumin/Globulin [Mass ratio] 2.0 {ratio} [facility] Serum or plasma anion gap de terminationOrdered By: Rosa Romo on 03-19-2023 Anion gap [Moles/Vol] 9.3 mmol/L 6.0-15.0 [facility] Serum or plasma high density lipoprotein (HDL) cholesterol measurementOrdered By: Zeus Lamas on 03-19-2023 Cholesterol in HDL [Mass/Vol] 44 mg/dL [facility] Comment on above: HDL CHOL ATP-III CLA SSIFICATION Cardiovascular RiskHDL > or equal to 60 mg/dL LOWHDL < 40 mg/dL HIGH Serum or plasma total choles terol/high density lipoprotein (HDL) cholesterol mass ratOrdered By: Zeus Lamas on 03-19-2023 Cholesterol.total/Chol esterol in HDL [Mass ratio] 4.1 {ratio} <5.0 [facility] Sodium [Moles/volume] in Ser um or PlasmaOrdered By: Rosa Romo on 03-19-2023 Sodium [Moles/Vol] 141 mmol/L 136-145 [facility] Triglyceride [Mass/volume] i n Serum or PlasmaOrdered By: Zeus Lamas on 03-19-2023 Triglyceride [Mass/Vol] 62 mg/dL 0-149 [facility] Comment on above: TRIG ATP III CLASSIF ICATIONTRIG less than 150 mg/dL NormalTRIG 150-199 mg/dL Borderline highTRIG 200-500 mg/dL High TRIG greater than 500 mg/dL Very highStandard traceable to the Center for Disease Conrtrol and Prevention (CDC) test method. Urea nitrogen [Mass/volume] in Serum or PlasmaOrdered By: Rosa Romo on 03-19-2023 Urea nitrogen [Mass/Vol] 13 mg/dL 7 [facility] WBC Auto (Bld) [#/Vol]Ordere d By: Rosa Romo on 03-19-2023 WBC (Bld) [#/Vol] 6.5 10*3/uL 3.8-11.6 [facility] Complete Blood Count Auto Di ffon 09-22-2022 Basophils (Bld) [#/Vol] 0.1 10*3/uL Normal 0.0-0.2 [facility] Comment on above: Result Comment: PERF ORMED BY: [place] [address] PATHOLOGIST LIBRARY CLERK MIGUEL LARSEN M.D. Performed By: #### C BC #### [address] Basophils/100 WBC (Bld) 0.7 % Normal . [facility] Comment on above: Performed By: #### C BC #### [address] Eosinophils (Bld) [#/Vol] 0.3 10*3/uL Normal 0.0-0.45 [facility] Comment on above: Performed By: #### C BC #### [address] Eosinophils/100 WBC (Bld) 4.4 % Normal . [facility] Comment on above: Performed By: #### C BC #### [address] Erythrocyte distribution width (RBC) [Ratio] 14.7 % Normal 11.9-15.3 [facility] Comment on above: Performed By: #### C BC #### [address] Hematocrit (Bld) [Volume fraction] 42.0 % Normal 34.0-46.4 [facility] Comment on above: Performed By: #### C BC #### [address] Hemoglobin (Bld) [Mass/Vol] 13.7 g/dL Normal 11.8-15.4 [facility] Comment on above: Performed By: #### C BC #### [address] Lymphocytes (Bld) [#/Vol] 1.8 10*3/uL Normal 1.00-4.8 [facility] Comment on above: Performed By: #### C BC #### [address] Lymphocytes/100 WBC (Bld) 22.7 % Normal . [facility] Comment on above: Performed By: #### C BC #### [address] MCH (RBC) [Entitic mass] 28.8 pg Normal 24.7-34.3 [facility] Comment on above: Performed By: #### C BC #### [address] MCV (RBC) [Entitic vol] 88.4 fL Normal 80-100 [facility] Comment on above: Performed By: #### C BC #### [address] Mean Corpuscular HGB Conc 32.6 g/dL Normal 32.0-35.0 [facility] Comment on above: Performed By: #### C BC #### [address] Monocytes (Bld) [#/Vol] 0.5 10*3/uL Normal 0.0-0.8 [facility] Comment on above: Performed By: #### C BC #### [address] Monocytes/100 WBC (Bld) 6.5 % Normal . [facility] Comment on above: Performed By: #### C BC #### [address] Neutrophils (Bld) [#/Vol] 5.1 10*3/uL Normal 1.8-7.7 [facility] Comment on above: Performed By: #### C BC #### [facility] [address] Neutrophils/100 WBC (Bld) 65.7 % Normal . [facility] Comment on above: Performed By: #### C BC #### [facility] [address] NRBC% 0.1 /100{WBC} Normal 0-0.5 [facility] Comment on above: Performed By: #### C BC #### [address] Platelet mean volume (Bld) [Entitic vol] 8.5 fL Normal 6.3-10.7 [facility] Comment on above: Performed By: #### C BC #### [address] Platelets (Bld) [#/Vol] 551 10*3/uL High 150-450 [facility] Comment on above: Performed By: #### C BC #### [address] RBC (Bld) [#/Vol] 4.75 10*6/uL Normal 3.60-5.00 [facility] Comment on above: Performed By: #### C BC #### [address] WBC (Bld) [#/Vol] 7.7 10*3/uL Normal 3.8-11.6 [facility] Comment on above: Performed By: #### C BC #### [place] [address] [place] Basophils Auto (Bld) [#/Vol] Ordered By: Rosa Romo on 03-22-2022 Basophils (Bld) [#/Vol] 0.1 10*3/uL 0.0-0.2 [facility] Basophils/100 WBC Auto (Bld) Ordered By: Rosa Romo on 03-22-2022 Basophils/100 WBC (Bld) 0.9 % . [facility] Body fluid albumin measureme nt (mass/volume)Ordered By: Rosa Romo on 03-22-2022 Albumin (Body fld) [Mass/Vol] 4.3 g/dL 3.2-5.5 [facility] Creatinine and Glomerular fi ltration rate.predicted panel (S/P/Bld)Ordered By: Rosa Romo on 03-22-2022 Creatinine [Mass/Vol] 0.79 mg/dL 0.44-1.03 [facility] Eosinophils Auto (Bld) [#/Vo l]Ordered By: Rosa Romo on 03-22-2022 Eosinophils (Bld) [#/Vol] 0.2 10*3/uL 0.0-0.45 [facility] Eosinophils/100 WBC Auto (Bl d)Ordered By: Rosa Romo on 03-22-2022 Eosinophils/100 WBC (Bld) 2.4 % . [facility] Erythrocyte distribution wid th Auto (RBC) [Ratio]Ordered By: Rosa Romo on 03-22-2022 Erythrocyte distribution width (RBC) [Ratio] 14.7 % 11.9-15.3 [facility] Estimated glomerular filtrat ion rate (GFR) non- AmericanOrdered By: Rosa Romo on 03-22-2022 GFR/1.73 sq M.predicted among non-blacks MDRD (S/P/Bld) [Vol rate/Area] > 60 mL/Min [facility] Globulin Calc (S) [Mass/Vol] Ordered By: Rosa Romo on 03-22-2022 Globulin (S) [Mass/Vol] 2.2 g/dL [facility] Hematocrit Auto (Bld) [Volum e fraction]Ordered By: Rosa Romo on 03-22-2022 Hematocrit (Bld) [Volume fraction] 41.9 % 34.0-46.4 [facility] Hemoglobin [Mass/volume] in BloodOrdered By: Rosa Romo on 03-22-2022 Hemoglobin (Bld) [Mass/Vol] 13.6 g/dL 11.8-15.4 [facility] Laboratory - Hematology and Cell countsOrdered By: Rosa Romo on 03-22-2022 Nucleated RBC/100 WBC (Bld) [Ratio] 0.0 % 0-0.5 [facility] Leukocytes [#/volume] in Blo od by Automated countOrdered By: Rosa Romo on 03-22-2022 WBC (Bld) [#/Vol] 8.0 10*3/uL 4.5-11.0 [facility] Lymphocytes Auto (Bld) [#/Vo l]Ordered By: Rosa Romo on 03-22-2022 Lymphocytes (Bld) [#/Vol] 2.0 10*3/uL 1.00-4.8 [facility] Lymphocytes/100 WBC Auto (Bl d)Ordered By: Rosa Romo on 03-22-2022 Lymphocytes/100 WBC (Bld) 24.9 % . [facility] MCH Auto (RBC) [Entitic mass ]Ordered By: Rosa Romo on 03-22-2022 MCH (RBC) [Entitic mass] 29.4 pg 24.7-34.3 [facility] MCHC Auto (RBC) [Mass/Vol]Or dered By: Rosa Romo on 03-22-2022 MCHC (RBC) [Mass/Vol] 32.5 g/dL 32.0-35.0 [facility] MCV Auto (RBC) [Entitic vol] Ordered By: Rosa Romo on 03-22-2022 MCV (RBC) [Entitic vol] 90.4 fL 80-100 [facility] Monocytes Auto (Bld) [#/Vol] Ordered By: Rosa Romo on 03-22-2022 Monocytes (Bld) [#/Vol] 0.4 10*3/uL 0.0-0.8 [facility] Monocytes/100 WBC Auto (Bld) Ordered By: Rosa Romo on 03-22-2022 Monocytes/100 WBC (Bld) 5.2 % . [facility] Neutrophils Auto (Bld) [#/Vo l]Ordered By: Rosa Romo on 03-22-2022 Neutrophils (Bld) [#/Vol] 5.3 10*3/uL 1.8-7.7 [facility] Neutrophils/100 WBC Auto (Bl d)Ordered By: Rosa Romo on 03-22-2022 Neutrophils/100 WBC (Bld) 66.6 % . [facility] No Panel InformationOrdered By: Rosa Romo on 03-22-2022 Estimated GFR () > 60 mL/Min [facility] Comment on above: GFR estimated refere nce range: According to KDOQI guidelines, <60 ml/min/1.73m2 is sufficient to diagnose a patient with chronic kidney disease. Pharmacy Creatinine Clearance (Chem 75.44 [facility] Platelet mean volume Auto (B ld) [Entitic vol]Ordered By: Rosa Romo on 03-22-2022 Platelet mean volume (Bld) [Entitic vol] 8.3 fL 6.3-10.7 [facility] Platelets Auto (Bld) [#/Vol] Ordered By: Rosa Romo on 03-22-2022 Platelets (Bld) [#/Vol] 506 10*3/uL 150-450 [facility] Protein [Mass/volume] in Ser um or PlasmaOrdered By: Rosa Romo on 03-22-2022 Protein [Mass/Vol] 6.5 g/dL 6.1-7.9 [facility] RBC Auto (Bld) [#/Vol]Ordere d By: Rosa Romo on 03-22-2022 RBC (Bld) [#/Vol] 4.63 10*6/uL 3.60-5.00 [facility] Serum or plasma alanine black otransferase measurement without P-5'-P (enzymatic activiOrdered By: Rosa Romo on 03-22-2022 ALT No additional P-5'-P [Catalytic activity/Vol] 17 U/L 10-60 [facility] Serum or plasma albumin/glob ulin mass ratioOrdered By: Rosa Romo on 03-22-2022 Albumin/Globulin [Mass ratio] 2.0 {ratio} [facility] Serum or plasma alkaline laurie sphatase measurement (enzymatic activity/volume)Ordered By: Rosa Romo on 03-22-2022 ALP [Catalytic activity/Vol] 56 U/L 32-92 [facility] Serum or plasma anion gap de terminationOrdered By: Rosa Romo on 03-22-2022 Anion gap [Moles/Vol] 11.6 mmol/L 6.0-15.0 [facility] Serum or plasma aspartate am inotransferase measurement (enzymatic activity/volume)Ordered By: Rosa Romo on 03-22-2022 AST [Catalytic activity/Vol] 22 U/L 10-42 [facility] Serum or plasma calcium los urement (mass/volume)Ordered By: Rosa Romo on 03-22-2022 Calcium [Mass/Vol] 9.7 mg/dL 8.2-10.2 [facility] Serum or plasma chloride theresa surement (moles/volume)Ordered By: Rosa Romo on 03-22-2022 Chloride [Moles/Vol] 100 mmol/L 95-[address] [facility] Serum or plasma glucose los urement (mass/volume)Ordered By: Rosa Romo on 03-22-2022 Glucose [Mass/Vol] 123 mg/dL 70-100 [facility] Comment on above: ADA recommended refe rence rangeRandom Glucose Reference Range is dependent on time and content of last meal. Glucose of more than 200 mg/dL in a nonstressed, ambulatory subject supports the diagnosis of Diabetes Mellitus. Serum or plasma potassium me asurement (moles/volume)Ordered By: Rosa Romo on 03-22-2022 Potassium [Moles/Vol] 4.4 mmol/L 3.5-5.1 [facility] Serum or plasma sodium measu rement (moles/volume)Ordered By: Rosa Romo on 03-22-2022 Sodium [Moles/Vol] 137 mmol/L 136-146 [facility] Serum or plasma total biliru bin measurement (mass/volume)Ordered By: Rosa Romo on 03-22-2022 Bilirubin [Mass/Vol] 1.8 mg/dL 0.3-1.[address] [facility] Comment on above: Samples from patient s who have taken Naproxen have shown spurious elevation in Total Bilirubin levels. A metabolite of Naproxen, O-desmethylnaproxen, has been shown to interfere with the Pop-Adeel method for measuring Total Bilirubin. Serum or plasma total carbon dioxide measurement (moles/volume)Ordered By: Rosa Romo on 03-22-2022 CO2 [Moles/Vol] 29.8 mmol/L 22.0-30.0 [facility] Serum or plasma urea nitroge n measurement (mass/volume)Ordered By: Rosa Romo on 03-22-2022 Urea nitrogen [Mass/Vol] 12 mg/dL 9- [facility] Basophils Auto (Bld) [#/Vol] Ordered By: Rosa Romo on 12-20-2021 Basophils (Bld) [#/Vol] 0.0 10*3/uL 0.0-0.2 [facility] Basophils/100 WBC Auto (Bld) Ordered By: Rosa Romo on 12-20-2021 Basophils/100 WBC (Bld) 0.7 % . [facility] Blood hemoglobin measurement (mass/volume)Ordered By: Rosa Romo on 12-20-2021 Hemoglobin (Bld) [Mass/Vol] 13.6 g/dL 11.8-15.4 [facility] Blood leukocytes automated c ount (number/volume)Ordered By: Rosa Romo on 12-20-2021 WBC (Bld) [#/Vol] 6.3 10*3/uL 4.5-11.0 [facility] Body fluid albumin measureme nt (mass/volume)Ordered By: Rosa Romo on 12-20-2021 Albumin (Body fld) [Mass/Vol] 4.7 g/dL 3.2-5.[address] [facility] [address] biopsyOrdered By: Rosa Galindo se on 12-20-2021 Transferrin [Mass/Vol] 258 mg/dL 180-380 [facility] Cholesterol [Mass/volume] in Serum or PlasmaOrdered By: Zeus Lamas on 12-20-2021 Cholesterol [Mass/Vol] 175 mg/dL 140-200 [facility] Comment on above: Chol less than 200 m g/dl low risk Chol 201-239 mg/dl borderline risk Chol 240 mg/dl and greater high risk Cholesterol in LDL Calc [Mas s/Vol]Ordered By: Zeus Lamas on 12-20-2021 Cholesterol in LDL [Mass/Vol] 119 mg/dL 0-100 [facility] Comment on above: LDL ATP III CLASSIFI CATION LDL less than 100 mg/dL Optimal LDL 100-129 mg/dL Near or above optimal LDL 130-159 mg/dL Borderline high LDL 160-189 mg/dL High LDL greater than 189 mg/dL Very high Cholesterol in VLDL Calc [Ma ss/Vol]Ordered By: Zeus Lamas on 12-20-2021 Cholesterol in VLDL [Mass/Vol] 11 mg/dL [facility] Creatinine and Glomerular fi ltration rate.predicted panel (S/P/Bld)Ordered By: Rosa Romo on 12-20-2021 Creatinine [Mass/Vol] 0.78 mg/dL 0.44-1.03 [facility] Eosinophils Auto (Bld) [#/Vo l]Ordered By: Rosa Romo on 12-20-2021 Eosinophils (Bld) [#/Vol] 0.2 10*3/uL 0.0-0.45 [facility] Eosinophils/100 WBC Auto (Bl d)Ordered By: Rosa Romo on 12-20-2021 Eosinophils/100 WBC (Bld) 2.9 % . [facility] Erythrocyte distribution wid th Auto (RBC) [Ratio]Ordered By: Rosa Romo on 12-20-2021 Erythrocyte distribution width (RBC) [Ratio] 15.6 % 11.9-15.3 [facility] Estimated glomerular filtrat ion rate (GFR) non- AmericanOrdered By: Rosa Romo on 12-20-2021 GFR/1.73 sq M.predicted among non-blacks MDRD (S/P/Bld) [Vol rate/Area] > 60 mL/Min [facility] Ferritin [Mass/volume] in Se rum or PlasmaOrdered By: Rosa Romo on 12-20-2021 Ferritin [Mass/Vol] 278.9 ng/mL 11-306.[address] [facility] Globulin Calc (S) [Mass/Vol] Ordered By: Rosa Romo on 12-20-2021 Globulin (S) [Mass/Vol] 2.2 g/dL [facility] Hematocrit Auto (Bld) [Volum e fraction]Ordered By: Rosa Romo on 12-20-2021 Hematocrit (Bld) [Volume fraction] 41.2 % 34.0-46.4 [facility] Iron [Mass/volume] in Serum or PlasmaOrdered By: Rosa Romo on 12-20-2021 Iron [Mass/Vol] 90 ug/dL 40-150 [facility] Iron binding capacity [Mass/ volume] in Serum or PlasmaOrdered By: Rosa Romo on 12-20-2021 Iron binding capacity [Mass/Vol] 361 ug/dL 255-450 [facility] Iron saturation [Mass Fracti on] in Serum or PlasmaOrdered By: Rosa Romo on 12-20-2021 Iron saturation [Mass fraction] 24.0 % 20-50 [facility] - Hematology and Cell countsOrdered By: Rosa Romo on 12-20-2021 Nucleated RBC/100 WBC (Bld) [Ratio] 0.0 % 0-0.5 [facility] Lymphocytes Auto (Bld) [#/Vo l]Ordered By: Rosa Romo on 12-20-2021 Lymphocytes (Bld) [#/Vol] 1.7 10*3/uL 1.00-4.8 [facility] Lymphocytes/100 WBC Auto (Bl d)Ordered By: Rosa Romo on 12-20-2021 Lymphocytes/100 WBC (Bld) 26.9 % . [facility] MCH Auto (RBC) [Entitic mass ]Ordered By: Rosa Romo on 12-20-2021 MCH (RBC) [Entitic mass] 29.8 pg 24.7-34.3 [facility] MCHC Auto (RBC) [Mass/Vol]Or dered By: Rosa Romo on 12-20-2021 MCHC (RBC) [Mass/Vol] 33.1 g/dL 32.0-35.0 [facility] MCV Auto (RBC) [Entitic vol] Ordered By: Rosa Romo on 12-20-2021 MCV (RBC) [Entitic vol] 90.0 fL 80-100 [facility] Monocytes Auto (Bld) [#/Vol] Ordered By: Rosa Romo on 12-20-2021 Monocytes (Bld) [#/Vol] 0.4 10*3/uL 0.0-0.8 [facility] Monocytes/100 WBC Auto (Bld) Ordered By: Rosa Romo on 12-20-2021 Monocytes/100 WBC (Bld) 6.3 % . [facility] Neutrophils Auto (Bld) [#/Vo l]Ordered By: Rosa Romo on 12-20-2021 Neutrophils (Bld) [#/Vol] 4.0 10*3/uL 1.8-7.7 [facility] Neutrophils/100 WBC Auto (Bl d)Ordered By: Rosa Romo on 12-20-2021 Neutrophils/100 WBC (Bld) 63.2 % . [facility] No Panel InformationOrdered By: Rosa Romo on 12-20-2021 Estimated GFR () > 60 mL/Min [facility] Comment on above: GFR estimated refere nce range: According to KDOQI guidelines, <60 ml/min/1.73m2 is sufficient to diagnose a patient with chronic kidney disease. Pharmacy Creatinine Clearance (Chem 76.40 [facility] Platelet mean volume Auto (B ld) [Entitic vol]Ordered By: Rosa Romo on 12-20-2021 Platelet mean volume (Bld) [Entitic vol] 8.5 fL 6.3-10.7 [facility] Platelets Auto (Bld) [#/Vol] Ordered By: Rosa Romo on 12-20-2021 Platelets (Bld) [#/Vol] 527 10*3/uL 150-450 [facility] Protein [Mass/volume] in Ser um or PlasmaOrdered By: Rosa Romo on 12-20-2021 Protein [Mass/Vol] 6.9 g/dL 6.1-7.9 [facility] RBC Auto (Bld) [#/Vol]Ordere d By: Rosa Romo on 12-20-2021 RBC (Bld) [#/Vol] 4.58 10*6/uL 3.60-5.00 [facility] Serum or plasma alanine black otransferase measurement without P-5'-P (enzymatic activiOrdered By: Rosa Romo on 12-20-2021 ALT No additional P-5'-P [Catalytic activity/Vol] 22 U/L 10-60 [facility] Serum or plasma albumin/glob ulin mass ratioOrdered By: Rosa Romo on 12-20-2021 Albumin/Globulin [Mass ratio] 2.1 {ratio} [facility] Serum or plasma alkaline laurie sphatase measurement (enzymatic activity/volume)Ordered By: Rosa Romo on 12-20-2021 ALP [Catalytic activity/Vol] 52 U/L 32-92 [facility] Serum or plasma aspartate am inotransferase measurement (enzymatic activity/volume)Ordered By: Rosa Romo on 12-20-2021 AST [Catalytic activity/Vol] 24 U/L 10-42 [facility] Serum or plasma calcium los urement (mass/volume)Ordered By: Rosa Romo on 12-20-2021 Calcium [Mass/Vol] 9.9 mg/dL 8.2-10.2 [facility] Serum or plasma chloride theresa surement (moles/volume)Ordered By: Rosa Romo on 12-20-2021 Chloride [Moles/Vol] 100 mmol/L 95-[address] [facility] Serum or plasma glucose los urement (mass/volume)Ordered By: Rosa Romo on 12-20-2021 Glucose [Mass/Vol] 89 mg/dL 70-100 [facility] Comment on above: ADA recommended refe rence range Random Glucose Reference Range is dependent on time and content of last meal. Glucose of more than 200 mg/dL in a nonstressed, ambulatory subject supports the diagnosis of Diabetes Mellitus. Serum or plasma high density lipoprotein (HDL) cholesterol measurementOrdered By: Zeus Lamas on 12-20-2021 Cholesterol in HDL [Mass/Vol] 45 mg/dL 35-85 [facility] Comment on above: HDL CHOL ATP-III CLA SSIFICATION Cardiovascular Risk HDL > or equal to 60 mg/dL LOW HDL < 40 mg/dL HIGH Serum or plasma potassium me asurement (moles/volume)Ordered By: Rosa Romo on 12-20-2021 Potassium [Moles/Vol] 4.0 mmol/L 3.5-5.1 [facility] Serum or plasma sodium measu rement (moles/volume)Ordered By: Rosa Romo on 12-20-2021 Sodium [Moles/Vol] 138 mmol/L 136-146 [facility] Serum or plasma total biliru bin measurement (mass/volume)Ordered By: Rosa Romo on 12-20-2021 Bilirubin [Mass/Vol] 1.4 mg/dL 0.3-1.[address] [facility] Comment on above: Samples from patient s who have taken Naproxen have shown spurious elevation in Total Bilirubin levels. A metabolite of Naproxen, O-desmethylnaproxen, has been shown to interfere with the Jenjesenia-Adeel method for measuring Total Bilirubin. Serum or plasma total carbon dioxide measurement (moles/volume)Ordered By: Rosa Romo on 12-20-2021 CO2 [Moles/Vol] 30.2 mmol/L 22.0-30.0 [facility] Serum or plasma total choles terol/high density lipoprotein (HDL) cholesterol mass ratOrdered By: Zeus Lamas on 12-20-2021 Cholesterol.total/Chol esterol in HDL [Mass ratio] 3.9 {ratio} <5.0 [facility] Serum or plasma urea nitroge n measurement (mass/volume)Ordered By: Rosa Romo on 12-20-2021 Urea nitrogen [Mass/Vol] 9 mg/dL 9-23 [facility] Triglyceride [Mass/volume] i n Serum or PlasmaOrdered By: Zeus Lamas on 12-20-2021 Triglyceride [Mass/Vol] 57 mg/dL 35-149 [facility] Comment on above: TRIG ATP III CLASSIF ICATION TRIG less than 150 mg/dL Normal TRIG 150-199 mg/dL Borderline high TRIG 200-500 mg/dL High TRIG greater than 500 mg/dL Very high Standard traceable to the Center for Disease Conrtrol and Prevention (CDC) test method. Complete Blood Counton 05-16 Erythrocyte distribution width (RBC) [Ratio] 14.4 % Normal 11.0-15.0 [facility] Tube Test Technician Comment on above: Performed By: #### C BC #### [facility] [address] [place], [place] [id number] Hematocrit (Bld) [Volume fraction] 44.4 % Normal 35.0-47.0 [facility] Tube Test Technician Comment on above: Performed By: #### C BC #### [facility] [address], [place] [id number] Hemoglobin (Bld) [Mass/Vol] 14.1 g/dL Normal 11.6-15.5 [facility] Tube Test Technician Comment on above: Performed By: #### C BC #### [facility] [address], [place] [id number] MCH (RBC) [Entitic mass] 28.3 pg Normal 27.0-33.0 [facility] Comment on above: Performed By: #### C BC #### [facility] [address], [place] [id number] MCHC (RBC) [Mass/Vol] 31.8 g/dL Low 32.0-36.0 [facility] Comment on above: Performed By: #### C BC #### [facility] [address], [place] [id number] MCV (RBC) [Entitic vol] 89 fL Normal 80-100 [facility] Comment on above: Performed By: #### C BC #### [facility] [address], [place] [id number] Platelet mean volume (Bld) [Entitic vol] 10.40 fL Normal 7.50-12.50 [facility] Comment on above: Performed By: #### C BC #### [facility] [address], [place] [id number] Platelets (Bld) [#/Vol] 555 10*3/uL High 140-400 [facility] Comment on above: Performed By: #### C BC #### [facility] [address], [place] [id number] RBC (Bld) [#/Vol] 4.99 10*6/uL Normal 3.90-5.20 [facility] Comment on above: Performed By: #### C BC #### [facility] [address] [place], [place] [id number] RDW-SD 46.8 fL Normal 37.0-50.0 [facility] Comment on above: Performed By: #### C BC #### [facility] [address] [place], [place] [id number] WBC (Bld) [#/Vol] 6.7 10*3/uL Normal 3.8-11.0 [facility] Comment on above: Performed By: #### C BC #### [facility] [address] [place], [place] [id number] CNOVon 03-17-2021 CNOV Office Visit (CARDMN ) GLORIA ALLEN ([id number]) 1960 F Date Time Provider Department 03/17/21 [...] to seek emergency care. She wore a [employer] event monitor for 12 days in January [...] bearing down or coughing Occur 3x/week Wore [employer] event monitor for 12 days in 01/2021. [...] No sudden deaths, atrial fibrillation. 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 , 3 children, 1 grandchild. Lives in [place], [place] Habits: Tobacco: none. Alcohol: 1 drink [...] acid (RHIANNON (more content not included)... Normal [facility] 03-17-2021 CNPN Telephone (CARDMN) GLORIA ALLEN ([id number]) 1960 F Date Time Provider Department 03/17/21 NIKITA REYES During your visit today, we recorded the following information about you: Philly Nair 03/17/2021 4:06 PM Signed Outside medical records scanned into [employer] [facility] drive. Disk uploaded to [employer]: Echocardiogram 01/27/2021. Allergies As of Date: 03/17/2021 (Not on File) Date Reviewed: Never Reviewed Reason for Visit: Received Outside Medical Records [8559] Problem List As Of Date: 03/17/2021 (None) Encounter Status:Closed by PHILLY NAIR on 03/17/21 [facility] 12-31-2020 CNCO Letter Text [facility] CNPNon 12-30-2020 CNPN Telephone (REFPHY) GLORIA ALLEN ([id number]) 1960 F Date Time Provider Department 12/30/20 NO PCP (HISTORICAL) REFPHY During your visit today, we recorded the following information about you: Kyle Crowell 12/30/2020 9:12 AM Signed Patient: Gloria Allen Date of : 1960 Patient phone number: [phone] Referring Provider for the encounter: Zeus Lamas Requesting Provider: Nikita Reyes Reason for requesting visit (RFV/signs and symptoms/diagnosis): palpitations Person calling: via RP fax Return call to: self Medical Records/Insurance Card scanned into [employer]: No Comments: helder Boles 12/31/2020 10:34 AM Signed [facility] RP - Message left for patient to call back to schedule an appointment in EP? for Palpitations, requesting Dr. Reyes per RP referrals. Allergies As of Date: 12/30/2020 (Not on File) Date Reviewed: Never Reviewed Reason for Visit: External Referrals/resources [909] Problem List As Of Date: 12/30/2020 (None) Encounter Status:Closed by KYLE MUNOZ on 12/30/20 [facility] CNPNon 12-23-2020 CNPN Telephone (REFPHY) GLORIA ALLEN ([id number]) 1960 F Date Time Provider Department 12/23/20 NO ONE (HISTORICAL) REFPHY During your visit today, we recorded the following information about you: Alexandria Hernandez 12/23/2020 7:19 AM Signed Patient: Gloria Allen Date of : 1960 Patient phone number: [phone] Referring Provider for the encounter: Dr Zeus Lamas Requesting Provider: Dr Wesley Mallory - Cardiology Reason for requesting visit (RFV/signs and symptoms/diagnosis): Tachycardia, palipatations Person calling: caregiver: ASHLEY Return call to: self Medical Records/Insurance Card scanned into [employer]: Yes Comments: Additional records saved to [employer] Cheyenne Boles 12/23/2020 9:31 AM Signed HVTI [...] ALEXANDRIA TERRY on 12/23/[address] [facility] Albumin [Mass/volume] in Ser um or PlasmaOrdered By: Rosa Romo on 12-16-2020 Albumin [Mass/Vol] 3.9 g/dL 2.9-4.4 [facility] Immunoglobulin light chains. kappa.free [Mass/volume] in SerumOrdered By: Rosa Romo on 12-16-2020 Immunoglobulin light chains.kappa.free (S) [Mass/Vol] 12.3 mg/L 3.3-19.4 [facility] Immunoglobulin light chains. kappa.free/Immunoglobulin light chains.lambda.free [MassOrdered By: Rosa Romo on 12-16-2020 Immunoglobulin light chains.kappa.free/Immu noglobulin light chains.lambda.free (S) [Mass ratio] 0.83 0.26-1.65 [facility] Comment on above: Performed at: [address] [id number] Assistant Dean: Osiel Combs PhD, Phone: [phone] Performed at: [address] [id number] Director: Osiel Combs PhD, Phone: [phone] Immunoglobulin light chains. lambda.free [Mass/volume] in Serum or PlasmaOrdered By: Rosa Romo on 12-16-2020 Immunoglobulin light chains.lambda.free [Mass/Vol] 14.8 mg/L 5.7-26.3 [facility] No Panel InformationOrdered By: Rosa Romo on 12-16-2020 25-Hydroxy Vitamin D Total 51.1 ng/mL 30-100 [facility] Comment on above: VITAMIN D STATUS 25( [...] Not observed g/dL Not Observed [facility] Protein Electrophoresis Note See comment . [facility] Comment on above: Protein electrophore sis scan will follow via computer, mail, or general lithographic worker delivery. Performed at: [facility] [employer] [id number] Assistant Dean: Osiel Combs PhD, Phone: [phone] Protein electrophore sis scan will follow via computer,mail, or general lithographic worker delivery.Performed at: [facility] [employer] [id number] Director: Osiel Combs PhD, Phone: [phone] Protein [Mass/volume] in Ser um or PlasmaOrdered By: Rosa Romo on 12-16-2020 Protein [Mass/Vol] 7.0 g/dL 6.0-8.5 [facility] Serum globulin measurement ( mass/volume)Ordered By: Rosa Romo on 12-16-2020 Globulin (S) [Mass/Vol] 3.1 g/dL 2.2-3.9 [facility] Serum or plasma albumin/glob ulin mass ratioOrdered By: Rosa Romo on 12-16-2020 Albumin/Globulin [Mass ratio] 1.3 {ratio} 0.7-1.7 [facility] Serum or plasma alpha 1 glob ulin measurement by electrophoresis (mass/volume)Ordered By: Rosa Romo on 12-16-2020 Alpha 1 globulin Elph [Mass/Vol] 0.2 g/dL 0.0-0.4 [facility] Serum or plasma alpha 2 glob ulin measurement by electrophoresis (mass/volume)Ordered By: Rosa Romo on 12-16-2020 Alpha 2 globulin Elph [Mass/Vol] 0.7 g/dL 0.4-1.0 [facility] Serum or plasma beta globuli n measurement by electrophoresis (mass/volume)Ordered By: Rosa Romo on 12-16-2020 Beta globulin Elph [Mass/Vol] 1.1 g/dL 0.7-1.3 [facility] Serum or plasma calcitriol m easurement (mass/volume)Ordered By: Rosa Romo on 12-16-2020 1,25-dihydroxyvitamin D3 [Mass/Vol] 60.1 pg/mL 19.9-79.3 [facility] Comment on above: Performed at: [facility] [address] [id number] Assistant Dean: Mitchell Glynn MD, Phone: [phone] Performed at: [facility] [address] [id number] Director: Mitchell Glynn MD, Phone: [phone] Serum or plasma gamma globul in measurement by electrophoresis (mass/volume)Ordered By: Rosa Romo on 12-16-2020 Gamma globulin Elph [Mass/Vol] 1.0 g/dL 0.4-1.8 [facility] Serum or plasma intact parat hyroid hormone measurement (mass/volume)Ordered By: Rosa Romo on 12-16-2020 Parathyrin.intact [Mass/Vol] 44.6 pg/mL 12- [facility] TSH DL <= 0.005 mIU/L QnOrde red By: Rosa Romo on 12-16-2020 TSH Qn 1.61 m[IU]/L 0.45-5.33 [facility] Thyroxine (T4) free [Mass/vo lume] in Serum or PlasmaOrdered By: Rosa Romo on 12-16-2020 Free T4 [Mass/Vol] 0.73 ng/dL 0.61-1.12 [facility] Activated partial thrombopla stin time (aPTT) in platelet poor plasma by coagulation aon 06-15-2020 aPTT Coag (PPP) [Time] 28.4 s 22.9-30.2 [facility] - Coagulationon 0 06-15-2020 PT Coag (PPP) [Time] 11.2 s 9.1-12.[address] [facility] No Panel Informationon 06-15 Coagulation Factor VIII Activity 116 % 56-140 [facility] Platelet poor plasma interna tional normalized ratio (INR) by coagulation assay (relaton 06-15-2020 INR Coag (PPP) [Relative time] 1.1 {INR} 0.9-1.2 [facility] Comment on above: INR Therapeutic Rang e [...] Nom (PPP) See comment . [facility] Comment on above: VWF multimer analysi s [...] developed and its performance characteristics determined by [facility]. It has not been cleared or approved by the Food and Drug Administration. Performed at: [facility] [address] [id number] Assistant Dean: Sivakumar Mejia MD, Phone: [phone] VWF multimer analysi s demonstrates a normal pattern anddistribution of bands. This is the pattern of multimersthat occurs in normal individuals as well as in those withtype 1 von Willebrand disease (VWD), type 2M and type 2NVWD. Some acquired von Willebrand syndrome cases may yielda normal pattern as well.No additional results available for further interpretation.This test was developed and its performance characteristicsdetermined by [facility]. It has not been cleared or approvedby the Food and Drug Administration.Performed at: [email or web address] [address] [id number] Director: Sivakumar Mejia MD, Phone: [phone] Von Willebrand factor activi ty measurementon 06-15-2020 vWf ristocetin cofactor act actual/normal Platelet aggregation (PPP) [Relative time] 62 % 50-200 [facility] Comment on above: Performed at: [facility] [address] [id number] Assistant Dean: Mitchell Glynn MD, Phone: [phone] Performed at: [facility] [address] [id number] Director: Mitchell Glynn MD, Phone: [phone] Von Willebrand factor antige n measurementon 06-15-2020 vWf Ag Qn (PPP) 86 % 50-200 [facility] Comment on above: This test was develo ped and its performance characteristics determined by [facility]. It has not been cleared or approved by the Food and Drug Administration. This test was develo ped and its performance characteristicsdetermined by [facility]. It has not been cleared orapproved by the Food and Drug Administration. No Panel Informationon 06-04 BCR/abl See comment [facility] Comment on above: See report. Scanned copy available in EMR. Calreticulin Mutation See comment [facility] Comment on above: See report. Scanned copy available in EMR.See report. Scanned copy available in EMR. --- 06/11/20799 --- Calr previously reported as: See report. Scanned copy available in EMR. See report. Scanned copy available in EMR.See report. Scanned copy available in EMR. --- 06/11/20799 ---Calr previously reported as: See report. Scanned copy available in EMR. JAK2 [id number] See comment [facility] Comment on above: See report. Scanned copy available in EMR.See report. Scanned copy available in EMR. --- 06/11/20799 --- VILLA 2 previously reported as: See report. Scanned copy available in EMR. See report. Scanned copy available in EMR.See report. Scanned copy available in EMR. --- 06/11/20799 ---VILLA 2 previously reported as: See report. Scanned copy available in EMR. MPL Mutation Analysis See comment [facility] Comment on above: See report. Scanned copy available in EMR. C reactive protein [Mass/vol ume] in Serum or Plasmaon 05-31-2020 CRP [Mass/Vol] < 0.5 mg/dL 0.0-1.0 [facility] - Hematology and Cell countson 05-31-2020 WBC (Bld) [#/Vol] 8.9 10*3/uL 4.5-11.0 [facility] Serum homogeneous pattern an tinuclear antibody (STEPHANIE) titeron 05-31-2020 Homogenous nuclear Ab pattern (S) [Titer] N/A [facility] Serum nuclear antibody titer on 05-31-2020 Nuclear Ab (S) [Titer] Negative . [facility] Comment on above: Negative <1:80 Borderline 1:80 Positive >1:80 Performed at: [facility] [address] [place], [place] [id number] Assistant Dean: Osiel Combs PhD, Phone: [phone] Negative <1:80 Borde rline 1:80 Positive >1:80Performed at: [facility] [address] [id number] Director: Osiel Combs PhD, Phone: [phone] Serum or plasma rheumatoid f actor measurement (units/volume)on 05-31-2020 Rheumatoid factor Qn [IU]/mL 0.0-13.[address] [facility] Comment on above: Performed at: [facility] [place] [id number] Assistant Dean: Osiel Combs PhD, Phone: [phone] Performed at: [facility] [address] [id number] Director: Osiel Combs PhD, Phone: [phone] OVER READ - NCon 12-20-2017 OVER READ [...] extra arterial structures are otherwise unremarkable. Normal [facility] Healthcare Vital Signs Date Time Vital Sign Value Performing Clinician Faci lity 03-21-2023 11:110400 Body temperature 97.8 [degF] DO Zeus Matik Work Phone: [facility] 03-21-2023 11:11040 Body weight 74.38 kg DO Zeus Matik Work Phone: [facility] 03-21-2023 11:11-0400 Diastolic blood pressure 77 mm[Hg] DO Zeus Cristinachak Work Phone: [facility] 03-21-2023 11:11-0400 Heart rate 64 /min DO Zeus Cristinachak Work Phone: [facility] 03-21-2023 11:11-0400 Respiratory rate 16 /min DO Zeus Cristinachak Work Phone: [facility] 03-21-2023 11:11-0400 SaO2% (BldA) [Mass fraction] 98 % DO Zeus Cristinachak Work Phone: [facility] 03-21-2023 11:11-0400 Systolic blood pressure 132 mm[Hg] DO Zeus Vaschak Work Phone: [facility] 03-24-2022 11:17-0400 Body temperature 97.8 [degF] DO Zeus Cristinachak Work Phone: [facility] 03-24-2022 11:17-0400 Body weight 70.76 kg DO Zeus Cristinachak Work Phone: [facility] 03-24-2022 11:17-0400 Diastolic blood pressure 81 mm[Hg] DO Zeus Vaschak Work Phone: [facility] 03-24-2022 11:17-0400 Heart rate 58 /min DO Zeus Vaschak Work Phone: [facility] 03-24-2022 11:17-0400 Respiratory rate 16 /min DO Zeus Vaschak Work Phone: [facility] 03-24-2022 11:17-0400 SaO2% (BldA) [Mass fraction] 100 % DO Zeus Vaschak Work Phone: [facility] 03-24-2022 11:17-0400 Systolic blood pressure 133 mm[Hg] DO Zeus Vaschak Work Phone: [facility] 12-23-2021 14:43-0400 Body temperature 97.8 [degF] DO Zeus Vaschak Work Phone: [facility] 12-23-2021 14:43-0400 Body weight 69.85 kg DO Zeus Vaschak Work Phone: [facility] 12-23-2021 14:43-0400 Diastolic blood pressure 75 mm[Hg] DO Zeus Vaschak Work Phone: [facility] 12-23-2021 14:43-0400 Heart rate 62 /min DO Zeus Vaschak Work Phone: [facility] 12-23-2021 14:43-0400 Respiratory rate 16 /min DO Zeus Vaschak Work Phone: [facility] 12-23-2021 14:43-0400 SaO2% (BldA) [Mass fraction] 99 % DO Zeus Vaschak Work Phone: [facility] 12-23-2021 14:43-0400 Systolic blood pressure 126 mm[Hg] DO Zeus Vaschak Work Phone: [facility] 05-31-2020 13:09-0500 Body height 172.72 cm DO Zeus Lamas Work Phone: [facility] Encounters Encounter Date Encounter Type Care Provider Facility Start: 09-12-2023 ambulatory Rosa Demetrius Facility:[facility] Start: 09-11-2023 End: 09-11-2023 ambulatory Mckenzie Perkins Facility:[facility] Start: 09-11-2023 End: 09-11-2023 ambulatory DO Zeus Lamas Work Phone: [facility] Work Phone: Start: 09-11-2023 End: 09-11-2023 Patient encounter procedure DO Zeus Thornek Work Phone: [facility] Work Phone: Start: 06-05-2023 End: 06-05-2023 ambulatory MCKENZIE PERKINS Not Available Start: 03-21-2023 End: 03-21-2023 ambulatory DO Zeus Lamas Work Phone: [facility] Work Phone: Start: 03-21-2023 End: 03-21-2023 Registered Recurring DO Zeus Lamas Work Phone: [facility] Work Phone: Start: 03-19-2023 End: 03-19-2023 ambulatory Zeus Lamas Facility:[facility] Start: 03-19-2023 Encounter for genera l adult medical examination without abnormal findings Zeus Lamas [facility] Start: 03-19-2023 Registered Recurring DO Zeus Matik Work Phone: [facility] Work Phone: Start: 03-19-2023 End: 03-19-2023 ambulatory DO Zeus Matik Work Phone: [facility] Work Phone: Start: 03-19-2023 End: 03-19-2023 Patient encounter procedure DO Zeus Vaschak Work Phone: [facility] [place] Work Phone: Start: 09-08-2022 End: 09-08-2022 ambulatory DO Zeus Lamas Work Phone: [facility] Work Phone: Start: 09-08-2022 End: 09-08-2022 Patient encounter procedure DO Zeus Lamas Work Phone: [facility] Work Phone: Start: 08-31-2022 End: 08-31-2022 ambulatory DO Zeus Lamas Work Phone: [facility] Work Phone: Start: 08-31-2022 End: 08-31-2022 Patient encounter procedure DO Zeus Lamas Work Phone: [facility] Work Phone: Start: 03-24-2022 End: 03-24-2022 ambulatory DO Zeus Lamas Work Phone: [facility] Work Phone: Start: 03-24-2022 End: 03-24-2022 Registered Recurring DO Zeus Lamas Work Phone: [facility] Start: 12-23-2021 End: 12-23-2021 Registered Recurring DO Zeus Lamas Work Phone: [facility] Start: 12-20-2021 End: 12-20-2021 Patient encounter procedure DO Zeus Lamas Work Phone: [facility] [place] Start: 12-20-2017 Patient encounter ZEUS LMAAS Fac ility:[id number] Procedures Date Procedure Procedure Detail [...] Detail Author Start: 12-23-2021 Registered Recurring Thrombocytosis [facility] Start: 09-28-2021 [facility] Start: 09-21-2021 [facility] Start: 08-19-2021 [facility] Comprehensive metabo lic 1999 panel - Serum or Plasma [facility] Work Phone: Comprehensive metabo lic 1999 panel - Serum or Plasma [facility] Comprehensive metabo lic 1999 panel - Serum or Plasma [facility] Payers Date Payer Category Payer Self-pay [id number] 2020 Unknown [id number] 21 [id number] 2020 Unknown [id number] 1960 Unknown [id number] [id number] [id number] Unknown TIFFANY TENORIO Unknown [id number] 2.16.8 [id number] Unknown [id number] 2.16.8 [id number] Unknown [id number] 2.16.8 [id number] Social History Date Type Detail Facility Start: 12-23-2021 End: 03-24-2022 Tobacco smoking status NHIS Never smoked tobacco (finding) [facility] Start: 1960 Sex Assigned At Female F [facility] Clinical Notes 05-31-2020 to 03-24-2022 Note Date & Type Note Facility 03-24-2022 Progress note Note Date/Time March 24, 2022 11:23[facility] at [address] [address] Hem/Onc Follow Up Note - OP Signed Patient: Gloria Allen MR#: [id number] : 1960 Acct:[id number] Age/Sex: 61 / F Type: REG RCR [...] iron stores in one month (f/u with [employer]). If platelets < 450,000 at that time, [...] 03/24/22 @ 16:09 by Rosa Romo MD) [place] teeth removed - Family History Family History: [...] % (Auto) 66.6, Lymph % (Auto) 24.9, [place] % (Auto) 5.2, Eos % (Auto) 2.4, Baso % (Auto) 0.9, Neut # (Auto) 5.3, Lymph # (Auto) 2.0, [place] # (Auto) 0.4, Eos # (Auto) 0.2, [...] 4-6 weeks to review iron studies with [employer], 4 month f/u CBC and determine cytoreduction [...] for coordination of care (as documented) and [id number] counseling of patient and/or family. Dictated By: Rosa Romo MD DD/ 21 Signed By: <Electronically signed by MD Rosa Romo> 03/24/22 1615 [facility] Work Phone: 1(885) 846-196407-30-2022 Progress note Author Rosa Romo [facility] December 24, 2021 4:39pm Note Date/Time December 23, 2021 2:49 pm [facility] [place] [place] [address] Hem/Onc Follow Up Note - OP Signed Patient: Gloria Allen MR#: [id number] : 1960 Acct:[id number] Age/Sex: 61 / F Type: REG RCR [...] iron stores in one month (f/u with [employer]). If platelets < 450,000 at that time, [...] Negative for environmental allergies and food allergies. [facility] - History Attestation statement: The following information was validated with the patient. Source: Old Records Reviewed - Medical History Medical History: Medical History (Last Reviewed 12/24/21 @ 16:34 by Rosa Romo MD) delivery delivered - Surgical History Surgical History: Surgical History (Last Reviewed 12/24/21 @ 16:34 by Rosa Romo MD) [place] teeth removed - Family History Family History: [...] % (Auto) 63.2, Lymph % (Auto) 26.9, [place] % (Auto) 6.3, Eos % (Auto) 2.9, Baso % (Auto) 0.7, Neut # (Auto) 4.0, Lymph # (Auto) 1.7, [place] # (Auto) 0.4, Eos # (Auto) 0.2, [...] 4-6 weeks to review iron studies with [employer], 4 month f/u CBC and determine cytoreduction [...] for coordination of care (as documented) and ulsd-ld-ufag counseling of patient and/or family. Dictated By: Rosa Romo MD DD/ 1448 Signed By: <Electronically signed by MD Rosa Romo> 12/24/21 4476 [facility] Work Phone: 1(918) 836-456004-23-2022 Progress note Author Rosa Romo [facility] September 17, 2021 6:26pm Note Date/Time September 16, 2021 12: 45pm [facility] [place] at [address] [address] Hem/Onc Follow Up Note - OP Signed Patient: Gloria Allen MR#: [id number] : 1960 Acct:[id number] Age/Sex: 61 / F Type: REG RCR [...] iron stores in one month (f/u with [employer]). If platelets < 450,000 at that time, [...] Negative for environmental allergies and food allergies. [facility] - History Attestation statement: The following information was validated with the patient. Source: Old Records Reviewed - Medical History Medical History: Medical History (Last Reviewed 09/17/21 @ 18:19 by Rosa Romo MD) delivery delivered - Surgical History Surgical History: Surgical History (Last Reviewed 09/17/21 @ 18:19 by Rosa Romo MD) [place] teeth removed - Family History Family History: [...] 4-6 weeks to review iron studies with [employer], 4 month f/u CBC and determine cytoreduction [...] for coordination of care (as documented) and doqq-yx-duen counseling of patient and/or family. Dictated By: Rosa Romo MD DD/ 1245 Signed By: <Electronically signed by MD Rosa Romo> 09/17/21 0426 [facility] Work Phone: 1(411) 176-332003-25-2022 [facility]23-2021 Progress note Author Rosa Romo [facility] May 19, 2021 7:48pm Note Date/Time May 19, 2021 3:41pm [facility] at [address] [address] Hem/Onc Follow Up Note - OP Signed Patient: Gloria Allen MR#: [id number] : 1960 Acct:[id number] Age/Sex: 61 / F Type: REG RCR [...] Negative for environmental allergies and food allergies. [facility] - History Attestation statement: The following information was validated with the patient. Source: Old Records Reviewed - Medical History Medical History: Medical History (Last Reviewed 05/19/21 @ 15:43 by Rosa Romo MD) delivery delivered - Surgical History Surgical History: Surgical History (Last Reviewed 05/19/21 @ 15:43 by Rosa Romo MD) [place] teeth removed - Family History Family History: [...] 08:50 12/16/20 08:50 Outside Labs: Labs at [facility] laboratory: 05/16/2021: White blood cells 6700, [...] noted on monitoring. Transcribed By: ELIZABETH 03/17/21 9344 Dictated By: Zeus Lamas DO 03/16/21 2978 Assessment and Plan - TNM Staging Staging: [...] for coordination of care (as documented) and tlrb-rb-vqwp counseling of patient and/or family. Dictated By: Rosa Romo MD DD/ 1534 Signed By: <Electronically signed by MD Rosa Romo> 05/19/211947 [facility] Work Phone: [phone] 497-153710-21-2021 NoteHNO ID: [id number] Author: Nikita Reyes MD Service: ? Author [...] to seek emergency care. She wore a [employer] event monitor for 12 days in January [...] bearing down or coughing Occur 3x/week Wore [employer] event monitor for 12 days in 01/2021. [...] No sudden deaths, atrial fibrillation. 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 , 3 children, 1 grandchild. Lives in [place], [place] Habits: Tobacco: none. Alcohol: 1 drink [...] T (more content not included)... [facility]08-03-2021 Progress note Author Rosa Romo [facility] December 28, 2020 7:12am Note Date/Time December 27, 2020 3:4 6pm [facility] [place] [address] Hem/Onc Follow Up Note - OP Signed Patient: Gloria Allen MR#: [id number] : 1960 Acct:[id number] Age/Sex: 60 / F Type: REG RCR [...] 12/28/20 @ 07:08 by Rosa Romo MD) [place] teeth removed - Family History Family History: [...] for coordination of care (as documented) and ldsl-yt-ftsw counseling of patient and/or family. Dictated By: Rosa Romo MD DD/ 1545 Signed By: <Electronically signed by MD Rosa Romo> 12/28/20 0712 [facility] Work Phone: 1(357) 754-867604-20-2021 Progress note Author Rosa Romo [facility] September 14, 2020 7:40pm Note Date/Time September 13, 2020 4:0 3pm [facility] [place] [place] [address] Hem/Onc Follow Up Note - OP Signed Patient: Gloria Allen MR#: [id number] : 1960 Acct:[id number] Age/Sex: 60 / F Type: REG RCR [...] Negative for environmental allergies and food allergies. [facility] - History Attestation statement: The following information was validated with the patient. Source: Old Records Reviewed - Medical History Medical History: Medical History (Last Reviewed 09/14/20 @ 19:34 by Rosa Romo MD) delivery delivered - Surgical History Surgical History: Surgical History (Last Reviewed 09/14/20 @ 19:34 by Rosa Romo MD) [place] teeth removed - Family History Family History: [...] % (Auto) 70.2, Lymph % (Auto) 19.6, [place] % (Auto) 7.3, Eos % (Auto) 2.3, Baso % (Auto) 0.6, Neut # (Auto) 6.0, Lymph # (Auto) 1.7, [place] # (Auto) 0.6, Eos # (Auto) 0.2, [...] for coordination of care (as documented) and tziy-me-yezm counseling of patient and/or family. Dictated By: Rosa Romo MD DD/ 7933 Signed By: <Electronically signed by MD Rosa Romo> 09/14/201939 [facility] Work Phone: 1(930) 668-129701-18-2021 Progress note Author Rosa Romo [facility] June 14, 2020 4:10pm Note Date/Time June 14, 2020 3 :26pm [facility] at [place] [id number] Hem/Onc Follow Up Note - OP Signed Patient: Gloria Allen MR#: [id number] : 1960 Acct:[id number] Age/Sex: 60 / F Type: REG RCR [...] 06/14/20 @ 15:59 by Rosa Romo MD) [place] teeth removed - Family History Family History: [...] for coordination of care (as documented) and qimg-uj-nwpp counseling of patient and/or family. Dictated By: Rosa Romo MD DD/ 1525 Signed By: <Electronically signed by MD Rosa Romo> 06/14/20 1610 [facility] Work Phone: 1(444) 697-346301-04-2021 Consult note Author Rosa Romo [facility] May 31, 2020 8:56pm Note Date/Time May 31, 2020 1: 29pm [facility] at [place] [id number] Hem/Onc Consult Note - OP Signed Patient: Gloria Allen MR#: [id number] : 1960 Acct:[id number] Age/Sex: 60 / F Type: REG RCR [...] address epigastric pain with you in followup. [facility] - Medical History Medical History: Medical History (Last Reviewed 05/31/20 @ 20:40 by Rosa Romo MD) delivery delivered - Surgical History Surgical History: Surgical History (Last Reviewed 05/31/20 @ 20:40 by Rosa Romo MD) [place] teeth removed - Family History Family History: [...] for coordination of care (as documented) and hvad-qr-ypib counseling of patient and/or family. Dictated By: Rosa Romo MD DD/ 1329 Signed By: <Electronically signed by MD Rosa Romo> 05/31/202055 [facility] Work Phone: Evaluation note* Diagnosis Onset Date Resolution Status Thrombocytosis acute Epigastric pain chronic Essential thrombocytosis chr onic Iron deficiency anemia chron ic [facility] Work Phone: Evaluation noteNo assessment information available [facility] Work Phone: Evaluation note* Diagnosis Onset Date Resolution Status Thrombocytosis acute Epigastric pain chronic Essential thrombocytosis chr onic Iron deficiency anemia resol chelly [facility] Work Phone: Progress note Author Rosa Romo [facility] December 24, 2021 4:39pm Note Date/Time December 23, 2021 2:49 pm [facility] [place] [facility] at [address] [address] Hem/Onc Follow Up Note - OP Signed Patient: Gloria Allen MR#: [id number] : 1960 Acct:[id number] Age/Sex: 61 / F Type: REG RCR [...] iron stores in one month (f/u with [employer]). If platelets < 450,000 at that time, [...] Negative for environmental allergies and food allergies. [facility] - History Attestation statement: The following information was validated with the patient. Source: Old Records Reviewed - Medical History Medical History: Medical History (Last Reviewed 12/24/21 @ 16:34 by Rosa Romo MD) delivery delivered - Surgical History Surgical History: Surgical History (Last Reviewed 12/24/21 @ 16:34 by Rosa Romo MD) [place] teeth removed - Family History Family History: [...] % (Auto) 63.2, Lymph % (Auto) 26.9, [place] % (Auto) 6.3, Eos % (Auto) 2.9, Baso % (Auto) 0.7, Neut # (Auto) 4.0, Lymph # (Auto) 1.7, [place] # (Auto) 0.4, Eos # (Auto) 0.2, [...] 4-6 weeks to review iron studies with [employer], 4 month f/u CBC and determine cytoreduction [...] for coordination of care (as documented) and glzk-ev-sdbv counseling of patient and/or family. Dictated By: Rosa Romo MD DD/ 1448 Signed By: <Electronically signed by MD Rosa Room> 12/24/21 1236 [facility] Work Phone: Progress note Author Rosa Romo [facility] March 24, 2022 4:15pm Note Date/Time March 24, 2022 1 1:23am [facility] [place] [address] Hem/Onc Follow Up Note - OP Signed Patient: Gloria Allen MR#: [id number] : 1960 Acct:[id number] Age/Sex: 61 / F Type: REG RCR [...] iron stores in one month (f/u with [employer]). If platelets < 450,000 at that time, [...] Negative for environmental allergies and food allergies. [facility] - History Attestation statement: The following information was validated with the patient. Source: Old Records Reviewed - Medical History Medical History: Medical History (Last Reviewed 03/24/22 @ 16:09 by Rosa Romo MD) delivery delivered - Surgical History Surgical History: Surgical History (Last Reviewed 03/24/22 @ 16:09 by Rosa Romo MD) [place] teeth removed - Family History Family History: [...] % (Auto) 66.6, Lymph % (Auto) 24.9, [place] % (Auto) 5.2, Eos % (Auto) 2.4, Baso % (Auto) 0.9, Neut # (Auto) 5.3, Lymph # (Auto) 2.0, [place] # (Auto) 0.4, Eos # (Auto) 0.2, [...] 4-6 weeks to review iron studies with [employer], 4 month f/u CBC and determine cytoreduction [...] for coordination of care (as documented) and zpmk-sq-ksyr counseling of patient and/or family. Dictated By: Rosa Romo MD DD/ 1122 Signed By: <Electronically signed by MD Rosa Romo> 03/24/22 161 [facility] Work Phone: Summary Purpose Family History [...] section and content) DATE CREATED AUTHOR 12/21/2017 [facility] DATE CREATED AUTHOR AUTHOR'S ORGANIZ ATION 05/16/2021 [facility] DATE CREATED AUTHOR AUTHOR'S ORGANIZ ATION 06/30/[address] [facility] DATE CREATED AUTHOR AUTHOR'S ORGANIZ ATION 06/06/2023 [facility] DATE CREATED AUTHOR AUTHOR'S ORGANIZ ATION [...] BE BASED ON THE PRIMARY CLINICAL RECORDS. [facility]. provides no warranty or guarantee of the accuracy or completeness of information in this document.
== END 2023-12-31 12:17 | disposition home or self-care (01) ==
LOC: VC 11:05
PROVIDERS: PCP Radiology Diagnostic Radiology; Visit Provider Radiology Diagnostic Radiology
DX: I83.813 Varicose veins of bilateral lower extremities with pain (principal)
CPT/HCPCS: 36471

== ENCOUNTER 2024-01-31 11:04 | Outpatient (OUT) | payer OTHER, SELFPAY ==
--- NOTE | 2024-01-30 16:01 | V.VEINS.HP ---
Vital Signs 01/31/24 11:46 BP 124/60 BP Location Left Brachial BP Position Sitting BP Cuff Size Adult BP Source Manual Cuff Respiration 16 Pulse 63 Pulse Source Monitor Pulse Oximetry (%) 98 Oxygen Delivery Method Room Air Comment The patient's blood pressure is elevated. Varicose Veins Patient in this day for sclerotherapy Osmany Morejon MD personally performed the services described in this documentation, as scribed by Donald Corral RN in my presence and it is both accurate and complete. Donald Morejon RN, am scribing for, and in the presence of, Dr. Osmany Warren and in the presence of the patient. thigh: bilateral, knee: bilateral, calf: bilateral, ankle: bilateral and cameron: bilateral aching and cramping 3 2 years Worsened in recent months: Yes standing and sitting bed rest, elevating extremities and compression stockings History of lower extremity trauma: No Superficial thrombophlebitis: No Family history of varicose veins: yes Has patient had previous lower extremity venous surgery: No Patient has previously received the following treatment(s) for lower extremity varicose veins: Reports none Does patient have a history of : yes Does patient intend to have future pregnancies: no Has patient had lower extremity venous scan with relux testing: Yes Support hose used: Yes Problems walking or doing physical activity: Yes How does it affect you: Symptoms have worsened in the past 2 years Do you walk much: Yes Do you stand much: Yes Medication compliance: good Large amounts of Vitamin K: No Review of Systems ROS Narrative Osmany Morejon MD personally performed the services described in this documentation, as scribed by Donald Corral RN in my presence and it is both accurate and complete. Donald Morejon RN, am scribing for, and in the presence of, Dr. Osmany Warren and in the presence of the patient. Status of ROS 10 or more systems reviewed and unremarkable except as noted in history and below [facility] Medical History (Updated 12/11/23 @ 08:04 by Evie Castillo) Phlebitis and thrombophlebitis of superficial vessels of right lower extremity ?I80.01 - Phlebitis and thrombophlebitis of superficial vessels of right lower extremity (ICD-10) Hypercoagulable state ?D68.59 - Other primary thrombophilia (ICD-10) Varicose veins of bilateral lower extremities with pain ?I83.813 - Varicose veins of bilateral lower extremities with pain (ICD-10) Surgical History (Updated 01/31/24 @ 11:47 by Donald Corral) S/P sclerotherapy of varicose veins ?Z98.890 - Other specified postprocedural states (ICD-10) ?Z86.79 - Personal history of other diseases of the circulatory system (ICD-10) H/O dilation and curettage ?Z98.890 - Other specified postprocedural states (ICD-10) Previous section ?Z98.891 - History of uterine scar from previous surgery (ICD-10) Family History (Updated 12/04/23 @ 08:18 by Evie Hollis RN) Aunt Varicose veins of bilateral lower extremities with pain Social History (Updated 12/04/23 @ 08:19 by Evie Hollis RN) Within the past year, how often did you have a drink containing alcohol: monthly or less Smoking status: Never smoker Non-prescribed substance use: denies use Meds Home Medications and Allergies Home Medications ?Medication ?Instructions ?Recorded ?Confirmed ?Type aspirin 81 mg tablet,delayed 81 mg PO DAILY 12/04/23 12/31/23 History release (Adult Aspirin Regimen) cholecalciferol (vitamin D3) 25 25 mcg PO DAILY 12/04/23 12/31/23 History mcg (1,000 unit) capsule Allergies Allergy/AdvReac Type Severity Reaction Status Date / Time No Known Drug Allergies Allergy Verified 09/14/23 15:20 Exam Narrative Exam Narrative: IOsmany MD personally performed the services described in this documentation, as scribed by Donald Corral RN in my presence and it is both accurate and complete. Donald Morejon RN, am scribing for, and in the presence of, Dr. Osmany Warren and in the presence of the patient. Constitutional Documenting provider has reviewed patient's vital signs: yes Common normals: oriented x3 Lymph Lymphatic: no lymphedema noted Cardio Common normals: regular rate Rate: regular rate Peripheral pulses: posterior tibial pulses present and dorsalis pedis pulses present Extremity Common normals: normal capillary refill Neuro Common normals: oriented x3 Assessment and Plan Assessment and Plan (1) Varicose veins of bilateral lower extremities with pain: Plan sclerotherapy right leg Osmany Morejon MD personally performed the services described in this documentation, as scribed by Donald Corral RN in my presence and it is both accurate and complete. I, Donald Corral RN, am scribing for, and in the presence of, Dr. Osmany Warren and in the presence of the patient. Procedures Procedure Instructions Procedures sclerotherapy: Risks and benefits of the procedure were discussed at length and informed written consent was obtained.? Time-out procedure was performed and the correct patient and procedure were confirmed.? Staff present during time-out: Donald Corral RN and Osmany Warren MD.? Patient prepped and procedure performed in usual sterile fashion. Injections performed by Dr. Warren and Donald Corral RN Sclerosing Agent:?? 4cc 0.5% Polidocanol Site Injected: left leg Number of Injections: 27 Anesthesia: Supercooled air The patient tolerated the procedure well without complication.? Hemostasis was obtained and thigh-high compression stocking was applied by patient.? Instructed patient to wear stocking for at least 96 hours and sleep with it and only remove for showering.? Will wear stocking for 2 weeks.? The patient verbalizes understanding and states they will comply.? Patient was given post-procedure instructions. Patient was discharged in good condition.? Scheduled to undergo additional injection sclerotherapy on 02/19/2024
--- NOTE | 2024-01-30 16:01 | W.VEIN ---
Discharge Plan Discharge Disposition: Home, Self-Care Outpatient Diagnostics: VC INJ Sclerosing SOLMULT Vein (Routine) Timeframe: 2 Weeks Facility: [facility] - Location: [facility] Ordered By: Osmany Warren Follow Up Appointments: 02/19/2024 Plan of Treatment: sclerotherapy right leg Patient Instructions: Polidocanol (By injection) Print Language: Taiwanese Discharge Date/Time: 01/31/24 11:52
--- NOTE | 2024-01-31 11:05 | VEIN_ITS ---
[address] [address] Patient Name: JONA ALLEN MRN: [id number] date: 1960 Sex: F Assigned Patient Location: Current Patient Location: Accession/Order Number: [id number] Exam Date: 01/31/2024 11:05 Report Date: 01/31/2024 13:04 At the request of: CASANDRA HAWTHORNE Procedure: VC INJ Sclerosing SOLMULT Vein EXAMINATION: VC INJ Sclerosing SOLMULT Vein HISTORY: I83.813 - Varicose veins of bilateral lower extremities w... The risks and benefits of the procedure were explained at length to the patient and informed written consent was obtained. The procedure was performed under sterile technique. The patient's leg was wrapped with Coban and postprocedural verbal and written instructions provided. Donald Corral RN was present and assisted. SCLEROSANT: 2mL 0.5% Polidocanol. VEIN(S) INJECTED: 27 veins in the left leg. VISUALIZATION: Ultrasound was not used to visualize the sclerosant. ANESTHESIA: Supercooled air. COMPLICATIONS: None. Electronically authenticated by: CASANDRA HAWTHORNE Date: 01/31/2024 13:04
--- OUTSIDE RECORDS SUMMARY | 2024-01-31 11:14 | XMS_ITS | CCD ---
Author Organization [facility] Care Team Providers Care Dynamometer Tester Engine Name Role Phone ZEUS LAMAS Unavailable Unavailable ZEUS LAMAS Unavailable Unavailable ZEUS LAMAS Unavailable Unavailable DO Zeus Lamas Primary Care Provider [phone] DO Zeus Lamas Attending Provider [phone] DO Zeus Lamas Referring Provider [phone] MD Rosa Romo Attending Provider [phone] DO Zeus Lamas Primary Care Provider DO Zeus Lamas Referring Provider [phone] MD Rosa Romo Attending Provider DO Zeus Lamas Primary Care Provider DO Mckenzie Perkins Attending Provider DO Zeus Lamas Primary Care Provider DO Zeus Lamas Attending Provider DO Zeus Lamas Referring Provider MD Rosa Romo Attending Provider [phone] DO Zeus Lamas Referring Provider [phone] MD Rosa Romo Attending Provider [phone] MCKENZIE PERKINS Attending Unavailable DO Zeus [...] (Bld) [#/Vol] 0.1 10*3/uL Normal 0.0-0.2 [facility] Comment on above: Result Comment: PERF ORMED BY: [place] [address] PATHOLOGIST PROTECTION SPECIALIST MIGUEL LARSEN M.D. Performed By: #### C BC, CMP #### [address] Basophils/100 WBC (Bld) 1.0 % Normal . [facility] Comment on above: Performed By: #### C BC, CMP #### [address] Eosinophils (Bld) [#/Vol] 0.3 10*3/uL Normal 0.0-0.45 [facility] Comment on above: Performed By: #### C BC, CMP #### [place] [address] Eosinophils/100 WBC (Bld) 4.8 % Normal . [facility] Comment on above: Performed By: #### C BC, CMP #### [address] Erythrocyte distribution width (RBC) [Ratio] 16.0 % High 11.9-15.3 [facility] Comment on above: Performed By: #### C BC, CMP #### [address] Hematocrit (Bld) [Volume fraction] 42.6 % Normal 34.0-46.4 [facility] Comment on above: Performed By: #### C BC, CMP #### [address] Hemoglobin (Bld) [Mass/Vol] 13.8 g/dL Normal 11.8-15.4 [facility] Comment on above: Performed By: #### C BC, CMP #### [address] Lymphocytes (Bld) [#/Vol] 2.3 10*3/uL Normal 1.00-4.8 [facility] Comment on above: Performed By: #### C BC, CMP #### [address] Lymphocytes/100 WBC (Bld) 32.7 % Normal . [facility] Comment on above: Performed By: #### C BC, CMP #### [address] MCH (RBC) [Entitic mass] 28.9 pg Normal 24.7-34.3 [facility] Comment on above: Performed By: #### C BC, CMP #### [address] MCV (RBC) [Entitic vol] 89.0 fL Normal 80-100 [facility] Comment on above: Performed By: #### C BC, CMP #### [address] Mean Corpuscular HGB Conc 32.5 g/dL Normal 32.0-35.0 [facility] Comment on above: Performed By: #### C BC, CMP #### [address] Monocytes (Bld) [#/Vol] 0.5 10*3/uL Normal 0.0-0.8 [facility] Comment on above: Performed By: #### C BC, CMP #### [address] Monocytes/100 WBC (Bld) 7.2 % Normal . [facility] Comment on above: Performed By: #### C BC, CMP #### [address] Neutrophils (Bld) [#/Vol] 3.9 10*3/uL Normal 1.8-7.7 [facility] Comment on above: Performed By: #### C BC, CMP #### [address] Neutrophils/100 WBC (Bld) 54.3 % Normal . [facility] Comment on above: Performed By: #### C BC, CMP #### [address] NRBC% 0.0 /100{WBC} Normal 0-0.5 [facility] Comment on above: Performed By: #### C BC, CMP #### [address] Platelet mean volume (Bld) [Entitic vol] 8.2 fL Normal 6.3-10.7 [facility] Comment on above: Performed By: #### C BC, CMP #### [address] Platelets (Bld) [#/Vol] 599 10*3/uL High 150-450 [facility] Comment on above: Performed By: #### C BC, CMP #### [address] RBC (Bld) [#/Vol] 4.78 10*6/uL Normal 3.60-5.00 [facility] Comment on above: Performed By: #### C BC, CMP #### [address] WBC (Bld) [#/Vol] 7.1 10*3/uL Normal 3.8-11.6 [facility] Comment on above: Performed By: #### C BC, CMP #### [address] Comprehensive Metabolic Pane douglas 09-12-2023 Albumin [Mass/Vol] 4.8 g/dL Normal 3.5-5.7 [facility] Comment on above: Performed By: #### C BC, CMP #### [address] Albumin/Globulin [Mass ratio] 2.2 {ratio} Normal [facility] Comment on above: Performed By: #### C BC, CMP #### [address] ALP [Catalytic activity/Vol] 56 U/L Normal 34-104 [facility] Comment on above: Performed By: #### C BC, CMP #### [address] ALT [Catalytic activity/Vol] 15 U/L Normal 7-52 [facility] Comment on above: Performed By: #### C BC, CMP #### [address] Anion gap [Moles/Vol] 9.3 mmol/L Normal 6.0-15.0 [facility] Comment on above: Performed By: #### C BC, CMP #### [address] AST [Catalytic activity/Vol] 21 U/L Normal 13-39 [facility] Comment on above: Performed By: #### C BC, CMP #### [address] Bilirubin [Mass/Vol] 1.2 mg/dL High 0.3-1.0 [facility] Comment on above: Performed By: #### C BC, CMP #### [address] Calcium [Mass/Vol] 10.3 mg/dL Normal 8.6-10.3 [facility] Comment on above: Performed By: #### C BC, CMP #### [address] Chloride [Moles/Vol] 103 mmol/L Normal 98-107 [facility] Comment on above: Performed By: #### C BC, CMP #### [address] CO2 [Moles/Vol] 32.3 mmol/L High 21.0-31.0 [facility] Comment on above: Performed By: #### C BC, CMP #### [address] Creatinine [Mass/Vol] 0.82 mg/dL Normal 0.60-1.20 [facility] Comment on above: Performed By: #### C BC, CMP #### [address] Creatinine Clr Calc Pharmacy 70.84 Normal [facility] Comment on above: Result Comment: PERF ORMED BY: [place] [address] PATHOLOGIST PROTECTION SPECIALIST MIGUEL LRASEN M.D. Performed By: #### C BC, CMP #### [address] GFR/1.73 sq M.predicted MDRD (S/P/Bld) [Vol rate/Area] mL/min/{1.73_m2} Normal [facility] Comment on above: Performed By: #### C BC, CMP #### [address] Globulin (S) [Mass/Vol] 2.2 g/dL Normal [facility] Comment on above: Performed By: #### C BC, CMP #### [address] [place] [address] [place] Glucose [Mass/Vol] 77 mg/dL Normal 70-100 [facility] Comment on above: Result Comment: [facility] Glucose Reference Range is dependent on time and content of last meal. Glucose of more than 200 mg/dL in a nonstressed, ambulatory subject supports the diagnosis of Diabetes Mellitus. ADA recommended reference range Performed By: #### C BC, CMP #### [facility] [address] Potassium [Moles/Vol] 4.6 mmol/L Normal 3.5-5.1 [facility] Comment on above: Performed By: #### C BC, CMP #### [facility] [address] Protein [Mass/Vol] 7.0 g/dL Normal 6.4-8.9 [facility] Comment on above: Performed By: #### C BC, CMP #### [address] Sodium [Moles/Vol] 140 mmol/L Normal 136-145 [facility] Comment on above: Performed By: #### C BC, CMP #### [address] Urea nitrogen [Mass/Vol] 18 mg/dL Normal 7-25 [facility] Comment on above: Performed By: #### C BC, CMP #### [address] MM screening mammo BI w/CADo n 09-11-2023 MM screening mammo BI w/CAD [facility] Main [place] [address] [place] [address] Mammography Report Signed Patient: Gloria Allen MR#: [id number] : 1960 Acct:[id number] Age/Sex: 63 / F ADM Date: 09/11/23 Loc: [place] Room: Type: [facility] [address] Attending Dr: Mckenzie Perkins DO Copies to: [...] Diana Matos M.D.09/11/2023 1:30 PM Dictation Location: [facility] Transcribed By: CHRISTOFER 09/11/23 1330 Dictated By: Diana Matos MD 09/11/23 1327 Signed By: 09/11/23 1330 Normal [facility] Alanine aminotransferase [En zymatic activity/volume] in Serum or PlasmaOrdered By: Rosa Romo on 03-19-2023 ALT [Catalytic activity/Vol] 13 U/L 7-52 [facility] Albumin [Mass/volume] in Ser um or Plasma by Bromocresol green (BCG) dye binding methoOrdered By: Rosa Romo on 03-19-2023 Albumin BCG dye [Mass/Vol] 4.5 g/dL 3.5-5.7 [facility] Alkaline phosphatase [Enzyma tic activity/volume] in Serum or PlasmaOrdered By: Rosa Romo on 03-19-2023 ALP [Catalytic activity/Vol] 56 U/L 34-104 [facility] Aspartate aminotransferase [ Enzymatic activity/volume] in Serum or PlasmaOrdered By: Rosa Romo on 03-19-2023 AST [Catalytic activity/Vol] 19 U/L 13-39 [facility] Basophils Auto (Bld) [#/Vol] Ordered By: Rosa Romo on 03-19-2023 Basophils (Bld) [#/Vol] 0.1 10*3/uL 0.0-0.2 [facility] Basophils/100 WBC Auto (Bld) Ordered By: Rosa Romo on 03-19-2023 Basophils/100 WBC (Bld) 0.9 % . [facility] Bilirubin.total [Mass/volume ] in Serum or PlasmaOrdered By: Rosa Romo on 03-19-2023 Bilirubin [Mass/Vol] 1.4 mg/dL 0.3-1.0 [facility] Comment on above: Samples from patient s who have taken Naproxen have shown spurious elevation in Total Bilirubin levels. A metabolite of Naproxen, O-desmethylnaproxen, has been shown to interfere with the Pop-Adeel method for measuring Total Bilirubin. Calcium [Mass/volume] in Ser um or PlasmaOrdered By: Rosa Romo on 03-19-2023 Calcium [Mass/Vol] 9.7 mg/dL 8.6-10.3 [facility] Carbon dioxide, total [Moles /volume] in Serum or PlasmaOrdered By: Rosa Romo on 03-19-2023 CO2 [Moles/Vol] 31.9 mmol/L 21.0-31.0 [facility] Chloride [Moles/volume] in S anne or PlasmaOrdered By: Rosa Romo on 03-19-2023 Chloride [Moles/Vol] 104 mmol/L 98-107 [facility] Cholesterol [Mass/volume] in Serum or PlasmaOrdered By: Zeus Lamas on 03-19-2023 Cholesterol [Mass/Vol] 179 mg/dL 140-200 [facility] Comment on above: Chol less than 200 m g/dl low riskChol 201-239 mg/dl borderline riskChol 240 mg/dl and greater high risk Cholesterol in LDL Calc [Mas s/Vol]Ordered By: Zeus Lamas on 03-19-2023 Cholesterol in LDL [Mass/Vol] 123 mg/dL 0-100 [facility] Comment on above: LDL ATP III CLASSIFI CATIONLDL less than 100 mg/dL OptimalLDL 100-129 mg/dL Near or above optimalLDL 130-159 mg/dL Borderline highLDL 160-189 mg/dL HighLDL greater than 189 mg/dL Very high Cholesterol in VLDL Calc [Ma ss/Vol]Ordered By: Zeus Lamas on 03-19-2023 Cholesterol in VLDL [Mass/Vol] 12 mg/dL [facility] Comprehensive Metabolic Pane douglas 03-19-2023 Albumin [Mass/Vol] 4.5 g/dL Normal 3.5-5.7 [facility] Comment on above: Order Comment: PT FA STED 12 HOURS Performed By: #### S CAN CBC, CMP #### [facility] [address] Albumin/Globulin [Mass ratio] 2.0 {ratio} Normal [facility] Comment on above: Order Comment: PT FA STED 12 HOURS Performed By: #### S CAN CBC, CMP #### [address] ALP [Catalytic activity/Vol] 56 U/L Normal 34-104 [facility] Comment on above: Order Comment: PT FA STED 12 HOURS Performed By: #### S CAN CBC, CMP #### [address] ALT [Catalytic activity/Vol] 13 U/L Normal 7-52 [facility] Comment on above: Order Comment: PT FA STED 12 HOURS Performed By: #### S CAN CBC, CMP #### [facility] [address] [place] [address] Anion gap [Moles/Vol] 9.3 mmol/L Normal 6.0-15.0 [facility] Comment on above: Order Comment: PT FA STED 12 HOURS Performed By: #### S CAN CBC, CMP #### [address] AST [Catalytic activity/Vol] 19 U/L Normal 13-39 [facility] Comment on above: Order Comment: PT FA STED 12 HOURS Performed By: #### S CAN CBC, CMP #### [address] Bilirubin [Mass/Vol] 1.4 mg/dL High 0.3-1.0 [facility] Comment on above: Order Comment: PT FA STED 12 HOURS Result Comment: Samp les from patients who have taken Naproxen have shown spurious elevation in Total Bilirubin levels. A metabolite of Naproxen, O-desmethylnaproxen, has been shown to interfere with the Jendrassik-Grof method for measuring Total Bilirubin. Performed By: #### S CAN CBC, CMP #### [address] Calcium [Mass/Vol] 9.7 mg/dL Normal 8.6-10.3 [facility] Comment on above: Order Comment: PT FA STED 12 HOURS Performed By: #### S CAN CBC, CMP #### [address] Chloride [Moles/Vol] 104 mmol/L Normal 98-107 [facility] Comment on above: Order Comment: PT FA STED 12 HOURS Performed By: #### S CAN CBC, CMP #### [place] [address] [place] CO2 [Moles/Vol] 31.9 mmol/L High 21.0-31.0 [facility] Comment on above: Order Comment: PT FA STED 12 HOURS Performed By: #### S CAN CBC, CMP #### [place] [address] [place] Creatinine [Mass/Vol] 0.77 mg/dL Normal 0.60-1.20 [facility] Comment on above: Order Comment: PT FA STED 12 HOURS Performed By: #### S CAN CBC, CMP #### [place] [address] [place] Creatinine Clr Calc Pharmacy 76.42 Normal [facility] Comment on above: Order Comment: PT FA STED 12 HOURS Result Comment: PERF ORMED BY: [place] [address] PATHOLOGIST PROTECTION SPECIALIST MIGUEL LARSEN M.D. Performed By: #### S CAN CBC, CMP #### [facility] [address] [place] [address] [place] GFR/1.73 sq M.predicted MDRD (S/P/Bld) [Vol rate/Area] mL/min/{1.73_m2} Normal [facility] Comment on above: Order Comment: PT FA STED 12 HOURS Performed By: #### S CAN CBC, CMP #### [facility] [address] [place] [address] [place] Globulin (S) [Mass/Vol] 2.2 g/dL Normal [facility] Comment on above: Order Comment: PT FA STED 12 HOURS Performed By: #### S CAN CBC, CMP #### [address] Glucose [Mass/Vol] 79 mg/dL Normal 70-100 [facility] Comment on above: Order Comment: PT FA STED 12 HOURS Result Comment: [place] Glucose Reference Range is dependent on time and content of last meal. Glucose of more than 200 mg/dL in a nonstressed, ambulatory subject supports the diagnosis of Diabetes Mellitus. ADA recommended reference range Performed By: #### S CAN CBC, CMP #### [place] [address] [place] Potassium [Moles/Vol] 4.2 mmol/L Normal 3.5-5.1 [facility] Comment on above: Order Comment: PT FA STED 12 HOURS Performed By: #### S CAN CBC, CMP #### [place] [address] [place] Protein [Mass/Vol] 6.7 g/dL Normal 6.4-8.9 [facility] Comment on above: Order Comment: PT FA STED 12 HOURS Performed By: #### S CAN CBC, CMP #### [place] [address] [place] Sodium [Moles/Vol] 141 mmol/L Normal 136-145 [facility] Comment on above: Order Comment: PT FA STED 12 HOURS Performed By: #### S CAN CBC, CMP #### [place] [address] [place] Urea nitrogen [Mass/Vol] 13 mg/dL Normal 7-25 [facility] Comment on above: Order Comment: PT FA STED 12 HOURS Performed By: #### S CAN CBC, CMP #### [facility] [address] Creatinine [Mass/volume] in Serum or PlasmaOrdered By: Rosa Romo on 03-19-2023 Creatinine [Mass/Vol] 0.77 mg/dL 0.60-1.20 [facility] Eosinophils Auto (Bld) [#/Vo l]Ordered By: Rosa Romo on 03-19-2023 Eosinophils (Bld) [#/Vol] 0.3 10*3/uL 0.0-0.45 [facility] Eosinophils/100 WBC Auto (Bl d)Ordered By: Rosa Romo on 03-19-2023 Eosinophils/100 WBC (Bld) 4.9 % . [facility] Erythrocyte distribution wid th Auto (RBC) [Ratio]Ordered By: Rosa Romo on 03-19-2023 Erythrocyte distribution width (RBC) [Ratio] 15.4 % 11.9-15.3 [facility] Globulin Calc (S) [Mass/Vol] Ordered By: Rosa Romo on 03-19-2023 Globulin (S) [Mass/Vol] 2.2 g/dL [facility] Glucose [Mass/volume] in Ser um or PlasmaOrdered By: Rosa Romo on 03-19-2023 Glucose [Mass/Vol] 79 mg/dL 70-100 [facility] Comment on above: ADA recommended refe rence rangeRandom Glucose Reference Range is dependent on time and content of last meal. Glucose of more than 200 mg/dL in a nonstressed, ambulatory subject supports the diagnosis of Diabetes Mellitus. Hematocrit Auto (Bld) [Volum e fraction]Ordered By: Rosa Romo on 03-19-2023 Hematocrit (Bld) [Volume fraction] 41.5 % 34.0-46.4 [facility] Hemoglobin [Mass/volume] in BloodOrdered By: Rosa Romo on 03-19-2023 Hemoglobin (Bld) [Mass/Vol] 13.7 g/dL 11.8-15.4 [facility] Leukocytes [#/volume] correc prema for nucleated erythrocytes in Blood by Automated counOrdered By: Rosa Romo on 03-19-2023 WBC corrected for nucl RBC Auto (Bld) [#/Vol] 6.5 10*3/uL 3.8-11.6 [facility] Lipid Panelon 03-19-2023 Cholesterol [Mass/Vol] 179 mg/dL Normal 140-200 [facility] Comment on above: Order Comment: PT FA STED 12 HOURS Result Comment: Chol less than 200 mg/dl low risk Chol 201-239 mg/dl borderline risk Chol 240 mg/dl and greater high risk Performed By: #### L IPID #### [facility] [address] [place] [id number] [place] Cholesterol in HDL [Mass/Vol] 44 mg/dL Normal 23-92 [facility] Comment on above: Order Comment: PT FA STED 12 HOURS Result Comment: HDL CHOL ATP-III CLASSIFICATION Cardiovascular Risk HDL > or equal to 60 mg/dL LOW HDL < 40 mg/dL HIGH Performed By: #### L IPID #### [facility] [address] [place] [address] [place] Cholesterol.total/Chol esterol in HDL [Mass ratio] 4.1 {ratio} Normal <5.0 [facility] Comment on above: Order Comment: PT FA STED 12 HOURS Result Comment: PERF ORMED BY: [place] [address] PATHOLOGIST PROTECTION SPECIALIST MIGUEL LARSEN M.D. Performed By: #### L IPID #### [facility] [address] [place] [id number] [place] LDL Cholesterol,Calculated 123 mg/dL High 0-100 [facility] Comment on above: Order Comment: PT FA STED 12 HOURS Result Comment: LDL ATP III CLASSIFICATION LDL less than 100 mg/dL Optimal LDL 100-129 mg/dL Near or above optimal LDL 130-159 mg/dL Borderline high LDL 160-189 mg/dL High LDL greater than 189 mg/dL Very high Performed By: #### L IPID #### [facility] [address] [place] [address] [place] Triglyceride w/Reflex 62 mg/dL Normal 0-149 [facility] Comment on above: Order Comment: PT FA STED 12 HOURS Result Comment: TRIG ATP III CLASSIFICATION TRIG less than 150 mg/dL Normal TRIG 150-199 mg/dL Borderline high TRIG 200-500 mg/dL High TRIG greater than 500 mg/dL Very high Standard traceable to the Center for Disease Conrtrol and Prevention (CDC) test method. Performed By: #### L IPID #### [facility] [address] VLDL CHOLESTEROL 12 mg/dL Normal [facility] Comment on above: Order Comment: PT FA STED 12 HOURS Performed By: #### L IPID #### [facility] [address] Lymphocytes Auto (Bld) [#/Vo l]Ordered By: Rosa Romo on 03-19-2023 Lymphocytes (Bld) [#/Vol] 2.1 10*3/uL 1.00-4.8 [facility] Lymphocytes/100 WBC Auto (Bl d)Ordered By: Rosa Romo on 03-19-2023 Lymphocytes/100 WBC (Bld) 32.8 % . [facility] MCH Auto (RBC) [Entitic mass ]Ordered By: Rosa Romo on 03-19-2023 MCH (RBC) [Entitic mass] 28.8 pg 24.7-34.3 [facility] MCHC Auto (RBC) [Mass/Vol]Or dered By: Rosa Romo on 03-19-2023 MCHC (RBC) [Mass/Vol] 33.1 g/dL 32.0-35.0 [facility] MCV Auto (RBC) [Entitic vol] Ordered By: Rosa Romo on 03-19-2023 MCV (RBC) [Entitic vol] 87.1 fL 80-100 [facility] Monocytes Auto (Bld) [#/Vol] Ordered By: Rosa Romo on 03-19-2023 Monocytes (Bld) [#/Vol] 0.5 10*3/uL 0.0-0.8 [facility] Monocytes/100 WBC Auto (Bld) Ordered By: Rosa Romo on 03-19-2023 Monocytes/100 WBC (Bld) 7.3 % . [facility] Neutrophils Auto (Bld) [#/Vo l]Ordered By: Rosa Romo on 03-19-2023 Neutrophils (Bld) [#/Vol] 3.5 10*3/uL 1.8-7.7 [facility] Neutrophils/100 WBC Auto (Bl d)Ordered By: Rosa Romo on 03-19-2023 Neutrophils/100 WBC (Bld) 54.1 % . [facility] No Panel InformationOrdered By: Rosa Romo on 03-19-2023 Estimated GFR (CKD-EPI) > 60.0 mL/Min [facility] Creatinine Clearance (Chem 76.42 [facility] Nucleated erythrocytes [Pres ence] in Blood by Automated countOrdered By: Rosa Romo on 03-19-2023 Nucleated RBC Auto Ql (Bld) 0.0 /100{WBC} 0-0.5 [facility] Platelet adequacy [Presence] in Blood by Light microscopyOrdered By: Rosa Romo on 03-19-2023 Platelets LM Ql (Bld) Increased Normal [facility] Platelet mean volume Auto (B ld) [Entitic vol]Ordered By: Rosa Romo on 03-19-2023 Platelet mean volume (Bld) [Entitic vol] 8.5 fL 6.3-10.7 [facility] Platelet morphology finding [Identifier] in BloodOrdered By: Rosa Romo on 03-19-2023 Platelet morphology finding Nom (Bld) Normal Normal [facility] Platelets Auto (Bld) [#/Vol] Ordered By: Rosa Romo on 03-19-2023 Platelets (Bld) [#/Vol] 537 10*3/uL 150-450 [facility] Potassium [Moles/volume] in Serum or PlasmaOrdered By: Rosa Romo on 03-19-2023 Potassium [Moles/Vol] 4.2 mmol/L 3.5-5.1 [facility] Protein [Mass/volume] in Ser um or PlasmaOrdered By: Rosa Romo on 03-19-2023 Protein [Mass/Vol] 6.7 g/dL 6.4-8.9 [facility] RBC Auto (Bld) [#/Vol]Ordere d By: Rosa Romo on 03-19-2023 RBC (Bld) [#/Vol] 4.76 10*6/uL 3.60-5.00 [facility] RBC morphologyOrdered By: Rosie Romo on 03-19-2023 RBC morphology finding Nom (Bld) Normal Normal [facility] Scan and CBCon 03-19-2023 Basophils (Bld) [#/Vol] 0.1 10*3/uL Normal 0.0-0.2 [facility] Comment on above: Performed By: #### S CAN CBC, CMP #### [facility] [address] [place] [address] [place] Basophils/100 WBC (Bld) 0.9 % Normal . [facility] Comment on above: Performed By: #### S CAN CBC, CMP #### [facility] [address] [place] [address] [place] Eosinophils (Bld) [#/Vol] 0.3 10*3/uL Normal 0.0-0.45 [facility] Comment on above: Performed By: #### S CAN CBC, CMP #### [facility] [address] [place] [id number] [place] Eosinophils/100 WBC (Bld) 4.9 % Normal . [facility] Comment on above: Performed By: #### S CAN CBC, CMP #### [facility] [address] Erythrocyte distribution width (RBC) [Ratio] 15.4 % High 11.9-15.3 [facility] Comment on above: Performed By: #### S CAN CBC, CMP #### [place] [facility] [address] [id number] [place] Hematocrit (Bld) [Volume fraction] 41.5 % Normal 34.0-46.4 [facility] Comment on above: Performed By: #### S CAN CBC, CMP #### [facility] [address] [place] [address] [place] Hemoglobin (Bld) [Mass/Vol] 13.7 g/dL Normal 11.8-15.4 [facility] Comment on above: Performed By: #### S CAN CBC, CMP #### [facility] [address] Lymphocytes (Bld) [#/Vol] 2.1 10*3/uL Normal 1.00-4.8 [facility] Comment on above: Performed By: #### S CAN CBC, CMP #### [address] Lymphocytes/100 WBC (Bld) 32.8 % Normal . [facility] Comment on above: Performed By: #### S CAN CBC, CMP #### [address] MCH (RBC) [Entitic mass] 28.8 pg Normal 24.7-34.3 [facility] Comment on above: Performed By: #### S CAN CBC, CMP #### [address] MCV (RBC) [Entitic vol] 87.1 fL Normal 80-100 [facility] Comment on above: Performed By: #### S CAN CBC, CMP #### [address] Mean Corpuscular HGB Conc 33.1 g/dL Normal 32.0-35.0 [facility] Comment on above: Performed By: #### S CAN CBC, CMP #### [address] Monocytes (Bld) [#/Vol] 0.5 10*3/uL Normal 0.0-0.8 [facility] Comment on above: Performed By: #### S CAN CBC, CMP #### [place] [address] [place] Monocytes/100 WBC (Bld) 7.3 % Normal . [facility] Comment on above: Performed By: #### S CAN CBC, CMP #### [address] Neutrophils (Bld) [#/Vol] 3.5 10*3/uL Normal 1.8-7.7 [facility] Comment on above: Performed By: #### S CAN CBC, CMP #### [address] Neutrophils/100 WBC (Bld) 54.1 % Normal . [facility] Comment on above: Performed By: #### S CAN CBC, CMP #### [address] NRBC% 0.0 /100{WBC} Normal 0-0.5 [facility] Comment on above: Performed By: #### S CAN CBC, CMP #### [address] Platelet Estimate Increased Normal Normal [facility] Comment on above: Performed By: #### S CAN CBC, CMP #### [address] Platelet mean volume (Bld) [Entitic vol] 8.5 fL Normal 6.3-10.7 [facility] Comment on above: Performed By: #### S CAN CBC, CMP #### [address] Platelet Morphology Normal Normal Normal [facility] Comment on above: Result Comment: PERF ORMED BY: [place] [address] PATHOLOGIST PROTECTION SPECIALIST MIGUEL LARSEN M.D. Performed By: #### S CAN CBC, CMP #### [address] Platelets (Bld) [#/Vol] 537 10*3/uL High 150-450 [facility] Comment on above: Performed By: #### S CAN CBC, CMP #### [address] RBC (Bld) [#/Vol] 4.76 10*6/uL Normal 3.60-5.00 [facility] Comment on above: Performed By: #### S CAN CBC, CMP #### [address] RBC morphology finding Nom (Bld) Normal Normal Normal [facility] Comment on above: Performed By: #### S CAN CBC, CMP #### [facility] [address] WBC (Bld) [#/Vol] 6.5 10*3/uL Normal 3.8-11.6 [facility] Comment on above: Performed By: #### S CAN CBC, CMP #### [facility] [address] Serum or plasma albumin/glob ulin mass ratioOrdered By: Rosa Romo on 03-19-2023 Albumin/Globulin [Mass ratio] 2.0 {ratio} [facility] Serum or plasma anion gap de terminationOrdered By: Rosa Romo on 03-19-2023 Anion gap [Moles/Vol] 9.3 mmol/L 6.0-15.0 [facility] Serum or plasma high density lipoprotein (HDL) cholesterol measurementOrdered By: Zeus Lamas on 03-19-2023 Cholesterol in HDL [Mass/Vol] 44 mg/dL [facility] Comment on above: HDL CHOL ATP-III CLA SSIFICATION Cardiovascular RiskHDL > or equal to 60 mg/dL LOWHDL < 40 mg/dL HIGH Serum or plasma total choles terol/high density lipoprotein (HDL) cholesterol mass ratOrdered By: Zeus Lamas on 03-19-2023 Cholesterol.total/Chol esterol in HDL [Mass ratio] 4.1 {ratio} <5.0 [facility] Sodium [Moles/volume] in Ser um or PlasmaOrdered By: Rosa Romo on 03-19-2023 Sodium [Moles/Vol] 141 mmol/L 136-145 [facility] Triglyceride [Mass/volume] i n Serum or PlasmaOrdered By: Zeus Lamas on 03-19-2023 Triglyceride [Mass/Vol] 62 mg/dL 0-149 [facility] Comment on above: TRIG ATP III CLASSIF ICATIONTRIG less than 150 mg/dL NormalTRIG 150-199 mg/dL Borderline highTRIG 200-500 mg/dL High TRIG greater than 500 mg/dL Very highStandard traceable to the Center for Disease Conrtrol and Prevention (CDC) test method. Urea nitrogen [Mass/volume] in Serum or PlasmaOrdered By: Rosa Romo on 03-19-2023 Urea nitrogen [Mass/Vol] 13 mg/dL 7 [facility] WBC Auto (Bld) [#/Vol]Ordere d By: Rosa Romo on 03-19-2023 WBC (Bld) [#/Vol] 6.5 10*3/uL 3.8-11.6 [facility] Complete Blood Count Auto Di ffon 09-22-2022 Basophils (Bld) [#/Vol] 0.1 10*3/uL Normal 0.0-0.2 [facility] Comment on above: Result Comment: PERF ORMED BY: [place] [address] PATHOLOGIST PROTECTION SPECIALIST MIGUEL LARSEN M.D. Performed By: #### C BC #### [address] Basophils/100 WBC (Bld) 0.7 % Normal . [facility] Comment on above: Performed By: #### C BC #### [address] Eosinophils (Bld) [#/Vol] 0.3 10*3/uL Normal 0.0-0.45 [facility] Comment on above: Performed By: #### C BC #### [address] Eosinophils/100 WBC (Bld) 4.4 % Normal . [facility] Comment on above: Performed By: #### C BC #### [address] Erythrocyte distribution width (RBC) [Ratio] 14.7 % Normal 11.9-15.3 [facility] Comment on above: Performed By: #### C BC #### [address] Hematocrit (Bld) [Volume fraction] 42.0 % Normal 34.0-46.4 [facility] Comment on above: Performed By: #### C BC #### [address] Hemoglobin (Bld) [Mass/Vol] 13.7 g/dL Normal 11.8-15.4 [facility] Comment on above: Performed By: #### C BC #### [address] Lymphocytes (Bld) [#/Vol] 1.8 10*3/uL Normal 1.00-4.8 [facility] Comment on above: Performed By: #### C BC #### [address] Lymphocytes/100 WBC (Bld) 22.7 % Normal . [facility] Comment on above: Performed By: #### C BC #### [address] MCH (RBC) [Entitic mass] 28.8 pg Normal 24.7-34.3 [facility] Comment on above: Performed By: #### C BC #### [address] MCV (RBC) [Entitic vol] 88.4 fL Normal 80-100 [facility] Comment on above: Performed By: #### C BC #### [address] Mean Corpuscular HGB Conc 32.6 g/dL Normal 32.0-35.0 [facility] Comment on above: Performed By: #### C BC #### [address] Monocytes (Bld) [#/Vol] 0.5 10*3/uL Normal 0.0-0.8 [facility] Comment on above: Performed By: #### C BC #### [address] Monocytes/100 WBC (Bld) 6.5 % Normal . [facility] Comment on above: Performed By: #### C BC #### [address] Neutrophils (Bld) [#/Vol] 5.1 10*3/uL Normal 1.8-7.7 [facility] Comment on above: Performed By: #### C BC #### [facility] [address] Neutrophils/100 WBC (Bld) 65.7 % Normal . [facility] Comment on above: Performed By: #### C BC #### [facility] [address] NRBC% 0.1 /100{WBC} Normal 0-0.5 [facility] Comment on above: Performed By: #### C BC #### [address] Platelet mean volume (Bld) [Entitic vol] 8.5 fL Normal 6.3-10.7 [facility] Comment on above: Performed By: #### C BC #### [address] Platelets (Bld) [#/Vol] 551 10*3/uL High 150-450 [facility] Comment on above: Performed By: #### C BC #### [address] RBC (Bld) [#/Vol] 4.75 10*6/uL Normal 3.60-5.00 [facility] Comment on above: Performed By: #### C BC #### [address] WBC (Bld) [#/Vol] 7.7 10*3/uL Normal 3.8-11.6 [facility] Comment on above: Performed By: #### C BC #### [place] [address] [place] Basophils Auto (Bld) [#/Vol] Ordered By: Rosa Romo on 03-22-2022 Basophils (Bld) [#/Vol] 0.1 10*3/uL 0.0-0.2 [facility] Basophils/100 WBC Auto (Bld) Ordered By: Rosa Romo on 03-22-2022 Basophils/100 WBC (Bld) 0.9 % . [facility] Body fluid albumin measureme nt (mass/volume)Ordered By: Rosa Romo on 03-22-2022 Albumin (Body fld) [Mass/Vol] 4.3 g/dL 3.2-5.5 [facility] Creatinine and Glomerular fi ltration rate.predicted panel (S/P/Bld)Ordered By: Rosa Romo on 03-22-2022 Creatinine [Mass/Vol] 0.79 mg/dL 0.44-1.03 [facility] Eosinophils Auto (Bld) [#/Vo l]Ordered By: Rosa Romo on 03-22-2022 Eosinophils (Bld) [#/Vol] 0.2 10*3/uL 0.0-0.45 [facility] Eosinophils/100 WBC Auto (Bl d)Ordered By: Rosa Romo on 03-22-2022 Eosinophils/100 WBC (Bld) 2.4 % . [facility] Erythrocyte distribution wid th Auto (RBC) [Ratio]Ordered By: Rosa Romo on 03-22-2022 Erythrocyte distribution width (RBC) [Ratio] 14.7 % 11.9-15.3 [facility] Estimated glomerular filtrat ion rate (GFR) non- AmericanOrdered By: Rosa Romo on 03-22-2022 GFR/1.73 sq M.predicted among non-blacks MDRD (S/P/Bld) [Vol rate/Area] > 60 mL/Min [facility] Globulin Calc (S) [Mass/Vol] Ordered By: Rosa Romo on 03-22-2022 Globulin (S) [Mass/Vol] 2.2 g/dL [facility] Hematocrit Auto (Bld) [Volum e fraction]Ordered By: Rosa Romo on 03-22-2022 Hematocrit (Bld) [Volume fraction] 41.9 % 34.0-46.4 [facility] Hemoglobin [Mass/volume] in BloodOrdered By: Rosa Romo on 03-22-2022 Hemoglobin (Bld) [Mass/Vol] 13.6 g/dL 11.8-15.4 [facility] Laboratory - Hematology and Cell countsOrdered By: Rosa Romo on 03-22-2022 Nucleated RBC/100 WBC (Bld) [Ratio] 0.0 % 0-0.5 [facility] Leukocytes [#/volume] in Blo od by Automated countOrdered By: Rosa Romo on 03-22-2022 WBC (Bld) [#/Vol] 8.0 10*3/uL 4.5-11.0 [facility] Lymphocytes Auto (Bld) [#/Vo l]Ordered By: Rosa Romo on 03-22-2022 Lymphocytes (Bld) [#/Vol] 2.0 10*3/uL 1.00-4.8 [facility] Lymphocytes/100 WBC Auto (Bl d)Ordered By: Rosa Romo on 03-22-2022 Lymphocytes/100 WBC (Bld) 24.9 % . [facility] MCH Auto (RBC) [Entitic mass ]Ordered By: Rosa Romo on 03-22-2022 MCH (RBC) [Entitic mass] 29.4 pg 24.7-34.3 [facility] MCHC Auto (RBC) [Mass/Vol]Or dered By: Rosa Romo on 03-22-2022 MCHC (RBC) [Mass/Vol] 32.5 g/dL 32.0-35.0 [facility] MCV Auto (RBC) [Entitic vol] Ordered By: Rosa Romo on 03-22-2022 MCV (RBC) [Entitic vol] 90.4 fL 80-100 [facility] Monocytes Auto (Bld) [#/Vol] Ordered By: Rosa Romo on 03-22-2022 Monocytes (Bld) [#/Vol] 0.4 10*3/uL 0.0-0.8 [facility] Monocytes/100 WBC Auto (Bld) Ordered By: Rosa Romo on 03-22-2022 Monocytes/100 WBC (Bld) 5.2 % . [facility] Neutrophils Auto (Bld) [#/Vo l]Ordered By: Rosa Romo on 03-22-2022 Neutrophils (Bld) [#/Vol] 5.3 10*3/uL 1.8-7.7 [facility] Neutrophils/100 WBC Auto (Bl d)Ordered By: Rosa Romo on 03-22-2022 Neutrophils/100 WBC (Bld) 66.6 % . [facility] No Panel InformationOrdered By: Rosa Romo on 03-22-2022 Estimated GFR () > 60 mL/Min [facility] Comment on above: GFR estimated refere nce range: According to KDOQI guidelines, <60 ml/min/1.73m2 is sufficient to diagnose a patient with chronic kidney disease. Pharmacy Creatinine Clearance (Chem 75.44 [facility] Platelet mean volume Auto (B ld) [Entitic vol]Ordered By: Rosa Romo on 03-22-2022 Platelet mean volume (Bld) [Entitic vol] 8.3 fL 6.3-10.7 [facility] Platelets Auto (Bld) [#/Vol] Ordered By: Rosa Romo on 03-22-2022 Platelets (Bld) [#/Vol] 506 10*3/uL 150-450 [facility] Protein [Mass/volume] in Ser um or PlasmaOrdered By: Rosa Romo on 03-22-2022 Protein [Mass/Vol] 6.5 g/dL 6.1-7.9 [facility] RBC Auto (Bld) [#/Vol]Ordere d By: Rosa Romo on 03-22-2022 RBC (Bld) [#/Vol] 4.63 10*6/uL 3.60-5.00 [facility] Serum or plasma alanine black otransferase measurement without P-5'-P (enzymatic activiOrdered By: Rosa Romo on 03-22-2022 ALT No additional P-5'-P [Catalytic activity/Vol] 17 U/L 10-60 [facility] Serum or plasma albumin/glob ulin mass ratioOrdered By: Rosa Romo on 03-22-2022 Albumin/Globulin [Mass ratio] 2.0 {ratio} [facility] Serum or plasma alkaline laurie sphatase measurement (enzymatic activity/volume)Ordered By: Rosa Romo on 03-22-2022 ALP [Catalytic activity/Vol] 56 U/L 32-92 [facility] Serum or plasma anion gap de terminationOrdered By: Rosa Romo on 03-22-2022 Anion gap [Moles/Vol] 11.6 mmol/L 6.0-15.0 [facility] Serum or plasma aspartate am inotransferase measurement (enzymatic activity/volume)Ordered By: Rosa Romo on 03-22-2022 AST [Catalytic activity/Vol] 22 U/L 10-42 [facility] Serum or plasma calcium los urement (mass/volume)Ordered By: Rosa Romo on 03-22-2022 Calcium [Mass/Vol] 9.7 mg/dL 8.2-10.2 [facility] Serum or plasma chloride theresa surement (moles/volume)Ordered By: Rosa Romo on 03-22-2022 Chloride [Moles/Vol] 100 mmol/L 95-114 [facility] Serum or plasma glucose los urement (mass/volume)Ordered By: Rosa Romo on 03-22-2022 Glucose [Mass/Vol] 123 mg/dL 70-100 [facility] Comment on above: ADA recommended refe rence rangeRandom Glucose Reference Range is dependent on time and content of last meal. Glucose of more than 200 mg/dL in a nonstressed, ambulatory subject supports the diagnosis of Diabetes Mellitus. Serum or plasma potassium me asurement (moles/volume)Ordered By: Rosa Room on 03-22-2022 Potassium [Moles/Vol] 4.4 mmol/L 3.5-5.1 [facility] Serum or plasma sodium measu rement (moles/volume)Ordered By: Rosa Romo on 03-22-2022 Sodium [Moles/Vol] 137 mmol/L 136-146 [facility] Serum or plasma total biliru bin measurement (mass/volume)Ordered By: Rosa Romo on 03-22-2022 Bilirubin [Mass/Vol] 1.8 mg/dL 0.3-1.2 [facility] Comment on above: Samples from patient s who have taken Naproxen have shown spurious elevation in Total Bilirubin levels. A metabolite of Naproxen, O-desmethylnaproxen, has been shown to interfere with the Pop-Adeel method for measuring Total Bilirubin. Serum or plasma total carbon dioxide measurement (moles/volume)Ordered By: Rosa Romo on 03-22-2022 CO2 [Moles/Vol] 29.8 mmol/L 22.0-30.0 [facility] Serum or plasma urea nitroge n measurement (mass/volume)Ordered By: Rosa Romo on 03-22-2022 Urea nitrogen [Mass/Vol] 12 mg/dL 9- [facility] Basophils Auto (Bld) [#/Vol] Ordered By: Rosa Romo on 12-20-2021 Basophils (Bld) [#/Vol] 0.0 10*3/uL 0.0-0.2 [facility] Basophils/100 WBC Auto (Bld) Ordered By: Rosa Romo on 12-20-2021 Basophils/100 WBC (Bld) 0.7 % . [facility] Blood hemoglobin measurement (mass/volume)Ordered By: Rosa Romo on 12-20-2021 Hemoglobin (Bld) [Mass/Vol] 13.6 g/dL 11.8-15.4 [facility] Blood leukocytes automated c ount (number/volume)Ordered By: Rosa Romo on 12-20-2021 WBC (Bld) [#/Vol] 6.3 10*3/uL 4.5-11.0 [facility] Body fluid albumin measureme nt (mass/volume)Ordered By: Rosa Romo on 12-20-2021 Albumin (Body fld) [Mass/Vol] 4.7 g/dL 3.2-5.[address] [facility] [address] biopsyOrdered By: Rosa Galindo se on 12-20-2021 Transferrin [Mass/Vol] 258 mg/dL 180-380 [facility] Cholesterol [Mass/volume] in Serum or PlasmaOrdered By: Zeus Lamas on 12-20-2021 Cholesterol [Mass/Vol] 175 mg/dL 140-200 [facility] Comment on above: Chol less than 200 m g/dl low risk Chol 201-239 mg/dl borderline risk Chol 240 mg/dl and greater high risk Cholesterol in LDL Calc [Mas s/Vol]Ordered By: Zeus Lamas on 12-20-2021 Cholesterol in LDL [Mass/Vol] 119 mg/dL 0-100 [facility] Comment on above: LDL ATP III CLASSIFI CATION LDL less than 100 mg/dL Optimal LDL 100-129 mg/dL Near or above optimal LDL 130-159 mg/dL Borderline high LDL 160-189 mg/dL High LDL greater than 189 mg/dL Very high Cholesterol in VLDL Calc [Ma ss/Vol]Ordered By: Zeus Lamas on 12-20-2021 Cholesterol in VLDL [Mass/Vol] 11 mg/dL [facility] Creatinine and Glomerular fi ltration rate.predicted panel (S/P/Bld)Ordered By: Rosa Romo on 12-20-2021 Creatinine [Mass/Vol] 0.78 mg/dL 0.44-1.03 [facility] Eosinophils Auto (Bld) [#/Vo l]Ordered By: Rosa Romo on 12-20-2021 Eosinophils (Bld) [#/Vol] 0.2 10*3/uL 0.0-0.45 [facility] Eosinophils/100 WBC Auto (Bl d)Ordered By: Rosa Romo on 12-20-2021 Eosinophils/100 WBC (Bld) 2.9 % . [facility] Erythrocyte distribution wid th Auto (RBC) [Ratio]Ordered By: Rosa Romo on 12-20-2021 Erythrocyte distribution width (RBC) [Ratio] 15.6 % 11.9-15.3 [facility] Estimated glomerular filtrat ion rate (GFR) non- AmericanOrdered By: Rosa Romo on 12-20-2021 GFR/1.73 sq M.predicted among non-blacks MDRD (S/P/Bld) [Vol rate/Area] > 60 mL/Min [facility] Ferritin [Mass/volume] in Se rum or PlasmaOrdered By: Rosa Romo on 12-20-2021 Ferritin [Mass/Vol] 278.9 ng/mL 11-306.8 [facility] Globulin Calc (S) [Mass/Vol] Ordered By: Rosa Romo on 12-20-2021 Globulin (S) [Mass/Vol] 2.2 g/dL [facility] Hematocrit Auto (Bld) [Volum e fraction]Ordered By: Rosa Romo on 12-20-2021 Hematocrit (Bld) [Volume fraction] 41.2 % 34.0-46.4 [facility] Iron [Mass/volume] in Serum or PlasmaOrdered By: Rosa Romo on 12-20-2021 Iron [Mass/Vol] 90 ug/dL 40-150 [facility] Iron binding capacity [Mass/ volume] in Serum or PlasmaOrdered By: Rosa Romo on 12-20-2021 Iron binding capacity [Mass/Vol] 361 ug/dL 255-450 [facility] Iron saturation [Mass Fracti on] in Serum or PlasmaOrdered By: Rosa Romo on 12-20-2021 Iron saturation [Mass fraction] 24.0 % 20-50 [facility] Laboratory - Hematology and Cell countsOrdered By: Rosa Romo on 12-20-2021 Nucleated RBC/100 WBC (Bld) [Ratio] 0.0 % 0-0.5 [facility] Lymphocytes Auto (Bld) [#/Vo l]Ordered By: Rosa Romo on 12-20-2021 Lymphocytes (Bld) [#/Vol] 1.7 10*3/uL 1.00-4.8 [facility] Lymphocytes/100 WBC Auto (Bl d)Ordered By: Rosa Romo on 12-20-2021 Lymphocytes/100 WBC (Bld) 26.9 % . [facility] MCH Auto (RBC) [Entitic mass ]Ordered By: Rosa Romo on 12-20-2021 MCH (RBC) [Entitic mass] 29.8 pg 24.7-34.3 [facility] MCHC Auto (RBC) [Mass/Vol]Or dered By: Rosa Romo on 12-20-2021 MCHC (RBC) [Mass/Vol] 33.1 g/dL 32.0-35.0 [facility] MCV Auto (RBC) [Entitic vol] Ordered By: Rosa Romo on 12-20-2021 MCV (RBC) [Entitic vol] 90.0 fL 80-100 [facility] Monocytes Auto (Bld) [#/Vol] Ordered By: Rosa Romo on 12-20-2021 Monocytes (Bld) [#/Vol] 0.4 10*3/uL 0.0-0.8 [facility] Monocytes/100 WBC Auto (Bld) Ordered By: Rosa Romo on 12-20-2021 Monocytes/100 WBC (Bld) 6.3 % . [facility] Neutrophils Auto (Bld) [#/Vo l]Ordered By: Rosa Romo on 12-20-2021 Neutrophils (Bld) [#/Vol] 4.0 10*3/uL 1.8-7.7 [facility] Neutrophils/100 WBC Auto (Bl d)Ordered By: Rosa Romo on 12-20-2021 Neutrophils/100 WBC (Bld) 63.2 % . [facility] No Panel InformationOrdered By: Rosa Romo on 12-20-2021 Estimated GFR () > 60 mL/Min [facility] Comment on above: GFR estimated refere nce range: According to KDOQI guidelines, <60 ml/min/1.73m2 is sufficient to diagnose a patient with chronic kidney disease. Pharmacy Creatinine Clearance (Chem 76.40 [facility] Platelet mean volume Auto (B ld) [Entitic vol]Ordered By: Rosa Romo on 12-20-2021 Platelet mean volume (Bld) [Entitic vol] 8.5 fL 6.3-10.7 [facility] Platelets Auto (Bld) [#/Vol] Ordered By: Rosa Romo on 12-20-2021 Platelets (Bld) [#/Vol] 527 10*3/uL 150-450 [facility] Protein [Mass/volume] in Ser um or PlasmaOrdered By: Rosa Romo on 12-20-2021 Protein [Mass/Vol] 6.9 g/dL 6.1-7.9 [facility] RBC Auto (Bld) [#/Vol]Ordere d By: Rosa Romo on 12-20-2021 RBC (Bld) [#/Vol] 4.58 10*6/uL 3.60-5.00 [facility] Serum or plasma alanine black otransferase measurement without P-5'-P (enzymatic activiOrdered By: Rosa Romo on 12-20-2021 ALT No additional P-5'-P [Catalytic activity/Vol] 22 U/L 10-60 [facility] Serum or plasma albumin/glob ulin mass ratioOrdered By: Rosa Romo on 12-20-2021 Albumin/Globulin [Mass ratio] 2.1 {ratio} [facility] Serum or plasma alkaline laurie sphatase measurement (enzymatic activity/volume)Ordered By: Rosa Romo on 12-20-2021 ALP [Catalytic activity/Vol] 52 U/L 32-92 [facility] Serum or plasma aspartate am inotransferase measurement (enzymatic activity/volume)Ordered By: Rosa Romo on 12-20-2021 AST [Catalytic activity/Vol] 24 U/L 10-42 [facility] Serum or plasma calcium los urement (mass/volume)Ordered By: Rosa Romo on 12-20-2021 Calcium [Mass/Vol] 9.9 mg/dL 8.2-10.2 [facility] Serum or plasma chloride theresa surement (moles/volume)Ordered By: Rosa Romo on 12-20-2021 Chloride [Moles/Vol] 100 mmol/L 95-114 [facility] Serum or plasma glucose los urement (mass/volume)Ordered By: Rosa Romo on 12-20-2021 Glucose [Mass/Vol] 89 mg/dL 70-100 [facility] Comment on above: ADA recommended refe rence range Random Glucose Reference Range is dependent on time and content of last meal. Glucose of more than 200 mg/dL in a nonstressed, ambulatory subject supports the diagnosis of Diabetes Mellitus. Serum or plasma high density lipoprotein (HDL) cholesterol measurementOrdered By: Zeus Lamas on 12-20-2021 Cholesterol in HDL [Mass/Vol] 45 mg/dL 35-85 [facility] Comment on above: HDL CHOL ATP-III CLA SSIFICATION Cardiovascular Risk HDL > or equal to 60 mg/dL LOW HDL < 40 mg/dL HIGH Serum or plasma potassium me asurement (moles/volume)Ordered By: Rosa Romo on 12-20-2021 Potassium [Moles/Vol] 4.0 mmol/L 3.5-5.1 [facility] Serum or plasma sodium measu rement (moles/volume)Ordered By: Rosa Romo on 12-20-2021 Sodium [Moles/Vol] 138 mmol/L 136-146 [facility] Serum or plasma total biliru bin measurement (mass/volume)Ordered By: Rosa Romo on 12-20-2021 Bilirubin [Mass/Vol] 1.4 mg/dL 0.3-1.2 [facility] Comment on above: Samples from patient s who have taken Naproxen have shown spurious elevation in Total Bilirubin levels. A metabolite of Naproxen, O-desmethylnaproxen, has been shown to interfere with the Jenjesenia-Adeel method for measuring Total Bilirubin. Serum or plasma total carbon dioxide measurement (moles/volume)Ordered By: Rosa Romo on 12-20-2021 CO2 [Moles/Vol] 30.2 mmol/L 22.0-30.0 [facility] Serum or plasma total choles terol/high density lipoprotein (HDL) cholesterol mass ratOrdered By: Zeus Lamas on 12-20-2021 Cholesterol.total/Chol esterol in HDL [Mass ratio] 3.9 {ratio} <5.0 [facility] Serum or plasma urea nitroge n measurement (mass/volume)Ordered By: Rosa Romo on 12-20-2021 Urea nitrogen [Mass/Vol] 9 mg/dL 9-23 [facility] Triglyceride [Mass/volume] i n Serum or PlasmaOrdered By: Zeus Lamas on 12-20-2021 Triglyceride [Mass/Vol] 57 mg/dL 35-149 [facility] Comment on above: TRIG ATP III CLASSIF ICATION TRIG less than 150 mg/dL Normal TRIG 150-199 mg/dL Borderline high TRIG 200-500 mg/dL High TRIG greater than 500 mg/dL Very high Standard traceable to the Center for Disease Conrtrol and Prevention (CDC) test method. Complete Blood Counton 05-16 Erythrocyte distribution width (RBC) [Ratio] 14.4 % Normal 11.0-15.0 [facility] Comment on above: Performed By: #### C BC #### [facility] [address], [place] [id number] Hematocrit (Bld) [Volume fraction] 44.4 % Normal 35.0-47.0 [facility] Comment on above: Performed By: #### C BC #### [facility] [address], [place] [id number] Hemoglobin (Bld) [Mass/Vol] 14.1 g/dL Normal 11.6-15.5 [facility] Administrator Comment on above: Performed By: #### C BC #### [facility] [address], [place] [id number] MCH (RBC) [Entitic mass] 28.3 pg Normal 27.0-33.0 [facility] Comment on above: Performed By: #### C BC #### [facility] [address], [place] [id number] MCHC (RBC) [Mass/Vol] 31.8 g/dL Low 32.0-36.0 [facility] Comment on above: Performed By: #### C BC #### [facility] [address], [place] [id number] MCV (RBC) [Entitic vol] 89 fL Normal 80-100 [facility] Comment on above: Performed By: #### C BC #### [facility] [address], [place] [id number] Platelet mean volume (Bld) [Entitic vol] 10.40 fL Normal 7.50-12.50 [facility] Comment on above: Performed By: #### C BC #### [facility] [address], [place] [id number] Platelets (Bld) [#/Vol] 555 10*3/uL High 140-400 [facility] Comment on above: Performed By: #### C BC #### [facility] [address], [place] [id number] RBC (Bld) [#/Vol] 4.99 10*6/uL Normal 3.90-5.20 [facility] Comment on above: Performed By: #### C BC #### [facility] [address], [place] [id number] RDW-SD 46.8 fL Normal 37.0-50.0 [facility] Comment on above: Performed By: #### C BC #### [facility] [address], [place] [id number] WBC (Bld) [#/Vol] 6.7 10*3/uL Normal 3.8-11.0 [facility] Comment on above: Performed By: #### C BC #### [facility] [address], [place] [id number] CNOVon 03-17-2021 CNOV Office Visit (CARDMN ) GLORIA ALLEN ([id number]) 1960 F Date Time Provider Department 03/17/21 [...] to seek emergency care. She wore a Zapstitch event monitor for 12 days in January [...] bearing down or coughing Occur 3x/week Wore Zapstitch event monitor for 12 days in 01/2021. [...] deaths, atrial fibrillation. 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 , 3 children, 1 grandchild. Lives in [place], [place] Habits: Tobacco: none. Alcohol: 1 drink [...] acid (RHIANNON (more content not included)... Normal [facility] 03-17-2021 CNPN Telephone (CARDMN) GLORIA ALLEN ([id number]) 1960 F Date Time Provider Department 03/17/21 NIKITA REYES During your visit today, we recorded the following information about you: Philly Nair 03/17/2021 4:06 PM Signed Outside medical records scanned into Sqrrl drive. Disk uploaded to [employer]: Echocardiogram 01/27/2021. Allergies As of Date: 03/17/2021 (Not on File) Date Reviewed: Never Reviewed Reason for Visit: Received Outside Medical Records [4002] Problem List As Of Date: 03/17/2021 (None) Encounter Status:Closed by PHILLY NAIR on 03/17/21 [facility] 12-31-[address] [facility] CNPNon 12-30-2020 CNPN Telephone (REFPHY) GLORIA ALLEN ([id number]) 1960 F Date Time Provider Department 12/30/20 NO PCP (HISTORICAL) REFPHY During your visit today, we recorded the following information about you: Kyle Crowell 12/30/2020 9:12 AM Signed Patient: Gloria Allen Date of : 1960 Patient phone number: [phone] Referring Provider for the encounter: Zeus Lamas Requesting Provider: Nikita Reyes Reason for requesting visit (RFV/signs and symptoms/diagnosis): palpitations Person calling: via RP fax Return call to: self Medical Records/Insurance Card scanned into [employer]: No Comments: helder Boles 12/31/2020 10:34 AM Signed [employer] RP - Message left for patient to call back to schedule an appointment in EP? for Palpitations, requesting Dr. Reyes per RP referrals. Allergies As of Date: 12/30/2020 (Not on File) Date Reviewed: Never Reviewed Reason for Visit: External Referrals/resources [909] Problem List As Of Date: 12/30/2020 (None) Encounter Status:Closed by KYLE MUNOZ on 12/30/20 [facility] CNPNon 12-23-2020 CNPN Telephone (REFPHY) GLORIA ALLEN ([id number]) 1960 F Date Time Provider Department 12/23/20 NO ONE (HISTORICAL) REFPHY During your visit today, we recorded the following information about you: Alexandria Hernandez 12/23/2020 7:19 AM Signed Patient: Gloria Allen Date of : 1960 Patient phone number: [phone] Referring Provider for the encounter: Dr Zeus Lamas Requesting Provider: Dr Wesley Mallory - Cardiology Reason for requesting visit (RFV/signs and symptoms/diagnosis): Tachycardia, palipatations Person calling: caregiver: ASHLEY Return call to: self Medical Records/Insurance Card scanned into [employer]: Yes Comments: Additional records saved to [employer] Cheyenne Boles 12/23/2020 9:31 AM Signed HVTI [...] Status:Closed by ALEXANDRIA TERRY on 12/23/20 Normal [facility] Albumin [Mass/volume] in Ser um or PlasmaOrdered By: Rosa Romo on 12-16-2020 Albumin [Mass/Vol] 3.9 g/dL 2.9-4.4 [facility] Immunoglobulin light chains. kappa.free [Mass/volume] in SerumOrdered By: Rosa Romo on 12-16-2020 Immunoglobulin light chains.kappa.free (S) [Mass/Vol] 12.3 mg/L 3.3-19.4 [facility] Immunoglobulin light chains. kappa.free/Immunoglobulin light chains.lambda.free [MassOrdered By: Rosa Romo on 12-16-2020 Immunoglobulin light chains.kappa.free/Immu noglobulin light chains.lambda.free (S) [Mass ratio] 0.83 0.26-1.65 [facility] Comment on above: Performed at: [address] [id number] [employer]: Osiel Combs PhD, Phone: [phone] Performed at: [address] [id number] Director: Osiel Combs PhD, Phone: [phone] Immunoglobulin light chains. lambda.free [Mass/volume] in Serum or PlasmaOrdered By: Rosa Romo on 12-16-2020 Immunoglobulin light chains.lambda.free [Mass/Vol] 14.8 mg/L 5.7-26.3 [facility] No Panel InformationOrdered By: Rosa Romo on 12-16-2020 25-Hydroxy Vitamin D Total 51.1 ng/mL 30-100 [facility] Comment on above: VITAMIN D STATUS [...] Electrophoresis M-Sonny Not observed g/dL Not Observed [facility] Protein Electrophoresis Note See comment . [facility] Comment on above: Protein electrophore sis scan will follow via computer, mail, or fire ranger delivery. Performed at: [facility] [address] [id number] [employer]: Osiel Combs PhD, Phone: [phone] Protein electrophore sis scan will follow via computer,mail, or fire ranger delivery.Performed at: [facility] [address] [id number] Director: Osiel Combs PhD, Phone: [phone] Protein [Mass/volume] in Ser um or PlasmaOrdered By: Rosa Romo on 12-16-2020 Protein [Mass/Vol] 7.0 g/dL 6.0-8.5 [facility] Serum globulin measurement ( mass/volume)Ordered By: Rosa Romo on 12-16-2020 Globulin (S) [Mass/Vol] 3.1 g/dL 2.2-3.9 [facility] Serum or plasma albumin/glob ulin mass ratioOrdered By: Rosa Romo on 12-16-2020 Albumin/Globulin [Mass ratio] 1.3 {ratio} 0.7-1.7 [facility] Serum or plasma alpha 1 glob ulin measurement by electrophoresis (mass/volume)Ordered By: Rosa Romo on 12-16-2020 Alpha 1 globulin Elph [Mass/Vol] 0.2 g/dL 0.0-0.4 [facility] Serum or plasma alpha 2 glob ulin measurement by electrophoresis (mass/volume)Ordered By: Rosa Romo on 12-16-2020 Alpha 2 globulin Elph [Mass/Vol] 0.7 g/dL 0.4-1.0 [facility] Serum or plasma beta globuli n measurement by electrophoresis (mass/volume)Ordered By: Rosa Romo on 12-16-2020 Beta globulin Elph [Mass/Vol] 1.1 g/dL 0.7-1.3 [facility] Serum or plasma calcitriol m easurement (mass/volume)Ordered By: Rosa Romo on 12-16-2020 1,25-dihydroxyvitamin D3 [Mass/Vol] 60.1 pg/mL 19.9-79.3 [facility] Comment on above: Performed at: [employer] [address] [id number] [employer]: Mitchell Glynn MD, Phone: [phone] Performed at: [employer] [address] [id number] Director: Mitchell Glynn MD, Phone: [phone] Serum or plasma gamma globul in measurement by electrophoresis (mass/volume)Ordered By: Rosa Romo on 12-16-2020 Gamma globulin Elph [Mass/Vol] 1.0 g/dL 0.4-1.8 [facility] Serum or plasma intact parat hyroid hormone measurement (mass/volume)Ordered By: Rosa Romo on 12-16-2020 Parathyrin.intact [Mass/Vol] 44.6 pg/mL 12- [facility] TSH DL <= 0.005 mIU/L QnOrde red By: Rosa Romo on 12-16-2020 TSH Qn 1.61 m[IU]/L 0.45-5.33 [facility] Thyroxine (T4) free [Mass/vo lume] in Serum or PlasmaOrdered By: Rosa Romo on 12-16-2020 Free T4 [Mass/Vol] 0.73 ng/dL 0.61-1.12 [facility] Activated partial thrombopla stin time (aPTT) in platelet poor plasma by coagulation aon 06-15-2020 aPTT Coag (PPP) [Time] 28.4 s 22.9-30.2 [facility] - Coagulationon 0 06-15-2020 PT Coag (PPP) [Time] 11.2 s 9.1-12.0 [facility] No Panel Informationon 06-15 Coagulation Factor VIII Activity 116 % 56-140 [facility] Platelet poor plasma interna tional normalized ratio (INR) by coagulation assay (relaton 06-15-2020 INR Coag (PPP) [Relative time] 1.1 {INR} 0.9-1.2 [facility] Comment on above: INR Therapeutic Rang [...] multimers IB Nom (PPP) See comment . [facility] Comment on above: VWF multimer analysi [...] developed and its performance characteristics determined by [employer] It has not been cleared or approved by the Food and Drug Administration. Performed at: [employer] [address] [id number] [employer]: Sivakumar Mejia MD, Phone: [phone] VWF multimer analysi s demonstrates a normal pattern anddistribution of bands. This is the pattern of multimersthat occurs in normal individuals as well as in those withtype 1 von Willebrand disease (VWD), type 2M and type 2NVWD. Some acquired von Willebrand syndrome cases may yielda normal pattern as well.No additional results available for further interpretation.This test was developed and its performance characteristicsdetermined by [employer] It has not been cleared or approvedby the Food and Drug Administration.Performed at: [employer] [address] [id number] Director: Sivakumar Mejia MD, Phone: [phone] Von Willebrand factor activi ty measurementon 06-15-2020 vWf ristocetin cofactor act actual/normal Platelet aggregation (PPP) [Relative time] 62 % 50-200 [facility] Comment on above: Performed at: [facility] [address] [address] [id number] [employer]: Mitchell Glynn MD, Phone: [phone] Performed at: [employer] [address] [id number] Director: Mitchell Glynn MD, Phone: [phone] Von Willebrand factor antige n measurementon 06-15-2020 vWf Ag Qn (PPP) 86 % 50-200 [facility] Comment on above: This test was develo ped and its performance characteristics determined by [facility]. It has not been cleared or approved by the Food and Drug Administration. This test was develo ped and its performance characteristicsdetermined by [facility]. It has not been cleared orapproved by the Food and Drug Administration. No Panel Informationon 06-04 BCR/abl See comment [facility] Comment on above: See report. Scanned copy available in EMR. Calreticulin Mutation See comment [facility] Comment on above: See report. Scanned copy available in EMR.See report. Scanned copy available in EMR. --- 06/11/20799 --- Calr previously reported as: See report. Scanned copy available in EMR. See report. Scanned copy available in EMR.See report. Scanned copy available in EMR. --- 06/11/20799 ---Calr previously reported as: See report. Scanned copy available in EMR. JAK2 [id number] See comment [facility] Comment on above: See report. Scanned [...] in EMR. MPL Mutation Analysis See comment [facility] Comment on above: See report. Scanned copy available in EMR. C reactive protein [Mass/vol ume] in Serum or Plasmaon 05-31-2020 CRP [Mass/Vol] < 0.5 mg/dL 0.0-1.0 [facility] - Hematology and Cell countson 05-31-2020 WBC (Bld) [#/Vol] 8.9 10*3/uL 4.5-11.0 [facility] Serum homogeneous pattern an tinuclear antibody (STEPHANIE) titeron 05-31-2020 Homogenous nuclear Ab pattern (S) [Titer] N/A [facility] Serum nuclear antibody titer on 05-31-2020 Nuclear Ab (S) [Titer] Negative . Fi [facility] Comment on above: Negative <1:80 Borderline 1:80 Positive >1:80 Performed at: [employer] [address] [place], [place] [id number] [employer]: Osiel Combs PhD, Phone: [phone] Negative <1:80 Borde rline 1:80 Positive >1:80Performed at: [employer] [address] [id number] Director: Osiel Combs PhD, Phone: [phone] Serum or plasma rheumatoid f actor measurement (units/volume)on 05-31-2020 Rheumatoid factor Qn [IU]/mL 0.0-13.9 [facility] Comment on above: Performed at: [employer] [place] [id number] [employer]: Osiel Combs PhD, Phone: [phone] Performed at: [employer] [address] [id number] Director: Osiel Combs PhD, Phone: [phone] OVER READ - NCon 12-20-2017 OVER READ [...] extra arterial structures are otherwise unremarkable. Normal [facility] Vital Signs Date Time Vital Sign Value Performing Clinician Faci lity 03-21-2023 11:110400 Body temperature 97.8 [degF] DO Zeus Matik Work Phone: [facility] 03-21-2023 11:11040 Body weight 74.38 kg DO Zeus Matik Work Phone: [facility] 03-21-2023 11:11-0400 Diastolic blood pressure 77 mm[Hg] DO Zeus Cristinachak Work Phone: [facility] 03-21-2023 11:11-0400 Heart rate 64 /min DO Zeus Cristinachak Work Phone: [facility] 03-21-2023 11:11-0400 Respiratory rate 16 /min DO Zeus Cristinachak Work Phone: [facility] 03-21-2023 11:11-0400 SaO2% (BldA) [Mass fraction] 98 % DO Zeus Cristinachak Work Phone: [facility] 03-21-2023 11:11-0400 Systolic blood pressure 132 mm[Hg] DO Zeus Vaschak Work Phone: [facility] 03-24-2022 11:17-0400 Body temperature 97.8 [degF] DO Zeus Cristinachak Work Phone: [facility] 03-24-2022 11:17-0400 Body weight 70.76 kg DO Zeus Cristinachak Work Phone: [facility] 03-24-2022 11:17-0400 Diastolic blood pressure 81 mm[Hg] DO Zeus Vaschak Work Phone: [facility] 03-24-2022 11:17-0400 Heart rate 58 /min DO Zeus Vaschak Work Phone: [facility] 03-24-2022 11:17-0400 Respiratory rate 16 /min DO Zeus Vaschak Work Phone: [facility] 03-24-2022 11:17-0400 SaO2% (BldA) [Mass fraction] 100 % DO Zeus Vaschak Work Phone: [facility] 03-24-2022 11:17-0400 Systolic blood pressure 133 mm[Hg] DO Zeus Vaschak Work Phone: [facility] 12-23-2021 14:43-0400 Body temperature 97.8 [degF] DO Zeus Vaschak Work Phone: [facility] 12-23-2021 14:43-0400 Body weight 69.85 kg DO Zeus Vaschak Work Phone: [facility] 12-23-2021 14:43-0400 Diastolic blood pressure 75 mm[Hg] DO Zeus Vaschak Work Phone: [facility] 12-23-2021 14:43-0400 Heart rate 62 /min DO Zeus Vaschak Work Phone: [facility] 12-23-2021 14:43-0400 Respiratory rate 16 /min DO Zeus Vaschak Work Phone: [facility] 12-23-2021 14:43-0400 SaO2% (BldA) [Mass fraction] 99 % DO Zeus Vaschak Work Phone: [facility] 12-23-2021 14:43-0400 Systolic blood pressure 126 mm[Hg] DO Zeus Vaschak Work Phone: [facility] 05-31-2020 13:09-0500 Body height 172.72 cm DO Zues Lamas Work Phone: [facility] Encounters Encounter Date Encounter Type Care Provider Facility Start: 09-12-2023 ambulatory Rosa Demetrius Facility:[facility] Start: 09-11-2023 End: 09-11-2023 ambulatory Mckenzie Perkins Facility:[facility] Start: 09-11-2023 End: 09-11-2023 ambulatory DO Zeus Lamas Work Phone: [facility] Work Phone: Start: 09-11-2023 End: 09-11-2023 Patient encounter procedure DO Zeus Thornek Work Phone: [facility] Work Phone: Start: 06-05-2023 End: 06-05-2023 ambulatory MCKENZIE PERKINS Not Available Start: 03-21-2023 End: 03-21-2023 ambulatory DO Zeus Lamas Work Phone: [facility] Work Phone: Start: 03-21-2023 End: 03-21-2023 Registered Recurring DO Zeus Lamas Work Phone: [facility] Work Phone: Start: 03-19-2023 End: 03-19-2023 ambulatory Zeus Lamas Facility:[facility] Start: 03-19-2023 Encounter for genera l adult medical examination without abnormal findings Zeus Lamas [facility] Start: 03-19-2023 Registered Recurring DO Zeus Matik Work Phone: [facility] Work Phone: Start: 03-19-2023 End: 03-19-2023 ambulatory DO Zeus Matik Work Phone: [facility] Work Phone: Start: 03-19-2023 End: 03-19-2023 Patient encounter procedure DO Zeus Vaschak Work Phone: [facility] [place] Work Phone: Start: 09-08-2022 End: 09-08-2022 ambulatory DO Zeus Lamas Work Phone: [facility] Work Phone: Start: 09-08-2022 End: 09-08-2022 Patient encounter procedure DO Zeus Lamas Work Phone: [facility] Work Phone: Start: 08-31-2022 End: 08-31-2022 ambulatory DO Zeus Lamas Work Phone: [facility] Work Phone: Start: 08-31-2022 End: 08-31-2022 Patient encounter procedure DO Zeus Lamas Work Phone: [facility] Work Phone: Start: 03-24-2022 End: 03-24-2022 ambulatory DO Zeus Lamas Work Phone: [facility] Work Phone: Start: 03-24-2022 End: 03-24-2022 Registered Recurring DO Zeus Lamas Work Phone: [facility] Start: 12-23-2021 End: 12-23-2021 Registered Recurring DO Zeus Lamas Work Phone: [facility] Start: 12-20-2021 End: 12-20-2021 Patient encounter procedure DO Zeus Lamas Work Phone: [facility] [place] Start: 12-20-2017 Patient encounter ZEUS LAMAS Fac [...] Detail Author Start: 12-23-2021 Registered Recurring Thrombocytosis [facility] Start: 09-28-2021 [facility] Start: 09-21-2021 [facility] Start: 08-19-2021 [facility] Comprehensive metabo lic 1999 panel - Serum or Plasma [facility] Work Phone: Comprehensive metabo lic 1999 panel - Serum or Plasma [facility] Comprehensive metabo lic 1999 panel - Serum or Plasma [facility] Payers Date Payer Category Payer Self-pay [id number] 2020 Unknown [id number] 21 [id number] 2020 Unknown [id number] 1960 Unknown [id number] [id number] [id number] Unknown TIFFANY TENORIO Unknown [id number] 2.16.8 [id number] Unknown [id number] 2.16.8 [id number] Unknown [id number] 2.16.8 [id number] Social History Date Type Detail Facility Start: 12-23-2021 End: 03-24-2022 Tobacco smoking status NHIS Never smoked tobacco (finding) [facility] Start: 1960 Sex Assigned At Female F [facility] Clinical Notes 05-31-2020 to 03-24-2022 Note Date & Type Note Facility 03-24-2022 Progress note Note Date/Time March 24, 2022 11:23[facility] at [address] [address] Hem/Onc Follow Up Note - OP Signed Patient: Gloria Allen MR#: [id number] : 1960 Acct:[id number] Age/Sex: 61 / F Type: REG RCR [...] iron stores in one month (f/u with [facility]). If platelets < 450,000 at that time, [...] 03/24/22 @ 16:09 by Rosa Romo MD) Trego teeth removed - Family History Family History: [...] % (Auto) 66.6, Lymph % (Auto) 24.9, Gosper % (Auto) 5.2, Eos % (Auto) 2.4, Baso % (Auto) 0.9, Neut # (Auto) 5.3, Lymph # (Auto) 2.0, Gosper # (Auto) 0.4, Eos # (Auto) 0.2, [...] 4-6 weeks to review iron studies with [facility], 4 month f/u CBC and determine cytoreduction [...] for coordination of care (as documented) and [id number] counseling of patient and/or family. Dictated By: Rosa Romo MD DD/ 21 Signed By: <Electronically signed by MD Rosa Romo> 03/24/22 1615 [facility] Work Phone: 1(786) 985-949207-30-2022 Progress note Author Rosa Romo [facility] December 24, 2021 4:39pm Note Date/Time December 23, 2021 2:49 pm [facility] [place] [address] Hem/Onc Follow Up Note - OP Signed Patient: Gloria Allen MR#: [id number] : 1960 Acct:[id number] Age/Sex: 61 / F Type: REG RCR [...] iron stores in one month (f/u with [facility]). If platelets < 450,000 at that time, [...] 12/24/21 @ 16:34 by Rosa Romo MD) Trego teeth removed - Family History Family History: [...] % (Auto) 63.2, Lymph % (Auto) 26.9, Gosper % (Auto) 6.3, Eos % (Auto) 2.9, Baso % (Auto) 0.7, Neut # (Auto) 4.0, Lymph # (Auto) 1.7, Gosper # (Auto) 0.4, Eos # (Auto) 0.2, [...] 4-6 weeks to review iron studies with [facility], 4 month f/u CBC and determine cytoreduction [...] for coordination of care (as documented) and [id number] counseling of patient and/or family. Dictated By: Rosa Romo MD DD/ 1448 Signed By: <Electronically signed by MD Rosa Romo> 12/24/21 1127 [facility] Work Phone: 1(967) 580-881004-23-2022 Progress note Author Rosa Romo [facility] September 17, 2021 6:26pm Note Date/Time September 16, 2021 12: 45pm [facility] at [address] [address] Hem/Onc Follow Up Note - OP Signed Patient: Gloria Allen MR#: [id number] : 1960 Acct:[id number] Age/Sex: 61 / F Type: REG RCR [...] iron stores in one month (f/u with [facility]). If platelets < 450,000 at that time, [...] 09/17/21 @ 18:19 by Rosa Romo MD) Trego teeth removed - Family History Family History: [...] 4-6 weeks to review iron studies with CHAIN PULLER, 4 month f/u CBC and determine cytoreduction [...] for coordination of care (as documented) and ynft-sq-rbid counseling of patient and/or family. Dictated By: Rosa Romo MD DD/ 1245 Signed By: <Electronically signed by MD Rosa Romo> 09/17/21 7687 [facility] Work Phone: 1(947) 772-204003-25-2022 Procedure [facility]25[facility]12-23-2021 Progress note Author Rosa Romo [facility] May 19, 2021 7:48pm Note Date/Time May 19, 2021 3:41pm [facility] at [address] [address] Hem/Onc Follow Up Note - OP Signed Patient: Gloria Allen MR#: [id number] : 1960 Acct:[id number] Age/Sex: 61 / F Type: REG RCR [...] 05/19/21 @ 15:43 by Rosa Romo MD) Trego teeth removed - Family History Family History: [...] 08:50 12/16/20 08:50 Outside Labs: Labs at [facility] laboratory: 05/16/2021: White blood cells 6700, hemoglobin [...] noted on monitoring. Transcribed By: ELIZABETH 03/17/21 6844 Dictated By: Zeus Lamas DO 03/16/21 5497 Assessment and Plan - TNM Staging Staging: [...] for coordination of care (as documented) and hjiq-ud-zduw counseling of patient and/or family. Dictated By: Rosa Romo MD DD/ 1534 Signed By: <Electronically signed by MD Rosa Romo> 05/19/211947 [facility] Work Phone: 1(906) 756-924110-21-2021 NoteHNO ID: [id number] Author: Nikita Reyes MD Service: ? Author [...] to seek emergency care. She wore a Zapstitch event monitor for 12 days in January [...] bearing down or coughing Occur 3x/week Wore Zapstitch event monitor for 12 days in 01/2021. [...] deaths, atrial fibrillation. 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 , 3 children, 1 grandchild. Lives in [place], [place] Habits: Tobacco: none. Alcohol: 1 drink [...] mg tablet T (more content not included)... [facility]08-03-2021 Progress note Author Rosa Romo [facility] December 28, 2020 7:12am Note Date/Time December 27, 2020 3:4 6pm [facility] [place] [address] Hem/Onc Follow Up Note - OP Signed Patient: Gloria Allen MR#: [id number] : 1960 Acct:[id number] Age/Sex: 60 / F Type: REG RCR [...] 12/28/20 @ 07:08 by Rosa Romo MD) Trego teeth removed - Family History Family History: [...] for coordination of care (as documented) and sqeu-nr-lrap counseling of patient and/or family. Dictated By: Rosa Romo MD DD/ 1545 Signed By: <Electronically signed by MD Rosa Romo> 12/28/20 0712 [facility] Work Phone: 1(240) 140-629304-20-2021 Progress note Author Rosa Romo [facility] September 14, 2020 7:40pm Note Date/Time September 13, 2020 4:0 3pm [facility] [place] [address] Hem/Onc Follow Up Note - OP Signed Patient: Gloria Allen MR#: [id number] : 1960 Acct:[id number] Age/Sex: 60 / F Type: REG RCR [...] 09/14/20 @ 19:34 by Rosa Romo MD) Trego teeth removed - Family History Family History: [...] % (Auto) 70.2, Lymph % (Auto) 19.6, Gosper % (Auto) 7.3, Eos % (Auto) 2.3, Baso % (Auto) 0.6, Neut # (Auto) 6.0, Lymph # (Auto) 1.7, Gosper # (Auto) 0.6, Eos # (Auto) 0.2, [...] for coordination of care (as documented) and ccng-nz-zdbp counseling of patient and/or family. Dictated By: Rosa Romo MD DD/ 7083 Signed By: <Electronically signed by MD Rosa Romo> 09/14/201939 [facility] Work Phone: 1(641) 338-460901-18-2021 Progress note Author Rosa Romo [facility] June 14, 2020 4:10pm Note Date/Time June 14, 2020 3 :26pm [facility] at [place] [id number] Hem/Onc Follow Up Note - OP Signed Patient: Gloria Allen MR#: [id number] : 1960 Acct:[id number] Age/Sex: 60 / F Type: REG RCR [...] 06/14/20 @ 15:59 by Rosa Romo MD) Trego teeth removed - Family History Family History: [...] for coordination of care (as documented) and akbf-lz-netx counseling of patient and/or family. Dictated By: Rosa Romo MD DD/ 1525 Signed By: <Electronically signed by MD Rosa Romo> 06/14/20 1610 [facility] Work Phone: 1(696) 971-743301-04-2021 Consult note Author Rosa Romo [facility] May 31, 2020 8:56pm Note Date/Time May 31, 2020 1: 29pm [facility] at [place] [id number] Hem/Onc Consult Note - OP Signed Patient: Gloria Allen MR#: [id number] : 1960 Acct:[id number] Age/Sex: 60 / F Type: REG RCR [...] 05/31/20 @ 20:40 by Rosa Romo MD) Trego teeth removed - Family History Family History: [...] for coordination of care (as documented) and ogkl-lw-fdlk counseling of patient and/or family. Dictated By: Rosa Romo MD DD/ 1329 Signed By: <Electronically signed by MD Rosa Romo> 05/31/202055 [facility] Work Phone: Evaluation note* Diagnosis Onset Date Resolution Status Thrombocytosis acute Epigastric pain chronic Essential thrombocytosis chr onic Iron deficiency anemia chron ic [facility] Work Phone: Evaluation noteNo assessment information available [facility] Work Phone: Evaluation note* Diagnosis Onset Date Resolution Status Thrombocytosis acute Epigastric pain chronic Essential thrombocytosis chr onic Iron deficiency anemia resol chelly [facility] Work Phone: Progress note Author Rosa Romo [facility] December 24, 2021 4:39pm Note Date/Time December 23, 2021 2:49 pm [facility] at [address] [address] Hem/Onc Follow Up Note - OP Signed Patient: Gloria Allen MR#: [id number] : 1960 Acct:[id number] Age/Sex: 61 / F Type: REG RCR [...] iron stores in one month (f/u with CHAIN PULLER). If platelets < 450,000 at that time, [...] 12/24/21 @ 16:34 by Rosa Romo MD) Trego teeth removed - Family History Family History: [...] % (Auto) 63.2, Lymph % (Auto) 26.9, Gosper % (Auto) 6.3, Eos % (Auto) 2.9, Baso % (Auto) 0.7, Neut # (Auto) 4.0, Lymph # (Auto) 1.7, Gosper # (Auto) 0.4, Eos # (Auto) 0.2, [...] 4-6 weeks to review iron studies with CHAIN PULLER, 4 month f/u CBC and determine cytoreduction [...] for coordination of care (as documented) and dqpv-xp-vpst counseling of patient and/or family. Dictated By: Rosa Romo MD DD/ 1448 Signed By: <Electronically signed by MD Rosa Romo> 12/24/21 1020 [facility] Work Phone: Progress note Author Rosa Romo [facility] March 24, 2022 4:15pm Note Date/Time March 24, 2022 1 1:23am [facility] [place] [address] Hem/Onc Follow Up Note - OP Signed Patient: Gloria Allen MR#: [id number] : 1960 Acct:[id number] Age/Sex: 61 / F Type: REG RCR [...] iron stores in one month (f/u with CHAIN PULLER). If platelets < 450,000 at that time, [...] 03/24/22 @ 16:09 by Rosa Romo MD) Trego teeth removed - Family History Family History: [...] % (Auto) 66.6, Lymph % (Auto) 24.9, Gosper % (Auto) 5.2, Eos % (Auto) 2.4, Baso % (Auto) 0.9, Neut # (Auto) 5.3, Lymph # (Auto) 2.0, Gosper # (Auto) 0.4, Eos # (Auto) 0.2, [...] 4-6 weeks to review iron studies with CHAIN PULLER, 4 month f/u CBC and determine cytoreduction [...] for coordination of care (as documented) and xefm-ej-dfdf counseling of patient and/or family. Dictated By: Rosa Romo MD DD/ 1122 Signed By: <Electronically signed by MD Rosa Romo> 03/24/22 1619 [facility] Work Phone: Summary Purpose Family [...] section and content) DATE CREATED AUTHOR 12/21/2017 [facility] DATE CREATED AUTHOR AUTHOR'S ORGANIZ ATION 05/16/2021 [facility] DATE CREATED AUTHOR AUTHOR'S ORGANIZ ATION 06/30/2021 [facility] DATE CREATED AUTHOR AUTHOR'S ORGANIZ ATION 06/06/2023 [facility] DATE CREATED AUTHOR AUTHOR'S ORGANIZ ATION 09/14/2023 [facility] Care Teams (unrecognized sec [...] BE BASED ON THE PRIMARY CLINICAL RECORDS. [facility]. provides no warranty or guarantee of the accuracy or completeness of information in this document.
[2024-01-31 11:46] VITALS: BP 124/60; PULSE 63; O2SAT 98
== END 2024-01-31 11:52 | disposition home or self-care (01) ==
LOC: VC 11:04
PROVIDERS: PCP Radiology Diagnostic Radiology; Visit Provider Radiology Diagnostic Radiology
DX: I83.813 Varicose veins of bilateral lower extremities with pain (principal)
CPT/HCPCS: 36471

== ENCOUNTER 2024-02-19 10:52 | Outpatient (OUT) | payer OTHER, SELFPAY ==
--- NOTE | 2024-02-18 14:29 | V.VEINS.HP ---
Vital Signs 02/18/24 14:32 02/19/24 11:15 Height 5 ft 7 in Weight 74.843 kg BP 139/72 BP Location Left Brachial BP Position Sitting BP Cuff Size Adult BP Source Automatic Cuff Respiration 16 Pulse 59 L Pulse Source Monitor Pulse Oximetry (%) 99 Oxygen Delivery Method Room Air Comment The patient's blood pressure is elevated. Varicose Veins Patient in this day for sclerotherapy Osmany Morejon MD personally performed the services described in this documentation, as scribed by Donald Corral RN in my presence and it is both accurate and complete. Donald Morejon RN, am scribing for, and in the presence of, Dr. Osmany Warren and in the presence of the patient. thigh: bilateral, knee: bilateral, calf: bilateral, ankle: bilateral and cameron: bilateral aching and cramping 3 2 years Worsened in recent months: Yes standing and sitting bed rest, elevating extremities and compression stockings History of lower extremity trauma: No Superficial thrombophlebitis: No Family history of varicose veins: yes Has patient had previous lower extremity venous surgery: No Patient has previously received the following treatment(s) for lower extremity varicose veins: Reports none Does patient have a history of : yes Does patient intend to have future pregnancies: no Has patient had lower extremity venous scan with relux testing: Yes Support hose used: Yes Problems walking or doing physical activity: Yes How does it affect you: Symptoms have worsened in the past 2 years Do you walk much: Yes Do you stand much: Yes Medication compliance: good Large amounts of Vitamin K: No Review of Systems ROS Narrative Osmany Morejon MD personally performed the services described in this documentation, as scribed by Donald Corral RN in my presence and it is both accurate and complete. Donald Morejon RN, am scribing for, and in the presence of, Dr. Osmany Warren and in the presence of the patient. Status of ROS 10 or more systems reviewed and unremarkable except as noted in history and below [facility] Medical History (Updated 12/11/23 @ 08:04 by Evie Castillo) Phlebitis and thrombophlebitis of superficial vessels of right lower extremity ?I80.01 - Phlebitis and thrombophlebitis of superficial vessels of right lower extremity (ICD-10) Hypercoagulable state ?D68.59 - Other primary thrombophilia (ICD-10) Varicose veins of bilateral lower extremities with pain ?I83.813 - Varicose veins of bilateral lower extremities with pain (ICD-10) Surgical History (Updated 02/19/24 @ 11:47 by Donald Corral) S/P sclerotherapy of varicose veins ?Z98.890 - Other specified postprocedural states (ICD-10) ?Z86.79 - Personal history of other diseases of the circulatory system (ICD-10) S/P sclerotherapy of varicose veins ?Z98.890 - Other specified postprocedural states (ICD-10) ?Z86.79 - Personal history of other diseases of the circulatory system (ICD-10) H/O dilation and curettage ?Z98.890 - Other specified postprocedural states (ICD-10) Previous section ?Z98.891 - History of uterine scar from previous surgery (ICD-10) Family History (Updated 12/04/23 @ 08:18 by Evie Hollis RN) Aunt Varicose veins of bilateral lower extremities with pain Social History (Updated 12/04/23 @ 08:19 by Evie Hollis RN) Within the past year, how often did you have a drink containing alcohol: monthly or less Smoking status: Never smoker Non-prescribed substance use: denies use Meds Home Medications and Allergies Home Medications ?Medication ?Instructions ?Recorded ?Confirmed ?Type aspirin 81 mg tablet,delayed 81 mg PO DAILY 12/04/23 12/31/23 History release (Adult Aspirin Regimen) cholecalciferol (vitamin D3) 25 25 mcg PO DAILY 12/04/23 12/31/23 History mcg (1,000 unit) capsule Allergies Allergy/AdvReac Type Severity Reaction Status Date / Time No Known Drug Allergies Allergy Verified 09/14/23 15:20 Exam Narrative Exam Narrative: IOsmany MD personally performed the services described in this documentation, as scribed by Donald Corral RN in my presence and it is both accurate and complete. IDonald RN, am scribing for, and in the presence of, Dr. Osmany Warren and in the presence of the patient. Constitutional Documenting provider has reviewed patient's vital signs: yes Common normals: oriented x3 Lymph Lymphatic: no lymphedema noted Cardio Common normals: regular rate Rate: regular rate Peripheral pulses: posterior tibial pulses present and dorsalis pedis pulses present Extremity Common normals: normal capillary refill Neuro Common normals: oriented x3 Assessment and Plan Assessment and Plan (1) Varicose veins of bilateral lower extremities with pain: Plan Additional sclerotherapy Osmany Morejon MD personally performed the services described in this documentation, as scribed by Donald Corral RN in my presence and it is both accurate and complete. Donald Morejon RN, am scribing for, and in the presence of, Dr. Osmany Warren and in the presence of the patient. Procedures Procedure Instructions Procedures sclerotherapy: Risks and benefits of the procedure were discussed at length and informed written consent was obtained.? Time-out procedure was performed and the correct patient and procedure were confirmed.? Staff present during time-out: Donald Corral RN and Osmany Warren MD.? Patient prepped and procedure performed in usual sterile fashion. Injections performed by Dr. Warren and Donald Corral RN Sclerosing Agent:?? 4cc 0.5% Polidocanol Site Injected: right leg Number of Injections: 34 Anesthesia: Supercooled air The patient tolerated the procedure well without complication.? Hemostasis was obtained and thigh-high compression stocking was applied by patient.? Instructed patient to wear stocking for at least 96 hours and sleep with it and only remove for showering.? Will wear stocking for 2 weeks.? The patient verbalizes understanding and states they will comply.? Patient was given post-procedure instructions. Patient was discharged in good condition.? Scheduled to undergo additional injection sclerotherapy on 02/20/2024. Osmany Morejon MD personally performed the services described in this documentation, as scribed by Donald Corral RN in my presence and it is both accurate and complete. Donald Morejon RN, am scribing for, and in the presence of, Dr. Osmany Warren and in the presence of the patient.
--- NOTE | 2024-02-18 14:31 | P.DS_ITS ---
Discharge Plan Discharge Disposition: Home, Self-Care Outpatient Diagnostics: VC INJ Sclerosing SOLMULT Vein (Routine) Timeframe: 2 Weeks Facility: [facility] - Location: [facility]in Center Ordered By: Corbin Shepherd Follow Up Appointments: 02/20/2024 Plan of Treatment: Additional sclerotherapy Patient Instructions: Polidocanol (By injection) Print Language: Uruguayan Discharge Date/Time: 02/19/24 11:48
--- NOTE | 2024-02-19 11:08 | VEIN_ITS ---
[address] [address] Patient Name: JONA ALLEN MRN: [id number] date: 1960 Sex: F Assigned Patient Location: Current Patient Location: Accession/Order Number: [id number] Exam Date: 02/19/2024 11:16 Report Date: 02/19/2024 13:16 At the request of: CASANDRA HAWTHORNE Procedure: VC INJ Sclerosing SOLMULT Vein EXAMINATION: VC INJ Sclerosing SOLMULT Vein HISTORY: I83.813 - Varicose veins of bilateral lower extremities w... The risks and benefits of the procedure were explained at length to the patient and informed written consent was obtained. The procedure was performed under sterile technique. The patient's leg was wrapped with Coban and postprocedural verbal and written instructions provided. Donald Corral RN was present and assisted. SCLEROSANT: 2mL 0.5% Polidocanol. VEIN(S) INJECTED: 34 veins in the right leg. VISUALIZATION: Ultrasound was not used to visualize the sclerosant. ANESTHESIA: Supercooled air. COMPLICATIONS: None. Electronically authenticated by: CASANDRA HAWTHORNE Date: 02/19/2024 13:16
[2024-02-19 11:15] VITALS: BP 139/72; PULSE 59; O2SAT 99
== END 2024-02-19 11:48 | disposition home or self-care (01) ==
LOC: VC 11:07
PROVIDERS: PCP Radiology Diagnostic Radiology; Visit Provider Radiology Diagnostic Radiology
DX: I83.813 Varicose veins of bilateral lower extremities with pain (principal)
CPT/HCPCS: 36471

== ENCOUNTER 2024-02-20 10:08 | Outpatient (OUT) | payer OTHER, SELFPAY ==
--- NOTE | 2024-02-19 11:51 | VEINCLINIC_ITS ---
Vital Signs 02/20/24 10:15 BP 132/77 BP Location Left Brachial BP Position Sitting BP Cuff Size Adult BP Source Automatic Cuff Respiration 16 Pulse 57 L Pulse Source Monitor Pulse Oximetry (%) 100 Comment The patient's blood pressure is elevated. Varicose Veins Patient in this day for sclerotherapy Osmany Morejon MD personally performed the services described in this documentation, as scribed by Donald Corral RN in my presence and it is both accurate and complete. Donald Morejon RN, am scribing for, and in the presence of, Dr. Osmany Warren and in the presence of the patient. thigh: bilateral, knee: bilateral, calf: bilateral, ankle: bilateral and cameron: bilateral aching and cramping 3 2 years Worsened in recent months: Yes standing and sitting bed rest, elevating extremities and compression stockings History of lower extremity trauma: No Superficial thrombophlebitis: No Family history of varicose veins: yes Has patient had previous lower extremity venous surgery: No Patient has previously received the following treatment(s) for lower extremity varicose veins: Reports none Does patient have a history of : yes Does patient intend to have future pregnancies: no Has patient had lower extremity venous scan with relux testing: Yes Support hose used: Yes Problems walking or doing physical activity: Yes How does it affect you: Symptoms have worsened in the past 2 years Do you walk much: Yes Do you stand much: Yes Medication compliance: good Large amounts of Vitamin K: No Review of Systems ROS Narrative Osmany Morejon MD personally performed the services described in this documentation, as scribed by Donald Corral RN in my presence and it is both accurate and complete. Donald Morejon RN, am scribing for, and in the presence of, Dr. Osmany Warren and in the presence of the patient. Status of ROS 10 or more systems reviewed and unremark able except as noted in history and below [facility] Medical History (Updated 12/11/23 @ 08:04 by Evie Castillo) Phlebitis and thrombophlebitis of superficial vessels of right lower extremity ?I80.01 - Phlebitis and thrombophlebitis of superficial vessels of right lower extremity (ICD-10) Hypercoagulable state ?D68.59 - Other primary thrombophilia (ICD-10) Varicose veins of bilateral lower extremities with pain ?I83.813 - Varicose veins of bilateral lower extremities with pain (ICD-10) Surgical History (Updated 02/20/24 @ 10:56 by Donald Corral) S/P sclerotherapy of varicose veins ?Z98.890 - Other specified postprocedural states (ICD-10) ?Z86.79 - Personal history of other diseases of the circulatory system (ICD- 10) S/P sclerotherapy of varicose veins ?Z98.890 - Other specified postprocedural states (ICD-10) ?Z86.79 - Personal history of other diseases of the circulatory system (ICD- 10) S/P sclerotherapy of varicose veins ?Z98.890 - Other specified postprocedural states (ICD-10) ?Z86.79 - Personal history of other diseases of the circulatory system (ICD- 10) H/O dilation and curettage ?Z98.890 - Other specified postprocedural states (ICD-10) Previous section ?Z98.891 - History of uterine scar from previous surgery (ICD-10) Family History (Updated 12/04/23 @ 08:18 by Evie Hollis RN) Aunt Varicose veins of bilateral lower extremities with pain Social History (Updated 12/04/23 @ 08:19 by Evie Hollis, RN) Within the past year, how often did you have a drink containing alcohol: monthly or less Smoking status: Never smoker Non-prescribed substance use: denies use Meds Home Medications and Allergies Home Medications ?Medication ?Instructions ?Recorded ?Confirmed ?Type aspirin 81 mg tablet,delayed 81 mg PO DAILY 12/04/23 12/31/23 History release (Adult Aspirin Regimen) cholecalciferol (vitamin D3) 25 25 mcg PO DAILY 12/04/23 12/31/23 History mcg (1,000 unit) capsule Allergies Allergy/AdvReac Type Severity Reaction Status Date / Time No Known Drug Allergies Allergy Verified 09/14/23 15:20 Exam Narrative Exam Narrative: IOsmany MD personally performed the services described in this documentation, as scribed by Donald Corral RN in my presence and it is both accurate and complete. IDonald RN, am scribing for, and in the presence of, Dr. Osmany Warren and in the presence of the patient. Constitutional Documenting provider has reviewed patient's vital signs: yes Common normals: oriented x3 Lymph Lymphatic: no lymphedema noted Cardio Common normals: regular rate Rate: regular rate Peripheral pulses: posterior tibial pulses present and dorsalis pedis pulses present Extremity Common normals: normal capillary refill Neuro Common normals: oriented x3 Assessment and Plan Assessment and Plan (1) Varicose veins of bilateral lower extremities with pain: Plan Plan of care complete at this time. Patient to f/u as necessary. Osmany Morejon MD personally performed the services described in this documentation, as scribed by Donald Corral RN in my presence and it is both accurate and complete. Donald Morejon RN, am scribing for, and in the presence of, Dr. Osmany Warren and in the presence of the patient. Procedures Procedure Instructions Procedures sclerotherapy: Risks and benefits of the procedure were discussed at length and informed written consent was obtained.? Time-out procedure was performed and the correct patient and procedure were confirmed.? Staff present during time-out: Donald Corral RN and Osmany Warren MD.? Patient prepped and procedure performed in usual parmjit rile fashion. Injections performed by Dr. Warren and Donald Corral RN Sclerosing Agent:?? 4cc 0.5% Polidocanol Site Injected: left leg Number of Injections: 26 Anesthesia: Supercooled air The patient tolerated the procedure well without complication.? Hemostasis was obtained and thigh-high compression stocking was applied by patient.? Instructed patient to wear stocking for at least 96 hours and sleep with it and only remove for showering.? Will wear stocking for 2 weeks.? The patient verbalizes understanding and states they will comply.? Patient was given post-procedure instructions. Patient was discharged in good condition.? Plan of care complete at this time. Patient to f/u as necessary. Osmany Morejon MD personally performed the services described in this documentation, as scribed by Donald Corral RN in my presence and it is both accurate and complete. Donald Morejon RN, am scribing for, and in the presence of, Dr. Osmany Warren and in the presence of the patient.
--- NOTE | 2024-02-19 11:54 | W.VEIN ---
Discharge Plan Discharge Disposition: Home, Self-Care Plan of Treatment: Plan of care complete at this time. Patient to f/u as necessary. Patient Instructions: Polidocanol (By injection) Print Language: Pashto Discharge Date/Time: 02/20/24 10:59
--- NOTE | 2024-02-20 10:09 | VEIN_ITS ---
[address] [address] Patient Name: JONA ALLEN MRN: [id number] date: 1960 Sex: F Assigned Patient Location: Current Patient Location: Accession/Order Number: [id number] Exam Date: 02/20/2024 10:09 Report Date: 02/20/2024 11:41 At the request of: HEMANT MCHUGH Procedure: VC INJ Sclerosing SOLMULT Vein EXAMINATION: VC INJ Sclerosing SOLMULT Vein HISTORY: I83.813 - Varicose veins of bilateral lower extremities w... The risks and benefits of the procedure were explained at length to the patient and informed written consent was obtained. The procedure was performed under sterile technique. The patient's leg was wrapped with Coban and postprocedural verbal and written instructions provided. Donald Corral RN was present and assisted. SCLEROSANT: 2mL 0.5% Polidocanol. VEIN(S) INJECTED: 26 veins in the left leg. VISUALIZATION: Ultrasound was not used to visualize the sclerosant. ANESTHESIA: Supercooled air. COMPLICATIONS: None. Electronically authenticated by: CASANDRA HAWTHORNE Date: 02/20/2024 11:41
--- OUTSIDE RECORDS SUMMARY | 2024-02-20 10:12 | XMS_ITS | CCD ---
Author Organization [facility] Care Team Providers Care Server Manager Name Role Phone ZEUS LAMAS Unavailable Unavailable ZEUS LAMAS Unavailable Unavailable ZEUS LMAAS Unavailable Unavailable DO Zeus Lamas Primary Care Provider DO Zeus Laams Attending Provider [phone] DO Zeus Lamas Referring Provider [phone] MD Rosa Romo Attending Provider [phone] DO Zeus Lamas Primary Care Provider DO Zeus Lamas Referring Provider [phone] MD Rosa Romo Attending Provider DO Zeus Lamas Primary Care Provider [phone] DO Mckenzei Perkins Attending Provider DO Zeus Lamas Primary Care Provider DO Zeus Lamas Attending Provider DO Zeus Lamas Referring Provider MD Rosa Romo Attending Provider [phone] DO Zeus Lamas Referring Provider [phone] MD Rosa Romo Attending Provider [phone] MCKENZIE PERKINS Attending Unavailable DO Zeus Lamas Primary Care Provider DO Mckenzie Perkins Attending Provider Zeus Lamas Admitting Unavailable Zeus Lmaas Primary Care Unavailable Zeus Lamas Attending Unavailable [...] (Bld) [#/Vol] 0.1 10*3/uL Normal 0.0-0.2 [facility] Comment on above: Result Comment: PERF ORMED BY: [place] [address] PATHOLOGIST ASSISTANT OCEANOGRAPHER MIGUEL LARSEN M.D. Performed By: #### C BC, CMP #### [address] Basophils/100 WBC (Bld) 1.0 % Normal . [facility] Comment on above: Performed By: #### C BC, CMP #### [address] Eosinophils (Bld) [#/Vol] 0.3 10*3/uL Normal 0.0-0.45 [facility] Comment on above: Performed By: #### C BC, CMP #### [place] [address] Eosinophils/100 WBC (Bld) 4.8 % Normal . [facility] Comment on above: Performed By: #### C BC, CMP #### [address] Erythrocyte distribution width (RBC) [Ratio] 16.0 % High 11.9-15.3 [facility] Comment on above: Performed By: #### C BC, CMP #### [address] Hematocrit (Bld) [Volume fraction] 42.6 % Normal 34.0-46.4 [facility] Comment on above: Performed By: #### C BC, CMP #### [address] Hemoglobin (Bld) [Mass/Vol] 13.8 g/dL Normal 11.8-15.4 [facility] Comment on above: Performed By: #### C BC, CMP #### [address] Lymphocytes (Bld) [#/Vol] 2.3 10*3/uL Normal 1.00-4.8 [facility] Comment on above: Performed By: #### C BC, CMP #### [address] Lymphocytes/100 WBC (Bld) 32.7 % Normal . [facility] Comment on above: Performed By: #### C BC, CMP #### [address] MCH (RBC) [Entitic mass] 28.9 pg Normal 24.7-34.3 [facility] Comment on above: Performed By: #### C BC, CMP #### [address] MCV (RBC) [Entitic vol] 89.0 fL Normal 80-100 [facility] Comment on above: Performed By: #### C BC, CMP #### [address] Mean Corpuscular HGB Conc 32.5 g/dL Normal 32.0-35.0 [facility] Comment on above: Performed By: #### C BC, CMP #### [address] Monocytes (Bld) [#/Vol] 0.5 10*3/uL Normal 0.0-0.8 [facility] Comment on above: Performed By: #### C BC, CMP #### [address] Monocytes/100 WBC (Bld) 7.2 % Normal . [facility] Comment on above: Performed By: #### C BC, CMP #### [address] Neutrophils (Bld) [#/Vol] 3.9 10*3/uL Normal 1.8-7.7 [facility] Comment on above: Performed By: #### C BC, CMP #### [address] Neutrophils/100 WBC (Bld) 54.3 % Normal . [facility] Comment on above: Performed By: #### C BC, CMP #### [address] NRBC% 0.0 /100{WBC} Normal 0-0.5 [facility] Comment on above: Performed By: #### C BC, CMP #### [address] Platelet mean volume (Bld) [Entitic vol] 8.2 fL Normal 6.3-10.7 [facility] Comment on above: Performed By: #### C BC, CMP #### [address] Platelets (Bld) [#/Vol] 599 10*3/uL High 150-450 [facility] Comment on above: Performed By: #### C BC, CMP #### [address] RBC (Bld) [#/Vol] 4.78 10*6/uL Normal 3.60-5.00 [facility] Comment on above: Performed By: #### C BC, CMP #### [address] WBC (Bld) [#/Vol] 7.1 10*3/uL Normal 3.8-11.6 [facility] Comment on above: Performed By: #### C BC, CMP #### [address] Comprehensive Metabolic Pane douglas 09-12-2023 Albumin [Mass/Vol] 4.8 g/dL Normal 3.5-5.7 [facility] Comment on above: Performed By: #### C BC, CMP #### [address] Albumin/Globulin [Mass ratio] 2.2 {ratio} Normal [facility] Comment on above: Performed By: #### C BC, CMP #### [address] ALP [Catalytic activity/Vol] 56 U/L Normal 34-104 [facility] Comment on above: Performed By: #### C BC, CMP #### [address] ALT [Catalytic activity/Vol] 15 U/L Normal 7-52 [facility] Comment on above: Performed By: #### C BC, CMP #### [address] Anion gap [Moles/Vol] 9.3 mmol/L Normal 6.0-15.0 [facility] Comment on above: Performed By: #### C BC, CMP #### [address] AST [Catalytic activity/Vol] 21 U/L Normal 13-39 [facility] Comment on above: Performed By: #### C BC, CMP #### [address] Bilirubin [Mass/Vol] 1.2 mg/dL High 0.3-1.0 [facility] Comment on above: Performed By: #### C BC, CMP #### [address] Calcium [Mass/Vol] 10.3 mg/dL Normal 8.6-10.3 [facility] Comment on above: Performed By: #### C BC, CMP #### [address] Chloride [Moles/Vol] 103 mmol/L Normal 98-107 [facility] Comment on above: Performed By: #### C BC, CMP #### [address] CO2 [Moles/Vol] 32.3 mmol/L High 21.0-31.0 [facility] Comment on above: Performed By: #### C BC, CMP #### [address] Creatinine [Mass/Vol] 0.82 mg/dL Normal 0.60-1.20 [facility] Comment on above: Performed By: #### C BC, CMP #### [address] Creatinine Clr Calc Pharmacy 70.84 Normal [facility] Comment on above: Result Comment: PERF ORMED BY: [place] [address] PATHOLOGIST ASSISTANT OCEANOGRAPHER MIGUEL LARSEN M.D. Performed By: #### C BC, CMP #### [address] GFR/1.73 sq M.predicted MDRD (S/P/Bld) [Vol rate/Area] mL/min/{1.73_m2} Normal [facility] Comment on above: Performed By: #### C BC, CMP #### [address] Globulin (S) [Mass/Vol] 2.2 g/dL Normal [facility] Comment on above: Performed By: #### C BC, CMP #### [address] [place] [address] [place] Glucose [Mass/Vol] 77 mg/dL Normal 70-100 [facility] Comment on above: Result Comment: [facility] Glucose Reference Range is dependent on time and content of last meal. Glucose of more than 200 mg/dL in a nonstressed, ambulatory subject supports the diagnosis of Diabetes Mellitus. ADA recommended reference range Performed By: #### C BC, CMP #### [facility] [address] Potassium [Moles/Vol] 4.6 mmol/L Normal 3.5-5.1 [facility] Comment on above: Performed By: #### C BC, CMP #### [facility] [address] Protein [Mass/Vol] 7.0 g/dL Normal 6.4-8.9 [facility] Comment on above: Performed By: #### C BC, CMP #### [address] Sodium [Moles/Vol] 140 mmol/L Normal 136-145 [facility] Comment on above: Performed By: #### C BC, CMP #### [address] Urea nitrogen [Mass/Vol] 18 mg/dL Normal 7-25 [facility] Comment on above: Performed By: #### C BC, CMP #### [address] MM screening mammo BI w/CADo n 09-11-2023 MM screening mammo BI w/CAD [facility] [place] [address] [place] [address] Mammography Report Signed Patient: Gloria Allen MR#: [id number] : 1960 Acct:[id number] Age/Sex: 63 / F ADM Date: 09/11/23 Loc: [place] Room: Type: [facility] Attending Dr: Mckenzie Perkins DO Copies [...] Diana Matos M.D.09/11/2023 1:30 PM Dictation Location: [facility] Transcribed By: CHRISTOFER 09/11/23 1330 Dictated By: Diana Matos MD 09/11/23 1327 Signed By: 09/11/23 1330 Normal [facility] Alanine aminotransferase [En zymatic activity/volume] in Serum or PlasmaOrdered By: Rosa Romo on 03-19-2023 ALT [Catalytic activity/Vol] 13 U/L 7-52 [facility] Albumin [Mass/volume] in Ser um or Plasma by Bromocresol green (BCG) dye binding methoOrdered By: Rosa Romo on 03-19-2023 Albumin BCG dye [Mass/Vol] 4.5 g/dL 3.5-5.7 [facility] Alkaline phosphatase [Enzyma tic activity/volume] in Serum or PlasmaOrdered By: Rosa Romo on 03-19-2023 ALP [Catalytic activity/Vol] 56 U/L 34-104 [facility] Aspartate aminotransferase [ Enzymatic activity/volume] in Serum or PlasmaOrdered By: Rosa Romo on 03-19-2023 AST [Catalytic activity/Vol] 19 U/L 13-39 [facility] Basophils Auto (Bld) [#/Vol] Ordered By: Rosa Romo on 03-19-2023 Basophils (Bld) [#/Vol] 0.1 10*3/uL 0.0-0.2 [facility] Basophils/100 WBC Auto (Bld) Ordered By: Rosa Romo on 03-19-2023 Basophils/100 WBC (Bld) 0.9 % . [facility] Bilirubin.total [Mass/volume ] in Serum or PlasmaOrdered By: Rosa Romo on 03-19-2023 Bilirubin [Mass/Vol] 1.4 mg/dL 0.3-1.0 [facility] Comment on above: Samples from patient s who have taken Naproxen have shown spurious elevation in Total Bilirubin levels. A metabolite of Naproxen, O-desmethylnaproxen, has been shown to interfere with the Pop-Adeel method for measuring Total Bilirubin. Calcium [Mass/volume] in Ser um or PlasmaOrdered By: Rosa Romo on 03-19-2023 Calcium [Mass/Vol] 9.7 mg/dL 8.6-10.3 [facility] Carbon dioxide, total [Moles /volume] in Serum or PlasmaOrdered By: Rosa Romo on 03-19-2023 CO2 [Moles/Vol] 31.9 mmol/L 21.0-31.0 [facility] Chloride [Moles/volume] in S anne or PlasmaOrdered By: Rosa Romo on 03-19-2023 Chloride [Moles/Vol] 104 mmol/L 98-107 [facility] Cholesterol [Mass/volume] in Serum or PlasmaOrdered By: Zeus Lamas on 03-19-2023 Cholesterol [Mass/Vol] 179 mg/dL 140-200 [facility] Comment on above: Chol less than 200 m g/dl low riskChol 201-239 mg/dl borderline riskChol 240 mg/dl and greater high risk Cholesterol in LDL Calc [Mas s/Vol]Ordered By: Zeus Lamas on 03-19-2023 Cholesterol in LDL [Mass/Vol] 123 mg/dL 0-100 [facility] Comment on above: LDL ATP III CLASSIFI CATIONLDL less than 100 mg/dL OptimalLDL 100-129 mg/dL Near or above optimalLDL 130-159 mg/dL Borderline highLDL 160-189 mg/dL HighLDL greater than 189 mg/dL Very high Cholesterol in VLDL Calc [Ma ss/Vol]Ordered By: Zeus Lamas on 03-19-2023 Cholesterol in VLDL [Mass/Vol] 12 mg/dL [facility] Comprehensive Metabolic Pane douglas 03-19-2023 Albumin [Mass/Vol] 4.5 g/dL Normal 3.5-5.7 [facility] Comment on above: Order Comment: PT FA STED 12 HOURS Performed By: #### S CAN CBC, CMP #### [facility] [address] Albumin/Globulin [Mass ratio] 2.0 {ratio} Normal [facility] Comment on above: Order Comment: PT FA STED 12 HOURS Performed By: #### S CAN CBC, CMP #### [address] ALP [Catalytic activity/Vol] 56 U/L Normal 34-104 [facility] Comment on above: Order Comment: PT FA STED 12 HOURS Performed By: #### S CAN CBC, CMP #### [address] ALT [Catalytic activity/Vol] 13 U/L Normal 7-52 [facility] Comment on above: Order Comment: PT FA STED 12 HOURS Performed By: #### S CAN CBC, CMP #### [facility] [address] [place] [address] Anion gap [Moles/Vol] 9.3 mmol/L Normal 6.0-15.0 [facility] Comment on above: Order Comment: PT FA STED 12 HOURS Performed By: #### S CAN CBC, CMP #### [address] AST [Catalytic activity/Vol] 19 U/L Normal 13-39 [facility] Comment on above: Order Comment: PT FA STED 12 HOURS Performed By: #### S CAN CBC, CMP #### [address] Bilirubin [Mass/Vol] 1.4 mg/dL High 0.3-1.0 [facility] Comment on above: Order Comment: PT FA STED 12 HOURS Result Comment: Samp les from patients who have taken Naproxen have shown spurious elevation in Total Bilirubin levels. A metabolite of Naproxen, O-desmethylnaproxen, has been shown to interfere with the Jendrassik-Grof method for measuring Total Bilirubin. Performed By: #### S CAN CBC, CMP #### [address] Calcium [Mass/Vol] 9.7 mg/dL Normal 8.6-10.3 [facility] Comment on above: Order Comment: PT FA STED 12 HOURS Performed By: #### S CAN CBC, CMP #### [address] Chloride [Moles/Vol] 104 mmol/L Normal 98-107 [facility] Comment on above: Order Comment: PT FA STED 12 HOURS Performed By: #### S CAN CBC, CMP #### [place] [address] [place] CO2 [Moles/Vol] 31.9 mmol/L High 21.0-31.0 [facility] Comment on above: Order Comment: PT FA STED 12 HOURS Performed By: #### S CAN CBC, CMP #### [place] [address] [place] Creatinine [Mass/Vol] 0.77 mg/dL Normal 0.60-1.20 [facility] Comment on above: Order Comment: PT FA STED 12 HOURS Performed By: #### S CAN CBC, CMP #### [place] [address] [place] Creatinine Clr Calc Pharmacy 76.42 Normal [facility] Comment on above: Order Comment: PT FA STED 12 HOURS Result Comment: PERF ORMED BY: [place] [address] PATHOLOGIST ASSISTANT OCEANOGRAPHER MIGUEL LARSEN M.D. Performed By: #### S CAN CBC, CMP #### [facility] [address] [place] [address] [place] GFR/1.73 sq M.predicted MDRD (S/P/Bld) [Vol rate/Area] mL/min/{1.73_m2} Normal [facility] Comment on above: Order Comment: PT FA STED 12 HOURS Performed By: #### S CAN CBC, CMP #### [facility] [address] [place] [address] [place] Globulin (S) [Mass/Vol] 2.2 g/dL Normal [facility] Comment on above: Order Comment: PT FA STED 12 HOURS Performed By: #### S CAN CBC, CMP #### [address] Glucose [Mass/Vol] 79 mg/dL Normal 70-100 [facility] Comment on above: Order Comment: PT FA STED 12 HOURS Result Comment: [place] Glucose Reference Range is dependent on time and content of last meal. Glucose of more than 200 mg/dL in a nonstressed, ambulatory subject supports the diagnosis of Diabetes Mellitus. ADA recommended reference range Performed By: #### S CAN CBC, CMP #### [place] [address] [place] Potassium [Moles/Vol] 4.2 mmol/L Normal 3.5-5.1 [facility] Comment on above: Order Comment: PT FA STED 12 HOURS Performed By: #### S CAN CBC, CMP #### [place] [address] [place] Protein [Mass/Vol] 6.7 g/dL Normal 6.4-8.9 [facility] Comment on above: Order Comment: PT FA STED 12 HOURS Performed By: #### S CAN CBC, CMP #### [place] [address] [place] Sodium [Moles/Vol] 141 mmol/L Normal 136-145 [facility] Comment on above: Order Comment: PT FA STED 12 HOURS Performed By: #### S CAN CBC, CMP #### [place] [address] [place] Urea nitrogen [Mass/Vol] 13 mg/dL Normal 7-25 [facility] Comment on above: Order Comment: PT FA STED 12 HOURS Performed By: #### S CAN CBC, CMP #### [facility] [address] Creatinine [Mass/volume] in Serum or PlasmaOrdered By: Rosa Romo on 03-19-2023 Creatinine [Mass/Vol] 0.77 mg/dL 0.60-1.20 [facility] Eosinophils Auto (Bld) [#/Vo l]Ordered By: Rosa Romo on 03-19-2023 Eosinophils (Bld) [#/Vol] 0.3 10*3/uL 0.0-0.45 [facility] Eosinophils/100 WBC Auto (Bl d)Ordered By: Rosa Romo on 03-19-2023 Eosinophils/100 WBC (Bld) 4.9 % . [facility] Erythrocyte distribution wid th Auto (RBC) [Ratio]Ordered By: Rosa Romo on 03-19-2023 Erythrocyte distribution width (RBC) [Ratio] 15.4 % 11.9-15.3 [facility] Globulin Calc (S) [Mass/Vol] Ordered By: Rosa Romo on 03-19-2023 Globulin (S) [Mass/Vol] 2.2 g/dL [facility] Glucose [Mass/volume] in Ser um or PlasmaOrdered By: Rosa Romo on 03-19-2023 Glucose [Mass/Vol] 79 mg/dL 70-100 [facility] Comment on above: ADA recommended refe rence rangeRandom Glucose Reference Range is dependent on time and content of last meal. Glucose of more than 200 mg/dL in a nonstressed, ambulatory subject supports the diagnosis of Diabetes Mellitus. Hematocrit Auto (Bld) [Volum e fraction]Ordered By: Rosa Romo on 03-19-2023 Hematocrit (Bld) [Volume fraction] 41.5 % 34.0-46.4 [facility] Hemoglobin [Mass/volume] in BloodOrdered By: Rosa Romo on 03-19-2023 Hemoglobin (Bld) [Mass/Vol] 13.7 g/dL 11.8-15.4 [facility] Leukocytes [#/volume] correc prema for nucleated erythrocytes in Blood by Automated counOrdered By: Rosa Romo on 03-19-2023 WBC corrected for nucl RBC Auto (Bld) [#/Vol] 6.5 10*3/uL 3.8-11.6 [facility] Lipid Panelon 03-19-2023 Cholesterol [Mass/Vol] 179 mg/dL Normal 140-200 [facility] Comment on above: Order Comment: PT FA STED 12 HOURS Result Comment: Chol less than 200 mg/dl low risk Chol 201-239 mg/dl borderline risk Chol 240 mg/dl and greater high risk Performed By: #### L IPID #### [facility] [address] [place] [id number] [place] Cholesterol in HDL [Mass/Vol] 44 mg/dL Normal 23-92 [facility] Comment on above: Order Comment: PT FA STED 12 HOURS Result Comment: HDL CHOL ATP-III CLASSIFICATION Cardiovascular Risk HDL > or equal to 60 mg/dL LOW HDL < 40 mg/dL HIGH Performed By: #### L IPID #### [facility] [address] [place] [address] [place] Cholesterol.total/Chol esterol in HDL [Mass ratio] 4.1 {ratio} Normal <5.0 [facility] Comment on above: Order Comment: PT FA STED 12 HOURS Result Comment: PERF ORMED BY: [place] [address] PATHOLOGIST ASSISTANT OCEANOGRAPHER MIGUEL LARSEN M.D. Performed By: #### L IPID #### [facility] [address] [place] [id number] [place] LDL Cholesterol,Calculated 123 mg/dL High 0-100 [facility] Comment on above: Order Comment: PT FA STED 12 HOURS Result Comment: LDL ATP III CLASSIFICATION LDL less than 100 mg/dL Optimal LDL 100-129 mg/dL Near or above optimal LDL 130-159 mg/dL Borderline high LDL 160-189 mg/dL High LDL greater than 189 mg/dL Very high Performed By: #### L IPID #### [facility] [address] [place] [address] [place] Triglyceride w/Reflex 62 mg/dL Normal 0-149 [facility] Comment on above: Order Comment: PT FA STED 12 HOURS Result Comment: TRIG ATP III CLASSIFICATION TRIG less than 150 mg/dL Normal TRIG 150-199 mg/dL Borderline high TRIG 200-500 mg/dL High TRIG greater than 500 mg/dL Very high Standard traceable to the Center for Disease Conrtrol and Prevention (CDC) test method. Performed By: #### L IPID #### [facility] [address] VLDL CHOLESTEROL 12 mg/dL Normal [facility] Comment on above: Order Comment: PT FA STED 12 HOURS Performed By: #### L IPID #### [facility] [address] Lymphocytes Auto (Bld) [#/Vo l]Ordered By: Rosa Romo on 03-19-2023 Lymphocytes (Bld) [#/Vol] 2.1 10*3/uL 1.00-4.8 [facility] Lymphocytes/100 WBC Auto (Bl d)Ordered By: Rosa Romo on 03-19-2023 Lymphocytes/100 WBC (Bld) 32.8 % . [facility] MCH Auto (RBC) [Entitic mass ]Ordered By: Rosa Romo on 03-19-2023 MCH (RBC) [Entitic mass] 28.8 pg 24.7-34.3 [facility] MCHC Auto (RBC) [Mass/Vol]Or dered By: Rosa Romo on 03-19-2023 MCHC (RBC) [Mass/Vol] 33.1 g/dL 32.0-35.0 [facility] MCV Auto (RBC) [Entitic vol] Ordered By: Rosa Romo on 03-19-2023 MCV (RBC) [Entitic vol] 87.1 fL 80-100 [facility] Monocytes Auto (Bld) [#/Vol] Ordered By: Rosa Romo on 03-19-2023 Monocytes (Bld) [#/Vol] 0.5 10*3/uL 0.0-0.8 [facility] Monocytes/100 WBC Auto (Bld) Ordered By: Rosa Romo on 03-19-2023 Monocytes/100 WBC (Bld) 7.3 % . [facility] Neutrophils Auto (Bld) [#/Vo l]Ordered By: Rosa Romo on 03-19-2023 Neutrophils (Bld) [#/Vol] 3.5 10*3/uL 1.8-7.7 [facility] Neutrophils/100 WBC Auto (Bl d)Ordered By: Rosa Romo on 03-19-2023 Neutrophils/100 WBC (Bld) 54.1 % . [facility] No Panel InformationOrdered By: Rosa Romo on 03-19-2023 Estimated GFR (CKD-EPI) > 60.0 mL/Min [facility] Creatinine Clearance (Chem 76.42 [facility] Nucleated erythrocytes [Pres ence] in Blood by Automated countOrdered By: Rosa Romo on 03-19-2023 Nucleated RBC Auto Ql (Bld) 0.0 /100{WBC} 0-0.5 [facility] Platelet adequacy [Presence] in Blood by Light microscopyOrdered By: Rosa Romo on 03-19-2023 Platelets LM Ql (Bld) Increased Normal [facility] Platelet mean volume Auto (B ld) [Entitic vol]Ordered By: Rosa Romo on 03-19-2023 Platelet mean volume (Bld) [Entitic vol] 8.5 fL 6.3-10.7 [facility] Platelet morphology finding [Identifier] in BloodOrdered By: Rosa Romo on 03-19-2023 Platelet morphology finding Nom (Bld) Normal Normal [facility] Platelets Auto (Bld) [#/Vol] Ordered By: Rosa Romo on 03-19-2023 Platelets (Bld) [#/Vol] 537 10*3/uL 150-450 [facility] Potassium [Moles/volume] in Serum or PlasmaOrdered By: Rosa Romo on 03-19-2023 Potassium [Moles/Vol] 4.2 mmol/L 3.5-5.1 [facility] Protein [Mass/volume] in Ser um or PlasmaOrdered By: Rosa Romo on 03-19-2023 Protein [Mass/Vol] 6.7 g/dL 6.4-8.9 [facility] RBC Auto (Bld) [#/Vol]Ordere d By: Rosa Romo on 03-19-2023 RBC (Bld) [#/Vol] 4.76 10*6/uL 3.60-5.00 [facility] RBC morphologyOrdered By: Rosie Romo on 03-19-2023 RBC morphology finding Nom (Bld) Normal Normal [facility] Scan and CBCon 03-19-2023 Basophils (Bld) [#/Vol] 0.1 10*3/uL Normal 0.0-0.2 [facility] Comment on above: Performed By: #### S CAN CBC, CMP #### [facility] [address] [place] [address] [place] Basophils/100 WBC (Bld) 0.9 % Normal . [facility] Comment on above: Performed By: #### S CAN CBC, CMP #### [facility] [address] [place] [address] [place] Eosinophils (Bld) [#/Vol] 0.3 10*3/uL Normal 0.0-0.45 [facility] Comment on above: Performed By: #### S CAN CBC, CMP #### [facility] [address] [place] [id number] [place] Eosinophils/100 WBC (Bld) 4.9 % Normal . [facility] Comment on above: Performed By: #### S CAN CBC, CMP #### [facility] [address] Erythrocyte distribution width (RBC) [Ratio] 15.4 % High 11.9-15.3 [facility] Comment on above: Performed By: #### S CAN CBC, CMP #### [facility] [address] [place] [id number] [place] Hematocrit (Bld) [Volume fraction] 41.5 % Normal 34.0-46.4 [facility] Comment on above: Performed By: #### S CAN CBC, CMP #### [facility] [facility] [address] [place] [address] [place] Hemoglobin (Bld) [Mass/Vol] 13.7 g/dL Normal 11.8-15.4 [facility] Comment on above: Performed By: #### S CAN CBC, CMP #### [facility] [address] Lymphocytes (Bld) [#/Vol] 2.1 10*3/uL Normal 1.00-4.8 [facility] Comment on above: Performed By: #### S CAN CBC, CMP #### [address] Lymphocytes/100 WBC (Bld) 32.8 % Normal . [facility] Comment on above: Performed By: #### S CAN CBC, CMP #### [address] MCH (RBC) [Entitic mass] 28.8 pg Normal 24.7-34.3 [facility] Comment on above: Performed By: #### S CAN CBC, CMP #### [address] MCV (RBC) [Entitic vol] 87.1 fL Normal 80-100 [facility] Comment on above: Performed By: #### S CAN CBC, CMP #### [address] Mean Corpuscular HGB Conc 33.1 g/dL Normal 32.0-35.0 [facility] Comment on above: Performed By: #### S CAN CBC, CMP #### [address] Monocytes (Bld) [#/Vol] 0.5 10*3/uL Normal 0.0-0.8 [facility] Comment on above: Performed By: #### S CAN CBC, CMP #### [place] [address] [place] Monocytes/100 WBC (Bld) 7.3 % Normal . [facility] Comment on above: Performed By: #### S CAN CBC, CMP #### [address] Neutrophils (Bld) [#/Vol] 3.5 10*3/uL Normal 1.8-7.7 [facility] Comment on above: Performed By: #### S CAN CBC, CMP #### [address] Neutrophils/100 WBC (Bld) 54.1 % Normal . [facility] Comment on above: Performed By: #### S CAN CBC, CMP #### [address] NRBC% 0.0 /100{WBC} Normal 0-0.5 [facility] Comment on above: Performed By: #### S CAN CBC, CMP #### [address] Platelet Estimate Increased Normal Normal [facility] Comment on above: Performed By: #### S CAN CBC, CMP #### [address] Platelet mean volume (Bld) [Entitic vol] 8.5 fL Normal 6.3-10.7 [facility] Comment on above: Performed By: #### S CAN CBC, CMP #### [address] Platelet Morphology Normal Normal Normal [facility] Comment on above: Result Comment: PERF ORMED BY: [place] [address] PATHOLOGIST ASSISTANT OCEANOGRAPHER MIGUEL LARSEN M.D. Performed By: #### S CAN CBC, CMP #### [address] Platelets (Bld) [#/Vol] 537 10*3/uL High 150-450 [facility] Comment on above: Performed By: #### S CAN CBC, CMP #### [address] RBC (Bld) [#/Vol] 4.76 10*6/uL Normal 3.60-5.00 [facility] Comment on above: Performed By: #### S CAN CBC, CMP #### [address] RBC morphology finding Nom (Bld) Normal Normal Normal [facility] Comment on above: Performed By: #### S CAN CBC, CMP #### [facility] [address] WBC (Bld) [#/Vol] 6.5 10*3/uL Normal 3.8-11.6 [facility] Comment on above: Performed By: #### S CAN CBC, CMP #### [facility] [address] Serum or plasma albumin/glob ulin mass ratioOrdered By: Rosa Romo on 03-19-2023 Albumin/Globulin [Mass ratio] 2.0 {ratio} [facility] Serum or plasma anion gap de terminationOrdered By: Rosa Romo on 03-19-2023 Anion gap [Moles/Vol] 9.3 mmol/L 6.0-15.0 [facility] Serum or plasma high density lipoprotein (HDL) cholesterol measurementOrdered By: Zeus Lamas on 03-19-2023 Cholesterol in HDL [Mass/Vol] 44 mg/dL [facility] Comment on above: HDL CHOL ATP-III CLA SSIFICATION Cardiovascular RiskHDL > or equal to 60 mg/dL LOWHDL < 40 mg/dL HIGH Serum or plasma total choles terol/high density lipoprotein (HDL) cholesterol mass ratOrdered By: Zeus Lamas on 03-19-2023 Cholesterol.total/Chol esterol in HDL [Mass ratio] 4.1 {ratio} <5.0 [facility] Sodium [Moles/volume] in Ser um or PlasmaOrdered By: Rosa Romo on 03-19-2023 Sodium [Moles/Vol] 141 mmol/L 136-145 [facility] Triglyceride [Mass/volume] i n Serum or PlasmaOrdered By: Zeus Lamas on 03-19-2023 Triglyceride [Mass/Vol] 62 mg/dL 0-149 [facility] Comment on above: TRIG ATP III CLASSIF ICATIONTRIG less than 150 mg/dL NormalTRIG 150-199 mg/dL Borderline highTRIG 200-500 mg/dL High TRIG greater than 500 mg/dL Very highStandard traceable to the Center for Disease Conrtrol and Prevention (CDC) test method. Urea nitrogen [Mass/volume] in Serum or PlasmaOrdered By: Rosa Romo on 03-19-2023 Urea nitrogen [Mass/Vol] 13 mg/dL 7 [facility] WBC Auto (Bld) [#/Vol]Ordere d By: Rosa Romo on 03-19-2023 WBC (Bld) [#/Vol] 6.5 10*3/uL 3.8-11.6 [facility] Complete Blood Count Auto Di ffon 09-22-2022 Basophils (Bld) [#/Vol] 0.1 10*3/uL Normal 0.0-0.2 [facility] Comment on above: Result Comment: PERF ORMED BY: [place] [address] PATHOLOGIST ASSISTANT OCEANOGRAPHER MIGUEL LARSEN M.D. Performed By: #### C BC #### [address] Basophils/100 WBC (Bld) 0.7 % Normal . [facility] Comment on above: Performed By: #### C BC #### [address] Eosinophils (Bld) [#/Vol] 0.3 10*3/uL Normal 0.0-0.45 [facility] Comment on above: Performed By: #### C BC #### [address] Eosinophils/100 WBC (Bld) 4.4 % Normal . [facility] Comment on above: Performed By: #### C BC #### [address] Erythrocyte distribution width (RBC) [Ratio] 14.7 % Normal 11.9-15.3 [facility] Comment on above: Performed By: #### C BC #### [address] Hematocrit (Bld) [Volume fraction] 42.0 % Normal 34.0-46.4 [facility] Comment on above: Performed By: #### C BC #### [address] Hemoglobin (Bld) [Mass/Vol] 13.7 g/dL Normal 11.8-15.4 [facility] Comment on above: Performed By: #### C BC #### [address] Lymphocytes (Bld) [#/Vol] 1.8 10*3/uL Normal 1.00-4.8 [facility] Comment on above: Performed By: #### C BC #### [address] Lymphocytes/100 WBC (Bld) 22.7 % Normal . [facility] Comment on above: Performed By: #### C BC #### [address] MCH (RBC) [Entitic mass] 28.8 pg Normal 24.7-34.3 [facility] Comment on above: Performed By: #### C BC #### [address] MCV (RBC) [Entitic vol] 88.4 fL Normal 80-100 [facility] Comment on above: Performed By: #### C BC #### [address] Mean Corpuscular HGB Conc 32.6 g/dL Normal 32.0-35.0 [facility] Comment on above: Performed By: #### C BC #### [address] Monocytes (Bld) [#/Vol] 0.5 10*3/uL Normal 0.0-0.8 [facility] Comment on above: Performed By: #### C BC #### [address] Monocytes/100 WBC (Bld) 6.5 % Normal . [facility] Comment on above: Performed By: #### C BC #### [address] Neutrophils (Bld) [#/Vol] 5.1 10*3/uL Normal 1.8-7.7 [facility] Comment on above: Performed By: #### C BC #### [facility] [address] Neutrophils/100 WBC (Bld) 65.7 % Normal . [facility] Comment on above: Performed By: #### C BC #### [facility] [address] NRBC% 0.1 /100{WBC} Normal 0-0.5 [facility] Comment on above: Performed By: #### C BC #### [address] Platelet mean volume (Bld) [Entitic vol] 8.5 fL Normal 6.3-10.7 [facility] Comment on above: Performed By: #### C BC #### [address] Platelets (Bld) [#/Vol] 551 10*3/uL High 150-450 [facility] Comment on above: Performed By: #### C BC #### [address] RBC (Bld) [#/Vol] 4.75 10*6/uL Normal 3.60-5.00 [facility] Comment on above: Performed By: #### C BC #### [address] WBC (Bld) [#/Vol] 7.7 10*3/uL Normal 3.8-11.6 [facility] Comment on above: Performed By: #### C BC #### [place] [address] [place] Basophils Auto (Bld) [#/Vol] Ordered By: Rosa Romo on 03-22-2022 Basophils (Bld) [#/Vol] 0.1 10*3/uL 0.0-0.2 [facility] Basophils/100 WBC Auto (Bld) Ordered By: Rosa Romo on 03-22-2022 Basophils/100 WBC (Bld) 0.9 % . [facility] Body fluid albumin measureme nt (mass/volume)Ordered By: Rosa Romo on 03-22-2022 Albumin (Body fld) [Mass/Vol] 4.3 g/dL 3.2-5.5 [facility] Creatinine and Glomerular fi ltration rate.predicted panel (S/P/Bld)Ordered By: Rosa Romo on 03-22-2022 Creatinine [Mass/Vol] 0.79 mg/dL 0.44-1.03 [facility] Eosinophils Auto (Bld) [#/Vo l]Ordered By: Rosa Romo on 03-22-2022 Eosinophils (Bld) [#/Vol] 0.2 10*3/uL 0.0-0.45 [facility] Eosinophils/100 WBC Auto (Bl d)Ordered By: Rosa Romo on 03-22-2022 Eosinophils/100 WBC (Bld) 2.4 % . [facility] Erythrocyte distribution wid th Auto (RBC) [Ratio]Ordered By: Rosa Romo on 03-22-2022 Erythrocyte distribution width (RBC) [Ratio] 14.7 % 11.9-15.3 [facility] Estimated glomerular filtrat ion rate (GFR) non- AmericanOrdered By: Rosa Romo on 03-22-2022 GFR/1.73 sq M.predicted among non-blacks MDRD (S/P/Bld) [Vol rate/Area] > 60 mL/Min [facility] Globulin Calc (S) [Mass/Vol] Ordered By: Rosa Romo on 03-22-2022 Globulin (S) [Mass/Vol] 2.2 g/dL [facility] Hematocrit Auto (Bld) [Volum e fraction]Ordered By: Rosa Romo on 03-22-2022 Hematocrit (Bld) [Volume fraction] 41.9 % 34.0-46.4 [facility] Hemoglobin [Mass/volume] in BloodOrdered By: Rosa Romo on 03-22-2022 Hemoglobin (Bld) [Mass/Vol] 13.6 g/dL 11.8-15.4 [facility] - Hematology and Cell countsOrdered By: Rosa Romo on 03-22-2022 Nucleated RBC/100 WBC (Bld) [Ratio] 0.0 % 0-0.5 [facility] Leukocytes [#/volume] in Blo od by Automated countOrdered By: Rosa Romo on 03-22-2022 WBC (Bld) [#/Vol] 8.0 10*3/uL 4.5-11.0 [facility] Lymphocytes Auto (Bld) [#/Vo l]Ordered By: Rosa Romo on 03-22-2022 Lymphocytes (Bld) [#/Vol] 2.0 10*3/uL 1.00-4.8 [facility] Lymphocytes/100 WBC Auto (Bl d)Ordered By: Rosa Romo on 03-22-2022 Lymphocytes/100 WBC (Bld) 24.9 % . [facility] MCH Auto (RBC) [Entitic mass ]Ordered By: Rosa Romo on 03-22-2022 MCH (RBC) [Entitic mass] 29.4 pg 24.7-34.3 [facility] MCHC Auto (RBC) [Mass/Vol]Or dered By: Rosa Romo on 03-22-2022 MCHC (RBC) [Mass/Vol] 32.5 g/dL 32.0-35.0 [facility] MCV Auto (RBC) [Entitic vol] Ordered By: Rosa Romo on 03-22-2022 MCV (RBC) [Entitic vol] 90.4 fL 80-100 [facility] Monocytes Auto (Bld) [#/Vol] Ordered By: Rosa Romo on 03-22-2022 Monocytes (Bld) [#/Vol] 0.4 10*3/uL 0.0-0.8 [facility] Monocytes/100 WBC Auto (Bld) Ordered By: Rosa Romo on 03-22-2022 Monocytes/100 WBC (Bld) 5.2 % . [facility] Neutrophils Auto (Bld) [#/Vo l]Ordered By: Rosa Romo on 03-22-2022 Neutrophils (Bld) [#/Vol] 5.3 10*3/uL 1.8-7.7 [facility] Neutrophils/100 WBC Auto (Bl d)Ordered By: Rosa Romo on 03-22-2022 Neutrophils/100 WBC (Bld) 66.6 % . [facility] No Panel InformationOrdered By: Rosa Romo on 03-22-2022 Estimated GFR () > 60 mL/Min [facility] Comment on above: GFR estimated refere nce range: According to KDOQI guidelines, <60 ml/min/1.73m2 is sufficient to diagnose a patient with chronic kidney disease. Pharmacy Creatinine Clearance (Chem 75.44 [facility] Platelet mean volume Auto (B ld) [Entitic vol]Ordered By: Rosa Romo on 03-22-2022 Platelet mean volume (Bld) [Entitic vol] 8.3 fL 6.3-10.7 [facility] Platelets Auto (Bld) [#/Vol] Ordered By: Rosa Romo on 03-22-2022 Platelets (Bld) [#/Vol] 506 10*3/uL 150-450 [facility] Protein [Mass/volume] in Ser um or PlasmaOrdered By: Rosa Romo on 03-22-2022 Protein [Mass/Vol] 6.5 g/dL 6.1-7.9 [facility] RBC Auto (Bld) [#/Vol]Ordere d By: Rosa Romo on 03-22-2022 RBC (Bld) [#/Vol] 4.63 10*6/uL 3.60-5.00 [facility] Serum or plasma alanine black otransferase measurement without P-5'-P (enzymatic activiOrdered By: Rosa Romo on 03-22-2022 ALT No additional P-5'-P [Catalytic activity/Vol] 17 U/L 10-60 [facility] Serum or plasma albumin/glob ulin mass ratioOrdered By: Rosa Romo on 03-22-2022 Albumin/Globulin [Mass ratio] 2.0 {ratio} [facility] Serum or plasma alkaline laurie sphatase measurement (enzymatic activity/volume)Ordered By: Rosa Romo on 03-22-2022 ALP [Catalytic activity/Vol] 56 U/L 32-92 [facility] Serum or plasma anion gap de terminationOrdered By: Rosa Romo on 03-22-2022 Anion gap [Moles/Vol] 11.6 mmol/L 6.0-15.0 [facility] Serum or plasma aspartate am inotransferase measurement (enzymatic activity/volume)Ordered By: Rosa Romo on 03-22-2022 AST [Catalytic activity/Vol] 22 U/L 10-42 [facility] Serum or plasma calcium los urement (mass/volume)Ordered By: Rosa Romo on 03-22-2022 Calcium [Mass/Vol] 9.7 mg/dL 8.2-10.2 [facility] Serum or plasma chloride theresa surement (moles/volume)Ordered By: Rosa Romo on 03-22-2022 Chloride [Moles/Vol] 100 mmol/L 95-114 [facility] Serum or plasma glucose los urement (mass/volume)Ordered By: Rosa Romo on 03-22-2022 Glucose [Mass/Vol] 123 mg/dL 70-100 [facility] Comment on above: ADA recommended refe rence rangeRandom Glucose Reference Range is dependent on time and content of last meal. Glucose of more than 200 mg/dL in a nonstressed, ambulatory subject supports the diagnosis of Diabetes Mellitus. Serum or plasma potassium me asurement (moles/volume)Ordered By: Rosa Romo on 03-22-2022 Potassium [Moles/Vol] 4.4 mmol/L 3.5-5.1 [facility] Serum or plasma sodium measu rement (moles/volume)Ordered By: Rosa Romo on 03-22-2022 Sodium [Moles/Vol] 137 mmol/L 136-146 [facility] Serum or plasma total biliru bin measurement (mass/volume)Ordered By: Rosa Romo on 03-22-2022 Bilirubin [Mass/Vol] 1.8 mg/dL 0.3-1.2 [facility] Comment on above: Samples from patient s who have taken Naproxen have shown spurious elevation in Total Bilirubin levels. A metabolite of Naproxen, O-desmethylnaproxen, has been shown to interfere with the Pop-Adeel method for measuring Total Bilirubin. Serum or plasma total carbon dioxide measurement (moles/volume)Ordered By: Rosa Romo on 03-22-2022 CO2 [Moles/Vol] 29.8 mmol/L 22.0-30.0 [facility] Serum or plasma urea nitroge n measurement (mass/volume)Ordered By: Rosa Romo on 03-22-2022 Urea nitrogen [Mass/Vol] 12 mg/dL 9- [facility] Basophils Auto (Bld) [#/Vol] Ordered By: Rosa Romo on 12-20-2021 Basophils (Bld) [#/Vol] 0.0 10*3/uL 0.0-0.2 [facility] Basophils/100 WBC Auto (Bld) Ordered By: Rosa Romo on 12-20-2021 Basophils/100 WBC (Bld) 0.7 % . [facility] Blood hemoglobin measurement (mass/volume)Ordered By: Rosa Romo on 12-20-2021 Hemoglobin (Bld) [Mass/Vol] 13.6 g/dL 11.8-15.4 [facility] Blood leukocytes automated c ount (number/volume)Ordered By: Rosa Romo on 12-20-2021 WBC (Bld) [#/Vol] 6.3 10*3/uL 4.5-11.0 [facility] Body fluid albumin measureme nt (mass/volume)Ordered By: Rosa Romo on 12-20-2021 Albumin (Body fld) [Mass/Vol] 4.7 g/dL 3.2-5.[address] [facility] [address] biopsyOrdered By: Rosa Galindo se on 12-20-2021 Transferrin [Mass/Vol] 258 mg/dL 180-380 [facility] Cholesterol [Mass/volume] in Serum or PlasmaOrdered By: Zeus Lamas on 12-20-2021 Cholesterol [Mass/Vol] 175 mg/dL 140-200 [facility] Comment on above: Chol less than 200 m g/dl low risk Chol 201-239 mg/dl borderline risk Chol 240 mg/dl and greater high risk Cholesterol in LDL Calc [Mas s/Vol]Ordered By: Zeus Lamas on 12-20-2021 Cholesterol in LDL [Mass/Vol] 119 mg/dL 0-100 [facility] Comment on above: LDL ATP III CLASSIFI CATION LDL less than 100 mg/dL Optimal LDL 100-129 mg/dL Near or above optimal LDL 130-159 mg/dL Borderline high LDL 160-189 mg/dL High LDL greater than 189 mg/dL Very high Cholesterol in VLDL Calc [Ma ss/Vol]Ordered By: Zeus Lamas on 12-20-2021 Cholesterol in VLDL [Mass/Vol] 11 mg/dL [facility] Creatinine and Glomerular fi ltration rate.predicted panel (S/P/Bld)Ordered By: Rosa Romo on 12-20-2021 Creatinine [Mass/Vol] 0.78 mg/dL 0.44-1.03 [facility] Eosinophils Auto (Bld) [#/Vo l]Ordered By: Rosa Romo on 12-20-2021 Eosinophils (Bld) [#/Vol] 0.2 10*3/uL 0.0-0.45 [facility] Eosinophils/100 WBC Auto (Bl d)Ordered By: Rosa Romo on 12-20-2021 Eosinophils/100 WBC (Bld) 2.9 % . [facility] Erythrocyte distribution wid th Auto (RBC) [Ratio]Ordered By: Rosa Romo on 12-20-2021 Erythrocyte distribution width (RBC) [Ratio] 15.6 % 11.9-15.3 [facility] Estimated glomerular filtrat ion rate (GFR) non- AmericanOrdered By: Rosa Romo on 12-20-2021 GFR/1.73 sq M.predicted among non-blacks MDRD (S/P/Bld) [Vol rate/Area] > 60 mL/Min [facility] Ferritin [Mass/volume] in Se rum or PlasmaOrdered By: Rosa Romo on 12-20-2021 Ferritin [Mass/Vol] 278.9 ng/mL 11-306.8 [facility] Globulin Calc (S) [Mass/Vol] Ordered By: Rosa Romo on 12-20-2021 Globulin (S) [Mass/Vol] 2.2 g/dL [facility] Hematocrit Auto (Bld) [Volum e fraction]Ordered By: Rosa Romo on 12-20-2021 Hematocrit (Bld) [Volume fraction] 41.2 % 34.0-46.4 [facility] Iron [Mass/volume] in Serum or PlasmaOrdered By: Rosa Romo on 12-20-2021 Iron [Mass/Vol] 90 ug/dL 40-150 [facility] Iron binding capacity [Mass/ volume] in Serum or PlasmaOrdered By: Rosa Romo on 12-20-2021 Iron binding capacity [Mass/Vol] 361 ug/dL 255-450 [facility] Iron saturation [Mass Fracti on] in Serum or PlasmaOrdered By: Rosa Romo on 12-20-2021 Iron saturation [Mass fraction] 24.0 % 20-50 [facility] - Hematology and Cell countsOrdered By: Rosa Romo on 12-20-2021 Nucleated RBC/100 WBC (Bld) [Ratio] 0.0 % 0-0.5 [facility] Lymphocytes Auto (Bld) [#/Vo l]Ordered By: Rosa Romo on 12-20-2021 Lymphocytes (Bld) [#/Vol] 1.7 10*3/uL 1.00-4.8 [facility] Lymphocytes/100 WBC Auto (Bl d)Ordered By: Rosa Romo on 12-20-2021 Lymphocytes/100 WBC (Bld) 26.9 % . [facility] MCH Auto (RBC) [Entitic mass ]Ordered By: Rosa Romo on 12-20-2021 MCH (RBC) [Entitic mass] 29.8 pg 24.7-34.3 [facility] MCHC Auto (RBC) [Mass/Vol]Or dered By: Roas Romo on 12-20-2021 MCHC (RBC) [Mass/Vol] 33.1 g/dL 32.0-35.0 [facility] MCV Auto (RBC) [Entitic vol] Ordered By: Rosa Romo on 12-20-2021 MCV (RBC) [Entitic vol] 90.0 fL 80-100 [facility] Monocytes Auto (Bld) [#/Vol] Ordered By: Rosa Romo on 12-20-2021 Monocytes (Bld) [#/Vol] 0.4 10*3/uL 0.0-0.8 [facility] Monocytes/100 WBC Auto (Bld) Ordered By: Rosa Romo on 12-20-2021 Monocytes/100 WBC (Bld) 6.3 % . [facility] Neutrophils Auto (Bld) [#/Vo l]Ordered By: Rosa Romo on 12-20-2021 Neutrophils (Bld) [#/Vol] 4.0 10*3/uL 1.8-7.7 [facility] Neutrophils/100 WBC Auto (Bl d)Ordered By: Rosa Romo on 12-20-2021 Neutrophils/100 WBC (Bld) 63.2 % . [facility] No Panel InformationOrdered By: Rosa Romo on 12-20-2021 Estimated GFR () > 60 mL/Min [facility] Comment on above: GFR estimated refere nce range: According to KDOQI guidelines, <60 ml/min/1.73m2 is sufficient to diagnose a patient with chronic kidney disease. Pharmacy Creatinine Clearance (Chem 76.40 [facility] Platelet mean volume Auto (B ld) [Entitic vol]Ordered By: Rosa Romo on 12-20-2021 Platelet mean volume (Bld) [Entitic vol] 8.5 fL 6.3-10.7 [facility] Platelets Auto (Bld) [#/Vol] Ordered By: Rosa Romo on 12-20-2021 Platelets (Bld) [#/Vol] 527 10*3/uL 150-450 [facility] Protein [Mass/volume] in Ser um or PlasmaOrdered By: Rosa Romo on 12-20-2021 Protein [Mass/Vol] 6.9 g/dL 6.1-7.9 [facility] RBC Auto (Bld) [#/Vol]Ordere d By: Rosa Romo on 12-20-2021 RBC (Bld) [#/Vol] 4.58 10*6/uL 3.60-5.00 [facility] Serum or plasma alanine black otransferase measurement without P-5'-P (enzymatic activiOrdered By: Rosa Romo on 12-20-2021 ALT No additional P-5'-P [Catalytic activity/Vol] 22 U/L 10-60 [facility] Serum or plasma albumin/glob ulin mass ratioOrdered By: Rosa Romo on 12-20-2021 Albumin/Globulin [Mass ratio] 2.1 {ratio} [facility] Serum or plasma alkaline laurie sphatase measurement (enzymatic activity/volume)Ordered By: Rosa Romo on 12-20-2021 ALP [Catalytic activity/Vol] 52 U/L 32-92 [facility] Serum or plasma aspartate am inotransferase measurement (enzymatic activity/volume)Ordered By: Rosa Romo on 12-20-2021 AST [Catalytic activity/Vol] 24 U/L 10-42 [facility] Serum or plasma calcium los urement (mass/volume)Ordered By: Rosa Romo on 12-20-2021 Calcium [Mass/Vol] 9.9 mg/dL 8.2-10.2 [facility] Serum or plasma chloride theresa surement (moles/volume)Ordered By: Rosa Romo on 12-20-2021 Chloride [Moles/Vol] 100 mmol/L 95-114 [facility] Serum or plasma glucose los urement (mass/volume)Ordered By: Rosa Romo on 12-20-2021 Glucose [Mass/Vol] 89 mg/dL 70-100 [facility] Comment on above: ADA recommended refe rence range Random Glucose Reference Range is dependent on time and content of last meal. Glucose of more than 200 mg/dL in a nonstressed, ambulatory subject supports the diagnosis of Diabetes Mellitus. Serum or plasma high density lipoprotein (HDL) cholesterol measurementOrdered By: Zeus Lamas on 12-20-2021 Cholesterol in HDL [Mass/Vol] 45 mg/dL 35-85 [facility] Comment on above: HDL CHOL ATP-III CLA SSIFICATION Cardiovascular Risk HDL > or equal to 60 mg/dL LOW HDL < 40 mg/dL HIGH Serum or plasma potassium me asurement (moles/volume)Ordered By: Rosa Romo on 12-20-2021 Potassium [Moles/Vol] 4.0 mmol/L 3.5-5.1 [facility] Serum or plasma sodium measu rement (moles/volume)Ordered By: Rosa Romo on 12-20-2021 Sodium [Moles/Vol] 138 mmol/L 136-146 [facility] Serum or plasma total biliru bin measurement (mass/volume)Ordered By: Rosa Romo on 12-20-2021 Bilirubin [Mass/Vol] 1.4 mg/dL 0.3-1.2 [facility] Comment on above: Samples from patient s who have taken Naproxen have shown spurious elevation in Total Bilirubin levels. A metabolite of Naproxen, O-desmethylnaproxen, has been shown to interfere with the Jenjesenia-Adeel method for measuring Total Bilirubin. Serum or plasma total carbon dioxide measurement (moles/volume)Ordered By: Rosa Romo on 12-20-2021 CO2 [Moles/Vol] 30.2 mmol/L 22.0-30.0 [facility] Serum or plasma total choles terol/high density lipoprotein (HDL) cholesterol mass ratOrdered By: Zeus Lamas on 12-20-2021 Cholesterol.total/Chol esterol in HDL [Mass ratio] 3.9 {ratio} <5.0 [facility] Serum or plasma urea nitroge n measurement (mass/volume)Ordered By: Rosa Romo on 12-20-2021 Urea nitrogen [Mass/Vol] 9 mg/dL 9-23 [facility] Triglyceride [Mass/volume] i n Serum or PlasmaOrdered By: Zeus Lamas on 12-20-2021 Triglyceride [Mass/Vol] 57 mg/dL 35-149 [facility] Comment on above: TRIG ATP III CLASSIF ICATION TRIG less than 150 mg/dL Normal TRIG 150-199 mg/dL Borderline high TRIG 200-500 mg/dL High TRIG greater than 500 mg/dL Very high Standard traceable to the Center for Disease Conrtrol and Prevention (CDC) test method. Complete Blood Counton 05-16 Erythrocyte distribution width (RBC) [Ratio] 14.4 % Normal 11.0-15.0 [facility] [employer] Comment on above: Performed By: #### C BC #### [facility] [address] [place], [place] [id number] Hematocrit (Bld) [Volume fraction] 44.4 % Normal 35.0-47.0 [facility] [employer] Comment on above: Performed By: #### C BC #### [facility] [address], [place] [id number] Hemoglobin (Bld) [Mass/Vol] 14.1 g/dL Normal 11.6-15.5 [facility] [employer] Comment on above: Performed By: #### C BC #### [facility] [address], [place] [id number] MCH (RBC) [Entitic mass] 28.3 pg Normal 27.0-33.0 [facility] Comment on above: Performed By: #### C BC #### [facility] [address], [place] [id number] MCHC (RBC) [Mass/Vol] 31.8 g/dL Low 32.0-36.0 [facility] Comment on above: Performed By: #### C BC #### [facility] [address], [place] [id number] MCV (RBC) [Entitic vol] 89 fL Normal 80-100 [facility] Comment on above: Performed By: #### C BC #### [facility] [address], [place] [id number] Platelet mean volume (Bld) [Entitic vol] 10.40 fL Normal 7.50-12.50 [facility] Comment on above: Performed By: #### C BC #### [facility] [address], [place] [id number] Platelets (Bld) [#/Vol] 555 10*3/uL High 140-400 [facility] Comment on above: Performed By: #### C BC #### [facility] [address], [place] [id number] RBC (Bld) [#/Vol] 4.99 10*6/uL Normal 3.90-5.20 [facility] Comment on above: Performed By: #### C BC #### [facility] [address], [place] [id number] RDW-SD 46.8 fL Normal 37.0-50.0 [facility] Comment on above: Performed By: #### C BC #### [facility] [address], [place] [id number] WBC (Bld) [#/Vol] 6.7 10*3/uL Normal 3.8-11.0 [facility] Comment on above: Performed By: #### C BC #### [facility] [address], [place] [id number] CNOVon 03-17-2021 CNOV Office Visit (CARDMN ) GLORIA ALLEN ([id number]) 1960 F Date Time Provider Department 03/17/21 [...] to seek emergency care. She wore a e-Zassi event monitor for 12 days in January [...] bearing down or coughing Occur 3x/week Wore e-Zassi event monitor for 12 days in 01/2021. [...] No sudden deaths, atrial fibrillation. 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 , 3 children, 1 grandchild. Lives in [place], [place] Habits: Tobacco: none. Alcohol: 1 drink [...] acid (RHIANNON (more content not included)... Normal [facility] 03-17-2021 CNPN Telephone (CARDMN) GLROIA ALLEN ([id number]) 1960 F Date Time Provider Department 03/17/21 NIKITA REYES During your visit today, we recorded the following information about you: Philly Nair 03/17/2021 4:06 PM Signed Outside medical records scanned into VIVA drive. Disk uploaded to deltamethod: Echocardiogram 01/27/2021. Allergies As of Date: 03/17/2021 (Not on File) Date Reviewed: Never Reviewed Reason for Visit: Received Outside Medical Records [[id number]] Problem List As Of Date: 03/17/2021 (None) Encounter Status:Closed by PHILLY NAIR on 03/17/21 [facility] 12-31-2020 CNCO Letter Text [facility] CNPNon 12-30-2020 CNPN Telephone (REFPHY) GLORIA ALLEN ([id number]) 1960 F Date Time Provider Department 12/30/20 NO PCP (HISTORICAL) REFPHY During your visit today, we recorded the following information about you: Kyle Crowell 12/30/2020 9:12 AM Signed Patient: Gloria Allen Date of : 1960 Patient phone number: [phone] Referring Provider for the encounter: Zeus Lamas Requesting Provider: Nikita Reyes Reason for requesting visit (RFV/signs and symptoms/diagnosis): palpitations Person calling: via RP fax Return call to: self Medical Records/Insurance Card scanned into [employer]: No Comments: helder Boles 12/31/2020 10:34 AM Signed PrizzmTI RP - Message left for patient to call back to schedule an appointment in EP? for Palpitations, requesting Dr. Reyes per RP referrals. Allergies As of Date: 12/30/2020 (Not on File) Date Reviewed: Never Reviewed Reason for Visit: External Referrals/resources [909] Problem List As Of Date: 12/30/2020 (None) Encounter Status:Closed by KYLE MUNOZ on 12/30/20 [facility] CNPNon 12-23-2020 CNPN Telephone (REFPHY) GLORIA ALLEN ([id number]) 1960 F Date Time Provider Department 12/23/20 NO ONE (HISTORICAL) REFPHY During your visit today, we recorded the following information about you: Alexandria Hernandez 12/23/2020 7:19 AM Signed Patient: Gloria Allen Date of : 1960 Patient phone number: [phone] Referring Provider for the encounter: Dr Zeus Lamas Requesting Provider: Dr Wesley Mallory - Cardiology Reason for requesting visit (RFV/signs and symptoms/diagnosis): Tachycardia, palipatations Person calling: caregiver: ASHLEY Return call to: self Medical Records/Insurance Card scanned into [employer]: Yes Comments: Additional records saved to [employer] Cheyenne Boles 12/23/2020 9:31 AM Signed HVTI [...] ALEXANDRIA TERRY on 12/23/20 Normal [facility] Albumin [Mass/volume] in Ser um or PlasmaOrdered By: Rosa Romo on 12-16-2020 Albumin [Mass/Vol] 3.9 g/dL 2.9-4.4 [facility] Immunoglobulin light chains. kappa.free [Mass/volume] in SerumOrdered By: Rosa Romo on 12-16-2020 Immunoglobulin light chains.kappa.free (S) [Mass/Vol] 12.3 mg/L 3.3-19.4 [facility] Immunoglobulin light chains. kappa.free/Immunoglobulin light chains.lambda.free [MassOrdered By: Rosa Romo on 12-16-2020 Immunoglobulin light chains.kappa.free/Immu noglobulin light chains.lambda.free (S) [Mass ratio] 0.83 0.26-1.65 [facility] Comment on above: Performed at: [address] [id number] Senior Search Marketing Analyst: Osiel Combs PhD, Phone: [phone] Performed at: [address] [id number] Director: Osiel Combs PhD, Phone: [phone] Immunoglobulin light chains. lambda.free [Mass/volume] in Serum or PlasmaOrdered By: Rosa Romo on 12-16-2020 Immunoglobulin light chains.lambda.free [Mass/Vol] 14.8 mg/L 5.7-26.3 [facility] No Panel InformationOrdered By: Rosa Romo on 12-16-2020 25-Hydroxy Vitamin D Total 51.1 ng/mL 30-100 [facility] Comment on above: VITAMIN D STATUS [...] Electrophoresis M-Sonny Not observed g/dL Not Observed [facility] Protein Electrophoresis Note See comment . [facility] Comment on above: Protein electrophore sis scan will follow via computer, mail, or events solutions consultant delivery. Performed at: [facility] [employer] [id number] Senior Search Marketing Analyst: Osiel Combs PhD, Phone: [phone] Protein electrophore sis scan will follow via computer,mail, or events solutions consultant delivery.Performed at: [facility] [employer] [id number] Director: Osiel Combs PhD, Phone: [phone] Protein [Mass/volume] in Ser um or PlasmaOrdered By: Rosa Romo on 12-16-2020 Protein [Mass/Vol] 7.0 g/dL 6.0-8.5 [facility] Serum globulin measurement ( mass/volume)Ordered By: Rosa Romo on 12-16-2020 Globulin (S) [Mass/Vol] 3.1 g/dL 2.2-3.9 [facility] Serum or plasma albumin/glob ulin mass ratioOrdered By: Rosa Romo on 12-16-2020 Albumin/Globulin [Mass ratio] 1.3 {ratio} 0.7-1.7 [facility] Serum or plasma alpha 1 glob ulin measurement by electrophoresis (mass/volume)Ordered By: Rosa Romo on 12-16-2020 Alpha 1 globulin Elph [Mass/Vol] 0.2 g/dL 0.0-0.4 [facility] Serum or plasma alpha 2 glob ulin measurement by electrophoresis (mass/volume)Ordered By: Rosa Romo on 12-16-2020 Alpha 2 globulin Elph [Mass/Vol] 0.7 g/dL 0.4-1.0 [facility] Serum or plasma beta globuli n measurement by electrophoresis (mass/volume)Ordered By: Rosa Romo on 12-16-2020 Beta globulin Elph [Mass/Vol] 1.1 g/dL 0.7-1.3 [facility] Serum or plasma calcitriol m easurement (mass/volume)Ordered By: Rosa Romo on 12-16-2020 1,25-dihydroxyvitamin D3 [Mass/Vol] 60.1 pg/mL 19.9-79.3 [facility] Comment on above: Performed at: [employer] [address] [id number] Senior Search Marketing Analyst: Mitchell Glynn MD, Phone: [phone] Performed at: [employer] [address] [id number] Director: Mitchell Glynn MD, Phone: [phone] Serum or plasma gamma globul in measurement by electrophoresis (mass/volume)Ordered By: Rosa Romo on 12-16-2020 Gamma globulin Elph [Mass/Vol] 1.0 g/dL 0.4-1.8 [facility] Serum or plasma intact parat hyroid hormone measurement (mass/volume)Ordered By: Rosa Romo on 12-16-2020 Parathyrin.intact [Mass/Vol] 44.6 pg/mL 12- [facility] TSH DL <= 0.005 mIU/L QnOrde red By: Rosa Romo on 12-16-2020 TSH Qn 1.61 m[IU]/L 0.45-5.33 [facility] Thyroxine (T4) free [Mass/vo lume] in Serum or PlasmaOrdered By: Rosa Romo on 12-16-2020 Free T4 [Mass/Vol] 0.73 ng/dL 0.61-1.12 [facility] Activated partial thrombopla stin time (aPTT) in platelet poor plasma by coagulation aon 06-15-2020 aPTT Coag (PPP) [Time] 28.4 s 22.9-30.2 [facility] - Coagulationon 0 06-15-2020 PT Coag (PPP) [Time] 11.2 s 9.1-12.0 [facility] No Panel Informationon 06-15 Coagulation Factor VIII Activity 116 % 56-140 [facility] Platelet poor plasma interna tional normalized ratio (INR) by coagulation assay (relaton 06-15-2020 INR Coag (PPP) [Relative time] 1.1 {INR} 0.9-1.2 [facility] Comment on above: INR Therapeutic Rang [...] multimers IB Nom (PPP) See comment . [facility] Comment on above: VWF multimer analysi [...] developed and its performance characteristics determined by [employer]. It has not been cleared or approved by the Food and Drug Administration. Performed at: [facility] [address] [id number] Senior Search Marketing Analyst: Sivakumar Mejia MD, Phone: [phone] VWF multimer analysi s demonstrates a normal pattern anddistribution of bands. This is the pattern of multimersthat occurs in normal individuals as well as in those withtype 1 von Willebrand disease (VWD), type 2M and type 2NVWD. Some acquired von Willebrand syndrome cases may yielda normal pattern as well.No additional results available for further interpretation.This test was developed and its performance characteristicsdetermined by [employer]. It has not been cleared or approvedby the Food and Drug Administration.Performed at: [facility] [address] [id number] Director: Sivakumar Mejia MD, Phone: [phone] Von Willebrand factor activi ty measurementon 06-15-2020 vWf ristocetin cofactor act actual/normal Platelet aggregation (PPP) [Relative time] 62 % 50-200 [facility] Comment on above: Performed at: [facility] [employer] [id number] Senior Search Marketing Analyst: Mitchell Glynn MD, Phone: [phone] Performed at: [facility] [address] [id number] Director: Mitchell Glynn MD, Phone: [phone] Von Willebrand factor antige n measurementon 06-15-2020 vWf Ag Qn (PPP) 86 % 50-200 [facility] Comment on above: This test was develo ped and its performance characteristics determined by [facility]. It has not been cleared or approved by the Food and Drug Administration. This test was develo ped and its performance characteristicsdetermined by [facility]. It has not been cleared orapproved by the Food and Drug Administration. No Panel Informationon 06-04 BCR/abl See comment [facility] Comment on above: See report. Scanned copy available in EMR. Calreticulin Mutation See comment [facility] Comment on above: See report. Scanned copy available in EMR.See report. Scanned copy available in EMR. --- 06/11/20799 --- Calr previously reported as: See report. Scanned copy available in EMR. See report. Scanned copy available in EMR.See report. Scanned copy available in EMR. --- 06/11/20799 ---Calr previously reported as: See report. Scanned copy available in EMR. JAK2 [id number] See comment [facility] Comment on above: See report. [...] in EMR. MPL Mutation Analysis See comment [facility] Comment on above: See report. Scanned copy available in EMR. C reactive protein [Mass/vol ume] in Serum or Plasmaon 05-31-2020 CRP [Mass/Vol] < 0.5 mg/dL 0.0-1.0 [facility] - Hematology and Cell countson 05-31-2020 WBC (Bld) [#/Vol] 8.9 10*3/uL 4.5-11.0 [facility] Serum homogeneous pattern an tinuclear antibody (STEPHANIE) titeron 05-31-2020 Homogenous nuclear Ab pattern (S) [Titer] N/A [facility] Serum nuclear antibody titer on 05-31-2020 Nuclear Ab (S) [Titer] Negative . [facility] Comment on above: Negative <1:80 Borderline 1:80 Positive >1:80 Performed at: [employer] [address] [place], [place] [id number] Senior Search Marketing Analyst: Osiel Combs PhD, Phone: [phone] Negative <1:80 Borde rline 1:80 Positive >1:80Performed at: [facility] [address] [id number] Director: Osiel Combs PhD, Phone: [phone] Serum or plasma rheumatoid f actor measurement (units/volume)on 05-31-2020 Rheumatoid factor Qn [IU]/mL 0.0-13.9 [facility] Comment on above: Performed at: [employer] [facility] [place] [id number] Senior Search Marketing Analyst: Osiel Combs PhD, Phone: [phone] Performed at: [employer] [address] [id number] Director: Osiel Combs PhD, Phone: [phone] OVER READ - NCon 12-20-2017 OVER READ [...] 97.8 [degF] DO Zeus Matik Work Phone: [facility] 03-21-2023 11:11040 Body weight 74.38 kg DO Zeus Matik Work Phone: [facility] 03-21-2023 11:11-0400 Diastolic blood pressure 77 mm[Hg] DO Zeus Cristinachak Work Phone: [facility] 03-21-2023 11:11-0400 Heart rate 64 /min DO Zeus Cristinachak Work Phone: [facility] 03-21-2023 11:11-0400 Respiratory rate 16 /min DO Zeus Cristinachak Work Phone: [facility] 03-21-2023 11:11-0400 SaO2% (BldA) [Mass fraction] 98 % DO Zeus Cristinachak Work Phone: [facility] 03-21-2023 11:11-0400 Systolic blood pressure 132 mm[Hg] DO Zeus Vaschak Work Phone: [facility] 03-24-2022 11:17-0400 Body temperature 97.8 [degF] DO Zeus Cristinachak Work Phone: [facility] 03-24-2022 11:17-0400 Body weight 70.76 kg DO Zeus Cristinachak Work Phone: [facility] 03-24-2022 11:17-0400 Diastolic blood pressure 81 mm[Hg] DO Zeus Vaschak Work Phone: [facility] 03-24-2022 11:17-0400 Heart rate 58 /min DO Zeus Vaschak Work Phone: [facility] 03-24-2022 11:17-0400 Respiratory rate 16 /min DO Zeus Vaschak Work Phone: [facility] 03-24-2022 11:17-0400 SaO2% (BldA) [Mass fraction] 100 % DO Zeus Vaschak Work Phone: [facility] 03-24-2022 11:17-0400 Systolic blood pressure 133 mm[Hg] DO Zeus Vaschak Work Phone: [facility] 12-23-2021 14:43-0400 Body temperature 97.8 [degF] DO Zeus Vaschak Work Phone: [facility] 12-23-2021 14:43-0400 Body weight 69.85 kg DO Zeus Vaschak Work Phone: [facility] 12-23-2021 14:43-0400 Diastolic blood pressure 75 mm[Hg] DO Zeus Vaschak Work Phone: [facility] 12-23-2021 14:43-0400 Heart rate 62 /min DO Zeus Vaschak Work Phone: [facility] 12-23-2021 14:43-0400 Respiratory rate 16 /min DO Zeus Vaschak Work Phone: [facility] 12-23-2021 14:43-0400 SaO2% (BldA) [Mass fraction] 99 % DO Zeus Vaschak Work Phone: [facility] 12-23-2021 14:43-0400 Systolic blood pressure 126 mm[Hg] DO Zeus Vaschak Work Phone: [facility] 05-31-2020 13:09-0500 Body height 172.72 cm DO Zeus Lamas Work Phone: [facility] Encounters Encounter Date Encounter Type Care Provider Facility Start: 09-12-2023 ambulatory Rosa Demetrius Facility:[facility] Start: 09-11-2023 End: 09-11-2023 ambulatory Mckenzie Perkins Facility:[facility] Start: 09-11-2023 End: 09-11-2023 ambulatory DO Zeus Lamas Work Phone: [facility] Work Phone: Start: 09-11-2023 End: 09-11-2023 Patient encounter procedure DO Zeus Thornek Work Phone: [facility] Work Phone: Start: 06-05-2023 End: 06-05-2023 ambulatory MCKENZIE PERKINS Not Available Start: 03-21-2023 End: 03-21-2023 ambulatory DO Zeus Lamas Work Phone: [facility] Work Phone: Start: 03-21-2023 End: 03-21-2023 Registered Recurring DO Zeus Lamas Work Phone: [facility] Work Phone: Start: 03-19-2023 End: 03-19-2023 ambulatory Zeus Lamas Facility:[facility] Start: 03-19-2023 Encounter for genera l adult medical examination without abnormal findings Zeus Lamas [facility] Start: 03-19-2023 Registered Recurring DO Zeus Matik Work Phone: [facility] Work Phone: Start: 03-19-2023 End: 03-19-2023 ambulatory DO Zeus Matik Work Phone: [facility] Work Phone: Start: 03-19-2023 End: 03-19-2023 Patient encounter procedure DO Zeus Vaschak Work Phone: [facility] [place] Work Phone: Start: 09-08-2022 End: 09-08-2022 ambulatory DO Zeus Lamas Work Phone: [facility] Work Phone: Start: 09-08-2022 End: 09-08-2022 Patient encounter procedure DO Zeus Lamas Work Phone: [facility] Work Phone: Start: 08-31-2022 End: 08-31-2022 ambulatory DO Zeus Lamas Work Phone: [facility] Work Phone: Start: 08-31-2022 End: 08-31-2022 Patient encounter procedure DO Zeus Lamas Work Phone: [facility] Work Phone: Start: 03-24-2022 End: 03-24-2022 ambulatory DO Zeus Lamas Work Phone: [facility] Work Phone: Start: 03-24-2022 End: 03-24-2022 Registered Recurring DO Zeus Lamas Work Phone: [facility] Start: 12-23-2021 End: 12-23-2021 Registered Recurring DO Zeus Lamas Work Phone: [facility] Start: 12-20-2021 End: 12-20-2021 Patient encounter procedure DO Zeus Lamas Work Phone: [facility] [place] Start: 12-20-2017 Patient encounter ZEUS LAMAS Fac [...] Detail Author Start: 12-23-2021 Registered Recurring Thrombocytosis [facility] Start: 09-28-2021 [facility] Start: 09-21-2021 [facility] Start: 08-19-2021 [facility] Comprehensive metabo lic 1999 panel - Serum or Plasma [facility] Work Phone: Comprehensive metabo lic 1999 panel - Serum or Plasma [facility] Comprehensive metabo lic 1999 panel - Serum or Plasma [facility] Payers Date Payer Category Payer Self-pay [id number] 2020 Unknown [id number] 21 [id number] 2020 Unknown [id number] 1960 Unknown [id number] 2.16.84 [id number] Unknown TIFFANY TENORIO Unknown [id number] 2.16.8 [id number] Unknown [id number] 2.16.8 [id number] Unknown [id number] 2.16.8 [id number] Social History Date Type Detail Facility Start: 12-23-2021 End: 03-24-2022 Tobacco smoking status NHIS Never smoked tobacco (finding) [facility] Start: 1960 Sex Assigned At Female F [facility] Clinical Notes 05-31-2020 to 03-24-2022 Note Date & Type Note Facility 03-24-2022 Progress note Note Date/Time March 24, 2022 11:23[facility] at [address] [address] Hem/Onc Follow Up Note - OP Signed Patient: Gloria Allen MR#: [id number] : 1960 Acct:[id number] Age/Sex: 61 / F Type: REG RCR [...] iron stores in one month (f/u with HEAD OF MAINTENANCE). If platelets < 450,000 at that time, [...] 03/24/22 @ 16:09 by Rosa Romo MD) [place] teeth removed - Family History Family History: [...] % (Auto) 66.6, Lymph % (Auto) 24.9, Ralls % (Auto) 5.2, Eos % (Auto) 2.4, Baso % (Auto) 0.9, Neut # (Auto) 5.3, Lymph # (Auto) 2.0, Ralls # (Auto) 0.4, Eos # (Auto) 0.2, [...] 4-6 weeks to review iron studies with HEAD OF MAINTENANCE, 4 month f/u CBC and determine cytoreduction [...] for coordination of care (as documented) and [id number] counseling of patient and/or family. Dictated By: Rosa Romo MD DD/ 21 Signed By: <Electronically signed by MD Rosa Romo> 03/24/[address] [facility] Work Phone: 1(871) 347-434407-30-2022 Progress note Author Rosa Romo [facility] December 24, 2021 4:39pm Note Date/Time December 23, 2021 2:49 pm [facility] [place] [address] Hem/Onc Follow Up Note - OP Signed Patient: Gloria Allen MR#: [id number] : 1960 Acct:[id number] Age/Sex: 61 / F Type: REG RCR [...] iron stores in one month (f/u with HEAD OF MAINTENANCE). If platelets < 450,000 at that time, [...] Negative for environmental allergies and food allergies. [facility] - History Attestation statement: The following information was validated with the patient. Source: Old Records Reviewed - Medical History Medical History: Medical History (Last Reviewed 12/24/21 @ 16:34 by Rosa Romo MD) delivery delivered - Surgical History Surgical History: Surgical History (Last Reviewed 12/24/21 @ 16:34 by Rosa Romo MD) [place] teeth removed - Family History Family History: [...] % (Auto) 63.2, Lymph % (Auto) 26.9, Ralls % (Auto) 6.3, Eos % (Auto) 2.9, Baso % (Auto) 0.7, Neut # (Auto) 4.0, Lymph # (Auto) 1.7, Ralls # (Auto) 0.4, Eos # (Auto) 0.2, [...] 4-6 weeks to review iron studies with HEAD OF MAINTENANCE, 4 month f/u CBC and determine cytoreduction [...] for coordination of care (as documented) and zbfa-wo-[id number] counseling of patient and/or family. Dictated By: Rosa Romo MD DD/ 1448 Signed By: <Electronically signed by MD Rosa Romo> 12/24/21 1487 [facility] Work Phone: 1(328) 547-290904-23-2022 Progress note Author Rosa Romo [facility] September 17, 2021 6:26pm Note Date/Time September 16, 2021 12: 45pm [facility] [place] at [address] [address] Hem/Onc Follow Up Note - OP Signed Patient: Gloria Allen MR#: [id number] : 1960 Acct:[id number] Age/Sex: 61 / F Type: REG RCR [...] iron stores in one month (f/u with HEAD OF MAINTENANCE). If platelets < 450,000 at that time, [...] Negative for environmental allergies and food allergies. [facility] - History Attestation statement: The following information was validated with the patient. Source: Old Records Reviewed - Medical History Medical History: Medical History (Last Reviewed 09/17/21 @ 18:19 by Rosa Romo MD) delivery delivered - Surgical History Surgical History: Surgical History (Last Reviewed 09/17/21 @ 18:19 by Rosa Romo MD) [place] teeth removed - Family History Family History: [...] 4-6 weeks to review iron studies with HEAD OF MAINTENANCE, 4 month f/u CBC and determine cytoreduction [...] for coordination of care (as documented) and [id number]-zd-[id number] counseling of patient and/or family. Dictated By: Rosa Romo MD DD/ 1245 Signed By: <Electronically signed by MD Rosa Romo> 09/17/21 6704 [facility] Work Phone: 1(205) 352-458003-25-2022 Procedure [facility]12-23-2021 Progress note Author Rosa Romo [facility] May 19, 2021 7:48pm Note Date/Time May 19, 2021 3:41pm [facility] at [address] [address] Hem/Onc Follow Up Note - OP Signed Patient: Gloria Allen MR#: [id number] : 1960 Acct:[id number] Age/Sex: 61 / F Type: REG RCR [...] Negative for environmental allergies and food allergies. [facility] - History Attestation statement: The following information was validated with the patient. Source: Old Records Reviewed - Medical History Medical History: Medical History (Last Reviewed 05/19/21 @ 15:43 by Rosa Romo MD) delivery delivered - Surgical History Surgical History: Surgical History (Last Reviewed 05/19/21 @ 15:43 by Rosa Romo MD) Edmond teeth removed - Family History Family History: [...] 08:50 12/16/20 08:50 Outside Labs: Labs at [facility] laboratory: 05/16/2021: White blood cells 6700, hemoglobin [...] noted on monitoring. Transcribed By: ELIZABETH 03/17/21 3144 Dictated By: Zeus Lamas DO 03/16/21 8080 Assessment and Plan - TNM Staging Staging: [...] for coordination of care (as documented) and fvrv-ui-nsjs counseling of patient and/or family. Dictated By: Rosa Romo MD DD/ 1534 Signed By: <Electronically signed by MD Rosa Romo> 05/19/211947 [facility] Work Phone: 1([phone]) 471-344610-21-2021 NoteHNO ID: [id number] Author: Nikita Reyes MD Service: ? Author [...] to seek emergency care. She wore a e-Zassi event monitor for 12 days in January [...] bearing down or coughing Occur 3x/week Wore e-Zassi event monitor for 12 days in 01/2021. [...] No sudden deaths, atrial fibrillation. 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 , 3 children, 1 grandchild. Lives in [place], [place] Habits: Tobacco: none. Alcohol: 1 drink [...] tablet T (more content not included)... [facility]08-03-2021 Progress note Author Rosa Romo [facility] December 28, 2020 7:12am Note Date/Time December 27, 2020 3:4 6pm [facility] [place] [address] Hem/Onc Follow Up Note - OP Signed Patient: Gloria Allen MR#: [id number] : 1960 Acct:[id number] Age/Sex: 60 / F Type: REG RCR [...] 12/28/20 @ 07:08 by Rosa Romo MD) Edmond teeth removed - Family History Family History: [...] for coordination of care (as documented) and cupk-zn-zgzz counseling of patient and/or family. Dictated By: Rosa Romo MD DD/ 1545 Signed By: <Electronically signed by MD Rosa Romo> 12/28/[address] [facility] Work Phone: 1([phone]) 316-146804-20-2021 Progress note Author Rosa Romo [facility] September 14, 2020 7:40pm Note Date/Time September 13, 2020 4:0 3pm [facility] [place] [address] Hem/Onc Follow Up Note - OP Signed Patient: Gloria Allen MR#: [id number] : 1960 Acct:[id number] Age/Sex: 60 / F Type: REG RCR [...] Negative for environmental allergies and food allergies. [facility] - History Attestation statement: The following information was validated with the patient. Source: Old Records Reviewed - Medical History Medical History: Medical History (Last Reviewed 09/14/20 @ 19:34 by Rosa Romo MD) delivery delivered - Surgical History Surgical History: Surgical History (Last Reviewed 09/14/20 @ 19:34 by Rosa Romo MD) Edmond teeth removed - Family History Family History: [...] % (Auto) 70.2, Lymph % (Auto) 19.6, Ralls % (Auto) 7.3, Eos % (Auto) 2.3, Baso % (Auto) 0.6, Neut # (Auto) 6.0, Lymph # (Auto) 1.7, Ralls # (Auto) 0.6, Eos # (Auto) 0.2, [...] for coordination of care (as documented) and mggp-gn-mslz counseling of patient and/or family. Dictated By: Rosa Romo MD DD/ 5764 Signed By: <Electronically signed by MD Rosa Romo> 09/14/201939 [facility] Work Phone: 1(145) 279-707201-18-2021 Progress note Author Rosa Romo [facility] June 14, 2020 4:10pm Note Date/Time June 14, 2020 3 :26pm [facility] [place] [id number] Hem/Onc Follow Up Note - OP Signed Patient: Gloria Allen MR#: [id number] : 1960 Acct:[id number] Age/Sex: 60 / F Type: REG RCR [...] 06/14/20 @ 15:59 by Rosa Romo MD) Edmond teeth removed - Family History Family History: [...] for coordination of care (as documented) and ycgj-gw-jvzp counseling of patient and/or family. Dictated By: Rosa Romo MD DD/ 1525 Signed By: <Electronically signed by MD Rosa Romo> 06/14/20 1610 [facility] Work Phone: 1(102) 865-138001-04-2021 Consult note Author Rosa Romo [facility] May 31, 2020 8:56pm Note Date/Time May 31, 2020 1: 29pm [facility] [place] [id number] Hem/Onc Consult Note - OP Signed Patient: Gloria Allen MR#: [id number] : 1960 Acct:[id number] Age/Sex: 60 / F Type: REG RCR [...] address epigastric pain with you in followup. [facility] - Medical History Medical History: Medical History (Last Reviewed 05/31/20 @ 20:40 by Rosa Romo MD) delivery delivered - Surgical History Surgical History: Surgical History (Last Reviewed 05/31/20 @ 20:40 by Rosa Romo MD) Edmond teeth removed - Family History Family History: [...] for coordination of care (as documented) and teoh-eg-rmjt counseling of patient and/or family. Dictated By: Rosa Romo MD DD/ 1329 Signed By: <Electronically signed by MD Rosa Romo> 05/31/202055 [facility] Work Phone: Evaluation note* Diagnosis Onset Date Resolution Status Thrombocytosis acute Epigastric pain chronic Essential thrombocytosis chr onic Iron deficiency anemia chron ic [facility] Work Phone: Evaluation noteNo assessment information available [facility] Work Phone: Evaluation note* Diagnosis Onset Date Resolution Status Thrombocytosis acute Epigastric pain chronic Essential thrombocytosis chr onic Iron deficiency anemia resol chelly [facility] Work Phone: Progress note Author Rosa Romo [facility] December 24, 2021 4:39pm Note Date/Time December 23, 2021 2:49 pm [facility] [place] at [address] [address] Hem/Onc Follow Up Note - OP Signed Patient: Gloria Allen MR#: [id number] : 1960 Acct:[id number] Age/Sex: 61 / F Type: REG RCR [...] iron stores in one month (f/u with HEAD OF MAINTENANCE). If platelets < 450,000 at that time, [...] Negative for environmental allergies and food allergies. [facility] - History Attestation statement: The following information was validated with the patient. Source: Old Records Reviewed - Medical History Medical History: Medical History (Last Reviewed 12/24/21 @ 16:34 by Rosa Romo MD) delivery delivered - Surgical History Surgical History: Surgical History (Last Reviewed 12/24/21 @ 16:34 by Rosa Romo MD) Edmond teeth removed - Family History Family History: [...] % (Auto) 63.2, Lymph % (Auto) 26.9, Ralls % (Auto) 6.3, Eos % (Auto) 2.9, Baso % (Auto) 0.7, Neut # (Auto) 4.0, Lymph # (Auto) 1.7, Ralls # (Auto) 0.4, Eos # (Auto) 0.2, [...] 4-6 weeks to review iron studies with HEAD OF MAINTENANCE, 4 month f/u CBC and determine cytoreduction [...] for coordination of care (as documented) and rfvg-ok-zlrk counseling of patient and/or family. Dictated By: Rosa Romo MD DD/ 1448 Signed By: <Electronically signed by MD Rosa Romo> 12/24/21 2873 [facility] Work Phone: Progress note Author Rosa Romo [facility] March 24, 2022 4:15pm Note Date/Time March 24, 2022 1 1:23am [facility] [place] [address] Hem/Onc Follow Up Note - OP Signed Patient: Gloria Allen MR#: [id number] : 1960 Acct:[id number] Age/Sex: 61 / F Type: REG RCR [...] iron stores in one month (f/u with HEAD OF MAINTENANCE). If platelets < 450,000 at that time, [...] Negative for environmental allergies and food allergies. [facility] - History Attestation statement: The following information was validated with the patient. Source: Old Records Reviewed - Medical History Medical History: Medical History (Last Reviewed 03/24/22 @ 16:09 by Rosa Romo MD) delivery delivered - Surgical History Surgical History: Surgical History (Last Reviewed 03/24/22 @ 16:09 by Rosa Romo MD) Edmond teeth removed - Family History Family History: [...] % (Auto) 66.6, Lymph % (Auto) 24.9, Ralls % (Auto) 5.2, Eos % (Auto) 2.4, Baso % (Auto) 0.9, Neut # (Auto) 5.3, Lymph # (Auto) 2.0, Ralls # (Auto) 0.4, Eos # (Auto) 0.2, [...] 4-6 weeks to review iron studies with HEAD OF MAINTENANCE, 4 month f/u CBC and determine cytoreduction [...] for coordination of care (as documented) and iqon-ql-ltox counseling of patient and/or family. Dictated By: Rosa Romo MD DD/ 1122 Signed By: <Electronically signed by MD Rosa Romo> 03/24/[address] [facility] Work Phone: Summary Purpose Family [...] and content) DATE CREATED AUTHOR 12/21/2017 [facility] DATE CREATED AUTHOR AUTHOR'S ORGANIZ ATION 05/16/2021 [facility] DATE CREATED AUTHOR AUTHOR'S ORGANIZ ATION 06/30/2021 [facility] DATE CREATED AUTHOR AUTHOR'S ORGANIZ ATION 06/06/2023 [facility] DATE CREATED AUTHOR AUTHOR'S ORGANIZ ATION 09/14/2023 [facility] [...] CLINICAL RECORDS. [facility]. provides no warranty or guarantee of the accuracy or completeness of information in this document.
[2024-02-20 10:15] VITALS: BP 132/77; PULSE 57; O2SAT 100
== END 2024-02-20 10:59 | disposition home or self-care (01) ==
LOC: VC 10:08
PROVIDERS: PCP Radiology Diagnostic Radiology; Visit Provider Radiology Diagnostic Radiology
DX: I83.813 Varicose veins of bilateral lower extremities with pain (principal)
CPT/HCPCS: 36471